=== PATIENT | male | born 1960 | race Caucasian/White ===

== ENCOUNTER 2016-09-11 11:43 | Inpatient (IN) | payer MEDICARE ==
[2016-09-11 13:02] LABS: Basophils % (A) 0 %; CH 30.9; CHCM 34.9; Eosinophils # (A) 0.1 k/uL (0-0.7); Eosinophils % (A) 1 %; HCT 45.6 % (39.0-53.0); HDW 2.67; HGB 16.5 gm/dL (13.0-17.5); Luc % (Auto) 1; Lymphocytes # (A) 1.1 k/uL (1.0-4.8); Lymphocytes % (A) 8 %; MCH 32.1 pg (25.0-35.0); MCHC 36.2 g/dL (31.0-37.0); MCV 88.9 fL (80.0-100.0); Mean Platelet Volume 6.6; Monocytes # (A) 0.6 k/uL (0-1.0); Monocytes % (A) 4 %; Neutrophils # (A) 12.2 k/uL (1.3-7.7); Neutrophils % (A) 87 %; RBC 5.13 m/uL (4.30-5.90); RDW 12.9 % (11.5-15.5); WBC (Perox) 13.68
[2016-09-11] MEDS ORDERED: SODIUM CHLORIDE 0.9% 1,000 ML IV ONE (13:06)
[2016-09-11] MEDS ORDERED: HYDROmorphone 1 MG/ML 1 ML SYRINGE IVP STA ×2 (13:06→15:48)
[2016-09-11] MEDS ORDERED: ONDANSETRON 4 MG/2 ML VIAL IVP STA (13:07)
--- NOTE | 2016-09-11 13:14 | ED ---
Abdominal Pain HPI <Christiano Garcia - Last Filed: 09/11/16 15:31> - General Source: patient, RN notes reviewed Mode of arrival: EMS Limitations: no limitations <Ale Esquivel - Last Filed: 09/11/16 16:10> - General Chief Complaint: Abdominal Pain Stated Complaint: Abd Pain Time Seen by Provider: 09/11/16 12:15 - History of Present Illness Initial Comments: Patient is a 56-year-old male presents emergency room for evaluation of abdominal pain. Patient states pain began last night after eating dinner and ice cream. Patient does state that he has a "bad gallbladder". Patient states that he has been having worsening pain throughout his abdomen. Patient does state that he was eating peaches earlier yesterday which causes him to have loose stools. Patient states he's been having a few episodes of explosive diarrhea throughout the night. Patient states he is very nauseous with vomiting. Patient states he has a history of appendectomy. Patient denies any other history of surgeries. Patient denies fevers or chills. Patient denies chest pain or shortness of breath. Patient denies headache or dizziness. Patient states he is having 10 out of 10 diffuse abdominal pain and cannot get comfortable. Patient denies new foods. Patient denies recent travel outside the country. Patient does state he was admitted at another hospital a few years ago for pancreatitis. Patient states symptoms do feel similar to pancreatitis. Patient denies smoking, illicit drug use or alcohol use. (Ale Esquivel) - Related Data Home Medications Medication Instructions Recorded Confirmed Cetirizine HCl [Zyrtec] 10 mg PO DAILY 08/09/15 09/11/16 Warfarin [Coumadin] 5 mg PO DIRECTED 08/09/15 09/11/16 Warfarin [Coumadin] 7.5 mg PO DIRECTED 08/09/15 09/11/16 Hydrochlorothiazide [Hydrodiuril] 25 mg PO DAILY 09/11/16 09/11/16 Meloxicam [Mobic] 15 mg PO BID 09/11/16 09/11/16 Ranitidine HCl 150 mg PO HS 09/11/16 09/11/16 oxyCODONE-APAP 10-325MG [Percocet 1 tab PO Q4H PRN 09/11/16 09/11/16 10-325 mg] Previous Rx's Medication Instructions Recorded Gabapentin [Neurontin] 300 mg PO TID #90 cap 10/30/15 Allergies Allergy/AdvReac Type Severity Reaction Status Date / Time doxycycline Allergy Unknown Verified 09/11/16 12:45 Review of Systems ROS Other: All systems not noted in ROS Statement are negative. <Christiano Garcia - Last Filed: 09/11/16 15:31> ROS Other: All systems not noted in ROS Statement are negative. <Ale Esquivel - Last Filed: 09/11/16 16:10> ROS Statement: Those systems with pertinent positive or pertinent negative responses have been documented in the HPI. Past Medical History Past Medical History: Asthma, COPD, Deep Vein Thrombosis (DVT), Osteoarthritis ( OA) Additional Past Medical History / Comment(s): lower back pain, hx pancreatitis History of Any Multi-Drug Resistant Organisms: None Reported Past Surgical History: Appendectomy, Orthopedic Surgery Additional Past Surgical History / Comment(s): meniscus repair rt knee, rt wrist surgery Past Anesthesia/Blood Transfusion Reactions: No Reported Reaction Past Psychological History: No Psychological Hx Reported Smoking Status: Never smoker Past Alcohol Use History: None Reported Past Drug Use History: None Reported - Past Family History Mother Family Medical History: Cancer, Deep Vein Thrombosis (DVT) Additional Family Medical History / Comment(s): lung cancer <Ale Esquivel - Last Filed: 09/11/16 16:10> General Exam <Christiano Garcia - Last Filed: 09/11/16 15:31> Limitations: no limitations General appearance: alert, in no apparent distress Head exam: Present: atraumatic, normocephalic, normal inspection Eye exam: Present: normal appearance ENT exam: Present: normal exam Neck exam: Present: normal inspection Respiratory exam: Present: normal lung sounds bilaterally. Absent: respiratory distress Cardiovascular Exam: Present: regular rate, normal rhythm, normal heart sounds GI/Abdominal exam: Present: soft, tenderness (Diffuse abdominal pain), guarding (voluntary guarding on palpation), normal bowel sounds. Absent: distended, rebound, rigid Extremities exam: Present: normal inspection Back exam: Present: normal inspection Neurological exam: Present: alert, oriented X3, CN II-XII intact, normal gait Psychiatric exam: Present: normal affect, normal mood Skin exam: Present: warm, dry, intact, normal color. Absent: rash <Ale Esquivel - Last Filed: 09/11/16 16:10> - General Exam Comments Initial Comments: Laying in exam room, uncomfortable secondary to discomfort (Ale Esquivel) Course <Christiano Garcia - Last Filed: 09/11/16 15:31> <Ale Esquivel - Last Filed: 09/11/16 16:10> Vital Signs 09/11/16 09/11/16 09/11/16 11:45 13:31 15:05 Temperature 97.6 F Pulse Rate 72 77 71 Respiratory 19 20 18 Rate Blood Pressure 160/95 164/75 156/75 O2 Sat by Pulse 100 98 97 Oximetry 09/11/16 16:06 Temperature 98.1 F Pulse Rate 77 Respiratory 20 Rate Blood Pressure 160/74 O2 Sat by Pulse 96 Oximetry - Reevaluation(s) Reevaluation #1: 09/11/16 15:31 I did personally do a [id number] evaluation the patient did discuss the findings with him. Patient does have evidence of acute pancreatitis also evidence of cholelithiasis and possible cholecystitis. I did discuss the case with Dr. Rollins, patient will be admitted with GI consultation as well as surgery consultation. I did consult the filtration operator surgeon directly. Patient does demonstrate midepigastric abdominal discomfort palpation he does demonstrate morgue obesity he has recently lost 60 pounds however. He did state he had a similar episode over a year ago at another facility. (Christiano Garcia) Medical Decision Making - Lab Data Result diagrams: 09/11/16 12:27 09/11/16 12:27 <Christiano Garcia - Last Filed: 09/11/16 15:31> - Lab Data Result diagrams: 09/11/16 12:27 09/11/16 12:27 - Radiology Data Radiology results: report reviewed, image reviewed <Ale Esquivel - Last Filed: 09/11/16 16:10> - Medical Decision Making Patient is a 56-year-old male presents to the emergency room for evaluation of diffuse abdominal pain. Labs significant for pancreatitis, liver enzymes elevated. Ultrasound significant for cholelithiasis, possible cholecystitis. Patient will be admitted. Case discussed with Dr. Garcia who discussed case with Dr. Segovia, who agreed to admit patient. Consult with surgery and GI. (Ale Esquivel) - Lab Data Lab Results 09/11/16 09/11/16 09/11/16 Range/Units 12:27 12:27 13:30 WBC 14.0 H (3.8-10.6) k/uL RBC 5.13 (4.30-5.90) m/uL Hgb 16.5 (13.0-17.5) gm/dL Hct 45.6 (39.0-53.0) % MCV 88.9 (80.0-100.0) fL MCH 32.1 (25.0-35.0) pg MCHC 36.2 (31.0-37.0) g/dL RDW 12.9 (11.5-15.5) % Plt Count 243 (150-450) k/uL Neutrophils % 87 % Lymphocytes % 8 % Monocytes % 4 % Eosinophils % 1 % Basophils % 0 % Neutrophils # 12.2 H (1.3-7.7) k/uL Lymphocytes # 1.1 (1.0-4.8) k/uL Monocytes # 0.6 (0-1.0) k/uL Eosinophils # 0.1 (0-0.7) k/uL Basophils # 0.0 (0-0.2) k/uL Sodium 141 (137-145) mmol/L Potassium 4.4 (3.5-5.1) mmol/L Chloride 104 (98-107) mmol/L Carbon Dioxide 21 L (22-30) mmol/L Anion Gap 16 mmol/L BUN 17 (9-20) mg/dL Creatinine 1.16 (0.66-1.25) mg/dL Est GFR (MDRD) Af Amer >60 (>60 ml/min/1.73 sqM) Est GFR (MDRD) Non-Af >60 (>60 ml/min/1.73 sqM) Glucose 137 H (74-99) mg/dL Calcium 9.3 (8.4-10.2) mg/dL Total Bilirubin 2.1 H (0.2-1.3) mg/dL AST 177 H (17-59) U/L ALT 159 H (21-72) U/L Alkaline Phosphatase 129 H (38-126) U/L Total Protein 7.1 (6.3-8.2) g/dL Albumin 4.2 (3.5-5.0) g/dL Amylase 3226 H* (30-110) U/L Lipase >92848 H (23-300) U/L Urine Color Yellow Urine Appearance Clear (Clear) Urine pH 5.5 (5.0-8.0) Ur Specific [place] 1.007 (1.001-1.035) Urine Protein Negative (Negative) Urine Glucose (UA) Negative (Negative) Urine Ketones Trace H (Negative) Urine Blood Negative (Negative) Urine Nitrite Negative (Negative) Urine Bilirubin Negative (Negative) Urine Urobilinogen <2.0 (<2.0) mg/dL Ur Leukocyte Esterase Negative (Negative) Disposition <Christiano Garcia - Last Filed: 09/11/16 15:31> Decision Date: 09/11/16 <Ale Esquivel - Last Filed: 09/11/16 16:10> Clinical Impression: Pancreatitis, Cholelithiasis Disposition: ADMITTED IP TO THIS [facility] Condition: Stable
[2016-09-11 13:17] LABS: ALT 159 U/L (21-72); AST 177 U/L (17-59); Alkaline Phosphatase 129 U/L (38-126); Anion Gap 16 mmol/L; Blood Urea Nitrogen 17 mg/dL (9-20); Calcium 9.3 mg/dL (8.4-10.2); Carbon Dioxide 21 mmol/L (22-30); Chloride 104 mmol/L (98-107); Glucose 137 mg/dL (74-99); Non-African American GFR(MDRD) >60 (>60 ml/min/1.73 sqM); Potassium 4.4 mmol/L (3.5-5.1); Sodium 141 mmol/L (137-145); Total Bilirubin 2.1 mg/dL (0.2-1.3); Total Protein 7.1 g/dL (6.3-8.2)
[2016-09-11 13:39] LABS: Amylase 3226 U/L (30-110)
[2016-09-11 13:45] LABS: Appearance,Urine Clear (Clear); Bilirubin,Urine Negative (Negative); Glucose,Urine (UA) Negative (Negative); Ketones,Urine Trace (Negative); Leukocyte Esterase,Urine Negative (Negative); Nitrite,Urine Negative (Negative); PH, Urine 5.5 (5.0-8.0); Protein,Urine Negative (Negative); Specific Gravity,Urine 1.007 (1.001-1.035); UA Billing (MACRO vs. MICRO) CHEM; Urobilinogen,Urine <2.0 mg/dL (<2.0)
--- NOTE | 2016-09-11 14:32 | US ---
EXAMINATION TYPE: US abdomen limited DATE OF EXAM: 09/11/2016 COMPARISON: NONE CLINICAL HISTORY: Pain. Abdominal pain, nausea EXAM MEASUREMENTS: Liver Length: 18.3 cm Gallbladder Wall: 0.4 cm CBD: 0.6 cm Right Kidney: 11.0 x 5.3 x 5.4 cm *Technical limitations due to patient's body habitus (380 pounds) and large amount of overlying bowel content Pancreas: Obscured by bowel gas Liver: limited evaluation Gallbladder: multiple stones, GB wall is thickened, the gallbladder is hydropic. Evidence for sonographic Concepcion's sign: yes CBD: limited evaluation Right Kidney: cystic area mid = 0.7cm. ?possible hypoechoic area upper pole = 2.9 x 1.9 x 2.2cm vs. normal lobulated tissue There is no ascites. IMPRESSION: The exam is limited due to patient body habitus. Coarse echotexture within the liver like ly reflects fatty infiltration, the liver is thought likely to be enlarged. Cholelithiasis, correlate for cholecystitis. Possible renal cyst not well evaluated on the right. Lobular contour is noted, di fficult to exclude mass at the upper pole.
--- NOTE | 2016-09-11 14:40 | XR ---
Abdomen HISTORY: Pain Frontal view of the abdomen submitted on 2 images There is a dextroscoliosis centered at approximately L2. Multilevel spondylosis is present. Lung base s are clear. Heart size appears borderline increased. No pneumothorax or pleural effusion. There are some distended loops of small bowel present. Some associated air-fluid level suspected. No pneumoperi toneum. impression: Findings may be due to enteritis or ileus, consider additional imaging if bowel obstructi on is suspected clinically. Borderline cardiac size.
[2016-09-11] MEDS ORDERED: NALOXONE 0.4 MG/ML 1 ML VIAL IV PRN (15:40)
[2016-09-11] MEDS ORDERED: KETOROLAC 30 MG/ML 1 ML VIAL IVP STA (15:48)
--- NOTE | 2016-09-11 15:59 | P.GSCN ---
History of Present Illness Consult date: 09/11/16 Reason for Consult: Abdominal pain History of present illness: Patient is a 56-year-old morbidly obese white male who presents to the emergency room with a complaint of diffuse abdominal pain. The pain started in the periumbilical area and became diffuse and increased in intensity over last night. The patient states that he had not eaten anything unusual. He does have a history of gallbladder disease in the past. He has had a history of pancreatitis in the past as well. An ultrasound revealed cholelithiasis and laboratory studies revealed an elevated white count of 14 amylase 3226 lipase of 20,000. Bili 2.1 AST 177 ALTs 159. Past surgical history: 1. Appendectomy 2. Knee surgery 3. Wrist surgery Medical history: Asthma COPD DVT Osteoarthritis. Which he has opioid use Social history: Smoking negative Alcohol negative Review of systems: HEENT negative Lungs: Asthma COPD Heart: Negative GI: Constipation related to opioids for back this disease Gallbladder disease/pancreatitis : Negative Review of Systems - Constitutional Constitutional Comment(s): Morbid obesity Reports as per HPI - Respiratory Reports as per HPI - Gastrointestinal Reports as per HPI - Musculoskeletal Musculoskeleta Comment(s): Back pain osteoarthritis Reports as per HPI Past Medical History Past Medical History: Asthma, COPD, Deep Vein Thrombosis (DVT), Osteoarthritis ( OA) Additional Past Medical History / Comment(s): lower back pain, hx pancreatitis History of Any Multi-Drug Resistant Organisms: None Reported Past Surgical History: Appendectomy, Orthopedic Surgery Additional Past Surgical History / Comment(s): meniscus repair rt knee, rt wrist surgery Past Anesthesia/Blood Transfusion Reactions: No Reported Reaction Past Psychological History: No Psychological Hx Reported Smoking Status: Never smoker Past Alcohol Use History: None Reported Past Drug Use History: None Reported - Past Family History Mother Family Medical History: Cancer, Deep Vein Thrombosis (DVT) Additional Family Medical History / Comment(s): lung cancer Medications and Allergies Home Medications Medication Instructions Recorded Confirmed Type Cetirizine HCl [Zyrtec] 10 mg PO DAILY 08/09/15 09/11/16 History Warfarin [Coumadin] 5 mg PO DIRECTED 08/09/15 09/11/16 History Warfarin [Coumadin] 7.5 mg PO DIRECTED 08/09/15 09/11/16 History Hydrochlorothiazide [Hydrodiuril] 25 mg PO DAILY 09/11/16 09/11/16 History Meloxicam [Mobic] 15 mg PO BID 09/11/16 09/11/16 History Ranitidine HCl 150 mg PO HS 09/11/16 09/11/16 History oxyCODONE-APAP 10-325MG [Percocet 1 tab PO Q4H PRN 09/11/16 09/11/16 History 10-325 mg] Allergies Allergy/AdvReac Type Severity Reaction Status Date / Time doxycycline Allergy Unknown Verified 09/11/16 12:45 Surgical - Exam Vital Signs Temp Pulse Resp BP Pulse Ox 97.6 F 72 19 160/95 100 09/11/16 11:45 09/11/16 11:45 09/11/16 11:45 09/11/16 11:45 09/11/16 11:45 - General obese - Eyes normal ocular movement - ENT normal pinna, normal nares, no hearing loss - Neck no masses, trachea midline, no lymphadectomy, no venous distension - Respiratory normal expansion, normal respiratory effort, clear to auscultation - Cardiovascular Rhythm: regular Heart Sounds: normal: S1, S2 - Abdomen Diffuse mild tenderness No guarding or rebound - Psychiatric oriented to time, oriented to person, oriented to place, speech is normal Results - Labs 09/11/16 12:27 09/11/16 12:27 Abnormal Lab Results - Last 24 Hours (Table) 09/11/16 09/11/16 09/11/16 Range/Units 12:27 12:27 13:30 WBC 14.0 H (3.8-10.6) k/uL Neutrophils # 12.2 H (1.3-7.7) k/uL Carbon Dioxide 21 L (22-30) mmol/L Glucose 137 H (74-99) mg/dL Total Bilirubin 2.1 H (0.2-1.3) mg/dL AST 177 H (17-59) U/L ALT 159 H (21-72) U/L Alkaline Phosphatase 129 H (38-126) U/L Amylase 3226 H* (30-110) U/L Lipase >08767 H (23-300) U/L Urine Ketones Trace H (Negative) Diabetes panel 09/11/16 Range/Units 12:27 Sodium 141 (137-145) mmol/L Potassium 4.4 (3.5-5.1) mmol/L Chloride 104 (98-107) mmol/L Carbon Dioxide 21 L (22-30) mmol/L BUN 17 (9-20) mg/dL Creatinine 1.16 (0.66-1.25) mg/dL Glucose 137 H (74-99) mg/dL Calcium 9.3 (8.4-10.2) mg/dL AST 177 H (17-59) U/L ALT 159 H (21-72) U/L Alkaline Phosphatase 129 H (38-126) U/L Total Protein 7.1 (6.3-8.2) g/dL Albumin 4.2 (3.5-5.0) g/dL Calcium panel 09/11/16 Range/Units 12:27 Calcium 9.3 (8.4-10.2) mg/dL Albumin 4.2 (3.5-5.0) g/dL Pituitary panel 09/11/16 Range/Units 12:27 Sodium 141 (137-145) mmol/L Potassium 4.4 (3.5-5.1) mmol/L Chloride 104 (98-107) mmol/L Carbon Dioxide 21 L (22-30) mmol/L BUN 17 (9-20) mg/dL Creatinine 1.16 (0.66-1.25) mg/dL Glucose 137 H (74-99) mg/dL Calcium 9.3 (8.4-10.2) mg/dL Adrenal panel 09/11/16 Range/Units 12:27 Sodium 141 (137-145) mmol/L Potassium 4.4 (3.5-5.1) mmol/L Chloride 104 (98-107) mmol/L Carbon Dioxide 21 L (22-30) mmol/L BUN 17 (9-20) mg/dL Creatinine 1.16 (0.66-1.25) mg/dL Glucose 137 H (74-99) mg/dL Calcium 9.3 (8.4-10.2) mg/dL Total Bilirubin 2.1 H (0.2-1.3) mg/dL AST 177 H (17-59) U/L ALT 159 H (21-72) U/L Alkaline Phosphatase 129 H (38-126) U/L Total Protein 7.1 (6.3-8.2) g/dL Albumin 4.2 (3.5-5.0) g/dL - Imaging US - abdomen: report reviewed Assessment and Plan Plan: Impression/plan: 1. 56-year-old white male morbid obesity 2. Gallstone pancreatitis 3. Osteoarthritis with back pain 4. Prior history of DVT Plan: 1. Admission and IV hydration 2. GI consult 3. Medical management 4. Repeat LFTs lipase and amylase in a.m.
[2016-09-11] MEDS: SODIUM CHLORIDE 0.9% 1,000 ML IV SCH (16:13)
--- NOTE | 2016-09-11 17:29 | P.HPIM ---
History of Present Illness Patient is a 56-year-old morbidly obese white male who presents to the emergency room with a complaint of diffuse abdominal pain. The pain started in the periumbilical area and became diffuse and increased in intensity over last night. The patient states that he had not eaten anything unusual. He does have a history of gallbladder disease in the past. He has had a history of pancreatitis in the past as well. His pain is about 10 x 10 in severity sharp in nature to myself with nausea no vomiting. An ultrasound revealed cholelithiasis and laboratory studies revealed an elevated white count of 14 amylase 3226 lipase of 20,000. Bili 2.1 AST 177 ALTs 159. Review of Systems REVIEW OF SYSTEMS: CONSTITUTIONAL: No fever, no malaise, no fatigue. HEENT: No recent visual problems or hearing problems. Denied any sore throat. CARDIOVASCULAR: No chest pain, orthopnea, PND, no palpitations, no syncope. PULMONARY: No shortness of breath, no cough, no hemoptysis. GASTROINTESTINAL: As described in HPI NEUROLOGICAL: No headaches, no weakness, no numbness. HEMATOLOGICAL: Denies any bleeding or petechiae. GENITOURINARY: Denies any burning micturition, frequency, or urgency. MUSCULOSKELETAL/RHEUMATOLOGICAL: Denies any joint pain, swelling, or any muscle pain. ENDOCRINE: Denies any polyuria or polydipsia. The rest of the 14-point review of systems is negative. Past Medical History Past Medical History: Asthma, COPD, Deep Vein Thrombosis (DVT), Osteoarthritis ( OA) Additional Past Medical History / Comment(s): lower back pain, hx pancreatitis History of Any Multi-Drug Resistant Organisms: None Reported Past Surgical History: Appendectomy, Orthopedic Surgery Additional Past Surgical History / Comment(s): meniscus repair rt knee, lt wrist surgery Past Anesthesia/Blood Transfusion Reactions: No Reported Reaction Past Psychological History: No Psychological Hx Reported Smoking Status: Never smoker Past Alcohol Use History: None Reported Past Drug Use History: None Reported - Past Family History Mother Family Medical History: Cancer, Deep Vein Thrombosis (DVT) Additional Family Medical History / Comment(s): lung cancer Medications and Allergies Home Medications Medication Instructions Recorded Confirmed Type Cetirizine HCl [Zyrtec] 10 mg PO DAILY 08/09/15 09/11/16 History Warfarin [Coumadin] 5 mg PO DIRECTED 08/09/15 09/11/16 History Warfarin [Coumadin] 7.5 mg PO DIRECTED 08/09/15 09/11/16 History Hydrochlorothiazide [Hydrodiuril] 25 mg PO DAILY 09/11/16 09/11/16 History Meloxicam [Mobic] 15 mg PO BID 09/11/16 09/11/16 History Ranitidine HCl 150 mg PO HS 09/11/16 09/11/16 History oxyCODONE-APAP 10-325MG [Percocet 1 tab PO Q4H PRN 09/11/16 09/11/16 History 10-325 mg] Allergies Allergy/AdvReac Type Severity Reaction Status Date / Time doxycycline Allergy Unknown Verified 09/11/16 12:45 Physical Exam Vitals: Vital Signs Temp Pulse Pulse Resp BP BP Pulse Ox 09/11/16 16:49 97.9 F 69 16 168/91 96 09/11/16 16:06 98.1 F 77 20 160/74 96 09/11/16 15:05 71 18 156/75 97 09/11/16 13:31 77 20 164/75 98 09/11/16 11:45 97.6 F 72 19 160/95 100 Intake and Output 09/11/16 09/11/16 09/11/16 06:59 14:59 22:59 Other: Voiding Method Toilet Weight 172.365 kg Patient Weight 09/12/16 06:59 Weight 172.365 kg PHYSICAL EXAMINATION: GENERAL: The patient is alert and oriented x3, not in any acute distress. Well developed, well nourished. HEENT: Pupils are round and equally reacting to light. EOMI. No scleral icterus. No conjunctival pallor. Normocephalic, atraumatic. No pharyngeal erythema. No thyromegaly. CARDIOVASCULAR: S1 and S2 present. No murmurs, rubs, or gallops. PULMONARY: Chest is clear to auscultation, no wheezing or crackles. ABDOMEN: Soft, tenderness in the left upper quadrant area, morbidly obese belly. No rebound or rigidity. Bowel sounds are present. MUSCULOSKELETAL: No joint swelling or deformity. EXTREMITIES: No cyanosis, clubbing, or pedal edema. NEUROLOGICAL: Gross neurological examination did not reveal any focal deficits. SKIN: No rashes. Results CBC & Chem 7: 09/11/16 12:27 09/11/16 12:27 Labs: Abnormal Lab Results - Last 24 Hours (Table) 09/11/16 09/11/16 09/11/16 Range/Units 12:27 12:27 13:30 WBC 14.0 H (3.8-10.6) k/uL Neutrophils # 12.2 H (1.3-7.7) k/uL Carbon Dioxide 21 L (22-30) mmol/L Glucose 137 H (74-99) mg/dL Total Bilirubin 2.1 H (0.2-1.3) mg/dL AST 177 H (17-59) U/L ALT 159 H (21-72) U/L Alkaline Phosphatase 129 H (38-126) U/L Amylase 3226 H* (30-110) U/L Lipase >62436 H (23-300) U/L Urine Ketones Trace H (Negative) Thrombosis Risk Factor Assmnt - Choose All That Apply Each Factor Represents 1 point: Age 41-60 years, Obesity (BMI >25) Each Risk Factor Represents 3 Points: History of DVT/PE Thrombosis Risk Factor Assessment Total Risk Factor Score: 5 Thrombosis Risk Factor Assessment Level: High Risk Assessment and Plan Plan: #1 gallstone Pancreatitis: Patient will be nothing by mouth patient will was started on IV fluids which will be continued. Surgery was consulted. Opiate in ano. An analgesia for pain 2 elevated liver enzymes due to cholelithiasis possible choledocholithiasis for which gastro-oncology was consulted. 3 morbid obesity: Patient apparently lost 60 pounds of weight and still trying to lose weight. Patient will benefit from sleep apnea evaluation. #4 hypertension: Hydrocodone as it will be held as patient is on IV fluids. 5 DVT in the past on Coumadin, DVT is more than 6 months to hold off on Coumadin for now. #6 as well without any acute exacerbation.
[2016-09-11 17:55] LABS: INR 3.1 (<1.2); Prothrombin Time 29.5 sec (9.0-12.0)
[2016-09-11] MEDS: HYDROmorphone 1 MG/ML 1 ML SYRINGE IV PRN ×2 (19:48→22:25)
[2016-09-11] MEDS: KETOROLAC 30 MG/ML 1 ML VIAL IVP PRN (20:47)
[2016-09-11] MEDS: PANTOPRAZOLE 40 MG/10 ML VIAL IVP SCH (20:48)
[2016-09-12] MEDS: HYDROmorphone 1 MG/ML 1 ML SYRINGE IV PRN ×5 (00:28→07:44)
[2016-09-12] MEDS: SODIUM CHLORIDE 0.9% 1,000 ML IV SCH ×3 (02:23→20:10)
[2016-09-12] MEDS: KETOROLAC 30 MG/ML 1 ML VIAL IVP PRN ×4 (02:54→22:22)
[2016-09-12 07:26] LABS: Basophils % (A) 0 %; CH 31.3; CHCM 34.2; Eosinophils % (A) 0 %; HCT 46.4 % (39.0-53.0); HDW 2.51; HGB 15.7 gm/dL (13.0-17.5); INR 3.6 (<1.2); Luc # (Auto) 0.08; Luc % (Auto) 1; Lymphocytes # (A) 0.9 k/uL (1.0-4.8); Lymphocytes % (A) 6 %; MCH 31.1 pg (25.0-35.0); MCHC 33.9 g/dL (31.0-37.0); MCV 91.8 fL (80.0-100.0); Mean Platelet Volume 6.6; Monocytes # (A) 0.5 k/uL (0-1.0); Monocytes % (A) 3 %; Neutrophils # (A) 12.6 k/uL (1.3-7.7); Neutrophils % (A) 90 %; Prothrombin Time 35.4 sec (9.0-12.0); RBC 5.06 m/uL (4.30-5.90); RDW 12.8 % (11.5-15.5); WBC (Perox) 13.83
[2016-09-12 07:30] LABS: ALT 125 U/L (21-72); AST 77 U/L (17-59); Alkaline Phosphatase 110 U/L (38-126); Anion Gap 13 mmol/L; Blood Urea Nitrogen 20 mg/dL (9-20); Calcium 8.5 mg/dL (8.4-10.2); Carbon Dioxide 21 mmol/L (22-30); Chloride 105 mmol/L (98-107); Glucose 111 mg/dL (74-99); Non-African American GFR(MDRD) >60 (>60 ml/min/1.73 sqM); Potassium 3.9 mmol/L (3.5-5.1); Sodium 139 mmol/L (137-145); Total Protein 6.5 g/dL (6.3-8.2)
[2016-09-12 07:36] LABS: Amylase 1711 U/L (30-110)
[2016-09-12] MEDS: PANTOPRAZOLE 40 MG/10 ML VIAL IVP SCH ×2 (07:47→22:12)
[2016-09-12] MEDS: HYDROmorphone 2 MG/ML 1 ML SYRINGE IVP PRN ×6 (09:20→22:11)
--- NOTE | 2016-09-12 10:38 | P.PN ---
Subjective Patient is a 56-year-old morbidly morbidly obese white male who presented to the emergency room with a complaint of midepigastric abdominal discomfort. He was noted to have gallstone pancreatitis. The pain has become less at this time. Patient's amylase is decreased to 1711 and his lipase to 6006. He is been seen in consultation by Dr. Oconnor for possible ERCP. Objective - Vital Signs Vital signs: Vital Signs Temp 98.1 F 09/12/16 07:00 Pulse 90 09/12/16 07:00 Resp 15 09/12/16 07:00 BP 179/97 09/12/16 07:00 Pulse Ox 96 09/12/16 03:33 Intake & Output 09/11/16 09/12/16 09/12/16 18:59 06:59 18:59 Intake Total 1100 Output Total 100 Balance 1000 Weight 172.365 kg Intake: Intake, IV Titration 800 Amount Sodium Chloride 0.9% 1, 800 000 ml @ 100 mls/hr IV . Q10H BRIGITTE Rx#:[id number] Oral 300 Output: Urine 100 Other: Voiding Method Toilet Toilet # Voids 2 - Constitutional General appearance: Present: morbidly obese - Respiratory Respiratory: bilateral: CTA - Cardiovascular Rhythm: regular Heart sounds: normal: S1, S2 - Gastrointestinal Gastrointestinal Comment(s): Tenderness midepigastric and right upper quadrant area No guarding or rebound - Psychiatric Psychiatric: Present: A&O x's 3, appropriate affect, intact judgment & insight - Labs CBC & Chem 7: 09/12/16 06:18 09/12/16 06:18 Labs: Abnormal Lab Results - Last 24 Hours (Table) 09/11/16 09/11/16 09/11/16 Range/Units 12:27 12:27 12:27 WBC 14.0 H (3.8-10.6) k/uL Neutrophils # 12.2 H (1.3-7.7) k/uL Lymphocytes # (1.0-4.8) k/uL PT 29.5 H (9.0-12.0) sec INR 3.1 H (<1.2) Carbon Dioxide 21 L (22-30) mmol/L Glucose 137 H (74-99) mg/dL Total Bilirubin 2.1 H (0.2-1.3) mg/dL AST 177 H (17-59) U/L ALT 159 H (21-72) U/L Alkaline Phosphatase 129 H (38-126) U/L Amylase 3226 H* (30-110) U/L Lipase >43222 H (23-300) U/L Urine Ketones (Negative) 09/11/16 09/11/16 09/12/16 Range/Units 13:30 16:48 06:18 WBC 14.0 H (3.8-10.6) k/uL Neutrophils # 12.6 H (1.3-7.7) k/uL Lymphocytes # 0.9 L (1.0-4.8) k/uL PT (9.0-12.0) sec INR (<1.2) Carbon Dioxide (22-30) mmol/L Glucose (74-99) mg/dL Total Bilirubin (0.2-1.3) mg/dL AST (17-59) U/L ALT (21-72) U/L Alkaline Phosphatase (38-126) U/L Amylase 2661 H* (30-110) U/L Lipase (23-300) U/L Urine Ketones Trace H (Negative) 09/12/16 09/12/16 Range/Units 06:18 06:18 WBC (3.8-10.6) k/uL Neutrophils # (1.3-7.7) k/uL Lymphocytes # (1.0-4.8) k/uL PT 35.4 H (9.0-12.0) sec INR 3.6 H (<1.2) Carbon Dioxide 21 L (22-30) mmol/L Glucose 111 H (74-99) mg/dL Total Bilirubin (0.2-1.3) mg/dL AST 77 H (17-59) U/L ALT 125 H (21-72) U/L Alkaline Phosphatase (38-126) U/L Amylase 1711 H* (30-110) U/L Lipase 6006 H (23-300) U/L Urine Ketones (Negative) Assessment and Plan Plan: Impression/plan: 1. 56-year-old white male morbid obesity 2. Gallstone pancreatitis 3. Osteoarthritis with back pain 4. Prior history of DVT Plan: 1. Admission and IV hydration 2. GI consult 3. Medical management 4. Repeat LFTs lipase and amylase in a.m. 5. Recommend DVT prophylaxis
[2016-09-12] MEDS ORDERED: BISACODYL 10 MG SUPP RECTAL STA (13:48)
--- NOTE | 2016-09-12 14:14 | P.PN ---
Subjective Patient was admitted for gall stone pancreatitis. His symptoms of epigastric abdominal pain improved, lipase improved and liver enzymes improved. Patient will remain nothing by mouth today. Patient is coming of constipation and patient does have some intertrigo and patient was started on nystatin topical. REVIEW OF SYSTEMS: CARDIOVASCULAR: No chest pain, no orthopnea, no PND, no palpitations. PULMONARY: Denied any shortness of breath. No cough or hemoptysis. GASTROINTESTINAL: As described in HPI NEUROLOGIC: No headaches, no weakness, no numbness. Objective - Vital Signs Vital signs: Vital Signs Temp 98 F 09/12/16 13:54 Pulse 86 09/12/16 13:54 Resp 16 09/12/16 13:54 BP 146/85 09/12/16 13:54 Pulse Ox 98 09/12/16 13:54 Intake & Output 09/11/16 09/12/16 09/12/16 18:59 06:59 18:59 Intake Total 1100 Output Total 100 Balance 1000 Weight 172.365 kg Intake: Intake, IV Titration 800 Amount Sodium Chloride 0.9% 1, 800 000 ml @ 100 mls/hr IV . Q10H [facility] Rx#:[id number] Oral 300 Output: Urine 100 Other: Voiding Method Toilet Toilet # Voids 2 - Exam GENERAL: The patient is alert and oriented x3, not in any acute distress. Well developed, well nourished. HEENT: Pupils are round and equally reacting to light. EOMI. No scleral icterus. No conjunctival pallor. Normocephalic, atraumatic. No pharyngeal erythema. No thyromegaly. CARDIOVASCULAR: S1 and S2 present. No murmurs, rubs, or gallops. PULMONARY: Chest is clear to auscultation, no wheezing or crackles. ABDOMEN: Soft, tenderness in the left upper quadrant area, morbidly obese belly. No rebound or rigidity. Bowel sounds are present. MUSCULOSKELETAL: No joint swelling or deformity. EXTREMITIES: No cyanosis, clubbing, or pedal edema. NEUROLOGICAL: Gross neurological examination did not reveal any focal deficits. SKIN: No rashes. - Labs CBC & Chem 7: 09/12/16 06:18 09/12/16 06:18 Labs: Abnormal Lab Results - Last 24 Hours (Table) 09/11/16 09/11/16 09/12/16 Range/Units 12:27 16:48 06:18 WBC 14.0 H (3.8-10.6) k/uL Neutrophils # 12.6 H (1.3-7.7) k/uL Lymphocytes # 0.9 L (1.0-4.8) k/uL PT 29.5 H (9.0-12.0) sec INR 3.1 H (<1.2) Carbon Dioxide (22-30) mmol/L Glucose (74-99) mg/dL AST (17-59) U/L ALT (21-72) U/L Amylase 2661 H* (30-110) U/L Lipase (23-300) U/L 09/12/16 09/12/16 Range/Units 06:18 06:18 WBC (3.8-10.6) k/uL Neutrophils # (1.3-7.7) k/uL Lymphocytes # (1.0-4.8) k/uL PT 35.4 H (9.0-12.0) sec INR 3.6 H (<1.2) Carbon Dioxide 21 L (22-30) mmol/L Glucose 111 H (74-99) mg/dL AST 77 H (17-59) U/L ALT 125 H (21-72) U/L Amylase 1711 H* (30-110) U/L Lipase 6006 H (23-300) U/L Assessment and Plan Plan: #1 gallstone Pancreatitis: Patient will be nothing by mouth patient will was started on IV fluids which will be continued. Surgery was consulted. Opiate in ano. An analgesia for pain today patient will remain nothing by mouth. 2 elevated liver enzymes due to cholelithiasis possible choledocholithiasis for which gastro-oncology was consulted. 3 morbid obesity: Patient apparently lost 60 pounds of weight and still trying to lose weight. Patient will benefit from sleep apnea evaluation. #4 hypertension: Hydrocodone as it will be held as patient is on IV fluids. 5 DVT in the past on Coumadin, INR is subtherapeutic will continue to hold and repeat INR tomorrow #6 as well without any acute exacerbation. 7constipation will use rectal suppository.
[2016-09-12] MEDS: HEPARIN SODIUM,PORCINE 5,000 UNIT/ML 1 ML VIAL SQ SCH (15:46)
[2016-09-13] MEDS: HYDROmorphone 2 MG/ML 1 ML SYRINGE IVP PRN ×10 (00:20→20:06)
[2016-09-13] MEDS: HEPARIN SODIUM,PORCINE 5,000 UNIT/ML 1 ML VIAL SQ SCH ×2 (00:20→08:24)
[2016-09-13] MEDS: KETOROLAC 30 MG/ML 1 ML VIAL IVP PRN ×4 (04:32→23:51)
--- NOTE | 2016-09-13 07:52 | P.CONS ---
History of Present Illness - Reason for Consult Consult date: 09/12/16 Acute pancreatitis - History of Present Illness The patient is a 56-year-old morbidly obese white male who presented to the emergency room with the complaint of diffuse abdominal pain. The pain started in the periumbilical area and became diffuse and increased in intensity. He does have a history of gallbladder disease and had a similar episode in the past and was working on loosing weight in anticipation of cholecystectomy at some point. An ultrasound revealed cholelithiasis and laboratory studies revealed an elevated white count of 14 amylase 3226 lipase of 20,000. Bili 2.1 AST 177 ALTs 159. Review of Systems Constitutional: Denies fever, chills, sweats, weight gain, or loss. HEENT: Negative for migraines, blurred vision or loss, earaches, drainage, tinnitus, oral mucosal lesions, dysphagia, or odynophagia. Cardiac: Hypertension. Negative for chest pain, arrhythmias, or palpitation. Respiratory: Negative for shortness of breath, hemoptysis, cough, or sputum production. Gastrointestinal: See HPI for pertinent findings. Genitourinary: Negative for hematuria, urgency, frequency, polyuria, dysuria, or penile discharge. Musculoskeletal: Negative for muscle aches, swelling, arthritis, and arthralgias. Neurologic: RLS. Negative for stroke or TIA. Endocrine: Diabetes. Negative for thyroid problems. Skin: Negative for rash or itching. Psychiatric: Negative history for depression and anxiety Past Medical History Past Medical History: Asthma, COPD, Deep Vein Thrombosis (DVT), Osteoarthritis ( OA) Additional Past Medical History / Comment(s): lower back pain, hx pancreatitis History of Any Multi-Drug Resistant Organisms: None Reported Past Surgical History: Appendectomy, Orthopedic Surgery Additional Past Surgical History / Comment(s): meniscus repair rt knee, lt wrist surgery Past Anesthesia/Blood Transfusion Reactions: No Reported Reaction Past Psychological History: No Psychological Hx Reported Smoking Status: Never smoker Past Alcohol Use History: None Reported Past Drug Use History: None Reported - Past Family History Mother Family Medical History: Cancer, Deep Vein Thrombosis (DVT) Additional Family Medical History / Comment(s): lung cancer Medications and Allergies Home Medications Medication Instructions Recorded Confirmed Type Cetirizine HCl [Zyrtec] 10 mg PO DAILY 08/09/15 09/11/16 History Warfarin [Coumadin] 5 mg PO DIRECTED 08/09/15 09/11/16 History Warfarin [Coumadin] 7.5 mg PO DIRECTED 08/09/15 09/11/16 History Hydrochlorothiazide [Hydrodiuril] 25 mg PO DAILY 09/11/16 09/11/16 History Meloxicam [Mobic] 15 mg PO BID 09/11/16 09/11/16 History Ranitidine HCl 150 mg PO HS 09/11/16 09/11/16 History oxyCODONE-APAP 10-325MG [Percocet 1 tab PO Q4H PRN 09/11/16 09/11/16 History 10-325 mg] Allergies Allergy/AdvReac Type Severity Reaction Status Date / Time doxycycline Allergy Unknown Verified 09/11/16 12:45 Physical Exam Vitals: Vital Signs Temp Pulse Pulse Resp BP BP Pulse Ox 09/12/16 07:00 98.1 F 90 15 179/97 09/12/16 03:33 97.7 F 90 18 169/83 96 09/11/16 20:13 97.7 F 91 16 172/98 91 L 09/11/16 16:49 97.9 F 69 16 168/91 96 09/11/16 16:06 98.1 F 77 20 160/74 96 09/11/16 15:05 71 18 156/75 97 09/11/16 13:31 77 20 164/75 98 09/11/16 11:45 97.6 F 72 19 160/95 100 Intake and Output 09/11/16 09/12/16 09/12/16 22:59 06:59 14:59 Intake Total 50 1050 Output Total 100 Balance -50 1050 Intake: Intake, IV Titration 800 Amount Sodium Chloride 0.9% 1, 800 000 ml @ 100 mls/hr IV . Q10H [facility] Rx#:[id number] Oral 50 250 Output: Urine 100 Other: Voiding Method Toilet Toilet # Voids 2 General appearance: The patient is alert, oriented, in no acute distress. HET: Head is normocephalic and atraumatic. Conjunctivae pink, sclerae icteric. Pupils are equal and reactive. Oropharynx is clear without lesions. Neck: Supple without lymphadenopathy. Trachea midline. Heart: S1 S2. Lungs: No crackles or wheezes are heard. Abdomen: Soft, nontender, nondistended with bowel sounds. No peritoneal signs. No palpable organomegaly or masses. Extremities: Normal skin color and turgor. No cyanosis, rash, ulceration, clubbing, or edema. Radial and pedal pulses are 2/4 bilaterally. Neurological: No focal deficits. Strength and sensation are grossly intact. Results CBC & Chem 7: 09/12/16 06:18 09/12/16 06:18 Labs: Abnormal Lab Results - Last 24 Hours (Table) 09/11/16 09/11/16 09/11/16 Range/Units 12:27 12:27 12:27 WBC 14.0 H (3.8-10.6) k/uL Neutrophils # 12.2 H (1.3-7.7) k/uL Lymphocytes # (1.0-4.8) k/uL PT 29.5 H (9.0-12.0) sec INR 3.1 H (<1.2) Carbon Dioxide 21 L (22-30) mmol/L Glucose 137 H (74-99) mg/dL Total Bilirubin 2.1 H (0.2-1.3) mg/dL AST 177 H (17-59) U/L ALT 159 H (21-72) U/L Alkaline Phosphatase 129 H (38-126) U/L Amylase 3226 H* (30-110) U/L Lipase >79822 H (23-300) U/L Urine Ketones (Negative) 09/11/16 09/11/16 09/12/16 Range/Units 13:30 16:48 06:18 WBC 14.0 H (3.8-10.6) k/uL Neutrophils # 12.6 H (1.3-7.7) k/uL Lymphocytes # 0.9 L (1.0-4.8) k/uL PT (9.0-12.0) sec INR (<1.2) Carbon Dioxide (22-30) mmol/L Glucose (74-99) mg/dL Total Bilirubin (0.2-1.3) mg/dL AST (17-59) U/L ALT (21-72) U/L Alkaline Phosphatase (38-126) U/L Amylase 2661 H* (30-110) U/L Lipase (23-300) U/L Urine Ketones Trace H (Negative) 09/12/16 09/12/16 Range/Units 06:18 06:18 WBC (3.8-10.6) k/uL Neutrophils # (1.3-7.7) k/uL Lymphocytes # (1.0-4.8) k/uL PT 35.4 H (9.0-12.0) sec INR 3.6 H (<1.2) Carbon Dioxide 21 L (22-30) mmol/L Glucose 111 H (74-99) mg/dL Total Bilirubin (0.2-1.3) mg/dL AST 77 H (17-59) U/L ALT 125 H (21-72) U/L Alkaline Phosphatase (38-126) U/L Amylase 1711 H* (30-110) U/L Lipase 6006 H (23-300) U/L Urine Ketones (Negative) Assessment and Plan Plan: 56-year old male with cholelithiasis and GS pancreatitis. Agree with current management. I will consider an ERCP prior to cholecystectomy if his liver enzymes do not resolve completely to indicate passing a CBD stone. I will follow closely with you.
[2016-09-13] MEDS: PANTOPRAZOLE 40 MG/10 ML VIAL IVP SCH ×2 (08:24→20:06)
[2016-09-13] MEDS: SODIUM CHLORIDE 0.9% 1,000 ML IV SCH ×2 (08:24→18:00)
[2016-09-13] MEDS: ONDANSETRON 4 MG/2 ML VIAL IVP PRN (08:28)
[2016-09-13 08:29] LABS: CH 31.7; CHCM 33.8; HCT 45.2 % (39.0-53.0); MCH 31.2 pg (25.0-35.0); MCHC 33.1 g/dL (31.0-37.0); MCV 94.2 fL (80.0-100.0); Mean Platelet Volume 6.4; RDW 13.1 % (11.5-15.5)
[2016-09-13 08:37] LABS: INR 3.3 (<1.2); Prothrombin Time 32.1 sec (9.0-12.0)
[2016-09-13 08:41] LABS: ALT 86 U/L (21-72); AST 57 U/L (17-59); Alkaline Phosphatase 96 U/L (38-126); Anion Gap 11 mmol/L; Blood Urea Nitrogen 22 mg/dL (9-20); Calcium 8.2 mg/dL (8.4-10.2); Carbon Dioxide 24 mmol/L (22-30); Chloride 106 mmol/L (98-107); Glucose 98 mg/dL (74-99); Non-African American GFR(MDRD) >60 (>60 ml/min/1.73 sqM); Sodium 141 mmol/L (137-145); Total Bilirubin 1.5 mg/dL (0.2-1.3); Total Protein 6.2 g/dL (6.3-8.2)
[2016-09-13 09:38] LABS: Bilirubin, Delta 0.8 mg/dL (0.0-0.2)
[2016-09-13] MEDS ORDERED: RX INFO: IV CONTRAST WAS GIVEN 1 EACH MISC MISCELLANE PRN (10:58)
[2016-09-13] MEDS ORDERED: DOCUSATE 283 MG/5 ML ENEMA RECTAL PRN (11:02)
[2016-09-13] MEDS ORDERED: BISACODYL 10 MG SUPP RECTAL STA (11:04)
[2016-09-13] MEDS: IOHEXOL 350 MG/ML 25 ML BOTTLE (ORAL USE) PO PRN ×2 (11:18→12:18)
--- NOTE | 2016-09-13 11:36 | P.PN ---
Subjective Patient is a 56-year-old morbidly morbidly obese white male who presented to the emergency room with a complaint of midepigastric abdominal discomfort. He was noted to have gallstone pancreatitis. The patient was complaining this morning of increased abdominal discomfort in the lower abdomen. The midepigastric pain does not seem to have changed. The patient's white blood cell count is noted to be increased to 20,000. Patient's lipase remains elevated at 838. His AST is 57 a LT 86 total bili is 1.5 which is increased from yesterday at 1. Objective - Vital Signs Vital signs: Vital Signs Temp 98.3 F 09/13/16 07:00 Pulse 86 09/13/16 07:00 Resp 16 09/13/16 07:00 BP 160/81 09/13/16 07:00 Pulse Ox 95 09/13/16 07:00 Intake & Output 09/12/16 09/13/16 09/13/16 18:59 06:59 18:59 Intake Total 800 1050 Balance 800 1050 Intake: Intake, IV Titration 800 1050 Amount Sodium Chloride 0.9% 1, 800 1050 000 ml @ 100 mls/hr IV . Q10H [facility] Rx#:[id number] Other: Voiding Method Toilet Toilet Toilet # Voids 2 1 - Constitutional General appearance: Present: morbidly obese - Respiratory Respiratory: bilateral: diminished - Cardiovascular Rhythm: regular Heart sounds: normal: S1, S2 - Gastrointestinal Gastrointestinal Comment(s): Tender to palpation lower abdomen right and left sides, no guarding or rebound General gastrointestinal: Present: normal bowel sounds, soft - Psychiatric Psychiatric: Present: A&O x's 3, appropriate affect, intact judgment & insight - Labs CBC & Chem 7: 09/13/16 08:02 09/13/16 08:02 Labs: Abnormal Lab Results - Last 24 Hours (Table) 09/13/16 09/13/16 09/13/16 Range/Units 08:02 08:02 08:02 WBC 20.0 H (3.8-10.6) k/uL PT 32.1 H (9.0-12.0) sec INR 3.3 H (<1.2) BUN 22 H (9-20) mg/dL Calcium 8.2 L (8.4-10.2) mg/dL Total Bilirubin 1.5 H (0.2-1.3) mg/dL Delta Bilirubin 0.8 H (0.0-0.2) mg/dL ALT 86 H (21-72) U/L Total Protein 6.2 L (6.3-8.2) g/dL Lipase 838 H (23-300) U/L Assessment and Plan Plan: Impression/plan: 1. 56-year-old white male morbid obesity 2. Gallstone pancreatitis 3. Osteoarthritis with back pain 4. Prior history of DVT 5. Increased white blood cell count, complaining of bilateral lower quadrant abdominal discomfort Plan: 1. Admission and IV hydration 2. GI consult 3. Medical management 4. Repeat LFTs lipase and amylase in a.m. 5. Recommend DVT prophylaxis 6. ID consult 7. consider starting Zosyn if ok with ID 8. CT scan secondary to new onset lower abd pain
--- NOTE | 2016-09-13 13:49 | CT ---
EXAMINATION TYPE: CT abdomen pelvis w con DATE OF EXAM: 09/13/2016 COMPARISON: NONE HISTORY: Abdominal pain, history of pancreatitis CT DLP: 4265.9 mGycm Automated exposure control for dose reduction was used. TECHNIQUE: Helical acquisition of images was performed from the lung bases through the pelvis. CONTRAST: Performed with Oral Contrast and with IV Contrast, patient injected with 100 mL of Omnipaque 300. FINDINGS: There are small bilateral pleural effusions. There is some nodular infiltrate at the left posterior l pancho base. Liver and spleen appear normal. Bile ducts are not dilated. There are multiple small calcified gallst ones. There is some stranding around the pancreas. There is fluid in the anterior pararenal space on the le ft side and to a lesser extent the right side. There is no evidence of a bowel obstruction. There is no sign of appendicitis. There is no retroperit ulloa adenopathy. There is no adrenal mass. Kidneys show satisfactory contrast opacification. There is no hydronephrosi s. Bladder distends smoothly. There is a small amount of free fluid in the pelvis. There is multileve l spondylosis in the mid and lower lumbar spine. There is bony spinal stenosis at L3-4 L4-5. IMPRESSION: CALCIFIED GALLSTONES. NO DILATED DUCTS. FLUID AND FAT STRANDING AROUND THE PANCREAS CONSISTENT WITH P ANCREATITIS. MILD ASCITES FLUID IN THE PELVIS. SMALL PLEURAL EFFUSIONS WITH NODULAR INFILTRATE IN THE LEFT LOWER LOBE IN THE POSTERIOR BASAL SEGMENT .
[2016-09-13] MEDS: PIPERACILLIN-TAZOBACTAM 3.375 GM in DEXTROSE/WATER 1 50ML.BAG IVPB SCH ×2 (15:33→23:50)
--- NOTE | 2016-09-13 15:59 | P.PN ---
Subjective Patient was admitted for gall stone pancreatitis. His symptoms of epigastric abdominal pain improved, lipase improved and liver enzymes improved. Patient will remain nothing by mouth today. Patient is coming of constipation and patient does have some intertrigo and patient was started on nystatin topical. 09/13/2016 Patient's pancreatitis appears to have been improving patient will be started on clear liquid diet although patient had leukocytosis because of which patient was started on Zosyn for surgery will discuss his surgery and discontinue antibiotic tomorrow. Patient had a CT of the abdomen because of his continued severe abdominal pain which did not show any significant amount abnormality except for gallstone and pancreatitis along with some ascites in the abdomen along with bilateral pleural effusions because of which IV fluids were discontinued and patient was started on clear liquid diet today. INR is 3.3 commuter hold on Coumadin. Subcutaneous heparin will be discontinued REVIEW OF SYSTEMS: CARDIOVASCULAR: No chest pain, no orthopnea, no PND, no palpitations. PULMONARY: Denied any shortness of breath. No cough or hemoptysis. GASTROINTESTINAL: As described in HPI NEUROLOGIC: No headaches, no weakness, no numbness. Objective - Vital Signs Vital signs: Vital Signs Temp 99.4 F 09/13/16 13:52 Pulse 81 09/13/16 13:52 Resp 16 09/13/16 13:52 BP 166/88 09/13/16 13:52 Pulse Ox 94 L 09/13/16 13:52 Intake & Output 09/12/16 09/13/16 09/13/16 18:59 06:59 18:59 Intake Total 800 1050 Balance 800 1050 Intake: Intake, IV Titration 800 1050 Amount Sodium Chloride 0.9% 1, 800 1050 000 ml @ 100 mls/hr IV . Q10H [facility] Rx#:[id number] Other: Voiding Method Toilet Toilet Toilet # Voids 2 1 - Exam GENERAL: The patient is alert and oriented x3, not in any acute distress. Well developed, well nourished. HEENT: Pupils are round and equally reacting to light. EOMI. No scleral icterus. No conjunctival pallor. Normocephalic, atraumatic. No pharyngeal erythema. No thyromegaly. CARDIOVASCULAR: S1 and S2 present. No murmurs, rubs, or gallops. PULMONARY: Chest is clear to auscultation, no wheezing or crackles. ABDOMEN: Soft, tenderness in the left upper quadrant area, morbidly obese belly. No rebound or rigidity. Bowel sounds are present. MUSCULOSKELETAL: No joint swelling or deformity. EXTREMITIES: No cyanosis, clubbing, or pedal edema. NEUROLOGICAL: Gross neurological examination did not reveal any focal deficits. SKIN: No rashes. - Labs CBC & Chem 7: 09/13/16 08:02 09/13/16 08:02 Labs: Abnormal Lab Results - Last 24 Hours (Table) 09/13/16 09/13/16 09/13/16 Range/Units 08:02 08:02 08:02 WBC 20.0 H (3.8-10.6) k/uL PT 32.1 H (9.0-12.0) sec INR 3.3 H (<1.2) BUN 22 H (9-20) mg/dL Calcium 8.2 L (8.4-10.2) mg/dL Total Bilirubin 1.5 H (0.2-1.3) mg/dL Delta Bilirubin 0.8 H (0.0-0.2) mg/dL ALT 86 H (21-72) U/L Total Protein 6.2 L (6.3-8.2) g/dL Lipase 838 H (23-300) U/L Assessment and Plan Plan: #1 gallstone Pancreatitis: Intravenous fluids of dyspnea and patient was started on clear liquid diet Surgery was consulted. Opiate in ano. An analgesia for pain today patient will remain nothing by mouth. Reviewed CAT scan of the abdomen and pelvis 2 elevated liver enzymes due to cholelithiasis possible choledocholithiasis for which gastro-oncology was consulted. 3 morbid obesity: Patient apparently lost 60 pounds of weight and still trying to lose weight. Patient will benefit from sleep apnea evaluation. #4 hypertension: Hydrochlorothiazide is being held and patient blood pressures but elevated today. 5 DVT in the past on Coumadin, INR is subtherapeutic will continue to hold and repeat INR tomorrow #6 as well without any acute exacerbation. 7constipation will use rectal suppository.
[2016-09-13] MEDS ORDERED: WARFARIN 5 MG TAB PO SCH (18:00)
[2016-09-13] MEDS: NYSTATIN 100,000UNIT/GM CREAM 30 GM TUBE TOPICAL SCH (20:05)
[2016-09-14] MEDS: ONDANSETRON 4 MG/2 ML VIAL IVP PRN (00:02)
[2016-09-14] MEDS: HYDROmorphone 2 MG/ML 1 ML SYRINGE IVP PRN ×10 (00:24→22:38)
[2016-09-14] MEDS: KETOROLAC 30 MG/ML 1 ML VIAL IVP PRN ×3 (05:59→21:14)
[2016-09-14 06:44] LABS: Basophils % (A) 0 %; CH 31.5; CHCM 33.8; Eosinophils # (A) 0.2 k/uL (0-0.7); Eosinophils % (A) 1 %; HCT 43.6 % (39.0-53.0); HDW 2.46; HGB 14.4 gm/dL (13.0-17.5); Luc # (Auto) 0.17; Luc % (Auto) 1; Lymphocytes # (A) 0.7 k/uL (1.0-4.8); Lymphocytes % (A) 4 %; MCHC 33.1 g/dL (31.0-37.0); MCV 93.6 fL (80.0-100.0); Mean Platelet Volume 6.6; Monocytes # (A) 0.7 k/uL (0-1.0); Monocytes % (A) 4 %; Neutrophils # (A) 15.6 k/uL (1.3-7.7); Neutrophils % (A) 90 %; RBC 4.66 m/uL (4.30-5.90); RDW 12.9 % (11.5-15.5); WBC 17.3 k/uL (3.8-10.6); WBC (Perox) 16.77
[2016-09-14 07:01] LABS: INR 2.6 (<1.2); Prothrombin Time 24.7 sec (9.0-12.0)
[2016-09-14 07:14] LABS: Anion Gap 8 mmol/L; Blood Urea Nitrogen 20 mg/dL (9-20); Calcium 8.1 mg/dL (8.4-10.2); Carbon Dioxide 26 mmol/L (22-30); Chloride 105 mmol/L (98-107); Glucose 90 mg/dL (74-99); Non-African American GFR(MDRD) >60 (>60 ml/min/1.73 sqM); Potassium 3.9 mmol/L (3.5-5.1); Sodium 139 mmol/L (137-145)
--- NOTE | 2016-09-14 08:29 | P.PN ---
Subjective Patient is a 56-year-old morbidly morbidly obese white male who presented to the emergency room with a complaint of midepigastric abdominal discomfort. He was noted to have gallstone pancreatitis. The patient underwent a CAT scan yesterday which revealed calcified gallstones no dilated ducts fluid and stranding around the pancreas consistent with pancreatitis mild ascites fluid in the pelvis, small pleural effusions with nodular infiltrate in the left lower lobe in the posterior basal segment. The patient was complaining yesterday morning of increased abdominal discomfort in the lower abdomen. This morning the pain appears to be improved. The patient had dense started on clear liquids which she is tolerating. The patient's INR was noted to be 3.3 and today is down to 2.6. The patient's white blood cell count is decreased from 20,000 to 17.3. Objective - Vital Signs Vital signs: Vital Signs Temp 97.5 F L 09/14/16 02:05 Pulse 84 09/14/16 02:05 Resp 16 09/14/16 02:05 BP 177/80 09/14/16 02:05 Pulse Ox 94 L 09/14/16 02:05 Intake & Output 09/13/16 09/14/16 09/14/16 18:59 06:59 18:59 Intake Total 500 Balance 500 Intake: Intake, IV Titration 500 Amount Piperacillin-Tazobactam 3 100 .375 gm In Dextrose/Water 1 50ml.bag @ 12.5 mls/hr IVPB Q8HR [facility] Rx#: [id number] Sodium Chloride 0.9% 1, 400 000 ml @ 100 mls/hr IV . Q10H [facility] Rx#:[id number] Other: Voiding Method Toilet # Voids 3 - Constitutional General appearance: Present: morbidly obese - Respiratory Details: Decreased breath sounds at the bases - Cardiovascular Rhythm: regular Heart sounds: normal: S1, S2 - Gastrointestinal Gastrointestinal Comment(s): No guarding or rebound General gastrointestinal: Present: decreased bowel sounds, soft - Psychiatric Psychiatric: Present: A&O x's 3, appropriate affect, intact judgment & insight - Labs CBC & Chem 7: 09/14/16 06:27 09/14/16 06:27 Labs: Abnormal Lab Results - Last 24 Hours (Table) 09/13/16 09/13/16 09/13/16 Range/Units 08:02 08:02 08:02 WBC 20.0 H (3.8-10.6) k/uL Neutrophils # (1.3-7.7) k/uL Lymphocytes # (1.0-4.8) k/uL PT 32.1 H (9.0-12.0) sec INR 3.3 H (<1.2) BUN 22 H (9-20) mg/dL Calcium 8.2 L (8.4-10.2) mg/dL Total Bilirubin 1.5 H (0.2-1.3) mg/dL Delta Bilirubin 0.8 H (0.0-0.2) mg/dL ALT 86 H (21-72) U/L Total Protein 6.2 L (6.3-8.2) g/dL Lipase 838 H (23-300) U/L 09/14/16 09/14/16 09/14/16 Range/Units 06:27 06:27 06:27 WBC 17.3 H (3.8-10.6) k/uL Neutrophils # 15.6 H (1.3-7.7) k/uL Lymphocytes # 0.7 L (1.0-4.8) k/uL PT 24.7 H (9.0-12.0) sec INR 2.6 H (<1.2) BUN (9-20) mg/dL Calcium 8.1 L (8.4-10.2) mg/dL Total Bilirubin (0.2-1.3) mg/dL Delta Bilirubin (0.0-0.2) mg/dL ALT (21-72) U/L Total Protein (6.3-8.2) g/dL Lipase (23-300) U/L Assessment and Plan Plan: Impression/plan: 1. 56-year-old white male morbid obesity 2. Gallstone pancreatitis/ resolving 3. Osteoarthritis with back pain 4. Prior history of DVT 5. Decreased leukocytosis, computed tomography scan reviewed Plan: 1. Patient has been started on clear liquids 2. Elevated INR 3. Probable medical optimization and elective cholecystectomy with a normalized INR
[2016-09-14] MEDS: SODIUM CHLORIDE 0.9% 1,000 ML IV SCH ×3 (09:24→17:00)
[2016-09-14] MEDS: PANTOPRAZOLE 40 MG/10 ML VIAL IVP SCH (09:32)
[2016-09-14] MEDS: NYSTATIN 100,000UNIT/GM CREAM 30 GM TUBE TOPICAL SCH ×2 (09:34→21:14)
[2016-09-14] MEDS: PIPERACILLIN-TAZOBACTAM 3.375 GM in DEXTROSE/WATER 1 50ML.BAG IVPB SCH ×2 (09:36→16:58)
[2016-09-14] MEDS ORDERED: BISACODYL 10 MG SUPP RECTAL STA (09:56)
--- NOTE | 2016-09-14 14:53 | P.PN ---
Subjective Patient was admitted for gall stone pancreatitis. His symptoms of epigastric abdominal pain improved, lipase improved and liver enzymes improved. Patient will remain nothing by mouth today. Patient is coming of constipation and patient does have some intertrigo and patient was started on nystatin topical. 09/13/2016 Patient's pancreatitis appears to have been improving patient will be started on clear liquid diet although patient had leukocytosis because of which patient was started on Zosyn for surgery will discuss his surgery and discontinue antibiotic tomorrow. Patient had a CT of the abdomen because of his continued severe abdominal pain which did not show any significant amount abnormality except for gallstone and pancreatitis along with some ascites in the abdomen along with bilateral pleural effusions because of which IV fluids were discontinued and patient was started on clear liquid diet today. INR is 3.3 commuter hold on Coumadin. Subcutaneous heparin will be discontinued 09/14/2016 This is that is being advanced, patient and he is to have abdominal pain in the lower abdominal quadrants. REVIEW OF SYSTEMS: CARDIOVASCULAR: No chest pain, no orthopnea, no PND, no palpitations. PULMONARY: Denied any shortness of breath. No cough or hemoptysis. GASTROINTESTINAL: As described in HPI NEUROLOGIC: No headaches, no weakness, no numbness. Objective - Vital Signs Vital signs: Vital Signs Temp 98.1 F 09/14/16 07:00 Pulse 84 09/14/16 07:00 Resp 18 09/14/16 07:00 BP 156/90 09/14/16 07:00 Pulse Ox 95 09/14/16 07:00 Intake & Output 09/13/16 09/14/16 09/14/16 18:59 06:59 18:59 Intake Total 500 1000 Balance 500 1000 Intake: Intake, IV Titration 500 800 Amount Piperacillin-Tazobactam 3 100 50 .375 gm In Dextrose/Water 1 50ml.bag @ 12.5 mls/hr IVPB Q8HR [facility] Rx#: [id number] Sodium Chloride 0.9% 1, 400 750 000 ml @ 100 mls/hr IV . Q10H [facility] Rx#:[id number] Oral 200 Other: Voiding Method Toilet # Voids 3 - Exam GENERAL: The patient is alert and oriented x3, not in any acute distress. Well developed, well nourished. HEENT: Pupils are round and equally reacting to light. EOMI. No scleral icterus. No conjunctival pallor. Normocephalic, atraumatic. No pharyngeal erythema. No thyromegaly. CARDIOVASCULAR: S1 and S2 present. No murmurs, rubs, or gallops. PULMONARY: Chest is clear to auscultation, no wheezing or crackles. ABDOMEN: Soft, tenderness in the left upper quadrant area, morbidly obese belly. No rebound or rigidity. Bowel sounds are present. MUSCULOSKELETAL: No joint swelling or deformity. EXTREMITIES: No cyanosis, clubbing, or pedal edema. NEUROLOGICAL: Gross neurological examination did not reveal any focal deficits. SKIN: No rashes. - Labs CBC & Chem 7: 09/14/16 06:27 09/14/16 06:27 Labs: Abnormal Lab Results - Last 24 Hours (Table) 09/14/16 09/14/16 09/14/16 Range/Units 06:27 06:27 06:27 WBC 17.3 H (3.8-10.6) k/uL Neutrophils # 15.6 H (1.3-7.7) k/uL Lymphocytes # 0.7 L (1.0-4.8) k/uL PT 24.7 H (9.0-12.0) sec INR 2.6 H (<1.2) Calcium 8.1 L (8.4-10.2) mg/dL Assessment and Plan Plan: #1 gallstone Pancreatitis: Intravenous fluids and patient was started on clear liquid diet Reviewed CAT scan of the abdomen and pelvis. Plan is to to wait for the symptomatically improvement he patient has some medical improvement patient will be discharged home with soft diet and patient will come back for cholecystectomy. If pain in the right upper quadrant worsens with food patient may need surgery before his discharge. 2 elevated liver enzymes due to cholelithiasis possible choledocholithiasis for which gastro-oncology evaluated the patient. 3 morbid obesity: Patient apparently lost 60 pounds of weight and still trying to lose weight. Patient will benefit from sleep apnea evaluation. #4 hypertension: Hydrochlorothiazide is being held and patient blood pressures but elevated today. 5 DVT in the past on Coumadin, INR is subtherapeutic will continue to hold and repeat INR tomorrow #6 as well without any acute exacerbation. 7constipation will use rectal suppository.
[2016-09-14 17:42] LABS: Appearance,Urine Clear (Clear); Bacteria,Urine Occasional /hpf; Bilirubin,Urine Negative (Negative); Glucose,Urine (UA) Negative (Negative); Ketones,Urine 1+ (Negative); Leukocyte Esterase,Urine Negative (Negative); Nitrite,Urine Negative (Negative); Particle Count 4009; Protein,Urine 1+ (Negative); RBC,Urine 29 /hpf (0-5); Specific Gravity,Urine 1.018 (1.001-1.035); UA Billing (MACRO vs. MICRO) MICRO; Urobilinogen,Urine <2.0 mg/dL (<2.0); WBC,Urine 4 /hpf (0-5)
[2016-09-14] MEDS: CYCLOBENZAPRINE 10 MG TAB PO PRN (19:50)
[2016-09-14] MEDS: ESOMEPRAZOLE 40 MG in SODIUM CHLORIDE 0.9% 50 ML IVPB SCH (21:15)
[2016-09-15] MEDS: HYDROmorphone 2 MG/ML 1 ML SYRINGE IVP PRN ×9 (00:42→23:30)
[2016-09-15] MEDS: PIPERACILLIN-TAZOBACTAM 3.375 GM in DEXTROSE/WATER 1 50ML.BAG IVPB SCH ×4 (00:43→23:30)
[2016-09-15] MEDS: KETOROLAC 30 MG/ML 1 ML VIAL IVP PRN ×3 (02:48→16:15)
[2016-09-15] MEDS: CYCLOBENZAPRINE 10 MG TAB PO PRN ×2 (03:52→12:53)
[2016-09-15 07:45] LABS: INR 2.2 (<1.2); Prothrombin Time 21.4 sec (9.0-12.0)
[2016-09-15] MEDS: NYSTATIN 100,000UNIT/GM CREAM 30 GM TUBE TOPICAL SCH ×2 (08:31→21:16)
[2016-09-15 08:44] LABS: Anion Gap 8 mmol/L; Blood Urea Nitrogen 19 mg/dL (9-20); Calcium 8.1 mg/dL (8.4-10.2); Carbon Dioxide 26 mmol/L (22-30); Chloride 106 mmol/L (98-107); Glucose 71 mg/dL (74-99); Non-African American GFR(MDRD) >60 (>60 ml/min/1.73 sqM); Potassium 3.7 mmol/L (3.5-5.1); Sodium 140 mmol/L (137-145)
[2016-09-15 11:41] VITALS: BMI 47.5
--- NOTE | 2016-09-15 12:38 | P.PN ---
Subjective Patient was admitted for gall stone pancreatitis. His symptoms of epigastric abdominal pain improved, lipase improved and liver enzymes improved. Patient will remain nothing by mouth today. Patient is coming of constipation and patient does have some intertrigo and patient was started on nystatin topical. 09/13/2016 Patient's pancreatitis appears to have been improving patient will be started on clear liquid diet although patient had leukocytosis because of which patient was started on Zosyn for surgery will discuss his surgery and discontinue antibiotic tomorrow. Patient had a CT of the abdomen because of his continued severe abdominal pain which did not show any significant amount abnormality except for gallstone and pancreatitis along with some ascites in the abdomen along with bilateral pleural effusions because of which IV fluids were discontinued and patient was started on clear liquid diet today. INR is 3.3 commuter hold on Coumadin. Subcutaneous heparin will be discontinued 09/14/2016 This is that is being advanced, patient and he is to have abdominal pain in the lower abdominal quadrants. 09/15/2016 Abdominal pain significantly improved, was still having right upper quadrant abdominal pain whenever he tries to eat. Patient will restart back on clear liquid diet, will discuss with surgery. Lipase has come down REVIEW OF SYSTEMS: CARDIOVASCULAR: No chest pain, no orthopnea, no PND, no palpitations. PULMONARY: Denied any shortness of breath. No cough or hemoptysis. GASTROINTESTINAL: As described in HPI NEUROLOGIC: No headaches, no weakness, no numbness. Objective - Vital Signs Vital signs: Vital Signs Temp 97.9 F 09/15/16 08:21 Pulse 81 09/15/16 08:21 Resp 18 09/15/16 08:21 BP 155/84 09/15/16 08:21 Pulse Ox 97 09/15/16 08:21 Intake & Output 09/14/16 09/15/16 09/15/16 18:59 06:59 18:59 Intake Total 1000 1350 Output Total 400 Balance 1000 950 Weight 172.365 kg Intake: Intake, IV Titration 800 1150 Amount Esomeprazole 40 mg In 50 Sodium Chloride 0.9% 50 ml @ 100 mls/hr IVPB HS [facility] Rx#:[id number] Piperacillin-Tazobactam 3 50 .375 gm In Dextrose/Water 1 50ml.bag @ 12.5 mls/hr IVPB Q8HR [facility] Rx#: [id number] Sodium Chloride 0.9% 1, 750 1100 000 ml @ 100 mls/hr IV . Q10H [facility] Rx#:[id number] Oral 200 200 Output: Urine 400 Other: Voiding Method Toilet # Voids 1 - Exam GENERAL: The patient is alert and oriented x3, not in any acute distress. Well developed, well nourished. HEENT: Pupils are round and equally reacting to light. EOMI. No scleral icterus. No conjunctival pallor. Normocephalic, atraumatic. No pharyngeal erythema. No thyromegaly. CARDIOVASCULAR: S1 and S2 present. No murmurs, rubs, or gallops. PULMONARY: Chest is clear to auscultation, no wheezing or crackles. ABDOMEN: Soft, tenderness in the left upper quadrant area, morbidly obese belly. No rebound or rigidity. Bowel sounds are present. MUSCULOSKELETAL: No joint swelling or deformity. EXTREMITIES: No cyanosis, clubbing, or pedal edema. NEUROLOGICAL: Gross neurological examination did not reveal any focal deficits. SKIN: No rashes. - Labs CBC & Chem 7: 09/14/16 06:27 09/15/16 06:54 Labs: Abnormal Lab Results - Last 24 Hours (Table) 09/14/16 09/15/16 09/15/16 Range/Units 15:45 06:54 06:54 PT 21.4 H (9.0-12.0) sec INR 2.2 H (<1.2) Glucose 71 L (74-99) mg/dL Calcium 8.1 L (8.4-10.2) mg/dL Urine Protein 1+ H (Negative) Urine Ketones 1+ H (Negative) Urine Blood Moderate H (Negative) Urine RBC 29 H (0-5) /hpf Urine Bacteria Occasional H (None) /hpf Microbiology - Last 24 Hours (Table) 09/14/16 15:45 Urine Culture - Preliminary Urine,Voided Assessment and Plan Plan: #1 gallstone Pancreatitis: Intravenous fluids and patient was started on clear liquid diet Reviewed CAT scan of the abdomen and pelvis. Bladder as a diet as tolerated cholecystectomy. If pain in the right upper quadrant worsens with food patient may need surgery before his discharge. 2 elevated liver enzymes due to cholelithiasis possible choledocholithiasis for which gastro-enterology evaluated the patient. Her enzymes have come down to normal 3 morbid obesity: Patient apparently lost 60 pounds of weight and still trying to lose weight. Patient will benefit from sleep apnea evaluation. #4 hypertension: Hydrochlorothiazide is being held and patient blood pressures but elevated today. 5 DVT in the past on Coumadin, INR is subtherapeutic will continue to hold and repeat INR tomorrow #6 as well without any acute exacerbation. 7constipation will use rectal suppository.
--- NOTE | 2016-09-15 13:52 | P.PN ---
Subjective Patient is a 56-year-old morbidly morbidly obese white male who presented to the emergency room with a complaint of midepigastric abdominal discomfort. He was noted to have gallstone pancreatitis. The patient underwent a CAT scan which revealed calcified gallstones no dilated ducts fluid and stranding around the pancreas consistent with pancreatitis mild ascites fluid in the pelvis, small pleural effusions with nodular infiltrate in the left lower lobe in the posterior basal segment. The patient was complaining yesterday morning of increased abdominal discomfort in the lower abdomen. This morning the pain appears to be improved. The patient is feeling better today. He states that he would like his gallbladder removed during this admission. Objective - Vital Signs Vital signs: Vital Signs Temp 97.9 F 09/15/16 08:21 Pulse 81 09/15/16 08:21 Resp 18 09/15/16 08:21 BP 155/84 09/15/16 08:21 Pulse Ox 97 09/15/16 08:21 Intake & Output 09/14/16 09/15/16 09/15/16 18:59 06:59 18:59 Intake Total 1000 1350 Output Total 400 Balance 1000 950 Weight 172.365 kg Intake: Intake, IV Titration 800 1150 Amount Esomeprazole 40 mg In 50 Sodium Chloride 0.9% 50 ml @ 100 mls/hr IVPB HS [facility] Rx#:[id number] Piperacillin-Tazobactam 3 50 .375 gm In Dextrose/Water 1 50ml.bag @ 12.5 mls/hr IVPB Q8HR [facility] Rx#: [id number] Sodium Chloride 0.9% 1, 750 1100 000 ml @ 100 mls/hr IV . Q10H [facility] Rx#:[id number] Oral 200 200 Output: Urine 400 Other: Voiding Method Toilet # Voids 1 - Constitutional General appearance: Present: morbidly obese - Respiratory Respiratory: bilateral: diminished - Cardiovascular Rhythm: regular Heart sounds: normal: S1, S2 - Gastrointestinal Gastrointestinal Comment(s): No guarding or rebound General gastrointestinal: Present: decreased bowel sounds, soft - Psychiatric Psychiatric: Present: A&O x's 3, appropriate affect, intact judgment & insight - Labs CBC & Chem 7: 09/14/16 06:27 09/15/16 06:54 Labs: Abnormal Lab Results - Last 24 Hours (Table) 09/14/16 09/15/16 09/15/16 Range/Units 15:45 06:54 06:54 PT 21.4 H (9.0-12.0) sec INR 2.2 H (<1.2) Glucose 71 L (74-99) mg/dL Calcium 8.1 L (8.4-10.2) mg/dL Urine Protein 1+ H (Negative) Urine Ketones 1+ H (Negative) Urine Blood Moderate H (Negative) Urine RBC 29 H (0-5) /hpf Urine Bacteria Occasional H (None) /hpf Microbiology - Last 24 Hours (Table) 09/14/16 15:45 Urine Culture - Preliminary Urine,Voided Assessment and Plan Plan: Impression/plan: 1. 56-year-old white male morbid obesity 2. Gallstone pancreatitis/ resolving 3. Osteoarthritis with back pain 4. Prior history of DVT 5. Decreased leukocytosis, computed tomography scan reviewed Plan: 1. Patient has been started on clear liquids 2. Elevated INR 3. Probable medical optimization and elective cholecystectomy with a normalized INR
[2016-09-15] MEDS: SODIUM CHLORIDE 0.9% 1,000 ML IV SCH ×2 (17:42→20:15)
[2016-09-15] MEDS: ACETAMINOPHEN TAB 500 MG TAB PO PRN (21:10)
[2016-09-15] MEDS: ESOMEPRAZOLE 40 MG in SODIUM CHLORIDE 0.9% 50 ML IVPB SCH (21:54)
[2016-09-16] MEDS: CYCLOBENZAPRINE 10 MG TAB PO PRN ×2 (00:31→10:47)
[2016-09-16] MEDS: ACETAMINOPHEN TAB 500 MG TAB PO PRN ×4 (01:30→17:04)
[2016-09-16] MEDS: KETOROLAC 30 MG/ML 1 ML VIAL IVP PRN ×2 (02:35→10:35)
[2016-09-16] MEDS: HYDROmorphone 2 MG/ML 1 ML SYRINGE IVP PRN ×3 (04:54→15:18)
[2016-09-16] MEDS: SODIUM CHLORIDE 0.9% 1,000 ML IV SCH (06:01)
[2016-09-16 07:09] LABS: CH 31.6; CHCM 33.7; HCT 42.7 % (39.0-53.0); HDW 2.59; HGB 13.8 gm/dL (13.0-17.5); MCH 30.4 pg (25.0-35.0); MCHC 32.4 g/dL (31.0-37.0); Mean Platelet Volume 6.7; RBC 4.54 m/uL (4.30-5.90); RDW 12.9 % (11.5-15.5); WBC 12.7 k/uL (3.8-10.6)
[2016-09-16 07:15] LABS: INR 2.4 (<1.2); Prothrombin Time 23.1 sec (9.0-12.0)
[2016-09-16 07:27] LABS: Anion Gap 9 mmol/L; Blood Urea Nitrogen 15 mg/dL (9-20); Calcium 8.2 mg/dL (8.4-10.2); Carbon Dioxide 23 mmol/L (22-30); Chloride 106 mmol/L (98-107); Glucose 82 mg/dL (74-99); Non-African American GFR(MDRD) >60 (>60 ml/min/1.73 sqM); Potassium 3.5 mmol/L (3.5-5.1); Sodium 138 mmol/L (137-145)
[2016-09-16] MEDS: NYSTATIN 100,000UNIT/GM CREAM 30 GM TUBE TOPICAL SCH ×2 (10:27→20:57)
[2016-09-16] MEDS: PIPERACILLIN-TAZOBACTAM 3.375 GM in DEXTROSE/WATER 1 50ML.BAG IVPB SCH (10:27)
[2016-09-16] MEDS: GABAPENTIN 300 MG CAP PO SCH ×2 (16:59→21:17)
[2016-09-16] MEDS: oxyCODONE-APAP 10-325MG 1 EACH TAB PO PRN ×2 (16:59→21:23)
--- NOTE | 2016-09-16 17:08 | P.PN ---
Subjective Patient was admitted for gall stone pancreatitis. His symptoms of epigastric abdominal pain improved, lipase improved and liver enzymes improved. Patient will remain nothing by mouth today. Patient is coming of constipation and patient does have some intertrigo and patient was started on nystatin topical. 09/13/2016 Patient's pancreatitis appears to have been improving patient will be started on clear liquid diet although patient had leukocytosis because of which patient was started on Zosyn for surgery will discuss his surgery and discontinue antibiotic tomorrow. Patient had a CT of the abdomen because of his continued severe abdominal pain which did not show any significant amount abnormality except for gallstone and pancreatitis along with some ascites in the abdomen along with bilateral pleural effusions because of which IV fluids were discontinued and patient was started on clear liquid diet today. INR is 3.3 commuter hold on Coumadin. Subcutaneous heparin will be discontinued 09/14/2016 This is that is being advanced, patient and he is to have abdominal pain in the lower abdominal quadrants. 09/15/2016 Abdominal pain significantly improved, was still having right upper quadrant abdominal pain whenever he tries to eat. Patient will restart back on clear liquid diet, will discuss with surgery. Lipase has come down 09/16/2016 Patient side is being advanced today. Most probably patient will be discharged tomorrow, IV fluids, IV antibiotics were discontinued. REVIEW OF SYSTEMS: CARDIOVASCULAR: No chest pain, no orthopnea, no PND, no palpitations. PULMONARY: Denied any shortness of breath. No cough or hemoptysis. GASTROINTESTINAL: As described in HPI NEUROLOGIC: No headaches, no weakness, no numbness. Objective - Vital Signs Vital signs: Vital Signs Temp 98.7 F 09/16/16 07:00 Pulse 80 09/16/16 07:00 Resp 16 09/16/16 07:00 BP 194/88 09/16/16 07:00 Pulse Ox 97 09/16/16 07:00 Intake & Output 09/15/16 09/16/16 09/16/16 18:59 06:59 18:59 Intake Total 700 240 Output Total 1050 Balance -350 240 Weight 172.365 kg Intake: Oral 700 240 Output: Urine 1050 Other: Voiding Method Toilet # Voids 3 - Exam GENERAL: The patient is alert and oriented x3, not in any acute distress. Well developed, well nourished. HEENT: Pupils are round and equally reacting to light. EOMI. No scleral icterus. No conjunctival pallor. Normocephalic, atraumatic. No pharyngeal erythema. No thyromegaly. CARDIOVASCULAR: S1 and S2 present. No murmurs, rubs, or gallops. PULMONARY: Chest is clear to auscultation, no wheezing or crackles. ABDOMEN: Soft, tenderness in the left upper quadrant area, morbidly obese belly. No rebound or rigidity. Bowel sounds are present. MUSCULOSKELETAL: No joint swelling or deformity. EXTREMITIES: No cyanosis, clubbing, or pedal edema. NEUROLOGICAL: Gross neurological examination did not reveal any focal deficits. SKIN: No rashes. - Labs CBC & Chem 7: 09/16/16 06:47 09/16/16 06:47 Labs: Abnormal Lab Results - Last 24 Hours (Table) 09/16/16 09/16/16 09/16/16 Range/Units 06:47 06:47 06:47 WBC 12.7 H (3.8-10.6) k/uL PT 23.1 H (9.0-12.0) sec INR 2.4 H (<1.2) Calcium 8.2 L (8.4-10.2) mg/dL Microbiology - Last 24 Hours (Table) 09/14/16 15:45 Urine Culture - Final Urine,Voided Assessment and Plan Plan: #1 gallstone Pancreatitis: Intravenous fluids and patient was started on full liquid diet. patient will be discharged tomorrow and will come back next week for cholecystectomy 2 elevated liver enzymes due to cholelithiasis possible choledocholithiasis for which gastro-enterology evaluated the patient. Her enzymes have come down to normal 3 morbid obesity: Patient apparently lost 60 pounds of weight and still trying to lose weight. Patient will benefit from sleep apnea evaluation. #4 hypertension: Hydrochlorothiazide is being held and patient blood pressures but elevated today. 5 DVT in the past on Coumadin, INR is subtherapeutic will continue to hold and repeat INR tomorrow #6 as well without any acute exacerbation.
[2016-09-16] MEDS: ESOMEPRAZOLE 40 MG in SODIUM CHLORIDE 0.9% 50 ML IVPB SCH (20:57)
[2016-09-17] MEDS: oxyCODONE-APAP 10-325MG 1 EACH TAB PO PRN ×2 (02:12→09:16)
[2016-09-17] MEDS: CYCLOBENZAPRINE 10 MG TAB PO PRN (03:17)
[2016-09-17 07:11] LABS: CH 30.7; CHCM 33.2; HCT 41.8 % (39.0-53.0); HDW 2.66; MCH 31.1 pg (25.0-35.0); MCHC 33.5 g/dL (31.0-37.0); MCV 92.9 fL (80.0-100.0); Mean Platelet Volume 6.9; RBC 4.49 m/uL (4.30-5.90); RDW 12.4 % (11.5-15.5); WBC 12.6 k/uL (3.8-10.6)
[2016-09-17 07:23] LABS: INR 2.1 (<1.2); Prothrombin Time 20.6 sec (9.0-12.0)
[2016-09-17 07:30] LABS: Anion Gap 10 mmol/L; Blood Urea Nitrogen 12 mg/dL (9-20); Calcium 8.5 mg/dL (8.4-10.2); Carbon Dioxide 24 mmol/L (22-30); Chloride 103 mmol/L (98-107); Glucose 95 mg/dL (74-99); Non-African American GFR(MDRD) >60 (>60 ml/min/1.73 sqM); Potassium 3.3 mmol/L (3.5-5.1); Sodium 137 mmol/L (137-145)
[2016-09-17] MEDS ORDERED: PANTOPRAZOLE 40 MG TABLET PO SCH (09:00)
[2016-09-17] MEDS: GABAPENTIN 300 MG CAP PO SCH (09:16)
[2016-09-17 11:34] VITALS: BP 186/86; PULSE 100; RESP 15; TEMP 97.6
--- NOTE | 2016-09-17 14:03 | P.DS ---
Providers Date of admission: 09/11/16 15:33 Attending physician: Hawa Rollins Consults: 09/11/16 15:43 Consult Physician Urgent Consulting Provider: Layla Santos Consult Reason/Comments: pancreatitis, cholelithiasis, possible cholecystitis Do you want consulting provider notified?: Already Contacted Primary care physician: Mervin Saul [facility] Course: Patient was admitted for gall stone pancreatitis. His symptoms of epigastric abdominal pain improved, lipase improved and liver enzymes improved. Patient will remain nothing by mouth today. Patient is coming of constipation and patient does have some intertrigo and patient was started on nystatin topical. 09/13/2016 Patient's pancreatitis appears to have been improving patient will be started on clear liquid diet although patient had leukocytosis because of which patient was started on Zosyn for surgery will discuss his surgery and discontinue antibiotic tomorrow. Patient had a CT of the abdomen because of his continued severe abdominal pain which did not show any significant amount abnormality except for gallstone and pancreatitis along with some ascites in the abdomen along with bilateral pleural effusions because of which IV fluids were discontinued and patient was started on clear liquid diet today. INR is 3.3 commuter hold on Coumadin. Subcutaneous heparin will be discontinued 09/14/2016 This is that is being advanced, patient and he is to have abdominal pain in the lower abdominal quadrants. 09/15/2016 Abdominal pain significantly improved, was still having right upper quadrant abdominal pain whenever he tries to eat. Patient will restart back on clear liquid diet, will discuss with surgery. Lipase has come down 09/16/2016 Patient side is being advanced today. Most probably patient will be discharged tomorrow, IV fluids, IV antibiotics were discontinued. 09/17/2016 Patient is feeling much better patient will be discharged today, patient will continue full liquid diet at home. Patient will come back next week for scheduled outpatient cholecystectomy. Until then patient will hold off on Coumadin. GENERAL: The patient is alert and oriented x3, not in any acute distress. Well developed, well nourished. HEENT: Pupils are round and equally reacting to light. EOMI. No scleral icterus. No conjunctival pallor. Normocephalic, atraumatic. No pharyngeal erythema. No thyromegaly. CARDIOVASCULAR: S1 and S2 present. No murmurs, rubs, or gallops. PULMONARY: Chest is clear to auscultation, no wheezing or crackles. ABDOMEN: Soft,non tenderness in the left upper quadrant area, morbidly obese belly. No rebound or rigidity. Bowel sounds are present. MUSCULOSKELETAL: No joint swelling or deformity. EXTREMITIES: No cyanosis, clubbing, or pedal edema. NEUROLOGICAL: Gross neurological examination did not reveal any focal deficits. #1 gallstone Pancreatitis: 2 elevated liver enzymes due to cholelithiasis . His enzymes have come down to normal 3 morbid obesity: Patient will benefit from sleep apnea evaluation. #4 hypertension: 5 DVT in the past on Coumadin, INR is subtherapeutic will continue to hold and repeat INR tomorrow #6 asthma without any acute exacerbation. Patient Condition at Discharge: Stable Plan - Discharge Summary New Discharge Prescriptions: Continue Cetirizine HCl [Zyrtec] 10 mg PO DAILY Gabapentin [Neurontin] 300 mg PO TID #90 cap Hydrochlorothiazide [Hydrodiuril] 25 mg PO DAILY Meloxicam [Mobic] 15 mg PO BID Ranitidine HCl 150 mg PO HS oxyCODONE-APAP 10-325MG [Percocet 10-325 mg] 1 tab PO Q4H PRN PRN Reason: Pain Changed Warfarin [Coumadin] 5 mg PO DAILY #0 Discontinued Warfarin [Coumadin] 7.5 mg PO DIRECTED Discharge Medication List Cetirizine HCl [Zyrtec] 10 mg PO DAILY 08/09/15 [History] Gabapentin [Neurontin] 300 mg PO TID #90 cap 10/30/15 [Rx] Hydrochlorothiazide [Hydrodiuril] 25 mg PO DAILY 09/11/16 [History] Meloxicam [Mobic] 15 mg PO BID 09/11/16 [History] Ranitidine HCl 150 mg PO HS 09/11/16 [History] oxyCODONE-APAP 10-325MG [Percocet 10-325 mg] 1 tab PO Q4H PRN 09/11/16 [History] Warfarin [Coumadin] 5 mg PO DAILY #0 09/17/16 [Rx] Follow up Appointment(s)/Referral(s): Mervin Coronado MD [Primary Care Provider] - 3 Days Discharge Disposition: HOME SELF-CARE
== END 2016-09-17 15:26 | disposition home or self-care (01) | DRG 439 ==
LOC: EC 11:43 → 3SUR 15:33
PROVIDERS: ADMIT Internal Medicine; ATTEND Internal Medicine
DX: K85.10 Biliary acute pancreatitis without necrosis or infection (principal); J90 Pleural effusion, not elsewhere classified; R18.8 Other ascites; E66.01 Morbid (severe) obesity due to excess calories; K80.20 Calculus of gallbladder without cholecystitis without obstruction; K59.00 Constipation, unspecified; I10 Essential (primary) hypertension; L30.4 Erythema intertrigo; K59.03 Drug induced constipation; T40.2X5A Adverse effect of other opioids, initial encounter; J44.9 Chronic obstructive pulmonary disease, unspecified; D72.829 Elevated white blood cell count, unspecified; M54.5 Low back pain; R74.0 Nonspecific elevation of levels of transaminase and lactic acid dehydrogenase [LDH]; R79.1 Abnormal coagulation profile; R19.7 Diarrhea, unspecified; M19.90 Unspecified osteoarthritis, unspecified site; Z79.899 Other long term (current) drug therapy; Z79.01 Long term (current) use of anticoagulants; Z80.1 Family history of malignant neoplasm of trachea, bronchus and lung; Z90.49 Acquired absence of other specified parts of digestive tract; Z88.1 Allergy status to other antibiotic agents; Z86.718 Personal history of other venous thrombosis and embolism; Z87.19 Personal history of other diseases of the digestive system; Z79.1 Long term (current) use of non-steroidal anti-inflammatories (NSAID); Z79.891 Long term (current) use of opiate analgesic; Z71.3 Dietary counseling and surveillance; Z82.49 Family history of ischemic heart disease and other diseases of the circulatory system
CPT/HCPCS: 36415; 74000; 74177; 76705; 80048; 80053; 81001; 81003; 82150; 82248; 83690; 85025; 85027; 85610; 87086

== ENCOUNTER 2016-09-22 13:13 | Day surgery (SDC) | payer MEDICARE ==
[2016-09-18 11:46] VITALS: BMI 46.8
[~2016-09-22 13:13] MED LIST: DEXAMETHASONE SOD PHOSPHATE 10 MG/ML 1 ML VIAL IV ONE; FAMOTIDINE 20 MG/2 ML VIAL IV PRN; HYDROmorphone 1 MG/ML 1 ML SYRINGE IVP PRN; LIDOCAINE 1% 20 ML VIAL (10MG/ML) FOR IV START INTRADERMA PRN; MIDAZOLAM 2 MG/2 ML VIAL IV PRN; SCOPOLAMINE 1.5MG/72HR PATCH TRANSDERM ONE
[2016-09-22] MEDS: LACTATED RINGERS 1,000 ML IV SCH ×2 (13:24→13:52)
[2016-09-22 14:08] LABS: INR 1.2 (<1.2); Prothrombin Time 11.9 sec (9.0-12.0)
[2016-09-22] MEDS ORDERED: ENOXAPARIN 40 MG/0.4 ML SYRINGE SQ ONE ×2 (14:47→15:12)
[2016-09-22] MEDS ORDERED: ceFAZolin 2 GM in SODIUM CHLORIDE 0.9% 100 ML IVPB ONE (14:47)
--- NOTE | 2016-09-22 15:00 | P.HPIHPCON ---
History of Present Illness H&P Date: 09/22/16 Chief Complaint: gallstone pancreatitis Patient is a 56-year-old female who presented with recurrent pancreatitis. Due to worsening pain and was admitted for about a week after which he was discharged once everything was relieved. He presents today for his cholecystectomy. He is morbidly obese limited ambulation due to back pain. History of asthma and a deep vein thrombosis in the past as well. His history of appendectomy knee surgery and wrist surgery. Is not complaining of any pain at this time. There is no nausea no vomiting. His no jaundice regular chills. His no icterus. Urine is normal. Consent for Procedure: I have explained the operation/procedure to the patient, including the risks, benefits, side effects, alternative therapies (including not receiving the proposed treatment or service), the likelihood of the patient achieving his/her goals, and potential recuperation problems for the procedure/sedation/analgesia , as well as any blood products, if indicated. I also explained to the patient the risks, benefits and side effects of the alternatives, as well as the risks related to not receiving the proposed procedure, care, treatment, or services. - Constitutional Constitutional: Denies chills, Denies fever - EENT Eyes: denies blurred vision, denies pain Ears, nose, mouth and throat: Denies headache, Denies sore throat - Cardiovascular Cardiovascular: Denies chest pain, Denies shortness of breath - Respiratory Respiratory: Denies cough, Denies 7 - Gastrointestinal Gastrointestinal: Reports abdominal pain - Genitourinary (Male) Genitourinary: Denies dysuria, Denies hematuria - Psychiatric Psychiatric: Denies anxiety, Denies depression - Endocrine Endocrine: Denies fatigue, Denies weight change Past Medical History Past Medical History: Asthma, COPD, Deep Vein Thrombosis (DVT), GERD/Reflux, Hypertension, Osteoarthritis (OA), Sleep Apnea/CPAP/BIPAP Additional Past Medical History / Comment(s): Lower Back Pain, SPINAL STENOSIS, SCOLIOSIS. DJD RT KNEE - NO CARTILAGE LEFT. Hx Pancreatitis - REOCCURRED R.T CHOLELITHIASIS. CAN'T USE CPAP MASK. VARICOSE VEINS. MILD EDEMA RT ANKLE. History of Any Multi-Drug Resistant Organisms: None Reported Past Surgical History: Appendectomy, Orthopedic Surgery Additional Past Surgical History / Comment(s): Meniscus repair Rt knee, Lt wrist surgery. Past Anesthesia/Blood Transfusion Reactions: No Reported Reaction Smoking Status: Never smoker - Past Family History Mother Family Medical History: Cancer, Deep Vein Thrombosis (DVT) Additional Family Medical History / Comment(s): lung cancer Medications and Allergies Home Medications Medication Instructions Recorded Confirmed Type Cetirizine HCl [Zyrtec] 10 mg PO DAILY 08/09/15 09/18/16 History Hydrochlorothiazide [Hydrodiuril] 25 mg PO DAILY 09/11/16 09/22/16 History Meloxicam [Mobic] 15 mg PO BID 09/11/16 09/18/16 History Ranitidine HCl 150 mg PO HS 09/11/16 09/18/16 History oxyCODONE-APAP 10-325MG [Percocet 1 tab PO Q4H PRN 09/11/16 09/18/16 History 10-325 mg] Allergies Allergy/AdvReac Type Severity Reaction Status Date / Time doxycycline Allergy Unknown Verified 09/22/16 13:20 Surgical - Exam Vital Signs Temp Pulse Resp BP Pulse Ox 96.8 F L 90 16 131/99 94 L 09/22/16 13:33 09/22/16 13:33 09/22/16 13:33 09/22/16 13:33 09/22/16 13:33 - General obese - Eyes PERRL, no icteric, no deviation, no loss of movement - ENT normal pinna, normal nares, normal mucosa - Respiratory normal expansion, normal respiratory effort - Cardiovascular Rhythm: regular - Abdomen Abdomen: soft, non tender - Integumentary no rash, no growths - Neurologic normal coordination, normal sensation - Musculoskeletal normal gait, normal posture - Psychiatric oriented to time, oriented to person, oriented to place, speech is normal, memory intact Results - Labs 09/22/16 13:50 Abnormal Lab Results - Last 24 Hours (Table) 09/22/16 Range/Units 13:40 INR 1.2 H (<1.2) Diabetes panel 09/22/16 Range/Units 13:50 Potassium 4.0 (3.5-5.1) mmol/L Pituitary panel 09/22/16 Range/Units 13:50 Potassium 4.0 (3.5-5.1) mmol/L Adrenal panel 09/22/16 Range/Units 13:50 Potassium 4.0 (3.5-5.1) mmol/L - Imaging US - abdomen: report reviewed Assessment and Plan (1) Cholelithiasis Status: Acute (2) Pancreatitis Status: Acute Plan: Patient is a 56-year-old gentleman who has multiple medical problems and comorbidities including asthma severe morbid obesity obstructive sleep apnea degenerative joint disease with scoliosis and stenosis previous history of wrist knee surgery osteoarthritis recurrent gallstone pancreatitis. The patient is overall high risk. The patient is a BMI of 46.9. Due to recurrent history of gallstone pancreatitis his BMI multiple medical comorbidities is a high-risk patient. This can benefit of the procedure were discussed in detail patient understands and is willing to proceed to prevent further recurrence of his pancreatitis. His second episode was much worse than the first one. The patient understands and they're willing to proceed.
[2016-09-22] MEDS ORDERED: LIDOCAINE 1% INJ 10MG/ML (20 ML MDV) ONE (15:12)
[2016-09-22] MEDS ORDERED: MIDAZOLAM 2 MG/2 ML VIAL ONE (15:12)
[2016-09-22] MEDS ORDERED: NEOSTIGMINE 1 MG/ML 10 ML VIAL ONE (15:12)
[2016-09-22] MEDS ORDERED: HYDROmorphone (PF) 1 MG/ML ONE (15:12)
[2016-09-22] MEDS ORDERED: SUCCINYLCHOLINE CHLORIDE VIAL 200 MG/10 ML VIAL IV ONE (15:12)
[2016-09-22] MEDS ORDERED: PROPOFOL 10 MG/ML 20 ML VIAL IV ONE (15:12)
[2016-09-22] MEDS ORDERED: GLYCOPYRROLATE 0.2 MG/ML 2 ML VIAL ONE (15:12)
[2016-09-22] MEDS ORDERED: VECURONIUM 10 MG VIAL IV ONE (15:12)
[2016-09-22] MEDS ORDERED: ONDANSETRON 4 MG/2 ML VIAL ONE (15:12)
[2016-09-22] MEDS ORDERED: fentaNYL (PF) 50 MCG/ML 2 ML AMP ONE (15:12)
[2016-09-22] MEDS ORDERED: SODIUM CHLORIDE 0.9% 50 ML with ceFAZolin 1,000 MG IV ONE ×2 (15:31)
[2016-09-22] MEDS ORDERED: BUPIVACAIN-EPI 0.25%-1:200,000 30 ML VIAL SQ ONE (15:48)
--- NOTE | 2016-09-22 17:14 | P.OP ---
Date of Procedure: 09/22/16 Preoperative Diagnosis: Gallstone Pancreatitis Postoperative Diagnosis: Gallstone pancreatitis , cholelithiasis with chronic cholecystitis Procedure(s) Performed: Robot assisted laparoscopic choelcystectomy Implants: Anesthesia: CYNTHIA Surgeon: Eliud Ash Pathology: other Condition: stable Indications for Procedure: Operative Findings: Description of Procedure: Patient is a 56-year-old male who presented with rirecurrent gallstone panacreatitis. After appropriate informed consent and answering all the patient's questions patient taken the operating placement position and given general anesthesia with endotracheal intubation. Left upper quadrant palmers point was identified and abdominal cavity was entered using Optiview technique. It was insufflated to 18 mmHg . Three 8 mm ports were then placed for the robot in the left upper quadrant and right upper quadrant. 12 mm subumbilical port was placed the 5 mm laparoscopic port and left upper quadrant was kept and the it millimeter port was placed 4 cm inferior to it in the midclavicular line on the left side. Once ports were then placed the patient was placed in appropriate position of left side down and reverse Trendelenburg. Proplast cardia and no cautery were taken as instruments. The gallbladder was retracted Cephalad and Inflammatory adhesions were taken down with the help of electrocautery. Appropriate critical view was obtained in cystic duct and artery were isolated. 2 clips proximally and 1 distally were plced in the artery and cystic duct and then and transected sharply with the help of scissors. The gallbladder was then taken off the gallbladder fossa with the help of electrocautery. There was inadvertent hole in the gallbladder which resulted in leakage of bile. All that was sucked dry. The abdomen was thoroughly irrigated and sucked dry. Gallbladder was then placed in Endo Catch bag and removed through 12 port site after undocking the robot. Due to minimal bleeding in the hepatic bed Surgicel was replaced laparoscopically that controlled the bleeding completely there was no other bleeding was thoroughly sucked dry. Abdomen was then again visualized and completely irrigated and sucked dry. 12 mm port site was closed with the help of a Facundo Luis under direct laparoscopic view followed by reinforcement using a UR 6-0 Vicryl interrupted [id number] sutures from the outside. At this point the procedure was terminated and all ports were removed. Local anesthesia infiltrated into the incisions skin was closed with 4 -0 Monocryl and Dermabond was applied. Patient is tolerated the porcedure well with no complications. She was extubated and taken to recovery room in stable condition. Plan - Discharge Summary New Discharge Prescriptions: No Action Cetirizine HCl [Zyrtec] 10 mg PO DAILY Gabapentin [Neurontin] 300 mg PO TID #90 cap Hydrochlorothiazide [Hydrodiuril] 25 mg PO DAILY Meloxicam [Mobic] 15 mg PO BID Ranitidine HCl 150 mg PO HS oxyCODONE-APAP 10-325MG [Percocet 10-325 mg] 1 tab PO Q4H PRN PRN Reason: Pain Warfarin [Coumadin] 5 mg PO DAILY #0 Discharge Medication List Cetirizine HCl [Zyrtec] 10 mg PO DAILY 08/09/15 [History] Gabapentin [Neurontin] 300 mg PO TID #90 cap 10/30/15 [Rx] Hydrochlorothiazide [Hydrodiuril] 25 mg PO DAILY 09/11/16 [History] Meloxicam [Mobic] 15 mg PO BID 09/11/16 [History] Ranitidine HCl 150 mg PO HS 09/11/16 [History] oxyCODONE-APAP 10-325MG [Percocet 10-325 mg] 1 tab PO Q4H PRN 09/11/16 [History] Warfarin [Coumadin] 5 mg PO DAILY #0 09/17/16 [Rx]
[2016-09-22 17:28] VITALS: TEMP 98.8
[2016-09-22 18:15] VITALS: RESP 18
[2016-09-22] MEDS ORDERED: oxyCODONE-APAP 5-325MG 1 EACH TAB PO ONE (18:25)
[2016-09-22 19:02] VITALS: BP 121/77; PULSE 77
== END 2016-09-22 19:21 | disposition home or self-care (01) ==
LOC: OR 13:13
PROVIDERS: ATTEND Surgery
DX: K80.10 Calculus of gallbladder with chronic cholecystitis without obstruction (principal); K66.0 Peritoneal adhesions (postprocedural) (postinfection); K85.90 Acute pancreatitis without necrosis or infection, unspecified; J44.9 Chronic obstructive pulmonary disease, unspecified; K21.9 Gastro-esophageal reflux disease without esophagitis; I10 Essential (primary) hypertension; G47.33 Obstructive sleep apnea (adult) (pediatric); M19.90 Unspecified osteoarthritis, unspecified site; Z86.718 Personal history of other venous thrombosis and embolism; Z79.01 Long term (current) use of anticoagulants; E66.01 Morbid (severe) obesity due to excess calories; Z68.42 Body mass index [BMI] 45.0-49.9, adult; Z79.1 Long term (current) use of non-steroidal anti-inflammatories (NSAID); Z79.899 Other long term (current) drug therapy; Z88.1 Allergy status to other antibiotic agents
CPT/HCPCS: 88304; 84132; 85610; 47562; J2250; J0330; J1100; J2710; J0690 ×2; J2405; J2001; J1650; J3010; J1170; J2704

== ENCOUNTER 2021-02-02 14:49 | Inpatient (IN) | payer MEDICARE ==
[2021-02-02] MEDS ORDERED: ALBUTEROL HFA INHALER INHALATION STA (15:11)
[2021-02-02] MEDS ORDERED: methylPREDNISolone SOD SUCCI 125 MG/2 ML VIAL IV STA (15:11)
--- NOTE | 2021-02-02 15:32 | ED ---
General Adult HPI - General Chief complaint: Shortness of Breath Stated complaint: DONYA Time Seen by Provider: 02/02/21 14:54 Source: patient, EMS, RN notes reviewed, old records reviewed Mode of arrival: EMS Limitations: no limitations - History of Present Illness Initial comments: 60-year-old male presenting with fatigue, weakness, and dyspnea. Patient has multiple family members with tested positive for coronavirus. He has not been vaccinated. Paramedics were called secondary to increased work of breathing. Patient was noted to be severely hypoxic. Patient states he has been sick for a proximally 5 or 6 days. He denies current nausea or vomiting. Denies central chest pain. - Related Data Home Medications Medication Instructions Recorded Confirmed Cetirizine HCl [Zyrtec] 10 mg PO DAILY 08/09/15 09/18/16 Meloxicam [Mobic] 15 mg PO BID 09/11/16 09/18/16 Ranitidine HCl 150 mg PO HS 09/11/16 09/18/16 hydroCHLOROthiazide [Hydrodiuril] 25 mg PO DAILY 09/11/16 09/22/16 oxyCODONE-APAP 10-325MG [Percocet 1 tab PO Q4H PRN 09/11/16 09/18/16 10-325 mg] Previous Rx's Medication Instructions Recorded Gabapentin [Neurontin] 300 mg PO TID #90 cap 10/30/15 Warfarin [Coumadin] 5 mg PO DAILY #0 09/17/16 Allergies Allergy/AdvReac Type Severity Reaction Status Date / Time doxycycline Allergy Unknown Verified 02/02/21 15:03 Review of Systems ROS Statement: Those systems with pertinent positive or pertinent negative responses have been documented in the HPI. ROS Other: All systems not noted in ROS Statement are negative. Past Medical History Past Medical History: Asthma, COPD, Deep Vein Thrombosis (DVT), Osteoarthritis (OA) Additional Past Medical History / Comment(s): lower back pain, hx pancreatitis History of Any Multi-Drug Resistant Organisms: None Reported Past Surgical History: Appendectomy, Orthopedic Surgery Additional Past Surgical History / Comment(s): meniscus repair rt knee, lt wrist surgery Past Anesthesia/Blood Transfusion Reactions: No Reported Reaction Past Psychological History: No Psychological Hx Reported Past Alcohol Use History: None Reported Past Drug Use History: None Reported - Past Family History Mother Family Medical History: Cancer, Deep Vein Thrombosis (DVT) Additional Family Medical History / Comment(s): lung cancer General Exam Limitations: no limitations General appearance: alert, in distress Head exam: Present: atraumatic, normocephalic Eye exam: Present: normal appearance, PERRL ENT exam: Present: normal exam Neck exam: Present: normal inspection Respiratory exam: Present: respiratory distress, rales, rhonchi, decreased breath sounds Cardiovascular Exam: Present: regular rate, normal rhythm GI/Abdominal exam: Present: soft. Absent: distended, tenderness, guarding, rebound Extremities exam: Present: pedal edema Neurological exam: Present: alert, oriented X3, CN II-XII intact. Absent: motor sensory deficit Psychiatric exam: Present: normal affect, normal mood Skin exam: Present: warm, dry, intact. Absent: cyanosis, diaphoretic Course Vital Signs 02/02/21 02/02/21 02/02/21 14:57 15:26 16:09 Temperature 98.4 F Pulse Rate 99 95 94 Respiratory 28 H 24 20 Rate Blood Pressure 101/67 111/83 O2 Sat by Pulse 67 L 91 L 90 L Oximetry EKG Findings - EKG Comments: EKG Findings:: EKG: Normal sinus rhythm, left axis, low voltage, incomplete right bundle-branch block, rate of 96, KS interval 192, QRS duration 114, QTC [address] segment elevation. Medical Decision Making - Medical Decision Making 60-year-old male presenting with suspicion for coronavirus. Initial oxygen saturations are in the 60s on room air with good waveform. Patient has otherwise stable vitals. He is placed on a nonrebreather and his oxygenation improved to around 90% with decreased work of breathing. Patient has a normal CBC, he has some acute kidney injury with an elevated creatinine. He has elevated liver enzymes consistent with coronavirus. His x-ray shows a bilateral multifocal pneumonia consistent with coronavirus pneumonia. Patient given some IV fluid, IV steroids, he will be admitted to Dr. Edouard who is aware. Pulmonology placed on consult. - Lab Data Result diagrams: 02/02/21 15:20 02/02/21 15:20 Lab Results 02/02/21 02/02/21 02/02/21 Range/Units 15:20 15:20 15:20 WBC 7.6 (3.8-10.6) k/uL RBC 5.03 (4.30-5.90) m/uL Hgb 15.9 (13.0-17.5) gm/dL Hct 45.7 (39.0-53.0) % MCV 91.0 (80.0-100.0) fL MCH 31.6 (25.0-35.0) pg MCHC 34.7 (31.0-37.0) g/dL RDW 13.7 (11.5-15.5) % Plt Count 167 (150-450) k/uL MPV 7.4 Neutrophils % 87 % Lymphocytes % 6 % Monocytes % 5 % Eosinophils % 0 % Basophils % 1 % Neutrophils # 6.6 (1.3-7.7) k/uL Lymphocytes # 0.4 L (1.0-4.8) k/uL Monocytes # 0.4 (0-1.0) k/uL Eosinophils # 0.0 (0-0.7) k/uL Basophils # 0.0 (0-0.2) k/uL PT 18.5 H (9.0-12.0) sec INR 1.9 H (<1.2) APTT 28.4 (22.0-30.0) sec Sodium 126 L (137-145) mmol/L Potassium 4.8 (3.5-5.1) mmol/L Chloride 89 L (98-107) mmol/L Carbon Dioxide 23 (22-30) mmol/L Anion Gap 14 mmol/L BUN 65 H (9-20) mg/dL Creatinine 1.85 H (0.66-1.25) mg/dL Est GFR (CKD-EPI)AfAm 44 (>60 ml/min/1.73 sqM) Est GFR (CKD-EPI)NonAf 38 (>60 ml/min/1.73 sqM) Glucose 123 H (74-99) mg/dL Plasma Lactic Acid Chandler (0.7-2.0) mmol/L Calcium 7.9 L (8.4-10.2) mg/dL Magnesium 1.9 (1.6-2.3) mg/dL Total Bilirubin 0.9 (0.2-1.3) mg/dL AST 219 H (17-59) U/L ALT 55 H (4-49) U/L Alkaline Phosphatase 63 (38-126) U/L Total Protein 6.7 (6.3-8.2) g/dL Albumin 3.4 L (3.5-5.0) g/dL Coronavirus (PCR) (Not Detectd) 02/02/21 02/02/21 Range/Units 15:20 15:20 WBC (3.8-10.6) k/uL RBC (4.30-5.90) m/uL Hgb (13.0-17.5) gm/dL Hct (39.0-53.0) % MCV (80.0-100.0) fL MCH (25.0-35.0) pg MCHC (31.0-37.0) g/dL RDW (11.5-15.5) % Plt Count (150-450) k/uL MPV Neutrophils % % Lymphocytes % % Monocytes % % Eosinophils % % Basophils % % Neutrophils # (1.3-7.7) k/uL Lymphocytes # (1.0-4.8) k/uL Monocytes # (0-1.0) k/uL Eosinophils # (0-0.7) k/uL Basophils # (0-0.2) k/uL PT (9.0-12.0) sec INR (<1.2) APTT (22.0-30.0) sec Sodium (137-145) mmol/L Potassium (3.5-5.1) mmol/L Chloride (98-107) mmol/L Carbon Dioxide (22-30) mmol/L Anion Gap mmol/L BUN (9-20) mg/dL Creatinine (0.66-1.25) mg/dL Est GFR (CKD-EPI)AfAm (>60 ml/min/1.73 sqM) Est GFR (CKD-EPI)NonAf (>60 ml/min/1.73 sqM) Glucose (74-99) mg/dL Plasma Lactic Acid Chandler 1.8 (0.7-2.0) mmol/L Calcium (8.4-10.2) mg/dL Magnesium (1.6-2.3) mg/dL Total Bilirubin (0.2-1.3) mg/dL AST (17-59) U/L ALT (4-49) U/L Alkaline Phosphatase (38-126) U/L Total Protein (6.3-8.2) g/dL Albumin (3.5-5.0) g/dL Coronavirus (PCR) Detected A (Not Detectd) Critical Care Time Critical Care Time: Yes Total Critical Care Time: 35 Disposition Clinical Impression: COVID-19, Hypoxia Disposition: ADMITTED IP TO THIS [facility] Condition: Serious Is patient prescribed a controlled substance at d/c from ED?: No Referrals: Ran Valero MD [Primary Care Provider] - 1-2 days Decision to Admit Reason: Admit from EC Decision Date: 02/02/21 Decision Time: 16:32
[2021-02-02 15:34] LABS: Basophils % (A) 1 %; Eosinophils % (A) 0 %; HCT 45.7 % (39.0-53.0); HGB 15.9 gm/dL (13.0-17.5); Lymphocytes # (A) 0.4 k/uL (1.0-4.8); Lymphocytes % (A) 6 %; MCH 31.6 pg (25.0-35.0); MCHC 34.7 g/dL (31.0-37.0); Mean Platelet Volume 7.4; Monocytes # (A) 0.4 k/uL (0-1.0); Monocytes % (A) 5 %; Neutrophils # (A) 6.6 k/uL (1.3-7.7); Neutrophils % (A) 87 %; Platelet Count 167 k/uL (150-450); RBC 5.03 m/uL (4.30-5.90); RDW 13.7 % (11.5-15.5); WBC 7.6 k/uL (3.8-10.6)
[2021-02-02 15:45] LABS: Albumin 3.4 g/dL (3.5-5.0); Calcium 7.9 mg/dL (8.4-10.2); INR 1.9 (<1.2); Magnesium 1.9 mg/dL (1.6-2.3); Partial Thromboplastin Time 28.4 sec (22.0-30.0); Prothrombin Time 18.5 sec (9.0-12.0); Total Bilirubin 0.9 mg/dL (0.2-1.3); Total Protein 6.7 g/dL (6.3-8.2)
[2021-02-02] MEDS ORDERED: HYDROmorphone 1 MG/ML 1 ML SYRINGE IVP STA (16:02)
[2021-02-02 16:13] LABS: Potassium 4.8 mmol/L (3.5-5.1)
[2021-02-02] MEDS ORDERED: NALOXONE 0.4 MG/ML 1 ML VIAL IV PRN (16:30)
--- NOTE | 2021-02-02 16:35 | XR ---
EXAMINATION TYPE: XR chest 1V portable DATE OF EXAM: 02/02/2021 CLINICAL HISTORY: hypoxia. TECHNIQUE: Portable frontal view of the chest. COMPARISON: None FINDINGS: Elevation of the right hemidiaphragm. The cardiomediastinal silhouette is within normal li mits for size. There is diffuse interstitial coarsening and moderate diffuse patchy airspace opacitie s. No pleural effusion. No pneumothorax seen. No acute displaced osseous fracture. IMPRESSION: Diffuse residual coarsening and moderate patchy airspace opacities bilaterally. Findings may represen t Covid 19 pneumonia.
[2021-02-02] MEDS ORDERED: ENOXAPARIN 40 MG/0.4 ML SYRINGE SQ SCH (17:30)
[2021-02-02] MEDS ORDERED: WARFARIN 7.5 MG TAB PO SCH (18:00)
--- NOTE | 2021-02-02 18:13 | P.CNPUL ---
History of Present Illness Consult date: 02/02/21 Reason for consult: dyspnea, pneumonia History of present illness: 61-year-old male patient, presented to the emergency department because of wor sening shortness of breath and fatigue and weakness. He has several family members in his household tested positive for COVID 19. The patient himself is not vaccinated. His symptoms started approximately 5 or 6 days ago. He progressively became more short of breath and the patient presented to the emergency department very short of breath, hypoxic, initial pulse ox was 67% on room air oxygen. He was afebrile and he was tachycardic. His EKG showed normal sinus rhythm, sinus tachycardia, white cell count was at 7.6 with a hemoglobin of 15.9, he sodium level was 126, he had an acute kidney injury with a BUN of 65 with a creatinine of 1.8, the patient immediately checked positive for COVID 19. Lactic acid level was at 1.9. The patient was initially placed on 100% nonrebreather facemask. It improved his oxygen saturation. We are the process of switching this patient to a combination of Airvo and 100% on a beta facemasks pH chest x-ray shows some elevation of the right hemidiaphragm. The patient is morbidly obese with a BMI of 46.7. The chest x-ray also showed diffuse bilateral pulmonary infiltrates consistent with COVID 19 related pneumonia. The patient is started on steroids. inflammatory markers are still pending for now. Comorbid conditions include COPD/asthma, previous history of DVT, previous history of pancreatitis, hypertension. Review of Systems Constitutional: Reports fatigue, Reports fever, Reports lethargy, Reports poor appetite, Reports weakness Eyes: denies as per HPI, denies blurred vision, denies bulging eye, denies decreased vision, denies diplopia, denies discharge, denies dry eye, denies irritation, denies itching, denies pain, denies photophobia, denies loss of peripheral vision, denies loss of vision, denies tunnel vision/blind spots Ears: deny: decreased hearing, ear discharge, earache, tinnitus Ears, nose, mouth and throat: Reports as per HPI Breasts: absent: as per HPI, gynecomastia Cardiovascular: Reports decreased exercise tolerance, Reports dyspnea on exertion Respiratory: Reports cough, Reports dyspnea Gastrointestinal: Reports as per HPI Genitourinary: Reports as per HPI Musculoskeletal: Reports as per HPI Musculoskeletal: absent: ankle pain, ankle stiffness, ankle swelling Integumentary: Reports as per HPI Neurological: Reports as per HPI Psychiatric: Reports as per HPI, Reports confusion Hematologic/Lymphatic: Reports as per HPI Allergic/Immunologic: Reports as per HPI Past Medical History Past Medical History: Asthma, COPD, Deep Vein Thrombosis (DVT), Osteoarthritis (OA) Additional Past Medical History / Comment(s): lower back pain, hx pancreatitis History of Any Multi-Drug Resistant Organisms: None Reported Past Surgical History: Appendectomy, Orthopedic Surgery Additional Past Surgical History / Comment(s): meniscus repair rt knee, lt wrist surgery Past Anesthesia/Blood Transfusion Reactions: No Reported Reaction Past Psychological History: No Psychological Hx Reported Past Alcohol Use History: None Reported Past Drug Use History: None Reported - Past Family History Mother Family Medical History: Cancer, Deep Vein Thrombosis (DVT) Additional Family Medical History / Comment(s): lung cancer Medications and Allergies Home Medications Medication Instructions Recorded Confirmed Type Meloxicam [Mobic] 7.5 mg PO DAILY 09/11/16 02/02/21 History oxyCODONE-APAP 10-325MG [Percocet 1 tab PO Q6H PRN 09/11/16 02/02/21 History 10-325 mg] Albuterol Inhaler [Ventolin Hfa 2 puff INHALATION RT-Q4H PRN 02/02/21 02/02/21 History Inhaler] Allopurinol [Zyloprim] 300 mg PO BID 02/02/21 02/02/21 History Ammonium Lactate Cream [Lac-Hydrin 1 applic TOPICAL DAILY PRN 02/02/21 02/02/21 History 12% Cream] Cephalexin [Keflex] 500 mg PO Q12HR 02/02/21 02/02/21 History Cyclobenzaprine [Flexeril] 10 mg PO TID PRN 02/02/21 02/02/21 History Diclofenac Sodium Gel [Voltaren 1 gm TOPICAL DAILY PRN 02/02/21 02/02/21 History Gel] Famotidine [Pepcid] 40 mg PO HS 02/02/21 02/02/21 History Gabapentin 1,600 mg PO BID 02/02/21 02/02/21 History Lisinopril-Hctz 10-12.5 mg 1 tab PO BID 02/02/21 02/02/21 History [Zestoretic 10-12.5] Warfarin [Coumadin] 5 mg PO DIRECTED 02/02/21 02/02/21 History Warfarin [Coumadin] 7.5 mg PO DIRECTED 02/02/21 02/02/21 History predniSONE See Taper PO DAILY 02/02/21 02/02/21 History Allergies Allergy/AdvReac Type Severity Reaction Status Date / Time doxycycline Allergy Unknown Verified 02/02/21 16:48 Physical Exam Vitals: Vital Signs Temp Pulse Resp BP Pulse Ox 02/02/21 17:00 95 24 118/83 85 L 02/02/21 16:09 94 20 111/83 90 L 02/02/21 15:26 95 24 91 L 02/02/21 14:57 98.4 F 99 28 H 101/67 67 L Intake and Output 02/02/21 02/02/21 02/02/21 06:59 14:59 22:59 Other: Weight 165.108 kg General appearance: alert, in distress, the patient was having significant respiratory distress, immediately placed on 100% nonrebreather facemask. History short of breath at this point in time. Hypoxemia is gradually improving at this point. Head exam: Present: atraumatic, normocephalic Eye exam: Present: normal appearance, PERRL ENT exam: Present: normal exam Neck exam: Present: normal inspection Respiratory exam: Present: respiratory distress, rales, rhonchi, decreased breath sounds, the patient has crackles in the mid lower lung griffiths b ilaterally. Cardiovascular Exam: Present: regular rate, normal rhythm GI/Abdominal exam: Present: soft. Absent: distended, tenderness, guarding, rebo und Extremities exam: Present: pedal edema Neurological exam: Present: alert, oriented X3, CN II-XII intact. Absent: motor sensory deficit Psychiatric exam: Present: normal affect, normal mood Skin exam: Present: warm, dry, intact. Absent: cyanosis, diaphoretic Results - Laboratory Findings CBC and BMP: 02/02/21 15:20 02/02/21 15:20 PT/INR, D-dimer PT 18.5 sec (9.0-12.0) H 02/02/21 15:20 INR 1.9 (<1.2) H 02/02/21 15:20 Abnormal lab findings: Abnormal Labs 02/02/21 02/02/21 02/02/21 15:20 15:20 15:20 Lymphocytes # 0.4 L PT 18.5 H INR 1.9 H Sodium 126 L Chloride 89 L BUN 65 H Creatinine 1.85 H Glucose 123 H Calcium 7.9 L AST 219 H ALT 55 H Albumin 3.4 L Coronavirus (PCR) 02/02/21 15:20 Lymphocytes # PT INR Sodium Chloride BUN Creatinine Glucose Calcium AST ALT Albumin Coronavirus (PCR) Detected A - Diagnostic Findings Chest x-ray: image reviewed Assessment and Plan Plan: 1 acute COVID 19 related pneumonia. The patient is presenting with worsening shortness of breath of 5 days' duration and the patient came in with severe hypoxic history failure currently on 100% nonrebreather facemask. Patient is not vaccinated. He is exposed to several other household who have COVID 19. The patient has diffuse bilateral pulmonary infiltrates consistent with COVID 19 related pneumonia. 2 acute hypoxic respiratory failure secondary to above currently on 100% nonrebreather facemask 3 acute kidney injury, likely secondary to intravascular volume depletion/dehydration. Rule out Coumadin she was ATN. BNP is at 65 with a creatinine of 1.8 4 acute hypochloremic hyponatremia 5 previous history of DVT and the patient has been maintained on long-term articulation with warfarin, INR is at 1.9 6 obesity with a BMI of 46.7 7 chronic back pain 8 history of COPD/asthma 9 previous history of pancreatitis 10 hypertension 11 chronic pain involving the back and the patient is demented on a combination of Voltaren gel, Flexeril, Percocet and nonsteroidal anti-inflammatory medications including Mobic. Plan Admit this patient to the hospital Utilize a combination of high flow oxygen in the form of Airvo 60 L/90% FiO2 in addition to 100% on a beta facemask May utilize BiPAP to maintain a saturation above 90% and comfort and this will be set at a later stage Start the patient on steroids and the patient has been started on IV decadron 6 mg q24 hours Check pro calcitonin level and if the levels are low proceed with treatment with Baricitinib. The patient is not a candidate for Remdesivir due to his high oxygen requirements. check inflammatory markers including d-dimer, LDH CRP Continue the patient on warfarin. Pharmacy will dose the Coumadin on a daily basis. The patient takes 7.5 mg an alternation with 5 mg. Resume all medications. The patient may need his pain medication to be resumed at this point in time. He is also going to maintain on his gabapentin and Flexeril and allopurinol. Abdomen multivitamins including vitamin C and D and zinc Hydrate the patient with IV fluids and the patient was started on normal saline at the rate of 75 mL an hour. Recheck renal function within next 24 hours. Monitor sodium level We'll continue to follow.
[2021-02-02] MEDS: SODIUM CHLORIDE 0.9% 1,000 ML IV SCH (18:19)
[2021-02-02] MEDS ORDERED: methylPREDNISolone SOD SUCCI 125 MG/2 ML VIAL IV SCH (19:00)
[2021-02-02] MEDS: ALBUTEROL HFA INHALER INHALATION SCH (19:59)
[2021-02-02] MEDS: GABAPENTIN 400 MG CAP PO SCH (21:44)
[2021-02-02] MEDS: allopurinoL 300 MG TAB PO SCH (21:44)
[2021-02-02] MEDS ORDERED: BARICITINIB 2 MG TABLET PO SCH (23:00)
[2021-02-02] MEDS: LISINOPRIL-HCTZ 10-12.5 MG 1 EACH TAB PO SCH (23:16)
[2021-02-02] MEDS: LORazepam 2 MG/ML INJ IV PRN (23:43)
[2021-02-03] MEDS: oxyCODONE-APAP 10-325MG 1 EACH TAB PO PRN ×3 (04:53→17:49)
[2021-02-03 05:48] LABS: Amorphous Sediment,Urine Occasional /hpf; Appearance,Urine Clear (Clear); Bilirubin,Urine Negative (Negative); Blood,Urine Large (Negative); Color,Urine Yellow; Glucose,Urine (UA) Negative (Negative); Hyaline Casts,Urine 16 /lpf (0-2); Ketones,Urine Negative (Negative); Leukocyte Esterase,Urine Small (Negative); Mucus,Urine Occasional /hpf; Nitrite,Urine Negative (Negative); PH, Urine 5.5 (5.0-8.0); Protein,Urine 2+ (Negative); RBC,Urine 2 /hpf (0-5); Specific Gravity,Urine 1.017 (1.001-1.035); Urobilinogen,Urine <2.0 mg/dL (<2.0); WBC,Urine 23 /hpf (0-5)
[2021-02-03] MEDS: ALBUTEROL HFA INHALER INHALATION SCH ×4 (07:25→19:20)
[2021-02-03] MEDS: DEXAMETHASONE SOD PHOSPHATE 10 MG/ML 1 ML VIAL IVP SCH (08:27)
[2021-02-03] MEDS: ASCORBIC ACID 500 MG TAB PO SCH (08:28)
[2021-02-03] MEDS: CHOLECALCIFEROL 25 MCG (1000 IU) TABLET PO SCH (08:28)
[2021-02-03] MEDS: ZINC SULFATE 220 MG CAP PO SCH (08:28)
[2021-02-03] MEDS: GABAPENTIN 400 MG CAP PO SCH ×2 (08:28→22:15)
[2021-02-03] MEDS: allopurinoL 300 MG TAB PO SCH ×2 (08:29→22:16)
[2021-02-03] MEDS: CYCLOBENZAPRINE 10 MG TAB PO PRN (08:30)
[2021-02-03] MEDS: LORazepam 2 MG/ML INJ IV PRN ×2 (08:31→22:21)
[2021-02-03] MEDS: SODIUM CHLORIDE 0.9% 1,000 ML IV SCH ×2 (08:31→17:48)
[2021-02-03 08:54] LABS: Basophils # (A) 0.02 X 10*3/uL (0.00-0.10); Basophils % (A) 0.3 %; Eosinophils # (A) 0 X 10*3/uL (0.04-0.35); Eosinophils % (A) 0 %; Lymphocytes # (A) 0.44 X 10*3/uL (0.90-5.00); Lymphocytes % (A) 7.5 %; MCH 30.9 pg (27.0-32.0); MCHC 33.3 g/dL (32.0-37.0); MCV 92.6 fL (80.0-97.0); Mean Platelet Volume 9.5 fL (9.5-12.2); Monocytes # (A) 0.26 X 10*3/uL (0.20-1.00); Monocytes % (A) 4.4 %; Neutrophils # (A) 5.12 X 10*3/uL (1.80-7.70); Neutrophils % (A) 87.5 %; Platelet Count 189 X 10*3/uL (140-440); RBC 4.86 X 10*6/uL (4.40-5.60); RDW 13.8 % (11.5-14.5); WBC 5.86 X 10*3/uL (4.50-10.00)
[2021-02-03 09:46] LABS: African American GFR (CKD) 45.7 (60.0-200.0); Anion Gap 15.3 mmol/L (10.00-18.00); BUN/Creat Ratio 33.44 Ratio (12.00-20.00); Blood Urea Nitrogen 60.2 mg/dL (9.0-27.0); Calcium 8.1 mg/dL (8.7-10.3); Carbon Dioxide 21.7 mmol/L (20.0-27.5); Non-African American GFR(CKD) 39.5 (60.0-200.0); Potassium 4.3 mmol/L (3.5-5.5)
--- NOTE | 2021-02-03 10:15 | P.HPIM ---
History of Present Illness H&P Date: 02/02/21 Chief Complaint: Shortness of breath Patient is 60-year-old male with a known history of asthma/COPD, history of DVT, chronic low back pain, osteoarthritis and morbid obesity with BMI 46.7 presents to ER with complaints of generalized weakness and fatigue and worsening short ness of breath and exertional dyspnea. Patient states that he has been having symptoms for the past 5-6 days and his and other family members were also tested positive for covid 19 infection. Patient has been having generalized weakness and fatigue. No complaints of chest pain. Does have cough without any sputum production. No nausea vomiting or abdominal pain or diarrhea. Chest x-ray showed diffuse residual coarsening and moderate patchy airspace opacities bilaterally. Findings may represent Covid 19 pneumonia. EKG showed normal sinus rhythm Laboratory data showed WBC 7.6 hemoglobin 10.9 and platelets 167 lymphocytes 0.4 INR 1.9 and d-dimer is 1.16 Sodium 126 potassium 4.8 chloride 89 BUN 6 T5 and creatinine 1.85 calcium 7.9 AST 219 ALT 55 alk phos 63 ALT is 2347 and CRP 24.0 Procalcitonin 0.69, Covid 19 PCR detected. Patient is not vaccinated. Review of Systems Constitutional: Patient denies any fever or chills . Generalized weakness, poor appetite. Tightness. Abdomen: Patient denied nausea vomiting and diarrhea and abdominal pain. Cardiovascular: Patient denies any chest pain or short of breath no palpitations. Respiratory: Patient does have cough congestion and shortness of breath Neurologic: Patient denied any numbness or tingling headache. Musculoskeletal: Patient denies any complaints of joint swelling or deformity. Skin: Negative Psychiatric: Negative Endocrine: No heat or cold intolerance. No recent weight gain. Genitourinary: No dysuria or hematuria. All other 14 point ROS negative except the above Past Medical History Past Medical History: Asthma, COPD, Deep Vein Thrombosis (DVT), Osteoarthritis (OA) Additional Past Medical History / Comment(s): lower back pain, hx pancreatitis History of Any Multi-Drug Resistant Organisms: None Reported Past Surgical History: Appendectomy, Orthopedic Surgery Additional Past Surgical History / Comment(s): meniscus repair rt knee, lt wrist surgery Past Anesthesia/Blood Transfusion Reactions: No Reported Reaction Past Psychological History: No Psychological Hx Reported Past Alcohol Use History: None Reported Past Drug Use History: None Reported - Past Family History Mother Family Medical History: Cancer, Deep Vein Thrombosis (DVT) Additional Family Medical History / Comment(s): lung cancer Medications and Allergies Home Medications Medication Instructions Recorded Confirmed Type Meloxicam [Mobic] 7.5 mg PO DAILY 09/11/16 02/02/21 History oxyCODONE-APAP 10-325MG [Percocet 1 tab PO Q6H PRN 09/11/16 02/02/21 History 10-325 mg] Albuterol Inhaler [Ventolin Hfa 2 puff INHALATION RT-Q4H PRN 02/02/21 02/02/21 History Inhaler] Allopurinol [Zyloprim] 300 mg PO BID 02/02/21 02/02/21 History Ammonium Lactate Cream [Lac-Hydrin 1 applic TOPICAL DAILY PRN 02/02/21 02/02/21 History 12% Cream] Cephalexin [Keflex] 500 mg PO Q12HR 02/02/21 02/02/21 History Cyclobenzaprine [Flexeril] 10 mg PO TID PRN 02/02/21 02/02/21 History Diclofenac Sodium Gel [Voltaren 1 gm TOPICAL DAILY PRN 02/02/21 02/02/21 History Gel] Famotidine [Pepcid] 40 mg PO HS 02/02/21 02/02/21 History Gabapentin 1,600 mg PO BID 02/02/21 02/02/21 History Lisinopril-Hctz 10-12.5 mg 1 tab PO BID 02/02/21 02/02/21 History [Zestoretic 10-12.5] Warfarin [Coumadin] 5 mg PO DIRECTED 02/02/21 02/02/21 History Warfarin [Coumadin] 7.5 mg PO DIRECTED 02/02/21 02/02/21 History predniSONE See Taper PO DAILY 02/02/21 02/02/21 History Allergies Allergy/AdvReac Type Severity Reaction Status Date / Time doxycycline Allergy Unknown Verified 02/02/21 16:48 Physical Exam Vitals: Vital Signs Temp Pulse Resp BP Pulse Ox 02/02/21 20:00 91 L 02/02/21 18:24 92 24 88/65 88 L 02/02/21 17:38 84 20 111/83 93 L 02/02/21 17:00 95 24 118/83 85 L 02/02/21 16:09 94 20 111/83 90 L 02/02/21 15:26 95 24 91 L 02/02/21 14:57 98.4 F 99 28 H 101/67 67 L Intake and Output 02/02/21 02/02/21 02/02/21 06:59 14:59 22:59 Other: Weight 165.108 kg PHYSICAL EXAMINATION: Patient is lying in the bed comfortably, no acute distress, awake alert and oriented. Morbidly obese.. HEENT: Normocephalic. Neck is supple. Pupils reactive. Nostrils clear. Oral cavity is moist. Neck reveals no JVD, carotid bruits, or thyromegaly. CHEST EXAMINATION: Trachea is central. Symmetrical expansion. Bilateral coarse breath sounds and diminished sounds... CARDIAC: Normal S1, S2 with no gallops. No murmurs ABDOMEN: Soft. Bowel sounds normal. No organomegaly. No abdominal bruits. Extremities: reveal no edema. No clubbing or cyanosis Neurologically awake, alert, oriented x3 with well-coordinated movements. No focal deficits noted Skin: No rash or skin lesions. Psychiatric: Coperative. Nonsuicidal Musculoskeletal: No joint swelling or deformity. Normal range of motion. Results CBC & Chem 7: 02/03/21 04:35 02/03/21 04:35 Labs: Abnormal Lab Results - Last 24 Hours (Table) 02/02/21 02/02/21 02/02/21 Range/Units 15:20 15:20 15:20 Lymphocytes # 0.4 L (1.0-4.8) k/uL PT 18.5 H (9.0-12.0) sec INR 1.9 H (<1.2) D-Dimer (<0.60) mg/L FEU Sodium 126 L (137-145) mmol/L Chloride 89 L (98-107) mmol/L BUN 65 H (9-20) mg/dL Creatinine 1.85 H (0.66-1.25) mg/dL Glucose 123 H (74-99) mg/dL Calcium 7.9 L (8.4-10.2) mg/dL AST 219 H (17-59) U/L ALT 55 H (4-49) U/L Lactate Dehydrogenase (313-618) U/L C-Reactive Protein (<1.0) mg/dL Albumin 3.4 L (3.5-5.0) g/dL Coronavirus (PCR) (Not Detectd) 02/02/21 02/02/21 02/02/21 Range/Units 15:20 17:31 17:31 Lymphocytes # (1.0-4.8) k/uL PT (9.0-12.0) sec INR (<1.2) D-Dimer 1.16 H (<0.60) mg/L FEU Sodium (137-145) mmol/L Chloride (98-107) mmol/L BUN (9-20) mg/dL Creatinine (0.66-1.25) mg/dL Glucose (74-99) mg/dL Calcium (8.4-10.2) mg/dL AST (17-59) U/L ALT (4-49) U/L Lactate Dehydrogenase 2347 H (313-618) U/L C-Reactive Protein 24.0 H (<1.0) mg/dL Albumin (3.5-5.0) g/dL Coronavirus (PCR) Detected A (Not Detectd) Thrombosis Risk Factor Assmnt - DVT/VTE Prophylaxis DVT/VTE Prophylaxis: Pharmacologic Prophylaxis ordered Assessment and Plan Assessment: Acute hypoxic respiratory failure due to code 19 pneumonia. Requiring 100% nonrebreather at this time. Acute code 19 pneumonia. Patient has been symptoms of weakness tiredness for the past 5-6 days. Not vaccinated. Hypovolemic hyponatremia Acute kidney injury with creatinine level I.85 on admission Previous history of DVT currently on anticoagulation with Coumadin. INR 1.9 Morbid obesity with BMI 46.7 Chronic low back pain COPD/asthma Osteoarthritis DVT prophylaxis patient is already on Coumadin. Plan: Patient will be continued on oxygen supplementation. Currently on 100% nonrebreather. BiPAP as needed. Patient does have elevated inflammatory markers. Continue with Coumadin dosing. Continue the home medications and pain management. Added multivitamins, vitamin C, D and zinc sulfate. Due to elevated pro calcitonin level. UA was ordered. Follow up closely. Maru tor BMP and CBC. Pulmonary is on board. Prognosis is guarded at this time. Time with Patient: Greater than 30
[2021-02-03] MEDS: LISINOPRIL-HCTZ 10-12.5 MG 1 EACH TAB PO SCH ×2 (10:16→22:16)
--- NOTE | 2021-02-03 11:59 | P.PN ---
Subjective Progress Note Date: 02/03/21 Principal diagnosis: Dyspnea, pneumonia 61-year-old male patient, presented to the emergency department because of worsening shortness of breath and fatigue and weakness. He has several family members in his household tested positive for COVID 19. The patient himself is not vaccinated. His symptoms started approximately 5 or 6 days ago. He progressively became more short of breath and the patient presented to the emergency department very short of breath, hypoxic, initial pulse ox was 67% on room air oxygen. He was afebrile and he was tachycardic. His EKG showed normal sinus rhythm, sinus tachycardia, white cell count was at 7.6 with a hemoglobin of 15.9, he sodium level was 126, he had an acute kidney injury with a BUN of 65 with a creatinine of 1.8, the patient immediately checked positive for COVID 19. Lactic acid level was at 1.9. The patient was initially placed on 100% nonrebreather facemask. It improved his oxygen saturation. We are the process of switching this patient to a combination of Airvo and 100% on a beta facemasks pH chest x-ray shows some elevation of the right hemidiaphragm. The patient is morbidly obese with a BMI of 46.7. The chest x-ray also showed diffuse bilateral pulmonary infiltrates consistent with COVID 19 related pneumonia. The patient is started on steroids. inflammatory markers are still pending for now. Comorbid conditions include COPD/asthma, previous history of DVT, previous history of pancreatitis, hypertension. On 02/03/2021 patient seen in follow-up in the emergency department, he remains on BiPAP support with pressures of 16 and 6 and FiO2 of 100%, remains dyspneic, tachypneic, easily desaturates when the mask is removed to receive sips of water and oral medications. He is awake and alert, oriented 3. Answers questions appropriately. Afebrile, no completes of chest discomfort, occasional cough. Symptoms have been reviewed, CBC was unremarkable, lymphocyte count is stable at 0.44. Patient is on Coumadin, his INR today is 2.0, his d-dimer yesterday was 1.16, today sodium is improving and is up to 120, potassium is 4.3, chloride is 91, BUN is 60, creatinine is 1.8., His inflammatory markers are improving, his LDH is down to 893, CRP is still pending, his pro-calcitonin level is elevated at 0.69 suggesting possibility of underlying gastrointestinal infection, urinalysis is suggestive of acute urinary tract infection, urine culture has been sent and pending at this time. Rocephin has been added for empiric antibiotic coverage, patient is on Decadron 6 mg daily, he is on Coumadin as mentioned above, and he is receiving IV fluids with 0.9 normal saline at a rate of 75 per hour, he is on vitamin C, D and zinc. His chest x-ray from yesterday shows diffuse residual coarsening of moderate patchy airspace opacities bilaterally. Objective - Vital Signs Vital signs: Vital Signs Temp 98.4 F 02/02/21 14:57 Pulse 88 02/03/21 09:45 Resp 20 02/03/21 09:45 BP 118/82 02/03/21 09:45 Pulse Ox 91 L 02/03/21 09:45 Intake & Output 02/02/21 02/03/21 02/03/21 18:59 06:59 18:59 Weight 165.108 kg - Exam GENERAL EXAM: Alert, morbidly obese 60-year-old white male tachypneic, dyspneic, 60-year-old white male, on BiPAP support with pressures of 16 and 6 a nd FiO2 of 100%, comfortable in no apparent distress. HEAD: Normocephalic/atraumatic. EYES: Normal reaction of pupils, equal size. Conjunctiva pink, sclera white. NOSE: Clear with pink turbinates. THROAT: No erythema or exudates. NECK: No masses, no JVD, no thyroid enlargement, no adenopathy. CHEST: No chest wall deformity. Symmetrical expansion. LUNGS: Equal air entry with bibasilar crackles CVS: Regular rate and rhythm, normal S1 and S2, no gallops, no murmurs, no rubs ABDOMEN: Soft, nontender. No hepatosplenomegaly, normal bowel sounds, no guarding or rigidity. EXTREMITIES: No clubbing, 1+ lower extremity edema no cyanosis, 2+ pulses and upper and lower extremities. MUSCULOSKELETAL: Muscle strength and tone normal. SPINE: No scoliosis or deformity SKIN: No rashes CENTRAL NERVOUS SYSTEM: Alert and oriented -3. No focal deficits, tone is normal in all 4 extremities. PSYCHIATRIC: Alert and oriented -3. Appropriate affect. Intact judgment and insight. - Labs CBC & Chem 7: 02/03/21 04:35 02/03/21 04:35 Labs: Abnormal Lab Results - Last 24 Hours (Table) 02/02/21 02/02/21 02/02/21 Range/Units 15:20 15:20 15:20 Lymphocytes # 0.4 L (1.0-4.8) k/uL Eosinophils # (0.04-0.35) X 10*3/uL PT 18.5 H (9.0-12.0) sec INR 1.9 H (<1.2) D-Dimer (<0.60) mg/L FEU Sodium 126 L (137-145) mmol/L Chloride 89 L (98-107) mmol/L BUN 65 H (9-20) mg/dL Creatinine 1.85 H (0.66-1.25) mg/dL Est GFR (CKD-EPI)AfAm (60.0-200.0) Est GFR (CKD-EPI)NonAf (60.0-200.0) BUN/Creatinine Ratio (12.00-20.00) Ratio Glucose 123 H (74-99) mg/dL Calcium 7.9 L (8.4-10.2) mg/dL AST 219 H (17-59) U/L ALT 55 H (4-49) U/L Lactate Dehydrogenase (313-618) U/L C-Reactive Protein (<1.0) mg/dL Albumin 3.4 L (3.5-5.0) g/dL Procalcitonin (0.02-0.09) ng/mL Urine Protein (Negative) Urine Blood (Negative) Ur Leukocyte Esterase (Negative) Urine WBC (0-5) /hpf Amorphous Sediment (None) /hpf Hyaline Casts (0-2) /lpf Urine Mucus (None) /hpf Coronavirus (PCR) (Not Detectd) 02/02/21 02/02/21 02/02/21 Range/Units 15:20 17:31 17:31 Lymphocytes # (1.0-4.8) k/uL Eosinophils # (0.04-0.35) X 10*3/uL PT (9.0-12.0) sec INR (<1.2) D-Dimer 1.16 H (<0.60) mg/L FEU Sodium (137-145) mmol/L Chloride (98-107) mmol/L BUN (9-20) mg/dL Creatinine (0.66-1.25) mg/dL Est GFR (CKD-EPI)AfAm (60.0-200.0) Est GFR (CKD-EPI)NonAf (60.0-200.0) BUN/Creatinine Ratio (12.00-20.00) Ratio Glucose (74-99) mg/dL Calcium (8.4-10.2) mg/dL AST (17-59) U/L ALT (4-49) U/L Lactate Dehydrogenase 2347 H (313-618) U/L C-Reactive Protein 24.0 H (<1.0) mg/dL Albumin (3.5-5.0) g/dL Procalcitonin (0.02-0.09) ng/mL Urine Protein (Negative) Urine Blood (Negative) Ur Leukocyte Esterase (Negative) Urine WBC (0-5) /hpf Amorphous Sediment (None) /hpf Hyaline Casts (0-2) /lpf Urine Mucus (None) /hpf Coronavirus (PCR) Detected A (Not Detectd) 02/02/21 02/03/21 02/03/21 Range/Units 17:31 03:31 04:35 Lymphocytes # (1.0-4.8) k/uL Eosinophils # (0.04-0.35) X 10*3/uL PT 20.0 H (9.0-12.0) sec INR 2.0 H (<1.2) D-Dimer (<0.60) mg/L FEU Sodium (137-145) mmol/L Chloride (98-107) mmol/L BUN (9-20) mg/dL Creatinine (0.66-1.25) mg/dL Est GFR (CKD-EPI)AfAm (60.0-200.0) Est GFR (CKD-EPI)NonAf (60.0-200.0) BUN/Creatinine Ratio (12.00-20.00) Ratio Glucose (74-99) mg/dL Calcium (8.4-10.2) mg/dL AST (17-59) U/L ALT (4-49) U/L Lactate Dehydrogenase (313-618) U/L C-Reactive Protein (<1.0) mg/dL Albumin (3.5-5.0) g/dL Procalcitonin 0.69 H (0.02-0.09) ng/mL Urine Protein 2+ H (Negative) Urine Blood Large H (Negative) Ur Leukocyte Esterase Small H (Negative) Urine WBC 23 H (0-5) /hpf Amorphous Sediment Occasional H (None) /hpf Hyaline Casts 16 H (0-2) /lpf Urine Mucus Occasional H (None) /hpf Coronavirus (PCR) (Not Detectd) 02/03/21 02/03/21 Range/Units 04:35 04:35 Lymphocytes # 0.44 L (1.0-4.8) k/uL Eosinophils # 0 L (0.04-0.35) X 10*3/uL PT (9.0-12.0) sec INR (<1.2) D-Dimer (<0.60) mg/L FEU Sodium 128 L (137-145) mmol/L Chloride 91 L (98-107) mmol/L BUN 60.2 H (9-20) mg/dL Creatinine 1.8 H (0.66-1.25) mg/dL Est GFR (CKD-EPI)AfAm 45.7 L (60.0-200.0) Est GFR (CKD-EPI)NonAf 39.5 L (60.0-200.0) BUN/Creatinine Ratio 33.44 H (12.00-20.00) Ratio Glucose 155 H (74-99) mg/dL Calcium 8.1 L (8.4-10.2) mg/dL AST (17-59) U/L ALT (4-49) U/L Lactate Dehydrogenase 893 H (313-618) U/L C-Reactive Protein (<1.0) mg/dL Albumin (3.5-5.0) g/dL Procalcitonin (0.02-0.09) ng/mL Urine Protein (Negative) Urine Blood (Negative) Ur Leukocyte Esterase (Negative) Urine WBC (0-5) /hpf Amorphous Sediment (None) /hpf Hyaline Casts (0-2) /lpf Urine Mucus (None) /hpf Coronavirus (PCR) (Not Detectd) Microbiology - Last 24 Hours (Table) 02/03/21 03:31 Urine Culture - Preliminary Urine,Voided Assessment and Plan Plan: Assessment: #1. Acute COVID-19, patient presented with worsening shortness of breath of 5 days duration, and she was not a candidate for Remdesivir related to severity of his hypoxia. Baricitinib was started on 02/02/2021 which will be discontinued today on 02/03/2021 related to possibility of underlying urinary tract infection #2. Acute hypoxic respiratory failure secondary to the above, patient is currently on BiPAP support with pressures of 12 and 6 and an FiO2 of 100% #3. Acute kidney injury related to intravascular volume depletion and dehydration #4. Acute hypochloremic hyponatremia, improved #5. Previous history of DVT on Coumadin, with today's INR of 2.0 6. Obesity with BMI of 46.7 kg/m #7. Chronic back pain #8. History of COPD/asthma #9. Previous history of pancreatitis #10. Hypertension #11. Acute urinary tract infection, patient will be started on Rocephin, urine culture is pending Plan: Continue BiPAP support at current pressures We'll discontinue Baricitinib Continue Decadron Continue Coumadin, today's INR is 2.0 Inflammatory markers improving Pro calcitonin level was elevated, and there is possibility of urinary tract infection We'll start on Rocephin we'll send a urine culture We'll continue to follow his clinical course closely I performed a history & physical examination of the patient and discussed their management with my nurse practitioner, Dari Salas. I reviewed the nurse practitioner's note and agree with the documented findings and plan of care. Lung sounds are positive for diminished with crackles throughout the lung griffiths. The findings and the impression was discussed with the patient. I attest to the documentation by the nurse practitioner. Time with Patient: Less than 30
[2021-02-03 12:15] LABS: C Reactive Protein 21.9 mg/dL (0.00-0.80)
[2021-02-03] MEDS ORDERED: WARFARIN 5 MG TAB PO SCH (18:00)
[2021-02-04] MEDS: oxyCODONE-APAP 10-325MG 1 EACH TAB PO PRN ×3 (05:41→21:20)
[2021-02-04] MEDS: LORazepam 2 MG/ML INJ IV PRN ×3 (05:42→21:20)
[2021-02-04 06:47] LABS: INR 3.3 (<1.2); Prothrombin Time 31.4 sec (9.0-12.0)
[2021-02-04 08:17] LABS: Basophils % (A) 0 %; Eosinophils % (A) 0 %; HCT 45.2 % (39.0-53.0); HGB 15.7 gm/dL (13.0-17.5); Lymphocytes # (A) 0.4 k/uL (1.0-4.8); Lymphocytes % (A) 3 %; MCH 31.9 pg (25.0-35.0); MCHC 34.6 g/dL (31.0-37.0); MCV 92.1 fL (80.0-100.0); Mean Platelet Volume 7.2; Monocytes # (A) 0.5 k/uL (0-1.0); Monocytes % (A) 5 %; Neutrophils # (A) 10.1 k/uL (1.3-7.7); Neutrophils % (A) 91 %; Platelet Count 202 k/uL (150-450); RBC 4.91 m/uL (4.30-5.90); RDW 13.6 % (11.5-15.5); WBC 11.2 k/uL (3.8-10.6)
[2021-02-04] MEDS: ALBUTEROL HFA INHALER INHALATION SCH ×4 (08:38→22:05)
[2021-02-04 08:42] LABS: Albumin 3.2 g/dL (3.5-5.0); Calcium 8.1 mg/dL (8.4-10.2); Potassium 4.3 mmol/L (3.5-5.1); Total Bilirubin 0.6 mg/dL (0.2-1.3); Total Protein 6.4 g/dL (6.3-8.2)
--- NOTE | 2021-02-04 10:22 | P.PN ---
Subjective Progress Note Date: 02/03/21 Principal diagnosis: Acute hypoxic respiratory failure secondary to coronary 19 pneumonia requiring BiPAP. Patient is 60-year-old male with a known history of asthma/COPD, history of DVT, chronic low back pain, osteoarthritis and morbid obesity with BMI 46.7 presents to ER with complaints of generalized weakness and fatigue and worsening shortness of breath and exertional dyspnea. Patient states that he has been having symptoms for the past 5-6 days and his and other family members were also tested positive for covid 19 infection. Patient has been having generalized weakness and fatigue. No complaints of chest pain. Does have cough without any sputum production. No nausea vomiting or abdominal pain or diarrhea. Chest x-ray showed diffuse residual coarsening and moderate patchy airspace opacities bilaterally. Findings may represent Covid 19 pneumonia. EKG showed normal sinus rhythm Laboratory data showed WBC 7.6 hemoglobin 10.9 and platelets 167 lymphocytes 0.4 INR 1.9 and d-dimer is 1.16 Sodium 126 potassium 4.8 chloride 89 BUN 6 T5 and creatinine 1.85 calcium 7.9 AST 219 ALT 55 alk phos 63 ALT is 2347 and CRP 24.0 Procalcitonin 0.69, Covid 19 PCR detected. Patient is not vaccinated. 02/03/2021 Patient is currently in the emergency room awaiting for self care unit transfer. Patient is currently on BiPAP 16 x 6 with 100% FiO2. Patient is still having shortness of breath and he appears to be in mild distress and unable to tolerate BiPAP. Otherwise patient has been afebrile. Currently being continued on dexamethasone, warfarin dosing and multivitamins. Patient was started on ceftriaxone for possible urinary tract infection. Laboratory data showed sodium 128 potassium 4.3 chloride 91 BUN 60 and creatinine 1.8 LDH 893 and CRP 21.9 No complaints of chest pain. Patient is awake alert and oriented 3. Pulmonary is on board. Current medications reviewed. Objective - Vital Signs Vital signs: Vital Signs Temp 98.4 F 02/02/21 14:57 Pulse 88 02/03/21 09:45 Resp 20 02/03/21 09:45 BP 118/82 02/03/21 09:45 Pulse Ox 91 L 02/03/21 09:45 Intake & Output 02/02/21 02/03/21 02/03/21 18:59 06:59 18:59 Weight 165.108 kg - Exam PHYSICAL EXAMINATION: Patient is lying in the bed comfortably, no acute distress, awake alert and oriented. Morbidly obese.. HEENT: Normocephalic. Neck is supple. Pupils reactive. Nostrils clear. Oral cavity is moist. Neck reveals no JVD, carotid bruits, or thyromegaly. CHEST EXAMINATION: Trachea is central. Symmetrical expansion. Bilateral coarse breath sounds and diminished sounds... CARDIAC: Normal S1, S2 with no gallops. No murmurs ABDOMEN: Soft. Bowel sounds normal. No organomegaly. No abdominal bruits. Extremities: reveal no edema. No clubbing or cyanosis Neurologically awake, alert, oriented x3 with well-coordinated movements. No focal deficits noted Skin: No rash or skin lesions. Psychiatric: Coperative. Nonsuicidal Musculoskeletal: No joint swelling or deformity. Normal range of motion. - Labs CBC & Chem 7: 02/04/21 07:57 02/04/21 07:57 Labs: Abnormal Lab Results - Last 24 Hours (Table) 02/02/21 02/02/21 02/02/21 Range/Units 15:20 15:20 15:20 Lymphocytes # 0.4 L (1.0-4.8) k/uL Eosinophils # (0.04-0.35) X 10*3/uL PT 18.5 H (9.0-12.0) sec INR 1.9 H (<1.2) D-Dimer (<0.60) mg/L FEU Sodium 126 L (137-145) mmol/L Chloride 89 L (98-107) mmol/L BUN 65 H (9-20) mg/dL Creatinine 1.85 H (0.66-1.25) mg/dL Est GFR (CKD-EPI)AfAm (60.0-200.0) Est GFR (CKD-EPI)NonAf (60.0-200.0) BUN/Creatinine Ratio (12.00-20.00) Ratio Glucose 123 H (74-99) mg/dL Calcium 7.9 L (8.4-10.2) mg/dL AST 219 H (17-59) U/L ALT 55 H (4-49) U/L Lactate Dehydrogenase (313-618) U/L C-Reactive Protein (<1.0) mg/dL Albumin 3.4 L (3.5-5.0) g/dL Procalcitonin (0.02-0.09) ng/mL Urine Protein (Negative) Urine Blood (Negative) Ur Leukocyte Esterase (Negative) Urine WBC (0-5) /hpf Amorphous Sediment (None) /hpf Hyaline Casts (0-2) /lpf Urine Mucus (None) /hpf Coronavirus (PCR) (Not Detectd) 02/02/21 02/02/21 02/02/21 Range/Units 15:20 17:31 17:31 Lymphocytes # (1.0-4.8) k/uL Eosinophils # (0.04-0.35) X 10*3/uL PT (9.0-12.0) sec INR (<1.2) D-Dimer 1.16 H (<0.60) mg/L FEU Sodium (137-145) mmol/L Chloride (98-107) mmol/L BUN (9-20) mg/dL Creatinine (0.66-1.25) mg/dL Est GFR (CKD-EPI)AfAm (60.0-200.0) Est GFR (CKD-EPI)NonAf (60.0-200.0) BUN/Creatinine Ratio (12.00-20.00) Ratio Glucose (74-99) mg/dL Calcium (8.4-10.2) mg/dL AST (17-59) U/L ALT (4-49) U/L Lactate Dehydrogenase 2347 H (313-618) U/L C-Reactive Protein 24.0 H (<1.0) mg/dL Albumin (3.5-5.0) g/dL Procalcitonin (0.02-0.09) ng/mL Urine Protein (Negative) Urine Blood (Negative) Ur Leukocyte Esterase (Negative) Urine WBC (0-5) /hpf Amorphous Sediment (None) /hpf Hyaline Casts (0-2) /lpf Urine Mucus (None) /hpf Coronavirus (PCR) Detected A (Not Detectd) 02/02/21 02/03/21 02/03/21 Range/Units 17:31 03:31 04:35 Lymphocytes # (1.0-4.8) k/uL Eosinophils # (0.04-0.35) X 10*3/uL PT 20.0 H (9.0-12.0) sec INR 2.0 H (<1.2) D-Dimer (<0.60) mg/L FEU Sodium (137-145) mmol/L Chloride (98-107) mmol/L BUN (9-20) mg/dL Creatinine (0.66-1.25) mg/dL Est GFR (CKD-EPI)AfAm (60.0-200.0) Est GFR (CKD-EPI)NonAf (60.0-200.0) BUN/Creatinine Ratio (12.00-20.00) Ratio Glucose (74-99) mg/dL Calcium (8.4-10.2) mg/dL AST (17-59) U/L ALT (4-49) U/L Lactate Dehydrogenase (313-618) U/L C-Reactive Protein (<1.0) mg/dL Albumin (3.5-5.0) g/dL Procalcitonin 0.69 H (0.02-0.09) ng/mL Urine Protein 2+ H (Negative) Urine Blood Large H (Negative) Ur Leukocyte Esterase Small H (Negative) Urine WBC 23 H (0-5) /hpf Amorphous Sediment Occasional H (None) /hpf Hyaline Casts 16 H (0-2) /lpf Urine Mucus Occasional H (None) /hpf Coronavirus (PCR) (Not Detectd) 02/03/21 02/03/21 Range/Units 04:35 04:35 Lymphocytes # 0.44 L (1.0-4.8) k/uL Eosinophils # 0 L (0.04-0.35) X 10*3/uL PT (9.0-12.0) sec INR (<1.2) D-Dimer (<0.60) mg/L FEU Sodium 128 L (137-145) mmol/L Chloride 91 L (98-107) mmol/L BUN 60.2 H (9-20) mg/dL Creatinine 1.8 H (0.66-1.25) mg/dL Est GFR (CKD-EPI)AfAm 45.7 L (60.0-200.0) Est GFR (CKD-EPI)NonAf 39.5 L (60.0-200.0) BUN/Creatinine Ratio 33.44 H (12.00-20.00) Ratio Glucose 155 H (74-99) mg/dL Calcium 8.1 L (8.4-10.2) mg/dL AST (17-59) U/L ALT (4-49) U/L Lactate Dehydrogenase 893 H (313-618) U/L C-Reactive Protein (<1.0) mg/dL Albumin (3.5-5.0) g/dL Procalcitonin (0.02-0.09) ng/mL Urine Protein (Negative) Urine Blood (Negative) Ur Leukocyte Esterase (Negative) Urine WBC (0-5) /hpf Amorphous Sediment (None) /hpf Hyaline Casts (0-2) /lpf Urine Mucus (None) /hpf Coronavirus (PCR) (Not Detectd) Assessment and Plan Assessment: Acute hypoxic respiratory failure due to code 19 pneumonia. Requiring 100% nonrebreather . Changed to BiPAP. Acute covid 19 19 pneumonia. Patient has been symptoms of weakness tiredness for the past 5-6 days. Not vaccinated. Hypovolemic hyponatremia Acute UTI Acute kidney injury with creatinine level I.85 on admission Previous history of DVT currently on anticoagulation with Coumadin. INR 1.9 Morbid obesity with BMI 46.7 Chronic low back pain COPD/asthma Osteoarthritis DVT prophylaxis patient is already on Coumadin. Plan: Patient will be continued on oxygen supplementation. BiPAP as needed. Patient does have elevated inflammatory markers. Continue with Coumadin dosing. Continue the home medications and pain management. Added multivitamins, vitamin C, D and zinc sulfate. Due to elevated pro calcitonin level. UA was ordered. Follow up closely. Monitor BMP and CBC. Pulmonary is on board. Prognosis is guarded at this time. Time with Patient: Greater than 30
[2021-02-04] MEDS: SODIUM CHLORIDE 0.9% 1,000 ML IV SCH ×2 (10:51→22:38)
[2021-02-04] MEDS: DEXAMETHASONE SOD PHOSPHATE 10 MG/ML 1 ML VIAL IVP SCH (10:51)
[2021-02-04] MEDS: allopurinoL 300 MG TAB PO SCH ×2 (10:52→21:19)
[2021-02-04] MEDS: LISINOPRIL-HCTZ 10-12.5 MG 1 EACH TAB PO SCH ×2 (10:52→21:20)
[2021-02-04] MEDS: ZINC SULFATE 220 MG CAP PO SCH (10:52)
--- NOTE | 2021-02-04 11:09 | P.PN ---
Subjective Progress Note Date: 02/04/21 Principal diagnosis: COVID-19 pneumonia 61-year-old male patient, presented to the emergency department because of worsening shortness of breath and fatigue and weakness. He has several family members in his household tested positive for COVID 19. The patient himself is not vaccinated. His symptoms started approximately 5 or 6 days ago. He progressively became more short of breath and the patient presented to the emergency department very short of breath, hypoxic, initial pulse ox was 67% on room air oxygen. He was afebrile and he was tachycardic. His EKG showed normal sinus rhythm, sinus tachycardia, white cell count was at 7.6 with a hemoglobin of 15.9, he sodium level was 126, he had an acute kidney injury with a BUN of 65 with a creatinine of 1.8, the patient immediately checked positive for COVID 19. Lactic acid level was at 1.9. The patient was initially placed on 100% nonrebreather facemask. It improved his oxygen saturation. We are the process of switching this patient to a combination of Airvo and 100% on a beta facemasks pH chest x-ray shows some elevation of the right hemidiaphragm. The patient is morbidly obese with a BMI of 46.7. The chest x-ray also showed diffuse bilateral pulmonary infiltrates consistent with COVID 19 related pneumonia. The patient is started on steroids. inflammatory markers are still pending for now. Comorbid conditions include COPD/asthma, previous history of DVT, previous history of pancreatitis, hypertension. On 02/03/2021 patient seen in follow-up in the emergency department, he remains on BiPAP support with pressures of 16 and 6 and FiO2 of 100%, remains dyspneic, tachypneic, easily desaturates when the mask is removed to receive sips of water and oral medications. He is awake and alert, oriented 3. Answers questions appropriately. Afebrile, no completes of chest discomfort, occasional cough. Symptoms have been reviewed, CBC was unremarkable, lymphocyte count is stable at 0.44. Patient is on Coumadin, his INR today is 2.0, his d-dimer yesterday was 1.16, today sodium is improving and is up to 120, potassium is 4.3, chloride is 91, BUN is 60, creatinine is 1.8., His inflammatory markers are improving, his LDH is down to 893, CRP is still pending, his pro-calcitonin level is elevated at 0.69 suggesting possibility of underlying gastrointestinal infection, urinalysis is suggestive of acute urinary tract infection, urine culture has been sent and pending at this time. Rocephin has been added for empiric antibiotic coverage, patient is on Decadron 6 mg daily, he is on Coumadin as mentioned above, and he is receiving IV fluids with 0.9 normal saline at a rate of 75 per hour, he is on vitamin C, D and zinc. His chest x-ray from yesterday shows diffuse residual coarsening of moderate patchy airspace opacities bilaterally. The patient is seen today 02/04/2021 in follow-up in the emergency department. His pulmonary symptoms have progressed. He is still on BiPAP 16/6 and 100% FiO2 to maintain O2 saturations in the mid 80s. He is sitting up on the stretcher. Tachypneic. Remains open alert and oriented. He is adamant about not going on life support. White count 11.2. Hemoglobin 15.7. Sodium 131. Potassium 4.3. Creatinine 1.42. Glucose 147. AST 352. ALT 83. Urine culture pending. He is continued on ceftriaxone. Remains on Decadron, vitamin supplements. Anticoagulated with warfarin. Normal saline at 75 ML's per hour. Objective - Vital Signs Vital signs: Vital Signs Temp 97.8 F 02/04/21 02:12 Pulse 98 02/04/21 05:50 Resp 28 H 02/04/21 05:50 BP 116/73 02/04/21 05:50 Pulse Ox 88 L 02/04/21 08:33 Intake & Output 02/03/21 02/04/21 02/04/21 18:59 06:59 18:59 Weight 165.108 kg - Exam GENERAL EXAM: Alert, morbidly obese 60-year-old gentleman, on BiPAP 16/6 and 100% FiO2 with O2 saturations in the mid 80s, tachypneic. HEAD: Normocephalic. EYES: Normal reaction of pupils, equal size. NOSE: Clear with pink turbinates. THROAT: No erythema or exudates. NECK: No masses, no JVD. CHEST: No chest wall deformity. LUNGS: Equal air entry with coarse crackles bilaterally. CVS: S1 and S2 normal with no audible murmur, regular rhythm. ABDOMEN: No hepatosplenomegaly, normal bowel sounds, no guarding or rigidity. SPINE: No scoliosis or deformity SKIN: No rashes CENTRAL NERVOUS SYSTEM: No focal deficits, tone is normal in all 4 extremities. EXTREMITIES: There is plus peripheral edema. Changes of chronic venous stasis No clubbing, no cyanosis. Peripheral pulses are intact. - Labs CBC & Chem 7: 02/04/21 07:57 02/04/21 07:57 Labs: Abnormal Lab Results - Last 24 Hours (Table) 02/03/21 02/04/21 02/04/21 Range/Units 04:35 05:45 07:57 WBC 11.2 H (3.8-10.6) k/uL Neutrophils # 10.1 H (1.3-7.7) k/uL Lymphocytes # 0.4 L (1.0-4.8) k/uL PT 31.4 H (9.0-12.0) sec INR 3.3 H (<1.2) Sodium (137-145) mmol/L Chloride (98-107) mmol/L BUN (9-20) mg/dL Creatinine (0.66-1.25) mg/dL Glucose (74-99) mg/dL Calcium (8.4-10.2) mg/dL AST (17-59) U/L ALT (4-49) U/L C-Reactive Protein 21.90 H (0.00-0.80) mg/dL Albumin (3.5-5.0) g/dL 02/04/21 Range/Units 07:57 WBC (3.8-10.6) k/uL Neutrophils # (1.3-7.7) k/uL Lymphocytes # (1.0-4.8) k/uL PT (9.0-12.0) sec INR (<1.2) Sodium 131 L (137-145) mmol/L Chloride 94 L (98-107) mmol/L BUN 75 H (9-20) mg/dL Creatinine 1.42 H (0.66-1.25) mg/dL Glucose 147 H (74-99) mg/dL Calcium 8.1 L (8.4-10.2) mg/dL AST 352 H (17-59) U/L ALT 83 H (4-49) U/L C-Reactive Protein (0.00-0.80) mg/dL Albumin 3.2 L (3.5-5.0) g/dL Microbiology - Last 24 Hours (Table) 02/03/21 03:31 Urine Culture - Preliminary Urine,Voided Assessment and Plan Assessment: 1 Acute COVID-19, patient presented with worsening shortness of breath of 5 days duration, and she was not a candidate for Remdesivir related to severity of his hypoxia. Baricitinib was started on 02/02/2021, discontinued on 02/03/2021 related to possibility of underlying urinary tract infection and culture pending 2 Acute hypoxic respiratory failure secondary to the above, patient is currently on BiPAP support with pressures of 16 over 6 and an FiO2 of 100% 3 Acute kidney injury related to intravascular volume depletion and dehydration 4 Acute hypochloremic hyponatremia, improved 5 Previous history of DVT on Coumadin, with today's INR of 3.3 6 Obesity with BMI of 46.7 kg/m 7 Chronic back pain 8 History of COPD/asthma 9 Previous history of pancreatitis 10 Hypertension 11 Acute urinary tract infection, patient will be started on Rocephin, urine culture is pending Plan: The patient was seen and evaluated He spoke with Dr. Shah and is adamant about not going on life support Requesting a DO NOT RESUSCITATE/DO NOT INTUBATE CODE STATUS Will continue with full supportive care Continue BiPAP at 16/6 and 100% FiO2 Titrate the FiO2 as tolerated Continue warfarin, vitamin supplements, Decadron Urine culture pending, on ceftriaxone Prognosis is poor We will continue to follow and make further recommendations based on his clinical status I, the cosigning physician, performed a history & physical examination of the patient. Lungs sounds are coarse bibasilar crackles. Maintaining good O2 saturations in the 80s on 100% FiO2 via the BiPAP 16/6. I discussed the assessment and plan of care with my nurse practitioner, Amanda Mcknight. I attest to the above note as dictated by her.
[2021-02-04] MEDS: CHOLECALCIFEROL 25 MCG (1000 IU) TABLET PO SCH (11:57)
[2021-02-04] MEDS: GABAPENTIN 400 MG CAP PO SCH ×2 (11:57→21:19)
[2021-02-04] MEDS: ASCORBIC ACID 500 MG TAB PO SCH (11:57)
[2021-02-04] MEDS ORDERED: WARFARIN 5 MG TAB PO SCH (18:00)
[2021-02-04] MEDS ORDERED: WARFARIN 0.5 MG TAB PO ONE (18:00)
[2021-02-04] MEDS: CYCLOBENZAPRINE 10 MG TAB PO PRN (21:32)
[2021-02-05] MEDS: LORazepam 2 MG/ML INJ IV PRN ×4 (06:44→18:06)
[2021-02-05 08:14] LABS: INR 4.8 (<1.2); Prothrombin Time 46.6 sec (9.0-12.0)
[2021-02-05] MEDS: ALBUTEROL HFA INHALER INHALATION SCH ×4 (09:06→19:59)
[2021-02-05] MEDS: DEXAMETHASONE SOD PHOSPHATE 10 MG/ML 1 ML VIAL IVP SCH (09:32)
[2021-02-05] MEDS: ZINC SULFATE 220 MG CAP PO SCH (13:15)
[2021-02-05] MEDS: CHOLECALCIFEROL 25 MCG (1000 IU) TABLET PO SCH (13:15)
[2021-02-05] MEDS: ASCORBIC ACID 500 MG TAB PO SCH (13:15)
[2021-02-05] MEDS: LISINOPRIL-HCTZ 10-12.5 MG 1 EACH TAB PO SCH ×2 (13:15→21:43)
[2021-02-05] MEDS: GABAPENTIN 400 MG CAP PO SCH ×2 (13:15→21:43)
[2021-02-05] MEDS: allopurinoL 300 MG TAB PO SCH ×2 (13:15→21:43)
[2021-02-05] MEDS: CYCLOBENZAPRINE 10 MG TAB PO PRN (13:19)
[2021-02-05] MEDS ORDERED: MORPHINE SULFATE 2 MG/ML SYRINGE IVP PRN (15:44)
--- NOTE | 2021-02-05 16:00 | P.PN ---
Subjective Progress Note Date: 02/05/21 Principal diagnosis: Dyspnea, pneumonia 61-year-old male patient, presented to the emergency department because of worsening shortness of breath and fatigue and weakness. He has several family members in his household tested positive for COVID 19. The patient himself is not vaccinated. His symptoms started approximately 5 or 6 days ago. He progressively became more short of breath and the patient presented to the emergency department very short of breath, hypoxic, initial pulse ox was 67% on room air oxygen. He was afebrile and he was tachycardic. His EKG showed normal sinus rhythm, sinus tachycardia, white cell count was at 7.6 with a hemoglobin of 15.9, he sodium level was 126, he had an acute kidney injury with a BUN of 65 with a creatinine of 1.8, the patient immediately checked positive for COVID 19. Lactic acid level was at 1.9. The patient was initially placed on 100% nonrebreather facemask. It improved his oxygen saturation. We are the process of switching this patient to a combination of Airvo and 100% on a beta facemasks pH chest x-ray shows some elevation of the right hemidiaphragm. The patient is morbidly obese with a BMI of 46.7. The chest x-ray also showed diffuse bilateral pulmonary infiltrates consistent with COVID 19 related pneumonia. The patient is started on steroids. inflammatory markers are still pending for now. Comorbid conditions include COPD/asthma, previous history of DVT, previous history of pancreatitis, hypertension. On 02/03/2021 patient seen in follow-up in the emergency department, he remains on BiPAP support with pressures of 16 and 6 and FiO2 of 100%, remains dyspneic, tachypneic, easily desaturates when the mask is removed to receive sips of water and oral medications. He is awake and alert, oriented 3. Answers questions appropriately. Afebrile, no completes of chest discomfort, occasional cough. Symptoms have been reviewed, CBC was unremarkable, lymphocyte count is stable at 0.44. Patient is on Coumadin, his INR today is 2.0, his d-dimer yesterday was 1.16, today sodium is improving and is up to 120, potassium is 4.3, chloride is 91, BUN is 60, creatinine is 1.8., His inflammatory markers are improving, his LDH is down to 893, CRP is still pending, his pro-calcitonin level is elevated at 0.69 suggesting possibility of underlying gastrointestinal infection, urinalysis is suggestive of acute urinary tract infection, urine culture has been sent and pending at this time. Rocephin has been added for empiric antibiotic coverage, patient is on Decadron 6 mg daily, he is on Coumadin as mentioned above, and he is receiving IV fluids with 0.9 normal saline at a rate of 75 per hour, he is on vitamin C, D and zinc. His chest x-ray from yesterday shows diffuse residual coarsening of moderate patchy airspace opacities bilaterally. On 02/05/2021 patient seen in follow-up on selective care unit, patient is currently on BiPAP with FiO2 100%, he is very restless, he frequently removes the tubing, becomes more short of breath, he desaturates, he has required lorazepam 1 mg every 4 hours for anxiety. He is currently on Decadron 6 more gram daily, he is on empiric antibiotics in the form of ceftriaxone, he is on Coumadin, and his INR today is 4.8, the rest of his lab work is still pending for today. His urinalysis showed possibility of urinary tract infection, urine culture not show any growth. No fever or chills. His last chest x-ray was done 2 days ago showing diffuse residual coarsening and moderate patchy airspace opacities bilaterally. There is chronic elevation of the right hemidiaphragm. His last set of inflammatory markers was on 02/03/2021, but noted improvements in his inflammatory markers. Objective - Vital Signs Vital signs: Vital Signs Temp 98.5 F 02/05/21 12:00 Pulse 115 H 02/05/21 14:00 Resp 24 02/05/21 14:00 BP 120/77 02/05/21 12:00 Pulse Ox 90 L 02/05/21 12:00 Intake & Output 02/04/21 02/05/21 02/05/21 18:59 06:59 18:59 Intake Total 0 Output Total 1075 600 Balance 0 -1075 -600 Weight 165.108 kg Intake: Oral 0 Output: Urine 1075 600 Uretheral (García) 600 Other: Voiding Method Indwelling Catheter Indwelling Catheter - Exam GENERAL EXAM: Alert, morbidly obese 60-year-old white male tachypneic, dyspneic, 60-year-old white male, on BiPAP support with pressures of 16 and 6 and FiO2 of 100%, restless, confused, repeatedly disconnecting tubing from the BiPAP HEAD: Normocephalic/atraumatic. EYES: Normal reaction of pupils, equal size. Conjunctiva pink, sclera white. NOSE: Clear with pink turbinates. THROAT: No erythema or exudates. NECK: No masses, no JVD, no thyroid enlargement, no adenopathy. CHEST: No chest wall deformity. Symmetrical expansion. LUNGS: Equal air entry with bibasilar crackles CVS: Regular rate and rhythm, normal S1 and S2, no gallops, no murmurs, no rubs ABDOMEN: Soft, nontender. No hepatosplenomegaly, normal bowel sounds, no guarding or rigidity. EXTREMITIES: No clubbing, 1+ lower extremity edema no cyanosis, 2+ pulses and upper and lower extremities. MUSCULOSKELETAL: Muscle strength and tone normal. SPINE: No scoliosis or deformity SKIN: No rashes CENTRAL NERVOUS SYSTEM: Alert and oriented -2. No focal deficits, tone is normal in all 4 extremities. PSYCHIATRIC: Alert and oriented -2. Appropriate affect. Intact judgment and insight. - Labs CBC & Chem 7: 02/04/21 07:57 02/04/21 07:57 Labs: Abnormal Lab Results - Last 24 Hours (Table) 02/05/21 Range/Units 07:51 PT 46.6 H (9.0-12.0) sec INR 4.8 H (<1.2) Microbiology - Last 24 Hours (Table) 02/03/21 03:31 Urine Culture - Final Urine,Voided Assessment and Plan Plan: Assessment: #1. Acute COVID-19, patient presented with worsening shortness of breath of 5 days duration, and she was not a candidate for Remdesivir related to severity of his hypoxia. Baricitinib was started on 02/02/2021 which will be discontinued today on 02/03/2021 related to possibility of underlying urinary tract infection #2. Acute hypoxic respiratory failure secondary to the above, patient is currently on BiPAP support with pressures of 12 and 6 and an FiO2 of 100% #3. Acute kidney injury related to intravascular volume depletion and dehydration #4. Acute hypochloremic hyponatremia, improved #5. Previous history of DVT on Coumadin, with today's INR of 2.0 6. Obesity with BMI of 46.7 kg/m #7. Chronic back pain #8. History of COPD/asthma #9. Previous history of pancreatitis #10. Hypertension #11. Acute urinary tract infection, patient will be started on Rocephin, urine culture is pending Plan: Continue BiPAP support at current pressures Provide a safety companion to prevent the patient from removing his mask We will add morphine 2 mg IV push every 4 hours for breathlessness, and anxiety Continue Ativan Continue current dose Decadron Patient is on Coumadin, today's INR was supratherapeutic we'll hold Coumadin tonight Follow-up chest x-ray inflammatory markers in the morning Overall prognosis is quite guarded CODE STATUS is DO NOT RESUSCITATE We'll continue supportive medical treatment I performed a history & physical examination of the patient and discussed their management with my nurse practitioner, Dari Salas. I reviewed the nurse practitioner's note and agree with the documented findings and plan of care. Lung sounds are positive for diminished with crackles throughout the lung griffiths. The findings and the impression was discussed with the patient. I a ttest to the documentation by the nurse practitioner. Time with Patient: Less than 30
[2021-02-05] MEDS ORDERED: WARFARIN 0.5 MG TAB PO ONE (18:00)
[2021-02-05 18:03] LABS: Glucose,Whole Blood 145 mg/dL (75-99)
[2021-02-05] MEDS ORDERED: HALOPERIDOL LACTATE 5 MG/ML 1 ML VIAL IM STA (18:28)
--- NOTE | 2021-02-05 18:39 | P.PN ---
Progress Note - Text Responded to epidural response call for this patient from the floor. Patient was seen and examined and chart was reviewed. Patient is 60-year-old male admitted for hypoxic respiratory failure and COVID- 19 pneumonia. His respiratory status deteriorated since admission he is presently on the BiPAP FiO2 100%. He's been tachypneic for the whole day occasionally restless and removing BiPAP. Pulmonary service evaluated the patient today no further changes made regarding his treatment and ordered morphine when necessary agitation. On my evaluation patient was tachypneic. Otherwise he was calm. He would open eyes when called by name. He denied any particular chest pain discomfort abdominal pain or any other complaints. Vital signs reviewed. Discussed with nursing on the floor and the respiratory therapy technician. Patient appears comfortable me, his eyes when called by name follow simple commands Head and neck: No facial asymmetry BiPAP and place on icteric sclera neck short and thick no neck pulsations or masses noted Lungs: He is tachypneic, appears calm otherwise, he has breath sounds present bilaterally I do not appreciate any wheezing or rhonchi or crackles Cardiovascular: Tachycardic and regular and rate S1-S2 Abdomen: Obese does not appear distended or tender soft Extremities: He does not have any peripheral edema, no cyanosis, warm well perfused Neurological: following simple commands moving all 4 extremities no facial asymmetry no ankle clonus; no facial asymmetry, pupils are round and reactive to light symmetrical eyes are in midline no eye deviation Assessment and plan #Acute hypoxic respiratory failure #COVID-19 pneumonitis #History of DVT, Anticoagulated on Coumadin which was supratherapeutic today #COPD with exacerbation #Obesity #Hypertension Patient is DO NOT RESUSCITATE status. He is on maximal BiPAP setting and restless At this time we will obtain stat chest x-ray, ABG, EKG, troponin His morning labs were reviewed He is INR is quite elevated He would benefit from the CT of the hip however his neurological findings and will see any focal changes and he is very high risk and unstable for the CT machine at this time After labs, chest x-ray and ABG obtained I will have my partner no tenderness to follow up on these results Patient prognosis is extremely poor, condition is critical likely terminal. Patient will most likely need to be placed on the ventilator however he is in DNR/DNI status. Abdomen morphine were ordered by pulmonary service. May consider placing bilateral upper extremities soft restraints to prevent removal of BiPAP. Patient will most likely benefit from hospice/comfort care measures I asked the nurse to page primary service patient is attending notified them of patient condition and have them evaluated the patient and as per their discretion consider restraints and discussion with the family about comfort care measures/hospice.
--- NOTE | 2021-02-05 19:06 | XR ---
EXAMINATION TYPE: XR chest 1V portable DATE OF EXAM: 02/05/2021 COMPARISON: 02/02/2021 HISTORY: Short of breath TECHNIQUE: Single view FINDINGS: There is elevated right diaphragm. There is moderate interstitial and airspace infiltrate a nd atelectasis in the right lung. Left lung shows some mild interstitial infiltrate. Heart size is no rmal. IMPRESSION: There is increasing infiltrate and atelectasis in the right lung compared to recent exam. There is improvement in the infiltrate in the left lung compared to recent exam.
[2021-02-05 19:35] LABS: HCT 49.1 % (39.0-53.0); HGB 16.2 gm/dL (13.0-17.5); Mean Platelet Volume 7.7; Platelet Count 170 k/uL (150-450); RBC 5.06 m/uL (4.30-5.90); RDW 13.7 % (11.5-15.5); WBC 16.1 k/uL (3.8-10.6)
[2021-02-05 19:42] LABS: Calcium 8.3 mg/dL (8.4-10.2); Potassium 4.5 mmol/L (3.5-5.1)
[2021-02-05] MEDS ORDERED: DEXMEDETOMIDINE/0.9% NACL(PMX) 400 MCG in EMPTY BAG 1 BAG IV SCH (20:00)
[2021-02-05 20:12] LABS: Glucose,Whole Blood 163 mg/dL (75-99)
[2021-02-05] MEDS ORDERED: CISATRACURIUM 2 MG/ML 5 ML VIAL IV ONE (21:12)
[2021-02-05] MEDS: fentaNYL (PF). 1,000 MCG in SODIUM CHLORIDE 0.9% 80 ML IV SCH (21:14)
[2021-02-05] MEDS: CISATRACURIUM 200 MG in SODIUM CHLORIDE 0.9% 180 ML IV SCH (21:15)
[2021-02-05] MEDS ORDERED: NOREPINEPHRIN 4 MG-0.9% NS PMX 4 MG/250 ML ML IV ONE ×2 (21:20→21:22)
[2021-02-05] MEDS ORDERED: EPINEPHrine 10 ML SYRINGE (0.1 MG/ML) ONE (21:20)
[2021-02-05 21:28] LABS: ABG Base Excess 6.5 mmol/L; ABG HCO3 31 mmol/L (21-25); ABG Oxygen Saturation 99.5 % (94-97); ABG PCO2 48 mmHg (35-45); ABG PH 7.42 (7.35-7.45); ABG PO2 174 mmHg (83-108); ABG TCO2 33 mmol/L (19-24); Allen Test Performed? Yes
[2021-02-05] MEDS: NOREPINEPHRINE 4 MG in SODIUM CHLORIDE 0.9% 250 ML IV SCH (21:30)
[2021-02-05] MEDS ORDERED: SODIUM CHLORIDE 0.9% 1,000 ML IV ONE (21:41)
[2021-02-05] MEDS: SODIUM CHLORIDE 0.9% 1,000 ML IV SCH (21:42)
--- NOTE | 2021-02-05 21:45 | XR ---
EXAMINATION TYPE: XR chest 1V portable DATE OF EXAM: 02/05/2021 COMPARISON: Today HISTORY: Short of breath TECHNIQUE: Single view FINDINGS: The endotracheal tube is 5 cm from the arden. There is pulmonary interstitial and airspace edema. There is slight elevated right diaphragm. Bony thorax is intact. There are chest leads. IMPRESSION: There is pulmonary interstitial and airspace edema slightly worse on the left side and im proved on the right side compared to the exam 3 hours ago.
[2021-02-05] MEDS: CHLORHEXIDINE GLUCONATE 15 ML CUP MUCOUS MEM SCH (22:36)
[2021-02-05] MEDS: PANTOPRAZOLE 40 MG/10 ML VIAL IVP SCH (22:36)
--- NOTE | 2021-02-06 00:03 | P.PN ---
Subjective Progress Note Date: 02/05/21 Principal diagnosis: Acute hypoxic respiratory failure secondary to coronary 19 pneumonia requiring BiPAP. Patient is 60-year-old male with a known history of asthma/COPD, history of DVT, chronic low back pain, osteoarthritis and morbid obesity with BMI 46.7 presents to ER with complaints of generalized weakness and fatigue and worsening shortness of breath and exertional dyspnea. Patient states that he has been having symptoms for the past 5-6 days and his and other family members were also tested positive for covid 19 infection. Patient has been having generalized weakness and fatigue. No complaints of chest pain. Does have cough without any sputum production. No nausea vomiting or abdominal pain or diarrhea. Chest x-ray showed diffuse residual coarsening and moderate patchy airspace opacities bilaterally. Findings may represent Covid 19 pneumonia. EKG showed normal sinus rhythm Laboratory data showed WBC 7.6 hemoglobin 10.9 and platelets 167 lymphocytes 0.4 INR 1.9 and d-dimer is 1.16 Sodium 126 potassium 4.8 chloride 89 BUN 6 T5 and creatinine 1.85 calcium 7.9 AST 219 ALT 55 alk phos 63 ALT is 2347 and CRP 24.0 Procalcitonin 0.69, Covid 19 PCR detected. Patient is not vaccinated. 02/03/2021 Patient is currently in the emergency room awaiting for self care unit transfer. Patient is currently on BiPAP 16 x 6 with 100% FiO2. Patient is still having shortness of breath and he appears to be in mild distress and unable to tolerate BiPAP. Otherwise patient has been afebrile. Currently being continued on dexamethasone, warfarin dosing and multivitamins. Patient was started on ceftriaxone for possible urinary tract infection. Laboratory data showed sodium 128 potassium 4.3 chloride 91 BUN 60 and creatinine 1.8 LDH 893 and CRP 21.9 No complaints of chest pain. Patient is awake alert and oriented 3. Pulmonary is on board. 02/04/2021 Patient remains in the emergency department. Currently on BiPAP with 100% FiO2. Patient is saturating mid 80s. Sitting up in the bed. Still tachypneic and anxious. Awake alert and oriented. Laboratory showed WBC 11.2 hemoglobin 15.7 and platelets 202 lymphocytes 0.4 Sodium 131 potassium 4.3 chloride 94 bicarb is 28 BUN 75 creatinine 1.42. Urine culture is pending. Patient is being current on ceftriaxone. Patient is being continued on dexamethasone, Coumadin and multivitamins. Pulmonary is following. 02/05/2021 Patient is on BiPAP with FiO2 100%. Patient is restless and tachypneic. Pulli ng out tubes. Oxygen saturations around 82% to 90% while on BiPAP. Patient has been afebrile. Currently being continued on dexamethasone and Coumadin dosing. INR is 4.8 today. Laboratory data showed WBC 16.1 hemoglobin 16.1 platelets 170 BUN 77 creatinine 1.16 and troponin 0 0.042. Patient is also being current ceftriaxone for acute urinary tract infection. Urine culture showed no growth. Pulmonary is following. Patient does not want to get intubated. Current medications reviewed. Objective - Vital Signs Vital signs: Vital Signs Temp 98.5 F 02/05/21 12:00 Pulse 121 H 02/05/21 16:00 Resp 54 H 02/05/21 16:00 BP 133/61 02/05/21 16:00 Pulse Ox 83 L 02/05/21 16:00 Intake & Output 02/05/21 02/05/21 02/06/21 06:59 18:59 06:59 Intake Total 9.356 Output Total 1075 600 Balance -1075 -600 9.356 Weight 165.108 kg Intake: Intake, IV Titration 9.356 Amount Dexmedetomidine/0.9% NaCl 9.356 (Pmx) 400 mcg In Empty Bag 1 bag @ 0.2 MCG/KG/HR 8.255 mls/hr IV .Q12H7M [facility] Rx#:[id number] Output: Urine 1075 600 Uretheral (García) 600 Other: Voiding Method Indwelling Catheter Indwelling Catheter - Exam PHYSICAL EXAMINATION: Patient is lying in the bed Anxious and appears to be in mild distress.. Morbidly obese.. HEENT: Normocephalic. Neck is supple. Pupils reactive. Nostrils clear. Oral cavity is moist. Neck reveals no JVD, carotid bruits, or thyromegaly. CHEST EXAMINATION: Trachea is central. Symmetrical expansion. Bilateral coarse breath sounds and diminished sounds... CARDIAC: Normal S1, S2 with no gallops. No murmurs ABDOMEN: Soft. Bowel sounds normal. No organomegaly. No abdominal bruits. Extremities: reveal no edema. No clubbing or cyanosis Neurologically awake, alert, oriented x3 with well-coordinated movements. No focal deficits noted Skin: No rash or skin lesions. Psychiatric: Coperative. Nonsuicidal Musculoskeletal: No joint swelling or deformity. Normal range of motion. - Labs CBC & Chem 7: 02/05/21 19:22 02/05/21 19:22 Labs: Abnormal Lab Results - Last 24 Hours (Table) 02/05/21 02/05/21 02/05/21 Range/Units 07:51 18:00 19:22 WBC 16.1 H (3.8-10.6) k/uL PT 46.6 H (9.0-12.0) sec INR 4.8 H (<1.2) BUN (9-20) mg/dL Glucose (74-99) mg/dL POC Glucose (mg/dL) 145 H (75-99) mg/dL Calcium (8.4-10.2) mg/dL Troponin I (0.000-0.034) ng/mL 02/05/21 02/05/21 02/05/21 Range/Units 19:22 19:22 20:10 WBC (3.8-10.6) k/uL PT (9.0-12.0) sec INR (<1.2) BUN 77 H (9-20) mg/dL Glucose 155 H (74-99) mg/dL POC Glucose (mg/dL) 163 H (75-99) mg/dL Calcium 8.3 L (8.4-10.2) mg/dL Troponin I 0.042 H* (0.000-0.034) ng/mL Microbiology - Last 24 Hours (Table) 02/03/21 03:31 Urine Culture - Final Urine,Voided Assessment and Plan Assessment: Acute hypoxic respiratory failure due to code 19 pneumonia. initillay Requiring 100% nonrebreather . Currently on BiPAP with 100% FiO2. Acute covid 19 19 pneumonia. Patient has been symptoms of weakness tiredness for the past 5-6 days. Not vaccinated. Hypovolemic hyponatremia Acute UTI Acute kidney injury with creatinine level I.85 on admission Previous history of DVT currently on anticoagulation with Coumadin. INR 1.9 Morbid obesity with BMI 46.7 Chronic low back pain COPD/asthma Osteoarthritis DVT prophylaxis patient is already on Coumadin. Plan: Patient will be continued on oxygen supplementation. Currently on BiPAP with 100% FiO2. Patient was given a dose of morphine. Patient does have elevated inflammatory markers. Continue with Coumadin dosing. Continue the home medications and pain management. Added multivitamins, vitamin C, D and zinc sulfate. Due to elevated pro calcitonin level. UA was ordered. Follow up closely. Monitor BMP and CBC. Pulmonary is on board. Prognosis is guarded at this time. Time with Patient: Greater than 30
--- NOTE | 2021-02-06 00:05 | P.PN ---
Subjective Progress Note Date: 02/04/21 Principal diagnosis: Acute hypoxic respiratory failure secondary to coronary 19 pneumonia requiring BiPAP. Patient is 60-year-old male with a known history of asthma/COPD, history of DVT, chronic low back pain, osteoarthritis and morbid obesity with BMI 46.7 presents to ER with complaints of generalized weakness and fatigue and worsening shortness of breath and exertional dyspnea. Patient states that he has been having symptoms for the past 5-6 days and his and other family members were also tested positive for covid 19 infection. Patient has been having generalized weakness and fatigue. No complaints of chest pain. Does have cough without any sputum production. No nausea vomiting or abdominal pain or diarrhea. Chest x-ray showed diffuse residual coarsening and moderate patchy airspace opacities bilaterally. Findings may represent Covid 19 pneumonia. EKG showed normal sinus rhythm Laboratory data showed WBC 7.6 hemoglobin 10.9 and platelets 167 lymphocytes 0.4 INR 1.9 and d-dimer is 1.16 Sodium 126 potassium 4.8 chloride 89 BUN 6 T5 and creatinine 1.85 calcium 7.9 AST 219 ALT 55 alk phos 63 ALT is 2347 and CRP 24.0 Procalcitonin 0.69, Covid 19 PCR detected. Patient is not vaccinated. 02/03/2021 Patient is currently in the emergency room awaiting for self care unit transfer. Patient is currently on BiPAP 16 x 6 with 100% FiO2. Patient is still having shortness of breath and he appears to be in mild distress and unable to tolerate BiPAP. Otherwise patient has been afebrile. Currently being continued on dexamethasone, warfarin dosing and multivitamins. Patient was started on ceftriaxone for possible urinary tract infection. Laboratory data showed sodium 128 potassium 4.3 chloride 91 BUN 60 and creatinine 1.8 LDH 893 and CRP 21.9 No complaints of chest pain. Patient is awake alert and oriented 3. Pulmonary is on board. 02/04/2021 Patient remains in the emergency department. Currently on BiPAP with 100% FiO2. Patient is saturating mid 80s. Sitting up in the bed. Still tachypneic and anxious. Awake alert and oriented. Laboratory showed WBC 11.2 hemoglobin 15.7 and platelets 202 lymphocytes 0.4 Sodium 131 potassium 4.3 chloride 94 bicarb is 28 BUN 75 creatinine 1.42. Urine culture is pending. Patient is being current on ceftriaxone. Patient is being continued on dexamethasone, Coumadin and multivitamins. Pulmonary is following. Current medications reviewed. Objective - Vital Signs Vital signs: Vital Signs Temp 97.8 F 02/04/21 02:12 Pulse 98 02/04/21 05:50 Resp 28 H 02/04/21 05:50 BP 116/73 02/04/21 05:50 Pulse Ox 88 L 02/04/21 08:33 Intake & Output 02/03/21 02/04/21 02/04/21 18:59 06:59 18:59 Weight 165.108 kg - Labs CBC & Chem 7: 02/05/21 19:22 02/05/21 19:22 Labs: Abnormal Lab Results - Last 24 Hours (Table) 02/03/21 02/04/21 02/04/21 Range/Units 04:35 05:45 07:57 WBC 11.2 H (3.8-10.6) k/uL Neutrophils # 10.1 H (1.3-7.7) k/uL Lymphocytes # 0.4 L (1.0-4.8) k/uL PT 31.4 H (9.0-12.0) sec INR 3.3 H (<1.2) Sodium (137-145) mmol/L Chloride (98-107) mmol/L BUN (9-20) mg/dL Creatinine (0.66-1.25) mg/dL Glucose (74-99) mg/dL Calcium (8.4-10.2) mg/dL AST (17-59) U/L ALT (4-49) U/L C-Reactive Protein 21.90 H (0.00-0.80) mg/dL Albumin (3.5-5.0) g/dL 02/04/21 Range/Units 07:57 WBC (3.8-10.6) k/uL Neutrophils # (1.3-7.7) k/uL Lymphocytes # (1.0-4.8) k/uL PT (9.0-12.0) sec INR (<1.2) Sodium 131 L (137-145) mmol/L Chloride 94 L (98-107) mmol/L BUN 75 H (9-20) mg/dL Creatinine 1.42 H (0.66-1.25) mg/dL Glucose 147 H (74-99) mg/dL Calcium 8.1 L (8.4-10.2) mg/dL AST 352 H (17-59) U/L ALT 83 H (4-49) U/L C-Reactive Protein (0.00-0.80) mg/dL Albumin 3.2 L (3.5-5.0) g/dL Microbiology - Last 24 Hours (Table) 02/03/21 03:31 Urine Culture - Preliminary Urine,Voided
[2021-02-06] MEDS: ARTIFICIAL TEARS-HYPROMELLOSE DROPS 15 ML BTL BOTH EYES SCH ×6 (00:51→21:12)
[2021-02-06] MEDS: SODIUM CHLORIDE 0.9% 1,000 ML IV SCH ×2 (00:54→12:52)
[2021-02-06] MEDS: fentaNYL (PF). 1,000 MCG in SODIUM CHLORIDE 0.9% 80 ML IV SCH ×3 (02:39→18:36)
[2021-02-06] MEDS: NOREPINEPHRINE 4 MG in SODIUM CHLORIDE 0.9% 250 ML IV SCH ×4 (03:59→17:04)
[2021-02-06 04:46] LABS: Basophils # (A) 0.1 k/uL (0-0.2); Basophils % (A) 0 %; Eosinophils % (A) 0 %; HCT 48.4 % (39.0-53.0); HGB 15.7 gm/dL (13.0-17.5); Lymphocytes # (A) 0.3 k/uL (1.0-4.8); Lymphocytes % (A) 2 %; MCH 31.9 pg (25.0-35.0); MCHC 32.5 g/dL (31.0-37.0); MCV 98.2 fL (80.0-100.0); Mean Platelet Volume 7.7; Monocytes # (A) 0.7 k/uL (0-1.0); Monocytes % (A) 3 %; Neutrophils # (A) 19.3 k/uL (1.3-7.7); Neutrophils % (A) 94 %; Platelet Count 173 k/uL (150-450); RBC 4.93 m/uL (4.30-5.90); RDW 14.3 % (11.5-15.5); WBC 20.7 k/uL (3.8-10.6)
[2021-02-06 04:56] LABS: Prothrombin Time 55.8 sec (9.0-12.0)
[2021-02-06 05:01] LABS: Albumin 2.8 g/dL (3.5-5.0); Potassium 4.6 mmol/L (3.5-5.1); Total Bilirubin 1.1 mg/dL (0.2-1.3); Total Protein 5.9 g/dL (6.3-8.2)
[2021-02-06 05:20] LABS: ABG Base Excess 3.4 mmol/L; ABG HCO3 29 mmol/L (21-25); ABG Oxygen Saturation 96.4 % (94-97); ABG PCO2 52 mmHg (35-45); ABG PH 7.36 (7.35-7.45); ABG PO2 86 mmHg (83-108); ABG TCO2 31 mmol/L (19-24); Allen Test Performed? Yes
[2021-02-06 05:21] LABS: INR 5.8 (<1.2)
[2021-02-06 05:50] LABS: C Reactive Protein 15.1 mg/dL (<1.0)
--- NOTE | 2021-02-06 08:35 | XR ---
EXAMINATION TYPE: XR chest 1V DATE OF EXAM: 02/06/2021 COMPARISON: 02/05/21 HISTORY: SOB, Follow Up FINDINGS: Indwelling tubes and catheters are unchanged. Patchy infiltrates throughout both lung griffiths no change. Stable appearance of the cardio-mediastinal structures at this time. IMPRESSION: 1. Patchy infiltrates throughout both lung griffiths no change. Clinical correlation and follow up unti l resolution is recommended.
[2021-02-06] MEDS: CISATRACURIUM 200 MG in SODIUM CHLORIDE 0.9% 180 ML IV SCH ×2 (09:06→21:41)
[2021-02-06] MEDS: PANTOPRAZOLE 40 MG/10 ML VIAL IVP SCH (09:08)
[2021-02-06] MEDS: CHLORHEXIDINE GLUCONATE 15 ML CUP MUCOUS MEM SCH ×2 (09:08→20:15)
[2021-02-06] MEDS: DEXAMETHASONE SOD PHOSPHATE 10 MG/ML 1 ML VIAL IVP SCH (09:08)
[2021-02-06] MEDS: CHOLECALCIFEROL 25 MCG (1000 IU) TABLET PO SCH (09:10)
[2021-02-06] MEDS: ASCORBIC ACID 500 MG TAB PO SCH (09:10)
[2021-02-06] MEDS: allopurinoL 300 MG TAB PO SCH ×2 (09:10→20:57)
[2021-02-06] MEDS: GABAPENTIN 400 MG CAP PO SCH ×2 (09:11→20:15)
[2021-02-06] MEDS: ZINC SULFATE 220 MG CAP PO SCH (09:11)
[2021-02-06] MEDS: LISINOPRIL-HCTZ 10-12.5 MG 1 EACH TAB PO SCH ×2 (09:11→20:12)
[2021-02-06] MEDS ORDERED: PHYTONADIONE 5 MG in SODIUM CHLORIDE 0.9% 50 ML IVPB STA (10:04)
--- NOTE | 2021-02-06 12:43 | P.PN ---
Subjective Progress Note Date: 02/06/21 Principal diagnosis: Acute hypoxic respiratory failure secondary to COVID-19 pneumonia requiring intubation and mechanical ventilation on 01/06/2021 61-year-old male patient, presented to the emergency department because of worsening shortness of breath and fatigue and weakness. He has several family members in his household tested positive for COVID 19. The patient himself is not vaccinated. His symptoms started approximately 5 or 6 days ago. He progressively became more short of breath and the patient presented to the emergency department very short of breath, hypoxic, initial pulse ox was 67% on room air oxygen. He was afebrile and he was tachycardic. His EKG showed normal sinus rhythm, sinus tachycardia, white cell count was at 7.6 with a hemoglobin of 15.9, he sodium level was 126, he had an acute kidney injury with a BUN of 65 with a creatinine of 1.8, the patient immediately checked positive for COVID 19. Lactic acid level was at 1.9. The patient was initially placed on 100% nonrebreather facemask. It improved his oxygen saturation. We are the process of switching this patient to a combination of Airvo and 100% on a beta facemasks pH chest x-ray shows some elevation of the right hemidiaphragm. The patient is morbidly obese with a BMI of 46.7. The chest x-ray also showed diffuse bilateral pulmonary infiltrates consistent with COVID 19 related pneumonia. The patient is started on steroids. inflammatory markers are still pending for now. Comorbid conditions include COPD/asthma, previous history of DVT, previous history of pancreatitis, hypertension. On 02/03/2021 patient seen in follow-up in the emergency department, he remains on BiPAP support with pressures of 16 and 6 and FiO2 of 100%, remains dyspneic, tachypneic, easily desaturates when the mask is removed to receive sips of water and oral medications. He is awake and alert, oriented 3. Answers questions appropriately. Afebrile, no completes of chest discomfort, occasional cough. Symptoms have been reviewed, CBC was unremarkable, lymphocyte count is stable at 0.44. Patient is on Coumadin, his INR today is 2.0, his d-dimer yesterday was 1.16, today sodium is improving and is up to 120, potassium is 4.3, chloride is 91, BUN is 60, creatinine is 1.8., His inflammatory markers are improving, his LDH is down to 893, CRP is still pending, his pro-calcitonin level is elevated at 0.69 suggesting possibility of underlying gastrointestinal infection, urinalysis is suggestive of acute urinary tract infection, urine culture has been sent and pending at this time. Rocephin has been added for empiric antibiotic coverage, patient is on Decadron 6 mg daily, he is on Coumadin as mentioned above, and he is receiving IV fluids with 0.9 normal saline at a rate of 75 per hour, he is on vitamin C, D and zinc. His chest x-ray from yesterday shows diffuse residual coarsening of moderate patchy airspace opacities bilaterally. On 02/05/2021 patient seen in follow-up on selective care unit, patient is currently on BiPAP with FiO2 100%, he is very restless, he frequently removes the tubing, becomes more short of breath, he desaturates, he has required lorazepam 1 mg every 4 hours for anxiety. He is currently on Decadron 6 more gram daily, he is on empiric antibiotics in the form of ceftriaxone, he is on Coumadin, and his INR today is 4.8, the rest of his lab work is still pending for today. His urinalysis showed possibility of urinary tract infection, urine culture not show any growth. No fever or chills. His last chest x-ray was done 2 days ago showing diffuse residual coarsening and moderate patchy airspace opacities bilaterally. There is chronic elevation of the right hemidiaphragm. His last set of inflammatory markers was on 02/03/2021, but noted improvements in his inflammatory markers. Reevaluated today on 02/06/2021, patient was transferred to the ICU yesterday, mostly because his pulmonary status continued to deteriorate, patient remained hypoxic, continued to remove his BiPAP mask, transferred into the ICU, placed on Precedex initially, and kept him on BiPAP, however patient continued to saturate, and I was notified about the nurses that his clinical status is getting worse, recommended immediate intubation and mechanical ventilation. Patient is now intubated, mechanically ventilated. He is on assist control rate of 30 tidal volume 450 FiO2 60% and PEEP of 14. ABG showed a pO2 of 86 pCO2 of 52 pH of 7.36, patient remains on multiple drips including propofol at 40 mcg/kg/m, fentanyl 1 mcg/kg/h Nimbex 1.5 mcg/kg/m. Patient is also requiring norepinephrine at 0.1 mcg/kg/m. LDH today is extremely high over 3000. WBC count is elevated at 20.7 hemoglobin 15.7 his electrolytes are normal however his renal profile showed a BUN of 77 creatinine 1.47 chest x-ray showed patchy bilateral infiltrates, slight improvement compared to chest x-ray prior to intubation. His INR today is 5.8, hence I plan to reverse his INR are at least give him fresh frozen plasma and vitamin K in order to safely place a central line and arterial line in this patient. Objective - Vital Signs Vital signs: Vital Signs Temp 99.5 F 02/06/21 08:00 Pulse 90 02/06/21 09:30 Resp 30 H 02/06/21 09:30 BP 115/70 02/06/21 09:30 Pulse Ox 93 L 02/06/21 09:30 Intake & Output 02/05/21 02/06/21 02/06/21 18:59 06:59 18:59 Intake Total 2427.722 926.917 Output Total 600 955 50 Balance -600 1472.722 876.917 Weight 165.108 kg 160.1 kg 160.1 kg Intake: IV 1600 75 Sodium Chloride 0.9% 1, 1600 75 000 ml @ 75 mls/hr IV . [id number] [facility] Rx#:[id number] Intake, IV Titration 827.722 851.917 Amount Cisatracurium 200 mg In 137.122 43.917 Sodium Chloride 0.9% 180 ml @ 1 MCG/KG/MIN 9.906 mls/hr IV .[id number] [facility] Rx #:[id number] Dexmedetomidine/0.9% NaCl 9.356 (Pmx) 400 mcg In Empty Bag 1 bag @ 0.2 MCG/KG/HR 8.255 mls/hr IV .Q12H7M [facility] Rx#:[id number] Norepinephrine 4 mg In 254.000 508.000 Sodium Chloride 0.9% 250 ml @ 0.05 MCG/KG/MIN 31. 453 mls/hr IV .Q8H5M [facility] Rx#:[id number] fentaNYL (PF). 1,000 mcg 84.756 100 In Sodium Chloride 0.9% 80 ml @ 0.5 MCG/KG/HR 8. 255 mls/hr IV .Q12H7M [facility] Rx#:[id number] propofoL 1,000 mg In 342.488 200 Empty Bag 1 bag @ Titrate IV .Q0M [facility] Rx#: [id number] Output: Urine 600 955 50 Uretheral (García) 600 Other: Voiding Method Indwelling Catheter Indwelling Catheter ABP, PAP, CO, CI - Last Documented Arterial Blood Pressure 116/55 - Exam GENERAL EXAM: Revealed a 60-year-old white male morbidly obese intubated and mechanically ventilated. HEAD: Normocephalic/atraumatic. HEENT: PERRLA, EOMI, nonicteric, no neck masses, moist mucous membranes, endotra cheal tube and orogastric tube are intact. CHEST: No chest wall deformity. Symmetrical expansion. LUNGS: Records at the bases bilaterally. CVS: Regular rate and rhythm, normal S1 and S2, no gallops, no murmurs, no rubs ABDOMEN: Soft, nontender. No hepatosplenomegaly, normal bowel sounds, no guard ing or rigidity. EXTREMITIES: No clubbing, 1+ lower extremity edema no cyanosis, 2+ pulses and upper and lower extremities. With venous stasis changes noted in lower extremities. SKIN: No rashes, except for chronic venous stasis changes and brawny discoloration of the lower extremities. CENTRAL NERVOUS SYSTEM: Cannot assess, patient is sedated and paralyzed. PSYCHIATRIC: Cannot assess patient is sedated and paralyzed. - Labs CBC & Chem 7: 02/06/21 04:30 02/06/21 04:30 Labs: Abnormal Lab Results - Last 24 Hours (Table) 02/05/21 02/05/21 02/05/21 Range/Units 18:00 19:22 19:22 WBC 16.1 H (3.8-10.6) k/uL Neutrophils # (1.3-7.7) k/uL Lymphocytes # (1.0-4.8) k/uL PT (9.0-12.0) sec INR (<1.2) ABG pCO2 (35-45) mmHg ABG pO2 (83-108) mmHg ABG HCO3 (21-25) mmol/L ABG Total CO2 (19-24) mmol/L ABG O2 Saturation (94-97) % BUN 77 H (9-20) mg/dL Creatinine (0.66-1.25) mg/dL Glucose 155 H (74-99) mg/dL POC Glucose (mg/dL) 145 H (75-99) mg/dL Calcium 8.3 L (8.4-10.2) mg/dL AST (17-59) U/L ALT (4-49) U/L Lactate Dehydrogenase (313-618) U/L Troponin I (0.000-0.034) ng/mL C-Reactive Protein (<1.0) mg/dL Total Protein (6.3-8.2) g/dL Albumin (3.5-5.0) g/dL 02/05/21 02/05/21 02/05/21 Range/Units 19:22 20:10 21:21 WBC (3.8-10.6) k/uL Neutrophils # (1.3-7.7) k/uL Lymphocytes # (1.0-4.8) k/uL PT (9.0-12.0) sec INR (<1.2) ABG pCO2 48 H (35-45) mmHg ABG pO2 174 H (83-108) mmHg ABG HCO3 31 H (21-25) mmol/L ABG Total CO2 33 H (19-24) mmol/L ABG O2 Saturation 99.5 H (94-97) % BUN (9-20) mg/dL Creatinine (0.66-1.25) mg/dL Glucose (74-99) mg/dL POC Glucose (mg/dL) 163 H (75-99) mg/dL Calcium (8.4-10.2) mg/dL AST (17-59) U/L ALT (4-49) U/L Lactate Dehydrogenase (313-618) U/L Troponin I 0.042 H* (0.000-0.034) ng/mL C-Reactive Protein (<1.0) mg/dL Total Protein (6.3-8.2) g/dL Albumin (3.5-5.0) g/dL 02/06/21 02/06/21 02/06/21 Range/Units 04:30 04:30 04:30 WBC 20.7 H (3.8-10.6) k/uL Neutrophils # 19.3 H (1.3-7.7) k/uL Lymphocytes # 0.3 L (1.0-4.8) k/uL PT 55.8 H (9.0-12.0) sec INR 5.8 H* (<1.2) ABG pCO2 (35-45) mmHg ABG pO2 (83-108) mmHg ABG HCO3 (21-25) mmol/L ABG Total CO2 (19-24) mmol/L ABG O2 Saturation (94-97) % BUN 77 H (9-20) mg/dL Creatinine 1.43 H (0.66-1.25) mg/dL Glucose 188 H (74-99) mg/dL POC Glucose (mg/dL) (75-99) mg/dL Calcium 8.0 L (8.4-10.2) mg/dL AST 262 H (17-59) U/L ALT 93 H (4-49) U/L Lactate Dehydrogenase 3075 H (313-618) U/L Troponin I (0.000-0.034) ng/mL C-Reactive Protein 15.1 H (<1.0) mg/dL Total Protein 5.9 L (6.3-8.2) g/dL Albumin 2.8 L (3.5-5.0) g/dL 02/06/21 Range/Units 05:15 WBC (3.8-10.6) k/uL Neutrophils # (1.3-7.7) k/uL Lymphocytes # (1.0-4.8) k/uL PT (9.0-12.0) sec INR (<1.2) ABG pCO2 52 H (35-45) mmHg ABG pO2 (83-108) mmHg ABG HCO3 29 H (21-25) mmol/L ABG Total CO2 31 H (19-24) mmol/L ABG O2 Saturation (94-97) % BUN (9-20) mg/dL Creatinine (0.66-1.25) mg/dL Glucose (74-99) mg/dL POC Glucose (mg/dL) (75-99) mg/dL Calcium (8.4-10.2) mg/dL AST (17-59) U/L ALT (4-49) U/L Lactate Dehydrogenase (313-618) U/L Troponin I (0.000-0.034) ng/mL C-Reactive Protein (<1.0) mg/dL Total Protein (6.3-8.2) g/dL Albumin (3.5-5.0) g/dL Assessment and Plan Assessment: #1. Acute COVID-19, patient presented with worsening shortness of breath of 5 days duration, and she was not a candidate for Remdesivir related to severity of his hypoxia. Baricitinib was started on 02/02/2021 which will be discontinued today on 02/03/2021 related to possibility of underlying urinary tract infection. Patient was initially DO NOT RESUSCITATE CODE STATUS, however the changes CODE STATUS after she was updated on his condition when he was on the medical floor. And she reversed his CODE STATUS to full code, hence patient was transferred to the ICU on 01/06/2021, intubated and mechanically ventilated. #2. Acute hypoxic respiratory failure , requiring intubation and mechanical ventilation on 01/06, patient failed BiPAP #3. Acute kidney injury related to intravascular volume depletion and dehydration #4. Acute hypochloremic hyponatremia, improved #5. Previous history of DVT on Coumadin, 6. Obesity with BMI of 46.7 kg/m #7. Chronic back pain #8. History of COPD/asthma #9. Previous history of pancreatitis #10. Hypertension #11. Acute urinary tract infection, is strongly suspected, continue Rocephin. Accommodation: Continue ventilatory support. Continue COVID-19 cocktail. Continue Decadron. Continue sedation and paralysis. Titrate FiO2 and PEEP accordingly on a daily basis based on ABG. Continue to monitor x-rays on a daily basis as well as inflammatory markers. Continue GI and DVT prophylaxis. Nutritional support/enteral feeding. Prognosis is extremely poor and guarded. Will place lines and the patient today. Critical care time is over 30 minutes not including the time spent on procedures. Time with Patient: Greater than 30
--- NOTE | 2021-02-06 15:56 | XR ---
EXAMINATION TYPE: XR chest 1V confirm line [facility] DATE OF EXAM: 02/06/2021 CLINICAL HISTORY: Difficulty breathing progress study. TECHNIQUE: Single AP portable upright view of the chest is obtained. COMPARISON: Chest x-ray from 02/06/2021 FINDINGS: Right-sided IJ central venous line with its distal tip overlying the SVC right atrial junc tion. Endotracheal tube is well-positioned. Scattered patchy infiltrates seen throughout both lung fi elds. IMPRESSION: Overall stable findings,
[2021-02-06] MEDS ORDERED: WARFARIN 0.5 MG TAB PO ONE (18:00)
[2021-02-06] MEDS: ALBUTEROL HFA INHALER INHALATION PRN (19:41)
[2021-02-07 00:07] LABS: Glucose,Whole Blood 141 mg/dL (75-99)
[2021-02-07] MEDS: INSULIN ASPART (NovoLOG) 100 UNIT/ML VIAL SQ SCH ×4 (00:26→17:28)
[2021-02-07] MEDS: ARTIFICIAL TEARS-HYPROMELLOSE DROPS 15 ML BTL BOTH EYES SCH ×6 (00:26→19:43)
--- NOTE | 2021-02-07 00:29 | P.PN ---
Subjective Progress Note Date: 02/06/21 Principal diagnosis: Acute hypoxic respiratory failure secondary to coronary 19 pneumonia requiring BiPAP. Patient is 60-year-old male with a known history of asthma/COPD, history of DVT, chronic low back pain, osteoarthritis and morbid obesity with BMI 46.7 presents to ER with complaints of generalized weakness and fatigue and worsening shortness of breath and exertional dyspnea. Patient states that he has been having symptoms for the past 5-6 days and his and other family members were also tested positive for covid 19 infection. Patient has been having generalized weakness and fatigue. No complaints of chest pain. Does have cough without any sputum production. No nausea vomiting or abdominal pain or diarrhea. Chest x-ray showed diffuse residual coarsening and moderate patchy airspace opacities bilaterally. Findings may represent Covid 19 pneumonia. EKG showed normal sinus rhythm Laboratory data showed WBC 7.6 hemoglobin 10.9 and platelets 167 lymphocytes 0.4 INR 1.9 and d-dimer is 1.16 Sodium 126 potassium 4.8 chloride 89 BUN 6 T5 and creatinine 1.85 calcium 7.9 AST 219 ALT 55 alk phos 63 ALT is 2347 and CRP 24.0 Procalcitonin 0.69, Covid 19 PCR detected. Patient is not vaccinated. 02/03/2021 Patient is currently in the emergency room awaiting for self care unit transfer. Patient is currently on BiPAP 16 x 6 with 100% FiO2. Patient is still having shortness of breath and he appears to be in mild distress and unable to tolerate BiPAP. Otherwise patient has been afebrile. Currently being continued on dexamethasone, warfarin dosing and multivitamins. Patient was started on ceftriaxone for possible urinary tract infection. Laboratory data showed sodium 128 potassium 4.3 chloride 91 BUN 60 and creatinine 1.8 LDH 893 and CRP 21.9 No complaints of chest pain. Patient is awake alert and oriented 3. Pulmonary is on board. 02/04/2021 Patient remains in the emergency department. Currently on BiPAP with 100% FiO2. Patient is saturating mid 80s. Sitting up in the bed. Still tachypneic and anxious. Awake alert and oriented. Laboratory showed WBC 11.2 hemoglobin 15.7 and platelets 202 lymphocytes 0.4 Sodium 131 potassium 4.3 chloride 94 bicarb is 28 BUN 75 creatinine 1.42. Urine culture is pending. Patient is being current on ceftriaxone. Patient is being continued on dexamethasone, Coumadin and multivitamins. Pulmonary is following. 02/05/2021 Patient is on BiPAP with FiO2 100%. Patient is restless and tachypneic. Pulli ng out tubes. Oxygen saturations around 82% to 90% while on BiPAP. Patient has been afebrile. Currently being continued on dexamethasone and Coumadin dosing. INR is 4.8 today. Laboratory data showed WBC 16.1 hemoglobin 16.1 platelets 170 BUN 77 creatinine 1.16 and troponin 0 0.042. Patient is also being current ceftriaxone for acute urinary tract infection. Urine culture showed no growth. Pulmonary is following. Patient does not want to get intubated. 02/06/2021 Patient was transferred to MICU. Intubated and on mechanical ventilator. Patient is sedated and multiple drips including propofol, fentanyl and Nimbex. Patient is also requiring norepinephrine. Laboratory showed WBC 20.7 hemoglobin 15.7 platelets 173 INR 5.8 Sodium 138 potassium 4.6 BUN 77 creatinine 1.43 LDH 3075 and CRP 15.1 AST 262 ALT 93 alk phos 94 and blood sugar is 188. Patient is being continued ceftriaxone, dexamethasone IV and Coumadin on hold. Patient is also on IV hydration with normal saline at 75 cc/h. Chest x-ray showed patchy infiltrates throughout both lung griffiths no change. Correlate clinically and follow-up and resolution is recommended. Current medications reviewed. Objective - Vital Signs Vital signs: Vital Signs Temp 100.0 F H 02/06/21 15:07 Pulse 90 02/06/21 15:30 Resp 30 H 02/06/21 15:30 BP 115/70 02/06/21 15:30 Pulse Ox 84 L 02/06/21 15:30 Intake & Output 02/05/21 02/06/21 02/06/21 18:59 06:59 18:59 Intake Total 2427.722 2301.307 Output Total 600 955 320 Balance -600 8634.466 6864.307 Weight 165.108 kg 160.1 kg 160.1 kg Intake: IV 1600 525 Sodium Chloride 0.9% 1, 1600 525 000 ml @ 75 mls/hr IV . [id number] [facility] Rx#:[id number] Intake, IV Titration 839.128 7042.307 Amount Cisatracurium 200 mg In 137.122 43.917 Sodium Chloride 0.9% 180 ml @ 1 MCG/KG/MIN 9.906 mls/hr IV .[id number] [facility] Rx #:[id number] Dexmedetomidine/0.9% NaCl 9.356 (Pmx) 400 mcg In Empty Bag 1 bag @ 0.2 MCG/KG/HR 8.255 mls/hr IV .[id number] [facility] Rx#:[id number] Norepinephrine 4 mg In 254.000 581.390 Sodium Chloride 0.9% 250 ml @ 0.05 MCG/KG/MIN 31. 453 mls/hr IV .Q8H5M [facility] Rx#:[id number] Phytonadione 5 mg In 50 Sodium Chloride 0.9% 50 ml @ 100 mls/hr IVPB ONCE STA Rx#:[id number] cefTRIAXone 1 gm In 50 Sodium Chloride 0.9% 50 ml @ 100 mls/hr IVPB Q24HR [facility] Rx#:[id number] fentaNYL (PF). 1,000 mcg 84.756 100 In Sodium Chloride 0.9% 80 ml @ 0.5 MCG/KG/HR 8. 255 mls/hr IV .Q12H7M [facility] Rx#:[id number] propofoL 1,000 mg In 342.488 300 Empty Bag 1 bag @ Titrate IV .Q0M [facility] Rx#: [id number] Blood Product 651 Ffp 24 Cpd Unit 331 [id number] Ffp 24 Cpd Unit 320 [id number] Output: Urine 600 955 320 Uretheral (García) 600 Other: Voiding Method Indwelling Catheter Indwelling Catheter Indwelling Catheter ABP, PAP, CO, CI - Last Documented Arterial Blood Pressure 140/68 - Exam PHYSICAL EXAMINATION: Patient is Sedated and on mechanical ventilator. HEENT: Normocephalic. Neck is supple. Pupils reactive. Nostrils clear. Oral cavity is moist. Neck reveals no JVD, carotid bruits, or thyromegaly. CHEST EXAMINATION: Trachea is central. Symmetrical expansion. Bilateral coarse breath sounds and diminished sounds... CARDIAC: Normal S1, S2 with no gallops. No murmurs ABDOMEN: Soft. Bowel sounds normal. No organomegaly. No abdominal bruits. Extremities: reveal no edema. No clubbing or cyanosis Neurologically Sedated and on mechanical ventilator.. No gross focal deficits noted Skin: No rash or skin lesions. Psychiatric: Could not be assessed at baseline. Musculoskeletal: No joint swelling or deformity. - Labs CBC & Chem 7: 02/06/21 04:30 02/06/21 04:30 Labs: Abnormal Lab Results - Last 24 Hours (Table) 02/05/21 02/05/21 02/05/21 Range/Units 18:00 19:22 19:22 WBC 16.1 H (3.8-10.6) k/uL Neutrophils # (1.3-7.7) k/uL Lymphocytes # (1.0-4.8) k/uL PT (9.0-12.0) sec INR (<1.2) ABG pCO2 (35-45) mmHg ABG pO2 (83-108) mmHg ABG HCO3 (21-25) mmol/L ABG Total CO2 (19-24) mmol/L ABG O2 Saturation (94-97) % BUN 77 H (9-20) mg/dL Creatinine (0.66-1.25) mg/dL Glucose 155 H (74-99) mg/dL POC Glucose (mg/dL) 145 H (75-99) mg/dL Calcium 8.3 L (8.4-10.2) mg/dL AST (17-59) U/L ALT (4-49) U/L Lactate Dehydrogenase (313-618) U/L Troponin I (0.000-0.034) ng/mL C-Reactive Protein (<1.0) mg/dL Total Protein (6.3-8.2) g/dL Albumin (3.5-5.0) g/dL 02/05/21 02/05/21 02/05/21 Range/Units 19:22 20:10 21:21 WBC (3.8-10.6) k/uL Neutrophils # (1.3-7.7) k/uL Lymphocytes # (1.0-4.8) k/uL PT (9.0-12.0) sec INR (<1.2) ABG pCO2 48 H (35-45) mmHg ABG pO2 174 H (83-108) mmHg ABG HCO3 31 H (21-25) mmol/L ABG Total CO2 33 H (19-24) mmol/L ABG O2 Saturation 99.5 H (94-97) % BUN (9-20) mg/dL Creatinine (0.66-1.25) mg/dL Glucose (74-99) mg/dL POC Glucose (mg/dL) 163 H (75-99) mg/dL Calcium (8.4-10.2) mg/dL AST (17-59) U/L ALT (4-49) U/L Lactate Dehydrogenase (313-618) U/L Troponin I 0.042 H* (0.000-0.034) ng/mL C-Reactive Protein (<1.0) mg/dL Total Protein (6.3-8.2) g/dL Albumin (3.5-5.0) g/dL 02/06/21 02/06/21 02/06/21 Range/Units 04:30 04:30 04:30 WBC 20.7 H (3.8-10.6) k/uL Neutrophils # 19.3 H (1.3-7.7) k/uL Lymphocytes # 0.3 L (1.0-4.8) k/uL PT 55.8 H (9.0-12.0) sec INR 5.8 H* (<1.2) ABG pCO2 (35-45) mmHg ABG pO2 (83-108) mmHg ABG HCO3 (21-25) mmol/L ABG Total CO2 (19-24) mmol/L ABG O2 Saturation (94-97) % BUN 77 H (9-20) mg/dL Creatinine 1.43 H (0.66-1.25) mg/dL Glucose 188 H (74-99) mg/dL POC Glucose (mg/dL) (75-99) mg/dL Calcium 8.0 L (8.4-10.2) mg/dL AST 262 H (17-59) U/L ALT 93 H (4-49) U/L Lactate Dehydrogenase 3075 H (313-618) U/L Troponin I (0.000-0.034) ng/mL C-Reactive Protein 15.1 H (<1.0) mg/dL Total Protein 5.9 L (6.3-8.2) g/dL Albumin 2.8 L (3.5-5.0) g/dL 02/06/21 Range/Units 05:15 WBC (3.8-10.6) k/uL Neutrophils # (1.3-7.7) k/uL Lymphocytes # (1.0-4.8) k/uL PT (9.0-12.0) sec INR (<1.2) ABG pCO2 52 H (35-45) mmHg ABG pO2 (83-108) mmHg ABG HCO3 29 H (21-25) mmol/L ABG Total CO2 31 H (19-24) mmol/L ABG O2 Saturation (94-97) % BUN (9-20) mg/dL Creatinine (0.66-1.25) mg/dL Glucose (74-99) mg/dL POC Glucose (mg/dL) (75-99) mg/dL Calcium (8.4-10.2) mg/dL AST (17-59) U/L ALT (4-49) U/L Lactate Dehydrogenase (313-618) U/L Troponin I (0.000-0.034) ng/mL C-Reactive Protein (<1.0) mg/dL Total Protein (6.3-8.2) g/dL Albumin (3.5-5.0) g/dL Assessment and Plan Assessment: Acute hypoxic respiratory failure due to code 19 pneumonia. initillay Requiring 100% nonrebreather---> BiPAP with 100% FiO2--->.Patient was placed on mechanical ventilator 02/05/2021 Acute covid 19 19 pneumonia. Patient has been symptoms of weakness tiredness for the past 5-6 days. Not vaccinated. Supratherapeutic INR level. Hypovolemic hyponatremia Acute UTI Acute kidney injury with creatinine level I.85 on admission Previous history of DVT currently on anticoagulation with Coumadin. INR 5.9 on admission Morbid obesity with BMI 46.7 Chronic low back pain COPD/asthma Osteoarthritis DVT prophylaxis patient is already on Coumadin. Plan: Patient is currently in MICU on mechanical ventilator. Sedated and on pressor support as well. Patient does have elevated inflammatory markers. Continue with Coumadin dosing.hold now. Continue the home medications and pain management. Added multivitamins, vitamin C, D and zinc sulfate. Due to elevated pro calcitonin level. Continue ceftriaxone for possible UTI. Monitor BMP and CBC. Pulmonary is on board. Prognosis is guarded at this time. Time with Patient: Greater than 30
[2021-02-07] MEDS: fentaNYL (PF). 1,000 MCG in SODIUM CHLORIDE 0.9% 80 ML IV SCH ×4 (02:02→22:38)
[2021-02-07] MEDS: NOREPINEPHRINE 4 MG in SODIUM CHLORIDE 0.9% 250 ML IV SCH ×2 (02:06→12:59)
[2021-02-07] MEDS: SODIUM CHLORIDE 0.9% 1,000 ML IV SCH ×2 (03:40→15:53)
[2021-02-07 04:08] LABS: Basophils % (A) 0 %; Eosinophils % (A) 0 %; HCT 42.8 % (39.0-53.0); HGB 14.1 gm/dL (13.0-17.5); Lymphocytes # (A) 0.4 k/uL (1.0-4.8); Lymphocytes % (A) 3 %; MCH 32.1 pg (25.0-35.0); MCHC 32.9 g/dL (31.0-37.0); MCV 97.7 fL (80.0-100.0); Mean Platelet Volume 8.6; Monocytes # (A) 0.5 k/uL (0-1.0); Monocytes % (A) 4 %; Neutrophils # (A) 12.4 k/uL (1.3-7.7); Neutrophils % (A) 92 %; Platelet Count 132 k/uL (150-450); RBC 4.38 m/uL (4.30-5.90); RDW 13.7 % (11.5-15.5); WBC 13.6 k/uL (3.8-10.6)
[2021-02-07 04:17] LABS: INR 1.3 (<1.2); Prothrombin Time 13.6 sec (9.0-12.0)
[2021-02-07 04:25] LABS: Potassium 4.5 mmol/L (3.5-5.1)
[2021-02-07 05:37] LABS: ABG Base Excess 5.1 mmol/L; ABG HCO3 30 mmol/L (21-25); ABG Oxygen Saturation 95.3 % (94-97); ABG PCO2 48 mmHg (35-45); ABG PO2 75 mmHg (83-108); ABG TCO2 31 mmol/L (19-24); Allen Test Performed? Yes
--- NOTE | 2021-02-07 05:40 | PCN ---
PROCEDURE NOTE OPERATIVE REPORT: Placement of the right internal jugular triple-lumen catheter. PREOPERATIVE DIAGNOSIS: Acute hypoxic respiratory failure secondary to Covid 19 pneumonia. POSTOPERATIVE DIAGNOSIS: Acute hypoxic respiratory failure secondary to Covid 19 pneumonia. ANESTHESIA: 2 mL of 1% lidocaine. PROCEDURE: The patient was placed in a supine position, the area of the right cervical region was prepared in a sterile fashion. Drapes were applied. The area behind the posterior belly of the sternocleidomastoid was locally anesthetized with lidocaine. Then, using the posterior approach, the right internal jugular vein was easily cannulated, a guidewire was placed, the area around the guidewire was dilated. Then a triple-lumen catheter was inserted over the guidewire, and the guidewire was removed. Good blood flow noted in the 3 different ports of the catheter, the line was secured using 3.0 silk sutures. The chest x-ray showed adequate placement of the line and no complications. MMODL / IJN: [id number] /
[2021-02-07 05:50] LABS: Glucose,Whole Blood 143 mg/dL (75-99)
[2021-02-07] MEDS: CHLORHEXIDINE GLUCONATE 15 ML CUP MUCOUS MEM SCH ×2 (08:14→19:47)
[2021-02-07] MEDS: CHOLECALCIFEROL 25 MCG (1000 IU) TABLET PO SCH (08:14)
[2021-02-07] MEDS: GABAPENTIN 400 MG CAP PO SCH ×2 (08:14→19:47)
[2021-02-07] MEDS: allopurinoL 300 MG TAB PO SCH ×2 (08:14→19:47)
[2021-02-07] MEDS: PANTOPRAZOLE 40 MG/10 ML VIAL IVP SCH (08:14)
[2021-02-07] MEDS: ZINC SULFATE 220 MG CAP PO SCH (08:14)
[2021-02-07] MEDS: ASCORBIC ACID 500 MG TAB PO SCH (08:14)
[2021-02-07] MEDS: DEXAMETHASONE SOD PHOSPHATE 10 MG/ML 1 ML VIAL IVP SCH (08:15)
[2021-02-07] MEDS: CISATRACURIUM 200 MG in SODIUM CHLORIDE 0.9% 180 ML IV SCH ×2 (10:12→20:22)
[2021-02-07] MEDS: LISINOPRIL-HCTZ 10-12.5 MG 1 EACH TAB PO SCH ×2 (11:05→19:43)
[2021-02-07 11:32] LABS: Glucose,Whole Blood 138 mg/dL (75-99)
--- NOTE | 2021-02-07 11:40 | P.PN ---
Subjective Progress Note Date: 02/07/21 Acute hypoxic respiratory failure secondary to coronary 19 pneumonia requiring BiPAP. Patient is 60-year-old male with a known history of asthma/COPD, history of DVT, chronic low back pain, osteoarthritis and morbid obesity with BMI 46.7 presents to ER with complaints of generalized weakness and fatigue and worsening shortness of breath and exertional dyspnea. Patient states that he has been having symptoms for the past 5-6 days and his and other family members were also tested positive for covid 19 infection. Patient has been having generalized weakness and fatigue. No complaints of chest pain. Does have cough without any sputum production. No nausea vomiting or abdominal pain or phyllis rrhea. Chest x-ray showed diffuse residual coarsening and moderate patchy airspace opacities bilaterally. Findings may represent Covid 19 pneumonia. EKG showed normal sinus rhythm Laboratory data showed WBC 7.6 hemoglobin 10.9 and platelets 167 lymphocytes 0.4 INR 1.9 and d-dimer is 1.16 Sodium 126 potassium 4.8 chloride 89 BUN 6 T5 and creatinine 1.85 calcium 7.9 AST 219 ALT 55 alk phos 63 ALT is 2347 and CRP 24.0 Procalcitonin 0.69, Covid 19 PCR detected. Patient is not vaccinated. 02/03/2021 Patient is currently in the emergency room awaiting for self care unit transfer. Patient is currently on BiPAP 16 x 6 with 100% FiO2. Patient is still having shortness of breath and he appears to be in mild distress and unable to tolerate BiPAP. Otherwise patient has been afebrile. Currently being continued on dexamethasone, warfarin dosing and multivitamins. Patient was started on ceftriaxone for possible urinary tract infection. Laboratory data showed sodium 128 potassium 4.3 chloride 91 BUN 60 and creatinine 1.8 LDH 893 and CRP 21.9 No complaints of chest pain. Patient is awake alert and oriented 3. Pulmonary is on board. 02/04/2021 Patient remains in the emergency department. Currently on BiPAP with 100% FiO2. Patient is saturating mid 80s. Sitting up in the bed. Still tachypneic and anxious. Awake alert and oriented. Laboratory showed WBC 11.2 hemoglobin 15.7 and platelets 202 lymphocytes 0.4 Sodium 131 potassium 4.3 chloride 94 bicarb is 28 BUN 75 creatinine 1.42. Urine culture is pending. Patient is being current on ceftriaxone. Patient is being continued on dexamethasone, Coumadin and multivitamins. Pulmonary is following. 02/05/2021 Patient is on BiPAP with FiO2 100%. Patient is restless and tachypneic. Pulling out tubes. Oxygen saturations around 82% to 90% while on BiPAP. Patient has been afebrile. Currently being continued on dexamethasone and Coumadin dosing. INR is 4.8 today. Laboratory data showed WBC 16.1 hemoglobin 16.1 platelets 170 BUN 77 creatinine 1.16 and troponin 0 0.042. Patient is also being current ceftriaxone for acute urinary tract infection. Urine culture showed no growth. Pulmonary is following. Patient does not want to get intubated. 02/06/2021 Patient was transferred to MICU. Intubated and on mechanical ventilator. Patient is sedated and multiple drips including propofol, fentanyl and Nimbex. Patient is also requiring norepinephrine. Laboratory showed WBC 20.7 hemoglobin 15.7 platelets 173 INR 5.8 Sodium 138 potassium 4.6 BUN 77 creatinine 1.43 LDH 3075 and CRP 15.1 AST 262 ALT 93 alk phos 94 and blood sugar is 188. Patient is being continued ceftriaxone, dexamethasone IV and Coumadin on hold. Patient is also on IV hydration with normal saline at 75 cc/h. Chest x-ray showed patchy infiltrates throughout both lung griffiths no change. Correlate clinically and follow-up and resolution is recommended. 02/07/2021 Patient is seen and evaluated and follow-up continues to be closely monitored in the ICU with pulmonary real estate specialist following closely. Patient remains on sedation with propofol and fentanyl and is also continued on Nimbex and currently attempting to wean norepinephrine. Patient also continues on IV ceftriaxone for the possibility of a UTI although urine culture show no growth for 18 hours and will repeat pro calcitonin and consider discontinuing IV antibiotics. Patient also continues on vitamin and zinc along with Lovenox and IV dexamethasone and will continue. Pulmonary real estate specialist following and patient continues to be on mechanical vent and FiO2 is at 50% with a PEEP of 14 and per nursing staff no attempts at weaning today. Chest x-ray was done and pending. Inflammatory markers continue to be elevated although trending down. Labs: White blood count is 13.6 which is on a downward trend, hemoglobin is 14.1, platelets are 132, INR is 1.3, sodium is 142, potassium 4.5, BUN 74, creatinine 1.35, calcium 8.0, LDH 1966, CRP 9.0, pro calcitonin 0.43 Review of systems: Unable to obtain as patient is currently intubated and sedated Active Medications Acetaminophen (Acetaminophen Tab 325 Mg Tab) 650 mg PO Q6HR PRN PRN Reason: Mild Pain or Fever > 100.5 Albuterol Sulfate (Albuterol Hfa Inhaler) 2 puff INHALATION RT-Q4H PRN PRN Reason: Shortness Of Breath Last Admin: 02/06/21 19:41 Dose: 2 puff Documented by: Allopurinol (Allopurinol 300 Mg Tab) 300 mg PO BID REPLACED BY [facility] Last Admin: 02/07/21 08:14 Dose: 300 mg Documented by: Artificial Tears (Artificial Tears-Hypromellose Drops 15 Ml Btl) 2 drops BOTH EYES Q4HR REPLACED BY [facility] Last Admin: 02/07/21 11:18 Dose: 2 drops Documented by: Ascorbic Acid (Ascorbic Acid 500 Mg Tab) 1,000 mg PO DAILY REPLACED BY [facility] Last Admin: 02/07/21 08:14 Dose: 1,000 mg Documented by: Chlorhexidine Gluconate (Chlorhexidine Gluconate 15 Ml Cup) 15 ml MUCOUS MEM BID REPLACED BY [facility] Last Admin: 02/07/21 08:14 Dose: 15 ml Documented by: Cholecalciferol (Cholecalciferol 25 Mcg (1000 Iu) Tablet) 25 mcg PO DAILY REPLACED BY [facility] Last Admin: 02/07/21 08:14 Dose: 25 mcg Documented by: Cyclobenzaprine HCl (Cyclobenzaprine 10 Mg Tab) 10 mg PO TID PRN PRN Reason: Muscle Spasm Last Admin: 02/05/21 13:19 Dose: 10 mg Documented by: Dexamethasone Sodium Phosphate (Dexamethasone Sod Phosphate 10 Mg/Ml 1 Ml Vial) 6 mg IVP DAILY REPLACED BY [facility] Last Admin: 02/07/21 08:15 Dose: 6 mg Documented by: Gabapentin (Gabapentin 400 Mg Cap) 1,600 mg PO BID REPLACED BY [facility] Last Admin: 02/07/21 08:14 Dose: 1,600 mg Documented by: Lisinopril/HCTZ (Lisinopril-Hctz 10-12.5 Mg 1 Each Tab) 1 each PO BID REPLACED BY [facility] Last Admin: 02/07/21 11:05 Dose: Not Given Documented by: Sodium Chloride (Saline 0.9%) 1,000 mls @ 75 mls/hr IV .[id number] REPLACED BY [facility] Last Admin: 02/07/21 03:40 Dose: 75 mls/hr Documented by: Ceftriaxone Sodium 1 gm/ (Sodium Chloride) 50 mls @ 100 mls/hr IVPB Q24HR [facility] Last Admin: 02/07/21 08:13 Dose: 100 mls/hr Documented by: Propofol 1,000 mg/ IV Solution 100 mls @ 0 mls/hr IV .Q0M [facility]; Protocol Last Admin: 02/07/21 10:13 Dose: 40 mcg/kg/min, 38.424 mls/hr Documented by: Cisatracurium Besylate 200 mg/ (Sodium Chloride) 200 mls @ 9.906 mls/hr IV .[id number] [facility]; Protocol Last Admin: 02/07/21 10:12 Dose: 2 mcg/kg/min, 19.813 mls/hr Documented by: Fentanyl Citrate 1,000 mcg/ (Sodium Chloride) 100 mls @ 8.255 mls/hr IV .Q12H7M REPLACED BY [facility]; Protocol Last Admin: 02/07/21 08:13 Dose: 1 mcg/kg/hr, 16.511 mls/hr Documented by: Norepinephrine Bitartrate 4 mg (/ Sodium Chloride) 254 mls @ 31.453 mls/hr IV .Q8H5M [facility]; Protocol Last Titration: 02/07/21 11:04 Dose: 0.03 mcg/kg/min, 18.872 mls/hr Documented by: Insulin Aspart (Insulin Aspart (Novolog) 100 Unit/Ml Vial) 0 unit SQ Q6H [facility]; Protocol Last Admin: 02/07/21 05:54 Dose: 2 unit Documented by: Lorazepam (Lorazepam 2 Mg/Ml Inj) 1 mg IV Q4H PRN PRN Reason: Anxiety Last Admin: 02/05/21 18:06 Dose: 1 mg Documented by: Miscellaneous Information (Warfarin Per Pharmacy) 1 each MISCELLANE DIRECTED REPLACED BY [facility]; Protocol Last Admin: 02/06/21 18:41 Dose: Not Given Documented by: Morphine Sulfate (Morphine Sulfate 2 Mg/Ml Syringe) 2 mg IVP Q4HR PRN PRN Reason: Severe Pain/Discomfort Last Admin: 02/05/21 15:49 Dose: 2 mg Documented by: Naloxone HCl (Naloxone 0.4 Mg/Ml 1 Ml Vial) 0.2 mg IV Q2M PRN PRN Reason: Opioid Reversal Oxycodone/Acetaminophen (Oxycodone-Apap 10-325mg 1 Each Tab) 1 each PO Q6H PRN PRN Reason: Pain Last Admin: 02/04/21 21:20 Dose: 1 each Documented by: Pantoprazole Sodium (Pantoprazole 40 Mg/10 Ml Vial) 40 mg IVP DAILY REPLACED BY [facility] Last Admin: 02/07/21 08:14 Dose: 40 mg Documented by: Warfarin Sodium (Warfarin 2 Mg Tab) 2 mg PO ONCE@1800 ONE Stop: 02/07/21 18:01 Zinc Sulfate (Zinc Sulfate 220 Mg Cap) 220 mg PO DAILY REPLACED BY [facility] Last Admin: 02/07/21 08:14 Dose: 220 mg Documented by: PHYSICAL EXAMINATION: Patient is Sedated and on mechanical ventilator. HEENT: Normocephalic. Neck is supple. Pupils reactive. Nostrils clear. Oral cavity is moist. Neck reveals no JVD, carotid bruits, or thyromegaly. CHEST EXAMINATION: Trachea is central. Symmetrical expansion. Bilateral coarse breath sounds and diminished sounds... CARDIAC: Normal S1, S2 with no gallops. No murmurs ABDOMEN: Soft. Bowel sounds normal. No organomegaly. No abdominal bruits. Extremities: reveal no edema. No clubbing or cyanosis Neurologically Sedated and on mechanical ventilator.. No gross focal deficits noted Skin: No rash or skin lesions. Psychiatric: Could not be assessed at baseline. Musculoskeletal: No joint swelling or deformity. Assessment: Acute hypoxic respiratory failure due to Covid 19 pneumonia. Initially Requiring 100% nonrebreather---> BiPAP with 100% FiO2--->.Patient was placed on mechanical ventilator 02/05/2021 Acute covid 19 19 pneumonia. Patient has been symptoms of weakness tiredness for the past 5-6 days. Not vaccinated. Supratherapeutic INR level, approved and INR is now 1.3 Hypovolemic hyponatremia Acute UTI Acute kidney injury with creatinine level I.85 on admission Previous history of DVT currently on anticoagulation with Coumadin. INR 5.9 on admission Morbid obesity with BMI 46.7 Chronic low back pain COPD/asthma Osteoarthritis DVT prophylaxis patient is already on Coumadin. GI prophylaxis Full code Plan: Patient is currently in MICU on mechanical ventilator. Sedated and on pressor support as well. Per nursing staff attempting at weaning pressors and patient continues on IV sedation of propofol and fentanyl. Patient does have elevated inflammatory markers. LDH is 1966, CRP is 9.0, pro calcitonin is 0.43 patient continued on IV ceftriaxone Continue with Coumadin dosing and pharmacy to dose INR is 1.3 today Continue the home medications and pain management. Added multivitamins, vitamin C, D and zinc sulfate. Patient is also maintained on IV dexamethasone and will continue Due to elevated pro calcitonin level, patient will continue on ceftriaxone for possible UTI. Monitor BMP and CBC. Urine culture no growth after 18 hours Pulmonary is on board. Prognosis is guarded at this time. Objective - Vital Signs Vital signs: Vital Signs Temp 99.7 F H 02/07/21 04:00 Pulse 60 02/07/21 06:30 Resp 30 H 02/07/21 06:30 BP 115/70 02/06/21 21:00 Pulse Ox 93 L 02/07/21 06:30 Intake & Output 02/06/21 02/07/21 02/07/21 18:59 06:59 18:59 Intake Total 3833.229 1722.861 200 Output Total 630 550 Balance 3203.229 1172.861 200 Weight 160.1 kg 164.8 kg 164.8 kg Intake: IV 975 750 Sodium Chloride 0.9% 1, 975 750 000 ml @ 75 mls/hr IV . [id number] REPLACED BY [facility] Rx#:[id number] Intake, IV Titration 1567.229 972.861 200 Amount Cisatracurium 200 mg In 43.917 174.605 Sodium Chloride 0.9% 180 ml @ 1 MCG/KG/MIN 9.906 mls/hr IV .[id number] [facility] Rx #:[id number] Norepinephrine 4 mg In 765.774 312.638 Sodium Chloride 0.9% 250 ml @ 0.05 MCG/KG/MIN 31. 453 mls/hr IV .Q8H5M REPLACED BY [facility] Rx#:[id number] Phytonadione 5 mg In 50 Sodium Chloride 0.9% 50 ml @ 100 mls/hr IVPB ONCE [facility] Rx#:[id number] cefTRIAXone 1 gm In 50 Sodium Chloride 0.9% 50 ml @ 100 mls/hr IVPB Q24HR [facility] Rx#:[id number] fentaNYL (PF). 1,000 mcg 200 100 100 In Sodium Chloride 0.9% 80 ml @ 0.5 MCG/KG/HR 8. 255 mls/hr IV .Q12H7M [facility] Rx#:[id number] propofoL 1,000 mg In 457.538 385.618 100 Empty Bag 1 bag @ Titrate IV .Q0M [facility] Rx#: [id number] Blood Product 1291 Ffp 24 Cpd Unit 331 [id number] Ffp 24 Cpd Unit 320 [id number] Output: Urine 630 550 Other: Voiding Method Indwelling Catheter Indwelling Catheter # Bowel Movements 1 ABP, PAP, CO, CI - Last Documented Arterial Blood Pressure 113/48 - Labs CBC & Chem 7: 02/07/21 03:45 02/07/21 03:45 Labs: Abnormal Lab Results - Last 24 Hours (Table) 02/07/21 02/07/21 02/07/21 Range/Units 00:05 03:45 03:45 WBC 13.6 H (3.8-10.6) k/uL Plt Count 132 L (150-450) k/uL Neutrophils # 12.4 H (1.3-7.7) k/uL Lymphocytes # 0.4 L (1.0-4.8) k/uL PT 13.6 H (9.0-12.0) sec INR 1.3 H (<1.2) ABG pCO2 (35-45) mmHg ABG pO2 (83-108) mmHg ABG HCO3 (21-25) mmol/L ABG Total CO2 (19-24) mmol/L BUN (9-20) mg/dL Creatinine (0.66-1.25) mg/dL Glucose (74-99) mg/dL POC Glucose (mg/dL) 141 H (75-99) mg/dL Calcium (8.4-10.2) mg/dL Lactate Dehydrogenase (313-618) U/L C-Reactive Protein (<1.0) mg/dL 02/07/21 02/07/21 02/07/21 Range/Units 03:45 05:33 05:48 WBC (3.8-10.6) k/uL Plt Count (150-450) k/uL Neutrophils # (1.3-7.7) k/uL Lymphocytes # (1.0-4.8) k/uL PT (9.0-12.0) sec INR (<1.2) ABG pCO2 48 H (35-45) mmHg ABG pO2 75 L (83-108) mmHg ABG HCO3 30 H (21-25) mmol/L ABG Total CO2 31 H (19-24) mmol/L BUN 74 H (9-20) mg/dL Creatinine 1.35 H (0.66-1.25) mg/dL Glucose 164 H (74-99) mg/dL POC Glucose (mg/dL) 143 H (75-99) mg/dL Calcium 8.0 L (8.4-10.2) mg/dL Lactate Dehydrogenase 1966 H (313-618) U/L C-Reactive Protein 9.0 H (<1.0) mg/dL Microbiology - Last 24 Hours (Table) 02/06/21 16:21 Gram Stain - Preliminary Sputum Sputum Culture - Preliminary
--- NOTE | 2021-02-07 12:31 | P.PN ---
Subjective Progress Note Date: 02/07/21 Principal diagnosis: Acute hypoxic respiratory failure secondary to COVID-19 pneumonia requiring intubation and mechanical ventilation on 01/06/2021 61-year-old male patient, presented to the emergency department because of worsening shortness of breath and fatigue and weakness. He has several family members in his household tested positive for COVID 19. The patient himself is not vaccinated. His symptoms started approximately 5 or 6 days ago. He progressively became more short of breath and the patient presented to the emergency department very short of breath, hypoxic, initial pulse ox was 67% on room air oxygen. He was afebrile and he was tachycardic. His EKG showed normal sinus rhythm, sinus tachycardia, white cell count was at 7.6 with a hemoglobin of 15.9, he sodium level was 126, he had an acute kidney injury with a BUN of 65 with a creatinine of 1.8, the patient immediately checked positive for COVID 19. Lactic acid level was at 1.9. The patient was initially placed on 100% nonrebreather facemask. It improved his oxygen saturation. We are the process of switching this patient to a combination of Airvo and 100% on a beta facemasks pH chest x-ray shows some elevation of the right hemidiaphragm. The patient is morbidly obese with a BMI of 46.7. The chest x-ray also showed diffuse bilateral pulmonary infiltrates consistent with COVID 19 related pneumonia. The patient is started on steroids. inflammatory markers are still pending for now. Comorbid conditions include COPD/asthma, previous history of DVT, previous history of pancreatitis, hypertension. On 02/03/2021 patient seen in follow-up in the emergency department, he remains on BiPAP support with pressures of 16 and 6 and FiO2 of 100%, remains dyspneic, tachypneic, easily desaturates when the mask is removed to receive sips of water and oral medications. He is awake and alert, oriented 3. Answers questions appropriately. Afebrile, no completes of chest discomfort, occasional cough. Symptoms have been reviewed, CBC was unremarkable, lymphocyte count is stable at 0.44. Patient is on Coumadin, his INR today is 2.0, his d-dimer yesterday was 1.16, today sodium is improving and is up to 120, potassium is 4.3, chloride is 91, BUN is 60, creatinine is 1.8., His inflammatory markers are improving, his LDH is down to 893, CRP is still pending, his pro-calcitonin level is elevated at 0.69 suggesting possibility of underlying gastrointestinal infection, urinalysis is suggestive of acute urinary tract infection, urine culture has been sent and pending at this time. Rocephin has been added for empiric antibiotic coverage, patient is on Decadron 6 mg daily, he is on Coumadin as mentioned above, and he is receiving IV fluids with 0.9 normal saline at a rate of 75 per hour, he is on vitamin C, D and zinc. His chest x-ray from yesterday shows diffuse residual coarsening of moderate patchy airspace opacities bilaterally. On 02/05/2021 patient seen in follow-up on selective care unit, patient is currently on BiPAP with FiO2 100%, he is very restless, he frequently removes the tubing, becomes more short of breath, he desaturates, he has required lorazepam 1 mg every 4 hours for anxiety. He is currently on Decadron 6 more gram daily, he is on empiric antibiotics in the form of ceftriaxone, he is on Coumadin, and his INR today is 4.8, the rest of his lab work is still pending for today. His urinalysis showed possibility of urinary tract infection, urine culture not show any growth. No fever or chills. His last chest x-ray was done 2 days ago showing diffuse residual coarsening and moderate patchy airspace opacities bilaterally. There is chronic elevation of the right hemidiaphragm. His last set of inflammatory markers was on 02/03/2021, but noted improvements in his inflammatory markers. Reevaluated today on 02/06/2021, patient was transferred to the ICU yesterday, mostly because his pulmonary status continued to deteriorate, patient remained hypoxic, continued to remove his BiPAP mask, transferred into the ICU, placed on Precedex initially, and kept him on BiPAP, however patient continued to saturate, and I was notified about the nurses that his clinical status is getting worse, recommended immediate intubation and mechanical ventilation. Patient is now intubated, mechanically ventilated. He is on assist control rate of 30 tidal volume 450 FiO2 60% and PEEP of 14. ABG showed a pO2 of 86 pCO2 of 52 pH of 7.36, patient remains on multiple drips including propofol at 40 mcg/kg/m, fentanyl 1 mcg/kg/h Nimbex 1.5 mcg/kg/m. Patient is also requiring norepinephrine at 0.1 mcg/kg/m. LDH today is extremely high over 3000. WBC count is elevated at 20.7 hemoglobin 15.7 his electrolytes are normal however his renal profile showed a BUN of 77 creatinine 1.47 chest x-ray showed patchy bilateral infiltrates, slight improvement compared to chest x-ray prior to intubation. His INR today is 5.8, hence I plan to reverse his INR are at least give him fresh frozen plasma and vitamin K in order to safely place a central line and arterial line in this patient. Reevaluated today on 02/07/2021, patient remains in the ICU, intubated and mechanically ventilated. He is on assist control rate of 30 tidal volume 450 FiO2 50% and PEEP of 14. ABG showed a pO2 of 75 pCO2 48 pH of 7.40. Chest x- ray continues to show bilateral infiltrates with a right lower lobe consolidation. No changes were made in his ventilator settings today. Agent remains on multiple drips including propofol at 40 mcg/kg/m, fentanyl at 20 mcg/kg/h Nimbex at 2 mcg/minute, norepinephrine at 0.03 mcg/kg/m, IV fluid saline at 75 mL/h he is also on enteral feedings. LDH is improving down to 1966 CRP is 9 about the same. Electrolytes are about the same but BUN is 74 creatinine is 1.35. Again chest x-ray showed no major change since admission. Education list was reviewed, patient is on allopurinol, ascorbic acid, Rocephin, vitamin D, Decadron 6 mg IV push daily, Neurontin 1600 mg twice a day, lisinopril, insulin, lorazepam, patient is on Protonix 40 mg IV push daily, Coumadin 2 mg daily. And the patient is on zinc Objective - Vital Signs Vital signs: Vital Signs Temp 100.1 F H 02/07/21 08:00 Pulse 59 L 02/07/21 11:30 Resp 30 H 02/07/21 11:30 BP 115/70 02/07/21 10:00 Pulse Ox 91 L 02/07/21 11:30 Intake & Output 02/06/21 02/07/21 02/07/21 18:59 06:59 18:59 Intake Total 3833.229 2473.670 6320.270 Output Total 630 550 375 Balance 3203.229 1172.861 674.270 Weight 160.1 kg 164.8 kg 164.8 kg Intake: IV 975 750 300 Sodium Chloride 0.9% 1, 975 750 300 000 ml @ 75 mls/hr IV . [id number] [facility] Rx#:[id number] Intake, IV Titration 1567.229 972.861 749.270 Amount Cisatracurium 200 mg In 43.917 174.605 185.998 Sodium Chloride 0.9% 180 ml @ 1 MCG/KG/MIN 9.906 mls/hr IV .[id number] [facility] Rx #:[id number] Norepinephrine 4 mg In 765.774 312.638 140.907 Sodium Chloride 0.9% 250 ml @ 0.05 MCG/KG/MIN 31. 453 mls/hr IV .[id number] [facility] Rx#:[id number] Phytonadione 5 mg In 50 Sodium Chloride 0.9% 50 ml @ 100 mls/hr IVPB ONCE STA Rx#:[id number] cefTRIAXone 1 gm In 50 50 Sodium Chloride 0.9% 50 ml @ 100 mls/hr IVPB Q24HR [facility] Rx#:[id number] fentaNYL (PF). 1,000 mcg 200 100 100 In Sodium Chloride 0.9% 80 ml @ 0.5 MCG/KG/HR 8. 255 mls/hr IV .[id number] [facility] Rx#:[id number] propofoL 1,000 mg In 457.538 385.618 272.365 Empty Bag 1 bag @ Titrate IV .Q0M [facility] Rx#: [id number] Blood Product 1291 Ffp 24 Cpd Unit 331 [id number] Ffp 24 Cpd Unit 320 [id number] Output: Urine 630 550 375 Other: Voiding Method Indwelling Catheter Indwelling Catheter Indwelling Catheter # Bowel Movements 1 ABP, PAP, CO, CI - Last Documented Arterial Blood Pressure 127/55 - Exam GENERAL EXAM: Revealed a 60-year-old white male morbidly obese intubated and mechanically ventilated. HEAD: Normocephalic/atraumatic. HEENT: PERRLA, EOMI, nonicteric, no neck masses, moist mucous membranes, endotracheal tube and orogastric tube are intact. CHEST: No chest wall deformity. Symmetrical expansion. LUNGS: Records at the bases bilaterally. CVS: Regular rate and rhythm, normal S1 and S2, no gallops, no murmurs, no rubs ABDOMEN: Soft, nontender. No hepatosplenomegaly, normal bowel sounds, no guarding or rigidity. EXTREMITIES: No clubbing, 1+ lower extremity edema no cyanosis, 2+ pulses and upper and lower extremities. With venous stasis changes noted in lower extremities. SKIN: No rashes, except for chronic venous stasis changes and brawny discoloration of the lower extremities. CENTRAL NERVOUS SYSTEM: Cannot assess, patient is sedated and paralyzed. PSYCHIATRIC: Cannot assess patient is sedated and paralyzed. - Labs CBC & Chem 7: 02/07/21 03:45 02/07/21 03:45 Labs: Abnormal Lab Results - Last 24 Hours (Table) 02/07/21 02/07/21 02/07/21 Range/Units 00:05 03:45 03:45 WBC 13.6 H (3.8-10.6) k/uL Plt Count 132 L (150-450) k/uL Neutrophils # 12.4 H (1.3-7.7) k/uL Lymphocytes # 0.4 L (1.0-4.8) k/uL PT 13.6 H (9.0-12.0) sec INR 1.3 H (<1.2) ABG pCO2 (35-45) mmHg ABG pO2 (83-108) mmHg ABG HCO3 (21-25) mmol/L ABG Total CO2 (19-24) mmol/L BUN (9-20) mg/dL Creatinine (0.66-1.25) mg/dL Glucose (74-99) mg/dL POC Glucose (mg/dL) 141 H (75-99) mg/dL Calcium (8.4-10.2) mg/dL Lactate Dehydrogenase (313-618) U/L C-Reactive Protein (<1.0) mg/dL Procalcitonin (0.02-0.09) ng/mL 02/07/21 02/07/21 02/07/21 Range/Units 03:45 03:45 05:33 WBC (3.8-10.6) k/uL Plt Count (150-450) k/uL Neutrophils # (1.3-7.7) k/uL Lymphocytes # (1.0-4.8) k/uL PT (9.0-12.0) sec INR (<1.2) ABG pCO2 48 H (35-45) mmHg ABG pO2 75 L (83-108) mmHg ABG HCO3 30 H (21-25) mmol/L ABG Total CO2 31 H (19-24) mmol/L BUN 74 H (9-20) mg/dL Creatinine 1.35 H (0.66-1.25) mg/dL Glucose 164 H (74-99) mg/dL POC Glucose (mg/dL) (75-99) mg/dL Calcium 8.0 L (8.4-10.2) mg/dL Lactate Dehydrogenase 1966 H (313-618) U/L C-Reactive Protein 9.0 H (<1.0) mg/dL Procalcitonin 0.43 H (0.02-0.09) ng/mL 02/07/21 02/07/21 Range/Units 05:48 11:30 WBC (3.8-10.6) k/uL Plt Count (150-450) k/uL Neutrophils # (1.3-7.7) k/uL Lymphocytes # (1.0-4.8) k/uL PT (9.0-12.0) sec INR (<1.2) ABG pCO2 (35-45) mmHg ABG pO2 (83-108) mmHg ABG HCO3 (21-25) mmol/L ABG Total CO2 (19-24) mmol/L BUN (9-20) mg/dL Creatinine (0.66-1.25) mg/dL Glucose (74-99) mg/dL POC Glucose (mg/dL) 143 H 138 H (75-99) mg/dL Calcium (8.4-10.2) mg/dL Lactate Dehydrogenase (313-618) U/L C-Reactive Protein (<1.0) mg/dL Procalcitonin (0.02-0.09) ng/mL Microbiology - Last 24 Hours (Table) 02/06/21 16:21 Gram Stain - Preliminary Sputum Sputum Culture - Preliminary Assessment and Plan Assessment: #1. Acute COVID-19, patient presented with worsening shortness of breath of 5 days duration, and she was not a candidate for Remdesivir related to severity of his hypoxia. Baricitinib was started on 02/02/2021 which will be discontinued today on 02/03/2021 related to possibility of underlying urinary tract infection. Patient was initially DO NOT RESUSCITATE CODE STATUS, however the changes CODE STATUS after she was updated on his condition when he was on the medical floor. And she reversed his CODE STATUS to full code, hence patient was transferred to the ICU on 01/06/2021, intubated and mechanically ventilated. #2. Acute hypoxic respiratory failure , requiring intubation and mechanical ventilation on 01/06, patient failed BiPAP #3. Acute kidney injury related to intravascular volume depletion and dehydration #4. Acute hypochloremic hyponatremia, resolved. #5. Previous history of DVT on Coumadin, 6. Obesity with BMI of 46.7 kg/m #7. Chronic back pain #8. History of COPD/asthma #9. Previous history of pancreatitis #10. Hypertension #11. Acute urinary tract infection, is strongly suspected, continue Rocephin. However her urine cultures have been negative. Accommodation: Continue nutritional support. Continue enteral feeding. Continue ventilatory support. No changes were made in his ventilator settings today. Patient remains on assist control rate of 30 tidal volume 450 FiO2 50% and PEEP of 14. Continue COVID-19 cocktail. Continue Decadron. Continue sedation and paralysis. Titrate FiO2 and PEEP accordingly on a daily basis based on ABG. Continue to monitor x-rays on a daily basis as well as inflammatory markers. Continue GI and DVT prophylaxis. Prognosis is extremely poor and guarded. Critical care time is over 30 minutes not including the time spent on proc edures. Time with Patient: Greater than 30
--- NOTE | 2021-02-07 13:43 | XR ---
EXAMINATION TYPE: XR chest 1V DATE OF EXAM: 02/07/2021 COMPARISON: Chest x-ray 02/06/2021 HISTORY: Covid pneumonia, intubated TECHNIQUE: Single frontal view of the chest is obtained. FINDINGS: Patient is rotated. Endotracheal tube, NG tube, right jugular central venous catheter are overlying appropriate positions. No evident pneumothorax or pleural effusion. Bilateral airspace dise ase shows a similar appearance, right hemidiaphragm remains elevated. Cardiac mediastinal silhouette not significantly changed. IMPRESSION: Correlate for pneumonia, ARDS. Rotated exam.
[2021-02-07 17:23] LABS: Glucose,Whole Blood 171 mg/dL (75-99)
[2021-02-07] MEDS ORDERED: WARFARIN 2 MG TAB PO ONE (18:00)
[2021-02-08 00:52] LABS: Glucose,Whole Blood 158 mg/dL (75-99)
[2021-02-08] MEDS: INSULIN ASPART (NovoLOG) 100 UNIT/ML VIAL SQ SCH ×5 (01:00→23:42)
[2021-02-08] MEDS: ARTIFICIAL TEARS-HYPROMELLOSE DROPS 15 ML BTL BOTH EYES SCH ×7 (01:01→23:21)
[2021-02-08] MEDS: CISATRACURIUM 200 MG in SODIUM CHLORIDE 0.9% 180 ML IV SCH ×2 (05:04→12:53)
[2021-02-08] MEDS: SODIUM CHLORIDE 0.9% 1,000 ML IV SCH ×2 (05:07→18:08)
[2021-02-08] MEDS: fentaNYL (PF). 1,000 MCG in SODIUM CHLORIDE 0.9% 80 ML IV SCH ×3 (05:37→19:04)
[2021-02-08 05:44] LABS: ABG Base Excess 3.3 mmol/L; ABG HCO3 28 mmol/L (21-25); ABG Oxygen Saturation 94.8 % (94-97); ABG PCO2 46 mmHg (35-45); ABG PO2 73 mmHg (83-108); ABG TCO2 30 mmol/L (19-24); Allen Test Performed? Yes
[2021-02-08 05:48] LABS: INR 1.5 (<1.2); Prothrombin Time 14.7 sec (9.0-12.0)
[2021-02-08 06:12] LABS: Glucose,Whole Blood 159 mg/dL (75-99)
[2021-02-08 06:28] LABS: Basophils % (A) 0 %; Eosinophils % (A) 0 %; HCT 43.6 % (39.0-53.0); HGB 13.9 gm/dL (13.0-17.5); Lymphocytes # (A) 0.4 k/uL (1.0-4.8); Lymphocytes % (A) 2 %; MCH 31.3 pg (25.0-35.0); MCHC 31.9 g/dL (31.0-37.0); MCV 98.1 fL (80.0-100.0); Monocytes # (A) 0.5 k/uL (0-1.0); Monocytes % (A) 3 %; Neutrophils # (A) 15.6 k/uL (1.3-7.7); Neutrophils % (A) 94 %; Platelet Count 142 k/uL (150-450); RBC 4.45 m/uL (4.30-5.90); RDW 13.7 % (11.5-15.5); WBC 16.6 k/uL (3.8-10.6)
[2021-02-08 06:37] LABS: Calcium 8.2 mg/dL (8.4-10.2); Potassium 4.4 mmol/L (3.5-5.1)
--- NOTE | 2021-02-08 07:18 | XR ---
EXAMINATION TYPE: XR chest 1V DATE OF EXAM: 02/08/2021 COMPARISON: Chest x-ray 02/07/2021 HISTORY: Intubated TECHNIQUE: Single frontal view of the chest is obtained. FINDINGS: Findings are similar. Endotracheal tube, NG tube, right jugular central venous catheter ar e again noted and stable overlying appropriate position. Bilateral airspace disease is present. No ev ident pneumothorax or pleural effusion. Right hemidiaphragm is elevated. Patient is rotated. Cardiac mediastinal silhouette likely unchanged. IMPRESSION: Correlate for pneumonia, ARDS
[2021-02-08] MEDS: NOREPINEPHRINE 4 MG in SODIUM CHLORIDE 0.9% 250 ML IV SCH ×2 (08:19→17:28)
[2021-02-08] MEDS: LISINOPRIL-HCTZ 10-12.5 MG 1 EACH TAB PO SCH ×2 (08:32→21:59)
[2021-02-08] MEDS: PANTOPRAZOLE 40 MG/10 ML VIAL IVP SCH (08:54)
[2021-02-08] MEDS: GABAPENTIN 400 MG CAP PO SCH ×2 (08:54→20:55)
[2021-02-08] MEDS: DEXAMETHASONE SOD PHOSPHATE 10 MG/ML 1 ML VIAL IVP SCH (08:54)
[2021-02-08] MEDS: CHLORHEXIDINE GLUCONATE 15 ML CUP MUCOUS MEM SCH ×2 (08:54→20:55)
[2021-02-08] MEDS: CHOLECALCIFEROL 25 MCG (1000 IU) TABLET PO SCH (08:55)
[2021-02-08] MEDS: allopurinoL 300 MG TAB PO SCH ×2 (08:55→20:55)
[2021-02-08] MEDS: ZINC SULFATE 220 MG CAP PO SCH (08:55)
[2021-02-08] MEDS: ASCORBIC ACID 500 MG TAB PO SCH (08:55)
--- NOTE | 2021-02-08 11:32 | P.PN ---
Subjective Progress Note Date: 02/08/21 Principal diagnosis: Acute hypoxic respiratory failure secondary to COVID-19 pneumonia requiring intubation and mechanical ventilation on 01/06/2021 61-year-old male patient, presented to the emergency department because of worsening shortness of breath and fatigue and weakness. He has several family members in his household tested positive for COVID 19. The patient himself is not vaccinated. His symptoms started approximately 5 or 6 days ago. He progressively became more short of breath and the patient presented to the emergency department very short of breath, hypoxic, initial pulse ox was 67% on room air oxygen. He was afebrile and he was tachycardic. His EKG showed normal sinus rhythm, sinus tachycardia, white cell count was at 7.6 with a hemoglobin of 15.9, he sodium level was 126, he had an acute kidney injury with a BUN of 65 with a creatinine of 1.8, the patient immediately checked positive for COVID 19. Lactic acid level was at 1.9. The patient was initially placed on 100% nonrebreather facemask. It improved his oxygen saturation. We are the process of switching this patient to a combination of Airvo and 100% on a beta facemasks pH chest x-ray shows some elevation of the right hemidiaphragm. The patient is morbidly obese with a BMI of 46.7. The chest x-ray also showed diffuse bilateral pulmonary infiltrates consistent with COVID 19 related pneumonia. The patient is started on steroids. inflammatory markers are still pending for now. Comorbid conditions include COPD/asthma, previous history of DVT, previous history of pancreatitis, hypertension. On 02/03/2021 patient seen in follow-up in the emergency department, he remains on BiPAP support with pressures of 16 and 6 and FiO2 of 100%, remains dyspneic, tachypneic, easily desaturates when the mask is removed to receive sips of water and oral medications. He is awake and alert, oriented 3. Answers questions appropriately. Afebrile, no completes of chest discomfort, occasional cough. Symptoms have been reviewed, CBC was unremarkable, lymphocyte count is stable at 0.44. Patient is on Coumadin, his INR today is 2.0, his d-dimer yesterday was 1.16, today sodium is improving and is up to 120, potassium is 4.3, chloride is 91, BUN is 60, creatinine is 1.8., His inflammatory markers are improving, his LDH is down to 893, CRP is still pending, his pro-calcitonin level is elevated at 0.69 suggesting possibility of underlying gastrointestinal infection, urinalysis is suggestive of acute urinary tract infection, urine culture has been sent and pending at this time. Rocephin has been added for empiric antibiotic coverage, patient is on Decadron 6 mg daily, he is on Coumadin as mentioned above, and he is receiving IV fluids with 0.9 normal saline at a rate of 75 per hour, he is on vitamin C, D and zinc. His chest x-ray from yesterday shows diffuse residual coarsening of moderate patchy airspace opacities bilaterally. On 02/05/2021 patient seen in follow-up on selective care unit, patient is currently on BiPAP with FiO2 100%, he is very restless, he frequently removes the tubing, becomes more short of breath, he desaturates, he has required lorazepam 1 mg every 4 hours for anxiety. He is currently on Decadron 6 more gram daily, he is on empiric antibiotics in the form of ceftriaxone, he is on Coumadin, and his INR today is 4.8, the rest of his lab work is still pending for today. His urinalysis showed possibility of urinary tract infection, urine culture not show any growth. No fever or chills. His last chest x-ray was done 2 days ago showing diffuse residual coarsening and moderate patchy airspace opacities bilaterally. There is chronic elevation of the right hemidiaphragm. His last set of inflammatory markers was on 02/03/2021, but noted improvements in his inflammatory markers. Reevaluated today on 02/06/2021, patient was transferred to the ICU yesterday, mostly because his pulmonary status continued to deteriorate, patient remained hypoxic, continued to remove his BiPAP mask, transferred into the ICU, placed on Precedex initially, and kept him on BiPAP, however patient continued to saturate, and I was notified about the nurses that his clinical status is getting worse, recommended immediate intubation and mechanical ventilation. Patient is now intubated, mechanically ventilated. He is on assist control rate of 30 tidal volume 450 FiO2 60% and PEEP of 14. ABG showed a pO2 of 86 pCO2 of 52 pH of 7.36, patient remains on multiple drips including propofol at 40 mcg/kg/m, fentanyl 1 mcg/kg/h Nimbex 1.5 mcg/kg/m. Patient is also requiring norepinephrine at 0.1 mcg/kg/m. LDH today is extremely high over 3000. WBC count is elevated at 20.7 hemoglobin 15.7 his electrolytes are normal however his renal profile showed a BUN of 77 creatinine 1.47 chest x-ray showed patchy bilateral infiltrates, slight improvement compared to chest x-ray prior to intubation. His INR today is 5.8, hence I plan to reverse his INR are at least give him fresh frozen plasma and vitamin K in order to safely place a central line and arterial line in this patient. Reevaluated today on 02/07/2021, patient remains in the ICU, intubated and mechanically ventilated. He is on assist control rate of 30 tidal volume 450 FiO2 50% and PEEP of 14. ABG showed a pO2 of 75 pCO2 48 pH of 7.40. Chest x- ray continues to show bilateral infiltrates with a right lower lobe consolidation. No changes were made in his ventilator settings today. Agent remains on multiple drips including propofol at 40 mcg/kg/m, fentanyl at 20 mcg/kg/h Nimbex at 2 mcg/minute, norepinephrine at 0.03 mcg/kg/m, IV fluid saline at 75 mL/h he is also on enteral feedings. LDH is improving down to 1966 CRP is 9 about the same. Electrolytes are about the same but BUN is 74 creatinine is 1.35. Again chest x-ray showed no major change since admission. Education list was reviewed, patient is on allopurinol, ascorbic acid, Rocephin, vitamin D, Decadron 6 mg IV push daily, Neurontin 1600 mg twice a day, lisinopril, insulin, lorazepam, patient is on Protonix 40 mg IV push daily, Coumadin 2 mg daily. And the patient is on zinc Reevaluated today on 02/08/2021, remains in the ICU, intubated and mechanically ventilated. Patient is on assist control rate of 30 tidal volume 450 FiO2 50% PEEP is 14. ABG showed a pO2 of 73 pCO2 46 pH of 7.40 hence no changes were made in his present ventilator settings. Chest x-ray continues to show not much of a significant change, bilateral infiltrates persist. Patient is on fentanyl at 1 mcg/kg/h, propofol at 40 mcg/kg/minute, Nimbex at 2 mcg/kg/m, norepinephrine at 0.02 mcg/kg/m. Patient is on vital AF rate 45 per hour. WBC count today 16.6 hemoglobin 14 INR 1.5 patient is on Coumadin for history of DVT. Sodium 145 potassium 4.4 chloride 111 bicarb 28 BUN is 74 creatinine is 1.22. Remains on vitamin C, Rocephin, vitamin D, Decadron 6 mg IV push daily, Neurontin, lisinopril, Protonix, Coumadin 2 mg daily and is also on zinc. Objective - Vital Signs Vital signs: Vital Signs Temp 98.3 F 02/08/21 08:00 Pulse 57 L 02/08/21 10:00 Resp 30 H 02/08/21 10:00 BP 115/70 02/07/21 18:00 Pulse Ox 94 L 02/08/21 10:00 Intake & Output 02/07/21 02/08/21 02/08/21 18:59 06:59 18:59 Intake Total 2163.837 2152.747 316.312 Output Total 825 960 155 Balance 8029.853 1776.747 161.312 Weight 164.8 kg 164 kg Intake: IV 900 825 153 Sodium Chloride 0.9% 1, 900 825 150 000 ml @ 75 mls/hr IV . [id number] [facility] Rx#:[id number] presssure bag 3 Intake, IV Titration 1143.837 877.747 83.312 Amount Cisatracurium 200 mg In 248.409 309.962 Sodium Chloride 0.9% 180 ml @ 1 MCG/KG/MIN 9.906 mls/hr IV .[id number] [facility] Rx #:[id number] Norepinephrine 4 mg In 173.063 Sodium Chloride 0.9% 250 ml @ 0.05 MCG/KG/MIN 31. 453 mls/hr IV .Q8H5M [facility] Rx#:[id number] cefTRIAXone 1 gm In 50 Sodium Chloride 0.9% 50 ml @ 100 mls/hr IVPB Q24HR [facility] Rx#:[id number] fentaNYL (PF). 1,000 mcg 200 200 In Sodium Chloride 0.9% 80 ml @ 0.5 MCG/KG/HR 8. 255 mls/hr IV .Q12H7M [facility] Rx#:[id number] propofoL 1,000 mg In 472.365 367.785 83.312 Empty Bag 1 bag @ Titrate IV .Q0M [facility] Rx#: [id number] Tube Feeding 120 360 80 Other 90 Output: Urine 825 960 155 Other: Voiding Method Indwelling Catheter Indwelling Catheter Indwelling Catheter ABP, PAP, CO, CI - Last Documented Arterial Blood Pressure 140/56 - Exam GENERAL EXAM: Revealed a 60-year-old white male morbidly obese intubated and mechanically ventilated. HEAD: Normocephalic/atraumatic. HEENT: PERRLA, EOMI, nonicteric, no neck masses, moist mucous membranes, endotracheal tube and orogastric tube are intact. CHEST: No chest wall deformity. Symmetrical expansion. LUNGS: Records at the bases bilaterally. CVS: Regular rate and rhythm, normal S1 and S2, no gallops, no murmurs, no rubs ABDOMEN: Soft, nontender. No hepatosplenomegaly, normal bowel sounds, no guarding or rigidity. EXTREMITIES: No clubbing, trace of bipedal edema no cyanosis, 2+ pulses and upper and lower extremities. With venous stasis changes noted in lower extremit ies. SKIN: No rashes, except for chronic venous stasis changes and brawny discoloration of the lower extremities. CENTRAL NERVOUS SYSTEM: Cannot assess, patient is sedated and paralyzed. PSYCHIATRIC: Cannot assess patient is sedated and paralyzed. - Labs CBC & Chem 7: 02/08/21 05:57 02/08/21 05:57 Labs: Abnormal Lab Results - Last 24 Hours (Table) 02/07/21 02/07/21 02/07/21 Range/Units 03:45 11:30 17:21 WBC (3.8-10.6) k/uL Plt Count (150-450) k/uL Neutrophils # (1.3-7.7) k/uL Lymphocytes # (1.0-4.8) k/uL PT (9.0-12.0) sec INR (<1.2) ABG pCO2 (35-45) mmHg ABG pO2 (83-108) mmHg ABG HCO3 (21-25) mmol/L ABG Total CO2 (19-24) mmol/L Chloride (98-107) mmol/L BUN (9-20) mg/dL Glucose (74-99) mg/dL POC Glucose (mg/dL) 138 H 171 H (75-99) mg/dL Hemoglobin A1c 6.3 H (4.0-6.0) % Calcium (8.4-10.2) mg/dL 02/08/21 02/08/21 02/08/21 Range/Units 00:51 05:30 05:40 WBC (3.8-10.6) k/uL Plt Count (150-450) k/uL Neutrophils # (1.3-7.7) k/uL Lymphocytes # (1.0-4.8) k/uL PT 14.7 H (9.0-12.0) sec INR 1.5 H (<1.2) ABG pCO2 46 H (35-45) mmHg ABG pO2 73 L (83-108) mmHg ABG HCO3 28 H (21-25) mmol/L ABG Total CO2 30 H (19-24) mmol/L Chloride (98-107) mmol/L BUN (9-20) mg/dL Glucose (74-99) mg/dL POC Glucose (mg/dL) 158 H (75-99) mg/dL Hemoglobin A1c (4.0-6.0) % Calcium (8.4-10.2) mg/dL 02/08/21 02/08/21 02/08/21 Range/Units 05:57 05:57 06:11 WBC 16.6 H (3.8-10.6) k/uL Plt Count 142 L (150-450) k/uL Neutrophils # 15.6 H (1.3-7.7) k/uL Lymphocytes # 0.4 L (1.0-4.8) k/uL PT (9.0-12.0) sec INR (<1.2) ABG pCO2 (35-45) mmHg ABG pO2 (83-108) mmHg ABG HCO3 (21-25) mmol/L ABG Total CO2 (19-24) mmol/L Chloride 111 H (98-107) mmol/L BUN 74 H (9-20) mg/dL Glucose 184 H (74-99) mg/dL POC Glucose (mg/dL) 159 H (75-99) mg/dL Hemoglobin A1c (4.0-6.0) % Calcium 8.2 L (8.4-10.2) mg/dL Microbiology - Last 24 Hours (Table) 02/06/21 16:21 Gram Stain - Final Sputum Sputum Culture - Final Assessment and Plan Assessment: #1. Acute COVID-19, patient presented with worsening shortness of breath of 5 days duration, and she was not a candidate for Remdesivir related to severity of his hypoxia. Baricitinib was started on 02/02/2021 which will be discontinued today on 02/03/2021 related to possibility of underlying urinary tract infection. Patient was initially DO NOT RESUSCITATE CODE STATUS, however the changes CODE STATUS after she was updated on his condition when he was on the medical floor. And she reversed his CODE STATUS to full code, hence patient was transferred to the ICU on 01/06/2021, intubated and mechanically ventilated. #2. Acute hypoxic respiratory failure , requiring intubation and mechanical ventilation on 01/06, patient failed BiPAP #3. Acute kidney injury related to intravascular volume depletion and dehydration #4. Acute hypochloremic hyponatremia, resolved. #5. Previous history of DVT on Coumadin, 6. Obesity with BMI of 46.7 kg/m #7. Chronic back pain #8. History of COPD/asthma #9. Previous history of pancreatitis #10. Hypertension #11. Acute urinary tract infection, is strongly suspected, continue Rocephin. However her urine cultures have been negative. Accommodation: Continue nutritional support. Continue enteral feeding. Continue ventilatory support. No changes were made in his ventilator settings today. Patient remains on assist control rate of 30 tidal volume 450 FiO2 50% and PEEP of 14. Continue COVID-19 cocktail. Continue Decadron. Continue sedation and paralysis. Titrate FiO2 and PEEP accordingly on a daily basis based on ABG. Continue to monitor x-rays on a daily basis as well as inflammatory markers. Continue GI and DVT prophylaxis. Prognosis is extremely poor and guarded. Critical care time is over 30 minutes not including the time spent on procedures. Time with Patient: Greater than 30
[2021-02-08 12:34] LABS: Glucose,Whole Blood 150 mg/dL (75-99)
[2021-02-08 17:23] LABS: Glucose,Whole Blood 162 mg/dL (75-99)
[2021-02-08] MEDS ORDERED: WARFARIN 2 MG TAB PO ONE (18:00)
[2021-02-08] MEDS ORDERED: METOCLOPRAMIDE 5 MG/ML 2 ML VIAL IVP PRN (19:02)
--- NOTE | 2021-02-08 22:50 | P.PN ---
Subjective Patient is 60-year-old male with a known history of asthma/COPD, history of DVT, chronic low back pain, osteoarthritis and morbid obesity with BMI 46.7 presents to ER with complaints of generalized weakness and fatigue and worsening shortness of breath and exertional dyspnea. Patient states that he has been having symptoms for the past 5-6 days and his and other family members were also tested positive for covid 19 infection. Patient has been having generalized weakness and fatigue. No complaints of chest pain. Does have cough without any sputum production. No nausea vomiting or abdominal pain or diarrhea. Chest x-ray showed diffuse residual coarsening and moderate patchy airspace opacities bilaterally. Findings may represent Covid 19 pneumonia. EKG showed normal sinus rhythm Laboratory data showed WBC 7.6 hemoglobin 10.9 and platelets 167 lymphocytes 0.4 INR 1.9 and d-dimer is 1.16 Sodium 126 potassium 4.8 chloride 89 BUN 6 T5 and creatinine 1.85 calcium 7.9 AST 219 ALT 55 alk phos 63 ALT is 2347 and CRP 24.0 Procalcitonin 0.69, Covid 19 PCR detected. Patient is not vaccinated. 02/03/2021 Patient is currently in the emergency room awaiting for self care unit transfer. Patient is currently on BiPAP 16 x 6 with 100% FiO2. Patient is still having shortness of breath and he appears to be in mild distress and unable to tolerate BiPAP. Otherwise patient has been afebrile. Currently being continued on dexamethasone, warfarin dosing and multivitamins. Patient was started on ceftriaxone for possible urinary tract infection. Laboratory data showed sodium 128 potassium 4.3 chloride 91 BUN 60 and creatinine 1.8 LDH 893 and CRP 21.9 No complaints of chest pain. Patient is awake alert and oriented 3. Pulmonary is on board. 02/04/2021 Patient remains in the emergency department. Currently on BiPAP with 100% FiO2. Patient is saturating mid 80s. Sitting up in the bed. Still tachypneic and anxious. Awake alert and oriented. Laboratory showed WBC 11.2 hemoglobin 15.7 and platelets 202 lymphocytes 0.4 Sodium 131 potassium 4.3 chloride 94 bicarb is 28 BUN 75 creatinine 1.42. Urine culture is pending. Patient is being current on ceftriaxone. Patient is being continued on dexamethasone, Coumadin and multivitamins. Pulmonary is following. 02/05/2021 Patient is on BiPAP with FiO2 100%. Patient is restless and tachypneic. Pulling out tubes. Oxygen saturations around 82% to 90% while on BiPAP. Patient has been afebrile. Currently being continued on dexamethasone and Coumadin dosing. INR is 4.8 toda y. Laboratory data showed WBC 16.1 hemoglobin 16.1 platelets 170 BUN 77 creatinine 1.16 and troponin 0 0.042. Patient is also being current ceftriaxone for acute urinary tract infection. Urine culture showed no growth. Pulmonary is following. Patient does not want to get intubated. 02/06/2021 Patient was transferred to MICU. Intubated and on mechanical ventilator. Patient is sedated and multiple drips including propofol, fentanyl and Nimbex. Patient is also requiring norepinephrine. Laboratory showed WBC 20.7 hemoglobin 15.7 platelets 173 INR 5.8 Sodium 138 potassium 4.6 BUN 77 creatinine 1.43 LDH 3075 and CRP 15.1 AST 262 ALT 93 alk phos 94 and blood sugar is 188. Patient is being continued ceftriaxone, dexamethasone IV and Coumadin on hold. Patient is also on IV hydration with normal saline at 75 cc/h. Chest x-ray showed patchy infiltrates throughout both lung griffiths no change. Correlate clinically and follow-up and resolution is recommended. 02/07/2021 Patient is seen and evaluated and follow-up continues to be closely monitored in the ICU with pulmonary earth science laboratory technician following closely. Patient remains on sedation with propofol and fentanyl and is also continued on Nimbex and currently attempting to wean norepinephrine. Patient also continues on IV ceftriaxone for the possibility of a UTI although urine culture show no growth for 18 hours and will repeat pro calcitonin and consider discontinuing IV antibiotics. Patient also continues on vitamin and zinc along with Lovenox and IV dexamethasone and will continue. Pulmonary earth science laboratory technician following and patient continues to be on mechanical vent and FiO2 is at 50% with a PEEP of 14 and per nursing staff no attempts at weaning today. Chest x-ray was done and pending. Inflammatory markers continue to be elevated although trending down. 02/08/2021 This is a pleasant 60 years old male with multiple medical problems was admitted for respiratory distress secondary to bilateral Covid pneumonia and acute hypoxic respiratory failure and on the top of that bacterial superinfection is suspected with his procalcitonin elevated at 0.6 and 0.43 and patient was placed on ceftriaxone currently. Cystoscopy the ICU monitor closely and followed by pulmonary/critical care team. Labs showing leukocytosis of 16.6 while his steroids. D-dimer 1.5, LDH elevated 1966, CRP 9.0. Mildly elevated liver enzymes. He is also on warfarin with INR is subtherapeutic at 1.5. Creatinine is trending down to 1.4 down to 1.2 however patient looks like he has chronic kidney disease stage III. Currently covered with vitamin C, vitamin D, zinc, dexamethasone, ceftriaxone, normal saline 75 mL/h, warfarin and Protonix Objective - Vital Signs Vital signs: Vital Signs Temp 98.3 F 02/08/21 08:00 Pulse 57 L 02/08/21 10:00 Resp 30 H 02/08/21 10:00 BP 115/70 02/07/21 18:00 Pulse Ox 94 L 02/08/21 10:00 Intake & Output 02/07/21 02/08/21 02/08/21 18:59 06:59 18:59 Intake Total 2163.837 2152.747 316.312 Output Total 825 960 155 Balance 7652.452 1424.747 161.312 Weight 164.8 kg 164 kg Intake: IV 900 825 153 Sodium Chloride 0.9% 1, 900 825 150 000 ml @ 75 mls/hr IV . [id number] [facility] Rx#:[id number] presssure bag 3 Intake, IV Titration 1143.837 877.747 83.312 Amount Cisatracurium 200 mg In 248.409 309.962 Sodium Chloride 0.9% 180 ml @ 1 MCG/KG/MIN 9.906 mls/hr IV .[id number] [facility] Rx #:[id number] Norepinephrine 4 mg In 173.063 Sodium Chloride 0.9% 250 ml @ 0.05 MCG/KG/MIN 31. 453 mls/hr IV .Q8H5M [facility] Rx#:[id number] cefTRIAXone 1 gm In 50 Sodium Chloride 0.9% 50 ml @ 100 mls/hr IVPB Q24HR [facility] Rx#:[id number] fentaNYL (PF). 1,000 mcg 200 200 In Sodium Chloride 0.9% 80 ml @ 0.5 MCG/KG/HR 8. 255 mls/hr IV .Q12H7M [facility] Rx#:[id number] propofoL 1,000 mg In 472.365 367.785 83.312 Empty Bag 1 bag @ Titrate IV .Q0M [facility] Rx#: [id number] Tube Feeding 120 360 80 Other 90 Output: Urine 825 960 155 Other: Voiding Method Indwelling Catheter Indwelling Catheter Indwelling Catheter ABP, PAP, CO, CI - Last Documented Arterial Blood Pressure 140/56 - Exam -GENERAL: The patient is intubated and sedated HEENT: Pupils are round and equally reacting to light. EOMI. No scleral icterus. No conjunctival pallor. Normocephalic, atraumatic. No pharyngeal erythema. No thyromegaly. CARDIOVASCULAR: S1 and S2 present. No murmurs, rubs, or gallops. -PULMONARY: Chest is clear to auscultation, no wheezing . bilateral crepitation Abdomen: soft, nontender, nondistended, normoactive bowel sounds. No palpable organomegaly. MUSCULOSKELETAL: No joint swelling or deformity. EXTREMITIES: No cyanosis, clubbing, or pedal edema. NEUROLOGICAL: Gross neurological examination did not reveal any focal deficits. SKIN: No rashes. no petechiae. - Labs CBC & Chem 7: 02/08/21 05:57 02/08/21 05:57 Labs: Abnormal Lab Results - Last 24 Hours (Table) 02/07/21 02/07/21 02/08/21 Range/Units 03:45 17:21 00:51 WBC (3.8-10.6) k/uL Plt Count (150-450) k/uL Neutrophils # (1.3-7.7) k/uL Lymphocytes # (1.0-4.8) k/uL PT (9.0-12.0) sec INR (<1.2) ABG pCO2 (35-45) mmHg ABG pO2 (83-108) mmHg ABG HCO3 (21-25) mmol/L ABG Total CO2 (19-24) mmol/L Chloride (98-107) mmol/L BUN (9-20) mg/dL Glucose (74-99) mg/dL POC Glucose (mg/dL) 171 H 158 H (75-99) mg/dL Hemoglobin A1c 6.3 H (4.0-6.0) % Calcium (8.4-10.2) mg/dL 02/08/21 02/08/21 02/08/21 Range/Units 05:30 05:40 05:57 WBC 16.6 H (3.8-10.6) k/uL Plt Count 142 L (150-450) k/uL Neutrophils # 15.6 H (1.3-7.7) k/uL Lymphocytes # 0.4 L (1.0-4.8) k/uL PT 14.7 H (9.0-12.0) sec INR 1.5 H (<1.2) ABG pCO2 46 H (35-45) mmHg ABG pO2 73 L (83-108) mmHg ABG HCO3 28 H (21-25) mmol/L ABG Total CO2 30 H (19-24) mmol/L Chloride (98-107) mmol/L BUN (9-20) mg/dL Glucose (74-99) mg/dL POC Glucose (mg/dL) (75-99) mg/dL Hemoglobin A1c (4.0-6.0) % Calcium (8.4-10.2) mg/dL 02/08/21 02/08/21 Range/Units 05:57 06:11 WBC (3.8-10.6) k/uL Plt Count (150-450) k/uL Neutrophils # (1.3-7.7) k/uL Lymphocytes # (1.0-4.8) k/uL PT (9.0-12.0) sec INR (<1.2) ABG pCO2 (35-45) mmHg ABG pO2 (83-108) mmHg ABG HCO3 (21-25) mmol/L ABG Total CO2 (19-24) mmol/L Chloride 111 H (98-107) mmol/L BUN 74 H (9-20) mg/dL Glucose 184 H (74-99) mg/dL POC Glucose (mg/dL) 159 H (75-99) mg/dL Hemoglobin A1c (4.0-6.0) % Calcium 8.2 L (8.4-10.2) mg/dL Microbiology - Last 24 Hours (Table) 02/06/21 16:21 Gram Stain - Final Sputum Sputum Culture - Final Assessment and Plan Assessment: Bilateral Covid pneumonia Acute hypoxic respiratory failure Increased inflammatory markers Chronic kidney disease, stage III Acute UTI history of DVT currently on anticoagulation with Coumadin. Morbid obesity with BMI 46.7 Chronic low back pain COPD/asthma Osteoarthritis Plan: This is a pleasant 60 years old male who presents with Bilateral Covid pneumonia and hypoxia Continue with vitamin C, vitamin D, and zinc. Continue with dexamethasone Pulmonary team consult Continue with mechanical ventilation for critical care team Labs and medication were reviewed.. Continue same treatment. Continue with symptomatic treatment. Resume home medication. Monitor lytes and vitals. DVT and GI prophylaxis. Further recommendations as per clinical course of the patient DVT prophylaxis: warfarin GI Prophylaxis: Ppi Prognosis is guarded
[2021-02-08 23:40] LABS: Glucose,Whole Blood 188 mg/dL (75-99)
[2021-02-09] MEDS: CISATRACURIUM 200 MG in SODIUM CHLORIDE 0.9% 180 ML IV SCH ×3 (00:56→23:00)
[2021-02-09] MEDS: fentaNYL (PF). 1,000 MCG in SODIUM CHLORIDE 0.9% 80 ML IV SCH ×4 (01:35→20:45)
[2021-02-09] MEDS: SODIUM CHLORIDE 0.9% 1,000 ML IV SCH (04:37)
[2021-02-09 05:10] LABS: INR 1.6 (<1.2); Prothrombin Time 15.8 sec (9.0-12.0)
[2021-02-09 05:40] LABS: Glucose,Whole Blood 174 mg/dL (75-99)
[2021-02-09 05:57] LABS: ABG Base Excess 2.4 mmol/L; ABG HCO3 28 mmol/L (21-25); ABG Oxygen Saturation 97.4 % (94-97); ABG PCO2 48 mmHg (35-45); ABG PH 7.37 (7.35-7.45); ABG PO2 96 mmHg (83-108); ABG TCO2 29 mmol/L (19-24); Allen Test Performed? Yes
[2021-02-09] MEDS: ARTIFICIAL TEARS-HYPROMELLOSE DROPS 15 ML BTL BOTH EYES SCH ×6 (06:10→23:48)
[2021-02-09] MEDS: INSULIN ASPART (NovoLOG) 100 UNIT/ML VIAL SQ SCH ×4 (06:11→23:49)
--- NOTE | 2021-02-09 06:18 | XR ---
EXAMINATION TYPE: XR chest 1V DATE OF EXAM: 02/09/2021 5:23 AM COMPARISON:Multiple radiographs, with the most recent on 02/08/2021. CLINICAL INDICATION:Male, 60 years old with history of covid pneumonia; TECHNIQUE: Frontal view of the chest. FINDINGS: Lungs/Pleura: Similar multifocal airspace opacities. No evidence of pneumothorax or pleural effusion. Pulmonary vascularity: Unremarkable. Heart/mediastinum: Cardiomediastinal silhouette is slightly obscured due to overlying and adjacent op acities. Musculoskeletal: No acute osseous pathology. Lines/Tubes: Endotracheal tube with distal tip 7.9 cm above the arden Nasogastric tube with its distal tip and side-port projecting under the diaphragm. Right internal jugular central venous catheter with distal tip at the cavoatrial junction. IMPRESSION: 1. Interval retraction of endotracheal tube consider advancement of 5.0 cm for optimal placement. 2. Similar multifocal airspace opacities.
[2021-02-09 07:40] LABS: Basophils % (A) 0 %; Eosinophils % (A) 0 %; HCT 46.3 % (39.0-53.0); HGB 14.3 gm/dL (13.0-17.5); Lymphocytes # (A) 0.3 k/uL (1.0-4.8); Lymphocytes % (A) 2 %; MCH 31.5 pg (25.0-35.0); MCV 101.6 fL (80.0-100.0); Macrocytosis Slight; Mean Platelet Volume 9.4; Monocytes # (A) 0.4 k/uL (0-1.0); Monocytes % (A) 3 %; Neutrophils # (A) 12.7 k/uL (1.3-7.7); Neutrophils % (A) 94 %; Platelet Count 126 k/uL (150-450); RBC 4.55 m/uL (4.30-5.90); RDW 14.3 % (11.5-15.5); WBC 13.6 k/uL (3.8-10.6)
[2021-02-09 07:42] LABS: Albumin 2.6 g/dL (3.5-5.0); Calcium 8.2 mg/dL (8.4-10.2); Potassium 4.6 mmol/L (3.5-5.1); Total Bilirubin 0.8 mg/dL (0.2-1.3); Total Protein 5.7 g/dL (6.3-8.2)
[2021-02-09] MEDS: PANTOPRAZOLE 40 MG/10 ML VIAL IVP SCH (08:50)
[2021-02-09] MEDS: CHLORHEXIDINE GLUCONATE 15 ML CUP MUCOUS MEM SCH ×2 (08:50→20:48)
[2021-02-09] MEDS: ASCORBIC ACID 500 MG TAB PO SCH (08:50)
[2021-02-09] MEDS: CHOLECALCIFEROL 25 MCG (1000 IU) TABLET PO SCH (08:50)
[2021-02-09] MEDS: GABAPENTIN 400 MG CAP PO SCH ×2 (08:50→20:52)
[2021-02-09] MEDS: DEXAMETHASONE SOD PHOSPHATE 10 MG/ML 1 ML VIAL IVP SCH (08:50)
[2021-02-09] MEDS: ZINC SULFATE 220 MG CAP PO SCH (08:50)
[2021-02-09] MEDS: LISINOPRIL-HCTZ 10-12.5 MG 1 EACH TAB PO SCH ×2 (08:51→21:02)
[2021-02-09] MEDS: allopurinoL 300 MG TAB PO SCH ×2 (08:54→20:52)
--- NOTE | 2021-02-09 09:13 | XR ---
EXAMINATION TYPE: XR chest 1V portable DATE OF EXAM: 02/09/2021 9:05 AM COMPARISON: Same day radiograph CLINICAL INDICATION:Male, 60 years old with history of ET tube placement confirmation; TECHNIQUE: Portable AP radiograph of the chest.. FINDINGS: Lungs/Pleura: Similar multifocal airspace opacities. No evidence of pneumothorax or pleural effusion. Pulmonary vascularity: Unremarkable. Heart/mediastinum: Cardiomediastinal silhouette is unremarkable. Musculoskeletal: No acute osseous pathology. Lines/Tubes: Endotracheal tube has been advanced now with distal tip 5.0 cm above the arden Nasogastric tube with its distal tip and side-port projecting under the diaphragm. Right internal jugular central venous catheter with distal tip at the cavoatrial junction. IMPRESSION: 1. Interval advancement of endotracheal tube now in improved position 0.0 cm above the arden. 2. Remainder of the exam is unchanged
[2021-02-09] MEDS: NOREPINEPHRINE 4 MG in SODIUM CHLORIDE 0.9% 250 ML IV SCH ×3 (09:50→13:06)
[2021-02-09] MEDS: DEXTROSE 5%-0.45% NACL 1,000 ML IV SCH ×2 (10:45→23:02)
[2021-02-09 11:39] LABS: Glucose,Whole Blood 167 mg/dL (75-99)
--- NOTE | 2021-02-09 12:12 | P.PN ---
Subjective Progress Note Date: 02/09/21 Principal diagnosis: Acute hypoxic respiratory failure secondary to COVID-19 pneumonia requiring intubation and mechanical ventilation on 01/06/2021 61-year-old male patient, presented to the emergency department because of worsening shortness of breath and fatigue and weakness. He has several family members in his household tested positive for COVID 19. The patient himself is not vaccinated. His symptoms started approximately 5 or 6 days ago. He progressively became more short of breath and the patient presented to the emergency department very short of breath, hypoxic, initial pulse ox was 67% on room air oxygen. He was afebrile and he was tachycardic. His EKG showed normal sinus rhythm, sinus tachycardia, white cell count was at 7.6 with a hemoglobin of 15.9, he sodium level was 126, he had an acute kidney injury with a BUN of 65 with a creatinine of 1.8, the patient immediately checked positive for COVID 19. Lactic acid level was at 1.9. The patient was initially placed on 100% nonrebreather facemask. It improved his oxygen saturation. We are the process of switching this patient to a combination of Airvo and 100% on a beta facemasks pH chest x-ray shows some elevation of the right hemidiaphragm. The patient is morbidly obese with a BMI of 46.7. The chest x-ray also showed diffuse bilateral pulmonary infiltrates consistent with COVID 19 related pneumonia. The patient is started on steroids. inflammatory markers are still pending for now. Comorbid conditions include COPD/asthma, previous history of DVT, previous history of pancreatitis, hypertension. On 02/03/2021 patient seen in follow-up in the emergency department, he remains on BiPAP support with pressures of 16 and 6 and FiO2 of 100%, remains dyspneic, tachypneic, easily desaturates when the mask is removed to receive sips of water and oral medications. He is awake and alert, oriented 3. Answers questions appropriately. Afebrile, no completes of chest discomfort, occasional cough. Symptoms have been reviewed, CBC was unremarkable, lymphocyte count is stable at 0.44. Patient is on Coumadin, his INR today is 2.0, his d-dimer yesterday was 1.16, today sodium is improving and is up to 120, potassium is 4.3, chloride is 91, BUN is 60, creatinine is 1.8., His inflammatory markers are improving, his LDH is down to 893, CRP is still pending, his pro-calcitonin level is elevated at 0.69 suggesting possibility of underlying gastrointestinal infection, urinalysis is suggestive of acute urinary tract infection, urine culture has been sent and pending at this time. Rocephin has been added for empiric antibiotic coverage, patient is on Decadron 6 mg daily, he is on Coumadin as mentioned above, and he is receiving IV fluids with 0.9 normal saline at a rate of 75 per hour, he is on vitamin C, D and zinc. His chest x-ray from yesterday shows diffuse residual coarsening of moderate patchy airspace opacities bilaterally. On 02/05/2021 patient seen in follow-up on selective care unit, patient is currently on BiPAP with FiO2 100%, he is very restless, he frequently removes the tubing, becomes more short of breath, he desaturates, he has required lorazepam 1 mg every 4 hours for anxiety. He is currently on Decadron 6 more gram daily, he is on empiric antibiotics in the form of ceftriaxone, he is on Coumadin, and his INR today is 4.8, the rest of his lab work is still pending for today. His urinalysis showed possibility of urinary tract infection, urine culture not show any growth. No fever or chills. His last chest x-ray was done 2 days ago showing diffuse residual coarsening and moderate patchy airspace opacities bilaterally. There is chronic elevation of the right hemidiaphragm. His last set of inflammatory markers was on 02/03/2021, but noted improvements in his inflammatory markers. Reevaluated today on 02/06/2021, patient was transferred to the ICU yesterday, mostly because his pulmonary status continued to deteriorate, patient remained hypoxic, continued to remove his BiPAP mask, transferred into the ICU, placed on Precedex initially, and kept him on BiPAP, however patient continued to saturate, and I was notified about the nurses that his clinical status is getting worse, recommended immediate intubation and mechanical ventilation. Patient is now intubated, mechanically ventilated. He is on assist control rate of 30 tidal volume 450 FiO2 60% and PEEP of 14. ABG showed a pO2 of 86 pCO2 of 52 pH of 7.36, patient remains on multiple drips including propofol at 40 mcg/kg/m, fentanyl 1 mcg/kg/h Nimbex 1.5 mcg/kg/m. Patient is also requiring norepinephrine at 0.1 mcg/kg/m. LDH today is extremely high over 3000. WBC count is elevated at 20.7 hemoglobin 15.7 his electrolytes are normal however his renal profile showed a BUN of 77 creatinine 1.47 chest x-ray showed patchy bilateral infiltrates, slight improvement compared to chest x-ray prior to intubation. His INR today is 5.8, hence I plan to reverse his INR are at least give him fresh frozen plasma and vitamin K in order to safely place a central line and arterial line in this patient. Reevaluated today on 02/07/2021, patient remains in the ICU, intubated and mechanically ventilated. He is on assist control rate of 30 tidal volume 450 FiO2 50% and PEEP of 14. ABG showed a pO2 of 75 pCO2 48 pH of 7.40. Chest x- ray continues to show bilateral infiltrates with a right lower lobe consolidation. No changes were made in his ventilator settings today. Agent remains on multiple drips including propofol at 40 mcg/kg/m, fentanyl at 20 mcg/kg/h Nimbex at 2 mcg/minute, norepinephrine at 0.03 mcg/kg/m, IV fluid saline at 75 mL/h he is also on enteral feedings. LDH is improving down to 1966 CRP is 9 about the same. Electrolytes are about the same but BUN is 74 creatinine is 1.35. Again chest x-ray showed no major change since admission. Education list was reviewed, patient is on allopurinol, ascorbic acid, Rocephin, vitamin D, Decadron 6 mg IV push daily, Neurontin 1600 mg twice a day, lisinopril, insulin, lorazepam, patient is on Protonix 40 mg IV push daily, Coumadin 2 mg daily. And the patient is on zinc Reevaluated today on 02/08/2021, remains in the ICU, intubated and mechanically ventilated. Patient is on assist control rate of 30 tidal volume 450 FiO2 50% PEEP is 14. ABG showed a pO2 of 73 pCO2 46 pH of 7.40 hence no changes were made in his present ventilator settings. Chest x-ray continues to show not much of a significant change, bilateral infiltrates persist. Patient is on fentanyl at 1 mcg/kg/h, propofol at 40 mcg/kg/minute, Nimbex at 2 mcg/kg/m, norepinephrine at 0.02 mcg/kg/m. Patient is on vital AF rate 45 per hour. WBC count today 16.6 hemoglobin 14 INR 1.5 patient is on Coumadin for history of DVT. Sodium 145 potassium 4.4 chloride 111 bicarb 28 BUN is 74 creatinine is 1.22. Remains on vitamin C, Rocephin, vitamin D, Decadron 6 mg IV push daily, Neurontin, lisinopril, Protonix, Coumadin 2 mg daily and is also on zinc. Reevaluated today on 02/09/2021, patient remains in the ICU intubated and mechanically ventilated. He is on assist control rate of 30 tidal volume 450 FiO2 50% PEEP is 14. His ABG showed a pO2 of 96 pCO2 48 pH of 7.37, hence I recommended decreasing the PEEP down to 12. Patient is on multiple drips including fentanyl at 1 mcg/kg/h propofol at 40 mcg/kg/m Nimbex at 1.5 mcg/kg/m norepinephrine at 0.01 mcg/kg/m is also on enteral feeding in the form of vital AF 3 5 mL per hour. His labs showed relatively normal electrolytes except for slightly elevated sodium hence his IV fluid was changed to D545 at 50 mL per hour. Patient had relatively normal electrolytes otherwise except for the sodium being 146. His BUN is 76 creatinine is 1.24 slightly higher hence we'll increase his IV fluid today. Chest x-ray continues to show bilateral infiltrates, chest x-ray is not much different from his baseline. There may be a slight improvement in his right lower lobe consolidation. Endotracheal tube had to be advanced about to see and distally. Medications list was reviewed, patient is on allopurinol, albuterol, vitamin C, Rocephin, Peridex, vitamin D, Flexeril, Decadron 6 mg IV push daily, gabapentin, insulin as per scale, lisinopril with hydrochlorothiazide, Reglan when necessary, Protonix 40 mg IV push daily, and zinc. Objective - Vital Signs Vital signs: Vital Signs Temp 98.0 F 02/09/21 08:00 Pulse 52 L 02/09/21 10:30 Resp 30 H 02/09/21 10:30 BP 115/70 02/09/21 03:30 Pulse Ox 96 02/09/21 10:30 Intake & Output 02/08/21 02/09/21 02/09/21 18:59 06:59 18:59 Intake Total 8384.056 7761.923 749.599 Output Total 1115 1185 405 Balance 043.244 6679.923 344.599 Weight 165 kg Intake: IV 1011 858 312 Sodium Chloride 0.9% 1, 975 825 300 000 ml @ 75 mls/hr IV . [id number] [facility] Rx#:[id number] presssure bag 36 33 12 Intake, IV Titration 747.038 4995.923 347.599 Amount Cisatracurium 200 mg In 154.872 179.063 155.039 Sodium Chloride 0.9% 180 ml @ 1 MCG/KG/MIN 9.906 mls/hr IV .[id number] [facility] Rx #:[id number] Norepinephrine 4 mg In 61.018 160.569 Sodium Chloride 0.9% 250 ml @ 0.05 MCG/KG/MIN 31. 453 mls/hr IV .Q8H5M [facility] Rx#:[id number] cefTRIAXone 1 gm In 50 50 Sodium Chloride 0.9% 50 ml @ 100 mls/hr IVPB Q24HR [facility] Rx#:[id number] fentaNYL (PF). 1,000 mcg 200 178.427 In Sodium Chloride 0.9% 80 ml @ 0.5 MCG/KG/HR 8. 255 mls/hr IV .Q12H7M [facility] Rx#:[id number] propofoL 1,000 mg In 345.344 520.864 142.56 Empty Bag 1 bag @ Titrate IV .Q0M [facility] Rx#: [id number] Tube Feeding 160 540 90 Other 120 Output: Urine 1115 1185 405 Other: Voiding Method Indwelling Catheter Indwelling Catheter Indwelling Catheter ABP, PAP, CO, CI - Last Documented Arterial Blood Pressure 122/51 - Exam GENERAL EXAM: Revealed a 60-year-old white male morbidly obese intubated and mechanically ventilated. HEAD: Normocephalic/atraumatic. HEENT: PERRLA, EOMI, nonicteric, no neck masses, moist mucous membranes, endotracheal tube and orogastric tube are intact. CHEST: No chest wall deformity. Symmetrical expansion. LUNGS: Crackles bilaterally mostly at the bases. CVS: Regular rate and rhythm, normal S1 and S2, no gallops, no murmurs, no rubs ABDOMEN: Obese, Soft, nontender. No hepatosplenomegaly, normal bowel sounds, no guarding or rigidity. EXTREMITIES: No clubbing, trace of bipedal edema no cyanosis, 2+ pulses and upper and lower extremities. With venous stasis changes noted in lower extremities. 1+ bipedal edema. SKIN: No rashes, except for chronic venous stasis changes and brawny discoloration of the lower extremities. CENTRAL NERVOUS SYSTEM: Cannot assess, patient is sedated and paralyzed. PSYCHIATRIC: Cannot assess patient is sedated and paralyzed. - Labs CBC & Chem 7: 02/09/21 04:30 02/09/21 04:30 Labs: Abnormal Lab Results - Last 24 Hours (Table) 02/08/21 02/08/21 02/08/21 Range/Units 12:33 17:22 23:37 WBC (3.8-10.6) k/uL MCV (80.0-100.0) fL Plt Count (150-450) k/uL Neutrophils # (1.3-7.7) k/uL Lymphocytes # (1.0-4.8) k/uL PT (9.0-12.0) sec INR (<1.2) ABG pCO2 (35-45) mmHg ABG HCO3 (21-25) mmol/L ABG Total CO2 (19-24) mmol/L ABG O2 Saturation (94-97) % Sodium (137-145) mmol/L Chloride (98-107) mmol/L BUN (9-20) mg/dL Glucose (74-99) mg/dL POC Glucose (mg/dL) 150 H 162 H 188 H (75-99) mg/dL Calcium (8.4-10.2) mg/dL AST (17-59) U/L ALT (4-49) U/L Total Protein (6.3-8.2) g/dL Albumin (3.5-5.0) g/dL 02/09/21 02/09/21 02/09/21 Range/Units 04:30 04:30 04:30 WBC 13.6 H (3.8-10.6) k/uL MCV 101.6 H (80.0-100.0) fL Plt Count 126 L (150-450) k/uL Neutrophils # 12.7 H (1.3-7.7) k/uL Lymphocytes # 0.3 L (1.0-4.8) k/uL PT 15.8 H (9.0-12.0) sec INR 1.6 H (<1.2) ABG pCO2 (35-45) mmHg ABG HCO3 (21-25) mmol/L ABG Total CO2 (19-24) mmol/L ABG O2 Saturation (94-97) % Sodium 146 H (137-145) mmol/L Chloride 114 H (98-107) mmol/L BUN 76 H (9-20) mg/dL Glucose 200 H (74-99) mg/dL POC Glucose (mg/dL) (75-99) mg/dL Calcium 8.2 L (8.4-10.2) mg/dL AST 96 H (17-59) U/L ALT 85 H (4-49) U/L Total Protein 5.7 L (6.3-8.2) g/dL Albumin 2.6 L (3.5-5.0) g/dL 02/09/21 02/09/21 02/09/21 Range/Units 05:36 05:53 11:37 WBC (3.8-10.6) k/uL MCV (80.0-100.0) fL Plt Count (150-450) k/uL Neutrophils # (1.3-7.7) k/uL Lymphocytes # (1.0-4.8) k/uL PT (9.0-12.0) sec INR (<1.2) ABG pCO2 48 H (35-45) mmHg ABG HCO3 28 H (21-25) mmol/L ABG Total CO2 29 H (19-24) mmol/L ABG O2 Saturation 97.4 H (94-97) % Sodium (137-145) mmol/L Chloride (98-107) mmol/L BUN (9-20) mg/dL Glucose (74-99) mg/dL POC Glucose (mg/dL) 174 H 167 H (75-99) mg/dL Calcium (8.4-10.2) mg/dL AST (17-59) U/L ALT (4-49) U/L Total Protein (6.3-8.2) g/dL Albumin (3.5-5.0) g/dL Microbiology - Last 24 Hours (Table) 02/06/21 16:21 Gram Stain - Final Sputum Sputum Culture - Final Assessment and Plan Assessment: #1. Acute COVID-19, patient presented with worsening shortness of breath of 5 days duration, and she was not a candidate for Remdesivir related to severity of his hypoxia. Baricitinib was started on 02/02/2021 which will be discontinued today on 02/03/2021 related to possibility of underlying urinary tract infection. Patient was initially DO NOT RESUSCITATE CODE STATUS, however the changes CODE STATUS after she was updated on his condition when he was on the medical floor. And she reversed his CODE STATUS to full code, hence patient was transferred to the ICU on 01/06/2021, intubated and mechanically ventilated. #2. Acute hypoxic respiratory failure , requiring intubation and mechanical ventilation on 01/06, patient failed BiPAP, changes CODE STATUS from DO NOT RESUSCITATE to full code. #3. Acute kidney injury related to intravascular volume depletion and dehydration, patient is being hydrated, and we'll continue to monitor his renal status. #4. Acute hypochloremic hyponatremia, resolved. #5. Previous history of DVT on Coumadin, remains subtherapeutic, dose needs to be adjusted. 6. Obesity with BMI of 46.7 kg/m #7. Chronic back pain #8. History of COPD/asthma #9. Previous history of pancreatitis #10. Hypertension #11. Acute urinary tract infection, is strongly suspected, continue Rocephin. However urine culture came back nondiagnostic/negative Recommendations Continue ventilatory support. Adjust endotracheal tube today and advance it since it seems to be a bit proximal. Decrease PEEP to 12 from 14 today. Keep the patient otherwise on a rate of 30 tidal volume 450 FiO2 50% and PEEP is now 12 incentive 14. Continue nutritional support. Continue enteral feeding. Continue COVID-19 cocktail. Continue Decadron. Continue sedation and paralysis. Continue to monitor x-rays on a daily basis as well as inflammatory markers. Continue GI and DVT prophylaxis. Prognosis is extremely poor and guarded. Critical care time is over 30 minutes not including the time spent on procedures. Time with Patient: Greater than 30
[2021-02-09 17:16] LABS: Glucose,Whole Blood 192 mg/dL (75-99)
[2021-02-09] MEDS ORDERED: WARFARIN 3 MG TAB PO ONE (18:00)
--- NOTE | 2021-02-09 22:45 | P.PN ---
Subjective Patient is 60-year-old male with a known history of asthma/COPD, history of DVT, chronic low back pain, osteoarthritis and morbid obesity with BMI 46.7 presents to ER with complaints of generalized weakness and fatigue and worsening shortness of breath and exertional dyspnea. Patient states that he has been having symptoms for the past 5-6 days and his and other family members were also tested positive for covid 19 infection. Patient has been having generalized weakness and fatigue. No complaints of chest pain. Does have cough without any sputum production. No nausea vomiting or abdominal pain or diarrhea. Chest x-ray showed diffuse residual coarsening and moderate patchy airspace opacities bilaterally. Findings may represent Covid 19 pneumonia. EKG showed normal sinus rhythm Laboratory data showed WBC 7.6 hemoglobin 10.9 and platelets 167 lymphocytes 0.4 INR 1.9 and d-dimer is 1.16 Sodium 126 potassium 4.8 chloride 89 BUN 6 T5 and creatinine 1.85 calcium 7.9 AST 219 ALT 55 alk phos 63 ALT is 2347 and CRP 24.0 Procalcitonin 0.69, Covid 19 PCR detected. Patient is not vaccinated. 02/03/2021 Patient is currently in the emergency room awaiting for self care unit transfer. Patient is currently on BiPAP 16 x 6 with 100% FiO2. Patient is still having shortness of breath and he appears to be in mild distress and unable to tolerate BiPAP. Otherwise patient has been afebrile. Currently being continued on dexamethasone, warfarin dosing and multivitamins. Patient was started on ceftriaxone for possible urinary tract infection. Laboratory data showed sodium 128 potassium 4.3 chloride 91 BUN 60 and creatinine 1.8 LDH 893 and CRP 21.9 No complaints of chest pain. Patient is awake alert and oriented 3. Pulmonary is on board. 02/04/2021 Patient remains in the emergency department. Currently on BiPAP with 100% FiO2. Patient is saturating mid 80s. Sitting up in the bed. Still tachypneic and anxious. Awake alert and oriented. Laboratory showed WBC 11.2 hemoglobin 15.7 and platelets 202 lymphocytes 0.4 Sodium 131 potassium 4.3 chloride 94 bicarb is 28 BUN 75 creatinine 1.42. Urine culture is pending. Patient is being current on ceftriaxone. Patient is being continued on dexamethasone, Coumadin and multivitamins. Pulmonary is following. 02/05/2021 Patient is on BiPAP with FiO2 100%. Patient is restless and tachypneic. Pulling out tubes. Oxygen saturations around 82% to 90% while on BiPAP. Patient has been afebrile. Currently being continued on dexamethasone and Coumadin dosing. INR is 4.8 toda y. Laboratory data showed WBC 16.1 hemoglobin 16.1 platelets 170 BUN 77 creatinine 1.16 and troponin 0 0.042. Patient is also being current ceftriaxone for acute urinary tract infection. Urine culture showed no growth. Pulmonary is following. Patient does not want to get intubated. 02/06/2021 Patient was transferred to MICU. Intubated and on mechanical ventilator. Patient is sedated and multiple drips including propofol, fentanyl and Nimbex. Patient is also requiring norepinephrine. Laboratory showed WBC 20.7 hemoglobin 15.7 platelets 173 INR 5.8 Sodium 138 potassium 4.6 BUN 77 creatinine 1.43 LDH 3075 and CRP 15.1 AST 262 ALT 93 alk phos 94 and blood sugar is 188. Patient is being continued ceftriaxone, dexamethasone IV and Coumadin on hold. Patient is also on IV hydration with normal saline at 75 cc/h. Chest x-ray showed patchy infiltrates throughout both lung griffiths no change. Correlate clinically and follow-up and resolution is recommended. 02/07/2021 Patient is seen and evaluated and follow-up continues to be closely monitored in the ICU with pulmonary cork sorter following closely. Patient remains on sedation with propofol and fentanyl and is also continued on Nimbex and currently attempting to wean norepinephrine. Patient also continues on IV ceftriaxone for the possibility of a UTI although urine culture show no growth for 18 hours and will repeat pro calcitonin and consider discontinuing IV antibiotics. Patient also continues on vitamin and zinc along with Lovenox and IV dexamethasone and will continue. Pulmonary cork sorter following and patient continues to be on mechanical vent and FiO2 is at 50% with a PEEP of 14 and per nursing staff no attempts at weaning today. Chest x-ray was done and pending. Inflammatory markers continue to be elevated although trending down. 02/08/2021 This is a pleasant 60 years old male with multiple medical problems was admitted for respiratory distress secondary to bilateral Covid pneumonia and acute hypoxic respiratory failure and on the top of that bacterial superinfection is suspected with his procalcitonin elevated at 0.6 and 0.43 and patient was placed on ceftriaxone currently. Cystoscopy the ICU monitor closely and followed by pulmonary/critical care team. Labs showing leukocytosis of 16.6 while his steroids. D-dimer 1.5, LDH elevated 1966, CRP 9.0. Mildly elevated liver enzymes. He is also on warfarin with INR is subtherapeutic at 1.5. Creatinine is trending down to 1.4 down to 1.2 however patient looks like he has chronic kidney disease stage III. Currently covered with vitamin C, vitamin D, zinc, dexamethasone, ceftriaxone, normal saline 75 mL/h, warfarin and Protonix 02/09/2021 The patient remains in the ICU sedated and intubated on mechanical ventilation with pulmonary/critical care team following him closely. Patient remains clinically the same is still tachypneic he still on critical condition. WBC slightly better 13.6, liver enzymes mildly elevated, INR is 1.6 and today he will receive 3 mg of iodine. Sodium slightly elevated 146 and his IV fluid was changed to D5 half-normal saline. He remains on ceftriaxone, dexamethasone, multiple vitamins and warfarin Objective - Vital Signs Vital signs: Vital Signs Temp 98.8 F 02/09/21 20:00 Pulse 55 L 02/09/21 22:00 Resp 31 H 02/09/21 22:00 BP 109/53 02/09/21 20:00 Pulse Ox 95 02/09/21 22:00 Intake & Output 02/09/21 02/09/21 02/10/21 06:59 18:59 06:59 Intake Total 2556.923 1926.472 693.07 Output Total 1185 1246 260 Balance 1371.923 680.472 433.07 Weight 165 kg Intake: IV 858 339 9 Sodium Chloride 0.9% 1, 825 300 000 ml @ 75 mls/hr IV . [id number] [facility] Rx#:[id number] presssure bag 33 39 9 Intake, IV Titration 7518.712 3457.472 474.07 Amount Cisatracurium 200 mg In 179.063 155.039 Sodium Chloride 0.9% 180 ml @ 1 MCG/KG/MIN 9.906 mls/hr IV .[id number] [facility] Rx #:[id number] Dextrose 5%-0.45% NaCl 1, 675 225 000 ml @ 75 mls/hr IV . [id number] [facility] Rx#:[id number] Norepinephrine 4 mg In 160.569 32.413 49.07 Sodium Chloride 0.9% 250 ml @ 0.05 MCG/KG/MIN 31. 453 mls/hr IV .[id number] [facility] Rx#:[id number] cefTRIAXone 1 gm In 50 Sodium Chloride 0.9% 50 ml @ 100 mls/hr IVPB Q24HR [facility] Rx#:[id number] fentaNYL (PF). 1,000 mcg 178.427 100 100 In Sodium Chloride 0.9% 80 ml @ 0.5 MCG/KG/HR 8. 255 mls/hr IV .Q12H7M [facility] Rx#:[id number] propofoL 1,000 mg In 520.864 395.02 100 Empty Bag 1 bag @ Titrate IV .Q0M [facility] Rx#: [id number] Tube Feeding 540 180 180 Other 120 30 Output: Urine 1185 1246 260 Other: Voiding Method Indwelling Catheter Indwelling Catheter Indwelling Catheter ABP, PAP, CO, CI - Last Documented Arterial Blood Pressure 108/43 - Exam -GENERAL: The patient is intubated and sedated HEENT: Pupils are round and equally reacting to light. EOMI. No scleral icterus. No conjunctival pallor. Normocephalic, atraumatic. No pharyngeal erythema. No thyromegaly. CARDIOVASCULAR: S1 and S2 present. No murmurs, rubs, or gallops. -PULMONARY: Chest is clear to auscultation, no wheezing . bilateral crepitation Abdomen: soft, nontender, nondistended, normoactive bowel sounds. No palpable organomegaly. MUSCULOSKELETAL: No joint swelling or deformity. EXTREMITIES: No cyanosis, clubbing, or pedal edema. NEUROLOGICAL: Gross neurological examination did not reveal any focal deficits. SKIN: No rashes. no petechiae. - Labs CBC & Chem 7: 02/09/21 04:30 02/09/21 04:30 Labs: Abnormal Lab Results - Last 24 Hours (Table) 02/08/21 02/09/21 02/09/21 Range/Units 23:37 04:30 04:30 WBC 13.6 H (3.8-10.6) k/uL MCV 101.6 H (80.0-100.0) fL Plt Count 126 L (150-450) k/uL Neutrophils # 12.7 H (1.3-7.7) k/uL Lymphocytes # 0.3 L (1.0-4.8) k/uL PT 15.8 H (9.0-12.0) sec INR 1.6 H (<1.2) ABG pCO2 (35-45) mmHg ABG HCO3 (21-25) mmol/L ABG Total CO2 (19-24) mmol/L ABG O2 Saturation (94-97) % Sodium (137-145) mmol/L Chloride (98-107) mmol/L BUN (9-20) mg/dL Glucose (74-99) mg/dL POC Glucose (mg/dL) 188 H (75-99) mg/dL Calcium (8.4-10.2) mg/dL AST (17-59) U/L ALT (4-49) U/L Total Protein (6.3-8.2) g/dL Albumin (3.5-5.0) g/dL 02/09/21 02/09/21 02/09/21 Range/Units 04:30 05:36 05:53 WBC (3.8-10.6) k/uL MCV (80.0-100.0) fL Plt Count (150-450) k/uL Neutrophils # (1.3-7.7) k/uL Lymphocytes # (1.0-4.8) k/uL PT (9.0-12.0) sec INR (<1.2) ABG pCO2 48 H (35-45) mmHg ABG HCO3 28 H (21-25) mmol/L ABG Total CO2 29 H (19-24) mmol/L ABG O2 Saturation 97.4 H (94-97) % Sodium 146 H (137-145) mmol/L Chloride 114 H (98-107) mmol/L BUN 76 H (9-20) mg/dL Glucose 200 H (74-99) mg/dL POC Glucose (mg/dL) 174 H (75-99) mg/dL Calcium 8.2 L (8.4-10.2) mg/dL AST 96 H (17-59) U/L ALT 85 H (4-49) U/L Total Protein 5.7 L (6.3-8.2) g/dL Albumin 2.6 L (3.5-5.0) g/dL 02/09/21 02/09/21 Range/Units 11:37 17:15 WBC (3.8-10.6) k/uL MCV (80.0-100.0) fL Plt Count (150-450) k/uL Neutrophils # (1.3-7.7) k/uL Lymphocytes # (1.0-4.8) k/uL PT (9.0-12.0) sec INR (<1.2) ABG pCO2 (35-45) mmHg ABG HCO3 (21-25) mmol/L ABG Total CO2 (19-24) mmol/L ABG O2 Saturation (94-97) % Sodium (137-145) mmol/L Chloride (98-107) mmol/L BUN (9-20) mg/dL Glucose (74-99) mg/dL POC Glucose (mg/dL) 167 H 192 H (75-99) mg/dL Calcium (8.4-10.2) mg/dL AST (17-59) U/L ALT (4-49) U/L Total Protein (6.3-8.2) g/dL Albumin (3.5-5.0) g/dL Assessment and Plan Assessment: Bilateral Covid pneumonia Acute hypoxic respiratory failure Increased inflammatory markers Chronic kidney disease, stage III Acute UTI history of DVT currently on anticoagulation with Coumadin. Morbid obesity with BMI 46.7 Chronic low back pain COPD/asthma Osteoarthritis Plan: This is a pleasant 60 years old male who presents with Bilateral Covid pneumonia and hypoxia Continue with vitamin C, vitamin D, and zinc. Continue with dexamethasone Pulmonary team consult Continue with mechanical ventilation for critical care team Labs and medication were reviewed.. Continue same treatment. Continue with symptomatic treatment. Resume home medication. Monitor lytes and vitals. DVT and GI prophylaxis. Further recommendations as per clinical course of the patient DVT prophylaxis: warfarin GI Prophylaxis: Ppi Prognosis is guarded
[2021-02-09 23:45] LABS: Glucose,Whole Blood 201 mg/dL (75-99)
[2021-02-10] MEDS: fentaNYL (PF). 1,000 MCG in SODIUM CHLORIDE 0.9% 80 ML IV SCH ×3 (03:22→19:32)
[2021-02-10 03:29] LABS: HCT 42.4 % (39.0-53.0); HGB 13.3 gm/dL (13.0-17.5); Hypochromasia Slight; MCH 32.3 pg (25.0-35.0); MCHC 31.4 g/dL (31.0-37.0); MCV 102.8 fL (80.0-100.0); Macrocytosis Slight; RBC 4.12 m/uL (4.30-5.90); RDW 14.4 % (11.5-15.5); WBC 9.6 k/uL (3.8-10.6)
[2021-02-10 03:35] LABS: Albumin 2.4 g/dL (3.5-5.0); Potassium 4.9 mmol/L (3.5-5.1); Total Bilirubin 0.6 mg/dL (0.2-1.3); Total Protein 5.2 g/dL (6.3-8.2)
[2021-02-10 04:14] LABS: INR 1.5 (<1.2); Prothrombin Time 15.5 sec (9.0-12.0)
[2021-02-10] MEDS: ARTIFICIAL TEARS-HYPROMELLOSE DROPS 15 ML BTL BOTH EYES SCH ×5 (05:09→20:01)
[2021-02-10 05:20] LABS: Glucose,Whole Blood 185 mg/dL (75-99)
[2021-02-10] MEDS: INSULIN ASPART (NovoLOG) 100 UNIT/ML VIAL SQ SCH ×3 (05:30→18:15)
[2021-02-10 05:58] LABS: ABG Base Excess 1.9 mmol/L; ABG HCO3 27 mmol/L (21-25); ABG Oxygen Saturation 94.9 % (94-97); ABG PCO2 49 mmHg (35-45); ABG PH 7.35 (7.35-7.45); ABG PO2 73 mmHg (83-108); ABG TCO2 29 mmol/L (19-24); Allen Test Performed? Yes
[2021-02-10 07:13] LABS: Platelet Count 94 k/uL (150-450)
[2021-02-10 07:20] LABS: Band Neutrophils % 1 %; Lymphocytes # (M) 0.19 k/uL (1.0-4.8); Metamyelocytes % 1 %; Monocytes # (M) 0.29 k/uL (0-1.0); Myelocytes % 1 %; Neutrophils % (M) 93 %; Nucleated Red Blood Cells 0 /100 WBC (0-0); Total Cells Counted 200
[2021-02-10 07:22] LABS: Large Platelets Present
--- NOTE | 2021-02-10 08:13 | XR ---
EXAMINATION TYPE: XR chest 1V DATE OF EXAM: 02/10/2021 COMPARISON: Chest x-ray 02/09/2021 HISTORY: Covid pneumonia TECHNIQUE: Single frontal view of the chest is obtained. FINDINGS: Endotracheal tube, NG tube, right jugular central venous catheter are noted and overlying appropriate positions. Patient is rotated. Bilateral airspace disease persists, the right hemidiaphra gm is obscured. Cardiac mediastinal sweat shows a similar appearance. No evident pneumothorax or pleu ral effusion. Right hemidiaphragm is elevated. Apical pleural thickening on the left is unchanged. IMPRESSION: Correlate for pneumonia, ARDS, congestive heart failure not excluded
[2021-02-10] MEDS: NOREPINEPHRINE 4 MG in SODIUM CHLORIDE 0.9% 250 ML IV SCH ×3 (08:58→18:15)
[2021-02-10] MEDS: allopurinoL 300 MG TAB PO SCH ×2 (09:09→20:01)
[2021-02-10] MEDS: ASCORBIC ACID 500 MG TAB PO SCH (09:10)
[2021-02-10] MEDS: CHOLECALCIFEROL 25 MCG (1000 IU) TABLET PO SCH (09:10)
[2021-02-10] MEDS: GABAPENTIN 400 MG CAP PO SCH ×2 (09:10→20:01)
[2021-02-10] MEDS: ZINC SULFATE 220 MG CAP PO SCH (09:10)
[2021-02-10] MEDS: CHLORHEXIDINE GLUCONATE 15 ML CUP MUCOUS MEM SCH ×2 (09:10→20:01)
[2021-02-10] MEDS: DEXAMETHASONE SOD PHOSPHATE 10 MG/ML 1 ML VIAL IVP SCH (09:11)
[2021-02-10] MEDS: LISINOPRIL-HCTZ 10-12.5 MG 1 EACH TAB PO SCH ×2 (09:11→19:44)
[2021-02-10] MEDS ORDERED: FUROSEMIDE 10 MG/ML 10 ML VIAL IV STA (09:19)
[2021-02-10] MEDS: PANTOPRAZOLE 40 MG/10 ML VIAL IVP SCH (09:24)
[2021-02-10 12:35] LABS: Glucose,Whole Blood 152 mg/dL (75-99)
--- NOTE | 2021-02-10 13:31 | P.PN ---
Subjective Progress Note Date: 02/10/21 Principal diagnosis: Coronavirus associated pneumonia. On 02/05/2021 patient seen in follow-up on selective care unit, patient is currently on BiPAP with FiO2 100%, he is very restless, he frequently removes the tubing, becomes more short of breath, he desaturates, he has required lorazepam 1 mg every 4 hours for anxiety. He is currently on Decadron 6 more gram daily, he is on empiric antibiotics in the form of ceftriaxone, he is on Coumadin, and his INR today is 4.8, the rest of his lab work is still pending for today. His urinalysis showed possibility of urinary tract infection, urine culture not show any growth. No fever or chills. His last chest x-ray was done 2 days ago showing diffuse residual coarsening and moderate patchy airspace opacities bilaterally. There is chronic elevation of the right hemidiaphragm. His last set of inflammatory markers was on 02/03/2021, but noted improvements in his inflammatory markers. Reevaluated today on 02/06/2021, patient was transferred to the ICU yesterday, mostly because his pulmonary status continued to deteriorate, patient remained hypoxic, continued to remove his BiPAP mask, transferred into the ICU, placed on Precedex initially, and kept him on BiPAP, however patient continued to saturate, and I was notified about the nurses that his clinical status is getting worse, recommended immediate intubation and mechanical ventilation. Patient is now intubated, mechanically ventilated. He is on assist control rate of 30 tidal volume 450 FiO2 60% and PEEP of 14. ABG showed a pO2 of 86 pCO2 of 52 pH of 7.36, patient remains on multiple drips including propofol at 40 mcg/kg/m, fentanyl 1 mcg/kg/h Nimbex 1.5 mcg/kg/m. Patient is also requiring norepinephrine at 0.1 mcg/kg/m. LDH today is extremely high over 3000. WBC count is elevated at 20.7 hemoglobin 15.7 his electrolytes are normal however his renal profile showed a BUN of 77 creatinine 1.47 chest x-ray showed patchy bilateral infiltrates, slight improvement compared to chest x-ray prior to intubation. His INR today is 5.8, hence I plan to reverse his INR are at least give him fresh frozen plasma and vitamin K in order to safely place a central line and arterial line in this patient. Reevaluated today on 02/07/2021, patient remains in the ICU, intubated and mechanically ventilated. He is on assist control rate of 30 tidal volume 450 Fi O2 50% and PEEP of 14. ABG showed a pO2 of 75 pCO2 48 pH of 7.40. Chest x-ray continues to show bilateral infiltrates with a right lower lobe consolidation. No changes were made in his ventilator settings today. Agent remains on multiple drips including propofol at 40 mcg/kg/m, fentanyl at 20 mcg/kg/h Nimbex at 2 mcg/minute, norepinephrine at 0.03 mcg/kg/m, IV fluid saline at 75 mL/h he is also on enteral feedings. LDH is improving down to 1966 CRP is 9 about the same. Electrolytes are about the same but BUN is 74 creatinine is 1.35. Again chest x-ray showed no major change since admission. Education list was reviewed, patient is on allopurinol, ascorbic acid, Rocephin, vitamin D, De cadron 6 mg IV push daily, Neurontin 1600 mg twice a day, lisinopril, insulin, lorazepam, patient is on Protonix 40 mg IV push daily, Coumadin 2 mg daily. And the patient is on zinc Reevaluated today on 02/08/2021, remains in the ICU, intubated and mechanically ventilated. Patient is on assist control rate of 30 tidal volume 450 FiO2 50% PEEP is 14. ABG showed a pO2 of 73 pCO2 46 pH of 7.40 hence no changes were made in his present ventilator settings. Chest x-ray continues to show not much of a significant change, bilateral infiltrates persist. Patient is on fentanyl at 1 mcg/kg/h, propofol at 40 mcg/kg/minute, Nimbex at 2 mcg/kg/m, norepinephrine at 0.02 mcg/kg/m. Patient is on vital AF rate 45 per hour. WBC count today 16.6 hemoglobin 14 INR 1.5 patient is on Coumadin for history of DVT. Sodium 145 potassium 4.4 chloride 111 bicarb 28 BUN is 74 creatinine is 1.22. Remains on vitamin C, Rocephin, vitamin D, Decadron 6 mg IV push daily, Neurontin, lisinopril, Protonix, Coumadin 2 mg daily and is also on zinc. Reevaluated today on 02/09/2021, patient remains in the ICU intubated and mechanically ventilated. He is on assist control rate of 30 tidal volume 450 FiO2 50% PEEP is 14. His ABG showed a pO2 of 96 pCO2 48 pH of 7.37, hence I recommended decreasing the PEEP down to 12. Patient is on multiple drips including fentanyl at 1 mcg/kg/h propofol at 40 mcg/kg/m Nimbex at 1.5 mcg/kg/m norepinephrine at 0.01 mcg/kg/m is also on enteral feeding in the form of vital AF 3 5 mL per hour. His labs showed relatively normal electrolytes except for slightly elevated sodium hence his IV fluid was changed to D545 at 50 mL per hour. Patient had relatively normal electrolytes otherwise except for the sodium being 146. His BUN is 76 creatinine is 1.24 slightly higher hence we'll increase his IV fluid today. Chest x-ray continues to show bilateral infiltrates, chest x-ray is not much different from his baseline. There may be a slight improvement in his right lower lobe consolidation. Endotracheal tube had to be advanced about to see and distally. Medications list was reviewed, patient is on allopurinol, albuterol, vitamin C, Rocephin, Peridex, vitamin D, Flexeril, Decadron 6 mg IV push daily, gabapentin, insulin as per scale, lisinopril with hydrochlorothiazide, Reglan when necessary, Protonix 40 mg IV push daily, and zinc. Progress note dated 02/10/2021. This is a 60-year-old male seen in the intensive care unit, room 250. He was admitted to the hospital on February 02, he moved to the intensive care unit on February 05. He was intubated on February 05, for refractory hypoxemia secondary to coronavirus associated pneumonia. He remains on the mechanical ventilator, on the volume assist control mode, rate 30, tidal volume 450, FiO2 50%, and PEEP of 12. Blood gases show pO2 72, pCO2 of 49, and a pH is 7.35. The patient remains on Nimbex at 1.5 mcg/kg/m, D5.45 at 75 mL an hour, propofol at 40 mcg/kg/m, and fentanyl 1 mcg/kg/h. The patient's also on a small dose of norepinephrine at 0.006 mcg/kg/m, and receiving vital AF 1.2 at 45 mL an hour. The patient's IV will be discontinued. We'll add some Lasix to his regimen. We will DC his ceftriaxone. White count 9.6, hemoglobin 13.3, hematocrit 42.4, and platelet count 94,000. PT 15.5 with an INR 1.5. Sodium 145, potassium 4.9, chlorides 114, CO2 25, anion gap 6, BUN 88, creatinine 1.16, with an albumin of 2.4. Chest x-ray shows diffuse bilateral infiltrates. Objective - Vital Signs Vital signs: Vital Signs Temp 97.9 F 02/10/21 12:00 Pulse 54 L 02/10/21 13:00 Resp 30 H 02/10/21 13:00 BP 105/44 02/10/21 12:00 Pulse Ox 97 02/10/21 13:00 Intake & Output 02/09/21 02/10/21 02/10/21 18:59 06:59 18:59 Intake Total 4656.601 5050.261 909.332 Output Total 4198 478 7914 Balance 727.421 3316.261 -270.668 Weight 170.7 kg 170.7 kg Intake: IV 339 33 21 Sodium Chloride 0.9% 1, 300 000 ml @ 75 mls/hr IV . [id number] [facility] Rx#:[id number] presssure bag 39 33 21 Intake, IV Titration 0981.102 6333.261 503.332 Amount Cisatracurium 200 mg In 155.039 172.871 Sodium Chloride 0.9% 180 ml @ 1 MCG/KG/MIN 9.906 mls/hr IV .[id number] [facility] Rx #:[id number] Dextrose 5%-0.45% NaCl 1, 675 825 250 000 ml @ 20 mls/hr IV . Q24H [facility] Rx#:[id number] Norepinephrine 4 mg In 32.413 49.07 9.772 Sodium Chloride 0.9% 250 ml @ 0.05 MCG/KG/MIN 31. 453 mls/hr IV .Q8H5M [facility] Rx#:[id number] cefTRIAXone 1 gm In 50 Sodium Chloride 0.9% 50 ml @ 100 mls/hr IVPB Q24HR [facility] Rx#:[id number] fentaNYL (PF). 1,000 mcg 100 200 100 In Sodium Chloride 0.9% 80 ml @ 0.5 MCG/KG/HR 8. 255 mls/hr IV .Q12H7M [facility] Rx#:[id number] propofoL 1,000 mg In 395.02 465.32 143.56 Empty Bag 1 bag @ Titrate IV .Q0M [facility] Rx#: [id number] Tube Feeding 180 540 295 Other 90 90 Output: Urine 8965 967 9726 Other: Voiding Method Indwelling Catheter Indwelling Catheter Indwelling Catheter ABP, PAP, CO, CI - Last Documented Arterial Blood Pressure 120/45 - Exam No acute distress, sedated, and paralyzed, with an orally placed endotracheal tube and NG tube.. HEENT examination is grossly unremarkable. Neck supple. Full range of motion. No adenopathy thyromegaly or neck vein distention. Cardiovascular examination reveals regular rhythm rate. S1-S2 normal. No S3 or S4. No discernible murmur noted. Heart rate is 54 bpm. Heart sounds are diminished. Lungs reveal coarse bilateral rhonchi. No wheezes or crackles. Breath sounds are equal bilaterally. Saturations are 97%. Abdomen soft bowel sounds are heard. No masses or tenderness. Extremities reveal chronic venous stasis changes, and bilateral lateral lower extremity edema. No cyanosis or clubbing. Skin is without rash or lesion. Neurologic examination cannot be adequately assessed as the patient's currently sedated and paralyzed. - Labs CBC & Chem 7: 02/10/21 03:10 02/10/21 03:10 Labs: Abnormal Lab Results - Last 24 Hours (Table) 02/09/21 02/09/21 02/10/21 Range/Units 17:15 23:42 03:10 RBC (4.30-5.90) m/uL MCV (80.0-100.0) fL Plt Count (150-450) k/uL Neutrophils # (Manual) (1.3-7.7) k/uL Lymphocytes # (Manual) (1.0-4.8) k/uL Metamyelocytes # (Man) (0) k/uL Myelocytes # (Manual) (0) k/uL PT 15.5 H (9.0-12.0) sec INR 1.5 H (<1.2) ABG pCO2 (35-45) mmHg ABG pO2 (83-108) mmHg ABG HCO3 (21-25) mmol/L ABG Total CO2 (19-24) mmol/L Chloride (98-107) mmol/L BUN (9-20) mg/dL Glucose (74-99) mg/dL POC Glucose (mg/dL) 192 H 201 H (75-99) mg/dL Calcium (8.4-10.2) mg/dL AST (17-59) U/L ALT (4-49) U/L Total Protein (6.3-8.2) g/dL Albumin (3.5-5.0) g/dL 02/10/21 02/10/21 02/10/21 Range/Units 03:10 03:10 05:19 RBC 4.12 L (4.30-5.90) m/uL MCV 102.8 H (80.0-100.0) fL Plt Count 94 L (150-450) k/uL Neutrophils # (Manual) 9.00 H (1.3-7.7) k/uL Lymphocytes # (Manual) 0.19 L (1.0-4.8) k/uL Metamyelocytes # (Man) 0.10 H (0) k/uL Myelocytes # (Manual) 0.10 H (0) k/uL PT (9.0-12.0) sec INR (<1.2) ABG pCO2 (35-45) mmHg ABG pO2 (83-108) mmHg ABG HCO3 (21-25) mmol/L ABG Total CO2 (19-24) mmol/L Chloride 114 H (98-107) mmol/L BUN 88 H (9-20) mg/dL Glucose 198 H (74-99) mg/dL POC Glucose (mg/dL) 185 H (75-99) mg/dL Calcium 8.0 L (8.4-10.2) mg/dL AST 100 H (17-59) U/L ALT 92 H (4-49) U/L Total Protein 5.2 L (6.3-8.2) g/dL Albumin 2.4 L (3.5-5.0) g/dL 02/10/21 02/10/21 Range/Units 05:54 12:33 RBC (4.30-5.90) m/uL MCV (80.0-100.0) fL Plt Count (150-450) k/uL Neutrophils # (Manual) (1.3-7.7) k/uL Lymphocytes # (Manual) (1.0-4.8) k/uL Metamyelocytes # (Man) (0) k/uL Myelocytes # (Manual) (0) k/uL PT (9.0-12.0) sec INR (<1.2) ABG pCO2 49 H (35-45) mmHg ABG pO2 73 L (83-108) mmHg ABG HCO3 27 H (21-25) mmol/L ABG Total CO2 29 H (19-24) mmol/L Chloride (98-107) mmol/L BUN (9-20) mg/dL Glucose (74-99) mg/dL POC Glucose (mg/dL) 152 H (75-99) mg/dL Calcium (8.4-10.2) mg/dL AST (17-59) U/L ALT (4-49) U/L Total Protein (6.3-8.2) g/dL Albumin (3.5-5.0) g/dL Assessment and Plan Assessment: Acute hypoxemic respiratory failure secondary to coronavirus associated p neumonia, status post intubation and mechanical ventilation on 02/05/2021. Acute kidney injury. Previous history of DVT. Obesity. Chronic back pain. History of COPD/asthma. Prior history of pancreatitis. History of essential hypertension. Acute urinary tract infection. Plan: Plan dated 02/10/2021. The patient is way ahead on fluids, hence, his fluids to be cut back. We will make them KVO. The patient will be given a dose of IV Lasix. We'll DC the ceftriaxone at this time. We continue with enteral feedings and nutritional support, and vitamin cocktail, as well as Decadron, and blood thinner. Additional recommendations and suggestions are forthcoming. Prognosis is guarded. The patient is still on 50% PEEP of 12. He's been intubated since the eighth. He may require tracheostomy and PEG tube placement should he not show improvement. Time with Patient: Greater than 30
[2021-02-10] MEDS: DEXTROSE 5%-0.45% NACL 1,000 ML IV SCH (14:25)
[2021-02-10] MEDS ORDERED: WARFARIN 3 MG TAB PO ONE (18:00)
[2021-02-10 18:04] LABS: Glucose,Whole Blood 123 mg/dL (75-99)
[2021-02-10] MEDS ORDERED: fentaNYL (PF) 50 MCG/ML 20 ML VIAL ONE (19:27)
[2021-02-10 22:55] LABS: Glucose,Whole Blood 120 mg/dL (75-99)
--- NOTE | 2021-02-10 23:13 | P.PN ---
Subjective Patient is 60-year-old male with a known history of asthma/COPD, history of DVT, chronic low back pain, osteoarthritis and morbid obesity with BMI 46.7 presents to ER with complaints of generalized weakness and fatigue and worsening shortness of breath and exertional dyspnea. Patient states that he has been having symptoms for the past 5-6 days and his and other family members were also tested positive for covid 19 infection. Patient has been having generalized weakness and fatigue. No complaints of chest pain. Does have cough without any sputum production. No nausea vomiting or abdominal pain or diarrhea. Chest x-ray showed diffuse residual coarsening and moderate patchy airspace opacities bilaterally. Findings may represent Covid 19 pneumonia. EKG showed normal sinus rhythm Laboratory data showed WBC 7.6 hemoglobin 10.9 and platelets 167 lymphocytes 0.4 INR 1.9 and d-dimer is 1.16 Sodium 126 potassium 4.8 chloride 89 BUN 6 T5 and creatinine 1.85 calcium 7.9 AST 219 ALT 55 alk phos 63 ALT is 2347 and CRP 24.0 Procalcitonin 0.69, Covid 19 PCR detected. Patient is not vaccinated. 02/03/2021 Patient is currently in the emergency room awaiting for self care unit transfer. Patient is currently on BiPAP 16 x 6 with 100% FiO2. Patient is still having shortness of breath and he appears to be in mild distress and unable to tolerate BiPAP. Otherwise patient has been afebrile. Currently being continued on dexamethasone, warfarin dosing and multivitamins. Patient was started on ceftriaxone for possible urinary tract infection. Laboratory data showed sodium 128 potassium 4.3 chloride 91 BUN 60 and creatinine 1.8 LDH 893 and CRP 21.9 No complaints of chest pain. Patient is awake alert and oriented 3. Pulmonary is on board. 02/04/2021 Patient remains in the emergency department. Currently on BiPAP with 100% FiO2. Patient is saturating mid 80s. Sitting up in the bed. Still tachypneic and anxious. Awake alert and oriented. Laboratory showed WBC 11.2 hemoglobin 15.7 and platelets 202 lymphocytes 0.4 Sodium 131 potassium 4.3 chloride 94 bicarb is 28 BUN 75 creatinine 1.42. Urine culture is pending. Patient is being current on ceftriaxone. Patient is being continued on dexamethasone, Coumadin and multivitamins. Pulmonary is following. 02/05/2021 Patient is on BiPAP with FiO2 100%. Patient is restless and tachypneic. Pulling out tubes. Oxygen saturations around 82% to 90% while on BiPAP. Patient has been afebrile. Currently being continued on dexamethasone and Coumadin dosing. INR is 4.8 toda y. Laboratory data showed WBC 16.1 hemoglobin 16.1 platelets 170 BUN 77 creatinine 1.16 and troponin 0 0.042. Patient is also being current ceftriaxone for acute urinary tract infection. Urine culture showed no growth. Pulmonary is following. Patient does not want to get intubated. 02/06/2021 Patient was transferred to MICU. Intubated and on mechanical ventilator. Patient is sedated and multiple drips including propofol, fentanyl and Nimbex. Patient is also requiring norepinephrine. Laboratory showed WBC 20.7 hemoglobin 15.7 platelets 173 INR 5.8 Sodium 138 potassium 4.6 BUN 77 creatinine 1.43 LDH 3075 and CRP 15.1 AST 262 ALT 93 alk phos 94 and blood sugar is 188. Patient is being continued ceftriaxone, dexamethasone IV and Coumadin on hold. Patient is also on IV hydration with normal saline at 75 cc/h. Chest x-ray showed patchy infiltrates throughout both lung griffiths no change. Correlate clinically and follow-up and resolution is recommended. 02/07/2021 Patient is seen and evaluated and follow-up continues to be closely monitored in the ICU with pulmonary assistant store leader following closely. Patient remains on sedation with propofol and fentanyl and is also continued on Nimbex and currently attempting to wean norepinephrine. Patient also continues on IV ceftriaxone for the possibility of a UTI although urine culture show no growth for 18 hours and will repeat pro calcitonin and consider discontinuing IV antibiotics. Patient also continues on vitamin and zinc along with Lovenox and IV dexamethasone and will continue. Pulmonary assistant store leader following and patient continues to be on mechanical vent and FiO2 is at 50% with a PEEP of 14 and per nursing staff no attempts at weaning today. Chest x-ray was done and pending. Inflammatory markers continue to be elevated although trending down. 02/08/2021 This is a pleasant 60 years old male with multiple medical problems was admitted for respiratory distress secondary to bilateral Covid pneumonia and acute hypoxic respiratory failure and on the top of that bacterial superinfection is suspected with his procalcitonin elevated at 0.6 and 0.43 and patient was placed on ceftriaxone currently. Cystoscopy the ICU monitor closely and followed by pulmonary/critical care team. Labs showing leukocytosis of 16.6 while his steroids. D-dimer 1.5, LDH elevated 1966, CRP 9.0. Mildly elevated liver enzymes. He is also on warfarin with INR is subtherapeutic at 1.5. Creatinine is trending down to 1.4 down to 1.2 however patient looks like he has chronic kidney disease stage III. Currently covered with vitamin C, vitamin D, zinc, dexamethasone, ceftriaxone, normal saline 75 mL/h, warfarin and Protonix 02/09/2021 The patient remains in the ICU sedated and intubated on mechanical ventilation with pulmonary/critical care team following him closely. Patient remains clinically the same is still tachypneic he still on critical condition. WBC slightly better 13.6, liver enzymes mildly elevated, INR is 1.6 and today he will receive 3 mg of iodine. Sodium slightly elevated 146 and his IV fluid was changed to D5 half-normal saline. He remains on ceftriaxone, dexamethasone, multiple vitamins and warfarin 02/10/2021 Patient remains in critical condition needing intubation and sedation with pulmonary/critical care team following him closely and help with vent management. Distal significantly tachypneic. jesus stable, WBC is normal today 9.6. Creatinine 1.1. INR was 1.6 yesterday and 1.5 today and her receiving 3 mg today. Still on steroids, vitamins, also he received 1 time dose of Lasix while his ceftriaxone and D5 half-normal saline at 75Milliliters per hour both are discontinued Objective - Vital Signs Vital signs: Vital Signs Temp 98.1 F 02/10/21 08:30 Pulse 54 L 02/10/21 11:00 Resp 30 H 02/10/21 11:00 BP 117/57 02/10/21 10:00 Pulse Ox 93 L 02/10/21 11:00 Intake & Output 02/09/21 02/10/21 02/10/21 18:59 06:59 18:59 Intake Total 0160.199 5828.261 728.383 Output Total 1246 750 705 Balance 580.502 2572.261 23.383 Weight 170.7 kg 170.7 kg Intake: IV 339 33 15 Sodium Chloride 0.9% 1, 300 000 ml @ 75 mls/hr IV . [id number] [facility] Rx#:[id number] presssure bag 39 33 15 Intake, IV Titration 4795.346 7675.261 458.383 Amount Cisatracurium 200 mg In 155.039 172.871 Sodium Chloride 0.9% 180 ml @ 1 MCG/KG/MIN 9.906 mls/hr IV .[id number] [facility] Rx #:[id number] Dextrose 5%-0.45% NaCl 1, 675 825 210 000 ml @ 20 mls/hr IV . Q24H [facility] Rx#:[id number] Norepinephrine 4 mg In 32.413 49.07 4.823 Sodium Chloride 0.9% 250 ml @ 0.05 MCG/KG/MIN 31. 453 mls/hr IV .Q8H5M [facility] Rx#:[id number] cefTRIAXone 1 gm In 50 Sodium Chloride 0.9% 50 ml @ 100 mls/hr IVPB Q24HR [facility] Rx#:[id number] fentaNYL (PF). 1,000 mcg 100 200 100 In Sodium Chloride 0.9% 80 ml @ 0.5 MCG/KG/HR 8. 255 mls/hr IV .Q12H7M [facility] Rx#:[id number] propofoL 1,000 mg In 395.02 465.32 143.56 Empty Bag 1 bag @ Titrate IV .Q0M [facility] Rx#: [id number] Tube Feeding 180 540 225 Other 90 30 Output: Urine 1246 750 705 Other: Voiding Method Indwelling Catheter Indwelling Catheter ABP, PAP, CO, CI - Last Documented Arterial Blood Pressure 119/48 - Exam -GENERAL: The patient is intubated and sedated HEENT: Pupils are round and equally reacting to light. EOMI. No scleral icterus. No conjunctival pallor. Normocephalic, atraumatic. No pharyngeal erythema. No thyromegaly. CARDIOVASCULAR: S1 and S2 present. No murmurs, rubs, or gallops. -PULMONARY: Chest is clear to auscultation, no wheezing . bilateral crepitation Abdomen: soft, nontender, nondistended, normoactive bowel sounds. No palpable organomegaly. MUSCULOSKELETAL: No joint swelling or deformity. EXTREMITIES: No cyanosis, clubbing, or pedal edema. NEUROLOGICAL: Gross neurological examination did not reveal any focal deficits. SKIN: No rashes. no petechiae. - Labs CBC & Chem 7: 02/10/21 03:10 02/10/21 03:10 Labs: Abnormal Lab Results - Last 24 Hours (Table) 02/09/21 02/09/21 02/10/21 Range/Units 17:15 23:42 03:10 RBC (4.30-5.90) m/uL MCV (80.0-100.0) fL Plt Count (150-450) k/uL Neutrophils # (Manual) (1.3-7.7) k/uL Lymphocytes # (Manual) (1.0-4.8) k/uL Metamyelocytes # (Man) (0) k/uL Myelocytes # (Manual) (0) k/uL PT 15.5 H (9.0-12.0) sec INR 1.5 H (<1.2) ABG pCO2 (35-45) mmHg ABG pO2 (83-108) mmHg ABG HCO3 (21-25) mmol/L ABG Total CO2 (19-24) mmol/L Chloride (98-107) mmol/L BUN (9-20) mg/dL Glucose (74-99) mg/dL POC Glucose (mg/dL) 192 H 201 H (75-99) mg/dL Calcium (8.4-10.2) mg/dL AST (17-59) U/L ALT (4-49) U/L Total Protein (6.3-8.2) g/dL Albumin (3.5-5.0) g/dL 02/10/21 02/10/21 02/10/21 Range/Units 03:10 03:10 05:19 RBC 4.12 L (4.30-5.90) m/uL MCV 102.8 H (80.0-100.0) fL Plt Count 94 L (150-450) k/uL Neutrophils # (Manual) 9.00 H (1.3-7.7) k/uL Lymphocytes # (Manual) 0.19 L (1.0-4.8) k/uL Metamyelocytes # (Man) 0.10 H (0) k/uL Myelocytes # (Manual) 0.10 H (0) k/uL PT (9.0-12.0) sec INR (<1.2) ABG pCO2 (35-45) mmHg ABG pO2 (83-108) mmHg ABG HCO3 (21-25) mmol/L ABG Total CO2 (19-24) mmol/L Chloride 114 H (98-107) mmol/L BUN 88 H (9-20) mg/dL Glucose 198 H (74-99) mg/dL POC Glucose (mg/dL) 185 H (75-99) mg/dL Calcium 8.0 L (8.4-10.2) mg/dL AST 100 H (17-59) U/L ALT 92 H (4-49) U/L Total Protein 5.2 L (6.3-8.2) g/dL Albumin 2.4 L (3.5-5.0) g/dL 02/10/21 Range/Units 05:54 RBC (4.30-5.90) m/uL MCV (80.0-100.0) fL Plt Count (150-450) k/uL Neutrophils # (Manual) (1.3-7.7) k/uL Lymphocytes # (Manual) (1.0-4.8) k/uL Metamyelocytes # (Man) (0) k/uL Myelocytes # (Manual) (0) k/uL PT (9.0-12.0) sec INR (<1.2) ABG pCO2 49 H (35-45) mmHg ABG pO2 73 L (83-108) mmHg ABG HCO3 27 H (21-25) mmol/L ABG Total CO2 29 H (19-24) mmol/L Chloride (98-107) mmol/L BUN (9-20) mg/dL Glucose (74-99) mg/dL POC Glucose (mg/dL) (75-99) mg/dL Calcium (8.4-10.2) mg/dL AST (17-59) U/L ALT (4-49) U/L Total Protein (6.3-8.2) g/dL Albumin (3.5-5.0) g/dL Assessment and Plan Assessment: Bilateral Covid pneumonia Acute hypoxic respiratory failure Increased inflammatory markers Chronic kidney disease, stage III Acute UTI, finished treatment history of DVT currently on anticoagulation with Coumadin. Morbid obesity with BMI 46.7 Chronic low back pain COPD/asthma Osteoarthritis Plan: This is a pleasant 60 years old male who presents with Bilateral Covid pneumonia and hypoxia Continue with vitamin C, vitamin D, and zinc. Continue with dexamethasone Pulmonary team consult Continue with mechanical ventilation for critical care team Labs and medication were reviewed.. Continue same treatment. Continue with symptomatic treatment. Resume home medication. Monitor lytes and vitals. DVT and GI prophylaxis. Further recommendations as per clinical course of the patient DVT prophylaxis: warfarin GI Prophylaxis: Ppi Prognosis is guarded
[2021-02-11] MEDS: NOREPINEPHRINE 4 MG in SODIUM CHLORIDE 0.9% 250 ML IV SCH ×4 (00:42→23:43)
[2021-02-11] MEDS: INSULIN ASPART (NovoLOG) 100 UNIT/ML VIAL SQ SCH ×5 (00:42→23:37)
[2021-02-11] MEDS: ARTIFICIAL TEARS-HYPROMELLOSE DROPS 15 ML BTL BOTH EYES SCH ×7 (00:42→23:30)
[2021-02-11] MEDS: fentaNYL (PF). 1,000 MCG in SODIUM CHLORIDE 0.9% 80 ML IV SCH ×4 (03:36→23:18)
[2021-02-11 05:16] LABS: Glucose,Whole Blood 123 mg/dL (75-99)
[2021-02-11 05:25] LABS: ABG Base Excess 2.7 mmol/L; ABG HCO3 28 mmol/L (21-25); ABG Oxygen Saturation 92.8 % (94-97); ABG PCO2 51 mmHg (35-45); ABG PH 7.35 (7.35-7.45); ABG PO2 64 mmHg (83-108); ABG TCO2 30 mmol/L (19-24)
[2021-02-11 05:33] LABS: Basophils % (A) 0 %; Eosinophils # (A) 0.3 k/uL (0-0.7); Eosinophils % (A) 2 %; HCT 43.6 % (39.0-53.0); HGB 13.9 gm/dL (13.0-17.5); Lymphocytes # (A) 0.7 k/uL (1.0-4.8); Lymphocytes % (A) 5 %; MCH 32.5 pg (25.0-35.0); MCHC 31.9 g/dL (31.0-37.0); MCV 101.8 fL (80.0-100.0); Macrocytosis Slight; Mean Platelet Volume 9.5; Monocytes # (A) 0.3 k/uL (0-1.0); Monocytes % (A) 2 %; Neutrophils # (A) 14.5 k/uL (1.3-7.7); Neutrophils % (A) 91 %; Platelet Count 109 k/uL (150-450); RBC 4.28 m/uL (4.30-5.90); RDW 14.6 % (11.5-15.5)
[2021-02-11 05:57] LABS: INR 1.4 (<1.2); Prothrombin Time 14.3 sec (9.0-12.0)
[2021-02-11 06:10] LABS: Allen Test Performed? no
[2021-02-11] MEDS: ALBUTEROL HFA INHALER INHALATION PRN ×2 (06:56→13:05)
[2021-02-11] MEDS: LISINOPRIL-HCTZ 10-12.5 MG 1 EACH TAB PO SCH (08:49)
[2021-02-11] MEDS: allopurinoL 300 MG TAB PO SCH ×2 (08:56→19:58)
[2021-02-11] MEDS: ASCORBIC ACID 500 MG TAB PO SCH (08:56)
[2021-02-11] MEDS: GABAPENTIN 400 MG CAP PO SCH ×2 (08:57→19:58)
[2021-02-11] MEDS: CHOLECALCIFEROL 25 MCG (1000 IU) TABLET PO SCH (08:57)
[2021-02-11] MEDS: ZINC SULFATE 220 MG CAP PO SCH (08:57)
[2021-02-11] MEDS: DEXAMETHASONE SOD PHOSPHATE 10 MG/ML 1 ML VIAL IVP SCH (08:58)
[2021-02-11] MEDS: CHLORHEXIDINE GLUCONATE 15 ML CUP MUCOUS MEM SCH ×2 (08:58→19:58)
[2021-02-11] MEDS: PANTOPRAZOLE 40 MG/10 ML VIAL IVP SCH (08:58)
--- NOTE | 2021-02-11 09:04 | XR ---
EXAMINATION TYPE: XR chest 1V portable DATE OF EXAM: 02/11/2021 COMPARISON: Chest x-ray 02/10/2021 HISTORY: Intubated, assess lungs, abnormal chest x-ray TECHNIQUE: Single frontal view of the chest is obtained. FINDINGS: Endotracheal tube, right jugular central venous catheter, NG tube are overlying appropriat e positions. Patient is rotated. Cardiac mediastinal silhouette is thought to be stable accounting fo r differences in technique. There is bilateral airspace disease within the lungs. No evident pneumoth orax or pleural effusion. IMPRESSION: Rotated exam, correlate for pneumonia, congestive heart failure, ARDS
--- NOTE | 2021-02-11 09:18 | P.PN ---
Subjective Progress Note Date: 02/11/21 Principal diagnosis: Coronavirus associated pneumonia. On 02/05/2021 patient seen in follow-up on selective care unit, patient is currently on BiPAP with FiO2 100%, he is very restless, he frequently removes the tubing, becomes more short of breath, he desaturates, he has required lorazepam 1 mg every 4 hours for anxiety. He is currently on Decadron 6 more gram daily, he is on empiric antibiotics in the form of ceftriaxone, he is on Coumadin, and his INR today is 4.8, the rest of his lab work is still pending for today. His urinalysis showed possibility of urinary tract infection, urine culture not show any growth. No fever or chills. His last chest x-ray was done 2 days ago showing diffuse residual coarsening and moderate patchy airspace opacities bilaterally. There is chronic elevation of the right hemidiaphragm. His last set of inflammatory markers was on 02/03/2021, but noted improvements in his inflammatory markers. Reevaluated today on 02/06/2021, patient was transferred to the ICU yesterday, mostly because his pulmonary status continued to deteriorate, patient remained hypoxic, continued to remove his BiPAP mask, transferred into the ICU, placed on Precedex initially, and kept him on BiPAP, however patient continued to saturate, and I was notified about the nurses that his clinical status is getting worse, recommended immediate intubation and mechanical ventilation. Patient is now intubated, mechanically ventilated. He is on assist control rate of 30 tidal volume 450 FiO2 60% and PEEP of 14. ABG showed a pO2 of 86 pCO2 of 52 pH of 7.36, patient remains on multiple drips including propofol at 40 mcg/kg/m, fentanyl 1 mcg/kg/h Nimbex 1.5 mcg/kg/m. Patient is also requiring norepinephrine at 0.1 mcg/kg/m. LDH today is extremely high over 3000. WBC count is elevated at 20.7 hemoglobin 15.7 his electrolytes are normal however his renal profile showed a BUN of 77 creatinine 1.47 chest x-ray showed patchy bilateral infiltrates, slight improvement compared to chest x-ray prior to intubation. His INR today is 5.8, hence I plan to reverse his INR are at least give him fresh frozen plasma and vitamin K in order to safely place a central line and arterial line in this patient. Reevaluated today on 02/07/2021, patient remains in the ICU, intubated and mechanically ventilated. He is on assist control rate of 30 tidal volume 450 Fi O2 50% and PEEP of 14. ABG showed a pO2 of 75 pCO2 48 pH of 7.40. Chest x-ray continues to show bilateral infiltrates with a right lower lobe consolidation. No changes were made in his ventilator settings today. Agent remains on multiple drips including propofol at 40 mcg/kg/m, fentanyl at 20 mcg/kg/h Nimbex at 2 mcg/minute, norepinephrine at 0.03 mcg/kg/m, IV fluid saline at 75 mL/h he is also on enteral feedings. LDH is improving down to 1966 CRP is 9 about the same. Electrolytes are about the same but BUN is 74 creatinine is 1.35. Again chest x-ray showed no major change since admission. Education list was reviewed, patient is on allopurinol, ascorbic acid, Rocephin, vitamin D, De cadron 6 mg IV push daily, Neurontin 1600 mg twice a day, lisinopril, insulin, lorazepam, patient is on Protonix 40 mg IV push daily, Coumadin 2 mg daily. And the patient is on zinc Reevaluated today on 02/08/2021, remains in the ICU, intubated and mechanically ventilated. Patient is on assist control rate of 30 tidal volume 450 FiO2 50% PEEP is 14. ABG showed a pO2 of 73 pCO2 46 pH of 7.40 hence no changes were made in his present ventilator settings. Chest x-ray continues to show not much of a significant change, bilateral infiltrates persist. Patient is on fentanyl at 1 mcg/kg/h, propofol at 40 mcg/kg/minute, Nimbex at 2 mcg/kg/m, norepinephrine at 0.02 mcg/kg/m. Patient is on vital AF rate 45 per hour. WBC count today 16.6 hemoglobin 14 INR 1.5 patient is on Coumadin for history of DVT. Sodium 145 potassium 4.4 chloride 111 bicarb 28 BUN is 74 creatinine is 1.22. Remains on vitamin C, Rocephin, vitamin D, Decadron 6 mg IV push daily, Neurontin, lisinopril, Protonix, Coumadin 2 mg daily and is also on zinc. Reevaluated today on 02/09/2021, patient remains in the ICU intubated and mechanically ventilated. He is on assist control rate of 30 tidal volume 450 FiO2 50% PEEP is 14. His ABG showed a pO2 of 96 pCO2 48 pH of 7.37, hence I recommended decreasing the PEEP down to 12. Patient is on multiple drips including fentanyl at 1 mcg/kg/h propofol at 40 mcg/kg/m Nimbex at 1.5 mcg/kg/m norepinephrine at 0.01 mcg/kg/m is also on enteral feeding in the form of vital AF 3 5 mL per hour. His labs showed relatively normal electrolytes except for slightly elevated sodium hence his IV fluid was changed to D545 at 50 mL per hour. Patient had relatively normal electrolytes otherwise except for the sodium being 146. His BUN is 76 creatinine is 1.24 slightly higher hence we'll increase his IV fluid today. Chest x-ray continues to show bilateral infiltrates, chest x-ray is not much different from his baseline. There may be a slight improvement in his right lower lobe consolidation. Endotracheal tube had to be advanced about to see and distally. Medications list was reviewed, patient is on allopurinol, albuterol, vitamin C, Rocephin, Peridex, vitamin D, Flexeril, Decadron 6 mg IV push daily, gabapentin, insulin as per scale, lisinopril with hydrochlorothiazide, Reglan when necessary, Protonix 40 mg IV push daily, and zinc. Progress note dated 02/10/2021. This is a 60-year-old male seen in the intensive care unit, room 250. He was admitted to the hospital on February 02, he moved to the intensive care unit on February 05. He was intubated on February 05, for refractory hypoxemia secondary to coronavirus associated pneumonia. He remains on the mechanical ventilator, on the volume assist control mode, rate 30, tidal volume 450, FiO2 50%, and PEEP of 12. Blood gases show pO2 72, pCO2 of 49, and a pH is 7.35. The patient remains on Nimbex at 1.5 mcg/kg/m, D5.45 at 75 mL an hour, propofol at 40 mcg/kg/m, and fentanyl 1 mcg/kg/h. The patient's also on a small dose of norepinephrine at 0.006 mcg/kg/m, and receiving vital AF 1.2 at 45 mL an hour. The patient's IV will be discontinued. We'll add some Lasix to his regimen. We will DC his ceftriaxone. White count 9.6, hemoglobin 13.3, hematocrit 42.4, and platelet count 94,000. PT 15.5 with an INR 1.5. Sodium 145, potassium 4.9, chlorides 114, CO2 25, anion gap 6, BUN 88, creatinine 1.16, with an albumin of 2.4. Chest x-ray shows diffuse bilateral infiltrates. Progress note dated 02/11/2021. 60-year-old male, seen in room 250. He was admitted to the hospital on February 02, moved to the intensive care unit on the , and intubated on February 05 for refractory hypoxemic respiratory failure, secondary to coronavirus associated pneumonia. The patient remains on the mechanical ventilator. He is on the volume assist control mode, rate 30, tidal volume 450, FiO2 50%, PEEP of 12. Blood gases show a pO2 of 64, pCO2 of 51, pH is 7.35. The patient's on dextrose and half-normal saline at 20 mL an hour, propofol at 40 mcg/kg/m, fentanyl at 1 mcg/kg/h, norepinephrine at 5 mcg/m, and vital AF, 1.2, and 36 mL an hour, which is goal. The patient's renal function has declined, and will have nephrology see the patient in consultation. Currently, white count of 16, hemoglobin 13.9, hematocrit 43.6, and platelet count 109,000. Sodium 145, potassium 5, chlorides 112, CO2 27, anion gap 6, BUN 106, creatinine 1.26. Calcium is 8.0. Chest x-ray shows diffuse bilateral infiltrates, largely unchanged, consistent with coronavirus associated pneumonia. Objective - Vital Signs Vital signs: Vital Signs Temp 99.1 F 02/11/21 08:00 Pulse 65 02/11/21 09:00 Resp 30 H 02/11/21 09:00 BP 121/48 02/11/21 08:00 Pulse Ox 89 L 02/11/21 09:00 Intake & Output 02/10/21 02/11/21 02/11/21 18:59 06:59 18:59 Intake Total 2548.485 1017.065 325.74 Output Total 1755 975 225 Balance -19.963 425.065 100.74 Weight 170.7 kg 158 kg Intake: IV 39 253 69 Dextrose 5%-0.45% NaCl 1, 220 60 000 ml @ 20 mls/hr IV . Q24H [facility] Rx#:[id number] presssure bag 39 33 9 Intake, IV Titration 1041.037 582.065 91.74 Amount Dextrose 5%-0.45% NaCl 1, 370 000 ml @ 20 mls/hr IV . Q24H [facility] Rx#:[id number] Norepinephrine 4 mg In 46.317 87.025 Sodium Chloride 0.9% 250 ml @ 0.05 MCG/KG/MIN 31. 453 mls/hr IV .Q8H5M [facility] Rx#:[id number] fentaNYL (PF). 1,000 mcg 200 100 In Sodium Chloride 0.9% 80 ml @ 0.5 MCG/KG/HR 8. 255 mls/hr IV .Q12H7M [facility] Rx#:[id number] propofoL 1,000 mg In 424.72 395.04 91.74 Empty Bag 1 bag @ Titrate IV .Q0M [facility] Rx#: [id number] Tube Feeding 505 385 105 Other 150 180 60 Output: Urine 1755 975 225 Other: Voiding Method Indwelling Catheter Indwelling Catheter ABP, PAP, CO, CI - Last Documented Arterial Blood Pressure 97/42 - Exam No acute distress, sedated, with an orally placed endotracheal tube and NG tube.. HEENT examination is grossly unremarkable. Neck supple. Full range of motion. No adenopathy thyromegaly or neck vein distention. Cardiovascular examination reveals regular rhythm rate. S1-S2 normal. No S3 or S4. No discernible murmur noted. Heart rate is 65 bpm. Heart sounds are diminished. Lungs reveal coarse bilateral rhonchi. No wheezes or crackles. Breath sounds are equal bilaterally. Saturations are 90%. Abdomen soft bowel sounds are heard. No masses or tenderness. Extremities reveal chronic venous stasis changes, and bilateral lateral lower extremity edema. No cyanosis or clubbing. Skin is without rash or lesion. Neurologic examination cannot be adequately assessed as the patient's currently sedated. - Labs CBC & Chem 7: 02/11/21 05:15 02/11/21 05:15 Labs: Abnormal Lab Results - Last 24 Hours (Table) 02/10/21 02/10/21 02/10/21 Range/Units 12:33 18:03 22:54 WBC (3.8-10.6) k/uL RBC (4.30-5.90) m/uL MCV (80.0-100.0) fL Plt Count (150-450) k/uL Neutrophils # (1.3-7.7) k/uL Lymphocytes # (1.0-4.8) k/uL PT (9.0-12.0) sec INR (<1.2) ABG pCO2 (35-45) mmHg ABG pO2 (83-108) mmHg ABG HCO3 (21-25) mmol/L ABG Total CO2 (19-24) mmol/L ABG O2 Saturation (94-97) % Chloride (98-107) mmol/L BUN (9-20) mg/dL Creatinine (0.66-1.25) mg/dL Glucose (74-99) mg/dL POC Glucose (mg/dL) 152 H 123 H 120 H (75-99) mg/dL Calcium (8.4-10.2) mg/dL 02/11/21 02/11/21 02/11/21 Range/Units 05:15 05:15 05:15 WBC 16.0 H (3.8-10.6) k/uL RBC 4.28 L (4.30-5.90) m/uL MCV 101.8 H (80.0-100.0) fL Plt Count 109 L (150-450) k/uL Neutrophils # 14.5 H (1.3-7.7) k/uL Lymphocytes # 0.7 L (1.0-4.8) k/uL PT 14.3 H (9.0-12.0) sec INR 1.4 H (<1.2) ABG pCO2 (35-45) mmHg ABG pO2 (83-108) mmHg ABG HCO3 (21-25) mmol/L ABG Total CO2 (19-24) mmol/L ABG O2 Saturation (94-97) % Chloride (98-107) mmol/L BUN (9-20) mg/dL Creatinine (0.66-1.25) mg/dL Glucose (74-99) mg/dL POC Glucose (mg/dL) 123 H (75-99) mg/dL Calcium (8.4-10.2) mg/dL 02/11/21 02/11/21 Range/Units 05:15 05:24 WBC (3.8-10.6) k/uL RBC (4.30-5.90) m/uL MCV (80.0-100.0) fL Plt Count (150-450) k/uL Neutrophils # (1.3-7.7) k/uL Lymphocytes # (1.0-4.8) k/uL PT (9.0-12.0) sec INR (<1.2) ABG pCO2 51 H (35-45) mmHg ABG pO2 64 L (83-108) mmHg ABG HCO3 28 H (21-25) mmol/L ABG Total CO2 30 H (19-24) mmol/L ABG O2 Saturation 92.8 L (94-97) % Chloride 112 H (98-107) mmol/L BUN 106 H* (9-20) mg/dL Creatinine 1.26 H (0.66-1.25) mg/dL Glucose 135 H (74-99) mg/dL POC Glucose (mg/dL) (75-99) mg/dL Calcium 8.0 L (8.4-10.2) mg/dL Assessment and Plan Assessment: Acute hypoxemic respiratory failure secondary to coronavirus associated pneumonia, status post intubation and mechanical ventilation on 02/05/2021. Acute kidney injury. Previous history of DVT. Obesity. Chronic back pain. History of COPD/asthma. Prior history of pancreatitis. History of essential hypertension. Acute urinary tract infection. Plan: Plan dated 02/10/2021. The patient is way ahead on fluids, hence, his fluids to be cut back. We will make them KVO. The patient will be given a dose of IV Lasix. We'll DC the ceftriaxone at this time. We continue with enteral feedings and nutritional support, and vitamin cocktail, as well as Decadron, and blood thinner. Additional recommendations and suggestions are forthcoming. Prognosis is guarded. The patient is still on 50% PEEP of 12. He's been intubated since the eighth. He may require tracheostomy and PEG tube placement should he not show improvement. Plan dated 02/11/2021. Will have nephrology see the patient. The patient was weaned off the Nimbex. He remains on fentanyl, fall, and norepinephrine. The patient is receiving nutrition at goal. Blood gases are reasonable. He is on 50% PEEP of 12. We will continue to follow make recommendations where appropriate. The patient continues on Decadron and blood thinner. Additional recommendations and suggestions are forthcoming. Prognosis is guarded. Time with Patient: Greater than 30
[2021-02-11] MEDS: MIDODRINE 5 MG TAB PO SCH ×2 (12:02→18:02)
[2021-02-11 12:51] LABS: Glucose,Whole Blood 174 mg/dL (75-99)
[2021-02-11 17:34] LABS: Glucose,Whole Blood 156 mg/dL (75-99)
[2021-02-11] MEDS ORDERED: WARFARIN 3 MG TAB PO ONE (18:00)
[2021-02-11] MEDS: DEXTROSE 5%-0.45% NACL 1,000 ML IV SCH (18:14)
--- NOTE | 2021-02-11 18:49 | CONS ---
CONSULTATION REASON FOR CONSULT: Renal failure. HISTORY OF PRESENT ILLNESS: The patient is a 60-year-old male who was admitted to the hospital initially on 02/02/2021 with shortness of breath. The patient has underlying COVID pneumonia. He was intubated on 02/05/2021. Patient's serum creatinine was 1.85 on initial admission. It did go down to about 1.2- 1.1 mg/dL yesterday. The patient received IV Lasix yesterday and this morning his creatinine was 1.26. Urine output currently at about 75 mL an hours. The patient received Lasix since he has been in significant positive fluid balance since admission. He is currently maintained on FiO2 at 70%. Earlier this morning it was at about 50%. He is maintained on a small dose of Levophed at about 0.03 mcg/kg per minute. No IV fluids on board. Patient remains on Decadron. BUN was 106 today. No obvious GI bleed noted. PAST MEDICAL HISTORY: Significant for hypertension, asthma, COPD, history of DVT, osteoarthritis, chronic low back pain, history of pancreatitis. PAST SURGICAL HISTORY: Appendectomy, meniscus repair right knee, left wrist surgery. SOCIAL HISTORY: Negative for smoking, drug abuse or alcohol abuse. MEDICATIONS: Medications prior to admission included Mobic, Zyloprim, Keflex, Flexeril, Pepcid, Voltaren, gabapentin, lisinopril, Zestoretic, Coumadin, prednisone. ALLERGIES: Include DOXYCYCLINE. EXAMINATION: Currently patient is sedated. Patient is seen from the door. Case is discussed with nursing staff. He is on the vent. FiO2 this morning was at 50%, currently at 70%. He is maintained on sedation, Levophed and IV antibiotics. He is also on Nimbex and fentanyl. Chronic edema noted bilateral lower extremities with chronic skin changes. The patient is tolerating tube feeds. Lungs and heart are not examined. [employer] exam cannot be assessed as patient is sedated and paralyzed. LABS: Reviewed. This morning sodium was 145, potassium 5.0, chloride 112, BUN 106, serum creatinine 1.26, calcium 8.0, hemoglobin of 13.9. ASSESSMENT: 1. Acute kidney injury on initial admission associated with use of NSAIDs and possibly prerenal as well. Serum creatinine improved from 1.8 on admission to about 1.1-1.2 mg/dL. Currently patient is volume overloaded. His urine output is maintained at about 75 mL an hour. He received IV Lasix yesterday. We will monitor for today and add IV Lasix again tomorrow. The patient is also hypotensive. This may have contributed to his recent increase in his creatinine. DC the lisinopril hydrochlorothiazide and add mid midodrine and hopefully we can wean down the Levophed. There are no nephrotoxic agents on board currently. 2. Acute hypoxic respiratory failure secondary to COVID pneumonia. 3. Volume overload. 4. History of pancreatitis. PLAN: Continue off IV fluids. Add midodrine. Can add IV Lasix again tomorrow. Avoid any other nephrotoxic agents. Thank you for this consultation. Will continue to follow the patient with you during his hospitalization. MMODL / IJN: [id number] /
--- NOTE | 2021-02-11 21:30 | P.PN ---
Subjective Patient is 60-year-old male with a known history of asthma/COPD, history of DVT, chronic low back pain, osteoarthritis and morbid obesity with BMI 46.7 presents to ER with complaints of generalized weakness and fatigue and worsening shortness of breath and exertional dyspnea. Patient states that he has been having symptoms for the past 5-6 days and his and other family members were also tested positive for covid 19 infection. Patient has been having generalized weakness and fatigue. No complaints of chest pain. Does have cough without any sputum production. No nausea vomiting or abdominal pain or diarrhea. Chest x-ray showed diffuse residual coarsening and moderate patchy airspace opacities bilaterally. Findings may represent Covid 19 pneumonia. EKG showed normal sinus rhythm Laboratory data showed WBC 7.6 hemoglobin 10.9 and platelets 167 lymphocytes 0.4 INR 1.9 and d-dimer is 1.16 Sodium 126 potassium 4.8 chloride 89 BUN 6 T5 and creatinine 1.85 calcium 7.9 AST 219 ALT 55 alk phos 63 ALT is 2347 and CRP 24.0 Procalcitonin 0.69, Covid 19 PCR detected. Patient is not vaccinated. 02/03/2021 Patient is currently in the emergency room awaiting for self care unit transfer. Patient is currently on BiPAP 16 x 6 with 100% FiO2. Patient is still having shortness of breath and he appears to be in mild distress and unable to tolerate BiPAP. Otherwise patient has been afebrile. Currently being continued on dexamethasone, warfarin dosing and multivitamins. Patient was started on ceftriaxone for possible urinary tract infection. Laboratory data showed sodium 128 potassium 4.3 chloride 91 BUN 60 and creatinine 1.8 LDH 893 and CRP 21.9 No complaints of chest pain. Patient is awake alert and oriented 3. Pulmonary is on board. 02/04/2021 Patient remains in the emergency department. Currently on BiPAP with 100% FiO2. Patient is saturating mid 80s. Sitting up in the bed. Still tachypneic and anxious. Awake alert and oriented. Laboratory showed WBC 11.2 hemoglobin 15.7 and platelets 202 lymphocytes 0.4 Sodium 131 potassium 4.3 chloride 94 bicarb is 28 BUN 75 creatinine 1.42. Urine culture is pending. Patient is being current on ceftriaxone. Patient is being continued on dexamethasone, Coumadin and multivitamins. Pulmonary is following. 02/05/2021 Patient is on BiPAP with FiO2 100%. Patient is restless and tachypneic. Pulling out tubes. Oxygen saturations around 82% to 90% while on BiPAP. Patient has been afebrile. Currently being continued on dexamethasone and Coumadin dosing. INR is 4.8 toda y. Laboratory data showed WBC 16.1 hemoglobin 16.1 platelets 170 BUN 77 creatinine 1.16 and troponin 0 0.042. Patient is also being current ceftriaxone for acute urinary tract infection. Urine culture showed no growth. Pulmonary is following. Patient does not want to get intubated. 02/06/2021 Patient was transferred to MICU. Intubated and on mechanical ventilator. Patient is sedated and multiple drips including propofol, fentanyl and Nimbex. Patient is also requiring norepinephrine. Laboratory showed WBC 20.7 hemoglobin 15.7 platelets 173 INR 5.8 Sodium 138 potassium 4.6 BUN 77 creatinine 1.43 LDH 3075 and CRP 15.1 AST 262 ALT 93 alk phos 94 and blood sugar is 188. Patient is being continued ceftriaxone, dexamethasone IV and Coumadin on hold. Patient is also on IV hydration with normal saline at 75 cc/h. Chest x-ray showed patchy infiltrates throughout both lung griffiths no change. Correlate clinically and follow-up and resolution is recommended. 02/07/2021 Patient is seen and evaluated and follow-up continues to be closely monitored in the ICU with pulmonary dexigraph operator following closely. Patient remains on sedation with propofol and fentanyl and is also continued on Nimbex and currently attempting to wean norepinephrine. Patient also continues on IV ceftriaxone for the possibility of a UTI although urine culture show no growth for 18 hours and will repeat pro calcitonin and consider discontinuing IV antibiotics. Patient also continues on vitamin and zinc along with Lovenox and IV dexamethasone and will continue. Pulmonary dexigraph operator following and patient continues to be on mechanical vent and FiO2 is at 50% with a PEEP of 14 and per nursing staff no attempts at weaning today. Chest x-ray was done and pending. Inflammatory markers continue to be elevated although trending down. 02/08/2021 This is a pleasant 60 years old male with multiple medical problems was admitted for respiratory distress secondary to bilateral Covid pneumonia and acute hypoxic respiratory failure and on the top of that bacterial superinfection is suspected with his procalcitonin elevated at 0.6 and 0.43 and patient was placed on ceftriaxone currently. Cystoscopy the ICU monitor closely and followed by pulmonary/critical care team. Labs showing leukocytosis of 16.6 while his steroids. D-dimer 1.5, LDH elevated 1966, CRP 9.0. Mildly elevated liver enzymes. He is also on warfarin with INR is subtherapeutic at 1.5. Creatinine is trending down to 1.4 down to 1.2 however patient looks like he has chronic kidney disease stage III. Currently covered with vitamin C, vitamin D, zinc, dexamethasone, ceftriaxone, normal saline 75 mL/h, warfarin and Protonix 02/09/2021 The patient remains in the ICU sedated and intubated on mechanical ventilation with pulmonary/critical care team following him closely. Patient remains clinically the same is still tachypneic he still on critical condition. WBC slightly better 13.6, liver enzymes mildly elevated, INR is 1.6 and today he will receive 3 mg of iodine. Sodium slightly elevated 146 and his IV fluid was changed to D5 half-normal saline. He remains on ceftriaxone, dexamethasone, multiple vitamins and warfarin 02/10/2021 Patient remains in critical condition needing intubation and sedation with pulmonary/critical care team following him closely and help with vent management. Distal significantly tachypneic. jesus stable, WBC is normal today 9.6. Creatinine 1.1. INR was 1.6 yesterday and 1.5 today and her receiving 3 mg today. Still on steroids, vitamins, also he received 1 time dose of Lasix while his ceftriaxone and D5 half-normal saline at 75Milliliters per hour both are discontinued 02/11/2021 Patient is in the ICU status post intubation. He is on mechanical ventilation with pulmonary/critical care team on the case. He still tachypneic with FiO2 of 70%. Labs showing leukocytosis 16 K, INR actually is trending down 1.4 and received 6 mg of warfarin today. Creatinine within baseline of 1.26. Sodium is stable at 145. His hydrochlorothiazide/lisinopril was discontinued for borderline blood pres sure on midodrine started. Remains on dexamethasone, vitamin C, D and zinc. Objective - Vital Signs Vital signs: Vital Signs Temp 99.1 F 02/11/21 08:00 Pulse 65 02/11/21 09:00 Resp 30 H 02/11/21 09:00 BP 121/48 02/11/21 08:00 Pulse Ox 89 L 02/11/21 09:00 Intake & Output 02/10/21 02/11/21 02/11/21 18:59 06:59 18:59 Intake Total 1197.258 4589.065 420.403 Output Total 1755 975 225 Balance -19.963 425.065 195.403 Weight 170.7 kg 158 kg Intake: IV 39 253 69 Dextrose 5%-0.45% NaCl 1, 220 60 000 ml @ 20 mls/hr IV . Q24H [facility] Rx#:[id number] presssure bag 39 33 9 Intake, IV Titration 1041.037 582.065 186.403 Amount Dextrose 5%-0.45% NaCl 1, 370 000 ml @ 20 mls/hr IV . Q24H [facility] Rx#:[id number] Norepinephrine 4 mg In 46.317 87.025 Sodium Chloride 0.9% 250 ml @ 0.05 MCG/KG/MIN 31. 453 mls/hr IV .Q8H5M [facility] Rx#:[id number] fentaNYL (PF). 1,000 mcg 200 100 94.663 In Sodium Chloride 0.9% 80 ml @ 0.5 MCG/KG/HR 8. 255 mls/hr IV .Q12H7M [facility] Rx#:[id number] propofoL 1,000 mg In 424.72 395.04 91.74 Empty Bag 1 bag @ Titrate IV .Q0M [facility] Rx#: [id number] Tube Feeding 505 385 105 Other 150 180 60 Output: Urine 1755 975 225 Other: Voiding Method Indwelling Catheter Indwelling Catheter ABP, PAP, CO, CI - Last Documented Arterial Blood Pressure 97/42 - Exam -GENERAL: The patient is intubated and sedated HEENT: Pupils are round and equally reacting to light. EOMI. No scleral icterus. No conjunctival pallor. Normocephalic, atraumatic. No pharyngeal erythema. No thyromegaly. CARDIOVASCULAR: S1 and S2 present. No murmurs, rubs, or gallops. -PULMONARY: Chest is clear to auscultation, no wheezing . bilateral crepitation Abdomen: soft, nontender, nondistended, normoactive bowel sounds. No palpable organomegaly. MUSCULOSKELETAL: No joint swelling or deformity. EXTREMITIES: No cyanosis, clubbing, or pedal edema. NEUROLOGICAL: Gross neurological examination did not reveal any focal deficits. SKIN: No rashes. no petechiae. - Labs CBC & Chem 7: 02/11/21 05:15 02/11/21 05:15 Labs: Abnormal Lab Results - Last 24 Hours (Table) 02/10/21 02/10/21 02/10/21 Range/Units 12:33 18:03 22:54 WBC (3.8-10.6) k/uL RBC (4.30-5.90) m/uL MCV (80.0-100.0) fL Plt Count (150-450) k/uL Neutrophils # (1.3-7.7) k/uL Lymphocytes # (1.0-4.8) k/uL PT (9.0-12.0) sec INR (<1.2) ABG pCO2 (35-45) mmHg ABG pO2 (83-108) mmHg ABG HCO3 (21-25) mmol/L ABG Total CO2 (19-24) mmol/L ABG O2 Saturation (94-97) % Chloride (98-107) mmol/L BUN (9-20) mg/dL Creatinine (0.66-1.25) mg/dL Glucose (74-99) mg/dL POC Glucose (mg/dL) 152 H 123 H 120 H (75-99) mg/dL Calcium (8.4-10.2) mg/dL 02/11/21 02/11/21 02/11/21 Range/Units 05:15 05:15 05:15 WBC 16.0 H (3.8-10.6) k/uL RBC 4.28 L (4.30-5.90) m/uL MCV 101.8 H (80.0-100.0) fL Plt Count 109 L (150-450) k/uL Neutrophils # 14.5 H (1.3-7.7) k/uL Lymphocytes # 0.7 L (1.0-4.8) k/uL PT 14.3 H (9.0-12.0) sec INR 1.4 H (<1.2) ABG pCO2 (35-45) mmHg ABG pO2 (83-108) mmHg ABG HCO3 (21-25) mmol/L ABG Total CO2 (19-24) mmol/L ABG O2 Saturation (94-97) % Chloride (98-107) mmol/L BUN (9-20) mg/dL Creatinine (0.66-1.25) mg/dL Glucose (74-99) mg/dL POC Glucose (mg/dL) 123 H (75-99) mg/dL Calcium (8.4-10.2) mg/dL 02/11/21 02/11/21 Range/Units 05:15 05:24 WBC (3.8-10.6) k/uL RBC (4.30-5.90) m/uL MCV (80.0-100.0) fL Plt Count (150-450) k/uL Neutrophils # (1.3-7.7) k/uL Lymphocytes # (1.0-4.8) k/uL PT (9.0-12.0) sec INR (<1.2) ABG pCO2 51 H (35-45) mmHg ABG pO2 64 L (83-108) mmHg ABG HCO3 28 H (21-25) mmol/L ABG Total CO2 30 H (19-24) mmol/L ABG O2 Saturation 92.8 L (94-97) % Chloride 112 H (98-107) mmol/L BUN 106 H* (9-20) mg/dL Creatinine 1.26 H (0.66-1.25) mg/dL Glucose 135 H (74-99) mg/dL POC Glucose (mg/dL) (75-99) mg/dL Calcium 8.0 L (8.4-10.2) mg/dL Assessment and Plan Assessment: Bilateral Covid pneumonia Acute hypoxic respiratory failure Increased inflammatory markers Chronic kidney disease, stage III Acute UTI, finished treatment history of DVT currently on anticoagulation with Coumadin. Morbid obesity with BMI 46.7 Chronic low back pain COPD/asthma Osteoarthritis Plan: This is a pleasant 60 years old male who presents with Bilateral Covid pneumonia and hypoxia Continue with vitamin C, vitamin D, and zinc. Continue with dexamethasone Pulmonary team consult Continue with mechanical ventilation for critical care team Labs and medication were reviewed.. Continue same treatment. Continue with symptomatic treatment. Resume home medication. Monitor lytes and vitals. DVT and GI prophylaxis. Further recommendations as per clinical course of the patient DVT prophylaxis: warfarin GI Prophylaxis: Ppi Prognosis is guarded
[2021-02-11 23:35] LABS: Glucose,Whole Blood 200 mg/dL (75-99)
[2021-02-11] MEDS: ACETAMINOPHEN TAB 325 MG TAB PO PRN (23:37)
[2021-02-12] MEDS: ARTIFICIAL TEARS-HYPROMELLOSE DROPS 15 ML BTL BOTH EYES SCH ×6 (03:50→23:23)
[2021-02-12 04:50] LABS: Basophils % (A) 0 %; Eosinophils % (A) 0 %; HCT 43.6 % (39.0-53.0); HGB 13.8 gm/dL (13.0-17.5); Hypochromasia Slight; Lymphocytes # (A) 0.4 k/uL (1.0-4.8); Lymphocytes % (A) 2 %; MCH 32.3 pg (25.0-35.0); MCHC 31.6 g/dL (31.0-37.0); MCV 101.9 fL (80.0-100.0); Macrocytosis Slight; Mean Platelet Volume 9.5; Monocytes # (A) 0.5 k/uL (0-1.0); Monocytes % (A) 3 %; Neutrophils # (A) 18.5 k/uL (1.3-7.7); Neutrophils % (A) 95 %; RBC 4.28 m/uL (4.30-5.90); RDW 13.7 % (11.5-15.5); WBC 19.6 k/uL (3.8-10.6)
[2021-02-12 05:01] LABS: Platelet Count 92 k/uL (150-450)
[2021-02-12 05:19] LABS: Calcium 8.3 mg/dL (8.4-10.2); Potassium 5.4 mmol/L (3.5-5.1)
[2021-02-12 05:24] LABS: INR 1.3 (<1.2); Prothrombin Time 13.4 sec (9.0-12.0)
[2021-02-12 05:35] LABS: ABG Base Excess 2.7 mmol/L; ABG HCO3 29 mmol/L (21-25); ABG Oxygen Saturation 93.9 % (94-97); ABG PCO2 56 mmHg (35-45); ABG PH 7.32 (7.35-7.45); ABG PO2 69 mmHg (83-108); ABG TCO2 31 mmol/L (19-24); Allen Test Performed? Yes
[2021-02-12 05:39] LABS: Glucose,Whole Blood 140 mg/dL (75-99)
[2021-02-12] MEDS: INSULIN ASPART (NovoLOG) 100 UNIT/ML VIAL SQ SCH ×4 (05:49→23:22)
[2021-02-12] MEDS: fentaNYL (PF). 1,000 MCG in SODIUM CHLORIDE 0.9% 80 ML IV SCH ×3 (05:58→20:33)
[2021-02-12] MEDS: MIDODRINE 5 MG TAB PO SCH ×3 (06:24→18:14)
--- NOTE | 2021-02-12 07:31 | XR ---
EXAMINATION TYPE: XR chest 1V portable DATE OF EXAM: 02/12/2021 COMPARISON: Chest x-ray 02/11/2021 HISTORY: Intubated, abnormal chest x-ray, assess lungs TECHNIQUE: Single frontal view of the chest is obtained. FINDINGS: Endotracheal tube and NG tube, right jugular central venous catheter are overlying appropr iate positions. No evident pneumothorax. There is an interval obscured appearance of the left hemidia phragm. Bilateral airspace disease persists. Cardiac mediastinal silhouette is unchanged. IMPRESSION: Correlate for pneumonia, ARDS
[2021-02-12] MEDS: ALBUTEROL HFA INHALER INHALATION PRN ×3 (07:56→19:37)
[2021-02-12] MEDS: CHLORHEXIDINE GLUCONATE 15 ML CUP MUCOUS MEM SCH ×2 (08:15→20:31)
[2021-02-12] MEDS ORDERED: HEPARIN SODIUM 1,000 UN/ML (10ML VL) IV PRN (08:39)
[2021-02-12] MEDS: NOREPINEPHRINE 4 MG in SODIUM CHLORIDE 0.9% 250 ML IV SCH ×3 (09:06→23:18)
[2021-02-12] MEDS: allopurinoL 300 MG TAB PO SCH ×2 (09:08→20:55)
[2021-02-12] MEDS: ZINC SULFATE 220 MG CAP PO SCH (09:09)
[2021-02-12] MEDS: PANTOPRAZOLE 40 MG/10 ML VIAL IVP SCH (09:09)
[2021-02-12] MEDS: ASCORBIC ACID 500 MG TAB PO SCH (09:09)
[2021-02-12] MEDS: CHOLECALCIFEROL 25 MCG (1000 IU) TABLET PO SCH (09:09)
[2021-02-12] MEDS: GABAPENTIN 400 MG CAP PO SCH ×2 (09:09→20:32)
[2021-02-12] MEDS: DEXAMETHASONE SOD PHOSPHATE 10 MG/ML 1 ML VIAL IVP SCH (09:10)
--- NOTE | 2021-02-12 09:32 | US ---
EXAMINATION TYPE: US venous doppler duplex LE BI DATE OF EXAM: 02/12/2021 9:14 AM COMPARISON: NONE CLINICAL HISTORY: swelling. Covid, ICU SIDE PERFORMED: Bilateral TECHNIQUE: The lower extremity deep venous system is examined utilizing real time linear array sonog tonia with graded compression, doppler sonography and color-flow sonography. VESSELS IMAGED: Common Femoral Vein Deep Femoral Vein Greater Saphenous Vein * Femoral Vein Popliteal Vein Small Saphenous Vein * Proximal Calf Veins (* superficial vessels) Very limited due to body habitus. Left Distal FV not visualized Right Leg: Positive for DVT Left Leg: Positive for DVT Bilateral thrombus seen from GSV, FV PROX - POP V IMPRESSION: Bilateral deep venous thrombosis within the femoral veins extending peripherally into the popliteal veins better seen on the right than on the left, there are limited findings. Report relaye d to Dr. Huffman via perfect serve at the time of interpretation.
[2021-02-12] MEDS: HEPARIN SOD,PORK IN 0.45% NACL 25,000 UNIT in 0.45% NACL 1 250ML.BAG IV SCH ×2 (10:24→20:31)
--- NOTE | 2021-02-12 11:14 | P.PN ---
Subjective Progress Note Date: 02/12/21 Principal diagnosis: Coronavirus associated pneumonia. On 02/05/2021 patient seen in follow-up on selective care unit, patient is currently on BiPAP with FiO2 100%, he is very restless, he frequently removes the tubing, becomes more short of breath, he desaturates, he has required lorazepam 1 mg every 4 hours for anxiety. He is currently on Decadron 6 more gram daily, he is on empiric antibiotics in the form of ceftriaxone, he is on Coumadin, and his INR today is 4.8, the rest of his lab work is still pending for today. His urinalysis showed possibility of urinary tract infection, urine culture not show any growth. No fever or chills. His last chest x-ray was done 2 days ago showing diffuse residual coarsening and moderate patchy airspace opacities bilaterally. There is chronic elevation of the right hemidiaphragm. His last set of inflammatory markers was on 02/03/2021, but noted improvements in his inflammatory markers. Reevaluated today on 02/06/2021, patient was transferred to the ICU yesterday, mostly because his pulmonary status continued to deteriorate, patient remained hypoxic, continued to remove his BiPAP mask, transferred into the ICU, placed on Precedex initially, and kept him on BiPAP, however patient continued to saturate, and I was notified about the nurses that his clinical status is getting worse, recommended immediate intubation and mechanical ventilation. Patient is now intubated, mechanically ventilated. He is on assist control rate of 30 tidal volume 450 FiO2 60% and PEEP of 14. ABG showed a pO2 of 86 pCO2 of 52 pH of 7.36, patient remains on multiple drips including propofol at 40 mcg/kg/m, fentanyl 1 mcg/kg/h Nimbex 1.5 mcg/kg/m. Patient is also requiring norepinephrine at 0.1 mcg/kg/m. LDH today is extremely high over 3000. WBC count is elevated at 20.7 hemoglobin 15.7 his electrolytes are normal however his renal profile showed a BUN of 77 creatinine 1.47 chest x-ray showed patchy bilateral infiltrates, slight improvement compared to chest x-ray prior to intubation. His INR today is 5.8, hence I plan to reverse his INR are at least give him fresh frozen plasma and vitamin K in order to safely place a central line and arterial line in this patient. Reevaluated today on 02/07/2021, patient remains in the ICU, intubated and mechanically ventilated. He is on assist control rate of 30 tidal volume 450 Fi O2 50% and PEEP of 14. ABG showed a pO2 of 75 pCO2 48 pH of 7.40. Chest x-ray continues to show bilateral infiltrates with a right lower lobe consolidation. No changes were made in his ventilator settings today. Agent remains on multiple drips including propofol at 40 mcg/kg/m, fentanyl at 20 mcg/kg/h Nimbex at 2 mcg/minute, norepinephrine at 0.03 mcg/kg/m, IV fluid saline at 75 mL/h he is also on enteral feedings. LDH is improving down to 1966 CRP is 9 about the same. Electrolytes are about the same but BUN is 74 creatinine is 1.35. Again chest x-ray showed no major change since admission. Education list was reviewed, patient is on allopurinol, ascorbic acid, Rocephin, vitamin D, De cadron 6 mg IV push daily, Neurontin 1600 mg twice a day, lisinopril, insulin, lorazepam, patient is on Protonix 40 mg IV push daily, Coumadin 2 mg daily. And the patient is on zinc Reevaluated today on 02/08/2021, remains in the ICU, intubated and mechanically ventilated. Patient is on assist control rate of 30 tidal volume 450 FiO2 50% PEEP is 14. ABG showed a pO2 of 73 pCO2 46 pH of 7.40 hence no changes were made in his present ventilator settings. Chest x-ray continues to show not much of a significant change, bilateral infiltrates persist. Patient is on fentanyl at 1 mcg/kg/h, propofol at 40 mcg/kg/minute, Nimbex at 2 mcg/kg/m, norepinephrine at 0.02 mcg/kg/m. Patient is on vital AF rate 45 per hour. WBC count today 16.6 hemoglobin 14 INR 1.5 patient is on Coumadin for history of DVT. Sodium 145 potassium 4.4 chloride 111 bicarb 28 BUN is 74 creatinine is 1.22. Remains on vitamin C, Rocephin, vitamin D, Decadron 6 mg IV push daily, Neurontin, lisinopril, Protonix, Coumadin 2 mg daily and is also on zinc. Reevaluated today on 02/09/2021, patient remains in the ICU intubated and mechanically ventilated. He is on assist control rate of 30 tidal volume 450 FiO2 50% PEEP is 14. His ABG showed a pO2 of 96 pCO2 48 pH of 7.37, hence I recommended decreasing the PEEP down to 12. Patient is on multiple drips including fentanyl at 1 mcg/kg/h propofol at 40 mcg/kg/m Nimbex at 1.5 mcg/kg/m norepinephrine at 0.01 mcg/kg/m is also on enteral feeding in the form of vital AF 3 5 mL per hour. His labs showed relatively normal electrolytes except for slightly elevated sodium hence his IV fluid was changed to D545 at 50 mL per hour. Patient had relatively normal electrolytes otherwise except for the sodium being 146. His BUN is 76 creatinine is 1.24 slightly higher hence we'll increase his IV fluid today. Chest x-ray continues to show bilateral infiltrates, chest x-ray is not much different from his baseline. There may be a slight improvement in his right lower lobe consolidation. Endotracheal tube had to be advanced about to see and distally. Medications list was reviewed, patient is on allopurinol, albuterol, vitamin C, Rocephin, Peridex, vitamin D, Flexeril, Decadron 6 mg IV push daily, gabapentin, insulin as per scale, lisinopril with hydrochlorothiazide, Reglan when necessary, Protonix 40 mg IV push daily, and zinc. Progress note dated 02/10/2021. This is a 60-year-old male seen in the intensive care unit, room 250. He was admitted to the hospital on February 02, he moved to the intensive care unit on February 05. He was intubated on February 05, for refractory hypoxemia secondary to coronavirus associated pneumonia. He remains on the mechanical ventilator, on the volume assist control mode, rate 30, tidal volume 450, FiO2 50%, and PEEP of 12. Blood gases show pO2 72, pCO2 of 49, and a pH is 7.35. The patient remains on Nimbex at 1.5 mcg/kg/m, D5.45 at 75 mL an hour, propofol at 40 mcg/kg/m, and fentanyl 1 mcg/kg/h. The patient's also on a small dose of norepinephrine at 0.006 mcg/kg/m, and receiving vital AF 1.2 at 45 mL an hour. The patient's IV will be discontinued. We'll add some Lasix to his regimen. We will DC his ceftriaxone. White count 9.6, hemoglobin 13.3, hematocrit 42.4, and platelet count 94,000. PT 15.5 with an INR 1.5. Sodium 145, potassium 4.9, chlorides 114, CO2 25, anion gap 6, BUN 88, creatinine 1.16, with an albumin of 2.4. Chest x-ray shows diffuse bilateral infiltrates. Progress note dated 02/11/2021. 60-year-old male, seen in room 250. He was admitted to the hospital on February 02, moved to the intensive care unit on the , and intubated on February 05 for refractory hypoxemic respiratory failure, secondary to coronavirus associated pneumonia. The patient remains on the mechanical ventilator. He is on the volume assist control mode, rate 30, tidal volume 450, FiO2 50%, PEEP of 12. Blood gases show a pO2 of 64, pCO2 of 51, pH is 7.35. The patient's on dextrose and half-normal saline at 20 mL an hour, propofol at 40 mcg/kg/m, fentanyl at 1 mcg/kg/h, norepinephrine at 5 mcg/m, and vital AF, 1.2, and 36 mL an hour, which is goal. The patient's renal function has declined, and will have nephrology see the patient in consultation. Currently, white count of 16, hemoglobin 13.9, hematocrit 43.6, and platelet count 109,000. Sodium 145, potassium 5, chlorides 112, CO2 27, anion gap 6, BUN 106, creatinine 1.26. Calcium is 8.0. Chest x-ray shows diffuse bilateral infiltrates, largely unchanged, consistent with coronavirus associated pneumonia. Progress note dated 02/12/2021. 60-year-old male, again seen in room 250. The patient was admitted to the hospital on February 02, and moved to the intensive care unit on February 05. The patient was intubated on February 05 for refractory hypoxemic respiratory failure, secondary to coronavirus associated pneumonia. The patient remains ventilated. He is on the volume assist control mode, rate 30, tidal volume 450, FiO2 70%, and PEEP of 12. Blood gases show pO2 of 69, pCO2 56, and a pH is 7.32. The patient is on propofol for at 40 mcg/kg/m, fentanyl at 1 mcg/kg/h, norepinephrine at 0.03 mcg/kg/m, D5.45 at 20 mL an hour, and vital AF at 35 mL an hour, which is goal. We did a Doppler of the lower extremities. It was positive for DVT. An attempt to wean the FiO2. Surgery was consulted for a possible tracheostomy and PEG tube placement. The patient be started on IV heparin, and Coumadin will be discontinued. White count 19.6, hemoglobin 13.8, hematocrit 43.6, platelet count 92,000. PT 13.4, INR 1.3. Sodium 146, potassium 5.4, chlorides 112, CO2 29, anion gap 5, BUN 100, creatinine 1.23. Calcium 8.3. Microbiology is currently negative. Chest x-ray shows diffuse bilateral infiltrates, unchanged. Dopplers of the legs, show a DVT, bilaterally. Objective - Vital Signs Vital signs: Vital Signs Temp 99 F 02/12/21 08:00 Pulse 66 02/12/21 09:00 Resp 30 H 02/12/21 09:00 BP 135/56 02/12/21 08:00 Pulse Ox 93 L 02/12/21 09:00 Intake & Output 02/11/21 02/12/21 02/12/21 18:59 06:59 18:59 Intake Total 4691.627 8751.530 647.122 Output Total 1410 1385 410 Balance 145.479 183.530 237.122 Weight 160 kg 160 kg Intake: IV 276 276 92 Dextrose 5%-0.45% NaCl 1, 240 240 80 000 ml @ 20 mls/hr IV . Q24H [facility] Rx#:[id number] presssure bag 36 36 12 Intake, IV Titration 679.479 692.530 355.122 Amount Norepinephrine 4 mg In 205.956 115.970 180.542 Sodium Chloride 0.9% 250 ml @ 0.05 MCG/KG/MIN 31. 453 mls/hr IV .Q8H5M [facility] Rx#:[id number] fentaNYL (PF). 1,000 mcg 194.663 200 In Sodium Chloride 0.9% 80 ml @ 0.5 MCG/KG/HR 8. 255 mls/hr IV .Q12H7M [facility] Rx#:[id number] propofoL 1,000 mg In 278.86 376.56 174.58 Empty Bag 1 bag @ Titrate IV .Q0M [facility] Rx#: [id number] Tube Feeding 420 420 140 Other 180 180 60 Output: Urine 1410 1385 410 Other: Voiding Method Indwelling Catheter Indwelling Catheter Indwelling Catheter ABP, PAP, CO, CI - Last Documented Arterial Blood Pressure 118/45 - Exam No acute distress, sedated, with an orally placed endotracheal tube and NG tube. Saturations are 93%. HEENT examination is grossly unremarkable. Neck supple. Full range of motion. No adenopathy thyromegaly or neck vein distention. Cardiovascular examination reveals regular rhythm rate. S1-S2 normal. No S3 or S4. No discernible murmur noted. Heart rate is 66 bpm. Heart sounds are diminished. Lungs reveal coarse bilateral rhonchi. No wheezes or crackles. Breath sounds are equal bilaterally. Saturations are 93%. Abdomen soft bowel sounds are heard. No masses or tenderness. Extremities reveal chronic venous stasis changes, and bilateral lateral lower extremity edema. No cyanosis or clubbing. Skin is without rash or lesion. Neurologic examination cannot be adequately assessed as the patient's currently sedated. - Labs CBC & Chem 7: 02/12/21 04:00 02/12/21 04:00 Labs: Abnormal Lab Results - Last 24 Hours (Table) 02/11/21 02/11/21 02/11/21 Range/Units 12:46 17:32 23:33 WBC (3.8-10.6) k/uL RBC (4.30-5.90) m/uL MCV (80.0-100.0) fL Plt Count (150-450) k/uL Neutrophils # (1.3-7.7) k/uL Lymphocytes # (1.0-4.8) k/uL PT (9.0-12.0) sec INR (<1.2) ABG pH (7.35-7.45) ABG pCO2 (35-45) mmHg ABG pO2 (83-108) mmHg ABG HCO3 (21-25) mmol/L ABG Total CO2 (19-24) mmol/L ABG O2 Saturation (94-97) % Sodium (137-145) mmol/L Potassium (3.5-5.1) mmol/L Chloride (98-107) mmol/L BUN (9-20) mg/dL Glucose (74-99) mg/dL POC Glucose (mg/dL) 174 H 156 H 200 H (75-99) mg/dL Calcium (8.4-10.2) mg/dL 02/12/21 02/12/21 02/12/21 Range/Units 04:00 04:00 04:45 WBC 19.6 H (3.8-10.6) k/uL RBC 4.28 L (4.30-5.90) m/uL MCV 101.9 H (80.0-100.0) fL Plt Count 92 L (150-450) k/uL Neutrophils # 18.5 H (1.3-7.7) k/uL Lymphocytes # 0.4 L (1.0-4.8) k/uL PT 13.4 H (9.0-12.0) sec INR 1.3 H (<1.2) ABG pH (7.35-7.45) ABG pCO2 (35-45) mmHg ABG pO2 (83-108) mmHg ABG HCO3 (21-25) mmol/L ABG Total CO2 (19-24) mmol/L ABG O2 Saturation (94-97) % Sodium 146 H (137-145) mmol/L Potassium 5.4 H (3.5-5.1) mmol/L Chloride 112 H (98-107) mmol/L BUN 100 H (9-20) mg/dL Glucose 164 H (74-99) mg/dL POC Glucose (mg/dL) (75-99) mg/dL Calcium 8.3 L (8.4-10.2) mg/dL 02/12/21 02/12/21 Range/Units 05:29 05:38 WBC (3.8-10.6) k/uL RBC (4.30-5.90) m/uL MCV (80.0-100.0) fL Plt Count (150-450) k/uL Neutrophils # (1.3-7.7) k/uL Lymphocytes # (1.0-4.8) k/uL PT (9.0-12.0) sec INR (<1.2) ABG pH 7.32 L (7.35-7.45) ABG pCO2 56 H (35-45) mmHg ABG pO2 69 L (83-108) mmHg ABG HCO3 29 H (21-25) mmol/L ABG Total CO2 31 H (19-24) mmol/L ABG O2 Saturation 93.9 L (94-97) % Sodium (137-145) mmol/L Potassium (3.5-5.1) mmol/L Chloride (98-107) mmol/L BUN (9-20) mg/dL Glucose (74-99) mg/dL POC Glucose (mg/dL) 140 H (75-99) mg/dL Calcium (8.4-10.2) mg/dL Assessment and Plan Assessment: Acute hypoxemic respiratory failure secondary to coronavirus associated pneumonia, status post intubation and mechanical ventilation on 02/05/2021. Acute kidney injury. Bilateral lower extremity DVT, diagnosed on 02/12/2021. Previous history of DVT. Obesity. Chronic back pain. History of COPD/asthma. Prior history of pancreatitis. History of essential hypertension. Acute urinary tract infection. Plan: Plan dated 02/10/2021. The patient is way ahead on fluids, hence, his fluids to be cut back. We will make them KVO. The patient will be given a dose of IV Lasix. We'll DC the ceftriaxone at this time. We continue with enteral feedings and nutritional support, and vitamin cocktail, as well as Decadron, and blood thinner. A dditional recommendations and suggestions are forthcoming. Prognosis is guarded. The patient is still on 50% PEEP of 12. He's been intubated since the eighth. He may require tracheostomy and PEG tube placement should he not show improvement. Plan dated 02/11/2021. Will have nephrology see the patient. The patient was weaned off the Nimbex. He remains on fentanyl, fall, and norepinephrine. The patient is receiving nutrition at goal. Blood gases are reasonable. He is on 50% PEEP of 12. We will continue to follow make recommendations where appropriate. The patient continues on Decadron and blood thinner. Additional recommendations and suggestions are forthcoming. Prognosis is guarded. Plan dated 02/12/2021. Dopplers of the lower extremities reveal bilateral DVT. The patient's Coumadin will be discontinued. The patient be started on IV heparin. In addition, it appears likely the patient will need a tracheostomy and PEG tube. Surgery is consulted. We will attempt to wean the FiO2. The patient remains on propofol, and fentanyl, and a small amount of norepinephrine. Overall prognosis remains very guarded. We will continue to follow make recommendations where appro priate. Labs, x-rays, and all medications are reviewed. Time with Patient: Greater than 30
[2021-02-12 11:24] LABS: Glucose,Whole Blood 170 mg/dL (75-99)
[2021-02-12] MEDS ORDERED: FUROSEMIDE 10 MG/ML 4 ML VIAL IV STA (13:59)
[2021-02-12] MEDS: CISATRACURIUM 200 MG in SODIUM CHLORIDE 0.9% 180 ML IV SCH (14:12)
[2021-02-12] MEDS: DEXTROSE 5%-0.45% NACL 1,000 ML IV SCH (14:19)
--- NOTE | 2021-02-12 14:26 | PN ---
PROGRESS NOTE Patient is seen for followup for acute kidney injury. Patient's serum creatinine is staying at about 1.2 mg/dL. His sodium was elevated at 146. Patient has good urine output at about 100 mL/hour. He is not maintained on any IV fluids at this point. Levophed is at 0.03 mcg/kg. On examination, vital signs are reviewed. Blood pressure 118/45, heart rate 66 per minute. Patient is not examined. He is discussed with nursing staff. FiO2 is down to 60%. Patient remains with significant chronic skin changes, lower extremities, and chronic edema. Tolerating tube feeds. Labs show sodium 146, potassium 5.4, chloride 112, BUN 100, serum creatinine 1.23. ASSESSMENT: 1. Acute kidney injury, nonoliguric, acute tubular necrosis, with volume overload. Will give a dose of Lasix today. This will also help with the hyperkalemia. 2. Hypernatremia associated with free water deficit. Increase free water down the feeding tube. 3. COVID pneumonia, currently on the vent. 4. Acute hypoxic respiratory failure, maintained on the vent. PLAN: Lasix IV x1. Increase free water down the feeding tube. Continue off of IV fluids. MMODL / IJN: [id number] /
--- NOTE | 2021-02-12 16:10 | P.GSHP ---
History of Present Illness H&P Date: 02/12/21 CHIEF COMPLAINT: COVID-19 pneumonia Reason for consult tracheostomy and PEG tube placement HISTORY OF PRESENT ILLNESS: This is a 60-year-old male who was admitted to the hospital on 02/02/2021 for worsening shortness of breath and evidence of Covid pneumonia. Patient required to be intubated on 02/05/2021. Patient remains in the ICU intubated and sedated. He has developed bilateral lower extremity DVT and is currently on IV heparin drip. Patient's Coumadin was discontinued today. INR 1.3. Patient is propofol, fentanyl and a small amount of norepinephrine. He is on a PEEP of 12 FiO2 70%. Surgical service was consulted for tracheostomy and PEG tube placement. PAST MEDICAL HISTORY: See list. PAST SURGICAL HISTORY: See list. MEDICATIONS: See list. ALLERGIES: See list. SOCIAL HISTORY: No illicit drug use. REVIEW OF SYSTEMS: Unable to obtain. Patient intubated and sedated. PHYSICAL EXAM: VITAL SIGNS: Reviewed GENERAL: Well-developed in no acute distress. HEENT: No sclera icterus. Moist buccal mucosa. Head is atraumatic, normocephalic. No nasal drainage. ABDOMEN: Soft. Obese. Nondistended. Nontender NEUROLOGIC: Intubated and sedated LABORATORY DATA: WBC is 19.6 Hgb 13.8 platelets 92 INR 1.3 Sodium 146 potassium 5.4 creatinine 1.23 Albumin 2.4 IMAGING: Chest x-ray correlate for pneumonia, ARDS Venous Doppler positive for bilateral lower extremity DVT ASSESSMENT: 1. Acute hypoxic respiratory failure secondary to COVID-19 pneumonia 2. Severe protein calorie malnutrition 3. Hyperkalemia PLAN: -Patient scheduled for tracheostomy and PEG tube placement on 02/14/[address] chang -IV heparin will need to be held the morning of procedure -Hyperkalemia management per nephrology. -Continue ICU management -Continue supportive care Thank you for this consultation Physician Medical Educator note has been reviewed by physician. Signing provider agrees with the documented findings, assessment, and plan of care. 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, chronic low back pain/spinal stenosis/scoliosis, pancreatitis, gout History of Any Multi-Drug Resistant Organisms: None Reported Past Surgical History: Appendectomy, Cholecystectomy, Orthopedic Surgery Additional Past Surgical History / Comment(s): meniscus repair rt knee, lt wrist surgery fracture/pins Past Anesthesia/Blood Transfusion Reactions: No Reported Reaction Smoking Status: Never smoker - Past Family History Mother Family Medical History: Cancer, Deep Vein Thrombosis (DVT) Additional Family Medical History / Comment(s): Mother of lung cancer Father Family Medical History: No Reported History Medications and Allergies Home Medications Medication Instructions Recorded Confirmed Type Meloxicam [Mobic] 7.5 mg PO DAILY 09/11/16 02/02/21 History oxyCODONE-APAP 10-325MG [Percocet 1 tab PO Q6H PRN 09/11/16 02/02/21 History 10-325 mg] Albuterol Inhaler [Ventolin Hfa 2 puff INHALATION RT-Q4H PRN 02/02/21 02/02/21 History Inhaler] Allopurinol [Zyloprim] 300 mg PO BID 02/02/21 02/02/21 History Ammonium Lactate Cream [Lac-Hydrin 1 applic TOPICAL DAILY PRN 02/02/21 02/02/21 History 12% Cream] Cephalexin [Keflex] 500 mg PO Q12HR 02/02/21 02/02/21 History Cyclobenzaprine [Flexeril] 10 mg PO TID PRN 02/02/21 02/02/21 History Diclofenac Sodium Gel [Voltaren 1 gm TOPICAL DAILY PRN 02/02/21 02/02/21 History Gel] Famotidine [Pepcid] 40 mg PO HS 02/02/21 02/02/21 History Gabapentin 1,600 mg PO BID 02/02/21 02/02/21 History Lisinopril-Hctz 10-12.5 mg 1 tab PO BID 02/02/21 02/02/21 History [Zestoretic 10-12.5] Warfarin [Coumadin] 5 mg PO DIRECTED 02/02/21 02/02/21 History Warfarin [Coumadin] 7.5 mg PO DIRECTED 02/02/21 02/02/21 History predniSONE See Taper PO DAILY 02/02/21 02/02/21 History Allergies Allergy/AdvReac Type Severity Reaction Status Date / Time doxycycline Allergy Unknown Verified 02/02/21 16:48 Surgical - Exam Vital Signs Temp Pulse Resp BP Pulse Ox 98.4 F 99 28 H 101/67 67 L 02/02/21 14:57 02/02/21 14:57 02/02/21 14:57 02/02/21 14:57 02/02/21 14:57 Results - Labs 02/12/21 04:00 02/12/21 04:00 Abnormal Lab Results - Last 24 Hours (Table) 02/11/21 02/11/21 02/12/21 Range/Units 17:32 23:33 04:00 WBC 19.6 H (3.8-10.6) k/uL RBC 4.28 L (4.30-5.90) m/uL MCV 101.9 H (80.0-100.0) fL Plt Count 92 L (150-450) k/uL Neutrophils # 18.5 H (1.3-7.7) k/uL Lymphocytes # 0.4 L (1.0-4.8) k/uL PT (9.0-12.0) sec INR (<1.2) ABG pH (7.35-7.45) ABG pCO2 (35-45) mmHg ABG pO2 (83-108) mmHg ABG HCO3 (21-25) mmol/L ABG Total CO2 (19-24) mmol/L ABG O2 Saturation (94-97) % Sodium (137-145) mmol/L Potassium (3.5-5.1) mmol/L Chloride (98-107) mmol/L BUN (9-20) mg/dL Glucose (74-99) mg/dL POC Glucose (mg/dL) 156 H 200 H (75-99) mg/dL Calcium (8.4-10.2) mg/dL 02/12/21 02/12/21 02/12/21 Range/Units 04:00 04:45 05:29 WBC (3.8-10.6) k/uL RBC (4.30-5.90) m/uL MCV (80.0-100.0) fL Plt Count (150-450) k/uL Neutrophils # (1.3-7.7) k/uL Lymphocytes # (1.0-4.8) k/uL PT 13.4 H (9.0-12.0) sec INR 1.3 H (<1.2) ABG pH 7.32 L (7.35-7.45) ABG pCO2 56 H (35-45) mmHg ABG pO2 69 L (83-108) mmHg ABG HCO3 29 H (21-25) mmol/L ABG Total CO2 31 H (19-24) mmol/L ABG O2 Saturation 93.9 L (94-97) % Sodium 146 H (137-145) mmol/L Potassium 5.4 H (3.5-5.1) mmol/L Chloride 112 H (98-107) mmol/L BUN 100 H (9-20) mg/dL Glucose 164 H (74-99) mg/dL POC Glucose (mg/dL) (75-99) mg/dL Calcium 8.3 L (8.4-10.2) mg/dL 02/12/21 02/12/21 Range/Units 05:38 11:22 WBC (3.8-10.6) k/uL RBC (4.30-5.90) m/uL MCV (80.0-100.0) fL Plt Count (150-450) k/uL Neutrophils # (1.3-7.7) k/uL Lymphocytes # (1.0-4.8) k/uL PT (9.0-12.0) sec INR (<1.2) ABG pH (7.35-7.45) ABG pCO2 (35-45) mmHg ABG pO2 (83-108) mmHg ABG HCO3 (21-25) mmol/L ABG Total CO2 (19-24) mmol/L ABG O2 Saturation (94-97) % Sodium (137-145) mmol/L Potassium (3.5-5.1) mmol/L Chloride (98-107) mmol/L BUN (9-20) mg/dL Glucose (74-99) mg/dL POC Glucose (mg/dL) 140 H 170 H (75-99) mg/dL Calcium (8.4-10.2) mg/dL Diabetes panel 02/12/21 Range/Units 04:00 Sodium 146 H (137-145) mmol/L Potassium 5.4 H (3.5-5.1) mmol/L Chloride 112 H (98-107) mmol/L Carbon Dioxide 29 (22-30) mmol/L BUN 100 H (9-20) mg/dL Creatinine 1.23 (0.66-1.25) mg/dL Glucose 164 H (74-99) mg/dL Calcium 8.3 L (8.4-10.2) mg/dL Calcium panel 02/12/21 Range/Units 04:00 Calcium 8.3 L (8.4-10.2) mg/dL Pituitary panel 02/12/21 Range/Units 04:00 Sodium 146 H (137-145) mmol/L Potassium 5.4 H (3.5-5.1) mmol/L Chloride 112 H (98-107) mmol/L Carbon Dioxide 29 (22-30) mmol/L BUN 100 H (9-20) mg/dL Creatinine 1.23 (0.66-1.25) mg/dL Glucose 164 H (74-99) mg/dL Calcium 8.3 L (8.4-10.2) mg/dL Adrenal panel 02/12/21 Range/Units 04:00 Sodium 146 H (137-145) mmol/L Potassium 5.4 H (3.5-5.1) mmol/L Chloride 112 H (98-107) mmol/L Carbon Dioxide 29 (22-30) mmol/L BUN 100 H (9-20) mg/dL Creatinine 1.23 (0.66-1.25) mg/dL Glucose 164 H (74-99) mg/dL Calcium 8.3 L (8.4-10.2) mg/dL
--- NOTE | 2021-02-12 16:16 | CDI ---
Documentation Clarification Form Date: 02/11/2021 11:21:00 AM From: Diane Nick Admit Date: 02/02/2021 04:30:00 PM Patient Name: Luther Garcia Visit Number: [id number] Discharge Date: ATTENTION: The Clinical Documentation Specialists (CDI) and [facility] Coding Staff appreciate your assistance in clarifying documentation. Please respond to the clarification below the line at the bottom and electronically sign. The CDI & [facility] Coding staff will review the response and follow-up if needed. Please note: Queries are made part of the Legal Health Record. If you have any questions, please contact the author of this message via ITS. Dr. Stoddard Sheet A pressure injury ulcer is documented by Nursing 02/10, pressure injury assessment. Based on this information and the findings below, is there an additional diagnosis that is clinically appropriate for this patient? History/Risk Factors: 60-year-old male presents to the ED with generalized weakness and fatigue. The patient is positive COVID 19. Medical History: BMI 46.7, Asthma and COPD. Clinical Indicators: Location: Left buttock Wound description: Reddened area, Blanchable,> 3 seconds with small non blanchable purple area. Treatment: Absorbent pad, Turn 2 every 2 hours Is there an additional diagnosis that is clinically appropriate for this patient? [ ] Left Buttock Pressure Ulcer unstageable [ ] Left Buttock Deep tissue injury [ ] Other condition, please specify [ ] Unable to determine Clinical Definitions: Stage 1 Pressure Ulcer: intact skin, non-blanching redness of local area Stage 2 Pressure Ulcer: Partial thickness, loss of dermis, pink wound bed Stage 3 Pressure Ulcer: Full thickness tissue loss Stage 4 Pressure Ulcer: Full thickness tissue loss with exposed bone, tendon, or muscle. Unstageable pressure ulcer: Full thickness tissue loss in which the base of the ulcer is covered by slough (yellow, lamb, kyle, green or brown) and/or eschar (lamb, brown or black) in the wound bed. (Template Last Revised: April 2020) Unable to determine MTDD
[2021-02-12 17:00] LABS: Glucose,Whole Blood 198 mg/dL (75-99)
[2021-02-12] MEDS ORDERED: WARFARIN 3 MG TAB PO ONE (18:00)
[2021-02-12] MEDS: ACETAMINOPHEN TAB 325 MG TAB PO PRN (20:32)
--- NOTE | 2021-02-12 22:16 | P.PN ---
Subjective Patient is 60-year-old male with a known history of asthma/COPD, history of DVT, chronic low back pain, osteoarthritis and morbid obesity with BMI 46.7 presents to ER with complaints of generalized weakness and fatigue and worsening shortness of breath and exertional dyspnea. Patient states that he has been having symptoms for the past 5-6 days and his and other family members were also tested positive for covid 19 infection. Patient has been having generalized weakness and fatigue. No complaints of chest pain. Does have cough without any sputum production. No nausea vomiting or abdominal pain or diarrhea. Chest x-ray showed diffuse residual coarsening and moderate patchy airspace opacities bilaterally. Findings may represent Covid 19 pneumonia. EKG showed normal sinus rhythm Laboratory data showed WBC 7.6 hemoglobin 10.9 and platelets 167 lymphocytes 0.4 INR 1.9 and d-dimer is 1.16 Sodium 126 potassium 4.8 chloride 89 BUN 6 T5 and creatinine 1.85 calcium 7.9 AST 219 ALT 55 alk phos 63 ALT is 2347 and CRP 24.0 Procalcitonin 0.69, Covid 19 PCR detected. Patient is not vaccinated. 02/03/2021 Patient is currently in the emergency room awaiting for self care unit transfer. Patient is currently on BiPAP 16 x 6 with 100% FiO2. Patient is still having shortness of breath and he appears to be in mild distress and unable to tolerate BiPAP. Otherwise patient has been afebrile. Currently being continued on dexamethasone, warfarin dosing and multivitamins. Patient was started on ceftriaxone for possible urinary tract infection. Laboratory data showed sodium 128 potassium 4.3 chloride 91 BUN 60 and creatinine 1.8 LDH 893 and CRP 21.9 No complaints of chest pain. Patient is awake alert and oriented 3. Pulmonary is on board. 02/04/2021 Patient remains in the emergency department. Currently on BiPAP with 100% FiO2. Patient is saturating mid 80s. Sitting up in the bed. Still tachypneic and anxious. Awake alert and oriented. Laboratory showed WBC 11.2 hemoglobin 15.7 and platelets 202 lymphocytes 0.4 Sodium 131 potassium 4.3 chloride 94 bicarb is 28 BUN 75 creatinine 1.42. Urine culture is pending. Patient is being current on ceftriaxone. Patient is being continued on dexamethasone, Coumadin and multivitamins. Pulmonary is following. 02/05/2021 Patient is on BiPAP with FiO2 100%. Patient is restless and tachypneic. Pulling out tubes. Oxygen saturations around 82% to 90% while on BiPAP. Patient has been afebrile. Currently being continued on dexamethasone and Coumadin dosing. INR is 4.8 toda y. Laboratory data showed WBC 16.1 hemoglobin 16.1 platelets 170 BUN 77 creatinine 1.16 and troponin 0 0.042. Patient is also being current ceftriaxone for acute urinary tract infection. Urine culture showed no growth. Pulmonary is following. Patient does not want to get intubated. 02/06/2021 Patient was transferred to MICU. Intubated and on mechanical ventilator. Patient is sedated and multiple drips including propofol, fentanyl and Nimbex. Patient is also requiring norepinephrine. Laboratory showed WBC 20.7 hemoglobin 15.7 platelets 173 INR 5.8 Sodium 138 potassium 4.6 BUN 77 creatinine 1.43 LDH 3075 and CRP 15.1 AST 262 ALT 93 alk phos 94 and blood sugar is 188. Patient is being continued ceftriaxone, dexamethasone IV and Coumadin on hold. Patient is also on IV hydration with normal saline at 75 cc/h. Chest x-ray showed patchy infiltrates throughout both lung griffiths no change. Correlate clinically and follow-up and resolution is recommended. 02/07/2021 Patient is seen and evaluated and follow-up continues to be closely monitored in the ICU with pulmonary bookkeeping machine operator following closely. Patient remains on sedation with propofol and fentanyl and is also continued on Nimbex and currently attempting to wean norepinephrine. Patient also continues on IV ceftriaxone for the possibility of a UTI although urine culture show no growth for 18 hours and will repeat pro calcitonin and consider discontinuing IV antibiotics. Patient also continues on vitamin and zinc along with Lovenox and IV dexamethasone and will continue. Pulmonary bookkeeping machine operator following and patient continues to be on mechanical vent and FiO2 is at 50% with a PEEP of 14 and per nursing staff no attempts at weaning today. Chest x-ray was done and pending. Inflammatory markers continue to be elevated although trending down. 02/08/2021 This is a pleasant 60 years old male with multiple medical problems was admitted for respiratory distress secondary to bilateral Covid pneumonia and acute hypoxic respiratory failure and on the top of that bacterial superinfection is suspected with his procalcitonin elevated at 0.6 and 0.43 and patient was placed on ceftriaxone currently. Cystoscopy the ICU monitor closely and followed by pulmonary/critical care team. Labs showing leukocytosis of 16.6 while his steroids. D-dimer 1.5, LDH elevated 1965, CRP 9.0. Mildly elevated liver enzymes. He is also on warfarin with INR is subtherapeutic at 1.5. Creatinine is trending down to 1.4 down to 1.2 however patient looks like he has chronic kidney disease stage III. Currently covered with vitamin C, vitamin D, zinc, dexamethasone, ceftriaxone, normal saline 75 mL/h, warfarin and Protonix 02/09/2021 The patient remains in the ICU sedated and intubated on mechanical ventilation with pulmonary/critical care team following him closely. Patient remains clinically the same is still tachypneic he still on critical condition. WBC slightly better 13.6, liver enzymes mildly elevated, INR is 1.6 and today he will receive 3 mg of iodine. Sodium slightly elevated 146 and his IV fluid was changed to D5 half-normal saline. He remains on ceftriaxone, dexamethasone, multiple vitamins and warfarin 02/10/2021 Patient remains in critical condition needing intubation and sedation with pulmonary/critical care team following him closely and help with vent management. Distal significantly tachypneic. jesus stable, WBC is normal today 9.6. Creatinine 1.1. INR was 1.6 yesterday and 1.5 today and her receiving 3 mg today. Still on steroids, vitamins, also he received 1 time dose of Lasix while his ceftriaxone and D5 half-normal saline at 75Milliliters per hour both are discontinued 02/11/2021 Patient is in the ICU status post intubation. He is on mechanical ventilation with pulmonary/critical care team on the case. He still tachypneic with FiO2 of 70%. Labs showing leukocytosis 16 K, INR actually is trending down 1.4 and received 6 mg of warfarin today. Creatinine within baseline of 1.26. Sodium is stable at 145. His hydrochlorothiazide/lisinopril was discontinued for borderline blood pres sure on midodrine started. Remains on dexamethasone, vitamin C, D and zinc. 02/12/2021 patient remains in the ICU intubated and sedated with no much progress in his clinical condition despite optical medical treatment and prolonged hospitalization with pulmonary/critical care team following him closely. Today surgery team were consulted for PEG tube and tracheostomy placement on 02/14 Also he has bilateral DVT while his on warfarin, patient was started on heparin drip. He remains on dexamethasone, multiple vitamins. Objective - Vital Signs Vital signs: Vital Signs Temp 99 F 02/12/21 08:00 Pulse 66 02/12/21 09:00 Resp 30 H 02/12/21 09:00 BP 135/56 02/12/21 08:00 Pulse Ox 93 L 02/12/21 09:00 Intake & Output 02/11/21 02/12/21 02/12/21 18:59 06:59 18:59 Intake Total 4384.711 8700.530 647.122 Output Total 1410 1385 410 Balance 145.479 183.530 237.122 Weight 160 kg 160 kg Intake: IV 276 276 92 Dextrose 5%-0.45% NaCl 1, 240 240 80 000 ml @ 20 mls/hr IV . Q24H [facility] Rx#:[id number] presssure bag 36 36 12 Intake, IV Titration 679.479 692.530 355.122 Amount Norepinephrine 4 mg In 205.956 115.970 180.542 Sodium Chloride 0.9% 250 ml @ 0.05 MCG/KG/MIN 31. 453 mls/hr IV .Q8H5M [facility] Rx#:[id number] fentaNYL (PF). 1,000 mcg 194.663 200 In Sodium Chloride 0.9% 80 ml @ 0.5 MCG/KG/HR 8. 255 mls/hr IV .Q12H7M [facility] Rx#:[id number] propofoL 1,000 mg In 278.86 376.56 174.58 Empty Bag 1 bag @ Titrate IV .Q0M [facility] Rx#: [id number] Tube Feeding 420 420 140 Other 180 180 60 Output: Urine 1410 1385 410 Other: Voiding Method Indwelling Catheter Indwelling Catheter Indwelling Catheter ABP, PAP, CO, CI - Last Documented Arterial Blood Pressure 118/45 - Exam -GENERAL: The patient is intubated and sedated HEENT: Pupils are round and equally reacting to light. EOMI. No scleral icterus. No conjunctival pallor. Normocephalic, atraumatic. No pharyngeal erythema. No thyromegaly. CARDIOVASCULAR: S1 and S2 present. No murmurs, rubs, or gallops. -PULMONARY: Chest is clear to auscultation, no wheezing . bilateral crepitation Abdomen: soft, nontender, nondistended, normoactive bowel sounds. No palpable organomegaly. MUSCULOSKELETAL: No joint swelling or deformity. EXTREMITIES: No cyanosis, clubbing, or pedal edema. NEUROLOGICAL: Gross neurological examination did not reveal any focal deficits. SKIN: No rashes. no petechiae. - Labs CBC & Chem 7: 02/12/21 04:00 02/12/21 04:00 Labs: Abnormal Lab Results - Last 24 Hours (Table) 02/11/21 02/11/21 02/11/21 Range/Units 12:46 17:32 23:33 WBC (3.8-10.6) k/uL RBC (4.30-5.90) m/uL MCV (80.0-100.0) fL Plt Count (150-450) k/uL Neutrophils # (1.3-7.7) k/uL Lymphocytes # (1.0-4.8) k/uL PT (9.0-12.0) sec INR (<1.2) ABG pH (7.35-7.45) ABG pCO2 (35-45) mmHg ABG pO2 (83-108) mmHg ABG HCO3 (21-25) mmol/L ABG Total CO2 (19-24) mmol/L ABG O2 Saturation (94-97) % Sodium (137-145) mmol/L Potassium (3.5-5.1) mmol/L Chloride (98-107) mmol/L BUN (9-20) mg/dL Glucose (74-99) mg/dL POC Glucose (mg/dL) 174 H 156 H 200 H (75-99) mg/dL Calcium (8.4-10.2) mg/dL 02/12/21 02/12/21 02/12/21 Range/Units 04:00 04:00 04:45 WBC 19.6 H (3.8-10.6) k/uL RBC 4.28 L (4.30-5.90) m/uL MCV 101.9 H (80.0-100.0) fL Plt Count 92 L (150-450) k/uL Neutrophils # 18.5 H (1.3-7.7) k/uL Lymphocytes # 0.4 L (1.0-4.8) k/uL PT 13.4 H (9.0-12.0) sec INR 1.3 H (<1.2) ABG pH (7.35-7.45) ABG pCO2 (35-45) mmHg ABG pO2 (83-108) mmHg ABG HCO3 (21-25) mmol/L ABG Total CO2 (19-24) mmol/L ABG O2 Saturation (94-97) % Sodium 146 H (137-145) mmol/L Potassium 5.4 H (3.5-5.1) mmol/L Chloride 112 H (98-107) mmol/L BUN 100 H (9-20) mg/dL Glucose 164 H (74-99) mg/dL POC Glucose (mg/dL) (75-99) mg/dL Calcium 8.3 L (8.4-10.2) mg/dL 02/12/21 02/12/21 02/12/21 Range/Units 05:29 05:38 11:22 WBC (3.8-10.6) k/uL RBC (4.30-5.90) m/uL MCV (80.0-100.0) fL Plt Count (150-450) k/uL Neutrophils # (1.3-7.7) k/uL Lymphocytes # (1.0-4.8) k/uL PT (9.0-12.0) sec INR (<1.2) ABG pH 7.32 L (7.35-7.45) ABG pCO2 56 H (35-45) mmHg ABG pO2 69 L (83-108) mmHg ABG HCO3 29 H (21-25) mmol/L ABG Total CO2 31 H (19-24) mmol/L ABG O2 Saturation 93.9 L (94-97) % Sodium (137-145) mmol/L Potassium (3.5-5.1) mmol/L Chloride (98-107) mmol/L BUN (9-20) mg/dL Glucose (74-99) mg/dL POC Glucose (mg/dL) 140 H 170 H (75-99) mg/dL Calcium (8.4-10.2) mg/dL Assessment and Plan Assessment: Bilateral Covid pneumonia Acute hypoxic respiratory failure Increased inflammatory markers Chronic kidney disease, stage III Acute UTI, finished treatment history of DVT currently on anticoagulation with Coumadin. Morbid obesity with BMI 46.7 Chronic low back pain COPD/asthma Osteoarthritis Plan: This is a pleasant 60 years old male who presents with Bilateral Covid pneumonia and hypoxia Continue with vitamin C, vitamin D, and zinc. Continue with dexamethasone Pulmonary team consult Continue with mechanical ventilation for critical care team. Patient is scheduled for tracheostomy and PEG tube placement on 02/14 Heparin drip Labs and medication were reviewed.. Continue same treatment. Continue with symptomatic treatment. Resume home medication. Monitor lytes and vitals. DVT and GI prophylaxis. Further recommendations as per clinical course of the patient DVT prophylaxis: warfarin/Heparin drip GI Prophylaxis: Ppi Prognosis is guarded
[2021-02-12 23:19] LABS: Glucose,Whole Blood 229 mg/dL (75-99)
[2021-02-13] MEDS ORDERED: AMIODARONE IN DEXTROSE,ISO-OSM 150 MG/100 ML PLAST..BAG IV ONE (00:26)
[2021-02-13] MEDS: fentaNYL (PF). 1,000 MCG in SODIUM CHLORIDE 0.9% 80 ML IV SCH ×3 (03:15→18:16)
[2021-02-13] MEDS: ARTIFICIAL TEARS-HYPROMELLOSE DROPS 15 ML BTL BOTH EYES SCH ×5 (03:18→19:42)
[2021-02-13 03:55] LABS: Basophils % (A) 0 %; Eosinophils % (A) 0 %; HCT 40.9 % (39.0-53.0); HGB 12.9 gm/dL (13.0-17.5); Hypochromasia Slight; Lymphocytes # (A) 0.4 k/uL (1.0-4.8); Lymphocytes % (A) 3 %; MCH 32.3 pg (25.0-35.0); MCHC 31.7 g/dL (31.0-37.0); MCV 101.9 fL (80.0-100.0); Macrocytosis Slight; Mean Platelet Volume 10.2; Monocytes # (A) 0.4 k/uL (0-1.0); Monocytes % (A) 3 %; Neutrophils # (A) 12.2 k/uL (1.3-7.7); Neutrophils % (A) 93 %; Platelet Count 112 k/uL (150-450); RBC 4.01 m/uL (4.30-5.90); RDW 13.9 % (11.5-15.5); WBC 13.1 k/uL (3.8-10.6)
[2021-02-13 04:25] LABS: INR 1.4 (<1.2); Prothrombin Time 14.1 sec (9.0-12.0)
[2021-02-13 04:27] LABS: Partial Thromboplastin Time 113.5 sec (22.0-30.0)
[2021-02-13 05:33] LABS: Glucose,Whole Blood 176 mg/dL (75-99)
[2021-02-13] MEDS: INSULIN ASPART (NovoLOG) 100 UNIT/ML VIAL SQ SCH ×4 (05:34→23:21)
[2021-02-13 05:39] LABS: ABG Base Excess 5.1 mmol/L; ABG HCO3 31 mmol/L (21-25); ABG Oxygen Saturation 96.2 % (94-97); ABG PCO2 54 mmHg (35-45); ABG PH 7.36 (7.35-7.45); ABG PO2 81 mmHg (83-108); ABG TCO2 32 mmol/L (19-24); Allen Test Performed? Yes
[2021-02-13 06:04] LABS: Calcium 8.8 mg/dL (8.4-10.2); Potassium 5.2 mmol/L (3.5-5.1)
[2021-02-13] MEDS: MIDODRINE 5 MG TAB PO SCH ×3 (06:38→17:07)
[2021-02-13] MEDS: HEPARIN SOD,PORK IN 0.45% NACL 25,000 UNIT in 0.45% NACL 1 250ML.BAG IV SCH ×3 (06:46→19:42)
[2021-02-13] MEDS: NOREPINEPHRINE 4 MG in SODIUM CHLORIDE 0.9% 250 ML IV SCH ×2 (06:47→19:33)
--- NOTE | 2021-02-13 09:00 | XR ---
EXAMINATION TYPE: XR chest 1V portable DATE OF EXAM: 02/13/2021 Comparison: 02/12/2021 Clinical History: 60-year-old male assess lungs Findings: ET tube satisfactory. NG tube courses to the lower aspect of the radiograph but the upper abdomen is excluded. Right IJ CVC tip likely in the right atrium. Hyperinflation. Diffuse interstitial opacities persist with patchy lower lung airspace opacity and likely small pleural effusions. Impression: Correlate for continued CHF with interstitial pulmonary edema superimposed on COPD. Continued small t o moderate bilateral pleural effusions with adjacent atelectasis and/or consolidation.
[2021-02-13] MEDS: allopurinoL 300 MG TAB PO SCH ×2 (09:02→21:10)
[2021-02-13] MEDS: ASCORBIC ACID 500 MG TAB PO SCH (09:03)
[2021-02-13] MEDS: CHOLECALCIFEROL 25 MCG (1000 IU) TABLET PO SCH (09:03)
[2021-02-13] MEDS: CHLORHEXIDINE GLUCONATE 15 ML CUP MUCOUS MEM SCH ×2 (09:03→21:10)
[2021-02-13] MEDS: DEXAMETHASONE SOD PHOSPHATE 10 MG/ML 1 ML VIAL IVP SCH (09:03)
[2021-02-13] MEDS: PANTOPRAZOLE 40 MG/10 ML VIAL IVP SCH (09:05)
[2021-02-13] MEDS: GABAPENTIN 400 MG CAP PO SCH ×2 (09:05→21:10)
[2021-02-13] MEDS: ZINC SULFATE 220 MG CAP PO SCH (09:07)
[2021-02-13] MEDS ORDERED: DEXTROSE 5% IN WATER 1,000 ML IV ONE (09:21)
--- NOTE | 2021-02-13 09:22 | P.PN ---
Subjective Progress Note Date: 02/13/21 Principal diagnosis: Coronavirus associated pneumonia. On 02/05/2021 patient seen in follow-up on selective care unit, patient is currently on BiPAP with FiO2 100%, he is very restless, he frequently removes the tubing, becomes more short of breath, he desaturates, he has required lorazepam 1 mg every 4 hours for anxiety. He is currently on Decadron 6 more gram daily, he is on empiric antibiotics in the form of ceftriaxone, he is on Coumadin, and his INR today is 4.8, the rest of his lab work is still pending for today. His urinalysis showed possibility of urinary tract infection, urine culture not show any growth. No fever or chills. His last chest x-ray was done 2 days ago showing diffuse residual coarsening and moderate patchy airspace opacities bilaterally. There is chronic elevation of the right hemidiaphragm. His last set of inflammatory markers was on 02/03/2021, but noted improvements in his inflammatory markers. Reevaluated today on 02/06/2021, patient was transferred to the ICU yesterday, mostly because his pulmonary status continued to deteriorate, patient remained hypoxic, continued to remove his BiPAP mask, transferred into the ICU, placed on Precedex initially, and kept him on BiPAP, however patient continued to saturate, and I was notified about the nurses that his clinical status is getting worse, recommended immediate intubation and mechanical ventilation. Patient is now intubated, mechanically ventilated. He is on assist control rate of 30 tidal volume 450 FiO2 60% and PEEP of 14. ABG showed a pO2 of 86 pCO2 of 52 pH of 7.36, patient remains on multiple drips including propofol at 40 mcg/kg/m, fentanyl 1 mcg/kg/h Nimbex 1.5 mcg/kg/m. Patient is also requiring norepinephrine at 0.1 mcg/kg/m. LDH today is extremely high over 3000. WBC count is elevated at 20.7 hemoglobin 15.7 his electrolytes are normal however his renal profile showed a BUN of 77 creatinine 1.47 chest x-ray showed patchy bilateral infiltrates, slight improvement compared to chest x-ray prior to intubation. His INR today is 5.8, hence I plan to reverse his INR are at least give him fresh frozen plasma and vitamin K in order to safely place a central line and arterial line in this patient. Reevaluated today on 02/07/2021, patient remains in the ICU, intubated and mechanically ventilated. He is on assist control rate of 30 tidal volume 450 Fi O2 50% and PEEP of 14. ABG showed a pO2 of 75 pCO2 48 pH of 7.40. Chest x-ray continues to show bilateral infiltrates with a right lower lobe consolidation. No changes were made in his ventilator settings today. Agent remains on multiple drips including propofol at 40 mcg/kg/m, fentanyl at 20 mcg/kg/h Nimbex at 2 mcg/minute, norepinephrine at 0.03 mcg/kg/m, IV fluid saline at 75 mL/h he is also on enteral feedings. LDH is improving down to 1966 CRP is 9 about the same. Electrolytes are about the same but BUN is 74 creatinine is 1.35. Again chest x-ray showed no major change since admission. Education list was reviewed, patient is on allopurinol, ascorbic acid, Rocephin, vitamin D, De cadron 6 mg IV push daily, Neurontin 1600 mg twice a day, lisinopril, insulin, lorazepam, patient is on Protonix 40 mg IV push daily, Coumadin 2 mg daily. And the patient is on zinc Reevaluated today on 02/08/2021, remains in the ICU, intubated and mechanically ventilated. Patient is on assist control rate of 30 tidal volume 450 FiO2 50% PEEP is 14. ABG showed a pO2 of 73 pCO2 46 pH of 7.40 hence no changes were made in his present ventilator settings. Chest x-ray continues to show not much of a significant change, bilateral infiltrates persist. Patient is on fentanyl at 1 mcg/kg/h, propofol at 40 mcg/kg/minute, Nimbex at 2 mcg/kg/m, norepinephrine at 0.02 mcg/kg/m. Patient is on vital AF rate 45 per hour. WBC count today 16.6 hemoglobin 14 INR 1.5 patient is on Coumadin for history of DVT. Sodium 145 potassium 4.4 chloride 111 bicarb 28 BUN is 74 creatinine is 1.22. Remains on vitamin C, Rocephin, vitamin D, Decadron 6 mg IV push daily, Neurontin, lisinopril, Protonix, Coumadin 2 mg daily and is also on zinc. Reevaluated today on 02/09/2021, patient remains in the ICU intubated and mechanically ventilated. He is on assist control rate of 30 tidal volume 450 FiO2 50% PEEP is 14. His ABG showed a pO2 of 96 pCO2 48 pH of 7.37, hence I recommended decreasing the PEEP down to 12. Patient is on multiple drips including fentanyl at 1 mcg/kg/h propofol at 40 mcg/kg/m Nimbex at 1.5 mcg/kg/m norepinephrine at 0.01 mcg/kg/m is also on enteral feeding in the form of vital AF 3 5 mL per hour. His labs showed relatively normal electrolytes except for slightly elevated sodium hence his IV fluid was changed to D545 at 50 mL per hour. Patient had relatively normal electrolytes otherwise except for the sodium being 146. His BUN is 76 creatinine is 1.24 slightly higher hence we'll increase his IV fluid today. Chest x-ray continues to show bilateral infiltrates, chest x-ray is not much different from his baseline. There may be a slight improvement in his right lower lobe consolidation. Endotracheal tube had to be advanced about to see and distally. Medications list was reviewed, patient is on allopurinol, albuterol, vitamin C, Rocephin, Peridex, vitamin D, Flexeril, Decadron 6 mg IV push daily, gabapentin, insulin as per scale, lisinopril with hydrochlorothiazide, Reglan when necessary, Protonix 40 mg IV push daily, and zinc. Progress note dated 02/10/2021. This is a 60-year-old male seen in the intensive care unit, room 250. He was admitted to the hospital on February 02, he moved to the intensive care unit on February 05. He was intubated on February 05, for refractory hypoxemia secondary to coronavirus associated pneumonia. He remains on the mechanical ventilator, on the volume assist control mode, rate 30, tidal volume 450, FiO2 50%, and PEEP of 12. Blood gases show pO2 72, pCO2 of 49, and a pH is 7.35. The patient remains on Nimbex at 1.5 mcg/kg/m, D5.45 at 75 mL an hour, propofol at 40 mcg/kg/m, and fentanyl 1 mcg/kg/h. The patient's also on a small dose of norepinephrine at 0.006 mcg/kg/m, and receiving vital AF 1.2 at 45 mL an hour. The patient's IV will be discontinued. We'll add some Lasix to his regimen. We will DC his ceftriaxone. White count 9.6, hemoglobin 13.3, hematocrit 42.4, and platelet count 94,000. PT 15.5 with an INR 1.5. Sodium 145, potassium 4.9, chlorides 114, CO2 25, anion gap 6, BUN 88, creatinine 1.16, with an albumin of 2.4. Chest x-ray shows diffuse bilateral infiltrates. Progress note dated 02/11/2021. 60-year-old male, seen in room 250. He was admitted to the hospital on February 02, moved to the intensive care unit on the , and intubated on February 05 for refractory hypoxemic respiratory failure, secondary to coronavirus associated pneumonia. The patient remains on the mechanical ventilator. He is on the volume assist control mode, rate 30, tidal volume 450, FiO2 50%, PEEP of 12. Blood gases show a pO2 of 64, pCO2 of 51, pH is 7.35. The patient's on dextrose and half-normal saline at 20 mL an hour, propofol at 40 mcg/kg/m, fentanyl at 1 mcg/kg/h, norepinephrine at 5 mcg/m, and vital AF, 1.2, and 36 mL an hour, which is goal. The patient's renal function has declined, and will have nephrology see the patient in consultation. Currently, white count of 16, hemoglobin 13.9, hematocrit 43.6, and platelet count 109,000. Sodium 145, potassium 5, chlorides 112, CO2 27, anion gap 6, BUN 106, creatinine 1.26. Calcium is 8.0. Chest x-ray shows diffuse bilateral infiltrates, largely unchanged, consistent with coronavirus associated pneumonia. Progress note dated 02/12/2021. 60-year-old male, again seen in room 250. The patient was admitted to the hospital on February 02, and moved to the intensive care unit on February 05. The patient was intubated on February 05 for refractory hypoxemic respiratory failure, secondary to coronavirus associated pneumonia. The patient remains ventilated. He is on the volume assist control mode, rate 30, tidal volume 450, FiO2 70%, and PEEP of 12. Blood gases show pO2 of 69, pCO2 56, and a pH is 7.32. The patient is on propofol for at 40 mcg/kg/m, fentanyl at 1 mcg/kg/h, norepinephrine at 0.03 mcg/kg/m, D5.45 at 20 mL an hour, and vital AF at 35 mL an hour, which is goal. We did a Doppler of the lower extremities. It was positive for DVT. An attempt to wean the FiO2. Surgery was consulted for a possible tracheostomy and PEG tube placement. The patient be started on IV heparin, and Coumadin will be discontinued. White count 19.6, hemoglobin 13.8, hematocrit 43.6, platelet count 92,000. PT 13.4, INR 1.3. Sodium 146, potassium 5.4, chlorides 112, CO2 29, anion gap 5, BUN 100, creatinine 1.23. Calcium 8.3. Microbiology is currently negative. Chest x-ray shows diffuse bilateral infiltrates, unchanged. Dopplers of the legs, show a DVT, bilaterally. Progress note dated 02/13/2021. 60-year-old male, again seen in room 250. He was admitted to the hospital on 02/02/2021, and moved to the intensive care unit on 02/05/2021. The patient was intubated on the same day, or coronavirus associated pneumonia, and hypoxemic respiratory failure. The patient remains on the mechanical ventilator. He is on the volume assist control mode, rate 30, tidal volume 450, FiO2 50%, and PEEP of 12. Blood gases show pO2 of 81, pCO2 of 54, and a pH is 7.36. The patient's on propofol at 30 mcg/kg/m, fentanyl at 1 mcg/kg/h, norepinephrine at 0.02 mcg/kg/m, heparin via weightbase protocol, and D5.45 at 20 mL an hour. In addition, the patient's getting tube feeds at 38 mL an hour, which is goal. The patient is apparently scheduled to have a tracheostomy and PEG tube placement on Wednesday by surgery. Dopplers of the lower extremities yesterday revealed bilateral extremity DVTs. White count 13.1, hemoglobin 12.9, hematocrit 40.9, platelet count 112,000. PTT was 113.5. Sodium 149, potassium 5.2, chlorides 1:15, CO2 30, anion gap 4, BUN 93, and creatinine 1.18. Chest x-ray shows diffuse bilateral infiltrates consistent with coronavirus associated pneumonia. Objective - Vital Signs Vital signs: Vital Signs Temp 99.5 F 02/13/21 04:00 Pulse 73 02/13/21 07:00 Resp 30 H 02/13/21 07:00 BP 131/50 02/12/21 18:56 Pulse Ox 93 L 02/13/21 07:00 Intake & Output 02/12/21 02/13/21 02/13/21 18:59 06:59 18:59 Intake Total 4564.413 8869.751 322 Output Total 1860 1775 155 Balance -263.154 112.751 167 Weight 160 kg 159.7 kg Intake: IV 276 276 46 Dextrose 5%-0.45% NaCl 1, 240 240 40 000 ml @ 20 mls/hr IV . Q24H [facility] Rx#:[id number] presssure bag 36 36 6 Intake, IV Titration 876.846 893.751 100 Amount Heparin Sod,Pork in 0.45% 438.603 NaCl 25,000 unit In 0.45 % NaCl 1 250ml.bag @ 14. 375 UNITS/KG/HR 23 mls/hr IV .[id number] [facility] Rx#: [id number] Norepinephrine 4 mg In 302.266 180.748 Sodium Chloride 0.9% 250 ml @ 0.05 MCG/KG/MIN 31. 453 mls/hr IV .Q8H5M [facility] Rx#:[id number] fentaNYL (PF). 1,000 mcg 200 100 In Sodium Chloride 0.9% 80 ml @ 0.5 MCG/KG/HR 8. 255 mls/hr IV .Q12H7M [facility] Rx#:[id number] propofoL 1,000 mg In 374.58 174.4 100 Empty Bag 1 bag @ Titrate IV .Q0M [facility] Rx#: [id number] Tube Feeding 324 418 76 Other 120 300 100 Output: Urine 1860 1775 155 Other: Voiding Method Indwelling Catheter Indwelling Catheter Indwelling Catheter ABP, PAP, CO, CI - Last Documented Arterial Blood Pressure 133/56 - Exam No acute distress, sedated, with an orally placed endotracheal tube and NG tube. Saturations are 93%. HEENT examination is grossly unremarkable. Neck supple. Full range of motion. No adenopathy thyromegaly or neck vein distention. Cardiovascular examination reveals regular rhythm rate. S1-S2 normal. No S3 or S4. No discernible murmur noted. Heart rate is 73 bpm. Heart sounds are diminished. Lungs reveal coarse bilateral rhonchi. No wheezes or crackles. Breath sounds are equal bilaterally. Saturations are 93%. Abdomen soft bowel sounds are heard. No masses or tenderness. Extremities reveal chronic venous stasis changes, and bilateral lateral lower extremity edema. No cyanosis or clubbing. Skin is without rash or lesion. Neurologic examination cannot be adequately assessed as the patient's currently sedated. - Labs CBC & Chem 7: 02/13/21 03:30 02/13/21 03:30 Labs: Abnormal Lab Results - Last 24 Hours (Table) 02/12/21 02/12/21 02/12/21 Range/Units 11:22 16:56 17:00 WBC (3.8-10.6) k/uL RBC (4.30-5.90) m/uL Hgb (13.0-17.5) gm/dL MCV (80.0-100.0) fL Plt Count (150-450) k/uL Neutrophils # (1.3-7.7) k/uL Lymphocytes # (1.0-4.8) k/uL PT (9.0-12.0) sec INR (<1.2) APTT 64.9 H (22.0-30.0) sec ABG pCO2 (35-45) mmHg ABG pO2 (83-108) mmHg ABG HCO3 (21-25) mmol/L ABG Total CO2 (19-24) mmol/L Sodium (137-145) mmol/L Potassium (3.5-5.1) mmol/L Chloride (98-107) mmol/L BUN (9-20) mg/dL Glucose (74-99) mg/dL POC Glucose (mg/dL) 170 H 198 H (75-99) mg/dL 02/12/21 02/13/21 02/13/21 Range/Units 23:18 03:30 03:30 WBC 13.1 H (3.8-10.6) k/uL RBC 4.01 L (4.30-5.90) m/uL Hgb 12.9 L (13.0-17.5) gm/dL MCV 101.9 H (80.0-100.0) fL Plt Count 112 L (150-450) k/uL Neutrophils # 12.2 H (1.3-7.7) k/uL Lymphocytes # 0.4 L (1.0-4.8) k/uL PT 14.1 H (9.0-12.0) sec INR 1.4 H (<1.2) APTT 113.5 H* (22.0-30.0) sec ABG pCO2 (35-45) mmHg ABG pO2 (83-108) mmHg ABG HCO3 (21-25) mmol/L ABG Total CO2 (19-24) mmol/L Sodium (137-145) mmol/L Potassium (3.5-5.1) mmol/L Chloride (98-107) mmol/L BUN (9-20) mg/dL Glucose (74-99) mg/dL POC Glucose (mg/dL) 229 H (75-99) mg/dL 02/13/21 02/13/21 02/13/21 Range/Units 03:30 05:31 05:36 WBC (3.8-10.6) k/uL RBC (4.30-5.90) m/uL Hgb (13.0-17.5) gm/dL MCV (80.0-100.0) fL Plt Count (150-450) k/uL Neutrophils # (1.3-7.7) k/uL Lymphocytes # (1.0-4.8) k/uL PT (9.0-12.0) sec INR (<1.2) APTT (22.0-30.0) sec ABG pCO2 54 H (35-45) mmHg ABG pO2 81 L (83-108) mmHg ABG HCO3 31 H (21-25) mmol/L ABG Total CO2 32 H (19-24) mmol/L Sodium 149 H (137-145) mmol/L Potassium 5.2 H (3.5-5.1) mmol/L Chloride 115 H (98-107) mmol/L BUN 93 H (9-20) mg/dL Glucose 190 H (74-99) mg/dL POC Glucose (mg/dL) 176 H (75-99) mg/dL Assessment and Plan Assessment: Acute hypoxemic respiratory failure secondary to coronavirus associated pneumonia, status post intubation and mechanical ventilation on 02/05/2021. Acute kidney injury. Bilateral lower extremity DVT, diagnosed on 02/12/2021. Previous history of DVT. Obesity. Chronic back pain. History of COPD/asthma. Prior history of pancreatitis. History of essential hypertension. Acute urinary tract infection. Plan: Plan dated 02/10/2021. The patient is way ahead on fluids, hence, his fluids to be cut back. We will make them KVO. The patient will be given a dose of IV Lasix. We'll DC the ceftriaxone at this time. We continue with enteral feedings and nutritional support, and vitamin cocktail, as well as Decadron, and blood thinner. Additional recommendations and suggestions are forthcoming. Prognosis is guarded. The patient is still on 50% PEEP of 12. He's been intubated since the eighth. He may require tracheostomy and PEG tube placement should he not show improvement. Plan dated 02/11/2021. Will have nephrology see the patient. The patient was weaned off the Nimbex. He remains on fentanyl, fall, and norepinephrine. The patient is receiving nutrition at goal. Blood gases are reasonable. He is on 50% PEEP of 12. We will continue to follow make recommendations where appropriate. The patient continues on Decadron and blood thinner. Additional recommendations and suggestions are forthcoming. Prognosis is guarded. Plan dated 02/12/2021. Dopplers of the lower extremities reveal bilateral DVT. The patient's Coumadin will be discontinued. The patient be started on IV heparin. In addition, it appears likely the patient will need a tracheostomy and PEG tube. Surgery is consulted. We will attempt to wean the FiO2. The patient remains on propofol, and fentanyl, and a small amount of norepinephrine. Overall prognosis remains very guarded. We will continue to follow make recommendations where ap propriate. Labs, x-rays, and all medications are reviewed. Plan dated 02/13/2021. We will change patient's IV fluids to D5W at KVO. The patient is mildly hyponatremic. We can increase water flushes as well. The patient is scheduled to have a tracheostomy and PEG tube placement tomorrow. The patient's on IV heparin right now because of bilateral lower extremity DVTs. The patient's overall prognosis remains guarded. The patient remains on propofol, fentanyl, and norepinephrine. We will continue to follow make recommendations were appropriate. The rest of the medications are reviewed. Chest x-ray, and labs are also reviewed. Time with Patient: Greater than 30
[2021-02-13] MEDS ORDERED: FUROSEMIDE 10 MG/ML 10 ML VIAL IV STA (11:06)
[2021-02-13 11:13] LABS: Glucose,Whole Blood 216 mg/dL (75-99)
[2021-02-13] MEDS: CISATRACURIUM 200 MG in SODIUM CHLORIDE 0.9% 180 ML IV SCH (11:17)
--- NOTE | 2021-02-13 14:48 | PN ---
PROGRESS NOTE Patient is seen for followup for acute kidney injury. Renal function is stable. Serum creatinine has improved. Patient received a dose of IV Lasix yesterday. His sodium has gone up to 149. Free water was increased via tube feeding. On examination today, patient remains on the vent. Case is discussed with nursing staff. Patient is seen from the door. Vital signs are reviewed. Blood pressure 136/55, heart rate 61 per minute. He is maintained on low-dose Levophed. Examination is not performed. FiO2 is at 50%. Patient remains on propofol. Labs show sodium of 149, potassium 5.2, chloride 115, CO2 is 30, BUN 93, serum creatinine 1.18. ASSESSMENT: 1. Acute kidney injury, acute tubular necrosis, currently nonoliguric, stable. Serum creatinine slightly improved. Patient received a dose of IV Lasix yesterday. We will repeat IV Lasix again today. 2. Hypernatremia associated with free water deficit. Increase free water down the feeding tube. Patient has been started on D5W. Hopefully we can discontinue the D5W due to significant fluid overload. 3. Acute hypoxic respiratory failure, currently on the vent. 4. COVID pneumonia. PLAN: Lasix IV x1. Increase free water down the feeding tube. Will discontinue D5W once sodium is better. Repeat labs in a.m. MMODL / IJN: [id number] /
--- NOTE | 2021-02-13 15:59 | P.PN ---
Subjective Progress Note Date: 02/13/21 CHIEF COMPLAINT: COVID-19 pneumonia HISTORY OF PRESENT ILLNESS: Patient in the ICU on mechanical ventilation. Scheduled for tracheostomy and PEG tube placement for tomorrow. He is on IV heparin for bilateral lower extremity DVT. Currently on a FiO2 50% PEEP of 12. Afebrile. WBC is 13.1 Hgb 12.9 sodium 149 potassium 5.2 creatinine 1.18. Discussed case with nephrology they are managing the hypernatremia and hyperkalemia. PHYSICAL EXAM: VITAL SIGNS: Reviewed. GENERAL: Well-developed in no acute distress. HEENT: No sclera icterus. Moist buccal mucosa. Head is atraumatic, normocephalic. ABDOMEN: Soft. Nondistended. Nontender. NEUROLOGIC: Intubated and sedated ASSESSMENT: 1. Acute hypoxic respiratory failure secondary to COVID-19 pneumonia 2. Severe protein calorie malnutrition 3. Hyperkalemia 4. Hypernatremia PLAN: -Patient scheduled for tracheostomy and PEG tube placement on 02/14/[address] chang -Hold tube feedings after midnight -Hold IV heparin starting at 8 AM tomorrow morning Physician Binman note has been reviewed by physician. Signing provider agrees with the documented findings, assessment, and plan of care. Objective - Vital Signs Vital signs: Vital Signs Temp 98.5 F 02/13/21 12:00 Pulse 72 02/13/21 14:00 Resp 30 H 02/13/21 14:00 BP 131/50 02/12/21 18:56 Pulse Ox 93 L 02/13/21 14:00 Intake & Output 02/12/21 02/13/21 02/13/21 18:59 06:59 18:59 Intake Total 7834.388 8606.751 1511.2 Output Total 1860 1775 1545 Balance -263.154 112.751 -33.8 Weight 160 kg 159.7 kg Intake: IV 276 276 514 Dextrose 5% in Water 1, 450 000 ml @ 75 mls/hr IV . [id number] Rx#:[id number] Dextrose 5%-0.45% NaCl 1, 240 240 40 000 ml @ 20 mls/hr IV . Q24H [facility] Rx#:[id number] presssure bag 36 36 24 Intake, IV Titration 876.846 893.751 355.2 Amount Heparin Sod,Pork in 0.45% 438.603 NaCl 25,000 unit In 0.45 % NaCl 1 250ml.bag @ 14. 375 UNITS/KG/HR 23 mls/hr IV .[id number] [facility] Rx#: [id number] Norepinephrine 4 mg In 302.266 180.748 Sodium Chloride 0.9% 250 ml @ 0.05 MCG/KG/MIN 31. 453 mls/hr IV .Q8H5M [facility] Rx#:[id number] fentaNYL (PF). 1,000 mcg 200 100 100 In Sodium Chloride 0.9% 80 ml @ 0.5 MCG/KG/HR 8. 255 mls/hr IV .Q12H7M [facility] Rx#:[id number] propofoL 1,000 mg In 374.58 174.4 255.2 Empty Bag 1 bag @ Titrate IV .Q0M [facility] Rx#: [id number] Tube Feeding 324 418 342 Other 120 300 300 Output: Urine 1860 1775 1545 Other: Voiding Method Indwelling Catheter Indwelling Catheter Indwelling Catheter ABP, PAP, CO, CI - Last Documented Arterial Blood Pressure 97/47 - Labs CBC & Chem 7: 02/13/21 03:30 02/13/21 03:30 Labs: Abnormal Lab Results - Last 24 Hours (Table) 02/12/21 02/12/21 02/12/21 Range/Units 16:56 17:00 23:18 WBC (3.8-10.6) k/uL RBC (4.30-5.90) m/uL Hgb (13.0-17.5) gm/dL MCV (80.0-100.0) fL Plt Count (150-450) k/uL Neutrophils # (1.3-7.7) k/uL Lymphocytes # (1.0-4.8) k/uL PT (9.0-12.0) sec INR (<1.2) APTT 64.9 H (22.0-30.0) sec ABG pCO2 (35-45) mmHg ABG pO2 (83-108) mmHg ABG HCO3 (21-25) mmol/L ABG Total CO2 (19-24) mmol/L Sodium (137-145) mmol/L Potassium (3.5-5.1) mmol/L Chloride (98-107) mmol/L BUN (9-20) mg/dL Glucose (74-99) mg/dL POC Glucose (mg/dL) 198 H 229 H (75-99) mg/dL 02/13/21 02/13/21 02/13/21 Range/Units 03:30 03:30 03:30 WBC 13.1 H (3.8-10.6) k/uL RBC 4.01 L (4.30-5.90) m/uL Hgb 12.9 L (13.0-17.5) gm/dL MCV 101.9 H (80.0-100.0) fL Plt Count 112 L (150-450) k/uL Neutrophils # 12.2 H (1.3-7.7) k/uL Lymphocytes # 0.4 L (1.0-4.8) k/uL PT 14.1 H (9.0-12.0) sec INR 1.4 H (<1.2) APTT 113.5 H* (22.0-30.0) sec ABG pCO2 (35-45) mmHg ABG pO2 (83-108) mmHg ABG HCO3 (21-25) mmol/L ABG Total CO2 (19-24) mmol/L Sodium 149 H (137-145) mmol/L Potassium 5.2 H (3.5-5.1) mmol/L Chloride 115 H (98-107) mmol/L BUN 93 H (9-20) mg/dL Glucose 190 H (74-99) mg/dL POC Glucose (mg/dL) (75-99) mg/dL 02/13/21 02/13/21 02/13/21 Range/Units 05:31 05:36 11:11 WBC (3.8-10.6) k/uL RBC (4.30-5.90) m/uL Hgb (13.0-17.5) gm/dL MCV (80.0-100.0) fL Plt Count (150-450) k/uL Neutrophils # (1.3-7.7) k/uL Lymphocytes # (1.0-4.8) k/uL PT (9.0-12.0) sec INR (<1.2) APTT (22.0-30.0) sec ABG pCO2 54 H (35-45) mmHg ABG pO2 81 L (83-108) mmHg ABG HCO3 31 H (21-25) mmol/L ABG Total CO2 32 H (19-24) mmol/L Sodium (137-145) mmol/L Potassium (3.5-5.1) mmol/L Chloride (98-107) mmol/L BUN (9-20) mg/dL Glucose (74-99) mg/dL POC Glucose (mg/dL) 176 H 216 H (75-99) mg/dL 02/13/21 Range/Units 11:30 WBC (3.8-10.6) k/uL RBC (4.30-5.90) m/uL Hgb (13.0-17.5) gm/dL MCV (80.0-100.0) fL Plt Count (150-450) k/uL Neutrophils # (1.3-7.7) k/uL Lymphocytes # (1.0-4.8) k/uL PT (9.0-12.0) sec INR (<1.2) APTT 63.3 H (22.0-30.0) sec ABG pCO2 (35-45) mmHg ABG pO2 (83-108) mmHg ABG HCO3 (21-25) mmol/L ABG Total CO2 (19-24) mmol/L Sodium (137-145) mmol/L Potassium (3.5-5.1) mmol/L Chloride (98-107) mmol/L BUN (9-20) mg/dL Glucose (74-99) mg/dL POC Glucose (mg/dL) (75-99) mg/dL
[2021-02-13 16:57] LABS: Glucose,Whole Blood 214 mg/dL (75-99)
[2021-02-13] MEDS: ALBUTEROL HFA INHALER INHALATION PRN (19:24)
--- NOTE | 2021-02-13 21:06 | P.PN ---
Subjective Patient is 60-year-old male with a known history of asthma/COPD, history of DVT, chronic low back pain, osteoarthritis and morbid obesity with BMI 46.7 presents to ER with complaints of generalized weakness and fatigue and worsening shortness of breath and exertional dyspnea. Patient states that he has been having symptoms for the past 5-6 days and his and other family members were also tested positive for covid 19 infection. Patient has been having generalized weakness and fatigue. No complaints of chest pain. Does have cough without any sputum production. No nausea vomiting or abdominal pain or diarrhea. Chest x-ray showed diffuse residual coarsening and moderate patchy airspace opacities bilaterally. Findings may represent Covid 19 pneumonia. EKG showed normal sinus rhythm Laboratory data showed WBC 7.6 hemoglobin 10.9 and platelets 167 lymphocytes 0.4 INR 1.9 and d-dimer is 1.16 Sodium 126 potassium 4.8 chloride 89 BUN 6 T5 and creatinine 1.85 calcium 7.9 AST 219 ALT 55 alk phos 63 ALT is 2347 and CRP 24.0 Procalcitonin 0.69, Covid 19 PCR detected. Patient is not vaccinated. 02/03/2021 Patient is currently in the emergency room awaiting for self care unit transfer. Patient is currently on BiPAP 16 x 6 with 100% FiO2. Patient is still having shortness of breath and he appears to be in mild distress and unable to tolerate BiPAP. Otherwise patient has been afebrile. Currently being continued on dexamethasone, warfarin dosing and multivitamins. Patient was started on ceftriaxone for possible urinary tract infection. Laboratory data showed sodium 128 potassium 4.3 chloride 91 BUN 60 and creatinine 1.8 LDH 893 and CRP 21.9 No complaints of chest pain. Patient is awake alert and oriented 3. Pulmonary is on board. 02/04/2021 Patient remains in the emergency department. Currently on BiPAP with 100% FiO2. Patient is saturating mid 80s. Sitting up in the bed. Still tachypneic and anxious. Awake alert and oriented. Laboratory showed WBC 11.2 hemoglobin 15.7 and platelets 202 lymphocytes 0.4 Sodium 131 potassium 4.3 chloride 94 bicarb is 28 BUN 75 creatinine 1.42. Urine culture is pending. Patient is being current on ceftriaxone. Patient is being continued on dexamethasone, Coumadin and multivitamins. Pulmonary is following. 02/05/2021 Patient is on BiPAP with FiO2 100%. Patient is restless and tachypneic. Pulling out tubes. Oxygen saturations around 82% to 90% while on BiPAP. Patient has been afebrile. Currently being continued on dexamethasone and Coumadin dosing. INR is 4.8 toda y. Laboratory data showed WBC 16.1 hemoglobin 16.1 platelets 170 BUN 77 creatinine 1.16 and troponin 0 0.042. Patient is also being current ceftriaxone for acute urinary tract infection. Urine culture showed no growth. Pulmonary is following. Patient does not want to get intubated. 02/06/2021 Patient was transferred to MICU. Intubated and on mechanical ventilator. Patient is sedated and multiple drips including propofol, fentanyl and Nimbex. Patient is also requiring norepinephrine. Laboratory showed WBC 20.7 hemoglobin 15.7 platelets 173 INR 5.8 Sodium 138 potassium 4.6 BUN 77 creatinine 1.43 LDH 3075 and CRP 15.1 AST 262 ALT 93 alk phos 94 and blood sugar is 188. Patient is being continued ceftriaxone, dexamethasone IV and Coumadin on hold. Patient is also on IV hydration with normal saline at 75 cc/h. Chest x-ray showed patchy infiltrates throughout both lung griffiths no change. Correlate clinically and follow-up and resolution is recommended. 02/07/2021 Patient is seen and evaluated and follow-up continues to be closely monitored in the ICU with pulmonary delivery agent following closely. Patient remains on sedation with propofol and fentanyl and is also continued on Nimbex and currently attempting to wean norepinephrine. Patient also continues on IV ceftriaxone for the possibility of a UTI although urine culture show no growth for 18 hours and will repeat pro calcitonin and consider discontinuing IV antibiotics. Patient also continues on vitamin and zinc along with Lovenox and IV dexamethasone and will continue. Pulmonary delivery agent following and patient continues to be on mechanical vent and FiO2 is at 50% with a PEEP of 14 and per nursing staff no attempts at weaning today. Chest x-ray was done and pending. Inflammatory markers continue to be elevated although trending down. 02/08/2021 This is a pleasant 60 years old male with multiple medical problems was admitted for respiratory distress secondary to bilateral Covid pneumonia and acute hypoxic respiratory failure and on the top of that bacterial superinfection is suspected with his procalcitonin elevated at 0.6 and 0.43 and patient was placed on ceftriaxone currently. Cystoscopy the ICU monitor closely and followed by pulmonary/critical care team. Labs showing leukocytosis of 16.6 while his steroids. D-dimer 1.5, LDH elevated 1965, CRP 9.0. Mildly elevated liver enzymes. He is also on warfarin with INR is subtherapeutic at 1.5. Creatinine is trending down to 1.4 down to 1.2 however patient looks like he has chronic kidney disease stage III. Currently covered with vitamin C, vitamin D, zinc, dexamethasone, ceftriaxone, normal saline 75 mL/h, warfarin and Protonix 02/09/2021 The patient remains in the ICU sedated and intubated on mechanical ventilation with pulmonary/critical care team following him closely. Patient remains clinically the same is still tachypneic he still on critical condition. WBC slightly better 13.6, liver enzymes mildly elevated, INR is 1.6 and today he will receive 3 mg of iodine. Sodium slightly elevated 146 and his IV fluid was changed to D5 half-normal saline. He remains on ceftriaxone, dexamethasone, multiple vitamins and warfarin 02/10/2021 Patient remains in critical condition needing intubation and sedation with pulmonary/critical care team following him closely and help with vent management. Distal significantly tachypneic. jesus stable, WBC is normal today 9.6. Creatinine 1.1. INR was 1.6 yesterday and 1.5 today and her receiving 3 mg today. Still on steroids, vitamins, also he received 1 time dose of Lasix while his ceftriaxone and D5 half-normal saline at 75Milliliters per hour both are discontinued 02/11/2021 Patient is in the ICU status post intubation. He is on mechanical ventilation with pulmonary/critical care team on the case. He still tachypneic with FiO2 of 70%. Labs showing leukocytosis 16 K, INR actually is trending down 1.4 and received 6 mg of warfarin today. Creatinine within baseline of 1.26. Sodium is stable at 145. His hydrochlorothiazide/lisinopril was discontinued for borderline blood pres sure on midodrine started. Remains on dexamethasone, vitamin C, D and zinc. 02/12/2021 patient remains in the ICU intubated and sedated with no much progress in his clinical condition despite optical medical treatment and prolonged hospitalization with pulmonary/critical care team following him closely. Today surgery team were consulted for PEG tube and tracheostomy placement on 02/14 Also he has bilateral DVT while his on warfarin, patient was started on heparin drip. He remains on dexamethasone, multiple vitamins. 02/13/2021 Patient is in the ICU status post intubation and mechanical ventilation with pulmonary/critical care team followed closely. Patient does not make much progress and pulmonary team recommendation PEG tube and tracheostomy placement on the consulted surgery with planned to do the procedure tomorrow. I called the spouse Mrs. Mervat morgan At [phone] and I discussed the case with her including the plan for tracheostomy and PEG tube placement by surgery team tomorrow and all her questions were answered to her satisfaction. Please there is no consent obtained by medical team for this procedure and this has been deferred to surgery team Abdomen the patient is tachypneic hypoxic, leukocytosis of 13 K which is slightly improving Also patient is on heparin drip for newly diagnosed bilateral DVT He is also on dexamethasone, vitamin C, D and zinc. Objective - Vital Signs Vital signs: Vital Signs Temp 98.3 F 02/13/21 08:00 Pulse 65 02/13/21 09:00 Resp 30 H 02/13/21 09:00 BP 131/50 02/12/21 18:56 Pulse Ox 93 L 02/13/21 09:00 Intake & Output 02/12/21 02/13/21 02/13/21 18:59 06:59 18:59 Intake Total 1945.869 9734.751 515.2 Output Total 1860 1775 155 Balance -263.154 112.751 360.2 Weight 160 kg 159.7 kg Intake: IV 276 276 46 Dextrose 5%-0.45% NaCl 1, 240 240 40 000 ml @ 20 mls/hr IV . Q24H [facility] Rx#:[id number] presssure bag 36 36 6 Intake, IV Titration 876.846 893.751 255.2 Amount Heparin Sod,Pork in 0.45% 438.603 NaCl 25,000 unit In 0.45 % NaCl 1 250ml.bag @ 14. 375 UNITS/KG/HR 23 mls/hr IV .[id number] [facility] Rx#: [id number] Norepinephrine 4 mg In 302.266 180.748 Sodium Chloride 0.9% 250 ml @ 0.05 MCG/KG/MIN 31. 453 mls/hr IV .Q8H5M [facility] Rx#:[id number] fentaNYL (PF). 1,000 mcg 200 100 100 In Sodium Chloride 0.9% 80 ml @ 0.5 MCG/KG/HR 8. 255 mls/hr IV .Q12H7M [facility] Rx#:[id number] propofoL 1,000 mg In 374.58 174.4 155.2 Empty Bag 1 bag @ Titrate IV .Q0M [facility] Rx#: [id number] Tube Feeding 324 418 114 Other 120 300 100 Output: Urine 1860 1775 155 Other: Voiding Method Indwelling Catheter Indwelling Catheter Indwelling Catheter ABP, PAP, CO, CI - Last Documented Arterial Blood Pressure 130/55 - Exam -GENERAL: The patient is intubated and sedated HEENT: Pupils are round and equally reacting to light. EOMI. No scleral icterus. No conjunctival pallor. Normocephalic, atraumatic. No pharyngeal erythema. No thyromegaly. CARDIOVASCULAR: S1 and S2 present. No murmurs, rubs, or gallops. -PULMONARY: Chest is clear to auscultation, no wheezing . bilateral crepitation Abdomen: soft, nontender, nondistended, normoactive bowel sounds. No palpable organomegaly. MUSCULOSKELETAL: No joint swelling or deformity. EXTREMITIES: No cyanosis, clubbing, or pedal edema. NEUROLOGICAL: Gross neurological examination did not reveal any focal deficits. SKIN: No rashes. no petechiae. - Labs CBC & Chem 7: 02/13/21 03:30 02/13/21 17:15 Labs: Abnormal Lab Results - Last 24 Hours (Table) 02/12/21 02/12/21 02/12/21 Range/Units 11:22 16:56 17:00 WBC (3.8-10.6) k/uL RBC (4.30-5.90) m/uL Hgb (13.0-17.5) gm/dL MCV (80.0-100.0) fL Plt Count (150-450) k/uL Neutrophils # (1.3-7.7) k/uL Lymphocytes # (1.0-4.8) k/uL PT (9.0-12.0) sec INR (<1.2) APTT 64.9 H (22.0-30.0) sec ABG pCO2 (35-45) mmHg ABG pO2 (83-108) mmHg ABG HCO3 (21-25) mmol/L ABG Total CO2 (19-24) mmol/L Sodium (137-145) mmol/L Potassium (3.5-5.1) mmol/L Chloride (98-107) mmol/L BUN (9-20) mg/dL Glucose (74-99) mg/dL POC Glucose (mg/dL) 170 H 198 H (75-99) mg/dL 02/12/21 02/13/21 02/13/21 Range/Units 23:18 03:30 03:30 WBC 13.1 H (3.8-10.6) k/uL RBC 4.01 L (4.30-5.90) m/uL Hgb 12.9 L (13.0-17.5) gm/dL MCV 101.9 H (80.0-100.0) fL Plt Count 112 L (150-450) k/uL Neutrophils # 12.2 H (1.3-7.7) k/uL Lymphocytes # 0.4 L (1.0-4.8) k/uL PT 14.1 H (9.0-12.0) sec INR 1.4 H (<1.2) APTT 113.5 H* (22.0-30.0) sec ABG pCO2 (35-45) mmHg ABG pO2 (83-108) mmHg ABG HCO3 (21-25) mmol/L ABG Total CO2 (19-24) mmol/L Sodium (137-145) mmol/L Potassium (3.5-5.1) mmol/L Chloride (98-107) mmol/L BUN (9-20) mg/dL Glucose (74-99) mg/dL POC Glucose (mg/dL) 229 H (75-99) mg/dL 02/13/21 02/13/21 02/13/21 Range/Units 03:30 05:31 05:36 WBC (3.8-10.6) k/uL RBC (4.30-5.90) m/uL Hgb (13.0-17.5) gm/dL MCV (80.0-100.0) fL Plt Count (150-450) k/uL Neutrophils # (1.3-7.7) k/uL Lymphocytes # (1.0-4.8) k/uL PT (9.0-12.0) sec INR (<1.2) APTT (22.0-30.0) sec ABG pCO2 54 H (35-45) mmHg ABG pO2 81 L (83-108) mmHg ABG HCO3 31 H (21-25) mmol/L ABG Total CO2 32 H (19-24) mmol/L Sodium 149 H (137-145) mmol/L Potassium 5.2 H (3.5-5.1) mmol/L Chloride 115 H (98-107) mmol/L BUN 93 H (9-20) mg/dL Glucose 190 H (74-99) mg/dL POC Glucose (mg/dL) 176 H (75-99) mg/dL Assessment and Plan Assessment: Bilateral Covid pneumonia Acute hypoxic respiratory failure Increased inflammatory markers Chronic kidney disease, stage III Acute UTI, finished treatment history of DVT currently on anticoagulation with Coumadin. Morbid obesity with BMI 46.7 Chronic low back pain COPD/asthma Osteoarthritis Plan: This is a pleasant 60 years old male who presents with Bilateral Covid pneumonia and hypoxia Continue with vitamin C, vitamin D, and zinc. Continue with dexamethasone Pulmonary team consult Continue with mechanical ventilation for critical care team. Patient is scheduled for tracheostomy and PEG tube placement on 02/14 with suture deep by surgery team Heparin drip Labs and medication were reviewed.. Continue same treatment. Continue with symptomatic treatment. Resume home medication. Monitor lytes and vitals. DVT and GI prophylaxis. Further recommendations as per clinical course of the patient DVT prophylaxis: warfarin/Heparin drip GI Prophylaxis: Ppi Prognosis is guarded
[2021-02-13 23:10] LABS: Glucose,Whole Blood 200 mg/dL (75-99)
[2021-02-14] MEDS: ARTIFICIAL TEARS-HYPROMELLOSE DROPS 15 ML BTL BOTH EYES SCH ×7 (00:30→23:35)
[2021-02-14] MEDS: NOREPINEPHRINE 4 MG in SODIUM CHLORIDE 0.9% 250 ML IV SCH ×4 (01:32→22:59)
[2021-02-14] MEDS: fentaNYL (PF). 1,000 MCG in SODIUM CHLORIDE 0.9% 80 ML IV SCH ×4 (01:33→22:57)
[2021-02-14] MEDS: CISATRACURIUM 200 MG in SODIUM CHLORIDE 0.9% 180 ML IV SCH (02:28)
[2021-02-14 04:28] LABS: HCT 40.4 % (39.0-53.0); HGB 12.6 gm/dL (13.0-17.5); Hypochromasia Slight; MCH 31.9 pg (25.0-35.0); MCHC 31.1 g/dL (31.0-37.0); MCV 102.3 fL (80.0-100.0); Macrocytosis Slight; Mean Platelet Volume 9.4; Platelet Count 138 k/uL (150-450); RBC 3.95 m/uL (4.30-5.90); RDW 14.3 % (11.5-15.5); WBC 10.8 k/uL (3.8-10.6)
[2021-02-14 04:55] LABS: INR 1.2 (<1.2); Partial Thromboplastin Time 64.8 sec (22.0-30.0); Prothrombin Time 12.2 sec (9.0-12.0)
[2021-02-14 05:27] LABS: African American GFR (CKD) >90 (>60 ml/min/1.73 sqM); Anion Gap 6 mmol/L; Blood Urea Nitrogen 93 mg/dL (9-20); Calcium 9.3 mg/dL (8.4-10.2); Carbon Dioxide 29 mmol/L (22-30); Chloride 114 mmol/L (98-107); Glucose 216 mg/dL (74-99); Non-African American GFR(CKD) 85 (>60 ml/min/1.73 sqM); Potassium 5.2 mmol/L (3.5-5.1); Sodium 149 mmol/L (137-145)
[2021-02-14 05:43] LABS: Glucose,Whole Blood 183 mg/dL (75-99)
[2021-02-14] MEDS: INSULIN ASPART (NovoLOG) 100 UNIT/ML VIAL SQ SCH ×4 (05:46→23:35)
[2021-02-14 06:30] LABS: ABG Base Excess 7.5 mmol/L; ABG HCO3 32 mmol/L (21-25); ABG Oxygen Saturation 96.2 % (94-97); ABG PCO2 51 mmHg (35-45); ABG PH 7.41 (7.35-7.45); ABG PO2 83 mmHg (83-108); ABG TCO2 34 mmol/L (19-24); Allen Test Performed? Yes
[2021-02-14] MEDS: MIDODRINE 5 MG TAB PO SCH ×3 (06:40→17:52)
--- NOTE | 2021-02-14 08:31 | XR ---
EXAMINATION TYPE: XR chest 1V portable DATE OF EXAM: 02/14/2021 COMPARISON: 02/13/2021 HISTORY: Shortness of breath TECHNIQUE: Single frontal view of the chest is obtained. FINDINGS: ET tube satisfactory. NG tube courses to the lower aspect of the radiograph but the upper abdomen is excluded. Right IJ CVC tip likely in the right atrium. Hyperinflation. Diffuse interstitia l opacities persist with patchy lower lung airspace opacity and likely small pleural effusions. IMPRESSION: Diffuse bilateral infiltrates correlate for diffuse pneumonia versus CHF.
[2021-02-14] MEDS: GABAPENTIN 400 MG CAP PO SCH ×2 (08:54→20:46)
[2021-02-14] MEDS: DEXAMETHASONE SOD PHOSPHATE 10 MG/ML 1 ML VIAL IVP SCH (08:55)
[2021-02-14] MEDS: PANTOPRAZOLE 40 MG/10 ML VIAL IVP SCH (08:55)
[2021-02-14] MEDS: ZINC SULFATE 220 MG CAP PO SCH (08:55)
[2021-02-14] MEDS: CHOLECALCIFEROL 25 MCG (1000 IU) TABLET PO SCH (08:55)
[2021-02-14] MEDS: ASCORBIC ACID 500 MG TAB PO SCH (08:55)
[2021-02-14] MEDS: CHLORHEXIDINE GLUCONATE 15 ML CUP MUCOUS MEM SCH ×2 (08:55→20:46)
[2021-02-14] MEDS: allopurinoL 300 MG TAB PO SCH ×2 (08:55→20:46)
--- NOTE | 2021-02-14 09:11 | P.PN ---
Subjective Progress Note Date: 02/14/21 Principal diagnosis: Coronavirus associated pneumonia. On 02/05/2021 patient seen in follow-up on selective care unit, patient is currently on BiPAP with FiO2 100%, he is very restless, he frequently removes the tubing, becomes more short of breath, he desaturates, he has required lorazepam 1 mg every 4 hours for anxiety. He is currently on Decadron 6 more gram daily, he is on empiric antibiotics in the form of ceftriaxone, he is on Coumadin, and his INR today is 4.8, the rest of his lab work is still pending for today. His urinalysis showed possibility of urinary tract infection, urine culture not show any growth. No fever or chills. His last chest x-ray was done 2 days ago showing diffuse residual coarsening and moderate patchy airspace opacities bilaterally. There is chronic elevation of the right hemidiaphragm. His last set of inflammatory markers was on 02/03/2021, but noted improvements in his inflammatory markers. Reevaluated today on 02/06/2021, patient was transferred to the ICU yesterday, mostly because his pulmonary status continued to deteriorate, patient remained hypoxic, continued to remove his BiPAP mask, transferred into the ICU, placed on Precedex initially, and kept him on BiPAP, however patient continued to saturate, and I was notified about the nurses that his clinical status is getting worse, recommended immediate intubation and mechanical ventilation. Patient is now intubated, mechanically ventilated. He is on assist control rate of 30 tidal volume 450 FiO2 60% and PEEP of 14. ABG showed a pO2 of 86 pCO2 of 52 pH of 7.36, patient remains on multiple drips including propofol at 40 mcg/kg/m, fentanyl 1 mcg/kg/h Nimbex 1.5 mcg/kg/m. Patient is also requiring norepinephrine at 0.1 mcg/kg/m. LDH today is extremely high over 3000. WBC count is elevated at 20.7 hemoglobin 15.7 his electrolytes are normal however his renal profile showed a BUN of 77 creatinine 1.47 chest x-ray showed patchy bilateral infiltrates, slight improvement compared to chest x-ray prior to intubation. His INR today is 5.8, hence I plan to reverse his INR are at least give him fresh frozen plasma and vitamin K in order to safely place a central line and arterial line in this patient. Reevaluated today on 02/07/2021, patient remains in the ICU, intubated and mechanically ventilated. He is on assist control rate of 30 tidal volume 450 Fi O2 50% and PEEP of 14. ABG showed a pO2 of 75 pCO2 48 pH of 7.40. Chest x-ray continues to show bilateral infiltrates with a right lower lobe consolidation. No changes were made in his ventilator settings today. Agent remains on multiple drips including propofol at 40 mcg/kg/m, fentanyl at 20 mcg/kg/h Nimbex at 2 mcg/minute, norepinephrine at 0.03 mcg/kg/m, IV fluid saline at 75 mL/h he is also on enteral feedings. LDH is improving down to 1966 CRP is 9 about the same. Electrolytes are about the same but BUN is 74 creatinine is 1.35. Again chest x-ray showed no major change since admission. Education list was reviewed, patient is on allopurinol, ascorbic acid, Rocephin, vitamin D, De cadron 6 mg IV push daily, Neurontin 1600 mg twice a day, lisinopril, insulin, lorazepam, patient is on Protonix 40 mg IV push daily, Coumadin 2 mg daily. And the patient is on zinc Reevaluated today on 02/08/2021, remains in the ICU, intubated and mechanically ventilated. Patient is on assist control rate of 30 tidal volume 450 FiO2 50% PEEP is 14. ABG showed a pO2 of 73 pCO2 46 pH of 7.40 hence no changes were made in his present ventilator settings. Chest x-ray continues to show not much of a significant change, bilateral infiltrates persist. Patient is on fentanyl at 1 mcg/kg/h, propofol at 40 mcg/kg/minute, Nimbex at 2 mcg/kg/m, norepinephrine at 0.02 mcg/kg/m. Patient is on vital AF rate 45 per hour. WBC count today 16.6 hemoglobin 14 INR 1.5 patient is on Coumadin for history of DVT. Sodium 145 potassium 4.4 chloride 111 bicarb 28 BUN is 74 creatinine is 1.22. Remains on vitamin C, Rocephin, vitamin D, Decadron 6 mg IV push daily, Neurontin, lisinopril, Protonix, Coumadin 2 mg daily and is also on zinc. Reevaluated today on 02/09/2021, patient remains in the ICU intubated and mechanically ventilated. He is on assist control rate of 30 tidal volume 450 FiO2 50% PEEP is 14. His ABG showed a pO2 of 96 pCO2 48 pH of 7.37, hence I recommended decreasing the PEEP down to 12. Patient is on multiple drips including fentanyl at 1 mcg/kg/h propofol at 40 mcg/kg/m Nimbex at 1.5 mcg/kg/m norepinephrine at 0.01 mcg/kg/m is also on enteral feeding in the form of vital AF 3 5 mL per hour. His labs showed relatively normal electrolytes except for slightly elevated sodium hence his IV fluid was changed to D545 at 50 mL per hour. Patient had relatively normal electrolytes otherwise except for the sodium being 146. His BUN is 76 creatinine is 1.24 slightly higher hence we'll increase his IV fluid today. Chest x-ray continues to show bilateral infiltrates, chest x-ray is not much different from his baseline. There may be a slight improvement in his right lower lobe consolidation. Endotracheal tube had to be advanced about to see and distally. Medications list was reviewed, patient is on allopurinol, albuterol, vitamin C, Rocephin, Peridex, vitamin D, Flexeril, Decadron 6 mg IV push daily, gabapentin, insulin as per scale, lisinopril with hydrochlorothiazide, Reglan when necessary, Protonix 40 mg IV push daily, and zinc. Progress note dated 02/10/2021. This is a 60-year-old male seen in the intensive care unit, room 250. He was admitted to the hospital on February 02, he moved to the intensive care unit on February 05. He was intubated on February 05, for refractory hypoxemia secondary to coronavirus associated pneumonia. He remains on the mechanical ventilator, on the volume assist control mode, rate 30, tidal volume 450, FiO2 50%, and PEEP of 12. Blood gases show pO2 72, pCO2 of 49, and a pH is 7.35. The patient remains on Nimbex at 1.5 mcg/kg/m, D5.45 at 75 mL an hour, propofol at 40 mcg/kg/m, and fentanyl 1 mcg/kg/h. The patient's also on a small dose of norepinephrine at 0.006 mcg/kg/m, and receiving vital AF 1.2 at 45 mL an hour. The patient's IV will be discontinued. We'll add some Lasix to his regimen. We will DC his ceftriaxone. White count 9.6, hemoglobin 13.3, hematocrit 42.4, and platelet count 94,000. PT 15.5 with an INR 1.5. Sodium 145, potassium 4.9, chlorides 114, CO2 25, anion gap 6, BUN 88, creatinine 1.16, with an albumin of 2.4. Chest x-ray shows diffuse bilateral infiltrates. Progress note dated 02/11/2021. 60-year-old male, seen in room 250. He was admitted to the hospital on February 02, moved to the intensive care unit on the , and intubated on February 05 for refractory hypoxemic respiratory failure, secondary to coronavirus associated pneumonia. The patient remains on the mechanical ventilator. He is on the volume assist control mode, rate 30, tidal volume 450, FiO2 50%, PEEP of 12. Blood gases show a pO2 of 64, pCO2 of 51, pH is 7.35. The patient's on dextrose and half-normal saline at 20 mL an hour, propofol at 40 mcg/kg/m, fentanyl at 1 mcg/kg/h, norepinephrine at 5 mcg/m, and vital AF, 1.2, and 36 mL an hour, which is goal. The patient's renal function has declined, and will have nephrology see the patient in consultation. Currently, white count of 16, hemoglobin 13.9, hematocrit 43.6, and platelet count 109,000. Sodium 145, potassium 5, chlorides 112, CO2 27, anion gap 6, BUN 106, creatinine 1.26. Calcium is 8.0. Chest x-ray shows diffuse bilateral infiltrates, largely unchanged, consistent with coronavirus associated pneumonia. Progress note dated 02/12/2021. 60-year-old male, again seen in room 250. The patient was admitted to the hospital on February 02, and moved to the intensive care unit on February 05. The patient was intubated on February 05 for refractory hypoxemic respiratory failure, secondary to coronavirus associated pneumonia. The patient remains ventilated. He is on the volume assist control mode, rate 30, tidal volume 450, FiO2 70%, and PEEP of 12. Blood gases show pO2 of 69, pCO2 56, and a pH is 7.32. The patient is on propofol for at 40 mcg/kg/m, fentanyl at 1 mcg/kg/h, norepinephrine at 0.03 mcg/kg/m, D5.45 at 20 mL an hour, and vital AF at 35 mL an hour, which is goal. We did a Doppler of the lower extremities. It was positive for DVT. An attempt to wean the FiO2. Surgery was consulted for a possible tracheostomy and PEG tube placement. The patient be started on IV heparin, and Coumadin will be discontinued. White count 19.6, hemoglobin 13.8, hematocrit 43.6, platelet count 92,000. PT 13.4, INR 1.3. Sodium 146, potassium 5.4, chlorides 112, CO2 29, anion gap 5, BUN 100, creatinine 1.23. Calcium 8.3. Microbiology is currently negative. Chest x-ray shows diffuse bilateral infiltrates, unchanged. Dopplers of the legs, show a DVT, bilaterally. Progress note dated 02/13/2021. 60-year-old male, again seen in room 250. He was admitted to the hospital on 02/02/2021, and moved to the intensive care unit on 02/05/2021. The patient was intubated on the same day, or coronavirus associated pneumonia, and hypoxemic respiratory failure. The patient remains on the mechanical ventilator. He is on the volume assist control mode, rate 30, tidal volume 450, FiO2 50%, and PEEP of 12. Blood gases show pO2 of 81, pCO2 of 54, and a pH is 7.36. The patient's on propofol at 30 mcg/kg/m, fentanyl at 1 mcg/kg/h, norepinephrine at 0.02 mcg/kg/m, heparin via weightbase protocol, and D5.45 at 20 mL an hour. In addition, the patient's getting tube feeds at 38 mL an hour, which is goal. The patient is apparently scheduled to have a tracheostomy and PEG tube placement on Wednesday by surgery. Dopplers of the lower extremities yesterday revealed bilateral extremity DVTs. White count 13.1, hemoglobin 12.9, hematocrit 40.9, platelet count 112,000. PTT was 113.5. Sodium 149, potassium 5.2, chlorides 1:15, CO2 30, anion gap 4, BUN 93, and creatinine 1.18. Chest x-ray shows diffuse bilateral infiltrates consistent with coronavirus associated pneumonia. Progress note dated 02/14/2021. 60-year-old male, again seen in room 250. He was admitted to the hospital on 02/02/2021, and moved to the intensive care unit on 02/05/2021. The patient was intubated on the same day, for, coronavirus associated pneumonia and hypoxemic respiratory failure. The patient is to have a tracheostomy and PEG tube placed today by surgery. The patient remains on the volume assist control mode, rate 30, tidal volume 450, FiO2 50%, and PEEP of 12. Gases show pO2 of 83, pCO2 of 51, and a pH is 7.41. The patient remains on fentanyl at 1 mcg/kg/h, propofol at 25 mcg/kg/m, norepinephrine is on hold. Heparin was on hold. He is getting D5W at 75 mL an hour, and tube feeds are currently on hold. White count is 10.8, hemoglobin 12.6, hematocrit 40.4, and platelet count 138,000. Sodium 149, potassium 5.2, chlorides 114, CO2 29, anion gap 6, BUN 93, with a creatinine 0.96. Chest x-ray continues to show diffuse bilateral infiltrates consistent with coronavirus pneumonia. Objective - Vital Signs Vital signs: Vital Signs Temp 98.8 F 02/14/21 04:00 Pulse 67 02/14/21 07:00 Resp 30 H 02/14/21 07:00 BP 131/50 02/12/21 18:56 Pulse Ox 94 L 02/14/21 07:00 Intake & Output 02/13/21 02/14/21 02/14/21 18:59 06:59 18:59 Intake Total 2357.606 1861.387 624.527 Output Total 2170 1900 150 Balance 187.606 -38.613 474.527 Weight 157.9 kg 157.9 kg Intake: IV 826 936 78 Dextrose 5% in Water 1, 750 900 75 000 ml @ 75 mls/hr IV . [id number] ONE Rx#:[id number] Dextrose 5%-0.45% NaCl 1, 40 000 ml @ 20 mls/hr IV . Q24H [facility] Rx#:[id number] presssure bag 36 36 3 Intake, IV Titration 537.606 535.387 546.527 Amount Heparin Sod,Pork in 0.45% 235.387 226.893 NaCl 25,000 unit In 0.45 % NaCl 1 250ml.bag @ 14. 375 UNITS/KG/HR 23 mls/hr IV .[id number] [facility] Rx#: [id number] Norepinephrine 4 mg In 82.406 119.634 Sodium Chloride 0.9% 250 ml @ 0.05 MCG/KG/MIN 31. 453 mls/hr IV .Q8H5M [facility] Rx#:[id number] fentaNYL (PF). 1,000 mcg 200 100 100 In Sodium Chloride 0.9% 80 ml @ 0.5 MCG/KG/HR 8. 255 mls/hr IV .Q12H7M [facility] Rx#:[id number] propofoL 1,000 mg In 255.2 200 100 Empty Bag 1 bag @ Titrate IV .Q0M [facility] Rx#: [id number] Tube Feeding 494 190 0 Other 500 200 Output: Urine 2170 1900 150 Other: Voiding Method Indwelling Catheter Indwelling Catheter ABP, PAP, CO, CI - Last Documented Arterial Blood Pressure 132/55 - Exam No acute distress, sedated, with an orally placed endotracheal tube and NG tube. Saturations are 94%. HEENT examination is grossly unremarkable. Neck supple. Full range of motion. No adenopathy thyromegaly or neck vein distention. Cardiovascular examination reveals regular rhythm rate. S1-S2 normal. No S3 or S4. No discernible murmur noted. Heart rate is 67 bpm. Heart sounds are diminished. Lungs reveal coarse bilateral rhonchi. No wheezes or crackles. Breath sounds are equal bilaterally. Saturations are 93%. Abdomen soft bowel sounds are heard. No masses or tenderness. Extremities reveal chronic venous stasis changes, and bilateral lateral lower extremity edema. No cyanosis or clubbing. Skin is without rash or lesion. Neurologic examination cannot be adequately assessed as the patient's currently sedated. - Labs CBC & Chem 7: 02/14/21 04:00 02/14/21 04:00 Labs: Abnormal Lab Results - Last 24 Hours (Table) 02/13/21 02/13/21 02/13/21 Range/Units 11:11 11:30 16:55 WBC (3.8-10.6) k/uL RBC (4.30-5.90) m/uL Hgb (13.0-17.5) gm/dL MCV (80.0-100.0) fL Plt Count (150-450) k/uL PT (9.0-12.0) sec INR (<1.2) APTT 63.3 H (22.0-30.0) sec ABG pCO2 (35-45) mmHg ABG HCO3 (21-25) mmol/L ABG Total CO2 (19-24) mmol/L Sodium (137-145) mmol/L Potassium (3.5-5.1) mmol/L Chloride (98-107) mmol/L BUN (9-20) mg/dL Glucose (74-99) mg/dL POC Glucose (mg/dL) 216 H 214 H (75-99) mg/dL 02/13/21 02/13/21 02/14/21 Range/Units 17:15 23:08 04:00 WBC 10.8 H (3.8-10.6) k/uL RBC 3.95 L (4.30-5.90) m/uL Hgb 12.6 L (13.0-17.5) gm/dL MCV 102.3 H (80.0-100.0) fL Plt Count 138 L (150-450) k/uL PT (9.0-12.0) sec INR (<1.2) APTT (22.0-30.0) sec ABG pCO2 (35-45) mmHg ABG HCO3 (21-25) mmol/L ABG Total CO2 (19-24) mmol/L Sodium 148 H (137-145) mmol/L Potassium (3.5-5.1) mmol/L Chloride (98-107) mmol/L BUN (9-20) mg/dL Glucose (74-99) mg/dL POC Glucose (mg/dL) 200 H (75-99) mg/dL 02/14/21 02/14/21 02/14/21 Range/Units 04:00 04:00 05:41 WBC (3.8-10.6) k/uL RBC (4.30-5.90) m/uL Hgb (13.0-17.5) gm/dL MCV (80.0-100.0) fL Plt Count (150-450) k/uL PT 12.2 H (9.0-12.0) sec INR 1.2 H (<1.2) APTT 64.8 H (22.0-30.0) sec ABG pCO2 (35-45) mmHg ABG HCO3 (21-25) mmol/L ABG Total CO2 (19-24) mmol/L Sodium 149 H (137-145) mmol/L Potassium 5.2 H (3.5-5.1) mmol/L Chloride 114 H (98-107) mmol/L BUN 93 H (9-20) mg/dL Glucose 216 H (74-99) mg/dL POC Glucose (mg/dL) 183 H (75-99) mg/dL 02/14/21 Range/Units 06:22 WBC (3.8-10.6) k/uL RBC (4.30-5.90) m/uL Hgb (13.0-17.5) gm/dL MCV (80.0-100.0) fL Plt Count (150-450) k/uL PT (9.0-12.0) sec INR (<1.2) APTT (22.0-30.0) sec ABG pCO2 51 H (35-45) mmHg ABG HCO3 32 H (21-25) mmol/L ABG Total CO2 34 H (19-24) mmol/L Sodium (137-145) mmol/L Potassium (3.5-5.1) mmol/L Chloride (98-107) mmol/L BUN (9-20) mg/dL Glucose (74-99) mg/dL POC Glucose (mg/dL) (75-99) mg/dL Assessment and Plan Assessment: Acute hypoxemic respiratory failure secondary to coronavirus associated pneumonia, status post intubation and mechanical ventilation on 02/05/2021. Acute kidney injury. Bilateral lower extremity DVT, diagnosed on 02/12/2021. Previous history of DVT. Obesity. Chronic back pain. History of COPD/asthma. Prior history of pancreatitis. History of essential hypertension. Acute urinary tract infection. Plan: Plan dated 02/10/2021. The patient is way ahead on fluids, hence, his fluids to be cut back. We will make them KVO. The patient will be given a dose of IV Lasix. We'll DC the ceftriaxone at this time. We continue with enteral feedings and nutritional support, and vitamin cocktail, as well as Decadron, and blood thinner. Ed tional recommendations and suggestions are forthcoming. Prognosis is guarded. The patient is still on 50% PEEP of 12. He's been intubated since the eighth. He may require tracheostomy and PEG tube placement should he not show improvement. Plan dated 02/11/2021. Will have nephrology see the patient. The patient was weaned off the Nimbex. He remains on fentanyl, fall, and norepinephrine. The patient is receiving nutrition at goal. Blood gases are reasonable. He is on 50% PEEP of 12. We will continue to follow make recommendations where appropriate. The patient continues on Decadron and blood thinner. Additional recommendations and suggestions are forthcoming. Prognosis is guarded. Plan dated 02/12/2021. Dopplers of the lower extremities reveal bilateral DVT. The patient's Coumadin will be discontinued. The patient be started on IV heparin. In addition, it appears likely the patient will need a tracheostomy and PEG tube. Surgery is consulted. We will attempt to wean the FiO2. The patient remains on propofol, and fentanyl, and a small amount of norepinephrine. Overall prognosis remains very guarded. We will continue to follow make recommendations where appropri ate. Labs, x-rays, and all medications are reviewed. Plan dated 02/13/2021. We will change patient's IV fluids to D5W at KVO. The patient is mildly hyponatremic. We can increase water flushes as well. The patient is scheduled to have a tracheostomy and PEG tube placement tomorrow. The patient's on IV heparin right now because of bilateral lower extremity DVTs. The patient's overall prognosis remains guarded. The patient remains on propofol, fentanyl, and norepinephrine. We will continue to follow make recommendations were appropriate. The rest of the medications are reviewed. Chest x-ray, and labs are also reviewed. Plan dated 02/14/2021. The patient remains on the mechanical ventilator. The patient will hopefully have a tracheostomy and PEG tube placement today. The patient remains on fentanyl and propofol. Norepinephrine is currently on hold. IV heparin is currently on hold for the surgery. The patient remains on D5W at 75 mL an hour. The patient's blood gases are reasonable. Chest x-rays unchanged. Medications are extensively reviewed. We will continue to follow make recommendations where appropriate. Prognosis is guarded. Time with Patient: Greater than 30
[2021-02-14] MEDS: DEXTROSE 5% IN WATER 1,000 ML IV SCH ×2 (10:56→23:36)
[2021-02-14 11:47] LABS: Glucose,Whole Blood 211 mg/dL (75-99)
[2021-02-14] MEDS ORDERED: fentaNYL (PF) 50 MCG/ML 2 ML AMP ONE (13:54)
[2021-02-14] MEDS ORDERED: ROCURONIUM 10 MG/ML (5 ML VIAL) IV ONE (13:54)
[2021-02-14] MEDS ORDERED: SODIUM CHLORIDE 0.9% 500 ML 500 ML IV ONE (13:59)
--- NOTE | 2021-02-14 14:46 | P.OP ---
Date of Procedure: 02/14/21 Preoperative Diagnosis: Respiratory failure. Malnutrition Postoperative Diagnosis: Respiratory failure. Malnutrition Procedure(s) Performed: Tracheostomy and PEG Anesthesia: CYNTHIA Surgeon: Jacoby Funes Estimated Blood Loss (ml): 5 Pathology: none sent Condition: stable Disposition: PACU Description of Procedure: MThe patient's placed on the bed in the supine position. The patient received general anesthesia. The neck was prepped and draped in usual sterile fashion. A standard transverse skin incision was made approximately 2 cm above the sternal notch. Using electrocautery the subcutaneous tissues were divided. The platysma was divided. A Wheatlander retractor was placed in the wound. Next the strap muscles were divided in the midline. Another weatlander retractor was placed the wound. The pretracheal fat was then divided with left cautery. The trachea was exposed. At this point the [employer] advance the and the tracheal tube into the right mainstem bronchus. The balloon was inflated. A tracheotomy was then performed between the second and third tracheal rings. The perivascular tissues a gracilis the trachea. The endotracheal tube was brought back under direct vision. And then the #8 Portex tracheostomy tube was placed into the trachea. End-tidal CO2 was confirmed. The patient had been connected to the ventilator. The patient was ventilated satisfactory. The skin incision site was then closed with 3-0 nylon after the retractors were withdrawn. An umbilical tie was used to secure the tracheostomy tube. Next the gastroscope placed oropharynx passed in the esophagus and stomach. There is no evidence of any outlet obstruction. Stomach was insufflated with air. The light reflux seen the anterior abdominal wall. The abdomen was prepped and draped usual fashion. The skin was incised. And the needles placed and stomach under direct visualization. The needle was snared. And the wires placed through the needle and the wire was snared and brought the oropharynx. The PEG tube was placed over top the wire brought down to the stomach. The PEG tube was secured. At the 3 cm lorena. The one-piece bolster was used. Patient tolerated procedure well.
[2021-02-14] MEDS: HEPARIN SOD,PORK IN 0.45% NACL 25,000 UNIT in 0.45% NACL 1 250ML.BAG IV SCH (16:28)
--- NOTE | 2021-02-14 16:28 | PN ---
PROGRESS NOTE The patient is seen for followup for acute kidney injury and volume overload. He is currently hypernatremic. He has underlying COVID pneumonia. Renal function has improved. However, patient is significantly volume overloaded. He has received IV Lasix over the last couple of days. The patient is maintained on D5W and receiving free water down the feeding tube for the hypernatremia. He is scheduled for trach and PEG today. On examination, blood pressure this morning 128/57, heart rate of 50 per minute. Patient is afebrile. Case is discussed with nursing staff. The patient remains in significant volume overload. FiO2 is at 50%. He is maintained on D5W at 75 mL an hour. Levophed is currently off. The patient is not examined. LABS: Reviewed. Sodium 149, potassium 5.2, chloride 114, BUN 93, creatinine 0.96, hemoglobin 12.6 g/dL. ASSESSMENT: 1. Acute kidney injury, acute tubular necrosis associated with hypotension, currently improved. No nephrotoxic agents on board. Urine output is well maintained. 2. Hypernatremia, associated with free water deficit. Continue with the D5W and free water down the feeding tube. 3. Acute hypoxic respiratory failure currently on the vent secondary to COVID pneumonia. 4. COVID pneumonia. PLAN: Continue D5W, continue 200 mL q.4 hours of free water with the feeding. Repeat labs in a.m. Hopefully we can discontinue the D5W to avoid further volume overload. I will give him a dose of Lasix tomorrow. MMODL / IJN: [id number] /
[2021-02-14 18:19] LABS: Glucose,Whole Blood 208 mg/dL (75-99)
[2021-02-14] MEDS: ALBUTEROL HFA INHALER INHALATION PRN (19:02)
[2021-02-14 23:29] LABS: Glucose,Whole Blood 204 mg/dL (75-99)
[2021-02-15] MEDS: HEPARIN SOD,PORK IN 0.45% NACL 25,000 UNIT in 0.45% NACL 1 250ML.BAG IV SCH ×2 (02:28→13:28)
[2021-02-15] MEDS: ARTIFICIAL TEARS-HYPROMELLOSE DROPS 15 ML BTL BOTH EYES SCH ×6 (03:48→23:39)
[2021-02-15] MEDS: fentaNYL (PF). 1,000 MCG in SODIUM CHLORIDE 0.9% 80 ML IV SCH ×3 (03:49→17:34)
[2021-02-15 04:18] LABS: Basophils % (A) 0 %; Eosinophils % (A) 0 %; HCT 40.3 % (39.0-53.0); HGB 12.7 gm/dL (13.0-17.5); Lymphocytes # (A) 0.5 k/uL (1.0-4.8); Lymphocytes % (A) 3 %; MCHC 31.6 g/dL (31.0-37.0); MCV 101.1 fL (80.0-100.0); Macrocytosis Slight; Mean Platelet Volume 10.1; Monocytes # (A) 0.5 k/uL (0-1.0); Monocytes % (A) 4 %; Neutrophils # (A) 12.7 k/uL (1.3-7.7); Neutrophils % (A) 93 %; Platelet Count 135 k/uL (150-450); RBC 3.98 m/uL (4.30-5.90); RDW 13.7 % (11.5-15.5); WBC 13.7 k/uL (3.8-10.6)
[2021-02-15 04:28] LABS: ALT 129 U/L (4-49); AST 92 U/L (17-59); African American GFR (CKD) >90 (>60 ml/min/1.73 sqM); Albumin 2.6 g/dL (3.5-5.0); Alkaline Phosphatase 91 U/L (38-126); Anion Gap 6 mmol/L; Blood Urea Nitrogen 82 mg/dL (9-20); Calcium 8.8 mg/dL (8.4-10.2); Carbon Dioxide 29 mmol/L (22-30); Chloride 112 mmol/L (98-107); Glucose 195 mg/dL (74-99); Non-African American GFR(CKD) 80 (>60 ml/min/1.73 sqM); Sodium 147 mmol/L (137-145); Total Bilirubin 0.8 mg/dL (0.2-1.3); Total Protein 5.7 g/dL (6.3-8.2)
[2021-02-15 05:17] LABS: Glucose,Whole Blood 168 mg/dL (75-99)
[2021-02-15] MEDS: INSULIN ASPART (NovoLOG) 100 UNIT/ML VIAL SQ SCH ×4 (05:38→23:40)
[2021-02-15 05:56] LABS: ABG Base Excess 6.7 mmol/L; ABG HCO3 31 mmol/L (21-25); ABG Oxygen Saturation 97.8 % (94-97); ABG PCO2 48 mmHg (35-45); ABG PH 7.42 (7.35-7.45); ABG PO2 93 mmHg (83-108); ABG TCO2 33 mmol/L (19-24)
[2021-02-15 06:36] LABS: Allen Test Performed? No
--- NOTE | 2021-02-15 06:45 | XR ---
EXAMINATION TYPE: XR chest 1V portable DATE OF EXAM: 02/15/2021 COMPARISON: 02/14/2021 HISTORY: Shortness of breath TECHNIQUE: Single frontal view of the chest is obtained. FINDINGS: There is mild interstitial and scattered airspace opacities in the lung bases which are es sentially unchanged compared to previous. There is a right-sided central venous catheter the tip of which is in the SVC/R junction. There is a tracheostomy tube. The NG tube has been removed in the interval. The osseous structures are intact. The heart size is normal pulmonary vasculature is not congested. IMPRESSION: No change in the bibasilar airspace infiltrates and mild interstitial infiltrates..
[2021-02-15] MEDS: MIDODRINE 5 MG TAB PO SCH ×3 (07:06→16:05)
[2021-02-15] MEDS: ALBUTEROL HFA INHALER INHALATION PRN ×4 (07:23→19:46)
[2021-02-15] MEDS ORDERED: HEPARIN SODIUM 1,000 UN/ML (10ML VL) IV PRN (08:02)
[2021-02-15] MEDS: DEXAMETHASONE SOD PHOSPHATE 10 MG/ML 1 ML VIAL IVP SCH (08:05)
[2021-02-15] MEDS: CHLORHEXIDINE GLUCONATE 15 ML CUP MUCOUS MEM SCH ×2 (08:05→20:35)
[2021-02-15] MEDS: PANTOPRAZOLE 40 MG/10 ML VIAL IVP SCH (08:06)
[2021-02-15] MEDS ORDERED: FUROSEMIDE 10 MG/ML 2 ML VIAL IV ONE (08:30)
[2021-02-15] MEDS: NOREPINEPHRINE 4 MG in SODIUM CHLORIDE 0.9% 250 ML IV SCH ×2 (08:36→16:52)
[2021-02-15] MEDS: allopurinoL 300 MG TAB PO SCH ×2 (09:37→20:35)
[2021-02-15] MEDS: CHOLECALCIFEROL 25 MCG (1000 IU) TABLET PO SCH (09:38)
[2021-02-15] MEDS: ZINC SULFATE 220 MG CAP PO SCH (09:38)
[2021-02-15] MEDS: ASCORBIC ACID 500 MG TAB PO SCH (09:38)
[2021-02-15] MEDS: GABAPENTIN 400 MG CAP PO SCH ×2 (09:38→20:35)
--- NOTE | 2021-02-15 09:42 | P.PN ---
Subjective Patient is seen in follow-up for acute kidney injury. Renal function back to baseline. Sodium level 147 today. Receiving D5W. On low-dose Levophed. Nonoliguric. Vital signs are stable. HEENT: Tracheostomy noted.. HEART: Rate and Rhythm are regular. EXTREMITITES: Edema noted in the lower extremities. Exam discussed with the nurse. Objective - Vital Signs Vital signs: Vital Signs Temp 98.2 F 02/15/21 08:00 Pulse 56 L 02/15/21 09:00 Resp 30 H 02/15/21 09:00 BP 131/50 02/12/21 18:56 Pulse Ox 96 02/15/21 09:00 Intake & Output 02/14/21 02/15/21 02/15/21 18:59 06:59 18:59 Intake Total 2066.652 1428.423 99.623 Output Total 1725 1420 420 Balance 341.652 8.423 -320.377 Weight 157.9 kg 157.7 kg Intake: IV 1136 936 84 Dextrose 5% in Water 1, 900 900 75 000 ml @ 75 mls/hr IV . [id number] [facility] Rx#:[id number] presssure bag 36 36 9 Intake, IV Titration 887.652 492.423 15.623 Amount Heparin Sod,Pork in 0.45% 226.893 NaCl 25,000 unit In 0.45 % NaCl 1 250ml.bag @ 14. 375 UNITS/KG/HR 23 mls/hr IV .[id number] [facility] Rx#: [id number] Norepinephrine 4 mg In 165.559 44.869 15.623 Sodium Chloride 0.9% 250 ml @ 0.05 MCG/KG/MIN 31. 453 mls/hr IV .Q8H5M [facility] Rx#:[id number] fentaNYL (PF). 1,000 mcg 200 180.354 In Sodium Chloride 0.9% 80 ml @ 0.5 MCG/KG/HR 8. 255 mls/hr IV .Q12H7M [facility] Rx#:[id number] propofoL 1,000 mg In 295.2 267.2 Empty Bag 1 bag @ Titrate IV .Q0M [facility] Rx#: [id number] Tube Feeding 0 Lipid 3 Dextrose 5% in Water 1, 3 000 ml @ 75 mls/hr IV . [id number] [facility] Rx#:[id number] Other 40 Output: Urine 1720 1420 420 Estimated Blood Loss 5 Other: Voiding Method Indwelling Catheter Indwelling Catheter ABP, PAP, CO, CI - Last Documented Arterial Blood Pressure 125/51 - Labs CBC & Chem 7: 02/15/21 04:00 02/15/21 04:00 Labs: Abnormal Lab Results - Last 24 Hours (Table) 02/14/21 02/14/21 02/14/21 Range/Units 11:45 18:18 23:28 WBC (3.8-10.6) k/uL RBC (4.30-5.90) m/uL Hgb (13.0-17.5) gm/dL MCV (80.0-100.0) fL Plt Count (150-450) k/uL Neutrophils # (1.3-7.7) k/uL Lymphocytes # (1.0-4.8) k/uL ABG pCO2 (35-45) mmHg ABG HCO3 (21-25) mmol/L ABG Total CO2 (19-24) mmol/L ABG O2 Saturation (94-97) % Sodium (137-145) mmol/L Chloride (98-107) mmol/L BUN (9-20) mg/dL Glucose (74-99) mg/dL POC Glucose (mg/dL) 211 H 208 H 204 H (75-99) mg/dL AST (17-59) U/L ALT (4-49) U/L Total Protein (6.3-8.2) g/dL Albumin (3.5-5.0) g/dL 02/15/21 02/15/21 02/15/21 Range/Units 04:00 04:00 05:13 WBC 13.7 H (3.8-10.6) k/uL RBC 3.98 L (4.30-5.90) m/uL Hgb 12.7 L (13.0-17.5) gm/dL MCV 101.1 H (80.0-100.0) fL Plt Count 135 L (150-450) k/uL Neutrophils # 12.7 H (1.3-7.7) k/uL Lymphocytes # 0.5 L (1.0-4.8) k/uL ABG pCO2 (35-45) mmHg ABG HCO3 (21-25) mmol/L ABG Total CO2 (19-24) mmol/L ABG O2 Saturation (94-97) % Sodium 147 H (137-145) mmol/L Chloride 112 H (98-107) mmol/L BUN 82 H (9-20) mg/dL Glucose 195 H (74-99) mg/dL POC Glucose (mg/dL) 168 H (75-99) mg/dL AST 92 H (17-59) U/L ALT 129 H (4-49) U/L Total Protein 5.7 L (6.3-8.2) g/dL Albumin 2.6 L (3.5-5.0) g/dL 02/15/21 Range/Units 05:38 WBC (3.8-10.6) k/uL RBC (4.30-5.90) m/uL Hgb (13.0-17.5) gm/dL MCV (80.0-100.0) fL Plt Count (150-450) k/uL Neutrophils # (1.3-7.7) k/uL Lymphocytes # (1.0-4.8) k/uL ABG pCO2 48 H (35-45) mmHg ABG HCO3 31 H (21-25) mmol/L ABG Total CO2 33 H (19-24) mmol/L ABG O2 Saturation 97.8 H (94-97) % Sodium (137-145) mmol/L Chloride (98-107) mmol/L BUN (9-20) mg/dL Glucose (74-99) mg/dL POC Glucose (mg/dL) (75-99) mg/dL AST (17-59) U/L ALT (4-49) U/L Total Protein (6.3-8.2) g/dL Albumin (3.5-5.0) g/dL Assessment and Plan Plan: Assessment: 1. Acute kidney injury secondary to ATN secondary to septic shock. Improved. Creatinine 1.0 today. Nonoliguric. 2. Acute hypoxia respiratory failure secondary to COVID-19 pneumonia. 3. Hypernatremia from lack of oral water intake. 4. Lower extremity edema. Plan: Maintain D5W. Lasix 20 mg IV once today. Wean FiO2 and vasopressors.
--- NOTE | 2021-02-15 10:57 | P.PN ---
Subjective Progress Note Date: 02/15/21 Principal diagnosis: Coronavirus associated pneumonia. On 02/05/2021 patient seen in follow-up on selective care unit, patient is currently on BiPAP with FiO2 100%, he is very restless, he frequently removes the tubing, becomes more short of breath, he desaturates, he has required lorazepam 1 mg every 4 hours for anxiety. He is currently on Decadron 6 more gram daily, he is on empiric antibiotics in the form of ceftriaxone, he is on Coumadin, and his INR today is 4.8, the rest of his lab work is still pending for today. His urinalysis showed possibility of urinary tract infection, urine culture not show any growth. No fever or chills. His last chest x-ray was done 2 days ago showing diffuse residual coarsening and moderate patchy airspace opacities bilaterally. There is chronic elevation of the right hemidiaphragm. His last set of inflammatory markers was on 02/03/2021, but noted improvements in his inflammatory markers. Reevaluated today on 02/06/2021, patient was transferred to the ICU yesterday, mostly because his pulmonary status continued to deteriorate, patient remained hypoxic, continued to remove his BiPAP mask, transferred into the ICU, placed on Precedex initially, and kept him on BiPAP, however patient continued to saturate, and I was notified about the nurses that his clinical status is getting worse, recommended immediate intubation and mechanical ventilation. Patient is now intubated, mechanically ventilated. He is on assist control rate of 30 tidal volume 450 FiO2 60% and PEEP of 14. ABG showed a pO2 of 86 pCO2 of 52 pH of 7.36, patient remains on multiple drips including propofol at 40 mcg/kg/m, fentanyl 1 mcg/kg/h Nimbex 1.5 mcg/kg/m. Patient is also requiring norepinephrine at 0.1 mcg/kg/m. LDH today is extremely high over 3000. WBC count is elevated at 20.7 hemoglobin 15.7 his electrolytes are normal however his renal profile showed a BUN of 77 creatinine 1.47 chest x-ray showed patchy bilateral infiltrates, slight improvement compared to chest x-ray prior to intubation. His INR today is 5.8, hence I plan to reverse his INR are at least give him fresh frozen plasma and vitamin K in order to safely place a central line and arterial line in this patient. Reevaluated today on 02/07/2021, patient remains in the ICU, intubated and mechanically ventilated. He is on assist control rate of 30 tidal volume 450 Fi O2 50% and PEEP of 14. ABG showed a pO2 of 75 pCO2 48 pH of 7.40. Chest x-ray continues to show bilateral infiltrates with a right lower lobe consolidation. No changes were made in his ventilator settings today. Agent remains on multiple drips including propofol at 40 mcg/kg/m, fentanyl at 20 mcg/kg/h Nimbex at 2 mcg/minute, norepinephrine at 0.03 mcg/kg/m, IV fluid saline at 75 mL/h he is also on enteral feedings. LDH is improving down to 1966 CRP is 9 about the same. Electrolytes are about the same but BUN is 74 creatinine is 1.35. Again chest x-ray showed no major change since admission. Education list was reviewed, patient is on allopurinol, ascorbic acid, Rocephin, vitamin D, De cadron 6 mg IV push daily, Neurontin 1600 mg twice a day, lisinopril, insulin, lorazepam, patient is on Protonix 40 mg IV push daily, Coumadin 2 mg daily. And the patient is on zinc Reevaluated today on 02/08/2021, remains in the ICU, intubated and mechanically ventilated. Patient is on assist control rate of 30 tidal volume 450 FiO2 50% PEEP is 14. ABG showed a pO2 of 73 pCO2 46 pH of 7.40 hence no changes were made in his present ventilator settings. Chest x-ray continues to show not much of a significant change, bilateral infiltrates persist. Patient is on fentanyl at 1 mcg/kg/h, propofol at 40 mcg/kg/minute, Nimbex at 2 mcg/kg/m, norepinephrine at 0.02 mcg/kg/m. Patient is on vital AF rate 45 per hour. WBC count today 16.6 hemoglobin 14 INR 1.5 patient is on Coumadin for history of DVT. Sodium 145 potassium 4.4 chloride 111 bicarb 28 BUN is 74 creatinine is 1.22. Remains on vitamin C, Rocephin, vitamin D, Decadron 6 mg IV push daily, Neurontin, lisinopril, Protonix, Coumadin 2 mg daily and is also on zinc. Reevaluated today on 02/09/2021, patient remains in the ICU intubated and mechanically ventilated. He is on assist control rate of 30 tidal volume 450 FiO2 50% PEEP is 14. His ABG showed a pO2 of 96 pCO2 48 pH of 7.37, hence I recommended decreasing the PEEP down to 12. Patient is on multiple drips including fentanyl at 1 mcg/kg/h propofol at 40 mcg/kg/m Nimbex at 1.5 mcg/kg/m norepinephrine at 0.01 mcg/kg/m is also on enteral feeding in the form of vital AF 3 5 mL per hour. His labs showed relatively normal electrolytes except for slightly elevated sodium hence his IV fluid was changed to D545 at 50 mL per hour. Patient had relatively normal electrolytes otherwise except for the sodium being 146. His BUN is 76 creatinine is 1.24 slightly higher hence we'll increase his IV fluid today. Chest x-ray continues to show bilateral infiltrates, chest x-ray is not much different from his baseline. There may be a slight improvement in his right lower lobe consolidation. Endotracheal tube had to be advanced about to see and distally. Medications list was reviewed, patient is on allopurinol, albuterol, vitamin C, Rocephin, Peridex, vitamin D, Flexeril, Decadron 6 mg IV push daily, gabapentin, insulin as per scale, lisinopril with hydrochlorothiazide, Reglan when necessary, Protonix 40 mg IV push daily, and zinc. Progress note dated 02/10/2021. This is a 60-year-old male seen in the intensive care unit, room 250. He was admitted to the hospital on February 02, he moved to the intensive care unit on February 05. He was intubated on February 05, for refractory hypoxemia secondary to coronavirus associated pneumonia. He remains on the mechanical ventilator, on the volume assist control mode, rate 30, tidal volume 450, FiO2 50%, and PEEP of 12. Blood gases show pO2 72, pCO2 of 49, and a pH is 7.35. The patient remains on Nimbex at 1.5 mcg/kg/m, D5.45 at 75 mL an hour, propofol at 40 mcg/kg/m, and fentanyl 1 mcg/kg/h. The patient's also on a small dose of norepinephrine at 0.006 mcg/kg/m, and receiving vital AF 1.2 at 45 mL an hour. The patient's IV will be discontinued. We'll add some Lasix to his regimen. We will DC his ceftriaxone. White count 9.6, hemoglobin 13.3, hematocrit 42.4, and platelet count 94,000. PT 15.5 with an INR 1.5. Sodium 145, potassium 4.9, chlorides 114, CO2 25, anion gap 6, BUN 88, creatinine 1.16, with an albumin of 2.4. Chest x-ray shows diffuse bilateral infiltrates. Progress note dated 02/11/2021. 60-year-old male, seen in room 250. He was admitted to the hospital on February 02, moved to the intensive care unit on the , and intubated on February 05 for refractory hypoxemic respiratory failure, secondary to coronavirus associated pneumonia. The patient remains on the mechanical ventilator. He is on the volume assist control mode, rate 30, tidal volume 450, FiO2 50%, PEEP of 12. Blood gases show a pO2 of 64, pCO2 of 51, pH is 7.35. The patient's on dextrose and half-normal saline at 20 mL an hour, propofol at 40 mcg/kg/m, fentanyl at 1 mcg/kg/h, norepinephrine at 5 mcg/m, and vital AF, 1.2, and 36 mL an hour, which is goal. The patient's renal function has declined, and will have nephrology see the patient in consultation. Currently, white count of 16, hemoglobin 13.9, hematocrit 43.6, and platelet count 109,000. Sodium 145, potassium 5, chlorides 112, CO2 27, anion gap 6, BUN 106, creatinine 1.26. Calcium is 8.0. Chest x-ray shows diffuse bilateral infiltrates, largely unchanged, consistent with coronavirus associated pneumonia. Progress note dated 02/12/2021. 60-year-old male, again seen in room 250. The patient was admitted to the hospital on February 02, and moved to the intensive care unit on February 05. The patient was intubated on February 05 for refractory hypoxemic respiratory failure, secondary to coronavirus associated pneumonia. The patient remains ventilated. He is on the volume assist control mode, rate 30, tidal volume 450, FiO2 70%, and PEEP of 12. Blood gases show pO2 of 69, pCO2 56, and a pH is 7.32. The patient is on propofol for at 40 mcg/kg/m, fentanyl at 1 mcg/kg/h, norepinephrine at 0.03 mcg/kg/m, D5.45 at 20 mL an hour, and vital AF at 35 mL an hour, which is goal. We did a Doppler of the lower extremities. It was positive for DVT. An attempt to wean the FiO2. Surgery was consulted for a possible tracheostomy and PEG tube placement. The patient be started on IV heparin, and Coumadin will be discontinued. White count 19.6, hemoglobin 13.8, hematocrit 43.6, platelet count 92,000. PT 13.4, INR 1.3. Sodium 146, potassium 5.4, chlorides 112, CO2 29, anion gap 5, BUN 100, creatinine 1.23. Calcium 8.3. Microbiology is currently negative. Chest x-ray shows diffuse bilateral infiltrates, unchanged. Dopplers of the legs, show a DVT, bilaterally. Progress note dated 02/13/2021. 60-year-old male, again seen in room 250. He was admitted to the hospital on 02/02/2021, and moved to the intensive care unit on 02/05/2021. The patient was intubated on the same day, or coronavirus associated pneumonia, and hypoxemic respiratory failure. The patient remains on the mechanical ventilator. He is on the volume assist control mode, rate 30, tidal volume 450, FiO2 50%, and PEEP of 12. Blood gases show pO2 of 81, pCO2 of 54, and a pH is 7.36. The patient's on propofol at 30 mcg/kg/m, fentanyl at 1 mcg/kg/h, norepinephrine at 0.02 mcg/kg/m, heparin via weightbase protocol, and D5.45 at 20 mL an hour. In addition, the patient's getting tube feeds at 38 mL an hour, which is goal. The patient is apparently scheduled to have a tracheostomy and PEG tube placement on Wednesday by surgery. Dopplers of the lower extremities yesterday revealed bilateral extremity DVTs. White count 13.1, hemoglobin 12.9, hematocrit 40.9, platelet count 112,000. PTT was 113.5. Sodium 149, potassium 5.2, chlorides 1:15, CO2 30, anion gap 4, BUN 93, and creatinine 1.18. Chest x-ray shows diffuse bilateral infiltrates consistent with coronavirus associated pneumonia. Progress note dated 02/14/2021. 60-year-old male, again seen in room 250. He was admitted to the hospital on 02/02/2021, and moved to the intensive care unit on 02/05/2021. The patient was intubated on the same day, for, coronavirus associated pneumonia and hypoxemic respiratory failure. The patient is to have a tracheostomy and PEG tube placed today by surgery. The patient remains on the volume assist control mode, rate 30, tidal volume 450, FiO2 50%, and PEEP of 12. Gases show pO2 of 83, pCO2 of 51, and a pH is 7.41. The patient remains on fentanyl at 1 mcg/kg/h, propofol at 25 mcg/kg/m, norepinephrine is on hold. Heparin was on hold. He is getting D5W at 75 mL an hour, and tube feeds are currently on hold. White count is 10.8, hemoglobin 12.6, hematocrit 40.4, and platelet count 138,000. Sodium 149, potassium 5.2, chlorides 114, CO2 29, anion gap 6, BUN 93, with a creatinine 0.96. Chest x-ray continues to show diffuse bilateral infiltrates consistent with coronavirus pneumonia. This note dated 02/15/2021. 60-year-old male, again seen in room 250. Yesterday, the patient underwent a tracheostomy. The patient remains on the ventilator. He is on the volume assist control mode, rate 30, tidal volume 450, FiO2 50%, and PEEP of 12. Arterial blood gases show pO2 of 93, pCO2 48, and a pH is 7.42. The patient's currently on fentanyl 1 mcg/kg/h, propofol at 25 mcg/kg/m, norepinephrine at 0.01 mcg/kg/m, and D5W at 75 mL an hour. Heparin will be restarted because of the bilateral lower extremity DVTs. Unfortunately, the NG tube could not be inserted. I've asked the nurse to try again today. He may need TPN. White count 13.7, hemoglobin 12.7, hematocrit 40.3, and platelet count 135,000. Sodium 147, potassium 5, chlorides 112, CO2 29, anion gap 6, BUN 82, with a creatinine of 1. Albumin is 2.6. Chest x-rays shows a midline tracheostomy tube, and diffuse bilateral infiltrates, which are largely unchanged. Objective - Vital Signs Vital signs: Vital Signs Temp 98.2 F 02/15/21 08:00 Pulse 53 L 02/15/21 10:00 Resp 30 H 02/15/21 10:00 BP 131/50 02/12/21 18:56 Pulse Ox 96 02/15/21 10:00 Intake & Output 02/14/21 02/15/21 02/15/21 18:59 06:59 18:59 Intake Total 2066.652 1428.423 299.023 Output Total 1725 1420 770 Balance 341.652 8.423 -470.977 Weight 157.9 kg 157.7 kg Intake: IV 1136 936 87 Dextrose 5% in Water 1, 900 900 75 000 ml @ 75 mls/hr IV . [id number] [facility] Rx#:[id number] presssure bag 36 36 12 Intake, IV Titration 887.652 492.423 212.023 Amount Heparin Sod,Pork in 0.45% 226.893 NaCl 25,000 unit In 0.45 % NaCl 1 250ml.bag @ 14. 375 UNITS/KG/HR 23 mls/hr IV .[id number] [facility] Rx#: [id number] Norepinephrine 4 mg In 165.559 44.869 15.623 Sodium Chloride 0.9% 250 ml @ 0.05 MCG/KG/MIN 31. 453 mls/hr IV .Q8H5M [facility] Rx#:[id number] fentaNYL (PF). 1,000 mcg 200 180.354 100 In Sodium Chloride 0.9% 80 ml @ 0.5 MCG/KG/HR 8. 255 mls/hr IV .Q12H7M [facility] Rx#:[id number] propofoL 1,000 mg In 295.2 267.2 96.4 Empty Bag 1 bag @ Titrate IV .Q0M [facility] Rx#: [id number] Tube Feeding 0 Lipid 3 Dextrose 5% in Water 1, 3 000 ml @ 75 mls/hr IV . [id number] [facility] Rx#:[id number] Other 40 Output: Urine 1720 1420 770 Estimated Blood Loss 5 Other: Voiding Method Indwelling Catheter Indwelling Catheter ABP, PAP, CO, CI - Last Documented Arterial Blood Pressure 130/53 - Exam No acute distress, sedated, with a midline tracheostomy tube. Saturations are 96%. HEENT examination is grossly unremarkable. Neck supple. Full range of motion. No adenopathy thyromegaly or neck vein distention. Cardiovascular examination reveals regular rhythm rate. S1-S2 normal. No S3 or S4. No discernible murmur noted. Heart rate is 53 bpm. Heart sounds are diminished. Lungs reveal coarse bilateral rhonchi. No wheezes or crackles. Breath sounds are equal bilaterally. Saturations are 96%. Abdomen soft bowel sounds are heard. No masses or tenderness. Extremities reveal chronic venous stasis changes, and bilateral lateral lower extremity edema. No cyanosis or clubbing. Skin is without rash or lesion. Neurologic examination cannot be adequately assessed as the patient's currently sedated. - Labs CBC & Chem 7: 02/15/21 04:00 02/15/21 04:00 Labs: Abnormal Lab Results - Last 24 Hours (Table) 02/14/21 02/14/21 02/14/21 Range/Units 11:45 18:18 23:28 WBC (3.8-10.6) k/uL RBC (4.30-5.90) m/uL Hgb (13.0-17.5) gm/dL MCV (80.0-100.0) fL Plt Count (150-450) k/uL Neutrophils # (1.3-7.7) k/uL Lymphocytes # (1.0-4.8) k/uL ABG pCO2 (35-45) mmHg ABG HCO3 (21-25) mmol/L ABG Total CO2 (19-24) mmol/L ABG O2 Saturation (94-97) % Sodium (137-145) mmol/L Chloride (98-107) mmol/L BUN (9-20) mg/dL Glucose (74-99) mg/dL POC Glucose (mg/dL) 211 H 208 H 204 H (75-99) mg/dL AST (17-59) U/L ALT (4-49) U/L Total Protein (6.3-8.2) g/dL Albumin (3.5-5.0) g/dL 02/15/21 02/15/21 02/15/21 Range/Units 04:00 04:00 05:13 WBC 13.7 H (3.8-10.6) k/uL RBC 3.98 L (4.30-5.90) m/uL Hgb 12.7 L (13.0-17.5) gm/dL MCV 101.1 H (80.0-100.0) fL Plt Count 135 L (150-450) k/uL Neutrophils # 12.7 H (1.3-7.7) k/uL Lymphocytes # 0.5 L (1.0-4.8) k/uL ABG pCO2 (35-45) mmHg ABG HCO3 (21-25) mmol/L ABG Total CO2 (19-24) mmol/L ABG O2 Saturation (94-97) % Sodium 147 H (137-145) mmol/L Chloride 112 H (98-107) mmol/L BUN 82 H (9-20) mg/dL Glucose 195 H (74-99) mg/dL POC Glucose (mg/dL) 168 H (75-99) mg/dL AST 92 H (17-59) U/L ALT 129 H (4-49) U/L Total Protein 5.7 L (6.3-8.2) g/dL Albumin 2.6 L (3.5-5.0) g/dL 02/15/21 Range/Units 05:38 WBC (3.8-10.6) k/uL RBC (4.30-5.90) m/uL Hgb (13.0-17.5) gm/dL MCV (80.0-100.0) fL Plt Count (150-450) k/uL Neutrophils # (1.3-7.7) k/uL Lymphocytes # (1.0-4.8) k/uL ABG pCO2 48 H (35-45) mmHg ABG HCO3 31 H (21-25) mmol/L ABG Total CO2 33 H (19-24) mmol/L ABG O2 Saturation 97.8 H (94-97) % Sodium (137-145) mmol/L Chloride (98-107) mmol/L BUN (9-20) mg/dL Glucose (74-99) mg/dL POC Glucose (mg/dL) (75-99) mg/dL AST (17-59) U/L ALT (4-49) U/L Total Protein (6.3-8.2) g/dL Albumin (3.5-5.0) g/dL Assessment and Plan Assessment: Acute hypoxemic respiratory failure secondary to coronavirus associated pneumonia, status post intubation and mechanical ventilation on 02/05/2021. Status post tracheostomy on 02/14/2021. PEG tube could not be inserted. Acute kidney injury. Bilateral lower extremity DVT, diagnosed on 02/12/2021. Previous history of DVT. Obesity. Chronic back pain. History of COPD/asthma. Prior history of pancreatitis. History of essential hypertension. Acute urinary tract infection. Plan: Plan dated 02/10/2021. The patient is way ahead on fluids, hence, his fluids to be cut back. We will make them KVO. The patient will be given a dose of IV Lasix. We'll DC the ceftriaxone at this time. We continue with enteral feedings and nutritional support, and vitamin cocktail, as well as Decadron, and blood thinner. Additional recommendations and suggestions are forthcoming. Prognosis is guarded. The patient is still on 50% PEEP of 12. He's been intubated since the eighth. He may require tracheostomy and PEG tube placement should he not show improvement. Plan dated 02/11/2021. Will have nephrology see the patient. The patient was weaned off the Nimbex. He remains on fentanyl, fall, and norepinephrine. The patient is receiving nutrition at goal. Blood gases are reasonable. He is on 50% PEEP of 12. We will continue to follow make recommendations where appropriate. The patient continues on Decadron and blood thinner. Additional recommendations and suggestions are forthcoming. Prognosis is guarded. Plan dated 02/12/2021. Dopplers of the lower extremities reveal bilateral DVT. The patient's Coumadin will be discontinued. The patient be started on IV heparin. In addition, it appears likely the patient will need a tracheostomy and PEG tube. Surgery is consulted. We will attempt to wean the FiO2. The patient remains on propofol, and fentanyl, and a small amount of norepinephrine. Overall prognosis remains very guarded. We will continue to follow make recommendations where carlos ropriate. Labs, x-rays, and all medications are reviewed. Plan dated 02/13/2021. We will change patient's IV fluids to D5W at KVO. The patient is mildly hyponatremic. We can increase water flushes as well. The patient is scheduled to have a tracheostomy and PEG tube placement tomorrow. The patient's on IV heparin right now because of bilateral lower extremity DVTs. The patient's overall prognosis remains guarded. The patient remains on propofol, fentanyl, and norepinephrine. We will continue to follow make recommendations were appropriate. The rest of the medications are reviewed. Chest x-ray, and labs are also reviewed. Plan dated 02/14/2021. The patient remains on the mechanical ventilator. The patient will hopefully have a tracheostomy and PEG tube placement today. The patient remains on fentanyl and propofol. Norepinephrine is currently on hold. IV heparin is currently on hold for the surgery. The patient remains on D5W at 75 mL an hour. The patient's blood gases are reasonable. Chest x-rays unchanged. Medications are extensively reviewed. We will continue to follow make recommendations where appropriate. Prognosis is guarded. Plan dated 02/15/2021. The patient remains on the mechanical ventilator. The patient underwent tracheostomy tube placement on February 14. The nurses could not reinsert the NG tube. We will try later today. The patient remains on fentanyl, propofol, and norepinephrine. The patient's heparin will be restarted. We will continue to follow make recommendations where appropriate. Prognosis is guarded. The patient will have a morning chest x-ray, CBC, basic metabolic profile, and blood gas. Time with Patient: Greater than 30
[2021-02-15 11:33] LABS: Glucose,Whole Blood 180 mg/dL (75-99)
[2021-02-15 12:49] LABS: Magnesium 2.3 mg/dL (1.6-2.3); Phosphorus 4.2 mg/dL (2.5-4.5)
[2021-02-15] MEDS: DEXTROSE 5% IN WATER 1,000 ML IV SCH (13:28)
[2021-02-15] MEDS: 1: MVI, ADULT NO.4 WITH VIT K 10 ML, TRACE (CONC-1ML/DOSE) 1 ML in AMINO ACID 5%-D15W+LY IV SCH ×3 (14:16)
[2021-02-15 17:20] LABS: Glucose,Whole Blood 198 mg/dL (75-99)
--- NOTE | 2021-02-15 21:22 | P.PN ---
Subjective Patient is 60-year-old male with a known history of asthma/COPD, history of DVT, chronic low back pain, osteoarthritis and morbid obesity with BMI 46.7 presents to ER with complaints of generalized weakness and fatigue and worsening shortness of breath and exertional dyspnea. Patient states that he has been having symptoms for the past 5-6 days and his and other family members were also tested positive for covid 19 infection. Patient has been having generalized weakness and fatigue. No complaints of chest pain. Does have cough without any sputum production. No nausea vomiting or abdominal pain or diarrhea. Chest x-ray showed diffuse residual coarsening and moderate patchy airspace opacities bilaterally. Findings may represent Covid 19 pneumonia. EKG showed normal sinus rhythm Laboratory data showed WBC 7.6 hemoglobin 10.9 and platelets 167 lymphocytes 0.4 INR 1.9 and d-dimer is 1.16 Sodium 126 potassium 4.8 chloride 89 BUN 6 T5 and creatinine 1.85 calcium 7.9 AST 219 ALT 55 alk phos 63 ALT is 2347 and CRP 24.0 Procalcitonin 0.69, Covid 19 PCR detected. Patient is not vaccinated. 02/03/2021 Patient is currently in the emergency room awaiting for self care unit transfer. Patient is currently on BiPAP 16 x 6 with 100% FiO2. Patient is still having shortness of breath and he appears to be in mild distress and unable to tolerate BiPAP. Otherwise patient has been afebrile. Currently being continued on dexamethasone, warfarin dosing and multivitamins. Patient was started on ceftriaxone for possible urinary tract infection. Laboratory data showed sodium 128 potassium 4.3 chloride 91 BUN 60 and creatinine 1.8 LDH 893 and CRP 21.9 No complaints of chest pain. Patient is awake alert and oriented 3. Pulmonary is on board. 02/04/2021 Patient remains in the emergency department. Currently on BiPAP with 100% FiO2. Patient is saturating mid 80s. Sitting up in the bed. Still tachypneic and anxious. Awake alert and oriented. Laboratory showed WBC 11.2 hemoglobin 15.7 and platelets 202 lymphocytes 0.4 Sodium 131 potassium 4.3 chloride 94 bicarb is 28 BUN 75 creatinine 1.42. Urine culture is pending. Patient is being current on ceftriaxone. Patient is being continued on dexamethasone, Coumadin and multivitamins. Pulmonary is following. 02/05/2021 Patient is on BiPAP with FiO2 100%. Patient is restless and tachypneic. Pulling out tubes. Oxygen saturations around 82% to 90% while on BiPAP. Patient has been afebrile. Currently being continued on dexamethasone and Coumadin dosing. INR is 4.8 toda y. Laboratory data showed WBC 16.1 hemoglobin 16.1 platelets 170 BUN 77 creatinine 1.16 and troponin 0 0.042. Patient is also being current ceftriaxone for acute urinary tract infection. Urine culture showed no growth. Pulmonary is following. Patient does not want to get intubated. 02/06/2021 Patient was transferred to MICU. Intubated and on mechanical ventilator. Patient is sedated and multiple drips including propofol, fentanyl and Nimbex. Patient is also requiring norepinephrine. Laboratory showed WBC 20.7 hemoglobin 15.7 platelets 173 INR 5.8 Sodium 138 potassium 4.6 BUN 77 creatinine 1.43 LDH 3075 and CRP 15.1 AST 262 ALT 93 alk phos 94 and blood sugar is 188. Patient is being continued ceftriaxone, dexamethasone IV and Coumadin on hold. Patient is also on IV hydration with normal saline at 75 cc/h. Chest x-ray showed patchy infiltrates throughout both lung griffiths no change. Correlate clinically and follow-up and resolution is recommended. 02/07/2021 Patient is seen and evaluated and follow-up continues to be closely monitored in the ICU with pulmonary floor layer tile following closely. Patient remains on sedation with propofol and fentanyl and is also continued on Nimbex and currently attempting to wean norepinephrine. Patient also continues on IV ceftriaxone for the possibility of a UTI although urine culture show no growth for 18 hours and will repeat pro calcitonin and consider discontinuing IV antibiotics. Patient also continues on vitamin and zinc along with Lovenox and IV dexamethasone and will continue. Pulmonary floor layer tile following and patient continues to be on mechanical vent and FiO2 is at 50% with a PEEP of 14 and per nursing staff no attempts at weaning today. Chest x-ray was done and pending. Inflammatory markers continue to be elevated although trending down. 02/08/2021 This is a pleasant 60 years old male with multiple medical problems was admitted for respiratory distress secondary to bilateral Covid pneumonia and acute hypoxic respiratory failure and on the top of that bacterial superinfection is suspected with his procalcitonin elevated at 0.6 and 0.43 and patient was placed on ceftriaxone currently. Cystoscopy the ICU monitor closely and followed by pulmonary/critical care team. Labs showing leukocytosis of 16.6 while his steroids. D-dimer 1.5, LDH elevated 1965, CRP 9.0. Mildly elevated liver enzymes. He is also on warfarin with INR is subtherapeutic at 1.5. Creatinine is trending down to 1.4 down to 1.2 however patient looks like he has chronic kidney disease stage III. Currently covered with vitamin C, vitamin D, zinc, dexamethasone, ceftriaxone, normal saline 75 mL/h, warfarin and Protonix 02/09/2021 The patient remains in the ICU sedated and intubated on mechanical ventilation with pulmonary/critical care team following him closely. Patient remains clinically the same is still tachypneic he still on critical condition. WBC slightly better 13.6, liver enzymes mildly elevated, INR is 1.6 and today he will receive 3 mg of iodine. Sodium slightly elevated 146 and his IV fluid was changed to D5 half-normal saline. He remains on ceftriaxone, dexamethasone, multiple vitamins and warfarin 02/10/2021 Patient remains in critical condition needing intubation and sedation with pulmonary/critical care team following him closely and help with vent management. Distal significantly tachypneic. jesus stable, WBC is normal today 9.6. Creatinine 1.1. INR was 1.6 yesterday and 1.5 today and her receiving 3 mg today. Still on steroids, vitamins, also he received 1 time dose of Lasix while his ceftriaxone and D5 half-normal saline at 75Milliliters per hour both are discontinued 02/11/2021 Patient is in the ICU status post intubation. He is on mechanical ventilation with pulmonary/critical care team on the case. He still tachypneic with FiO2 of 70%. Labs showing leukocytosis 16 K, INR actually is trending down 1.4 and received 6 mg of warfarin today. Creatinine within baseline of 1.26. Sodium is stable at 145. His hydrochlorothiazide/lisinopril was discontinued for borderline blood pres sure on midodrine started. Remains on dexamethasone, vitamin C, D and zinc. 02/12/2021 patient remains in the ICU intubated and sedated with no much progress in his clinical condition despite optical medical treatment and prolonged hospitalization with pulmonary/critical care team following him closely. Today surgery team were consulted for PEG tube and tracheostomy placement on 02/14 Also he has bilateral DVT while his on warfarin, patient was started on heparin drip. He remains on dexamethasone, multiple vitamins. 02/13/2021 Patient is in the ICU status post intubation and mechanical ventilation with pulmonary/critical care team followed closely. Patient does not make much progress and pulmonary team recommendation PEG tube and tracheostomy placement on the consulted surgery with planned to do the procedure tomorrow. I called the spouse Mrs. Mervat morgan At [phone] and I discussed the case with her including the plan for tracheostomy and PEG tube placement by surgery team tomorrow and all her questions were answered to her satisfaction. Please there is no consent obtained by medical team for this procedure and this has been deferred to surgery team Abdomen the patient is tachypneic hypoxic, leukocytosis of 13 K which is slightly improving Also patient is on heparin drip for newly diagnosed bilateral DVT He is also on dexamethasone, vitamin C, D and zinc. 02/14/2021 Patient with no significant improvement she underwent tracheostomy and PEG tube placement by surgery team Other than that she remains on mechanical ventilation Objective - Vital Signs Vital signs: Vital Signs Temp 98.3 F 02/14/21 12:00 Pulse 63 02/14/21 14:00 Resp 30 H 02/14/21 14:00 BP 131/50 02/12/21 18:56 Pulse Ox 98 02/14/21 14:00 Intake & Output 02/13/21 02/14/21 02/14/21 18:59 06:59 18:59 Intake Total 2357.606 0718.527 4698.727 Output Total 2170 1900 1095 Balance 187.606 -38.613 413.727 Weight 157.9 kg 157.9 kg Intake: IV 826 936 824 Dextrose 5% in Water 1, 750 900 600 000 ml @ 75 mls/hr IV . [id number] ONE Rx#:[id number] Dextrose 5%-0.45% NaCl 1, 40 000 ml @ 20 mls/hr IV . Q24H [facility] Rx#:[id number] presssure bag 36 36 24 Intake, IV Titration 537.606 535.387 641.727 Amount Heparin Sod,Pork in 0.45% 235.387 226.893 NaCl 25,000 unit In 0.45 % NaCl 1 250ml.bag @ 14. 375 UNITS/KG/HR 23 mls/hr IV .[id number] [facility] Rx#: [id number] Norepinephrine 4 mg In 82.406 119.634 Sodium Chloride 0.9% 250 ml @ 0.05 MCG/KG/MIN 31. 453 mls/hr IV .Q8H5M [facility] Rx#:[id number] fentaNYL (PF). 1,000 mcg 200 100 100 In Sodium Chloride 0.9% 80 ml @ 0.5 MCG/KG/HR 8. 255 mls/hr IV .Q12H7M [facility] Rx#:[id number] propofoL 1,000 mg In 255.2 200 195.2 Empty Bag 1 bag @ Titrate IV .Q0M [facility] Rx#: [id number] Tube Feeding 494 190 0 Lipid 3 Dextrose 5% in Water 1, 3 000 ml @ 75 mls/hr IV . [id number] [facility] Rx#:[id number] Other 500 200 40 Output: Urine 2170 1900 1090 Estimated Blood Loss 5 Other: Voiding Method Indwelling Catheter Indwelling Catheter Indwelling Catheter ABP, PAP, CO, CI - Last Documented Arterial Blood Pressure 161/66 - Exam -GENERAL: The patient is intubated and sedated HEENT: Pupils are round and equally reacting to light. EOMI. No scleral icterus. No conjunctival pallor. Normocephalic, atraumatic. No pharyngeal erythema. No thyromegaly. CARDIOVASCULAR: S1 and S2 present. No murmurs, rubs, or gallops. -PULMONARY: Chest is clear to auscultation, no wheezing . bilateral crepitation Abdomen: soft, nontender, nondistended, normoactive bowel sounds. No palpable organomegaly. MUSCULOSKELETAL: No joint swelling or deformity. EXTREMITIES: No cyanosis, clubbing, or pedal edema. NEUROLOGICAL: Gross neurological examination did not reveal any focal deficits. SKIN: No rashes. no petechiae. - Labs CBC & Chem 7: 02/15/21 04:00 02/15/21 04:00 Labs: Abnormal Lab Results - Last 24 Hours (Table) 02/13/21 02/13/21 02/13/21 Range/Units 16:55 17:15 23:08 WBC (3.8-10.6) k/uL RBC (4.30-5.90) m/uL Hgb (13.0-17.5) gm/dL MCV (80.0-100.0) fL Plt Count (150-450) k/uL PT (9.0-12.0) sec INR (<1.2) APTT (22.0-30.0) sec ABG pCO2 (35-45) mmHg ABG HCO3 (21-25) mmol/L ABG Total CO2 (19-24) mmol/L Sodium 148 H (137-145) mmol/L Potassium (3.5-5.1) mmol/L Chloride (98-107) mmol/L BUN (9-20) mg/dL Glucose (74-99) mg/dL POC Glucose (mg/dL) 214 H 200 H (75-99) mg/dL 02/14/21 02/14/21 02/14/21 Range/Units 04:00 04:00 04:00 WBC 10.8 H (3.8-10.6) k/uL RBC 3.95 L (4.30-5.90) m/uL Hgb 12.6 L (13.0-17.5) gm/dL MCV 102.3 H (80.0-100.0) fL Plt Count 138 L (150-450) k/uL PT 12.2 H (9.0-12.0) sec INR 1.2 H (<1.2) APTT 64.8 H (22.0-30.0) sec ABG pCO2 (35-45) mmHg ABG HCO3 (21-25) mmol/L ABG Total CO2 (19-24) mmol/L Sodium 149 H (137-145) mmol/L Potassium 5.2 H (3.5-5.1) mmol/L Chloride 114 H (98-107) mmol/L BUN 93 H (9-20) mg/dL Glucose 216 H (74-99) mg/dL POC Glucose (mg/dL) (75-99) mg/dL 02/14/21 02/14/21 02/14/21 Range/Units 05:41 06:22 11:45 WBC (3.8-10.6) k/uL RBC (4.30-5.90) m/uL Hgb (13.0-17.5) gm/dL MCV (80.0-100.0) fL Plt Count (150-450) k/uL PT (9.0-12.0) sec INR (<1.2) APTT (22.0-30.0) sec ABG pCO2 51 H (35-45) mmHg ABG HCO3 32 H (21-25) mmol/L ABG Total CO2 34 H (19-24) mmol/L Sodium (137-145) mmol/L Potassium (3.5-5.1) mmol/L Chloride (98-107) mmol/L BUN (9-20) mg/dL Glucose (74-99) mg/dL POC Glucose (mg/dL) 183 H 211 H (75-99) mg/dL Assessment and Plan Assessment: Bilateral Covid pneumonia Acute hypoxic respiratory failure Increased inflammatory markers Chronic kidney disease, stage III Acute UTI, finished treatment history of DVT currently on anticoagulation with Coumadin. Morbid obesity with BMI 46.7 Chronic low back pain COPD/asthma Osteoarthritis Plan: This is a pleasant 60 years old male who presents with Bilateral Covid pneumonia and hypoxia Continue with vitamin C, vitamin D, and zinc. Continue with dexamethasone Pulmonary team consult Continue with mechanical ventilation for critical care team. Patient is scheduled for tracheostomy and PEG tube placement on 02/14 with suture deep by surgery team Heparin drip Labs and medication were reviewed.. Continue same treatment. Continue with symptomatic treatment. Resume home medication. Monitor lytes and vitals. DVT and GI prophylaxis. Further recommendations as per clinical course of the patient DVT prophylaxis: warfarin/Heparin drip GI Prophylaxis: Ppi Prognosis is guarded
--- NOTE | 2021-02-15 21:50 | P.PN ---
Subjective Patient is 60-year-old male with a known history of asthma/COPD, history of DVT, chronic low back pain, osteoarthritis and morbid obesity with BMI 46.7 presents to ER with complaints of generalized weakness and fatigue and worsening shortness of breath and exertional dyspnea. Patient states that he has been having symptoms for the past 5-6 days and his and other family members were also tested positive for covid 19 infection. Patient has been having generalized weakness and fatigue. No complaints of chest pain. Does have cough without any sputum production. No nausea vomiting or abdominal pain or diarrhea. Chest x-ray showed diffuse residual coarsening and moderate patchy airspace opacities bilaterally. Findings may represent Covid 19 pneumonia. EKG showed normal sinus rhythm Laboratory data showed WBC 7.6 hemoglobin 10.9 and platelets 167 lymphocytes 0.4 INR 1.9 and d-dimer is 1.16 Sodium 126 potassium 4.8 chloride 89 BUN 6 T5 and creatinine 1.85 calcium 7.9 AST 219 ALT 55 alk phos 63 ALT is 2347 and CRP 24.0 Procalcitonin 0.69, Covid 19 PCR detected. Patient is not vaccinated. 02/03/2021 Patient is currently in the emergency room awaiting for self care unit transfer. Patient is currently on BiPAP 16 x 6 with 100% FiO2. Patient is still having shortness of breath and he appears to be in mild distress and unable to tolerate BiPAP. Otherwise patient has been afebrile. Currently being continued on dexamethasone, warfarin dosing and multivitamins. Patient was started on ceftriaxone for possible urinary tract infection. Laboratory data showed sodium 128 potassium 4.3 chloride 91 BUN 60 and creatinine 1.8 LDH 893 and CRP 21.9 No complaints of chest pain. Patient is awake alert and oriented 3. Pulmonary is on board. 02/04/2021 Patient remains in the emergency department. Currently on BiPAP with 100% FiO2. Patient is saturating mid 80s. Sitting up in the bed. Still tachypneic and anxious. Awake alert and oriented. Laboratory showed WBC 11.2 hemoglobin 15.7 and platelets 202 lymphocytes 0.4 Sodium 131 potassium 4.3 chloride 94 bicarb is 28 BUN 75 creatinine 1.42. Urine culture is pending. Patient is being current on ceftriaxone. Patient is being continued on dexamethasone, Coumadin and multivitamins. Pulmonary is following. 02/05/2021 Patient is on BiPAP with FiO2 100%. Patient is restless and tachypneic. Pulling out tubes. Oxygen saturations around 82% to 90% while on BiPAP. Patient has been afebrile. Currently being continued on dexamethasone and Coumadin dosing. INR is 4.8 toda y. Laboratory data showed WBC 16.1 hemoglobin 16.1 platelets 170 BUN 77 creatinine 1.16 and troponin 0 0.042. Patient is also being current ceftriaxone for acute urinary tract infection. Urine culture showed no growth. Pulmonary is following. Patient does not want to get intubated. 02/06/2021 Patient was transferred to MICU. Intubated and on mechanical ventilator. Patient is sedated and multiple drips including propofol, fentanyl and Nimbex. Patient is also requiring norepinephrine. Laboratory showed WBC 20.7 hemoglobin 15.7 platelets 173 INR 5.8 Sodium 138 potassium 4.6 BUN 77 creatinine 1.43 LDH 3075 and CRP 15.1 AST 262 ALT 93 alk phos 94 and blood sugar is 188. Patient is being continued ceftriaxone, dexamethasone IV and Coumadin on hold. Patient is also on IV hydration with normal saline at 75 cc/h. Chest x-ray showed patchy infiltrates throughout both lung griffiths no change. Correlate clinically and follow-up and resolution is recommended. 02/07/2021 Patient is seen and evaluated and follow-up continues to be closely monitored in the ICU with pulmonary history professor following closely. Patient remains on sedation with propofol and fentanyl and is also continued on Nimbex and currently attempting to wean norepinephrine. Patient also continues on IV ceftriaxone for the possibility of a UTI although urine culture show no growth for 18 hours and will repeat pro calcitonin and consider discontinuing IV antibiotics. Patient also continues on vitamin and zinc along with Lovenox and IV dexamethasone and will continue. Pulmonary history professor following and patient continues to be on mechanical vent and FiO2 is at 50% with a PEEP of 14 and per nursing staff no attempts at weaning today. Chest x-ray was done and pending. Inflammatory markers continue to be elevated although trending down. 02/08/2021 This is a pleasant 60 years old male with multiple medical problems was admitted for respiratory distress secondary to bilateral Covid pneumonia and acute hypoxic respiratory failure and on the top of that bacterial superinfection is suspected with his procalcitonin elevated at 0.6 and 0.43 and patient was placed on ceftriaxone currently. Cystoscopy the ICU monitor closely and followed by pulmonary/critical care team. Labs showing leukocytosis of 16.6 while his steroids. D-dimer 1.5, LDH elevated 1965, CRP 9.0. Mildly elevated liver enzymes. He is also on warfarin with INR is subtherapeutic at 1.5. Creatinine is trending down to 1.4 down to 1.2 however patient looks like he has chronic kidney disease stage III. Currently covered with vitamin C, vitamin D, zinc, dexamethasone, ceftriaxone, normal saline 75 mL/h, warfarin and Protonix 02/09/2021 The patient remains in the ICU sedated and intubated on mechanical ventilation with pulmonary/critical care team following him closely. Patient remains clinically the same is still tachypneic he still on critical condition. WBC slightly better 13.6, liver enzymes mildly elevated, INR is 1.6 and today he will receive 3 mg of iodine. Sodium slightly elevated 146 and his IV fluid was changed to D5 half-normal saline. He remains on ceftriaxone, dexamethasone, multiple vitamins and warfarin 02/10/2021 Patient remains in critical condition needing intubation and sedation with pulmonary/critical care team following him closely and help with vent management. Distal significantly tachypneic. jesus stable, WBC is normal today 9.6. Creatinine 1.1. INR was 1.6 yesterday and 1.5 today and her receiving 3 mg today. Still on steroids, vitamins, also he received 1 time dose of Lasix while his ceftriaxone and D5 half-normal saline at 75Milliliters per hour both are discontinued 02/11/2021 Patient is in the ICU status post intubation. He is on mechanical ventilation with pulmonary/critical care team on the case. He still tachypneic with FiO2 of 70%. Labs showing leukocytosis 16 K, INR actually is trending down 1.4 and received 6 mg of warfarin today. Creatinine within baseline of 1.26. Sodium is stable at 145. His hydrochlorothiazide/lisinopril was discontinued for borderline blood pres sure on midodrine started. Remains on dexamethasone, vitamin C, D and zinc. 02/12/2021 patient remains in the ICU intubated and sedated with no much progress in his clinical condition despite optical medical treatment and prolonged hospitalization with pulmonary/critical care team following him closely. Today surgery team were consulted for PEG tube and tracheostomy placement on 02/14 Also he has bilateral DVT while his on warfarin, patient was started on heparin drip. He remains on dexamethasone, multiple vitamins. 02/13/2021 Patient is in the ICU status post intubation and mechanical ventilation with pulmonary/critical care team followed closely. Patient does not make much progress and pulmonary team recommendation PEG tube and tracheostomy placement on the consulted surgery with planned to do the procedure tomorrow. I called the spouse Mrs. Mervat morgan At [phone] and I discussed the case with her including the plan for tracheostomy and PEG tube placement by surgery team tomorrow and all her questions were answered to her satisfaction. Please there is no consent obtained by medical team for this procedure and this has been deferred to surgery team Abdomen the patient is tachypneic hypoxic, leukocytosis of 13 K which is slightly improving Also patient is on heparin drip for newly diagnosed bilateral DVT He is also on dexamethasone, vitamin C, D and zinc. 02/14/2021 Patient with no significant improvement she underwent tracheostomy and PEG tube placement by surgery team Other than that she remains on mechanical ventilation 02/15/2021 Patient remains in the ICU intubated and sedated with pulmonary/critical care team following him closely. He is status post tracheostomy and PEG tube placement. Labs look same as well as his hemodynamics is still on 50% FiO2 and tachypneic and 30. Renee stable at 13,000, liver enzymes still mildly elevated, creatinine 1.0. Sodium slightly improved down to 147 while he is on D5W at 75 mL/h. He still on dexamethasone, vitamin C D and zinc. Also he is on heparin drip for his bilateral DVT diagnosed on 02/12 Objective - Vital Signs Vital signs: Vital Signs Temp 98.4 F 02/15/21 12:00 Pulse 50 L 02/15/21 13:00 Resp 30 H 02/15/21 13:00 BP 131/50 02/12/21 18:56 Pulse Ox 96 02/15/21 13:00 Intake & Output 02/14/21 02/15/21 02/15/21 18:59 06:59 18:59 Intake Total 2066.652 1428.423 870.935 Output Total 1725 1420 1420 Balance 341.652 8.423 -549.065 Weight 157.9 kg 157.7 kg Intake: IV 1136 936 549 Dextrose 5% in Water 1, 900 900 300 000 ml @ 75 mls/hr IV . [id number] [facility] Rx#:[id number] d5w 225 presssure bag 36 36 24 Intake, IV Titration 887.652 492.423 321.935 Amount Heparin Sod,Pork in 0.45% 226.893 NaCl 25,000 unit In 0.45 % NaCl 1 250ml.bag @ 14. 375 UNITS/KG/HR 23 mls/hr IV .[id number] [facility] Rx#: [id number] Heparin Sod,Pork in 0.45% 10 NaCl 25,000 unit In 0.45 % NaCl 1 250ml.bag @ 6.34 UNITS/KG/HR 9.998 mls/hr IV .Q24H [facility] Rx#: [id number] Norepinephrine 4 mg In 165.559 44.869 28.800 Sodium Chloride 0.9% 250 ml @ 0.05 MCG/KG/MIN 31. 453 mls/hr IV .Q8H5M [facility] Rx#:[id number] fentaNYL (PF). 1,000 mcg 200 180.354 100 In Sodium Chloride 0.9% 80 ml @ 0.5 MCG/KG/HR 8. 255 mls/hr IV .Q12H7M [facility] Rx#:[id number] propofoL 1,000 mg In 295.2 267.2 183.135 Empty Bag 1 bag @ Titrate IV .Q0M [facility] Rx#: [id number] Tube Feeding 0 Lipid 3 Dextrose 5% in Water 1, 3 000 ml @ 75 mls/hr IV . [id number] [facility] Rx#:[id number] Other 40 Output: Urine 1720 1420 1420 Estimated Blood Loss 5 Other: Voiding Method Indwelling Catheter Indwelling Catheter ABP, PAP, CO, CI - Last Documented Arterial Blood Pressure 103/45 - Exam -GENERAL: The patient is intubated and sedated HEENT: Pupils are round and equally reacting to light. EOMI. No scleral icterus. No conjunctival pallor. Normocephalic, atraumatic. No pharyngeal erythema. No thyromegaly. CARDIOVASCULAR: S1 and S2 present. No murmurs, rubs, or gallops. -PULMONARY: Chest is clear to auscultation, no wheezing . bilateral crepitation Abdomen: soft, nontender, nondistended, normoactive bowel sounds. No palpable organomegaly. MUSCULOSKELETAL: No joint swelling or deformity. EXTREMITIES: No cyanosis, clubbing, or pedal edema. NEUROLOGICAL: Gross neurological examination did not reveal any focal deficits. SKIN: No rashes. no petechiae. - Labs CBC & Chem 7: 02/15/21 04:00 02/15/21 04:00 Labs: Abnormal Lab Results - Last 24 Hours (Table) 02/14/21 02/14/21 02/15/21 Range/Units 18:18 23:28 04:00 WBC 13.7 H (3.8-10.6) k/uL RBC 3.98 L (4.30-5.90) m/uL Hgb 12.7 L (13.0-17.5) gm/dL MCV 101.1 H (80.0-100.0) fL Plt Count 135 L (150-450) k/uL Neutrophils # 12.7 H (1.3-7.7) k/uL Lymphocytes # 0.5 L (1.0-4.8) k/uL ABG pCO2 (35-45) mmHg ABG HCO3 (21-25) mmol/L ABG Total CO2 (19-24) mmol/L ABG O2 Saturation (94-97) % Sodium (137-145) mmol/L Chloride (98-107) mmol/L BUN (9-20) mg/dL Glucose (74-99) mg/dL POC Glucose (mg/dL) 208 H 204 H (75-99) mg/dL AST (17-59) U/L ALT (4-49) U/L Total Protein (6.3-8.2) g/dL Albumin (3.5-5.0) g/dL 02/15/21 02/15/21 02/15/21 Range/Units 04:00 05:13 05:38 WBC (3.8-10.6) k/uL RBC (4.30-5.90) m/uL Hgb (13.0-17.5) gm/dL MCV (80.0-100.0) fL Plt Count (150-450) k/uL Neutrophils # (1.3-7.7) k/uL Lymphocytes # (1.0-4.8) k/uL ABG pCO2 48 H (35-45) mmHg ABG HCO3 31 H (21-25) mmol/L ABG Total CO2 33 H (19-24) mmol/L ABG O2 Saturation 97.8 H (94-97) % Sodium 147 H (137-145) mmol/L Chloride 112 H (98-107) mmol/L BUN 82 H (9-20) mg/dL Glucose 195 H (74-99) mg/dL POC Glucose (mg/dL) 168 H (75-99) mg/dL AST 92 H (17-59) U/L ALT 129 H (4-49) U/L Total Protein 5.7 L (6.3-8.2) g/dL Albumin 2.6 L (3.5-5.0) g/dL 02/15/21 Range/Units 11:32 WBC (3.8-10.6) k/uL RBC (4.30-5.90) m/uL Hgb (13.0-17.5) gm/dL MCV (80.0-100.0) fL Plt Count (150-450) k/uL Neutrophils # (1.3-7.7) k/uL Lymphocytes # (1.0-4.8) k/uL ABG pCO2 (35-45) mmHg ABG HCO3 (21-25) mmol/L ABG Total CO2 (19-24) mmol/L ABG O2 Saturation (94-97) % Sodium (137-145) mmol/L Chloride (98-107) mmol/L BUN (9-20) mg/dL Glucose (74-99) mg/dL POC Glucose (mg/dL) 180 H (75-99) mg/dL AST (17-59) U/L ALT (4-49) U/L Total Protein (6.3-8.2) g/dL Albumin (3.5-5.0) g/dL Assessment and Plan Assessment: Bilateral Covid pneumonia Acute hypoxic respiratory failure, requiring mechanical ventilation, status post tracheostomy and PEG tube placement on 02/14 Increased inflammatory markers Chronic kidney disease, stage III Acute UTI, finished treatment history of DVT currently on anticoagulation with Coumadin. Morbid obesity with BMI 46.7 Chronic low back pain COPD/asthma Osteoarthritis Plan: This is a pleasant 60 years old male who presents with Bilateral Covid pneumonia and hypoxia Continue with vitamin C, vitamin D, and zinc. Continue with dexamethasone Pulmonary team consult Continue with mechanical ventilation for critical care team. Status post tracheostomy and PEG tube placement on 02/14 Heparin drip for DVT Labs and medication were reviewed.. Continue same treatment. Continue with symptomatic treatment. Resume home medication. Monitor lytes and vitals. DVT and GI prophylaxis. Further recommendations as per clinical course of the patient DVT prophylaxis: warfarin/Heparin drip GI Prophylaxis: Ppi Prognosis is guarded
[2021-02-15 23:27] LABS: Glucose,Whole Blood 194 mg/dL (75-99)
[2021-02-16] MEDS: fentaNYL (PF). 1,000 MCG in SODIUM CHLORIDE 0.9% 80 ML IV SCH ×4 (00:21→20:54)
[2021-02-16] MEDS: NOREPINEPHRINE 4 MG in SODIUM CHLORIDE 0.9% 250 ML IV SCH ×3 (00:30→16:17)
[2021-02-16] MEDS: DEXTROSE 5% IN WATER 1,000 ML IV SCH ×2 (02:33→10:32)
[2021-02-16 03:24] LABS: Basophils % (A) 0 %; Eosinophils % (A) 0 %; HCT 40.1 % (39.0-53.0); HGB 12.5 gm/dL (13.0-17.5); Lymphocytes # (A) 0.4 k/uL (1.0-4.8); Lymphocytes % (A) 3 %; MCH 32.1 pg (25.0-35.0); MCHC 31.3 g/dL (31.0-37.0); MCV 102.5 fL (80.0-100.0); Macrocytosis Slight; Mean Platelet Volume 10.6; Monocytes # (A) 0.4 k/uL (0-1.0); Monocytes % (A) 4 %; Neutrophils # (A) 10.4 k/uL (1.3-7.7); Neutrophils % (A) 93 %; Platelet Count 123 k/uL (150-450); RBC 3.91 m/uL (4.30-5.90); RDW 14.3 % (11.5-15.5); WBC 11.2 k/uL (3.8-10.6)
[2021-02-16 04:02] LABS: ALT 115 U/L (4-49); AST 73 U/L (17-59); African American GFR (CKD) >90 (>60 ml/min/1.73 sqM); Albumin 2.4 g/dL (3.5-5.0); Alkaline Phosphatase 78 U/L (38-126); Anion Gap 5 mmol/L; Blood Urea Nitrogen 75 mg/dL (9-20); Calcium 8.6 mg/dL (8.4-10.2); Carbon Dioxide 29 mmol/L (22-30); Chloride 112 mmol/L (98-107); Glucose 217 mg/dL (74-99); Non-African American GFR(CKD) 88 (>60 ml/min/1.73 sqM); Potassium 4.5 mmol/L (3.5-5.1); Sodium 146 mmol/L (137-145); Total Protein 5.5 g/dL (6.3-8.2)
[2021-02-16] MEDS: ARTIFICIAL TEARS-HYPROMELLOSE DROPS 15 ML BTL BOTH EYES SCH ×5 (04:25→20:53)
[2021-02-16 05:45] LABS: ABG Base Excess 6.5 mmol/L; ABG HCO3 31 mmol/L (21-25); ABG Oxygen Saturation 95.1 % (94-97); ABG PCO2 49 mmHg (35-45); ABG PH 7.41 (7.35-7.45); ABG PO2 72 mmHg (83-108); ABG TCO2 33 mmol/L (19-24); Allen Test Performed? Yes
[2021-02-16 05:52] LABS: Glucose,Whole Blood 181 mg/dL (75-99)
[2021-02-16] MEDS: INSULIN ASPART (NovoLOG) 100 UNIT/ML VIAL SQ SCH ×3 (05:54→17:41)
[2021-02-16] MEDS: MIDODRINE 5 MG TAB PO SCH ×3 (06:37→16:17)
[2021-02-16] MEDS: HEPARIN SOD,PORK IN 0.45% NACL 25,000 UNIT in 0.45% NACL 1 250ML.BAG IV SCH ×2 (06:38→19:58)
--- NOTE | 2021-02-16 06:52 | XR ---
EXAMINATION TYPE: XR chest 1V portable DATE OF EXAM: 02/16/2021 COMPARISON: 02/15/2021 HISTORY: Shortness of breath TECHNIQUE: Single frontal view of the chest is obtained. FINDINGS: There is been no change in the right-sided central venous catheter. There is a tracheostom y tube 2.58 cm above the arden. There are partially consolidative bibasilar infiltrates unchanged compared to previous. There is no pneumothorax. There are no large pleural effusions. IMPRESSION: No change in the acute cardiopulmonary process.
[2021-02-16] MEDS: ALBUTEROL HFA INHALER INHALATION PRN ×3 (07:15→15:21)
[2021-02-16] MEDS: allopurinoL 300 MG TAB PO SCH ×2 (07:23→20:47)
[2021-02-16] MEDS: ASCORBIC ACID 500 MG TAB PO SCH (07:23)
[2021-02-16] MEDS: CHOLECALCIFEROL 25 MCG (1000 IU) TABLET PO SCH (07:24)
[2021-02-16] MEDS: ZINC SULFATE 220 MG CAP PO SCH (07:24)
[2021-02-16] MEDS: GABAPENTIN 400 MG CAP PO SCH ×2 (07:24→20:42)
[2021-02-16] MEDS: DEXAMETHASONE SOD PHOSPHATE 10 MG/ML 1 ML VIAL IVP SCH (08:36)
[2021-02-16] MEDS: PANTOPRAZOLE 40 MG/10 ML VIAL IVP SCH (08:36)
[2021-02-16] MEDS: CHLORHEXIDINE GLUCONATE 15 ML CUP MUCOUS MEM SCH ×2 (08:36→20:53)
--- NOTE | 2021-02-16 08:45 | P.PN ---
Subjective Patient is seen in follow-up for acute kidney injury. Renal function back to baseline. Sodium level 146 today. Receiving D5W. Off Levophed. Nonoliguric. Vital signs are stable. HEENT: Tracheostomy noted.. HEART: Rate and Rhythm are regular. EXTREMITITES: Edema noted in the lower extremities. Exam discussed with the nurse. Objective - Vital Signs Vital signs: Vital Signs Temp 98.6 F 02/16/21 08:00 Pulse 73 02/16/21 08:00 Resp 30 H 02/16/21 08:00 BP 131/50 02/12/21 18:56 Pulse Ox 94 L 02/16/21 08:00 Intake & Output 02/15/21 02/16/21 02/16/21 18:59 06:59 18:59 Intake Total 6358.575 8183.918 303.997 Output Total 2120 1400 300 Balance -716.332 449.918 3.997 Weight 155.8 kg Intake: IV 786 936 156 Dextrose 5% in Water 1, 300 000 ml @ 75 mls/hr IV . [id number] [facility] Rx#:[id number] d5w 453 900 150 presssure bag 33 36 6 Intake, IV Titration 617.668 583.918 117.997 Amount Heparin Sod,Pork in 0.45% 40 231.308 NaCl 25,000 unit In 0.45 % NaCl 1 250ml.bag @ 6.34 UNITS/KG/HR 9.998 mls/hr IV .Q24H [facility] Rx#: [id number] Mvi, Adult No.4 with Vit 120 30 30 K 10 ml Trace (Conc-1Ml/ Dose) 1 ml In Amino Acid 5%-D15w+Lytes*E* 1,000 ml @ 30 mls/hr IV .BY DURATION [facility] Rx#: [id number] Norepinephrine 4 mg In 28.800 7.411 Sodium Chloride 0.9% 250 ml @ 0.05 MCG/KG/MIN 31. 453 mls/hr IV .Q8H5M [facility] Rx#:[id number] fentaNYL (PF). 1,000 mcg 200 200 In Sodium Chloride 0.9% 80 ml @ 0.5 MCG/KG/HR 8. 255 mls/hr IV .Q12H7M [facility] Rx#:[id number] propofoL 1,000 mg In 228.868 115.199 87.997 Empty Bag 1 bag @ Titrate IV .Q0M [facility] Rx#: [id number] TPN/PPN 330 30 TPN 330 30 Output: Urine 2120 1400 300 Other: Voiding Method Indwelling Catheter Indwelling Catheter # Bowel Movements 1 ABP, PAP, CO, CI - Last Documented Arterial Blood Pressure 139/53 - Labs CBC & Chem 7: 02/16/21 03:00 02/16/21 03:00 Labs: Abnormal Lab Results - Last 24 Hours (Table) 02/15/21 02/15/21 02/15/21 Range/Units 11:32 17:19 23:26 WBC (3.8-10.6) k/uL RBC (4.30-5.90) m/uL Hgb (13.0-17.5) gm/dL MCV (80.0-100.0) fL Plt Count (150-450) k/uL Neutrophils # (1.3-7.7) k/uL Lymphocytes # (1.0-4.8) k/uL APTT (22.0-30.0) sec ABG pCO2 (35-45) mmHg ABG pO2 (83-108) mmHg ABG HCO3 (21-25) mmol/L ABG Total CO2 (19-24) mmol/L Sodium (137-145) mmol/L Chloride (98-107) mmol/L BUN (9-20) mg/dL Glucose (74-99) mg/dL POC Glucose (mg/dL) 180 H 198 H 194 H (75-99) mg/dL AST (17-59) U/L ALT (4-49) U/L Total Protein (6.3-8.2) g/dL Albumin (3.5-5.0) g/dL 02/16/21 02/16/21 02/16/21 Range/Units 03:00 03:00 03:00 WBC 11.2 H (3.8-10.6) k/uL RBC 3.91 L (4.30-5.90) m/uL Hgb 12.5 L (13.0-17.5) gm/dL MCV 102.5 H (80.0-100.0) fL Plt Count 123 L (150-450) k/uL Neutrophils # 10.4 H (1.3-7.7) k/uL Lymphocytes # 0.4 L (1.0-4.8) k/uL APTT 34.0 H (22.0-30.0) sec ABG pCO2 (35-45) mmHg ABG pO2 (83-108) mmHg ABG HCO3 (21-25) mmol/L ABG Total CO2 (19-24) mmol/L Sodium 146 H (137-145) mmol/L Chloride 112 H (98-107) mmol/L BUN 75 H (9-20) mg/dL Glucose 217 H (74-99) mg/dL POC Glucose (mg/dL) (75-99) mg/dL AST 73 H (17-59) U/L ALT 115 H (4-49) U/L Total Protein 5.5 L (6.3-8.2) g/dL Albumin 2.4 L (3.5-5.0) g/dL 02/16/21 02/16/21 Range/Units 05:51 06:00 WBC (3.8-10.6) k/uL RBC (4.30-5.90) m/uL Hgb (13.0-17.5) gm/dL MCV (80.0-100.0) fL Plt Count (150-450) k/uL Neutrophils # (1.3-7.7) k/uL Lymphocytes # (1.0-4.8) k/uL APTT (22.0-30.0) sec ABG pCO2 49 H (35-45) mmHg ABG pO2 72 L (83-108) mmHg ABG HCO3 31 H (21-25) mmol/L ABG Total CO2 33 H (19-24) mmol/L Sodium (137-145) mmol/L Chloride (98-107) mmol/L BUN (9-20) mg/dL Glucose (74-99) mg/dL POC Glucose (mg/dL) 181 H (75-99) mg/dL AST (17-59) U/L ALT (4-49) U/L Total Protein (6.3-8.2) g/dL Albumin (3.5-5.0) g/dL Assessment and Plan Plan: Assessment: 1. Acute kidney injury secondary to ATN secondary to septic shock. Improved. Creatinine 0.93 today. Nonoliguric. 2. Acute hypoxic respiratory failure secondary to COVID-19 pneumonia. 3. Hypernatremia from lack of oral water intake. 4. Lower extremity edema. Plan: Maintain D5W - increase rate to 100 mL an hour. Receiving TPN. Status post IV Lasix given yesterday. Wean FiO2.
--- NOTE | 2021-02-16 10:52 | P.PN ---
Subjective Progress Note Date: 02/16/21 Principal diagnosis: Coronavirus associated pneumonia. On 02/05/2021 patient seen in follow-up on selective care unit, patient is currently on BiPAP with FiO2 100%, he is very restless, he frequently removes the tubing, becomes more short of breath, he desaturates, he has required lorazepam 1 mg every 4 hours for anxiety. He is currently on Decadron 6 more gram daily, he is on empiric antibiotics in the form of ceftriaxone, he is on Coumadin, and his INR today is 4.8, the rest of his lab work is still pending for today. His urinalysis showed possibility of urinary tract infection, urine culture not show any growth. No fever or chills. His last chest x-ray was done 2 days ago showing diffuse residual coarsening and moderate patchy airspace opacities bilaterally. There is chronic elevation of the right hemidiaphragm. His last set of inflammatory markers was on 02/03/2021, but noted improvements in his inflammatory markers. Reevaluated today on 02/06/2021, patient was transferred to the ICU yesterday, mostly because his pulmonary status continued to deteriorate, patient remained hypoxic, continued to remove his BiPAP mask, transferred into the ICU, placed on Precedex initially, and kept him on BiPAP, however patient continued to saturate, and I was notified about the nurses that his clinical status is getting worse, recommended immediate intubation and mechanical ventilation. Patient is now intubated, mechanically ventilated. He is on assist control rate of 30 tidal volume 450 FiO2 60% and PEEP of 14. ABG showed a pO2 of 86 pCO2 of 52 pH of 7.36, patient remains on multiple drips including propofol at 40 mcg/kg/m, fentanyl 1 mcg/kg/h Nimbex 1.5 mcg/kg/m. Patient is also requiring norepinephrine at 0.1 mcg/kg/m. LDH today is extremely high over 3000. WBC count is elevated at 20.7 hemoglobin 15.7 his electrolytes are normal however his renal profile showed a BUN of 77 creatinine 1.47 chest x-ray showed patchy bilateral infiltrates, slight improvement compared to chest x-ray prior to intubation. His INR today is 5.8, hence I plan to reverse his INR are at least give him fresh frozen plasma and vitamin K in order to safely place a central line and arterial line in this patient. Reevaluated today on 02/07/2021, patient remains in the ICU, intubated and mechanically ventilated. He is on assist control rate of 30 tidal volume 450 Fi O2 50% and PEEP of 14. ABG showed a pO2 of 75 pCO2 48 pH of 7.40. Chest x-ray continues to show bilateral infiltrates with a right lower lobe consolidation. No changes were made in his ventilator settings today. Agent remains on multiple drips including propofol at 40 mcg/kg/m, fentanyl at 20 mcg/kg/h Nimbex at 2 mcg/minute, norepinephrine at 0.03 mcg/kg/m, IV fluid saline at 75 mL/h he is also on enteral feedings. LDH is improving down to 1966 CRP is 9 about the same. Electrolytes are about the same but BUN is 74 creatinine is 1.35. Again chest x-ray showed no major change since admission. Education list was reviewed, patient is on allopurinol, ascorbic acid, Rocephin, vitamin D, De cadron 6 mg IV push daily, Neurontin 1600 mg twice a day, lisinopril, insulin, lorazepam, patient is on Protonix 40 mg IV push daily, Coumadin 2 mg daily. And the patient is on zinc Reevaluated today on 02/08/2021, remains in the ICU, intubated and mechanically ventilated. Patient is on assist control rate of 30 tidal volume 450 FiO2 50% PEEP is 14. ABG showed a pO2 of 73 pCO2 46 pH of 7.40 hence no changes were made in his present ventilator settings. Chest x-ray continues to show not much of a significant change, bilateral infiltrates persist. Patient is on fentanyl at 1 mcg/kg/h, propofol at 40 mcg/kg/minute, Nimbex at 2 mcg/kg/m, norepinephrine at 0.02 mcg/kg/m. Patient is on vital AF rate 45 per hour. WBC count today 16.6 hemoglobin 14 INR 1.5 patient is on Coumadin for history of DVT. Sodium 145 potassium 4.4 chloride 111 bicarb 28 BUN is 74 creatinine is 1.22. Remains on vitamin C, Rocephin, vitamin D, Decadron 6 mg IV push daily, Neurontin, lisinopril, Protonix, Coumadin 2 mg daily and is also on zinc. Reevaluated today on 02/09/2021, patient remains in the ICU intubated and mechanically ventilated. He is on assist control rate of 30 tidal volume 450 FiO2 50% PEEP is 14. His ABG showed a pO2 of 96 pCO2 48 pH of 7.37, hence I recommended decreasing the PEEP down to 12. Patient is on multiple drips including fentanyl at 1 mcg/kg/h propofol at 40 mcg/kg/m Nimbex at 1.5 mcg/kg/m norepinephrine at 0.01 mcg/kg/m is also on enteral feeding in the form of vital AF 3 5 mL per hour. His labs showed relatively normal electrolytes except for slightly elevated sodium hence his IV fluid was changed to D545 at 50 mL per hour. Patient had relatively normal electrolytes otherwise except for the sodium being 146. His BUN is 76 creatinine is 1.24 slightly higher hence we'll increase his IV fluid today. Chest x-ray continues to show bilateral infiltrates, chest x-ray is not much different from his baseline. There may be a slight improvement in his right lower lobe consolidation. Endotracheal tube had to be advanced about to see and distally. Medications list was reviewed, patient is on allopurinol, albuterol, vitamin C, Rocephin, Peridex, vitamin D, Flexeril, Decadron 6 mg IV push daily, gabapentin, insulin as per scale, lisinopril with hydrochlorothiazide, Reglan when necessary, Protonix 40 mg IV push daily, and zinc. Progress note dated 02/10/2021. This is a 60-year-old male seen in the intensive care unit, room 250. He was admitted to the hospital on February 02, he moved to the intensive care unit on February 05. He was intubated on February 05, for refractory hypoxemia secondary to coronavirus associated pneumonia. He remains on the mechanical ventilator, on the volume assist control mode, rate 30, tidal volume 450, FiO2 50%, and PEEP of 12. Blood gases show pO2 72, pCO2 of 49, and a pH is 7.35. The patient remains on Nimbex at 1.5 mcg/kg/m, D5.45 at 75 mL an hour, propofol at 40 mcg/kg/m, and fentanyl 1 mcg/kg/h. The patient's also on a small dose of norepinephrine at 0.006 mcg/kg/m, and receiving vital AF 1.2 at 45 mL an hour. The patient's IV will be discontinued. We'll add some Lasix to his regimen. We will DC his ceftriaxone. White count 9.6, hemoglobin 13.3, hematocrit 42.4, and platelet count 94,000. PT 15.5 with an INR 1.5. Sodium 145, potassium 4.9, chlorides 114, CO2 25, anion gap 6, BUN 88, creatinine 1.16, with an albumin of 2.4. Chest x-ray shows diffuse bilateral infiltrates. Progress note dated 02/11/2021. 60-year-old male, seen in room 250. He was admitted to the hospital on February 02, moved to the intensive care unit on the , and intubated on February 05 for refractory hypoxemic respiratory failure, secondary to coronavirus associated pneumonia. The patient remains on the mechanical ventilator. He is on the volume assist control mode, rate 30, tidal volume 450, FiO2 50%, PEEP of 12. Blood gases show a pO2 of 64, pCO2 of 51, pH is 7.35. The patient's on dextrose and half-normal saline at 20 mL an hour, propofol at 40 mcg/kg/m, fentanyl at 1 mcg/kg/h, norepinephrine at 5 mcg/m, and vital AF, 1.2, and 36 mL an hour, which is goal. The patient's renal function has declined, and will have nephrology see the patient in consultation. Currently, white count of 16, hemoglobin 13.9, hematocrit 43.6, and platelet count 109,000. Sodium 145, potassium 5, chlorides 112, CO2 27, anion gap 6, BUN 106, creatinine 1.26. Calcium is 8.0. Chest x-ray shows diffuse bilateral infiltrates, largely unchanged, consistent with coronavirus associated pneumonia. Progress note dated 02/12/2021. 60-year-old male, again seen in room 250. The patient was admitted to the hospital on February 02, and moved to the intensive care unit on February 05. The patient was intubated on February 05 for refractory hypoxemic respiratory failure, secondary to coronavirus associated pneumonia. The patient remains ventilated. He is on the volume assist control mode, rate 30, tidal volume 450, FiO2 70%, and PEEP of 12. Blood gases show pO2 of 69, pCO2 56, and a pH is 7.32. The patient is on propofol for at 40 mcg/kg/m, fentanyl at 1 mcg/kg/h, norepinephrine at 0.03 mcg/kg/m, D5.45 at 20 mL an hour, and vital AF at 35 mL an hour, which is goal. We did a Doppler of the lower extremities. It was positive for DVT. An attempt to wean the FiO2. Surgery was consulted for a possible tracheostomy and PEG tube placement. The patient be started on IV heparin, and Coumadin will be discontinued. White count 19.6, hemoglobin 13.8, hematocrit 43.6, platelet count 92,000. PT 13.4, INR 1.3. Sodium 146, potassium 5.4, chlorides 112, CO2 29, anion gap 5, BUN 100, creatinine 1.23. Calcium 8.3. Microbiology is currently negative. Chest x-ray shows diffuse bilateral infiltrates, unchanged. Dopplers of the legs, show a DVT, bilaterally. Progress note dated 02/13/2021. 60-year-old male, again seen in room 250. He was admitted to the hospital on 02/02/2021, and moved to the intensive care unit on 02/05/2021. The patient was intubated on the same day, or coronavirus associated pneumonia, and hypoxemic respiratory failure. The patient remains on the mechanical ventilator. He is on the volume assist control mode, rate 30, tidal volume 450, FiO2 50%, and PEEP of 12. Blood gases show pO2 of 81, pCO2 of 54, and a pH is 7.36. The patient's on propofol at 30 mcg/kg/m, fentanyl at 1 mcg/kg/h, norepinephrine at 0.02 mcg/kg/m, heparin via weightbase protocol, and D5.45 at 20 mL an hour. In addition, the patient's getting tube feeds at 38 mL an hour, which is goal. The patient is apparently scheduled to have a tracheostomy and PEG tube placement on Wednesday by surgery. Dopplers of the lower extremities yesterday revealed bilateral extremity DVTs. White count 13.1, hemoglobin 12.9, hematocrit 40.9, platelet count 112,000. PTT was 113.5. Sodium 149, potassium 5.2, chlorides 1:15, CO2 30, anion gap 4, BUN 93, and creatinine 1.18. Chest x-ray shows diffuse bilateral infiltrates consistent with coronavirus associated pneumonia. Progress note dated 02/14/2021. 60-year-old male, again seen in room 250. He was admitted to the hospital on 02/02/2021, and moved to the intensive care unit on 02/05/2021. The patient was intubated on the same day, for, coronavirus associated pneumonia and hypoxemic respiratory failure. The patient is to have a tracheostomy and PEG tube placed today by surgery. The patient remains on the volume assist control mode, rate 30, tidal volume 450, FiO2 50%, and PEEP of 12. Gases show pO2 of 83, pCO2 of 51, and a pH is 7.41. The patient remains on fentanyl at 1 mcg/kg/h, propofol at 25 mcg/kg/m, norepinephrine is on hold. Heparin was on hold. He is getting D5W at 75 mL an hour, and tube feeds are currently on hold. White count is 10.8, hemoglobin 12.6, hematocrit 40.4, and platelet count 138,000. Sodium 149, potassium 5.2, chlorides 114, CO2 29, anion gap 6, BUN 93, with a creatinine 0.96. Chest x-ray continues to show diffuse bilateral infiltrates consistent with coronavirus pneumonia. This note dated 02/15/2021. 60-year-old male, again seen in room 250. Yesterday, the patient underwent a tracheostomy. The patient remains on the ventilator. He is on the volume assist control mode, rate 30, tidal volume 450, FiO2 50%, and PEEP of 12. Arterial blood gases show pO2 of 93, pCO2 48, and a pH is 7.42. The patient's currently on fentanyl 1 mcg/kg/h, propofol at 25 mcg/kg/m, norepinephrine at 0.01 mcg/kg/m, and D5W at 75 mL an hour. Heparin will be restarted because of the bilateral lower extremity DVTs. Unfortunately, the NG tube could not be inserted. I've asked the nurse to try again today. He may need TPN. White count 13.7, hemoglobin 12.7, hematocrit 40.3, and platelet count 135,000. Sodium 147, potassium 5, chlorides 112, CO2 29, anion gap 6, BUN 82, with a creatinine of 1. Albumin is 2.6. Chest x-rays shows a midline tracheostomy tube, and diffuse bilateral infiltrates, which are largely unchanged. Progress note dated 02/16/2021. 60-year-old male, again seen in room 250. The patient underwent tracheostomy on 02/14/2021. A PEG tube could not be placed because of body habitus. The patient remains on the mechanical ventilator. Ventilator settings include the volume assist control, rate 30, tidal volume 450, FiO2 50%, and PEEP of 12. The patient is on propofol at 15 mcg/kg/m, fentanyl 1 mcg/kg/h, heparin via weightbase protocol, TPN at 30 mL an hour, and D5W at 75 is an hour. Arterial blood gases show pO2 72, pCO2 49, and pH is 7.41. White count 11.2, hemoglobin 12.5, hematocrit 40.1, and platelet count 123,000. PTT is 34. Sodium 146, potassium 4.5, chlorides 112, CO2 29, anion gap 5, BUN 75, and creatinine 0.93. Albumin is 2.4. Microbiology is negative. Chest x-ray continues to show diffuse bilateral infiltrates, consistent with coronavirus associated pneumonia. When compared to the x-ray, the day before, there are no changes. Objective - Vital Signs Vital signs: Vital Signs Temp 98.6 F 02/16/21 08:00 Pulse 52 L 02/16/21 10:00 Resp 30 H 02/16/21 10:00 BP 131/50 02/12/21 18:56 Pulse Ox 93 L 02/16/21 10:00 Intake & Output 02/15/21 02/16/21 02/16/21 18:59 06:59 18:59 Intake Total 8865.003 0841.918 644.997 Output Total 2120 1400 450 Balance -716.332 449.918 194.997 Weight 155.8 kg Intake: IV 786 936 237 Dextrose 5% in Water 1, 300 000 ml @ 75 mls/hr IV . [id number] [facility] Rx#:[id number] d5w 453 900 225 presssure bag 33 36 12 Intake, IV Titration 617.668 583.918 377.997 Amount Dextrose 5% in Water 1, 200 000 ml @ 100 mls/hr IV . Q10H [facility] Rx#:[id number] Heparin Sod,Pork in 0.45% 40 231.308 NaCl 25,000 unit In 0.45 % NaCl 1 250ml.bag @ 6.34 UNITS/KG/HR 9.998 mls/hr IV .Q24H [facility] Rx#: [id number] Mvi, Adult No.4 with Vit 120 30 90 K 10 ml Trace (Conc-1Ml/ Dose) 1 ml In Amino Acid 5%-D15w+Lytes*E* 1,000 ml @ 30 mls/hr IV .BY DURATION [facility] Rx#: [id number] Norepinephrine 4 mg In 28.800 7.411 Sodium Chloride 0.9% 250 ml @ 0.05 MCG/KG/MIN 31. 453 mls/hr IV .Q8H5M [facility] Rx#:[id number] fentaNYL (PF). 1,000 mcg 200 200 In Sodium Chloride 0.9% 80 ml @ 0.5 MCG/KG/HR 8. 255 mls/hr IV .Q12H7M [facility] Rx#:[id number] propofoL 1,000 mg In 228.868 115.199 87.997 Empty Bag 1 bag @ Titrate IV .Q0M [facility] Rx#: [id number] TPN/PPN 330 30 TPN 330 30 Output: Urine 2120 1400 450 Other: Voiding Method Indwelling Catheter Indwelling Catheter # Bowel Movements 1 ABP, PAP, CO, CI - Last Documented Arterial Blood Pressure 100/43 - Exam No acute distress, sedated, with a midline tracheostomy tube. Saturations are 93%. HEENT examination is grossly unremarkable. Neck supple. Full range of motion. No adenopathy thyromegaly or neck vein distention. Cardiovascular examination reveals regular rhythm rate. S1-S2 normal. No S3 or S4. No discernible murmur noted. Heart rate is 52 bpm. Heart sounds are diminished. Lungs reveal coarse bilateral rhonchi. No wheezes or crackles. Breath sounds are equal bilaterally. Saturations are 96%. Abdomen soft bowel sounds are heard. No masses or tenderness. Extremities reveal chronic venous stasis changes, and bilateral lateral lower extremity edema. No cyanosis or clubbing. Skin is without rash or lesion. Neurologic examination cannot be adequately assessed as the patient's currently sedated. - Labs CBC & Chem 7: 02/16/21 03:00 02/16/21 03:00 Labs: Abnormal Lab Results - Last 24 Hours (Table) 02/15/21 02/15/21 02/15/21 Range/Units 11:32 17:19 23:26 WBC (3.8-10.6) k/uL RBC (4.30-5.90) m/uL Hgb (13.0-17.5) gm/dL MCV (80.0-100.0) fL Plt Count (150-450) k/uL Neutrophils # (1.3-7.7) k/uL Lymphocytes # (1.0-4.8) k/uL APTT (22.0-30.0) sec ABG pCO2 (35-45) mmHg ABG pO2 (83-108) mmHg ABG HCO3 (21-25) mmol/L ABG Total CO2 (19-24) mmol/L Sodium (137-145) mmol/L Chloride (98-107) mmol/L BUN (9-20) mg/dL Glucose (74-99) mg/dL POC Glucose (mg/dL) 180 H 198 H 194 H (75-99) mg/dL AST (17-59) U/L ALT (4-49) U/L Total Protein (6.3-8.2) g/dL Albumin (3.5-5.0) g/dL 02/16/21 02/16/21 02/16/21 Range/Units 03:00 03:00 03:00 WBC 11.2 H (3.8-10.6) k/uL RBC 3.91 L (4.30-5.90) m/uL Hgb 12.5 L (13.0-17.5) gm/dL MCV 102.5 H (80.0-100.0) fL Plt Count 123 L (150-450) k/uL Neutrophils # 10.4 H (1.3-7.7) k/uL Lymphocytes # 0.4 L (1.0-4.8) k/uL APTT 34.0 H (22.0-30.0) sec ABG pCO2 (35-45) mmHg ABG pO2 (83-108) mmHg ABG HCO3 (21-25) mmol/L ABG Total CO2 (19-24) mmol/L Sodium 146 H (137-145) mmol/L Chloride 112 H (98-107) mmol/L BUN 75 H (9-20) mg/dL Glucose 217 H (74-99) mg/dL POC Glucose (mg/dL) (75-99) mg/dL AST 73 H (17-59) U/L ALT 115 H (4-49) U/L Total Protein 5.5 L (6.3-8.2) g/dL Albumin 2.4 L (3.5-5.0) g/dL 02/16/21 02/16/21 Range/Units 05:51 06:00 WBC (3.8-10.6) k/uL RBC (4.30-5.90) m/uL Hgb (13.0-17.5) gm/dL MCV (80.0-100.0) fL Plt Count (150-450) k/uL Neutrophils # (1.3-7.7) k/uL Lymphocytes # (1.0-4.8) k/uL APTT (22.0-30.0) sec ABG pCO2 49 H (35-45) mmHg ABG pO2 72 L (83-108) mmHg ABG HCO3 31 H (21-25) mmol/L ABG Total CO2 33 H (19-24) mmol/L Sodium (137-145) mmol/L Chloride (98-107) mmol/L BUN (9-20) mg/dL Glucose (74-99) mg/dL POC Glucose (mg/dL) 181 H (75-99) mg/dL AST (17-59) U/L ALT (4-49) U/L Total Protein (6.3-8.2) g/dL Albumin (3.5-5.0) g/dL Assessment and Plan Assessment: Acute hypoxemic respiratory failure secondary to coronavirus associated pneumonia, status post intubation and mechanical ventilation on 02/05/2021. Status post tracheostomy on 02/14/2021. PEG tube could not be inserted. Acute kidney injury. Bilateral lower extremity DVT, diagnosed on 02/12/2021. Previous history of DVT. Obesity. Chronic back pain. History of COPD/asthma. Prior history of pancreatitis. History of essential hypertension. Acute urinary tract infection. Plan: Plan dated 02/10/2021. The patient is way ahead on fluids, hence, his fluids to be cut back. We will make them KVO. The patient will be given a dose of IV Lasix. We'll DC the ceftriaxone at this time. We continue with enteral feedings and nutritional support, and vitamin cocktail, as well as Decadron, and blood thinner. Additional recommendations and suggestions are forthcoming. Prognosis is guarded. The patient is still on 50% PEEP of 12. He's been intubated since the eighth. He may require tracheostomy and PEG tube placement should he not show improvement. Plan dated 02/11/2021. Will have nephrology see the patient. The patient was weaned off the Nimbex. He remains on fentanyl, fall, and norepinephrine. The patient is receiving nutrition at goal. Blood gases are reasonable. He is on 50% PEEP of 12. We will continue to follow make recommendations where appropriate. The patient continues on Decadron and blood thinner. Additional recommendations and suggestions are forthcoming. Prognosis is guarded. Plan dated 02/12/2021. Dopplers of the lower extremities reveal bilateral DVT. The patient's Coumadin will be discontinued. The patient be started on IV heparin. In addition, it appears likely the patient will need a tracheostomy and PEG tube. Surgery is consulted. We will attempt to wean the FiO2. The patient remains on propofol, and fentanyl, and a small amount of norepinephrine. Overall prognosis remains very guarded. We will continue to follow make recommendations where appropriate. Labs, x-rays, and all medications are reviewed. Plan dated 02/13/2021. We will change patient's IV fluids to D5W at KVO. The patient is mildly hyponatremic. We can increase water flushes as well. The patient is scheduled to have a tracheostomy and PEG tube placement tomorrow. The patient's on IV heparin right now because of bilateral lower extremity DVTs. The patient's overall prognosis remains guarded. The patient remains on propofol, fentanyl, and norepinephrine. We will continue to follow make recommendations were appropriate. The rest of the medications are reviewed. Chest x-ray, and labs are also reviewed. Plan dated 02/14/2021. The patient remains on the mechanical ventilator. The patient will hopefully have a tracheostomy and PEG tube placement today. The patient remains on fentanyl and propofol. Norepinephrine is currently on hold. IV heparin is currently on hold for the surgery. The patient remains on D5W at 75 mL an hour. The patient's blood gases are reasonable. Chest x-rays unchanged. Medications are extensively reviewed. We will continue to follow make recommendations where appropriate. Prognosis is guarded. Plan dated 02/15/2021. The patient remains on the mechanical ventilator. The patient underwent tracheostomy tube placement on February 14. The nurses could not reinsert the NG tube. We will try later today. The patient remains on fentanyl, propofol, and norepinephrine. The patient's heparin will be restarted. We will continue to follow make recommendations where appropriate. Prognosis is guarded. The patient will have a morning chest x-ray, CBC, basic metabolic profile, and blood gas. Plan dated 02/16/2021. The patient remains on the mechanical ventilator. No vent changes were made today. The patient has been weaned off of Nimbex. The patient remains on propofol and fentanyl. The patient is getting TPN at 30 mL an hour. Heparin is being given for his lower extremity DVTs. The NG tube could not be reinserted. Labs, chest x-rays, and medications are all reviewed. Prognosis is guarded. We will continue to follow make recommendations where appropriate. Time with Patient: Greater than 30
[2021-02-16 11:38] LABS: Glucose,Whole Blood 253 mg/dL (75-99)
[2021-02-16 12:08] LABS: Magnesium 2.2 mg/dL (1.6-2.3); Phosphorus 4.1 mg/dL (2.5-4.5)
--- NOTE | 2021-02-16 13:49 | P.PN ---
Subjective Progress Note Date: 02/15/21 CHIEF COMPLAINT: : Coronavirus vent dependent respiratory failure HISTORY OF PRESENT ILLNESS: The patient is a 60-year-old male diagnosed with coronavirus an acute hypoxia with respiratory failure also has severe calorie protein malnutrition. He status post tracheostomy and gastrostomy tube placement yesterday. No complications overnight. Patient's on full ventilatory management in the intensive care unit. ROS: No fevers or chills. No new chest pain. No new neurological event PHYSICAL EXAM: VITAL SIGNS: Reviewed CONSTITUTIONAL: Well developed and in no acute distress. EYES: Conjuctivae without sclera icterus. Extraocular movements grossly intact. HEAD, EARS, NOSE, THROAT: Moist buccal mucosa. Head is atraumatic, normocephalic. No nasal drainage. Tracheostomy intact. RESPIRATORY: Tachypnea, on full mechanical ventilatory management CARDIOVASCULAR: 2+ radial pulses. ABDOMEN: Gastrostomy tube intact. MUSCULOSKELETAL: No gross deformity of the lower extremities noted. No cl ubbing. No cyanosis. SKIN: Good skin turgor. Well perfused. NEUROLOGIC: Cranial nerves II through XII grossly intact. No focal or lateralizing signs. PSYCH: Intubated and sedated CLINICAL LABS: Reviewed. WBC elevated 13.7. Hemoglobin low 12.7. ASSESSMENT: 1. Acute hypoxic respiratory failure and mechanical ventilation 2. Severe protein malnutrition status post gastrostomy tube placement. 3. COVID-19 pneumonia 4. Status post tracheostomy PLAN: 1. Vent management per intensive care unit 2. Tube feeds management per dietitian 3. Supportive management for coronavirus pneumonia Objective - Vital Signs Vital signs: Vital Signs Temp 98.2 F 02/15/21 08:00 Pulse 55 L 02/15/21 11:00 Resp 30 H 02/15/21 11:00 BP 131/50 02/12/21 18:56 Pulse Ox 96 02/15/21 11:00 Intake & Output 02/14/21 02/15/21 02/15/21 18:59 06:59 18:59 Intake Total 2066.652 1428.423 535.357 Output Total 1725 1420 1070 Balance 341.652 8.423 -534.643 Weight 157.9 kg 157.7 kg Intake: IV 1136 936 315 Dextrose 5% in Water 1, 900 900 300 000 ml @ 75 mls/hr IV . [id number] [facility] Rx#:[id number] presssure bag 36 36 15 Intake, IV Titration 887.652 492.423 220.357 Amount Heparin Sod,Pork in 0.45% 226.893 NaCl 25,000 unit In 0.45 % NaCl 1 250ml.bag @ 14. 375 UNITS/KG/HR 23 mls/hr IV .[id number] [facility] Rx#: [id number] Norepinephrine 4 mg In 165.559 44.869 23.957 Sodium Chloride 0.9% 250 ml @ 0.05 MCG/KG/MIN 31. 453 mls/hr IV .Q8H5M [facility] Rx#:[id number] fentaNYL (PF). 1,000 mcg 200 180.354 100 In Sodium Chloride 0.9% 80 ml @ 0.5 MCG/KG/HR 8. 255 mls/hr IV .Q12H7M [facility] Rx#:[id number] propofoL 1,000 mg In 295.2 267.2 96.4 Empty Bag 1 bag @ Titrate IV .Q0M [facility] Rx#: [id number] Tube Feeding 0 Lipid 3 Dextrose 5% in Water 1, 3 000 ml @ 75 mls/hr IV . [id number] [facility] Rx#:[id number] Other 40 Output: Urine 1720 1420 1070 Estimated Blood Loss 5 Other: Voiding Method Indwelling Catheter Indwelling Catheter ABP, PAP, CO, CI - Last Documented Arterial Blood Pressure 114/48 - Labs CBC & Chem 7: 02/16/21 03:00 02/16/21 03:00 Labs: Abnormal Lab Results - Last 24 Hours (Table) 02/14/21 02/14/21 02/14/21 Range/Units 11:45 18:18 23:28 WBC (3.8-10.6) k/uL RBC (4.30-5.90) m/uL Hgb (13.0-17.5) gm/dL MCV (80.0-100.0) fL Plt Count (150-450) k/uL Neutrophils # (1.3-7.7) k/uL Lymphocytes # (1.0-4.8) k/uL ABG pCO2 (35-45) mmHg ABG HCO3 (21-25) mmol/L ABG Total CO2 (19-24) mmol/L ABG O2 Saturation (94-97) % Sodium (137-145) mmol/L Chloride (98-107) mmol/L BUN (9-20) mg/dL Glucose (74-99) mg/dL POC Glucose (mg/dL) 211 H 208 H 204 H (75-99) mg/dL AST (17-59) U/L ALT (4-49) U/L Total Protein (6.3-8.2) g/dL Albumin (3.5-5.0) g/dL 02/15/21 02/15/21 02/15/21 Range/Units 04:00 04:00 05:13 WBC 13.7 H (3.8-10.6) k/uL RBC 3.98 L (4.30-5.90) m/uL Hgb 12.7 L (13.0-17.5) gm/dL MCV 101.1 H (80.0-100.0) fL Plt Count 135 L (150-450) k/uL Neutrophils # 12.7 H (1.3-7.7) k/uL Lymphocytes # 0.5 L (1.0-4.8) k/uL ABG pCO2 (35-45) mmHg ABG HCO3 (21-25) mmol/L ABG Total CO2 (19-24) mmol/L ABG O2 Saturation (94-97) % Sodium 147 H (137-145) mmol/L Chloride 112 H (98-107) mmol/L BUN 82 H (9-20) mg/dL Glucose 195 H (74-99) mg/dL POC Glucose (mg/dL) 168 H (75-99) mg/dL AST 92 H (17-59) U/L ALT 129 H (4-49) U/L Total Protein 5.7 L (6.3-8.2) g/dL Albumin 2.6 L (3.5-5.0) g/dL 02/15/21 02/15/21 Range/Units 05:38 11:32 WBC (3.8-10.6) k/uL RBC (4.30-5.90) m/uL Hgb (13.0-17.5) gm/dL MCV (80.0-100.0) fL Plt Count (150-450) k/uL Neutrophils # (1.3-7.7) k/uL Lymphocytes # (1.0-4.8) k/uL ABG pCO2 48 H (35-45) mmHg ABG HCO3 31 H (21-25) mmol/L ABG Total CO2 33 H (19-24) mmol/L ABG O2 Saturation 97.8 H (94-97) % Sodium (137-145) mmol/L Chloride (98-107) mmol/L BUN (9-20) mg/dL Glucose (74-99) mg/dL POC Glucose (mg/dL) 180 H (75-99) mg/dL AST (17-59) U/L ALT (4-49) U/L Total Protein (6.3-8.2) g/dL Albumin (3.5-5.0) g/dL Assessment and Plan (1) Acute respiratory failure with hypoxia Current Visit: Yes Status: Acute Code(s): J96.01 - ACUTE RESPIRATORY FAILURE WITH HYPOXIA SNOMED Code(s): 04527515 (2) Severe protein-calorie malnutrition Current Visit: Yes Status: Acute Code(s): E43 - UNSPECIFIED SEVERE PROTEIN- CALORIE MALNUTRITION SNOMED Code(s): 069081130 (3) Morbid obesity due to excess calories Current Visit: Yes Status: Acute Code(s): E66.01 - MORBID (SEVERE) OBESITY DUE TO EXCESS CALORIES SNOMED Code(s): 581525602 (4) BMI 40.0-44.9, adult Current Visit: Yes Status: Acute Code(s): Z68.41 - BODY MASS INDEX [BMI] 40.0-44.9, ADULT SNOMED Code(s): 290501259 (5) COVID-19 Current Visit: Yes Status: Acute Code(s): U07.1 - COVID-19 SNOMED Code(s): 595827581 (6) Hypoxia Current Visit: Yes Status: Acute Code(s): R09.02 - HYPOXEMIA SNOMED Code(s): 497315534
--- NOTE | 2021-02-16 16:07 | P.PN ---
Subjective Progress Note Date: 02/16/21 CHIEF COMPLAINT: : Coronavirus vent dependent respiratory failure HISTORY OF PRESENT ILLNESS: The patient is a 60-year-old male diagnosed with coronavirus an acute hypoxia with respiratory failure also has severe calorie protein malnutrition. He status post tracheostomy and gastrostomy tube placement. Patient is on full ventilatory support in the ICU. ROS: No fevers or chills. No new chest pain. No new neurological event PHYSICAL EXAM: VITAL SIGNS: Reviewed CONSTITUTIONAL: Well developed and in no acute distress. EYES: Conjuctivae without sclera icterus. Extraocular movements grossly intact. HEAD, EARS, NOSE, THROAT: Moist buccal mucosa. Head is atraumatic, normocephalic. No nasal drainage. Tracheostomy intact. RESPIRATORY: On full mechanical ventilatory management CARDIOVASCULAR: 2+ radial pulses. ABDOMEN: Gastrostomy tube intact. MUSCULOSKELETAL: No clubbing. No cyanosis. SKIN: Well perfused. NEUROLOGIC: No focal or lateralizing signs. PSYCH: Intubated and sedated CLINICAL LABS: Reviewed. WBC elevated 13.7 down to 11.2. Hemoglobin 12.5. ASSESSMENT: 1. Acute hypoxic respiratory failure and mechanical ventilation 2. Severe protein malnutrition status post gastrostomy tube placement. 3. COVID-19 pneumonia 4. Status post tracheostomy PLAN: 1. Vent management per intensive care unit 2. Tube feeds management per dietitian 3. Supportive management for coronavirus pneumonia Objective - Vital Signs Vital signs: Vital Signs Temp 98.8 F 02/16/21 12:00 Pulse 90 02/16/21 15:00 Resp 31 H 02/16/21 15:00 BP 131/50 02/12/21 18:56 Pulse Ox 92 L 02/16/21 15:00 Intake & Output 02/15/21 02/16/21 02/16/21 18:59 06:59 18:59 Intake Total 1585.825 9834.918 1446.997 Output Total 2120 1400 885 Balance -716.332 449.918 561.997 Weight 155.8 kg Intake: IV 786 936 249 Dextrose 5% in Water 1, 300 000 ml @ 75 mls/hr IV . [id number] [facility] Rx#:[id number] d5w 453 900 225 presssure bag 33 36 24 Intake, IV Titration 617.668 920.651 6440.997 Amount Dextrose 5% in Water 1, 600 000 ml @ 100 mls/hr IV . Q10H [facility] Rx#:[id number] Heparin Sod,Pork in 0.45% 40 231.308 NaCl 25,000 unit In 0.45 % NaCl 1 250ml.bag @ 6.34 UNITS/KG/HR 9.998 mls/hr IV .Q24H [facility] Rx#: [id number] Mvi, Adult No.4 with Vit 120 30 210 K 10 ml Trace (Conc-1Ml/ Dose) 1 ml In Amino Acid 5%-D15w+Lytes*E* 1,000 ml @ 30 mls/hr IV .BY DURATION [facility] Rx#: [id number] Norepinephrine 4 mg In 28.800 7.411 Sodium Chloride 0.9% 250 ml @ 0.05 MCG/KG/MIN 31. 453 mls/hr IV .Q8H5M [facility] Rx#:[id number] fentaNYL (PF). 1,000 mcg 200 200 100 In Sodium Chloride 0.9% 80 ml @ 0.5 MCG/KG/HR 8. 255 mls/hr IV .Q12H7M [facility] Rx#:[id number] propofoL 1,000 mg In 228.868 115.199 187.997 Empty Bag 1 bag @ Titrate IV .Q0M [facility] Rx#: [id number] Tube Feeding 40 TPN/PPN 330 30 TPN 330 30 Other 30 Output: Urine 2120 1400 885 Other: Voiding Method Indwelling Catheter Indwelling Catheter Indwelling Catheter # Bowel Movements 1 ABP, PAP, CO, CI - Last Documented Arterial Blood Pressure 97/53 - Labs CBC & Chem 7: 02/16/21 03:00 02/16/21 03:00 Labs: Abnormal Lab Results - Last 24 Hours (Table) 02/15/21 02/15/21 02/16/21 Range/Units 17:19 23:26 03:00 WBC 11.2 H (3.8-10.6) k/uL RBC 3.91 L (4.30-5.90) m/uL Hgb 12.5 L (13.0-17.5) gm/dL MCV 102.5 H (80.0-100.0) fL Plt Count 123 L (150-450) k/uL Neutrophils # 10.4 H (1.3-7.7) k/uL Lymphocytes # 0.4 L (1.0-4.8) k/uL APTT (22.0-30.0) sec ABG pCO2 (35-45) mmHg ABG pO2 (83-108) mmHg ABG HCO3 (21-25) mmol/L ABG Total CO2 (19-24) mmol/L Sodium (137-145) mmol/L Chloride (98-107) mmol/L BUN (9-20) mg/dL Glucose (74-99) mg/dL POC Glucose (mg/dL) 198 H 194 H (75-99) mg/dL AST (17-59) U/L ALT (4-49) U/L Total Protein (6.3-8.2) g/dL Albumin (3.5-5.0) g/dL 02/16/21 02/16/21 02/16/21 Range/Units 03:00 03:00 05:51 WBC (3.8-10.6) k/uL RBC (4.30-5.90) m/uL Hgb (13.0-17.5) gm/dL MCV (80.0-100.0) fL Plt Count (150-450) k/uL Neutrophils # (1.3-7.7) k/uL Lymphocytes # (1.0-4.8) k/uL APTT 34.0 H (22.0-30.0) sec ABG pCO2 (35-45) mmHg ABG pO2 (83-108) mmHg ABG HCO3 (21-25) mmol/L ABG Total CO2 (19-24) mmol/L Sodium 146 H (137-145) mmol/L Chloride 112 H (98-107) mmol/L BUN 75 H (9-20) mg/dL Glucose 217 H (74-99) mg/dL POC Glucose (mg/dL) 181 H (75-99) mg/dL AST 73 H (17-59) U/L ALT 115 H (4-49) U/L Total Protein 5.5 L (6.3-8.2) g/dL Albumin 2.4 L (3.5-5.0) g/dL 02/16/21 02/16/21 02/16/21 Range/Units 06:00 11:20 11:34 WBC (3.8-10.6) k/uL RBC (4.30-5.90) m/uL Hgb (13.0-17.5) gm/dL MCV (80.0-100.0) fL Plt Count (150-450) k/uL Neutrophils # (1.3-7.7) k/uL Lymphocytes # (1.0-4.8) k/uL APTT 49.5 H (22.0-30.0) sec ABG pCO2 49 H (35-45) mmHg ABG pO2 72 L (83-108) mmHg ABG HCO3 31 H (21-25) mmol/L ABG Total CO2 33 H (19-24) mmol/L Sodium (137-145) mmol/L Chloride (98-107) mmol/L BUN (9-20) mg/dL Glucose (74-99) mg/dL POC Glucose (mg/dL) 253 H (75-99) mg/dL AST (17-59) U/L ALT (4-49) U/L Total Protein (6.3-8.2) g/dL Albumin (3.5-5.0) g/dL Assessment and Plan (1) Acute respiratory failure with hypoxia Current Visit: Yes Status: Acute Code(s): J96.01 - ACUTE RESPIRATORY FAILURE WITH HYPOXIA SNOMED Code(s): 13409353 (2) Severe protein-calorie malnutrition Current Visit: Yes Status: Acute Code(s): E43 - UNSPECIFIED SEVERE PROTEIN- CALORIE MALNUTRITION SNOMED Code(s): 563069636 (3) Morbid obesity due to excess calories Current Visit: Yes Status: Acute Code(s): E66.01 - MORBID (SEVERE) OBESITY DUE TO EXCESS CALORIES SNOMED Code(s): 249167554 (4) BMI 40.0-44.9, adult Current Visit: Yes Status: Acute Code(s): Z68.41 - BODY MASS INDEX [BMI] 40.0-44.9, ADULT SNOMED Code(s): 839140442 (5) COVID-19 Current Visit: Yes Status: Acute Code(s): U07.1 - COVID-19 SNOMED Code(s): 185441509 (6) Hypoxia Current Visit: Yes Status: Acute Code(s): R09.02 - HYPOXEMIA SNOMED Code(s): 325563752
[2021-02-16] MEDS: 1: MVI, ADULT NO.4 WITH VIT K 10 ML, TRACE (CONC-1ML/DOSE) 1 ML in AMINO ACID 5%-D15W+LY IV SCH ×3 (16:17)
[2021-02-16 17:20] LABS: Glucose,Whole Blood 215 mg/dL (75-99)
--- NOTE | 2021-02-16 22:38 | P.PN ---
Subjective Patient is 60-year-old male with a known history of asthma/COPD, history of DVT, chronic low back pain, osteoarthritis and morbid obesity with BMI 46.7 presents to ER with complaints of generalized weakness and fatigue and worsening shortness of breath and exertional dyspnea. Patient states that he has been having symptoms for the past 5-6 days and his and other family members were also tested positive for covid 19 infection. Patient has been having generalized weakness and fatigue. No complaints of chest pain. Does have cough without any sputum production. No nausea vomiting or abdominal pain or diarrhea. Chest x-ray showed diffuse residual coarsening and moderate patchy airspace opacities bilaterally. Findings may represent Covid 19 pneumonia. EKG showed normal sinus rhythm Laboratory data showed WBC 7.6 hemoglobin 10.9 and platelets 167 lymphocytes 0.4 INR 1.9 and d-dimer is 1.16 Sodium 126 potassium 4.8 chloride 89 BUN 6 T5 and creatinine 1.85 calcium 7.9 AST 219 ALT 55 alk phos 63 ALT is 2347 and CRP 24.0 Procalcitonin 0.69, Covid 19 PCR detected. Patient is not vaccinated. 02/03/2021 Patient is currently in the emergency room awaiting for self care unit transfer. Patient is currently on BiPAP 16 x 6 with 100% FiO2. Patient is still having shortness of breath and he appears to be in mild distress and unable to tolerate BiPAP. Otherwise patient has been afebrile. Currently being continued on dexamethasone, warfarin dosing and multivitamins. Patient was started on ceftriaxone for possible urinary tract infection. Laboratory data showed sodium 128 potassium 4.3 chloride 91 BUN 60 and creatinine 1.8 LDH 893 and CRP 21.9 No complaints of chest pain. Patient is awake alert and oriented 3. Pulmonary is on board. 02/04/2021 Patient remains in the emergency department. Currently on BiPAP with 100% FiO2. Patient is saturating mid 80s. Sitting up in the bed. Still tachypneic and anxious. Awake alert and oriented. Laboratory showed WBC 11.2 hemoglobin 15.7 and platelets 202 lymphocytes 0.4 Sodium 131 potassium 4.3 chloride 94 bicarb is 28 BUN 75 creatinine 1.42. Urine culture is pending. Patient is being current on ceftriaxone. Patient is being continued on dexamethasone, Coumadin and multivitamins. Pulmonary is following. 02/05/2021 Patient is on BiPAP with FiO2 100%. Patient is restless and tachypneic. Pulling out tubes. Oxygen saturations around 82% to 90% while on BiPAP. Patient has been afebrile. Currently being continued on dexamethasone and Coumadin dosing. INR is 4.8 toda y. Laboratory data showed WBC 16.1 hemoglobin 16.1 platelets 170 BUN 77 creatinine 1.16 and troponin 0 0.042. Patient is also being current ceftriaxone for acute urinary tract infection. Urine culture showed no growth. Pulmonary is following. Patient does not want to get intubated. 02/06/2021 Patient was transferred to MICU. Intubated and on mechanical ventilator. Patient is sedated and multiple drips including propofol, fentanyl and Nimbex. Patient is also requiring norepinephrine. Laboratory showed WBC 20.7 hemoglobin 15.7 platelets 173 INR 5.8 Sodium 138 potassium 4.6 BUN 77 creatinine 1.43 LDH 3075 and CRP 15.1 AST 262 ALT 93 alk phos 94 and blood sugar is 188. Patient is being continued ceftriaxone, dexamethasone IV and Coumadin on hold. Patient is also on IV hydration with normal saline at 75 cc/h. Chest x-ray showed patchy infiltrates throughout both lung griffiths no change. Correlate clinically and follow-up and resolution is recommended. 02/07/2021 Patient is seen and evaluated and follow-up continues to be closely monitored in the ICU with pulmonary marketing executive following closely. Patient remains on sedation with propofol and fentanyl and is also continued on Nimbex and currently attempting to wean norepinephrine. Patient also continues on IV ceftriaxone for the possibility of a UTI although urine culture show no growth for 18 hours and will repeat pro calcitonin and consider discontinuing IV antibiotics. Patient also continues on vitamin and zinc along with Lovenox and IV dexamethasone and will continue. Pulmonary marketing executive following and patient continues to be on mechanical vent and FiO2 is at 50% with a PEEP of 14 and per nursing staff no attempts at weaning today. Chest x-ray was done and pending. Inflammatory markers continue to be elevated although trending down. 02/08/2021 This is a pleasant 60 years old male with multiple medical problems was admitted for respiratory distress secondary to bilateral Covid pneumonia and acute hypoxic respiratory failure and on the top of that bacterial superinfection is suspected with his procalcitonin elevated at 0.6 and 0.43 and patient was placed on ceftriaxone currently. Cystoscopy the ICU monitor closely and followed by pulmonary/critical care team. Labs showing leukocytosis of 16.6 while his steroids. D-dimer 1.5, LDH elevated 1965, CRP 9.0. Mildly elevated liver enzymes. He is also on warfarin with INR is subtherapeutic at 1.5. Creatinine is trending down to 1.4 down to 1.2 however patient looks like he has chronic kidney disease stage III. Currently covered with vitamin C, vitamin D, zinc, dexamethasone, ceftriaxone, normal saline 75 mL/h, warfarin and Protonix 02/09/2021 The patient remains in the ICU sedated and intubated on mechanical ventilation with pulmonary/critical care team following him closely. Patient remains clinically the same is still tachypneic he still on critical condition. WBC slightly better 13.6, liver enzymes mildly elevated, INR is 1.6 and today he will receive 3 mg of iodine. Sodium slightly elevated 146 and his IV fluid was changed to D5 half-normal saline. He remains on ceftriaxone, dexamethasone, multiple vitamins and warfarin 02/10/2021 Patient remains in critical condition needing intubation and sedation with pulmonary/critical care team following him closely and help with vent management. Distal significantly tachypneic. jesus stable, WBC is normal today 9.6. Creatinine 1.1. INR was 1.6 yesterday and 1.5 today and her receiving 3 mg today. Still on steroids, vitamins, also he received 1 time dose of Lasix while his ceftriaxone and D5 half-normal saline at 75Milliliters per hour both are discontinued 02/11/2021 Patient is in the ICU status post intubation. He is on mechanical ventilation with pulmonary/critical care team on the case. He still tachypneic with FiO2 of 70%. Labs showing leukocytosis 16 K, INR actually is trending down 1.4 and received 6 mg of warfarin today. Creatinine within baseline of 1.26. Sodium is stable at 145. His hydrochlorothiazide/lisinopril was discontinued for borderline blood pres sure on midodrine started. Remains on dexamethasone, vitamin C, D and zinc. 02/12/2021 patient remains in the ICU intubated and sedated with no much progress in his clinical condition despite optical medical treatment and prolonged hospitalization with pulmonary/critical care team following him closely. Today surgery team were consulted for PEG tube and tracheostomy placement on 02/14 Also he has bilateral DVT while his on warfarin, patient was started on heparin drip. He remains on dexamethasone, multiple vitamins. 02/13/2021 Patient is in the ICU status post intubation and mechanical ventilation with pulmonary/critical care team followed closely. Patient does not make much progress and pulmonary team recommendation PEG tube and tracheostomy placement on the consulted surgery with planned to do the procedure tomorrow. I called the spouse Mrs. Mervat morgan At [phone] and I discussed the case with her including the plan for tracheostomy and PEG tube placement by surgery team tomorrow and all her questions were answered to her satisfaction. Please there is no consent obtained by medical team for this procedure and this has been deferred to surgery team Abdomen the patient is tachypneic hypoxic, leukocytosis of 13 K which is slightly improving Also patient is on heparin drip for newly diagnosed bilateral DVT He is also on dexamethasone, vitamin C, D and zinc. 02/14/2021 Patient with no significant improvement she underwent tracheostomy and PEG tube placement by surgery team Other than that she remains on mechanical ventilation 02/15/2021 Patient remains in the ICU intubated and sedated with pulmonary/critical care team following him closely. He is status post tracheostomy and PEG tube placement. Labs look same as well as his hemodynamics is still on 50% FiO2 and tachypneic and 30. Renee stable at 13,000, liver enzymes still mildly elevated, creatinine 1.0. Sodium slightly improved down to 147 while he is on D5W at 75 mL/h. He still on dexamethasone, vitamin C D and zinc. Also he is on heparin drip for his bilateral DVT diagnosed on 02/1202/16/2021 patient remains intubated and sedated in the ICU with pulmonary/critical care team helped with mechanical ventilation. No much change today. Her FiO2 requirement increased to 70%. Labs looks stable or slightly improved with WBC down to 11.1, creatinine to 0.9, liver enzymes slightly better and sodium slightly bigger at 146. She remains on the same treatment of steroids, vitamins, heparin drip. Patient was taken off Nimbex today and kept on fentanyl and propofol Objective - Vital Signs Vital signs: Vital Signs Temp 98.6 F 02/16/21 08:00 Pulse 60 02/16/21 11:00 Resp 30 H 02/16/21 11:00 BP 131/50 02/12/21 18:56 Pulse Ox 96 12/19/21 11:00 Intake & Output 02/15/21 02/16/21 02/16/21 18:59 06:59 18:59 Intake Total 2738.202 3420.918 777.997 Output Total 2120 1400 510 Balance -716.332 449.918 267.997 Weight 155.8 kg Intake: IV 786 936 240 Dextrose 5% in Water 1, 300 000 ml @ 75 mls/hr IV . [id number] [facility] Rx#:[id number] d5w 453 900 225 presssure bag 33 36 15 Intake, IV Titration 617.668 583.918 507.997 Amount Dextrose 5% in Water 1, 300 000 ml @ 100 mls/hr IV . Q10H [facility] Rx#:[id number] Heparin Sod,Pork in 0.45% 40 231.308 NaCl 25,000 unit In 0.45 % NaCl 1 250ml.bag @ 6.34 UNITS/KG/HR 9.998 mls/hr IV .Q24H [facility] Rx#: [id number] Mvi, Adult No.4 with Vit 120 30 120 K 10 ml Trace (Conc-1Ml/ Dose) 1 ml In Amino Acid 5%-D15w+Lytes*E* 1,000 ml @ 30 mls/hr IV .[facility] Rx#: [id number] Norepinephrine 4 mg In 28.800 7.411 Sodium Chloride 0.9% 250 ml @ 0.05 MCG/KG/MIN 31. 453 mls/hr IV .Q8H5M [facility] Rx#:[id number] fentaNYL (PF). 1,000 mcg 200 200 In Sodium Chloride 0.9% 80 ml @ 0.5 MCG/KG/HR 8. 255 mls/hr IV .Q12H7M [facility] Rx#:[id number] propofoL 1,000 mg In 228.868 115.199 87.997 Empty Bag 1 bag @ Titrate IV .Q0M [facility] Rx#: [id number] TPN/PPN 330 30 TPN 330 30 Output: Urine 2120 1400 510 Other: Voiding Method Indwelling Catheter Indwelling Catheter Indwelling Catheter # Bowel Movements 1 ABP, PAP, CO, CI - Last Documented Arterial Blood Pressure 149/61 - Exam -GENERAL: The patient is intubated and sedated HEENT: Pupils are round and equally reacting to light. EOMI. No scleral icterus. No conjunctival pallor. Normocephalic, atraumatic. No pharyngeal erythema. No thyromegaly. CARDIOVASCULAR: S1 and S2 present. No murmurs, rubs, or gallops. -PULMONARY: Chest is clear to auscultation, no wheezing . bilateral crepitation Abdomen: soft, nontender, nondistended, normoactive bowel sounds. No palpable organomegaly. MUSCULOSKELETAL: No joint swelling or deformity. EXTREMITIES: No cyanosis, clubbing, or pedal edema. NEUROLOGICAL: Gross neurological examination did not reveal any focal deficits. SKIN: No rashes. no petechiae. - Labs CBC & Chem 7: 02/16/21 03:00 02/16/21 03:00 Labs: Abnormal Lab Results - Last 24 Hours (Table) 02/15/21 02/15/21 02/16/21 Range/Units 17:19 23:26 03:00 WBC 11.2 H (3.8-10.6) k/uL RBC 3.91 L (4.30-5.90) m/uL Hgb 12.5 L (13.0-17.5) gm/dL MCV 102.5 H (80.0-100.0) fL Plt Count 123 L (150-450) k/uL Neutrophils # 10.4 H (1.3-7.7) k/uL Lymphocytes # 0.4 L (1.0-4.8) k/uL APTT (22.0-30.0) sec ABG pCO2 (35-45) mmHg ABG pO2 (83-108) mmHg ABG HCO3 (21-25) mmol/L ABG Total CO2 (19-24) mmol/L Sodium (137-145) mmol/L Chloride (98-107) mmol/L BUN (9-20) mg/dL Glucose (74-99) mg/dL POC Glucose (mg/dL) 198 H 194 H (75-99) mg/dL AST (17-59) U/L ALT (4-49) U/L Total Protein (6.3-8.2) g/dL Albumin (3.5-5.0) g/dL 02/16/21 02/16/21 02/16/21 Range/Units 03:00 03:00 05:51 WBC (3.8-10.6) k/uL RBC (4.30-5.90) m/uL Hgb (13.0-17.5) gm/dL MCV (80.0-100.0) fL Plt Count (150-450) k/uL Neutrophils # (1.3-7.7) k/uL Lymphocytes # (1.0-4.8) k/uL APTT 34.0 H (22.0-30.0) sec ABG pCO2 (35-45) mmHg ABG pO2 (83-108) mmHg ABG HCO3 (21-25) mmol/L ABG Total CO2 (19-24) mmol/L Sodium 146 H (137-145) mmol/L Chloride 112 H (98-107) mmol/L BUN 75 H (9-20) mg/dL Glucose 217 H (74-99) mg/dL POC Glucose (mg/dL) 181 H (75-99) mg/dL AST 73 H (17-59) U/L ALT 115 H (4-49) U/L Total Protein 5.5 L (6.3-8.2) g/dL Albumin 2.4 L (3.5-5.0) g/dL 02/16/21 02/16/21 Range/Units 06:00 11:34 WBC (3.8-10.6) k/uL RBC (4.30-5.90) m/uL Hgb (13.0-17.5) gm/dL MCV (80.0-100.0) fL Plt Count (150-450) k/uL Neutrophils # (1.3-7.7) k/uL Lymphocytes # (1.0-4.8) k/uL APTT (22.0-30.0) sec ABG pCO2 49 H (35-45) mmHg ABG pO2 72 L (83-108) mmHg ABG HCO3 31 H (21-25) mmol/L ABG Total CO2 33 H (19-24) mmol/L Sodium (137-145) mmol/L Chloride (98-107) mmol/L BUN (9-20) mg/dL Glucose (74-99) mg/dL POC Glucose (mg/dL) 253 H (75-99) mg/dL AST (17-59) U/L ALT (4-49) U/L Total Protein (6.3-8.2) g/dL Albumin (3.5-5.0) g/dL Assessment and Plan Assessment: Bilateral Covid pneumonia Acute hypoxic respiratory failure, requiring mechanical ventilation, status post tracheostomy and PEG tube placement on 02/14 Increased inflammatory markers Chronic kidney disease, stage III Acute UTI, finished treatment history of DVT currently on anticoagulation with Coumadin. Morbid obesity with BMI 46.7 Chronic low back pain COPD/asthma Osteoarthritis Plan: This is a pleasant 60 years old male who presents with Bilateral Covid pneumonia and hypoxia Continue with vitamin C, vitamin D, and zinc. Continue with dexamethasone Pulmonary team consult Continue with mechanical ventilation for critical care team. Status post tracheostomy and PEG tube placement on 02/14 Heparin drip for DVT Labs and medication were reviewed.. Continue same treatment. Continue with symptomatic treatment. Resume home medication. Monitor lytes and vitals. DVT and GI prophylaxis. Further recommendations as per clinical course of the patient DVT prophylaxis: warfarin/Heparin drip GI Prophylaxis: Ppi Prognosis is guarded
[2021-02-16 23:36] LABS: Glucose,Whole Blood 179 mg/dL (75-99)
[2021-02-17] MEDS: ARTIFICIAL TEARS-HYPROMELLOSE DROPS 15 ML BTL BOTH EYES SCH ×6 (00:03→22:23)
[2021-02-17] MEDS: INSULIN ASPART (NovoLOG) 100 UNIT/ML VIAL SQ SCH ×4 (00:18→18:55)
[2021-02-17] MEDS: fentaNYL (PF). 1,000 MCG in SODIUM CHLORIDE 0.9% 80 ML IV SCH ×3 (05:33→19:58)
[2021-02-17 05:43] LABS: ALT 150 U/L (4-49); AST 120 U/L (17-59); African American GFR (CKD) >90 (>60 ml/min/1.73 sqM); Albumin 2.6 g/dL (3.5-5.0); Alkaline Phosphatase 100 U/L (38-126); Anion Gap 6 mmol/L; Blood Urea Nitrogen 75 mg/dL (9-20); Calcium 8.6 mg/dL (8.4-10.2); Carbon Dioxide 27 mmol/L (22-30); Chloride 109 mmol/L (98-107); Glucose 217 mg/dL (74-99); LDH 1622 U/L (313-618); Magnesium 2.2 mg/dL (1.6-2.3); Non-African American GFR(CKD) 80 (>60 ml/min/1.73 sqM); Phosphorus 4.2 mg/dL (2.5-4.5); Potassium 4.7 mmol/L (3.5-5.1); Sodium 142 mmol/L (137-145); Total Bilirubin 1.9 mg/dL (0.2-1.3); Total Protein 5.8 g/dL (6.3-8.2)
[2021-02-17 06:00] LABS: C Reactive Protein 16.7 mg/dL (<1.0)
[2021-02-17 06:09] LABS: ABG Base Excess 1.9 mmol/L; ABG HCO3 27 mmol/L (21-25); ABG Oxygen Saturation 92.1 % (94-97); ABG PCO2 46 mmHg (35-45); ABG PH 7.38 (7.35-7.45); ABG PO2 62 mmHg (83-108); ABG TCO2 29 mmol/L (19-24); Allen Test Performed? Yes
--- NOTE | 2021-02-17 06:43 | P.PN ---
Subjective Progress Note Date: 02/17/21 This is a 61-year-old male patient who is currently on a mechanical ventilator due to COVID 19 related pneumonia with secondary respiratory failure. Patient's is unvaccinated. The patient presented to us with hypoxic respiratory failure and his oxidation progressively got worse and the patient ultimately had to be intubated and this was followed up by tracheostomy tube insertion on 02/14/2021. The patient currently remains on a mechanical ventilator. He remains sedated on propofol at 50 mcg/kg per minute and fentanyl is running at 1 mcg/kg/h. The patient was given a tracheostomy tube 1 and #8 for respiratory support and currently the patient on assist control mode at the rate of 30 with a tidal volume of 450 and FiO2 of 70% with a PEEP of 12. Earlier this morning, the chest x-ray revealed a large right-sided pneumothorax. Throughout the night, the patient became progressively more hypotensive. Currently the patient is on norepinephrine infusion running at 0.02 mcg/kg per minute. The patient is also on IV fluids currently running at 20 mL an hour. He has developed extensive third spacing and edema in all 4 extremity especially in the legs and a lower extremities. No worsening and hypoxemia or oxygenation. At this point in time, the patient has a peak air pressure of 33. The patient has been diagnosed having bilateral lower extremity DVT and the patient is currently on IV heparin. He was taken warfarin on outpatient basis and this was replaced with IV heparin. Unable to insert a PEG tube. The patient is currently receiving TPN for nutritional support at a rate of 70 mL an hour . The patient remains on Decadron. The microbiology has been essentially negative. The patient is currently on no antibiotics. During the course of the illness, the patient also experienced an acute kidney injury with essentially normalized. He was having hyponatremia and he was treated with D5 water and his sodium level is improved. As such, the plan is to proceed with a chest tube insertion today. García catheter in place. Urine output is adequate for now. He is afebrile. The blood work from today shows a sodium of 142, BUN of 75 and a creatinine of 1.0, AST is 120, ALP is 150, LDH is 1000 22 with a CRP Level of 16.7, His PVCs at 49.5, Blood Gases from Today Shows a pH of 7.37 with a PCO2 of 46 and PO2 of 62 and This Was Done on the Above-Mentioned Ventilator Setting. Objective - Vital Signs Vital signs: Vital Signs Temp 99.5 F 02/17/21 04:00 Pulse 92 02/17/21 06:00 Resp 30 H 02/17/21 06:00 BP 131/50 02/12/21 18:56 Pulse Ox 89 L 02/17/21 06:00 Intake & Output 02/16/21 02/16/21 02/17/21 06:59 18:59 06:59 Intake Total 0426.202 8455.997 1913.663 Output Total 1400 1410 805 Balance 449.918 807.872 4913.663 Weight 155.8 kg 158.7 kg Intake: IV 072 753 2237 Dextrose 5% in Water 1, 1100 000 ml @ 100 mls/hr IV . Q10H [facility] Rx#:[id number] d5w 900 225 presssure bag 36 36 36 Intake, IV Titration 176.973 2482.997 777.663 Amount Amino Acid 5%-D15w+Lytes* 60 30 E* 1,000 ml @ 30 mls/hr IV .BY [facility] Rx#: [id number] Dextrose 5% in Water 1, 1000 100 000 ml @ 100 mls/hr IV . Q10H [facility] Rx#:[id number] Heparin Sod,Pork in 0.45% 231.308 238.44 NaCl 25,000 unit In 0.45 % NaCl 1 250ml.bag @ 6.34 UNITS/KG/HR 9.998 mls/hr IV .Q24H [facility] Rx#: [id number] Mvi, Adult No.4 with Vit 30 270 K 10 ml Trace (Conc-1Ml/ Dose) 1 ml In Amino Acid 5%-D15w+Lytes*E* 1,000 ml @ 30 mls/hr IV .[facility] Rx#: [id number] Norepinephrine 4 mg In 7.411 38.374 Sodium Chloride 0.9% 250 ml @ 0.05 MCG/KG/MIN 31. 453 mls/hr IV .Q8H5M [facility] Rx#:[id number] fentaNYL (PF). 1,000 mcg 200 100 200 In Sodium Chloride 0.9% 80 ml @ 0.5 MCG/KG/HR 8. 255 mls/hr IV .Q12H7M [facility] Rx#:[id number] propofoL 1,000 mg In 115.199 187.997 170.849 Empty Bag 1 bag @ Titrate IV .Q0M [facility] Rx#: [id number] Tube Feeding 40 TPN/PPN 330 30 TPN 330 30 Other 30 Output: Urine 1400 1410 805 Other: Voiding Method Indwelling Catheter Indwelling Catheter Indwelling Catheter ABP, PAP, CO, CI - Last Documented Arterial Blood Pressure 97/54 - Exam No acute distress, sedated, with a midline tracheostomy tube. The patient has a Bivona #8 tracheostomy tube which is well secured in place HEENT examination is grossly unremarkable. Neck supple. Full range of motion. No adenopathy thyromegaly or neck vein distention. Cardiovascular examination reveals regular rhythm rate. S1-S2 normal. No S3 or S4. No discernible murmur noted. Heart rate is 52 bpm. Heart sounds are diminished. Lungs reveal coarse bilateral rhonchi. No wheezes or crackles. . Marked diminished breath sounds on the right Abdomen soft bowel sounds are heard. No masses or tenderness. Extremities reveal chronic venous stasis changes, and bilateral lateral lower extremity edema. No cyanosis or clubbing. Skin is without rash or lesion. Neurologic examination cannot be adequately assessed as the patient's currently sedated. - Labs CBC & Chem 7: 02/16/21 03:00 02/17/21 04:30 Labs: Abnormal Lab Results - Last 24 Hours (Table) 02/16/21 02/16/21 02/16/21 Range/Units 11:20 11:34 17:18 APTT 49.5 H (22.0-30.0) sec Chloride (98-107) mmol/L BUN (9-20) mg/dL Glucose (74-99) mg/dL POC Glucose (mg/dL) 253 H 215 H (75-99) mg/dL Total Bilirubin (0.2-1.3) mg/dL AST (17-59) U/L ALT (4-49) U/L Lactate Dehydrogenase (313-618) U/L C-Reactive Protein (<1.0) mg/dL Total Protein (6.3-8.2) g/dL Albumin (3.5-5.0) g/dL 02/16/21 02/17/21 Range/Units 23:34 04:30 APTT (22.0-30.0) sec Chloride 109 H (98-107) mmol/L BUN 75 H (9-20) mg/dL Glucose 217 H (74-99) mg/dL POC Glucose (mg/dL) 179 H (75-99) mg/dL Total Bilirubin 1.9 H (0.2-1.3) mg/dL AST 120 H (17-59) U/L ALT 150 H (4-49) U/L Lactate Dehydrogenase 1622 H (313-618) U/L C-Reactive Protein 16.7 H (<1.0) mg/dL Total Protein 5.8 L (6.3-8.2) g/dL Albumin 2.6 L (3.5-5.0) g/dL Assessment and Plan Plan: 1 acute COVID 19 related pneumonia. The patient is presenting with worsening shortness of breath of 5 days' duration and the patient came in with severe hypoxic history failure currently on 100% nonrebreather facemask. Patient is not vaccinated. He is exposed to several other household who have COVID 19. The patient has diffuse bilateral pulmonary infiltrates consistent with COVID 19 related pneumonia. The patient was treated with steroids and Baricitinib and the patient is status post intubation and mechanical ventilation on 02/05/2021, Status post tracheostomy on 02/14/2021. PEG tube could not be inserted. On today's evaluation, the patient was found to have a large right-sided pneumothorax and the patient will have a chest tube placed. Along the same complication, the patient became hypotensive overnight and the patient is currently on a low-dose norepinephrine infusion for blood pressure support running at 0.015 mcg/kg per minute. 2 acute hypoxic respiratory failure secondary to above 3 acute kidney injury, likely secondary to intravascular volume depletion/dehydration, recovered. 4 Bilateral lower extremity DVT, diagnosed on 02/12/2021. 5 previous history of DVT and the patient has been maintained on long-term articulation with warfarin, currently on IV heparin 6 obesity with a BMI of 44.1 7 chronic back pain 8 history of COPD/asthma 9 previous history of pancreatitis 10 hypertension 11 chronic pain involving the back and the patient is demented on a combination of Voltaren gel, Flexeril, Percocet and nonsteroidal anti-inflammatory medications including Mobic. 12 acute right-sided pneumothorax, a complication of COVID 19 related pneumonia, expected complication 13 acute hypotension secondary to above 14 TPN for nutritional support, unable to insert an OG or infected with this patient. Plan Keep the patient sedated with a combination of propofol and fentanyl Proceed with a right-sided chest tube insertion Obtain a follow-up chest x-ray post chest tube insertion Monitor hemodynamics and gradually wean off the norepinephrine infusion When asked the GI service to insert a NG via a scope and if successful which should be able to get the patient off the TPN Patient remains on Decadron 6 mg IV every 24 hours Continued IV heparin this will be briefly discontinued around the time of the chest tube insertion Prognosis remains poor baseline above-mentioned comorbidities. We'll continue to follow. Repeated blood gases post chest tube insertion and decide if there is any role for further weaning. I will opacification patient remains critical and prognosis poor based above-mentioned comorbidities. We'll continue to follow. Evaluation was done and more than 30 minutes. Time with Patient: Greater than 30
[2021-02-17 07:08] LABS: Glucose,Whole Blood 174 mg/dL (75-99)
[2021-02-17] MEDS ORDERED: LIDOCAINE 1% INJ 10MG/ML (20 ML MDV) ONE (07:38)
[2021-02-17] MEDS ORDERED: CISATRACURIUM 2 MG/ML 5 ML VIAL IV ONE (07:41)
[2021-02-17] MEDS: ALBUTEROL HFA INHALER INHALATION PRN ×3 (07:55→15:52)
--- NOTE | 2021-02-17 08:24 | XR ---
EXAMINATION TYPE: XR chest 1V portable DATE OF EXAM: 02/17/2021 Comparison: 02/17/2021, earlier today Clinical History: 60-year-old male chest tube insertion Findings: Tracheostomy cannula tip 2.6 cm from the arden. Right IJ CVC tip not well seen due to motion. The ca theter is seen down to at least the mid SVC. Heart upper limits of normal in size. Diffuse patchy int erstitial opacities persist. Right basilar chest tube has been placed in the interval. Significant im provement in the previous right-sided pneumothorax. A 1.5 cm apical component remains. Impression: 1. Interval placement of a basilar right-sided chest tube with reexpansion of the right lung. A small 1.5 cm apical pneumothorax component remains. 2. Continued patchy bilateral interstitial infiltrates.
--- NOTE | 2021-02-17 08:31 | P.PN ---
Subjective Patient is seen in follow-up for acute kidney injury. Renal function back to baseline. Sodium level 142 today. Receiving D5W. On low-dose Levophed. Nonoliguric. Chest tube being inserted due to pneumothorax. Vital signs are stable. HEENT: Tracheostomy noted. HEART: Rate and Rhythm are regular. EXTREMITITES: 2+ edema. Blisters noted. Objective - Vital Signs Vital signs: Vital Signs Temp 99.5 F 02/17/21 04:00 Pulse 89 02/17/21 07:00 Resp 30 H 02/17/21 07:00 BP 131/50 02/12/21 18:56 Pulse Ox 89 L 02/17/21 07:00 Intake & Output 02/16/21 02/17/21 02/17/21 18:59 06:59 18:59 Intake Total 3958.176 8290.663 23 Output Total 1410 805 150 Balance 869.835 3344.663 -127 Weight 158.7 kg Intake: IV 261 1136 23 Dextrose 5% in Water 1, 1100 20 000 ml @ 100 mls/hr IV . Q10H [facility] Rx#:[id number] d5w 225 presssure bag 36 36 3 Intake, IV Titration 1617.997 777.663 Amount Amino Acid 5%-D15w+Lytes* 60 30 E* 1,000 ml @ 30 mls/hr IV .BY DURATION [facility] Rx#: [id number] Dextrose 5% in Water 1, 1000 100 000 ml @ 100 mls/hr IV . Q10H [facility] Rx#:[id number] Heparin Sod,Pork in 0.45% 238.44 NaCl 25,000 unit In 0.45 % NaCl 1 250ml.bag @ 6.34 UNITS/KG/HR 9.998 mls/hr IV .Q24H [facility] Rx#: [id number] Mvi, Adult No.4 with Vit 270 K 10 ml Trace (Conc-1Ml/ Dose) 1 ml In Amino Acid 5%-D15w+Lytes*E* 1,000 ml @ 30 mls/hr IV .BY DURATION [facility] Rx#: [id number] Norepinephrine 4 mg In 38.374 Sodium Chloride 0.9% 250 ml @ 0.05 MCG/KG/MIN 31. 453 mls/hr IV .Q8H5M [facility] Rx#:[id number] fentaNYL (PF). 1,000 mcg 100 200 In Sodium Chloride 0.9% 80 ml @ 0.5 MCG/KG/HR 8. 255 mls/hr IV .Q12H7M [facility] Rx#:[id number] propofoL 1,000 mg In 187.997 170.849 Empty Bag 1 bag @ Titrate IV .Q0M [facility] Rx#: [id number] Tube Feeding 40 TPN/PPN 30 TPN 30 Other 30 Output: Urine 1410 805 150 Other: Voiding Method Indwelling Catheter Indwelling Catheter ABP, PAP, CO, CI - Last Documented Arterial Blood Pressure 92/52 - Labs CBC & Chem 7: 02/16/21 03:00 02/17/21 04:30 Labs: Abnormal Lab Results - Last 24 Hours (Table) 02/16/21 02/16/21 02/16/21 Range/Units 11:20 11:34 17:18 APTT 49.5 H (22.0-30.0) sec ABG pCO2 (35-45) mmHg ABG pO2 (83-108) mmHg ABG HCO3 (21-25) mmol/L ABG Total CO2 (19-24) mmol/L ABG O2 Saturation (94-97) % Chloride (98-107) mmol/L BUN (9-20) mg/dL Glucose (74-99) mg/dL POC Glucose (mg/dL) 253 H 215 H (75-99) mg/dL Total Bilirubin (0.2-1.3) mg/dL AST (17-59) U/L ALT (4-49) U/L Lactate Dehydrogenase (313-618) U/L C-Reactive Protein (<1.0) mg/dL Total Protein (6.3-8.2) g/dL Albumin (3.5-5.0) g/dL 02/16/21 02/17/21 02/17/21 Range/Units 23:34 04:30 06:04 APTT (22.0-30.0) sec ABG pCO2 46 H (35-45) mmHg ABG pO2 62 L (83-108) mmHg ABG HCO3 27 H (21-25) mmol/L ABG Total CO2 29 H (19-24) mmol/L ABG O2 Saturation 92.1 L (94-97) % Chloride 109 H (98-107) mmol/L BUN 75 H (9-20) mg/dL Glucose 217 H (74-99) mg/dL POC Glucose (mg/dL) 179 H (75-99) mg/dL Total Bilirubin 1.9 H (0.2-1.3) mg/dL AST 120 H (17-59) U/L ALT 150 H (4-49) U/L Lactate Dehydrogenase 1622 H (313-618) U/L C-Reactive Protein 16.7 H (<1.0) mg/dL Total Protein 5.8 L (6.3-8.2) g/dL Albumin 2.6 L (3.5-5.0) g/dL 02/17/21 02/17/21 Range/Units 06:55 07:06 APTT 53.2 H (22.0-30.0) sec ABG pCO2 (35-45) mmHg ABG pO2 (83-108) mmHg ABG HCO3 (21-25) mmol/L ABG Total CO2 (19-24) mmol/L ABG O2 Saturation (94-97) % Chloride (98-107) mmol/L BUN (9-20) mg/dL Glucose (74-99) mg/dL POC Glucose (mg/dL) 174 H (75-99) mg/dL Total Bilirubin (0.2-1.3) mg/dL AST (17-59) U/L ALT (4-49) U/L Lactate Dehydrogenase (313-618) U/L C-Reactive Protein (<1.0) mg/dL Total Protein (6.3-8.2) g/dL Albumin (3.5-5.0) g/dL Assessment and Plan Plan: Assessment: 1. Acute kidney injury secondary to ATN secondary to septic shock. Improved. Creatinine 1.0 today. Nonoliguric. 2. Acute hypoxic respiratory failure secondary to COVID-19 pneumonia. 3. Hypernatremia from lack of oral water intake. Improved. 4. Lower extremity edema. 5. Pneumothorax. Chest tube inserted. Plan: Hep-Lock IV fluids. Receiving TPN. Add IV Lasix 40 mg twice daily. Wean FiO2.
[2021-02-17] MEDS: CHLORHEXIDINE GLUCONATE 15 ML CUP MUCOUS MEM SCH ×2 (09:20→22:25)
[2021-02-17] MEDS: ZINC SULFATE 220 MG CAP PO SCH ×2 (09:20→11:11)
[2021-02-17] MEDS: DEXAMETHASONE SOD PHOSPHATE 10 MG/ML 1 ML VIAL IVP SCH (09:20)
[2021-02-17] MEDS: ASCORBIC ACID 500 MG TAB PO SCH ×2 (09:20→11:12)
[2021-02-17] MEDS: PANTOPRAZOLE 40 MG/10 ML VIAL IVP SCH (09:20)
[2021-02-17] MEDS: CHOLECALCIFEROL 25 MCG (1000 IU) TABLET PO SCH ×2 (09:20→11:12)
[2021-02-17] MEDS: FUROSEMIDE 10 MG/ML 4 ML VIAL IV SCH ×2 (09:20→22:25)
[2021-02-17] MEDS: MIDODRINE 5 MG TAB PO SCH ×4 (09:20→16:18)
[2021-02-17] MEDS: allopurinoL 300 MG TAB PO SCH ×2 (09:21→11:12)
[2021-02-17] MEDS: GABAPENTIN 400 MG CAP PO SCH ×3 (09:21→22:24)
[2021-02-17 09:22] LABS: ABG Base Excess 1.7 mmol/L; ABG HCO3 28 mmol/L (21-25); ABG Oxygen Saturation 93.8 % (94-97); ABG PCO2 53 mmHg (35-45); ABG PH 7.33 (7.35-7.45); ABG PO2 73 mmHg (83-108); ABG TCO2 29 mmol/L (19-24); Allen Test Performed? Yes
[2021-02-17] MEDS: NOREPINEPHRINE 4 MG in SODIUM CHLORIDE 0.9% 250 ML IV SCH ×2 (09:39→09:47)
[2021-02-17] MEDS: HEPARIN SOD,PORK IN 0.45% NACL 25,000 UNIT in 0.45% NACL 1 250ML.BAG IV SCH (09:39)
[2021-02-17] MEDS: DEXTROSE 5% IN WATER 1,000 ML IV SCH ×2 (09:45→12:05)
--- NOTE | 2021-02-17 09:51 | XR ---
EXAMINATION TYPE: XR chest 1V portable DATE OF EXAM: 02/17/2021 COMPARISON: 02/16/2021 HISTORY: Shortness of breath TECHNIQUE: Single frontal view of the chest is obtained. FINDINGS: Large right-sided pneumothorax with complete collapse of the lung. ICU notified of finding s. Tracheostomy tube seen with right-sided central line. Left-sided infiltrates are stable. IMPRESSION: 1. Near complete collapse the right lung with large right-sided pneumothorax. 2. Left-sided infiltrate stable
--- NOTE | 2021-02-17 10:07 | P.PCN ---
Date of Procedure: 02/17/21 Preoperative Diagnosis: Right-sided pneumothorax Postoperative Diagnosis: Right-sided pneumothorax Procedure(s) Performed: Right sided chest tube Anesthesia: local Surgeon: Juanito Rosa Estimated Blood Loss (ml): 0 Pathology: other Condition: critical Disposition: ICU Operative Findings: A time-out was completed verifying correct patient, procedure, site, positioning, and special equipment if applicable. The patient was positioned appropriately for chest tube placement. The patients right chest was prepped and draped in sterile fashion. 1% Lidocaine was used to anesthetize the surrounding skin area. A 2 cm skin incision was made in the mid-axillary line at the inframammarycrease. Utilizing blunt dissection a subcutaneous tunnel was created cephalad just adjacent to the superior rib. The pleural space was entered bluntly and gush of air was observed. A finger was inserted into the pleural space to check for anatomy and guide tube insertion. A 36F thoracostomy tube was inserted using a Tara clamp and positioned appropriately. The chest tube was sutured securely to the skin and a sterile dressing applied. A pleurevac was attached to the chest tube and a chest x-ray obtained. I personally performed this procedure and I was was present for the entire procedure. Estimated Blood Loss: 0 The patient tolerated the procedure well and there were no complications.
[2021-02-17 11:47] LABS: Glucose,Whole Blood 187 mg/dL (75-99)
--- NOTE | 2021-02-17 12:55 | P.PN ---
Subjective Progress Note Date: 02/17/21 CHIEF COMPLAINT: COVID-19 pneumonia HISTORY OF PRESENT ILLNESS: Patient in the ICU on mechanical ventilation. He is status post tracheostomy placement. PEG tube placement was unsuccessful. Today patient had a right-sided pneumothorax and had to have a right-sided chest tube placed. Patient is currently on TPN for nutrition support. Nursing staff unable to place NG tube after's several attempts. Critical care service requesting insertion of NG tube via endoscopy. Afebrile. PHYSICAL EXAM: VITAL SIGNS: Reviewed. GENERAL: Well-developed in no acute distress. HEENT: No sclera icterus. Moist buccal mucosa. Head is atraumatic, normocephalic. ABDOMEN: Soft. Nondistended. Nontender. NEUROLOGIC: Intubated and sedated ASSESSMENT: 1. Acute hypoxic respiratory failure secondary to COVID-19 pneumonia status post tracheostomy placement 2. Severe protein calorie malnutrition 3. Bilateral lower extremity DVT on IV heparin PLAN: -EGD with gastric tube placement tomorrow 02/18/[address] Mena -Continue ICU management -Continue supportive care Physician Director Outpatient Services note has been reviewed by physician. Signing provider agrees with the documented findings, assessment, and plan of care. Objective - Vital Signs Vital signs: Vital Signs Temp 99.2 F 02/17/21 12:00 Pulse 85 02/17/21 12:00 Resp 30 H 02/17/21 07:00 BP 131/50 02/12/21 18:56 Pulse Ox 92 L 02/17/21 12:00 Intake & Output 02/16/21 02/17/21 02/17/21 18:59 06:59 18:59 Intake Total 4151.861 0577.663 681.158 Output Total 3536 300 4569 Balance 660.626 6275.663 -868.842 Weight 158.7 kg Intake: IV 261 1136 138 Dextrose 5% in Water 1, 1100 120 000 ml @ 20 mls/hr IV . Q24H [facility] Rx#:[id number] d5w 225 presssure bag 36 36 18 Intake, IV Titration 1617.997 777.663 543.158 Amount Amino Acid 5%-D15w+Lytes* 60 30 E* 1,000 ml @ 30 mls/hr IV .BY DURATION [facility] Rx#: [id number] Dextrose 5% in Water 1, 1000 100 000 ml @ 20 mls/hr IV . Q24H [facility] Rx#:[id number] Heparin Sod,Pork in 0.45% 238.44 244.699 NaCl 25,000 unit In 0.45 % NaCl 1 250ml.bag @ 6.34 UNITS/KG/HR 9.998 mls/hr IV .Q24H [facility] Rx#: [id number] Mvi, Adult No.4 with Vit 270 K 10 ml Trace (Conc-1Ml/ Dose) 1 ml In Amino Acid 5%-D15w+Lytes*E* 1,000 ml @ 30 mls/hr IV .BY DURATION [facility] Rx#: [id number] Norepinephrine 4 mg In 38.374 93.099 Sodium Chloride 0.9% 250 ml @ 0.05 MCG/KG/MIN 31. 453 mls/hr IV .Q8H5M [facility] Rx#:[id number] fentaNYL (PF). 1,000 mcg 100 200 69.346 In Sodium Chloride 0.9% 80 ml @ 0.5 MCG/KG/HR 8. 255 mls/hr IV .Q12H7M [facility] Rx#:[id number] propofoL 1,000 mg In 187.997 170.849 136.014 Empty Bag 1 bag @ Titrate IV .Q0M [facility] Rx#: [id number] Tube Feeding 40 TPN/PPN 30 TPN 30 Other 30 Output: Chest Tube Drainage 100 Chest Tube Right 100 Urine 5562 363 9907 Other: Voiding Method Indwelling Catheter Indwelling Catheter Indwelling Catheter ABP, PAP, CO, CI - Last Documented Arterial Blood Pressure 111/53 - Labs CBC & Chem 7: 02/17/21 04:50 02/17/21 04:30 Labs: Abnormal Lab Results - Last 24 Hours (Table) 02/16/21 02/16/21 02/17/21 Range/Units 17:18 23:34 04:30 APTT (22.0-30.0) sec ABG pH (7.35-7.45) ABG pCO2 (35-45) mmHg ABG pO2 (83-108) mmHg ABG HCO3 (21-25) mmol/L ABG Total CO2 (19-24) mmol/L ABG O2 Saturation (94-97) % Chloride 109 H (98-107) mmol/L BUN 75 H (9-20) mg/dL Glucose 217 H (74-99) mg/dL POC Glucose (mg/dL) 215 H 179 H (75-99) mg/dL Total Bilirubin 1.9 H (0.2-1.3) mg/dL AST 120 H (17-59) U/L ALT 150 H (4-49) U/L Lactate Dehydrogenase 1622 H (313-618) U/L C-Reactive Protein 16.7 H (<1.0) mg/dL Total Protein 5.8 L (6.3-8.2) g/dL Albumin 2.6 L (3.5-5.0) g/dL 02/17/21 02/17/21 02/17/21 Range/Units 06:04 06:55 07:06 APTT 53.2 H (22.0-30.0) sec ABG pH (7.35-7.45) ABG pCO2 46 H (35-45) mmHg ABG pO2 62 L (83-108) mmHg ABG HCO3 27 H (21-25) mmol/L ABG Total CO2 29 H (19-24) mmol/L ABG O2 Saturation 92.1 L (94-97) % Chloride (98-107) mmol/L BUN (9-20) mg/dL Glucose (74-99) mg/dL POC Glucose (mg/dL) 174 H (75-99) mg/dL Total Bilirubin (0.2-1.3) mg/dL AST (17-59) U/L ALT (4-49) U/L Lactate Dehydrogenase (313-618) U/L C-Reactive Protein (<1.0) mg/dL Total Protein (6.3-8.2) g/dL Albumin (3.5-5.0) g/dL 02/17/21 02/17/21 Range/Units 09:21 11:45 APTT (22.0-30.0) sec ABG pH 7.33 L (7.35-7.45) ABG pCO2 53 H (35-45) mmHg ABG pO2 73 L (83-108) mmHg ABG HCO3 28 H (21-25) mmol/L ABG Total CO2 29 H (19-24) mmol/L ABG O2 Saturation 93.8 L (94-97) % Chloride (98-107) mmol/L BUN (9-20) mg/dL Glucose (74-99) mg/dL POC Glucose (mg/dL) 187 H (75-99) mg/dL Total Bilirubin (0.2-1.3) mg/dL AST (17-59) U/L ALT (4-49) U/L Lactate Dehydrogenase (313-618) U/L C-Reactive Protein (<1.0) mg/dL Total Protein (6.3-8.2) g/dL Albumin (3.5-5.0) g/dL
[2021-02-17 14:12] LABS: Basophils % (A) 0 %; Eosinophils % (A) 0 %; HCT 45.6 % (39.0-53.0); HGB 13.5 gm/dL (13.0-17.5); Hypochromasia Moderate; Lymphocytes # (A) 0.4 k/uL (1.0-4.8); Lymphocytes % (A) 2 %; MCHC 29.6 g/dL (31.0-37.0); MCV 104.6 fL (80.0-100.0); Macrocytosis Slight; Mean Platelet Volume 12.1; Monocytes # (A) 0.6 k/uL (0-1.0); Monocytes % (A) 4 %; Neutrophils # (A) 15.8 k/uL (1.3-7.7); Neutrophils % (A) 93 %; Platelet Count 142 k/uL (150-450); RBC 4.37 m/uL (4.30-5.90); RDW 13.7 % (11.5-15.5)
[2021-02-17] MEDS: 1: MVI, ADULT NO.4 WITH VIT K 10 ML, TRACE (CONC-1ML/DOSE) 1 ML in AMINO ACID 5%-D20W+LY IV SCH ×3 (16:19)
[2021-02-17 18:50] LABS: Glucose,Whole Blood 279 mg/dL (75-99)
--- NOTE | 2021-02-17 23:07 | P.PN ---
Subjective Patient is 60-year-old male with a known history of asthma/COPD, history of DVT, chronic low back pain, osteoarthritis and morbid obesity with BMI 46.7 presents to ER with complaints of generalized weakness and fatigue and worsening shortness of breath and exertional dyspnea. Patient states that he has been having symptoms for the past 5-6 days and his and other family members were also tested positive for covid 19 infection. Patient has been having generalized weakness and fatigue. No complaints of chest pain. Does have cough without any sputum production. No nausea vomiting or abdominal pain or diarrhea. Chest x-ray showed diffuse residual coarsening and moderate patchy airspace opacities bilaterally. Findings may represent Covid 19 pneumonia. EKG showed normal sinus rhythm Laboratory data showed WBC 7.6 hemoglobin 10.9 and platelets 167 lymphocytes 0.4 INR 1.9 and d-dimer is 1.16 Sodium 126 potassium 4.8 chloride 89 BUN 6 T5 and creatinine 1.85 calcium 7.9 AST 219 ALT 55 alk phos 63 ALT is 2347 and CRP 24.0 Procalcitonin 0.69, Covid 19 PCR detected. Patient is not vaccinated. 02/03/2021 Patient is currently in the emergency room awaiting for self care unit transfer. Patient is currently on BiPAP 16 x 6 with 100% FiO2. Patient is still having shortness of breath and he appears to be in mild distress and unable to tolerate BiPAP. Otherwise patient has been afebrile. Currently being continued on dexamethasone, warfarin dosing and multivitamins. Patient was started on ceftriaxone for possible urinary tract infection. Laboratory data showed sodium 128 potassium 4.3 chloride 91 BUN 60 and creatinine 1.8 LDH 893 and CRP 21.9 No complaints of chest pain. Patient is awake alert and oriented 3. Pulmonary is on board. 02/04/2021 Patient remains in the emergency department. Currently on BiPAP with 100% FiO2. Patient is saturating mid 80s. Sitting up in the bed. Still tachypneic and anxious. Awake alert and oriented. Laboratory showed WBC 11.2 hemoglobin 15.7 and platelets 202 lymphocytes 0.4 Sodium 131 potassium 4.3 chloride 94 bicarb is 28 BUN 75 creatinine 1.42. Urine culture is pending. Patient is being current on ceftriaxone. Patient is being continued on dexamethasone, Coumadin and multivitamins. Pulmonary is following. 02/05/2021 Patient is on BiPAP with FiO2 100%. Patient is restless and tachypneic. Pulling out tubes. Oxygen saturations around 82% to 90% while on BiPAP. Patient has been afebrile. Currently being continued on dexamethasone and Coumadin dosing. INR is 4.8 toda y. Laboratory data showed WBC 16.1 hemoglobin 16.1 platelets 170 BUN 77 creatinine 1.16 and troponin 0 0.042. Patient is also being current ceftriaxone for acute urinary tract infection. Urine culture showed no growth. Pulmonary is following. Patient does not want to get intubated. 02/06/2021 Patient was transferred to MICU. Intubated and on mechanical ventilator. Patient is sedated and multiple drips including propofol, fentanyl and Nimbex. Patient is also requiring norepinephrine. Laboratory showed WBC 20.7 hemoglobin 15.7 platelets 173 INR 5.8 Sodium 138 potassium 4.6 BUN 77 creatinine 1.43 LDH 3075 and CRP 15.1 AST 262 ALT 93 alk phos 94 and blood sugar is 188. Patient is being continued ceftriaxone, dexamethasone IV and Coumadin on hold. Patient is also on IV hydration with normal saline at 75 cc/h. Chest x-ray showed patchy infiltrates throughout both lung griffiths no change. Correlate clinically and follow-up and resolution is recommended. 02/07/2021 Patient is seen and evaluated and follow-up continues to be closely monitored in the ICU with pulmonary freight delivery driver following closely. Patient remains on sedation with propofol and fentanyl and is also continued on Nimbex and currently attempting to wean norepinephrine. Patient also continues on IV ceftriaxone for the possibility of a UTI although urine culture show no growth for 18 hours and will repeat pro calcitonin and consider discontinuing IV antibiotics. Patient also continues on vitamin and zinc along with Lovenox and IV dexamethasone and will continue. Pulmonary freight delivery driver following and patient continues to be on mechanical vent and FiO2 is at 50% with a PEEP of 14 and per nursing staff no attempts at weaning today. Chest x-ray was done and pending. Inflammatory markers continue to be elevated although trending down. 02/08/2021 This is a pleasant 60 years old male with multiple medical problems was admitted for respiratory distress secondary to bilateral Covid pneumonia and acute hypoxic respiratory failure and on the top of that bacterial superinfection is suspected with his procalcitonin elevated at 0.6 and 0.43 and patient was placed on ceftriaxone currently. Cystoscopy the ICU monitor closely and followed by pulmonary/critical care team. Labs showing leukocytosis of 16.6 while his steroids. D-dimer 1.5, LDH elevated 1965, CRP 9.0. Mildly elevated liver enzymes. He is also on warfarin with INR is subtherapeutic at 1.5. Creatinine is trending down to 1.4 down to 1.2 however patient looks like he has chronic kidney disease stage III. Currently covered with vitamin C, vitamin D, zinc, dexamethasone, ceftriaxone, normal saline 75 mL/h, warfarin and Protonix 02/09/2021 The patient remains in the ICU sedated and intubated on mechanical ventilation with pulmonary/critical care team following him closely. Patient remains clinically the same is still tachypneic he still on critical condition. WBC slightly better 13.6, liver enzymes mildly elevated, INR is 1.6 and today he will receive 3 mg of iodine. Sodium slightly elevated 146 and his IV fluid was changed to D5 half-normal saline. He remains on ceftriaxone, dexamethasone, multiple vitamins and warfarin 02/10/2021 Patient remains in critical condition needing intubation and sedation with pulmonary/critical care team following him closely and help with vent management. Distal significantly tachypneic. ejsus stable, WBC is normal today 9.6. Creatinine 1.1. INR was 1.6 yesterday and 1.5 today and her receiving 3 mg today. Still on steroids, vitamins, also he received 1 time dose of Lasix while his ceftriaxone and D5 half-normal saline at 75Milliliters per hour both are discontinued 02/11/2021 Patient is in the ICU status post intubation. He is on mechanical ventilation with pulmonary/critical care team on the case. He still tachypneic with FiO2 of 70%. Labs showing leukocytosis 16 K, INR actually is trending down 1.4 and received 6 mg of warfarin today. Creatinine within baseline of 1.26. Sodium is stable at 145. His hydrochlorothiazide/lisinopril was discontinued for borderline blood pres sure on midodrine started. Remains on dexamethasone, vitamin C, D and zinc. 02/12/2021 patient remains in the ICU intubated and sedated with no much progress in his clinical condition despite optical medical treatment and prolonged hospitalization with pulmonary/critical care team following him closely. Today surgery team were consulted for PEG tube and tracheostomy placement on 02/14 Also he has bilateral DVT while his on warfarin, patient was started on heparin drip. He remains on dexamethasone, multiple vitamins. 02/13/2021 Patient is in the ICU status post intubation and mechanical ventilation with pulmonary/critical care team followed closely. Patient does not make much progress and pulmonary team recommendation PEG tube and tracheostomy placement on the consulted surgery with planned to do the procedure tomorrow. I called the spouse Mrs. Mervat morgan At [phone] and I discussed the case with her including the plan for tracheostomy and PEG tube placement by surgery team tomorrow and all her questions were answered to her satisfaction. Please there is no consent obtained by medical team for this procedure and this has been deferred to surgery team Abdomen the patient is tachypneic hypoxic, leukocytosis of 13 K which is slightly improving Also patient is on heparin drip for newly diagnosed bilateral DVT He is also on dexamethasone, vitamin C, D and zinc. 02/14/2021 Patient with no significant improvement she underwent tracheostomy and PEG tube placement by surgery team Other than that she remains on mechanical ventilation 02/15/2021 Patient remains in the ICU intubated and sedated with pulmonary/critical care team following him closely. He is status post tracheostomy and PEG tube placement. Labs look same as well as his hemodynamics is still on 50% FiO2 and tachypneic and 30. Renee stable at 13,000, liver enzymes still mildly elevated, creatinine 1.0. Sodium slightly improved down to 147 while he is on D5W at 75 mL/h. He still on dexamethasone, vitamin C D and zinc. Also he is on heparin drip for his bilateral DVT diagnosed on 02/1202/16/2021 patient remains intubated and sedated in the ICU with pulmonary/critical care team helped with mechanical ventilation. No much change today. Her FiO2 requirement increased to 70%. Labs looks stable or slightly improved with WBC down to 11.1, creatinine to 0.9, liver enzymes slightly better and sodium slightly bigger at 146. She remains on the same treatment of steroids, vitamins, heparin drip. Patient was taken off Nimbex today and kept on fentanyl and propofol 02/16/2021 Patient remains in the ICU sedated and intubated. With pulmonary/critical care team helping with the vent management. Patient hospital course today has been complicated by right lung collapse secondary to pneumothorax apparent on his chest x-ray from today. He status post chest tube placement. Labs reviewed, it looks stable, liver enzymes slightly trending up. Today IV Lasix 20 mg added. 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 Continue with dexamethasone, multiple vitamins, heparin drip. Objective - Vital Signs Vital signs: Vital Signs Temp 99.4 F 02/17/21 08:00 Pulse 105 H 02/17/21 10:00 Resp 30 H 02/17/21 07:00 BP 131/50 02/12/21 18:56 Pulse Ox 93 L 02/17/21 10:00 Intake & Output 02/16/21 02/17/21 02/17/21 18:59 06:59 18:59 Intake Total 0266.427 5221.663 593.793 Output Total 6738 991 5111 Balance 529.812 5338.663 -506.207 Weight 158.7 kg Intake: IV 261 1136 92 Dextrose 5% in Water 1, 1100 80 000 ml @ 20 mls/hr IV . Q24H [facility] Rx#:[id number] d5w 225 presssure bag 36 36 12 Intake, IV Titration 1617.997 777.663 501.793 Amount Amino Acid 5%-D15w+Lytes* 60 30 E* 1,000 ml @ 30 mls/hr IV .BY DURATION [facility] Rx#: [id number] Dextrose 5% in Water 1, 1000 100 000 ml @ 20 mls/hr IV . Q24H [facility] Rx#:[id number] Heparin Sod,Pork in 0.45% 238.44 244.699 NaCl 25,000 unit In 0.45 % NaCl 1 250ml.bag @ 6.34 UNITS/KG/HR 9.998 mls/hr IV .Q24H [facility] Rx#: [id number] Mvi, Adult No.4 with Vit 270 K 10 ml Trace (Conc-1Ml/ Dose) 1 ml In Amino Acid 5%-D15w+Lytes*E* 1,000 ml @ 30 mls/hr IV .BY DURATION [facility] Rx#: [id number] Norepinephrine 4 mg In 38.374 93.099 Sodium Chloride 0.9% 250 ml @ 0.05 MCG/KG/MIN 31. 453 mls/hr IV .Q8H5M [facility] Rx#:[id number] fentaNYL (PF). 1,000 mcg 100 200 69.346 In Sodium Chloride 0.9% 80 ml @ 0.5 MCG/KG/HR 8. 255 mls/hr IV .Q12H7M [facility] Rx#:[id number] propofoL 1,000 mg In 187.997 170.849 94.649 Empty Bag 1 bag @ Titrate IV .Q0M [facility] Rx#: [id number] Tube Feeding 40 TPN/PPN 30 TPN 30 Other 30 Output: Urine 4415 611 0372 Other: Voiding Method Indwelling Catheter Indwelling Catheter Indwelling Catheter ABP, PAP, CO, CI - Last Documented Arterial Blood Pressure 148/58 - Exam -GENERAL: The patient is intubated and sedated HEENT: Pupils are round and equally reacting to light. EOMI. No scleral icterus. No conjunctival pallor. Normocephalic, atraumatic. No pharyngeal erythema. No thyromegaly. CARDIOVASCULAR: S1 and S2 present. No murmurs, rubs, or gallops. -PULMONARY: Chest is clear to auscultation, no wheezing . bilateral crepitation Abdomen: soft, nontender, nondistended, normoactive bowel sounds. No palpable organomegaly. MUSCULOSKELETAL: No joint swelling or deformity. EXTREMITIES: No cyanosis, clubbing, or pedal edema. NEUROLOGICAL: Gross neurological examination did not reveal any focal deficits. SKIN: No rashes. no petechiae. - Labs CBC & Chem 7: 02/17/21 04:50 02/17/21 04:30 Labs: Abnormal Lab Results - Last 24 Hours (Table) 02/16/21 02/16/21 02/16/21 Range/Units 11:20 11:34 17:18 APTT 49.5 H (22.0-30.0) sec ABG pH (7.35-7.45) ABG pCO2 (35-45) mmHg ABG pO2 (83-108) mmHg ABG HCO3 (21-25) mmol/L ABG Total CO2 (19-24) mmol/L ABG O2 Saturation (94-97) % Chloride (98-107) mmol/L BUN (9-20) mg/dL Glucose (74-99) mg/dL POC Glucose (mg/dL) 253 H 215 H (75-99) mg/dL Total Bilirubin (0.2-1.3) mg/dL AST (17-59) U/L ALT (4-49) U/L Lactate Dehydrogenase (313-618) U/L C-Reactive Protein (<1.0) mg/dL Total Protein (6.3-8.2) g/dL Albumin (3.5-5.0) g/dL 02/16/21 02/17/21 02/17/21 Range/Units 23:34 04:30 06:04 APTT (22.0-30.0) sec ABG pH (7.35-7.45) ABG pCO2 46 H (35-45) mmHg ABG pO2 62 L (83-108) mmHg ABG HCO3 27 H (21-25) mmol/L ABG Total CO2 29 H (19-24) mmol/L ABG O2 Saturation 92.1 L (94-97) % Chloride 109 H (98-107) mmol/L BUN 75 H (9-20) mg/dL Glucose 217 H (74-99) mg/dL POC Glucose (mg/dL) 179 H (75-99) mg/dL Total Bilirubin 1.9 H (0.2-1.3) mg/dL AST 120 H (17-59) U/L ALT 150 H (4-49) U/L Lactate Dehydrogenase 1622 H (313-618) U/L C-Reactive Protein 16.7 H (<1.0) mg/dL Total Protein 5.8 L (6.3-8.2) g/dL Albumin 2.6 L (3.5-5.0) g/dL 02/17/21 02/17/21 02/17/21 Range/Units 06:55 07:06 09:21 APTT 53.2 H (22.0-30.0) sec ABG pH 7.33 L (7.35-7.45) ABG pCO2 53 H (35-45) mmHg ABG pO2 73 L (83-108) mmHg ABG HCO3 28 H (21-25) mmol/L ABG Total CO2 29 H (19-24) mmol/L ABG O2 Saturation 93.8 L (94-97) % Chloride (98-107) mmol/L BUN (9-20) mg/dL Glucose (74-99) mg/dL POC Glucose (mg/dL) 174 H (75-99) mg/dL Total Bilirubin (0.2-1.3) mg/dL AST (17-59) U/L ALT (4-49) U/L Lactate Dehydrogenase (313-618) U/L C-Reactive Protein (<1.0) mg/dL Total Protein (6.3-8.2) g/dL Albumin (3.5-5.0) g/dL Assessment and Plan Assessment: Bilateral Covid pneumonia Acute hypoxic respiratory failure, requiring mechanical ventilation, status post tracheostomy and PEG tube placement on 02/14 Increased inflammatory markers Right pneumothorax status post chest tube placement on 02/17 Chronic kidney disease, stage III Acute UTI, finished treatment history of DVT currently on anticoagulation with Coumadin. Morbid obesity with BMI 46.7 Chronic low back pain COPD/asthma Osteoarthritis Plan: This is a pleasant 60 years old male who presents with Bilateral Covid pneumonia and hypoxia Continue with vitamin C, vitamin D, and zinc. Continue with dexamethasone Pulmonary team consult Continue with mechanical ventilation for critical care team. Status post tracheostomy and PEG tube placement on 02/14 Heparin drip for DVT Right-sided chest tube Labs and medication were reviewed.. Continue same treatment. Continue with symptomatic treatment. Resume home medication. Monitor lytes and vitals. DVT and GI prophylaxis. Further recommendations as per clinical course of the patient DVT prophylaxis: warfarin/Heparin drip GI Prophylaxis: Ppi Prognosis is guarded
[2021-02-17] MEDS: 1: MVI, ADULT NO.4 WITH VIT K 10 ML, TRACE (CONC-1ML/DOSE) 1 ML in AMINO ACID 5%-D15W+LY IV SCH ×3 (23:21)
[2021-02-17 23:52] LABS: Glucose,Whole Blood 305 mg/dL (75-99)
[2021-02-18] MEDS: ARTIFICIAL TEARS-HYPROMELLOSE DROPS 15 ML BTL BOTH EYES SCH ×6 (00:42→21:13)
[2021-02-18 00:47] LABS: Glucose,Whole Blood 255 mg/dL (75-99)
[2021-02-18] MEDS: INSULIN ASPART (NovoLOG) 100 UNIT/ML VIAL SQ SCH ×4 (00:51→18:26)
[2021-02-18] MEDS: HEPARIN SOD,PORK IN 0.45% NACL 25,000 UNIT in 0.45% NACL 1 250ML.BAG IV SCH ×2 (00:51→16:49)
[2021-02-18] MEDS: fentaNYL (PF). 1,000 MCG in SODIUM CHLORIDE 0.9% 80 ML IV SCH ×4 (02:42→22:23)
[2021-02-18] MEDS: NOREPINEPHRINE 4 MG in SODIUM CHLORIDE 0.9% 250 ML IV SCH ×4 (02:58→16:29)
[2021-02-18] MEDS: allopurinoL 300 MG TAB PO SCH ×3 (02:59→22:02)
[2021-02-18 05:17] LABS: Glucose,Whole Blood 220 mg/dL (75-99)
[2021-02-18 05:19] LABS: ABG Base Excess 5.2 mmol/L; ABG HCO3 30 mmol/L (21-25); ABG Oxygen Saturation 97.2 % (94-97); ABG PCO2 50 mmHg (35-45); ABG PH 7.39 (7.35-7.45); ABG PO2 88 mmHg (83-108); ABG TCO2 32 mmol/L (19-24); Allen Test Performed? Yes
[2021-02-18 05:46] LABS: African American GFR (CKD) >90 (>60 ml/min/1.73 sqM); Anion Gap 5 mmol/L; Blood Urea Nitrogen 68 mg/dL (9-20); Calcium 8.7 mg/dL (8.4-10.2); Carbon Dioxide 29 mmol/L (22-30); Chloride 111 mmol/L (98-107); Glucose 283 mg/dL (74-99); Magnesium 2.1 mg/dL (1.6-2.3); Non-African American GFR(CKD) 87 (>60 ml/min/1.73 sqM); Phosphorus 3.8 mg/dL (2.5-4.5); Potassium 4.4 mmol/L (3.5-5.1); Sodium 145 mmol/L (137-145)
[2021-02-18 06:18] LABS: HCT 41.2 % (39.0-53.0); HGB 13.2 gm/dL (13.0-17.5); Hypochromasia Slight; MCH 32.8 pg (25.0-35.0); MCV 102.5 fL (80.0-100.0); Macrocytosis Slight; Mean Platelet Volume 9.7; Platelet Count 181 k/uL (150-450); RBC 4.02 m/uL (4.30-5.90); RDW 13.9 % (11.5-15.5); WBC 18.1 k/uL (3.8-10.6)
--- NOTE | 2021-02-18 07:29 | P.PN ---
Subjective Progress Note Date: 02/18/21 61-year-old male patient was being seen in follow-up today. The patient remains on a mechanical ventilator due to COVID 19 related pneumonia. The patient has been intubated for an extended period of time and the patient had a tracheostomy tube inserted on 02/14/2021 and for now the patient is a Bivona tracheostomy tube in place. Noted on yesterday's evaluation, the patient was noted to have a large right-sided pneumothorax. Chest tube was inserted and there was reexpansion of the right lung. The chest was had with however posterior. A repeat chest x-ray was done this morning. There is obviously a recurrence in the right-sided pneumothorax. Chest tube is to be repositioned. There is dif fuse infiltrates in the left lung. Tracheostomy tube is in good location and the patient has also a subcutaneous emphysema on the right. The patient remains on a mechanical ventilator. This morning, he is sedated and he is currently on propofol running at 50 mcg/kg per minute and fentanyl is running at 1 mcg/kg/h. The patient remains on a mechanical ventilator on assist control mode. The rasta ent is currently on a tidal volume of 450 with an FiO2 of 70% and a PEEP of 12 and the rate of 30. Morning chest x-ray was noted and there is a recurrence in the right-sided pneumothorax. Her blood gases from today shows a pH of 7.39 with a pCO2 of 50 and a pO2 of 88. Hemodynamically, the patient is still on norepinephrine infusion which is currently running at 0.04 mcg/kg per minute. The patient's IV fluids is currently running at KVO. He continues to have extensive amount of edema in all 4 extremities. He was started on diuretics yesterday and the patient is currently receiving Lasix 40 mg IV every 12 hours. Overall fluid balance has been added hours a negative fluid balance of at least 2.4 L over the next 24 hours. The patient remains nothing by mouth due to inability to insert a or GI or an NG tube. There was also inability to insert a PEG tube. The patient has been on Diprivan which is currently running at 70 mL an hour. The patient remains on Decadron. On his blood work today he has a white cell count of 18 with a hemoglobin of 13.2. Note that his white cell count is comparable to yesterday. The patient remains on IV heparin regarding his lower extremity DVT in the patient's PTT is therapeutic for now. The BUN is at 68 with a creatinine of 0.9, electrolytes are within normal limits. His LDH level from yesterday was 1622 with a CRP of 16.7. Occult stool was positive. Sputum samples collected on 02/06/2021 was negative. Active issue for now is a recurrent right-sided pneumothorax and a chest tube will be obviously reposition. Objective - Vital Signs Vital signs: Vital Signs Temp 99.0 F 02/18/21 00:00 Pulse 88 02/18/21 02:00 Resp 32 H 02/18/21 02:00 BP 131/50 02/12/21 18:56 Pulse Ox 96 02/18/21 02:00 Intake & Output 02/17/21 02/17/21 02/18/21 06:59 18:59 06:59 Intake Total 3902.002 5710.836 826.977 Output Total 805 2715 1600 Balance 1108.663 -1652.164 -773.023 Weight 158.7 kg 158.7 kg 158.1 kg Intake: IV 1136 276 161 Dextrose 5% in Water 1, 1100 240 140 000 ml @ 20 mls/hr IV . Q24H [facility] Rx#:[id number] presssure bag 36 36 21 Intake, IV Titration 777.663 786.836 665.977 Amount Amino Acid 5%-D15w+Lytes* 30 E* 1,000 ml @ 30 mls/hr IV .BY DURATION [facility] Rx#: [id number] Dextrose 5% in Water 1, 100 000 ml @ 20 mls/hr IV . Q24H [facility] Rx#:[id number] Heparin Sod,Pork in 0.45% 238.44 244.699 250 NaCl 25,000 unit In 0.45 % NaCl 1 250ml.bag @ 6.34 UNITS/KG/HR 9.998 mls/hr IV .Q24H [facility] Rx#: [id number] Norepinephrine 4 mg In 38.374 180.222 166.877 Sodium Chloride 0.9% 250 ml @ 0.05 MCG/KG/MIN 31. 453 mls/hr IV .Q8H5M [facility] Rx#:[id number] fentaNYL (PF). 1,000 mcg 200 169.346 100 In Sodium Chloride 0.9% 80 ml @ 0.5 MCG/KG/HR 8. 255 mls/hr IV .Q12H7M [facility] Rx#:[id number] propofoL 1,000 mg In 170.849 192.569 149.100 Empty Bag 1 bag @ Titrate IV .Q0M [facility] Rx#: [id number] Output: Chest Tube Drainage 210 50 Chest Tube Right 210 50 Urine 805 2505 1550 Other: Voiding Method Indwelling Catheter Indwelling Catheter # Bowel Movements 1 ABP, PAP, CO, CI - Last Documented Arterial Blood Pressure 91/49 - Exam No acute distress, sedated, with a midline tracheostomy tube. The patient has a Bivona #8 tracheostomy tube which is well secured in place HEENT examination is grossly unremarkable. Neck supple. Full range of motion. No adenopathy thyromegaly or neck vein distention. Cardiovascular examination reveals regular rhythm rate. S1-S2 normal. No S3 or S4. No discernible murmur noted. Heart rate is 52 bpm. Heart sounds are diminished. Lungs reveal coarse bilateral rhonchi. No wheezes or crackles. . Marked dim inished breath sounds on the right and the patient has a right-sided chest tube in place, no evidence of any air leak Abdomen soft bowel sounds are heard. No masses or tenderness. Extremities reveal chronic venous stasis changes, and bilateral lateral lower extremity edema. No cyanosis or clubbing. Skin is without rash or lesion. Neurologic examination cannot be adequately assessed as the patient's currently sedated. - Labs CBC & Chem 7: 02/18/21 04:35 02/18/21 04:35 Labs: Abnormal Lab Results - Last 24 Hours (Table) 02/17/21 02/17/21 02/17/21 Range/Units 04:50 06:55 07:06 WBC 17.0 H (3.8-10.6) k/uL RBC (4.30-5.90) m/uL MCV 104.6 H (80.0-100.0) fL MCHC 29.6 L (31.0-37.0) g/dL Plt Count 142 L (150-450) k/uL Neutrophils # 15.8 H (1.3-7.7) k/uL Lymphocytes # 0.4 L (1.0-4.8) k/uL APTT 53.2 H (22.0-30.0) sec ABG pH (7.35-7.45) ABG pCO2 (35-45) mmHg ABG pO2 (83-108) mmHg ABG HCO3 (21-25) mmol/L ABG Total CO2 (19-24) mmol/L ABG O2 Saturation (94-97) % Chloride (98-107) mmol/L BUN (9-20) mg/dL Glucose (74-99) mg/dL POC Glucose (mg/dL) 174 H (75-99) mg/dL 02/17/21 02/17/21 02/17/21 Range/Units 09:21 11:45 18:46 WBC (3.8-10.6) k/uL RBC (4.30-5.90) m/uL MCV (80.0-100.0) fL MCHC (31.0-37.0) g/dL Plt Count (150-450) k/uL Neutrophils # (1.3-7.7) k/uL Lymphocytes # (1.0-4.8) k/uL APTT (22.0-30.0) sec ABG pH 7.33 L (7.35-7.45) ABG pCO2 53 H (35-45) mmHg ABG pO2 73 L (83-108) mmHg ABG HCO3 28 H (21-25) mmol/L ABG Total CO2 29 H (19-24) mmol/L ABG O2 Saturation 93.8 L (94-97) % Chloride (98-107) mmol/L BUN (9-20) mg/dL Glucose (74-99) mg/dL POC Glucose (mg/dL) 187 H 279 H (75-99) mg/dL 02/17/21 02/18/21 02/18/21 Range/Units 23:50 00:46 04:35 WBC (3.8-10.6) k/uL RBC (4.30-5.90) m/uL MCV (80.0-100.0) fL MCHC (31.0-37.0) g/dL Plt Count (150-450) k/uL Neutrophils # (1.3-7.7) k/uL Lymphocytes # (1.0-4.8) k/uL APTT (22.0-30.0) sec ABG pH (7.35-7.45) ABG pCO2 (35-45) mmHg ABG pO2 (83-108) mmHg ABG HCO3 (21-25) mmol/L ABG Total CO2 (19-24) mmol/L ABG O2 Saturation (94-97) % Chloride 111 H (98-107) mmol/L BUN 68 H (9-20) mg/dL Glucose 283 H (74-99) mg/dL POC Glucose (mg/dL) 305 H 255 H (75-99) mg/dL 02/18/21 02/18/21 02/18/21 Range/Units 04:35 04:35 05:16 WBC 18.1 H (3.8-10.6) k/uL RBC 4.02 L (4.30-5.90) m/uL MCV 102.5 H (80.0-100.0) fL MCHC (31.0-37.0) g/dL Plt Count (150-450) k/uL Neutrophils # (1.3-7.7) k/uL Lymphocytes # (1.0-4.8) k/uL APTT 47.4 H (22.0-30.0) sec ABG pH (7.35-7.45) ABG pCO2 (35-45) mmHg ABG pO2 (83-108) mmHg ABG HCO3 (21-25) mmol/L ABG Total CO2 (19-24) mmol/L ABG O2 Saturation (94-97) % Chloride (98-107) mmol/L BUN (9-20) mg/dL Glucose (74-99) mg/dL POC Glucose (mg/dL) 220 H (75-99) mg/dL 02/18/21 Range/Units 06:11 WBC (3.8-10.6) k/uL RBC (4.30-5.90) m/uL MCV (80.0-100.0) fL MCHC (31.0-37.0) g/dL Plt Count (150-450) k/uL Neutrophils # (1.3-7.7) k/uL Lymphocytes # (1.0-4.8) k/uL APTT (22.0-30.0) sec ABG pH (7.35-7.45) ABG pCO2 50 H (35-45) mmHg ABG pO2 (83-108) mmHg ABG HCO3 30 H (21-25) mmol/L ABG Total CO2 32 H (19-24) mmol/L ABG O2 Saturation 97.2 H (94-97) % Chloride (98-107) mmol/L BUN (9-20) mg/dL Glucose (74-99) mg/dL POC Glucose (mg/dL) (75-99) mg/dL Assessment and Plan Plan: 1 acute COVID 19 related pneumonia. The patient is presenting with worsening s hortness of breath of 5 days' duration and the patient came in with severe hypoxic history failure currently on 100% nonrebreather facemask. Patient is not vaccinated. He is exposed to several other household who have COVID 19. The patient has diffuse bilateral pulmonary infiltrates consistent with COVID 19 related pneumonia. The patient was treated with steroids and Baricitinib and the patient is status post intubation and mechanical ventilation on 02/05/2021, Status post tracheostomy on 02/14/2021. PEG tube could not be inserted. On today's evaluation, the patient was found to have a large right-sided pneumothorax and the patient will have a chest tube placed. Along the same complication, the patient became hypotensive overnight and the patient is currently on a low-dose norepinephrine infusion for blood pressure support running at 0.004 mcg/kg per minute. After achieving a successful reexpansion of the right lung, the chest x-ray from today showing a recurrent right-sided pneumothorax. Chest tube is directed posterior and he needs to be repositioned. No evidence of air leak and as such this current chest tube is not functional. Repositioning of the chest tube will be done. Chest x-ray was noted. Blood gases was noted. The patient remains sedated with combination of propofol and fentanyl. He is not paralyzed at this point in time. 2 acute hypoxic respiratory failure secondary to above 3 acute kidney injury, likely secondary to intravascular volume depletion/dehydration, recovered. 4 Bilateral lower extremity DVT, diagnosed on 02/12/2021. The patient remains on IV heparin. 5 previous history of DVT and the patient has been maintained on long-term articulation with warfarin, currently on IV heparin 6 obesity with a BMI of 44.1 7 chronic back pain 8 history of COPD/asthma 9 previous history of pancreatitis 10 hypertension 11 chronic pain involving the back and the patient is demented on a combination of Voltaren gel, Flexeril, Percocet and nonsteroidal anti-inflammatory medications including Mobic. 12 acute right-sided pneumothorax, a complication of COVID 19 related pneumonia, expected complication 13 acute hypotension secondary to above 14 TPN for nutritional support, unable to insert an OG or infected with this patient. Plan Keep the patient sedated with a combination of propofol and fentanyl Repositioned and reinsert a right-sided chest tube insertion Obtain a follow-up chest x-ray post chest tube insertion Monitor hemodynamics and gradually wean off the norepinephrine infusion GI service to insert a NG via a scope and if successful which should be able to get the patient off the TPN, the tube insertion will be done today Patient remains on Decadron 6 mg IV every 24 hours Otherwise no major changes condition. Prognosis remains poor baseline above-mentioned comorbidities. We'll continue to follow. Repeated blood gases post chest tube insertion and decide if there is any role for further weaning. critical and prognosis poor based above- mentioned comorbidities. We'll continue to follow. Evaluation was done and more than 30 minutes. Time with Patient: Greater than 30
--- NOTE | 2021-02-18 08:09 | XR ---
EXAMINATION TYPE: XR chest 1V DATE OF EXAM: 02/18/2021 COMPARISON: Chest x-ray same dated earlier time HISTORY: Chest tube insertion TECHNIQUE: Single frontal view of the chest is obtained. FINDINGS: This been interval placement of right-sided chest tube, interval improvement in right-side d pneumothorax and atelectasis. There is extensive subcutaneous emphysema. Patient is rotated. No oth er significant interval change. IMPRESSION: Interval chest tube placement as described.
[2021-02-18] MEDS: CHOLECALCIFEROL 25 MCG (1000 IU) TABLET PO SCH (08:11)
[2021-02-18] MEDS: GABAPENTIN 400 MG CAP PO SCH ×2 (08:11→22:02)
[2021-02-18] MEDS: ZINC SULFATE 220 MG CAP PO SCH (08:12)
[2021-02-18] MEDS: ALBUTEROL HFA INHALER INHALATION PRN ×4 (08:15→19:18)
--- NOTE | 2021-02-18 08:17 | XR ---
EXAMINATION TYPE: XR chest 1V portable DATE OF EXAM: 02/18/2021 COMPARISON: Chest x-ray 02/18/2021 HISTORY: Chest tube insertion, reposition TECHNIQUE: Single frontal view of the chest is obtained. FINDINGS: Findings are similar to prior exam. Right-sided chest tube is in place, right sided jugula r central venous catheter, tracheostomy tube again noted. There is some improvement in the right-side d pneumothorax, small right-sided pneumothorax persists. Entire left chest is not included on exam. C ardiomediastinal silhouette is thought to be stable, patient is rotated. There is subcutaneous emphys fei. IMPRESSION: There is some improvement in the right-sided pneumothorax.
[2021-02-18] MEDS: CHLORHEXIDINE GLUCONATE 15 ML CUP MUCOUS MEM SCH ×2 (08:30→21:56)
[2021-02-18] MEDS: DEXTROSE 5% IN WATER 1,000 ML IV SCH (08:31)
--- NOTE | 2021-02-18 08:32 | P.PN ---
Subjective Patient is seen in follow-up for acute kidney injury. Renal function back to baseline. Sodium level 145 today. Receiving TPN. On Levophed. Nonoliguric. On IV Lasix. Scheduled for PEG tube placement today. Vital signs are stable. HEENT: Tracheostomy noted. HEART: Rate and Rhythm are regular. EXTREMITITES: 2+ edema. Blisters noted. Objective - Vital Signs Vital signs: Vital Signs Temp 98.7 F 02/18/21 04:00 Pulse 91 02/18/21 06:30 Resp 30 H 02/18/21 06:30 BP 131/50 02/12/21 18:56 Pulse Ox 93 L 02/18/21 06:30 Intake & Output 02/17/21 02/18/21 02/18/21 18:59 06:59 18:59 Intake Total 1062.836 941.977 107.570 Output Total 2715 2300 Balance -1652.164 -1358.023 107.570 Weight 158.7 kg 158.1 kg Intake: IV 276 276 Dextrose 5% in Water 1, 240 240 000 ml @ 20 mls/hr IV . Q24H [facility] Rx#:[id number] presssure bag 36 36 Intake, IV Titration 786.836 665.977 107.570 Amount Heparin Sod,Pork in 0.45% 244.699 250 NaCl 25,000 unit In 0.45 % NaCl 1 250ml.bag @ 6.34 UNITS/KG/HR 9.998 mls/hr IV .Q24H [facility] Rx#: [id number] Norepinephrine 4 mg In 180.222 166.877 107.570 Sodium Chloride 0.9% 250 ml @ 0.05 MCG/KG/MIN 31. 453 mls/hr IV .Q8H5M [facility] Rx#:[id number] fentaNYL (PF). 1,000 mcg 169.346 100 In Sodium Chloride 0.9% 80 ml @ 0.5 MCG/KG/HR 8. 255 mls/hr IV .Q12H7M [facility] Rx#:[id number] propofoL 1,000 mg In 192.569 149.100 Empty Bag 1 bag @ Titrate IV .Q0M [facility] Rx#: [id number] Output: Chest Tube Drainage 210 50 Chest Tube Right 210 50 Urine 2505 2250 Other: Voiding Method Indwelling Catheter Indwelling Catheter # Bowel Movements 1 ABP, PAP, CO, CI - Last Documented Arterial Blood Pressure 84/51 - Labs CBC & Chem 7: 02/18/21 04:35 02/18/21 04:35 Labs: Abnormal Lab Results - Last 24 Hours (Table) 02/17/21 02/17/21 02/17/21 Range/Units 04:50 09:21 11:45 WBC 17.0 H (3.8-10.6) k/uL RBC (4.30-5.90) m/uL MCV 104.6 H (80.0-100.0) fL MCHC 29.6 L (31.0-37.0) g/dL Plt Count 142 L (150-450) k/uL Neutrophils # 15.8 H (1.3-7.7) k/uL Lymphocytes # 0.4 L (1.0-4.8) k/uL APTT (22.0-30.0) sec ABG pH 7.33 L (7.35-7.45) ABG pCO2 53 H (35-45) mmHg ABG pO2 73 L (83-108) mmHg ABG HCO3 28 H (21-25) mmol/L ABG Total CO2 29 H (19-24) mmol/L ABG O2 Saturation 93.8 L (94-97) % Chloride (98-107) mmol/L BUN (9-20) mg/dL Glucose (74-99) mg/dL POC Glucose (mg/dL) 187 H (75-99) mg/dL 02/17/21 02/17/21 02/18/21 Range/Units 18:46 23:50 00:46 WBC (3.8-10.6) k/uL RBC (4.30-5.90) m/uL MCV (80.0-100.0) fL MCHC (31.0-37.0) g/dL Plt Count (150-450) k/uL Neutrophils # (1.3-7.7) k/uL Lymphocytes # (1.0-4.8) k/uL APTT (22.0-30.0) sec ABG pH (7.35-7.45) ABG pCO2 (35-45) mmHg ABG pO2 (83-108) mmHg ABG HCO3 (21-25) mmol/L ABG Total CO2 (19-24) mmol/L ABG O2 Saturation (94-97) % Chloride (98-107) mmol/L BUN (9-20) mg/dL Glucose (74-99) mg/dL POC Glucose (mg/dL) 279 H 305 H 255 H (75-99) mg/dL 02/18/21 02/18/21 02/18/21 Range/Units 04:35 04:35 04:35 WBC 18.1 H (3.8-10.6) k/uL RBC 4.02 L (4.30-5.90) m/uL MCV 102.5 H (80.0-100.0) fL MCHC (31.0-37.0) g/dL Plt Count (150-450) k/uL Neutrophils # (1.3-7.7) k/uL Lymphocytes # (1.0-4.8) k/uL APTT 47.4 H (22.0-30.0) sec ABG pH (7.35-7.45) ABG pCO2 (35-45) mmHg ABG pO2 (83-108) mmHg ABG HCO3 (21-25) mmol/L ABG Total CO2 (19-24) mmol/L ABG O2 Saturation (94-97) % Chloride 111 H (98-107) mmol/L BUN 68 H (9-20) mg/dL Glucose 283 H (74-99) mg/dL POC Glucose (mg/dL) (75-99) mg/dL 02/18/21 02/18/21 Range/Units 05:16 06:11 WBC (3.8-10.6) k/uL RBC (4.30-5.90) m/uL MCV (80.0-100.0) fL MCHC (31.0-37.0) g/dL Plt Count (150-450) k/uL Neutrophils # (1.3-7.7) k/uL Lymphocytes # (1.0-4.8) k/uL APTT (22.0-30.0) sec ABG pH (7.35-7.45) ABG pCO2 50 H (35-45) mmHg ABG pO2 (83-108) mmHg ABG HCO3 30 H (21-25) mmol/L ABG Total CO2 32 H (19-24) mmol/L ABG O2 Saturation 97.2 H (94-97) % Chloride (98-107) mmol/L BUN (9-20) mg/dL Glucose (74-99) mg/dL POC Glucose (mg/dL) 220 H (75-99) mg/dL Assessment and Plan Plan: Assessment: 1. Acute kidney injury secondary to ATN secondary to septic shock. Improved. Creatinine 0.94 today. Nonoliguric. 2. Acute hypoxic respiratory failure secondary to COVID-19 pneumonia. 3. Hypernatremia from lack of oral water intake. Improved. 4. Lower extremity edema. 5. Pneumothorax. Chest tube inserted. Plan: Receiving TPN. Maintain IV Lasix 40 mg twice daily. Wean FiO2. Scheduled for PEG tube placement today.
--- NOTE | 2021-02-18 09:03 | XR ---
EXAMINATION TYPE: XR chest 1V portable DATE OF EXAM: 02/18/2021 COMPARISON: 02/17/2021 HISTORY: Chest tube insertion TECHNIQUE: Single frontal view of the chest is obtained. FINDINGS: Large right pneumothorax. Report called to patient's nurse. Chest tube is noted with subcu taneous emphysema. Right-sided central line tracheostomy tube. Left-sided infiltrates noted IMPRESSION: 1. Large right-sided pneumothorax. 2. Diffuse left-sided interstitial infiltrate stable
[2021-02-18] MEDS: MIDODRINE 5 MG TAB PO SCH ×3 (09:19→18:26)
[2021-02-18] MEDS: ASCORBIC ACID 500 MG TAB PO SCH (09:19)
[2021-02-18] MEDS: 1: MVI, ADULT NO.4 WITH VIT K 10 ML, TRACE (CONC-1ML/DOSE) 1 ML in AMINO ACID 5%-D20W+LY IV SCH ×6 (09:35→15:00)
[2021-02-18] MEDS: PANTOPRAZOLE 40 MG/10 ML VIAL IVP SCH (09:36)
[2021-02-18] MEDS: DEXAMETHASONE SOD PHOSPHATE 10 MG/ML 1 ML VIAL IVP SCH (09:36)
[2021-02-18] MEDS: FUROSEMIDE 10 MG/ML 4 ML VIAL IV SCH ×2 (09:36→21:56)
--- NOTE | 2021-02-18 11:04 | XR ---
EXAMINATION TYPE: XR abdomen 1V DATE OF EXAM: 02/18/2021 COMPARISON: NONE HISTORY: NG tube placement TECHNIQUE: One view abdominal series FINDINGS: Limited exam of the lower chest and upper abdomen demonstrates the NG tube to the level of the gastri c antrum. There is bilateral infiltrate and pleural effusion. Tracheostomy tube noted. Hypertrophic a nd degenerative changes of the spine. IMPRESSION: 1. NG tube appears to course to the level of the gastric antrum. 2. Bilateral lower lobe infiltrate
[2021-02-18 11:43] LABS: Glucose,Whole Blood 238 mg/dL (75-99)
--- NOTE | 2021-02-18 13:02 | P.PN ---
<Marjorie Oliver - Last Filed: 02/18/21 12:53> Subjective Progress Note Date: 02/18/21 CHIEF COMPLAINT: COVID-19 pneumonia HISTORY OF PRESENT ILLNESS: Patient in the ICU on mechanical ventilation. He is status post tracheostomy placement. PEG tube placement was unsuccessful. Patient is currently on TPN for nutrition support. Nursing staff was able to place NG tube today. PHYSICAL EXAM: VITAL SIGNS: Reviewed. GENERAL: Well-developed in no acute distress. HEENT: No sclera icterus. Moist buccal mucosa. Head is atraumatic, normocephalic. Tracheostomy site clean dry and intact ABDOMEN: Soft. Nondistended. Nontender. NEUROLOGIC: Intubated and sedated ASSESSMENT: 1. Acute hypoxic respiratory failure secondary to COVID-19 pneumonia status post tracheostomy placement 2. Severe protein calorie malnutrition 3. Bilateral lower extremity DVT on IV heparin PLAN: -Continue ICU management -Continue supportive care -Consult dietitian to start tube feeds through the NG tube Physician Household Refrigeration Mechanic note has been reviewed by physician. Signing provider agrees with the documented findings, assessment, and plan of care. Objective - Vital Signs Vital signs: Vital Signs Temp 99.9 F H 02/18/21 08:00 Pulse 101 H 02/18/21 11:00 Resp 30 H 02/18/21 11:00 BP 131/50 02/12/21 18:56 Pulse Ox 95 02/18/21 11:00 Intake & Output 02/17/21 02/18/21 02/18/21 18:59 06:59 18:59 Intake Total 1062.836 941.977 408.159 Output Total 2715 2300 228 Balance -1652.164 -1358.023 180.159 Weight 158.7 kg 158.1 kg Intake: IV 276 276 69 Dextrose 5% in Water 1, 240 240 60 000 ml @ 20 mls/hr IV . Q24H [facility] Rx#:[id number] presssure bag 36 36 9 Intake, IV Titration 786.836 665.977 339.159 Amount Heparin Sod,Pork in 0.45% 244.699 250 NaCl 25,000 unit In 0.45 % NaCl 1 250ml.bag @ 6.34 UNITS/KG/HR 9.998 mls/hr IV .Q24H [facility] Rx#: [id number] Norepinephrine 4 mg In 180.222 166.877 165.339 Sodium Chloride 0.9% 250 ml @ 0.05 MCG/KG/MIN 31. 453 mls/hr IV .Q8H5M [facility] Rx#:[id number] fentaNYL (PF). 1,000 mcg 169.346 100 95.764 In Sodium Chloride 0.9% 80 ml @ 0.5 MCG/KG/HR 8. 255 mls/hr IV .Q12H7M [facility] Rx#:[id number] propofoL 1,000 mg In 192.569 149.100 78.056 Empty Bag 1 bag @ Titrate IV .Q0M [facility] Rx#: [id number] Output: Chest Tube Drainage 210 50 Chest Tube Right 210 50 Urine 2505 2250 228 Other: Voiding Method Indwelling Catheter Indwelling Catheter Indwelling Catheter # Bowel Movements 1 ABP, PAP, CO, CI - Last Documented Arterial Blood Pressure 106/52 - Labs CBC & Chem 7: 02/18/21 04:35 02/18/21 12:05 Labs: Abnormal Lab Results - Last 24 Hours (Table) 02/17/21 02/17/21 02/17/21 Range/Units 04:50 18:46 23:50 WBC 17.0 H (3.8-10.6) k/uL RBC (4.30-5.90) m/uL MCV 104.6 H (80.0-100.0) fL MCHC 29.6 L (31.0-37.0) g/dL Plt Count 142 L (150-450) k/uL Neutrophils # 15.8 H (1.3-7.7) k/uL Lymphocytes # 0.4 L (1.0-4.8) k/uL APTT (22.0-30.0) sec ABG pCO2 (35-45) mmHg ABG HCO3 (21-25) mmol/L ABG Total CO2 (19-24) mmol/L ABG O2 Saturation (94-97) % Chloride (98-107) mmol/L BUN (9-20) mg/dL Glucose (74-99) mg/dL POC Glucose (mg/dL) 279 H 305 H (75-99) mg/dL Procalcitonin (0.02-0.09) ng/mL 02/18/21 02/18/21 02/18/21 Range/Units 00:46 04:35 04:35 WBC 18.1 H (3.8-10.6) k/uL RBC 4.02 L (4.30-5.90) m/uL MCV 102.5 H (80.0-100.0) fL MCHC (31.0-37.0) g/dL Plt Count (150-450) k/uL Neutrophils # (1.3-7.7) k/uL Lymphocytes # (1.0-4.8) k/uL APTT (22.0-30.0) sec ABG pCO2 (35-45) mmHg ABG HCO3 (21-25) mmol/L ABG Total CO2 (19-24) mmol/L ABG O2 Saturation (94-97) % Chloride 111 H (98-107) mmol/L BUN 68 H (9-20) mg/dL Glucose 283 H (74-99) mg/dL POC Glucose (mg/dL) 255 H (75-99) mg/dL Procalcitonin (0.02-0.09) ng/mL 02/18/21 02/18/21 02/18/21 Range/Units 04:35 04:35 05:16 WBC (3.8-10.6) k/uL RBC (4.30-5.90) m/uL MCV (80.0-100.0) fL MCHC (31.0-37.0) g/dL Plt Count (150-450) k/uL Neutrophils # (1.3-7.7) k/uL Lymphocytes # (1.0-4.8) k/uL APTT 47.4 H (22.0-30.0) sec ABG pCO2 (35-45) mmHg ABG HCO3 (21-25) mmol/L ABG Total CO2 (19-24) mmol/L ABG O2 Saturation (94-97) % Chloride (98-107) mmol/L BUN (9-20) mg/dL Glucose (74-99) mg/dL POC Glucose (mg/dL) 220 H (75-99) mg/dL Procalcitonin 0.63 H (0.02-0.09) ng/mL 02/18/21 02/18/21 Range/Units 06:11 11:42 WBC (3.8-10.6) k/uL RBC (4.30-5.90) m/uL MCV (80.0-100.0) fL MCHC (31.0-37.0) g/dL Plt Count (150-450) k/uL Neutrophils # (1.3-7.7) k/uL Lymphocytes # (1.0-4.8) k/uL APTT (22.0-30.0) sec ABG pCO2 50 H (35-45) mmHg ABG HCO3 30 H (21-25) mmol/L ABG Total CO2 32 H (19-24) mmol/L ABG O2 Saturation 97.2 H (94-97) % Chloride (98-107) mmol/L BUN (9-20) mg/dL Glucose (74-99) mg/dL POC Glucose (mg/dL) 238 H (75-99) mg/dL Procalcitonin (0.02-0.09) ng/mL <Benjamin Mena - Last Filed: 02/18/21 15:36> Subjective Patient remains on a ventilator. Nasogastric tube was able to be placed earlier today. May utilize for feedings. Continue supportive care. Will see again on 02/20. Please call if needed in the interim. Objective - Vital Signs Vital signs: Vital Signs Temp 100.2 F H 02/18/21 12:00 Pulse 101 H 02/18/21 15:00 Resp 30 H 02/18/21 15:00 BP 131/50 02/12/21 18:56 Pulse Ox 95 02/18/21 15:00 Intake & Output 02/17/21 02/18/21 02/18/21 18:59 06:59 18:59 Intake Total 1062.836 941.977 663.196 Output Total 2715 2300 1580 Balance -1652.164 -1358.023 -916.804 Weight 158.7 kg 158.1 kg 158.1 kg Intake: IV 276 276 207 Dextrose 5% in Water 1, 240 240 180 000 ml @ 20 mls/hr IV . Q24H [facility] Rx#:[id number] presssure bag 36 36 27 Intake, IV Titration 786.836 665.977 456.196 Amount Heparin Sod,Pork in 0.45% 244.699 250 NaCl 25,000 unit In 0.45 % NaCl 1 250ml.bag @ 6.34 UNITS/KG/HR 9.998 mls/hr IV .Q24H [facility] Rx#: [id number] Norepinephrine 4 mg In 180.222 166.877 182.376 Sodium Chloride 0.9% 250 ml @ 0.05 MCG/KG/MIN 31. 453 mls/hr IV .Q8H5M [facility] Rx#:[id number] fentaNYL (PF). 1,000 mcg 169.346 100 195.764 In Sodium Chloride 0.9% 80 ml @ 0.5 MCG/KG/HR 8. 255 mls/hr IV .Q12H7M [facility] Rx#:[id number] propofoL 1,000 mg In 192.569 149.100 78.056 Empty Bag 1 bag @ Titrate IV .Q0M [facility] Rx#: [id number] Output: Chest Tube Drainage 210 50 Chest Tube Right 210 50 Urine 2505 2250 1580 Other: Voiding Method Indwelling Catheter Indwelling Catheter Indwelling Catheter # Bowel Movements 1 ABP, PAP, CO, CI - Last Documented Arterial Blood Pressure 106/53 - Labs CBC & Chem 7: 02/18/21 04:35 02/18/21 12:05 Labs: Abnormal Lab Results - Last 24 Hours (Table) 02/17/21 02/17/21 02/18/21 Range/Units 18:46 23:50 00:46 WBC (3.8-10.6) k/uL RBC (4.30-5.90) m/uL MCV (80.0-100.0) fL APTT (22.0-30.0) sec ABG pCO2 (35-45) mmHg ABG HCO3 (21-25) mmol/L ABG Total CO2 (19-24) mmol/L ABG O2 Saturation (94-97) % Chloride (98-107) mmol/L BUN (9-20) mg/dL Glucose (74-99) mg/dL POC Glucose (mg/dL) 279 H 305 H 255 H (75-99) mg/dL Procalcitonin (0.02-0.09) ng/mL 02/18/21 02/18/21 02/18/21 Range/Units 04:35 04:35 04:35 WBC 18.1 H (3.8-10.6) k/uL RBC 4.02 L (4.30-5.90) m/uL MCV 102.5 H (80.0-100.0) fL APTT (22.0-30.0) sec ABG pCO2 (35-45) mmHg ABG HCO3 (21-25) mmol/L ABG Total CO2 (19-24) mmol/L ABG O2 Saturation (94-97) % Chloride 111 H (98-107) mmol/L BUN 68 H (9-20) mg/dL Glucose 283 H (74-99) mg/dL POC Glucose (mg/dL) (75-99) mg/dL Procalcitonin 0.63 H (0.02-0.09) ng/mL 02/18/21 02/18/21 02/18/21 Range/Units 04:35 05:16 06:11 WBC (3.8-10.6) k/uL RBC (4.30-5.90) m/uL MCV (80.0-100.0) fL APTT 47.4 H (22.0-30.0) sec ABG pCO2 50 H (35-45) mmHg ABG HCO3 30 H (21-25) mmol/L ABG Total CO2 32 H (19-24) mmol/L ABG O2 Saturation 97.2 H (94-97) % Chloride (98-107) mmol/L BUN (9-20) mg/dL Glucose (74-99) mg/dL POC Glucose (mg/dL) 220 H (75-99) mg/dL Procalcitonin (0.02-0.09) ng/mL 02/18/21 Range/Units 11:42 WBC (3.8-10.6) k/uL RBC (4.30-5.90) m/uL MCV (80.0-100.0) fL APTT (22.0-30.0) sec ABG pCO2 (35-45) mmHg ABG HCO3 (21-25) mmol/L ABG Total CO2 (19-24) mmol/L ABG O2 Saturation (94-97) % Chloride (98-107) mmol/L BUN (9-20) mg/dL Glucose (74-99) mg/dL POC Glucose (mg/dL) 238 H (75-99) mg/dL Procalcitonin (0.02-0.09) ng/mL
[2021-02-18 17:27] LABS: Glucose,Whole Blood 298 mg/dL (75-99)
[2021-02-18] MEDS ORDERED: INSULIN DETEMIR (LEVEMIR) 100 UNIT/ML SYR SQ SCH (21:00)
--- NOTE | 2021-02-18 21:10 | P.PN ---
Subjective Patient is 60-year-old male with a known history of asthma/COPD, history of DVT, chronic low back pain, osteoarthritis and morbid obesity with BMI 46.7 presents to ER with complaints of generalized weakness and fatigue and worsening shortness of breath and exertional dyspnea. Patient states that he has been having symptoms for the past 5-6 days and his and other family members were also tested positive for covid 19 infection. Patient has been having generalized weakness and fatigue. No complaints of chest pain. Does have cough without any sputum production. No nausea vomiting or abdominal pain or diarrhea. Chest x-ray showed diffuse residual coarsening and moderate patchy airspace opacities bilaterally. Findings may represent Covid 19 pneumonia. EKG showed normal sinus rhythm Laboratory data showed WBC 7.6 hemoglobin 10.9 and platelets 167 lymphocytes 0.4 INR 1.9 and d-dimer is 1.16 Sodium 126 potassium 4.8 chloride 89 BUN 6 T5 and creatinine 1.85 calcium 7.9 AST 219 ALT 55 alk phos 63 ALT is 2347 and CRP 24.0 Procalcitonin 0.69, Covid 19 PCR detected. Patient is not vaccinated. 02/03/2021 Patient is currently in the emergency room awaiting for self care unit transfer. Patient is currently on BiPAP 16 x 6 with 100% FiO2. Patient is still having shortness of breath and he appears to be in mild distress and unable to tolerate BiPAP. Otherwise patient has been afebrile. Currently being continued on dexamethasone, warfarin dosing and multivitamins. Patient was started on ceftriaxone for possible urinary tract infection. Laboratory data showed sodium 128 potassium 4.3 chloride 91 BUN 60 and creatinine 1.8 LDH 893 and CRP 21.9 No complaints of chest pain. Patient is awake alert and oriented 3. Pulmonary is on board. 02/04/2021 Patient remains in the emergency department. Currently on BiPAP with 100% FiO2. Patient is saturating mid 80s. Sitting up in the bed. Still tachypneic and anxious. Awake alert and oriented. Laboratory showed WBC 11.2 hemoglobin 15.7 and platelets 202 lymphocytes 0.4 Sodium 131 potassium 4.3 chloride 94 bicarb is 28 BUN 75 creatinine 1.42. Urine culture is pending. Patient is being current on ceftriaxone. Patient is being continued on dexamethasone, Coumadin and multivitamins. Pulmonary is following. 02/05/2021 Patient is on BiPAP with FiO2 100%. Patient is restless and tachypneic. Pulling out tubes. Oxygen saturations around 82% to 90% while on BiPAP. Patient has been afebrile. Currently being continued on dexamethasone and Coumadin dosing. INR is 4.8 toda y. Laboratory data showed WBC 16.1 hemoglobin 16.1 platelets 170 BUN 77 creatinine 1.16 and troponin 0 0.042. Patient is also being current ceftriaxone for acute urinary tract infection. Urine culture showed no growth. Pulmonary is following. Patient does not want to get intubated. 02/06/2021 Patient was transferred to MICU. Intubated and on mechanical ventilator. Patient is sedated and multiple drips including propofol, fentanyl and Nimbex. Patient is also requiring norepinephrine. Laboratory showed WBC 20.7 hemoglobin 15.7 platelets 173 INR 5.8 Sodium 138 potassium 4.6 BUN 77 creatinine 1.43 LDH 3075 and CRP 15.1 AST 262 ALT 93 alk phos 94 and blood sugar is 188. Patient is being continued ceftriaxone, dexamethasone IV and Coumadin on hold. Patient is also on IV hydration with normal saline at 75 cc/h. Chest x-ray showed patchy infiltrates throughout both lung griffiths no change. Correlate clinically and follow-up and resolution is recommended. 02/07/2021 Patient is seen and evaluated and follow-up continues to be closely monitored in the ICU with pulmonary railway patrol officer following closely. Patient remains on sedation with propofol and fentanyl and is also continued on Nimbex and currently attempting to wean norepinephrine. Patient also continues on IV ceftriaxone for the possibility of a UTI although urine culture show no growth for 18 hours and will repeat pro calcitonin and consider discontinuing IV antibiotics. Patient also continues on vitamin and zinc along with Lovenox and IV dexamethasone and will continue. Pulmonary railway patrol officer following and patient continues to be on mechanical vent and FiO2 is at 50% with a PEEP of 14 and per nursing staff no attempts at weaning today. Chest x-ray was done and pending. Inflammatory markers continue to be elevated although trending down. 02/08/2021 This is a pleasant 60 years old male with multiple medical problems was admitted for respiratory distress secondary to bilateral Covid pneumonia and acute hypoxic respiratory failure and on the top of that bacterial superinfection is suspected with his procalcitonin elevated at 0.6 and 0.43 and patient was placed on ceftriaxone currently. Cystoscopy the ICU monitor closely and followed by pulmonary/critical care team. Labs showing leukocytosis of 16.6 while his steroids. D-dimer 1.5, LDH elevated 1965, CRP 9.0. Mildly elevated liver enzymes. He is also on warfarin with INR is subtherapeutic at 1.5. Creatinine is trending down to 1.4 down to 1.2 however patient looks like he has chronic kidney disease stage III. Currently covered with vitamin C, vitamin D, zinc, dexamethasone, ceftriaxone, normal saline 75 mL/h, warfarin and Protonix 02/09/2021 The patient remains in the ICU sedated and intubated on mechanical ventilation with pulmonary/critical care team following him closely. Patient remains clinically the same is still tachypneic he still on critical condition. WBC slightly better 13.6, liver enzymes mildly elevated, INR is 1.6 and today he will receive 3 mg of iodine. Sodium slightly elevated 146 and his IV fluid was changed to D5 half-normal saline. He remains on ceftriaxone, dexamethasone, multiple vitamins and warfarin 02/10/2021 Patient remains in critical condition needing intubation and sedation with pulmonary/critical care team following him closely and help with vent management. Distal significantly tachypneic. jesus stable, WBC is normal today 9.6. Creatinine 1.1. INR was 1.6 yesterday and 1.5 today and her receiving 3 mg today. Still on steroids, vitamins, also he received 1 time dose of Lasix while his ceftriaxone and D5 half-normal saline at 75Milliliters per hour both are discontinued 02/11/2021 Patient is in the ICU status post intubation. He is on mechanical ventilation with pulmonary/critical care team on the case. He still tachypneic with FiO2 of 70%. Labs showing leukocytosis 16 K, INR actually is trending down 1.4 and received 6 mg of warfarin today. Creatinine within baseline of 1.26. Sodium is stable at 145. His hydrochlorothiazide/lisinopril was discontinued for borderline blood pres sure on midodrine started. Remains on dexamethasone, vitamin C, D and zinc. 02/12/2021 patient remains in the ICU intubated and sedated with no much progress in his clinical condition despite optical medical treatment and prolonged hospitalization with pulmonary/critical care team following him closely. Today surgery team were consulted for PEG tube and tracheostomy placement on 02/14 Also he has bilateral DVT while his on warfarin, patient was started on heparin drip. He remains on dexamethasone, multiple vitamins. 02/13/2021 Patient is in the ICU status post intubation and mechanical ventilation with pulmonary/critical care team followed closely. Patient does not make much progress and pulmonary team recommendation PEG tube and tracheostomy placement on the consulted surgery with planned to do the procedure tomorrow. I called the spouse Mrs. Mervat morgan At [phone] and I discussed the case with her including the plan for tracheostomy and PEG tube placement by surgery team tomorrow and all her questions were answered to her satisfaction. Please there is no consent obtained by medical team for this procedure and this has been deferred to surgery team Abdomen the patient is tachypneic hypoxic, leukocytosis of 13 K which is slightly improving Also patient is on heparin drip for newly diagnosed bilateral DVT He is also on dexamethasone, vitamin C, D and zinc. 02/14/2021 Patient with no significant improvement she underwent tracheostomy and PEG tube placement by surgery team Other than that she remains on mechanical ventilation 02/15/2021 Patient remains in the ICU intubated and sedated with pulmonary/critical care team following him closely. He is status post tracheostomy and PEG tube placement. Labs look same as well as his hemodynamics is still on 50% FiO2 and tachypneic and 30. Renee stable at 13,000, liver enzymes still mildly elevated, creatinine 1.0. Sodium slightly improved down to 147 while he is on D5W at 75 mL/h. He still on dexamethasone, vitamin C D and zinc. Also he is on heparin drip for his bilateral DVT diagnosed on 02/1202/16/2021 patient remains intubated and sedated in the ICU with pulmonary/critical care team helped with mechanical ventilation. No much change today. Her FiO2 requirement increased to 70%. Labs looks stable or slightly improved with WBC down to 11.1, creatinine to 0.9, liver enzymes slightly better and sodium slightly bigger at 146. She remains on the same treatment of steroids, vitamins, heparin drip. Patient was taken off Nimbex today and kept on fentanyl and propofol 02/17/2021 Patient remains in the ICU sedated and intubated. With pulmonary/critical care team helping with the vent management. Patient hospital course today has been complicated by right lung collapse secondary to pneumothorax apparent on his chest x-ray from today. He status post chest tube placement. Labs reviewed, it looks stable, liver enzymes slightly trending up. Today IV Lasix 20 mg added. Lace Mender. Continue with dexamethasone, multiple vitamins, heparin drip. 02/18/2021 Patient still intubated and sedated in the ICU with pulmonary/critical care team following closely. Patient status right-sided chest tube placement for right pneumothorax. Test Brookecalcitonin slightly increased 0.4 up to 0.6. However he finished his antibiotic dose. He still on dexamethasone and multiple vitamins and heparin drip. He is on IV Lasix 40 mg twice daily. He is getting TPN as well Objective - Vital Signs Vital signs: Vital Signs Temp 99.9 F H 02/18/21 08:00 Pulse 101 H 02/18/21 11:00 Resp 30 H 02/18/21 11:00 BP 131/50 02/12/21 18:56 Pulse Ox 95 02/18/21 11:00 Intake & Output 02/17/21 02/18/21 02/18/21 18:59 06:59 18:59 Intake Total 1062.836 941.977 408.159 Output Total 2715 2300 228 Balance -1652.164 -1358.023 180.159 Weight 158.7 kg 158.1 kg Intake: IV 276 276 69 Dextrose 5% in Water 1, 240 240 60 000 ml @ 20 mls/hr IV . Q24H [facility] Rx#:[id number] presssure bag 36 36 9 Intake, IV Titration 786.836 665.977 339.159 Amount Heparin Sod,Pork in 0.45% 244.699 250 NaCl 25,000 unit In 0.45 % NaCl 1 250ml.bag @ 6.34 UNITS/KG/HR 9.998 mls/hr IV .Q24H [facility] Rx#: [id number] Norepinephrine 4 mg In 180.222 166.877 165.339 Sodium Chloride 0.9% 250 ml @ 0.05 MCG/KG/MIN 31. 453 mls/hr IV .Q8H5M [facility] Rx#:[id number] fentaNYL (PF). 1,000 mcg 169.346 100 95.764 In Sodium Chloride 0.9% 80 ml @ 0.5 MCG/KG/HR 8. 255 mls/hr IV .Q12H7M [facility] Rx#:[id number] propofoL 1,000 mg In 192.569 149.100 78.056 Empty Bag 1 bag @ Titrate IV .Q0M [facility] Rx#: [id number] Output: Chest Tube Drainage 210 50 Chest Tube Right 210 50 Urine 2505 2250 228 Other: Voiding Method Indwelling Catheter Indwelling Catheter Indwelling Catheter # Bowel Movements 1 ABP, PAP, CO, CI - Last Documented Arterial Blood Pressure 106/52 - Exam -GENERAL: The patient is intubated and sedated HEENT: Pupils are round and equally reacting to light. EOMI. No scleral icterus. No conjunctival pallor. Normocephalic, atraumatic. No pharyngeal erythema. No thyromegaly. CARDIOVASCULAR: S1 and S2 present. No murmurs, rubs, or gallops. -PULMONARY: Chest is clear to auscultation, no wheezing . bilateral crepitatio n. Right-sided chest tube Abdomen: soft, nontender, nondistended, normoactive bowel sounds. No palpable organomegaly. MUSCULOSKELETAL: No joint swelling or deformity. EXTREMITIES: No cyanosis, clubbing, or pedal edema. NEUROLOGICAL: Gross neurological examination did not reveal any focal deficits. SKIN: No rashes. no petechiae. - Labs CBC & Chem 7: 02/18/21 04:35 02/18/21 12:05 Labs: Abnormal Lab Results - Last 24 Hours (Table) 02/17/21 02/17/21 02/17/21 Range/Units 04:50 11:45 18:46 WBC 17.0 H (3.8-10.6) k/uL RBC (4.30-5.90) m/uL MCV 104.6 H (80.0-100.0) fL MCHC 29.6 L (31.0-37.0) g/dL Plt Count 142 L (150-450) k/uL Neutrophils # 15.8 H (1.3-7.7) k/uL Lymphocytes # 0.4 L (1.0-4.8) k/uL APTT (22.0-30.0) sec ABG pCO2 (35-45) mmHg ABG HCO3 (21-25) mmol/L ABG Total CO2 (19-24) mmol/L ABG O2 Saturation (94-97) % Chloride (98-107) mmol/L BUN (9-20) mg/dL Glucose (74-99) mg/dL POC Glucose (mg/dL) 187 H 279 H (75-99) mg/dL 02/17/21 02/18/21 02/18/21 Range/Units 23:50 00:46 04:35 WBC (3.8-10.6) k/uL RBC (4.30-5.90) m/uL MCV (80.0-100.0) fL MCHC (31.0-37.0) g/dL Plt Count (150-450) k/uL Neutrophils # (1.3-7.7) k/uL Lymphocytes # (1.0-4.8) k/uL APTT (22.0-30.0) sec ABG pCO2 (35-45) mmHg ABG HCO3 (21-25) mmol/L ABG Total CO2 (19-24) mmol/L ABG O2 Saturation (94-97) % Chloride 111 H (98-107) mmol/L BUN 68 H (9-20) mg/dL Glucose 283 H (74-99) mg/dL POC Glucose (mg/dL) 305 H 255 H (75-99) mg/dL 02/18/21 02/18/21 02/18/21 Range/Units 04:35 04:35 05:16 WBC 18.1 H (3.8-10.6) k/uL RBC 4.02 L (4.30-5.90) m/uL MCV 102.5 H (80.0-100.0) fL MCHC (31.0-37.0) g/dL Plt Count (150-450) k/uL Neutrophils # (1.3-7.7) k/uL Lymphocytes # (1.0-4.8) k/uL APTT 47.4 H (22.0-30.0) sec ABG pCO2 (35-45) mmHg ABG HCO3 (21-25) mmol/L ABG Total CO2 (19-24) mmol/L ABG O2 Saturation (94-97) % Chloride (98-107) mmol/L BUN (9-20) mg/dL Glucose (74-99) mg/dL POC Glucose (mg/dL) 220 H (75-99) mg/dL 02/18/21 Range/Units 06:11 WBC (3.8-10.6) k/uL RBC (4.30-5.90) m/uL MCV (80.0-100.0) fL MCHC (31.0-37.0) g/dL Plt Count (150-450) k/uL Neutrophils # (1.3-7.7) k/uL Lymphocytes # (1.0-4.8) k/uL APTT (22.0-30.0) sec ABG pCO2 50 H (35-45) mmHg ABG HCO3 30 H (21-25) mmol/L ABG Total CO2 32 H (19-24) mmol/L ABG O2 Saturation 97.2 H (94-97) % Chloride (98-107) mmol/L BUN (9-20) mg/dL Glucose (74-99) mg/dL POC Glucose (mg/dL) (75-99) mg/dL Assessment and Plan Assessment: Bilateral Covid pneumonia Acute hypoxic respiratory failure, requiring mechanical ventilation, status post tracheostomy and PEG tube placement on 02/14 Increased inflammatory markers Right pneumothorax status post chest tube placement on 02/17 Chronic kidney disease, stage III On IV Lasix history of DVT currently on anticoagulation with Coumadin. Morbid obesity with BMI 46.7 Chronic low back pain COPD/asthma Osteoarthritis Plan: This is a pleasant 60 years old male who presents with Bilateral Covid pneumonia and hypoxia Continue with vitamin C, vitamin D, and zinc. Continue with dexamethasone Pulmonary team consult Continue with mechanical ventilation for critical care team. Status post tracheostomy and PEG tube placement on 02/14 Heparin drip for DVT Right-sided chest tube Labs and medication were reviewed.. Continue same treatment. Continue with symptomatic treatment. Resume home medication. Monitor lytes and vitals. DVT and GI prophylaxis. Further recommendations as per clinical course of the patient DVT prophylaxis: warfarin/Heparin drip GI Prophylaxis: Ppi Prognosis is guarded
[2021-02-18] MEDS ORDERED: INSULIN DETEMIR (LEVEMIR) 100 UNIT/ML SYR SQ ONE (22:30)
[2021-02-19 00:17] LABS: Glucose,Whole Blood 205 mg/dL (75-99)
[2021-02-19] MEDS: ARTIFICIAL TEARS-HYPROMELLOSE DROPS 15 ML BTL BOTH EYES SCH ×7 (00:22→23:46)
[2021-02-19] MEDS: INSULIN ASPART (NovoLOG) 100 UNIT/ML VIAL SQ SCH ×5 (00:26→23:48)
[2021-02-19] MEDS: NOREPINEPHRINE 4 MG in SODIUM CHLORIDE 0.9% 250 ML IV SCH ×4 (01:00→18:47)
[2021-02-19] MEDS: DEXTROSE 5% IN WATER 1,000 ML IV SCH (03:42)
[2021-02-19 05:03] LABS: Glucose,Whole Blood 125 mg/dL (75-99)
[2021-02-19] MEDS: fentaNYL (PF). 1,000 MCG in SODIUM CHLORIDE 0.9% 80 ML IV SCH ×3 (05:17→18:46)
[2021-02-19] MEDS: 1: MVI, ADULT NO.4 WITH VIT K 10 ML, TRACE (CONC-1ML/DOSE) 1 ML in AMINO ACID 5%-D20W+LY IV SCH ×3 (05:19)
[2021-02-19 06:20] LABS: Basophils % (A) 0 %; Eosinophils % (A) 0 %; HCT 42.5 % (39.0-53.0); Hypochromasia Slight; Lymphocytes # (A) 0.5 k/uL (1.0-4.8); Lymphocytes % (A) 3 %; MCH 31.6 pg (25.0-35.0); MCHC 30.7 g/dL (31.0-37.0); MCV 102.9 fL (80.0-100.0); Macrocytosis Slight; Monocytes # (A) 0.5 k/uL (0-1.0); Monocytes % (A) 3 %; Neutrophils # (A) 17.9 k/uL (1.3-7.7); Neutrophils % (A) 94 %; Platelet Count 166 k/uL (150-450); RBC 4.13 m/uL (4.30-5.90); RDW 13.9 % (11.5-15.5)
[2021-02-19 06:25] LABS: Calcium 8.8 mg/dL (8.4-10.2); Potassium 4.6 mmol/L (3.5-5.1)
[2021-02-19 06:46] LABS: Magnesium 2.1 mg/dL (1.6-2.3); Phosphorus 3.8 mg/dL (2.5-4.5)
[2021-02-19 07:04] LABS: ABG Base Excess 3.7 mmol/L; ABG HCO3 30 mmol/L (21-25); ABG Oxygen Saturation 99.2 % (94-97); ABG PCO2 57 mmHg (35-45); ABG PH 7.35 (7.35-7.45); ABG PO2 131 mmHg (83-108); Allen Test Performed? Yes
--- NOTE | 2021-02-19 07:45 | P.PN ---
Subjective Progress Note Date: 02/19/21 61-year-old male patient was being seen in follow-up today. The patient remains on a mechanical ventilator due to COVID 19 related pneumonia. The patient has been intubated for an extended period of time and the patient had a tracheostomy tube inserted on 02/14/2021 and for now the patient is a Bivona tracheostomy tube in place. On today's evaluation of 02/18/2021, seeing the patient for a follow-up. Note that the patient is a subsequent with associated pneumonia [place] by right- sided pneumothorax and currently the patient is a right-sided chest tube in place. This morning, the patient remains sedated without any paralysis. He is currently on propofol running at 50 mcg/kg per minute and fentanyl is running at 1 mcg/kg/h. He seems to be quite comfortable and I would suggest further sedation weaning on this patient. He remains on a mechanical ventilator. He is on assist control mode at a tidal volume of 450, FiO2 of 65%, PEEP was at 12 and the rate of 30. Blood gases from this morning showed a pH of 7.35 with a pCO2 57 and pO2 131. Chest x-ray shows evidence of emphysema on the right. No evidence of any pneumothorax. Right-sided chest tube is in a good location. No evidence of any air leak and the Pleur-evac and output from the chest tube has been minimal at this point in time. The chest x-ray however shows increased opacity in the right lung base and some elevation right hemidiaphragm probably some right basilar atelectasis along with diffuse bilateral pulmonary infiltrates as seen earlier. Tracheostomy tube is in a good location. Of significance also was some bleeding around the tracheostomy tube stoma and IV heparin was discontinued. I will suggest restarting IV heparin knowing that the patient has bilateral lower extremity DVT. Sputum samples are to be the collected. In terms of his COVID 19 related pneumonia, his inflammatory markers were elevated still. Last inflammatory markers were obtained on 02/17/2021 and dose needs to be repeated. Most recent pro-calcitonin level from yesterday was at 0.6. Meanwhile, the patient is still pressor dependent and norepinephrine infusion is running at 0.1 Christiano respiratory per minute. Urine output is adequate. Overall fluid balance has been in the order of -3 L 4 02/18/2021 and -1.3 L or yesterday. The patient is currently on diuretics with Lasix 40 mg IV every 12 hours. He continues to have extensive edema in all 4 extremity is along with some areas of skin blistering in the lower extremities. On a separate note, the patient is currently off TPN. We are able to insert a NG tube in this patient. Currently is receiving vital high protein at the rate of 10 mL an hour and will make adjustments on the rate 60 Objective - Vital Signs Vital signs: Vital Signs Temp 99.3 F 02/18/21 20:30 Pulse 99 02/18/21 21:30 Resp 30 H 02/18/21 21:30 BP 131/50 02/12/21 18:56 Pulse Ox 96 02/18/21 21:30 Intake & Output 02/18/21 02/19/21 02/19/21 18:59 06:59 18:59 Intake Total 6575.658 9357.536 23 Output Total 2390 1545 60 Balance -999.404 -303.464 -37 Weight 158.1 kg 158.6 kg Intake: IV 299 253 23 Dextrose 5% in Water 1, 260 220 20 000 ml @ 20 mls/hr IV . Q24H [facility] Rx#:[id number] presssure bag 39 33 3 Intake, IV Titration 1091.596 848.536 Amount Heparin Sod,Pork in 0.45% 250 213.628 NaCl 25,000 unit In 0.45 % NaCl 1 250ml.bag @ 6.34 UNITS/KG/HR 9.998 mls/hr IV .Q24H [facility] Rx#: [id number] Norepinephrine 4 mg In 467.776 434.908 Sodium Chloride 0.9% 250 ml @ 0.05 MCG/KG/MIN 31. 453 mls/hr IV .Q8H5M [facility] Rx#:[id number] fentaNYL (PF). 1,000 mcg 195.764 200 In Sodium Chloride 0.9% 80 ml @ 0.5 MCG/KG/HR 8. 255 mls/hr IV .Q12H7M [facility] Rx#:[id number] propofoL 1,000 mg In 178.056 Empty Bag 1 bag @ Titrate IV .Q0M [facility] Rx#: [id number] Tube Feeding 80 Other 60 Output: Urine 2390 1545 60 Other: Voiding Method Indwelling Catheter Indwelling Catheter ABP, PAP, CO, CI - Last Documented Arterial Blood Pressure 125/60 - Exam No acute distress, sedated, with a midline tracheostomy tube. The patient has a Bivona #8 tracheostomy tube which is well secured in place HEENT examination is grossly unremarkable. Neck supple. Full range of motion. No adenopathy thyromegaly or neck vein distention. Cardiovascular examination reveals regular rhythm rate. S1-S2 normal. No S3 or S4. No discernible murmur noted. Heart rate is 52 bpm. Heart sounds are diminished. Lungs reveal coarse bilateral rhonchi. No wheezes or crackles. . Marked diminished breath sounds on the right and the patient has a right-sided chest tube in place, no evidence of any air leak Abdomen soft bowel sounds are heard. No masses or tenderness. Extremities reveal chronic venous stasis changes, and bilateral lateral lower extremity edema. No cyanosis or clubbing. Skin is without rash or lesion. Neurologic examination cannot be adequately assessed as the patient's currently sedated. - Labs CBC & Chem 7: 02/19/21 04:30 02/19/21 04:30 Labs: Abnormal Lab Results - Last 24 Hours (Table) 02/18/21 02/18/21 02/18/21 Range/Units 04:35 11:42 17:23 WBC (3.8-10.6) k/uL RBC (4.30-5.90) m/uL MCV (80.0-100.0) fL MCHC (31.0-37.0) g/dL Neutrophils # (1.3-7.7) k/uL Lymphocytes # (1.0-4.8) k/uL APTT (22.0-30.0) sec ABG pCO2 (35-45) mmHg ABG pO2 (83-108) mmHg ABG HCO3 (21-25) mmol/L ABG O2 Saturation (94-97) % Sodium (137-145) mmol/L Chloride (98-107) mmol/L BUN (9-20) mg/dL Glucose (74-99) mg/dL POC Glucose (mg/dL) 238 H 298 H (75-99) mg/dL Procalcitonin 0.63 H (0.02-0.09) ng/mL 02/18/21 02/19/21 02/19/21 Range/Units 18:25 00:15 01:30 WBC (3.8-10.6) k/uL RBC (4.30-5.90) m/uL MCV (80.0-100.0) fL MCHC (31.0-37.0) g/dL Neutrophils # (1.3-7.7) k/uL Lymphocytes # (1.0-4.8) k/uL APTT 41.6 H 63.2 H (22.0-30.0) sec ABG pCO2 (35-45) mmHg ABG pO2 (83-108) mmHg ABG HCO3 (21-25) mmol/L ABG O2 Saturation (94-97) % Sodium (137-145) mmol/L Chloride (98-107) mmol/L BUN (9-20) mg/dL Glucose (74-99) mg/dL POC Glucose (mg/dL) 205 H (75-99) mg/dL Procalcitonin (0.02-0.09) ng/mL 02/19/21 02/19/21 02/19/21 Range/Units 04:30 04:30 05:02 WBC 19.0 H (3.8-10.6) k/uL RBC 4.13 L (4.30-5.90) m/uL MCV 102.9 H (80.0-100.0) fL MCHC 30.7 L (31.0-37.0) g/dL Neutrophils # 17.9 H (1.3-7.7) k/uL Lymphocytes # 0.5 L (1.0-4.8) k/uL APTT (22.0-30.0) sec ABG pCO2 (35-45) mmHg ABG pO2 (83-108) mmHg ABG HCO3 (21-25) mmol/L ABG O2 Saturation (94-97) % Sodium 146 H (137-145) mmol/L Chloride 110 H (98-107) mmol/L BUN 67 H (9-20) mg/dL Glucose 146 H (74-99) mg/dL POC Glucose (mg/dL) 125 H (75-99) mg/dL Procalcitonin (0.02-0.09) ng/mL 02/19/21 Range/Units 05:33 WBC (3.8-10.6) k/uL RBC (4.30-5.90) m/uL MCV (80.0-100.0) fL MCHC (31.0-37.0) g/dL Neutrophils # (1.3-7.7) k/uL Lymphocytes # (1.0-4.8) k/uL APTT (22.0-30.0) sec ABG pCO2 57 H (35-45) mmHg ABG pO2 131 H (83-108) mmHg ABG HCO3 30 H (21-25) mmol/L ABG O2 Saturation 99.2 H (94-97) % Sodium (137-145) mmol/L Chloride (98-107) mmol/L BUN (9-20) mg/dL Glucose (74-99) mg/dL POC Glucose (mg/dL) (75-99) mg/dL Procalcitonin (0.02-0.09) ng/mL Microbiology - Last 24 Hours (Table) 02/18/21 13:44 Wound Culture - Preliminary Trachea Assessment and Plan Plan: 1 acute COVID 19 related pneumonia. The patient is presenting with worsening shortness of breath of 5 days' duration and the patient came in with severe hypoxic history failure currently on 100% nonrebreather facemask. Patient is not vaccinated. He is exposed to several other household who have COVID 19. The patient has diffuse bilateral pulmonary infiltrates consistent with COVID 19 related pneumonia. The patient was treated with steroids and Baricitinib and the patient is status post intubation and mechanical ventilation on 02/05/2021, Status post tracheostomy on 02/14/2021. PEG tube could not be inserted. On today's evaluation, the patient was found to have a large right-sided p neumothorax and the patient will have a chest tube placed. In terms of his esters status, the patient continues to be on a mechanical ventilator. I suggest stopping the FiO2 down to 50%. Oxidation is improved after ventilation of the chest tube and the patient has no evidence of pneumothorax on today's chest x-ray. No evidence of any air leak and the chest tube. Meanwhile, he will be kept on the same ventilator setting. He'll be continued on diuretics. He'll be continued on steroids. Sputum sample will be sent. Focused on level is low. Inflammatory markers are going to be rechecked. Pressors are still running as a dose of 0.1 g hospital kilogram per minute. There is some limited bleeding around the tracheostomy stoma which is currently inactive and heparin will be restarted. 2 acute hypoxic respiratory failure secondary to above 3 acute kidney injury, likely secondary to intravascular volume depletion/dehydration, recovered. 4 Bilateral lower extremity DVT, diagnosed on 02/12/2021. The patient remains on IV heparin. 5 previous history of DVT and the patient has been maintained on long-term anticoagulation with warfarin, currently on IV heparin 6 obesity with a BMI of 44.1 7 chronic back pain 8 history of COPD/asthma 9 previous history of pancreatitis 10 hypertension, currently blood pressure is on the lower side 11 chronic pain involving the back and the patient is demented on a combination of Voltaren gel, Flexeril, Percocet and nonsteroidal anti-inflammatory medications including Mobic. 12 acute right-sided pneumothorax, a complication of COVID 19 related pneumonia, expected complication 13 acute hypotension secondary to above, currently on norepinephrine infusion 14 enteral feeding for nutritional support and the patient was taken off TPN Plan Continue ventilator support and drop the FiO2 down to 50% and there is a potential dropping the PEEP further as long as the saturation remains above 90%. We'll may reduce the PEEP by 2 at the later stage. Continue Lasix Continue Decadron Repeat sputum samples on the focused on level has been low Repeat inflammatory markers for tomorrow Monitor the right-sided pneumothorax and To keep the chest tube in place Will wean off pressors if possible currently on norepinephrine of 0.1 Christiano respiratory kilogram per minute Sedation holiday if possible. The patient is not showing a lot of arousable and I would suggest weaning the fentanyl and keeping a low dose of propofol at this point in time Prognosis remains poor baseline above-mentioned comorbidities. We'll continue to follow. Repeated blood gases post chest tube insertion and decide if there is any role for further weaning. critical and prognosis poor based above- mentioned comorbidities. We'll continue to follow. Evaluation was done and more than 30 minutes. Time with Patient: Greater than 30
[2021-02-19] MEDS: CHLORHEXIDINE GLUCONATE 15 ML CUP MUCOUS MEM SCH ×2 (08:26→20:19)
--- NOTE | 2021-02-19 08:38 | P.PN ---
Subjective Patient is seen in follow-up for acute kidney injury. Renal function worse from diuresis. Sodium level 146 today. Receiving tube feeds. On Levophed. Nonoliguric. On IV Lasix. Vital signs are stable. On Levophed. HEENT: Tracheostomy noted. HEART: Rate and Rhythm are regular. EXTREMITITES: 2+ edema. Blisters noted. Objective - Vital Signs Vital signs: Vital Signs Temp 99.3 F 02/18/21 20:30 Pulse 99 02/18/21 21:30 Resp 30 H 02/18/21 21:30 BP 131/50 02/12/21 18:56 Pulse Ox 96 02/18/21 21:30 Intake & Output 02/18/21 02/19/21 02/19/21 18:59 06:59 18:59 Intake Total 0135.169 7526.536 179.243 Output Total 2390 1545 60 Balance -999.404 -303.464 119.243 Weight 158.1 kg 158.6 kg Intake: IV 299 253 23 Dextrose 5% in Water 1, 260 220 20 000 ml @ 20 mls/hr IV . Q24H [facility] Rx#:[id number] presssure bag 39 33 3 Intake, IV Titration 1091.596 848.536 156.243 Amount Heparin Sod,Pork in 0.45% 250 213.628 0 NaCl 25,000 unit In 0.45 % NaCl 1 250ml.bag @ 6.34 UNITS/KG/HR 9.998 mls/hr IV .Q24H [facility] Rx#: [id number] Norepinephrine 4 mg In 467.776 434.908 24.655 Sodium Chloride 0.9% 250 ml @ 0.05 MCG/KG/MIN 31. 453 mls/hr IV .Q8H5M [facility] Rx#:[id number] fentaNYL (PF). 1,000 mcg 195.764 200 48.157 In Sodium Chloride 0.9% 80 ml @ 0.5 MCG/KG/HR 8. 255 mls/hr IV .Q12H7M [facility] Rx#:[id number] propofoL 1,000 mg In 178.056 83.431 Empty Bag 1 bag @ Titrate IV .Q0M [facility] Rx#: [id number] Tube Feeding 80 Other 60 Output: Urine 2390 1545 60 Other: Voiding Method Indwelling Catheter Indwelling Catheter ABP, PAP, CO, CI - Last Documented Arterial Blood Pressure 125/60 - Labs CBC & Chem 7: 02/19/21 04:30 02/19/21 04:30 Labs: Abnormal Lab Results - Last 24 Hours (Table) 02/18/21 02/18/21 02/18/21 Range/Units 04:35 11:42 17:23 WBC (3.8-10.6) k/uL RBC (4.30-5.90) m/uL MCV (80.0-100.0) fL MCHC (31.0-37.0) g/dL Neutrophils # (1.3-7.7) k/uL Lymphocytes # (1.0-4.8) k/uL APTT (22.0-30.0) sec ABG pCO2 (35-45) mmHg ABG pO2 (83-108) mmHg ABG HCO3 (21-25) mmol/L ABG O2 Saturation (94-97) % Sodium (137-145) mmol/L Chloride (98-107) mmol/L BUN (9-20) mg/dL Glucose (74-99) mg/dL POC Glucose (mg/dL) 238 H 298 H (75-99) mg/dL Procalcitonin 0.63 H (0.02-0.09) ng/mL 02/18/21 02/19/21 02/19/21 Range/Units 18:25 00:15 01:30 WBC (3.8-10.6) k/uL RBC (4.30-5.90) m/uL MCV (80.0-100.0) fL MCHC (31.0-37.0) g/dL Neutrophils # (1.3-7.7) k/uL Lymphocytes # (1.0-4.8) k/uL APTT 41.6 H 63.2 H (22.0-30.0) sec ABG pCO2 (35-45) mmHg ABG pO2 (83-108) mmHg ABG HCO3 (21-25) mmol/L ABG O2 Saturation (94-97) % Sodium (137-145) mmol/L Chloride (98-107) mmol/L BUN (9-20) mg/dL Glucose (74-99) mg/dL POC Glucose (mg/dL) 205 H (75-99) mg/dL Procalcitonin (0.02-0.09) ng/mL 02/19/21 02/19/21 02/19/21 Range/Units 04:30 04:30 05:02 WBC 19.0 H (3.8-10.6) k/uL RBC 4.13 L (4.30-5.90) m/uL MCV 102.9 H (80.0-100.0) fL MCHC 30.7 L (31.0-37.0) g/dL Neutrophils # 17.9 H (1.3-7.7) k/uL Lymphocytes # 0.5 L (1.0-4.8) k/uL APTT (22.0-30.0) sec ABG pCO2 (35-45) mmHg ABG pO2 (83-108) mmHg ABG HCO3 (21-25) mmol/L ABG O2 Saturation (94-97) % Sodium 146 H (137-145) mmol/L Chloride 110 H (98-107) mmol/L BUN 67 H (9-20) mg/dL Glucose 146 H (74-99) mg/dL POC Glucose (mg/dL) 125 H (75-99) mg/dL Procalcitonin (0.02-0.09) ng/mL 02/19/21 Range/Units 05:33 WBC (3.8-10.6) k/uL RBC (4.30-5.90) m/uL MCV (80.0-100.0) fL MCHC (31.0-37.0) g/dL Neutrophils # (1.3-7.7) k/uL Lymphocytes # (1.0-4.8) k/uL APTT (22.0-30.0) sec ABG pCO2 57 H (35-45) mmHg ABG pO2 131 H (83-108) mmHg ABG HCO3 30 H (21-25) mmol/L ABG O2 Saturation 99.2 H (94-97) % Sodium (137-145) mmol/L Chloride (98-107) mmol/L BUN (9-20) mg/dL Glucose (74-99) mg/dL POC Glucose (mg/dL) (75-99) mg/dL Procalcitonin (0.02-0.09) ng/mL Microbiology - Last 24 Hours (Table) 02/18/21 13:44 Gram Stain - Preliminary Trachea Wound Culture - Preliminary Assessment and Plan Plan: Assessment: 1. Acute kidney injury secondary to ATN secondary to septic shock. Renal function a little worse today due to diuresis. Creatinine 1.21. Nonoliguric. 2. Acute hypoxic respiratory failure secondary to COVID-19 pneumonia. 3. Hypernatremia from lack of oral water intake. 4. Lower extremity edema. 5. Pneumothorax. Chest tube inserted. Plan: Receiving tube feeds. Add free water flushes 300 mL every 6 hours with tube feeding. Maintain IV Lasix 40 mg twice daily. Wean FiO2 and vasopressors.
[2021-02-19] MEDS: HEPARIN SOD,PORK IN 0.45% NACL 25,000 UNIT in 0.45% NACL 1 250ML.BAG IV SCH (09:03)
[2021-02-19] MEDS: PANTOPRAZOLE 40 MG/10 ML VIAL IVP SCH (09:06)
[2021-02-19] MEDS: DEXAMETHASONE SOD PHOSPHATE 10 MG/ML 1 ML VIAL IVP SCH (09:06)
[2021-02-19] MEDS: GABAPENTIN 400 MG CAP PO SCH ×2 (09:07→20:18)
[2021-02-19] MEDS: ZINC SULFATE 220 MG CAP PO SCH (09:07)
[2021-02-19] MEDS: CHOLECALCIFEROL 25 MCG (1000 IU) TABLET PO SCH (09:07)
[2021-02-19] MEDS: ASCORBIC ACID 500 MG TAB PO SCH (09:07)
[2021-02-19] MEDS: FUROSEMIDE 10 MG/ML 4 ML VIAL IV SCH ×2 (09:07→20:18)
[2021-02-19] MEDS: allopurinoL 300 MG TAB PO SCH ×2 (09:07→20:18)
[2021-02-19] MEDS: MIDODRINE 5 MG TAB PO SCH ×3 (09:07→18:26)
--- NOTE | 2021-02-19 09:20 | XR ---
EXAMINATION TYPE: XR chest 1V portable DATE OF EXAM: 02/19/2021 COMPARISON: Chest x-ray dated 02/18/2021 HISTORY: Covid pneumonia, chest tube TECHNIQUE: Single frontal view of the chest is obtained. FINDINGS: Tracheostomy tube is overlying the tracheal air column. NG tube is in place, patient is ro tated. Right-sided chest tube again seen, right jugular central venous catheter are overlying appropr iate position. There is a right-sided apical pneumothorax present similar to prior exam. Bilateral ai rspace disease is present, there may be volume loss in the right hemithorax with associated atelectas is. Cardiac mediastinal silhouette is likely stable accounting for technique. Subcutaneous emphysema is again seen. IMPRESSION: Findings are similar to prior exam, pneumonia, correlate for ARDS, apical right-sided pn eumothorax is again seen similar to prior..
[2021-02-19 11:50] LABS: Glucose,Whole Blood 188 mg/dL (75-99)
[2021-02-19 16:01] LABS: Partial Thromboplastin Time 27.9 sec (22.0-30.0)
[2021-02-19 17:05] LABS: C Reactive Protein 43.5 mg/dL (<1.0)
[2021-02-19 18:15] LABS: Glucose,Whole Blood 235 mg/dL (75-99)
[2021-02-19] MEDS: ACETAMINOPHEN TAB 325 MG TAB PO PRN (20:19)
[2021-02-19] MEDS: CEFEPIME 2 GM in SODIUM CHLORIDE 0.9% 100 ML IVPB SCH (20:22)
[2021-02-19 20:44] LABS: Glucose,Whole Blood 189 mg/dL (75-99)
[2021-02-19] MEDS ORDERED: INSULIN DETEMIR (LEVEMIR) 100 UNIT/ML SYR SQ SCH (21:00)
--- NOTE | 2021-02-19 21:15 | P.PN ---
Subjective Patient is 60-year-old male with a known history of asthma/COPD, history of DVT, chronic low back pain, osteoarthritis and morbid obesity with BMI 46.7 presents to ER with complaints of generalized weakness and fatigue and worsening shortness of breath and exertional dyspnea. Patient states that he has been having symptoms for the past 5-6 days and his and other family members were also tested positive for covid 19 infection. Patient has been having generalized weakness and fatigue. No complaints of chest pain. Does have cough without any sputum production. No nausea vomiting or abdominal pain or diarrhea. Chest x-ray showed diffuse residual coarsening and moderate patchy airspace opacities bilaterally. Findings may represent Covid 19 pneumonia. EKG showed normal sinus rhythm Laboratory data showed WBC 7.6 hemoglobin 10.9 and platelets 167 lymphocytes 0.4 INR 1.9 and d-dimer is 1.16 Sodium 126 potassium 4.8 chloride 89 BUN 6 T5 and creatinine 1.85 calcium 7.9 AST 219 ALT 55 alk phos 63 ALT is 2347 and CRP 24.0 Procalcitonin 0.69, Covid 19 PCR detected. Patient is not vaccinated. 02/03/2021 Patient is currently in the emergency room awaiting for self care unit transfer. Patient is currently on BiPAP 16 x 6 with 100% FiO2. Patient is still having shortness of breath and he appears to be in mild distress and unable to tolerate BiPAP. Otherwise patient has been afebrile. Currently being continued on dexamethasone, warfarin dosing and multivitamins. Patient was started on ceftriaxone for possible urinary tract infection. Laboratory data showed sodium 128 potassium 4.3 chloride 91 BUN 60 and creatinine 1.8 LDH 893 and CRP 21.9 No complaints of chest pain. Patient is awake alert and oriented 3. Pulmonary is on board. 02/04/2021 Patient remains in the emergency department. Currently on BiPAP with 100% FiO2. Patient is saturating mid 80s. Sitting up in the bed. Still tachypneic and anxious. Awake alert and oriented. Laboratory showed WBC 11.2 hemoglobin 15.7 and platelets 202 lymphocytes 0.4 Sodium 131 potassium 4.3 chloride 94 bicarb is 28 BUN 75 creatinine 1.42. Urine culture is pending. Patient is being current on ceftriaxone. Patient is being continued on dexamethasone, Coumadin and multivitamins. Pulmonary is following. 02/05/2021 Patient is on BiPAP with FiO2 100%. Patient is restless and tachypneic. Pulling out tubes. Oxygen saturations around 82% to 90% while on BiPAP. Patient has been afebrile. Currently being continued on dexamethasone and Coumadin dosing. INR is 4.8 toda y. Laboratory data showed WBC 16.1 hemoglobin 16.1 platelets 170 BUN 77 creatinine 1.16 and troponin 0 0.042. Patient is also being current ceftriaxone for acute urinary tract infection. Urine culture showed no growth. Pulmonary is following. Patient does not want to get intubated. 02/06/2021 Patient was transferred to MICU. Intubated and on mechanical ventilator. Patient is sedated and multiple drips including propofol, fentanyl and Nimbex. Patient is also requiring norepinephrine. Laboratory showed WBC 20.7 hemoglobin 15.7 platelets 173 INR 5.8 Sodium 138 potassium 4.6 BUN 77 creatinine 1.43 LDH 3075 and CRP 15.1 AST 262 ALT 93 alk phos 94 and blood sugar is 188. Patient is being continued ceftriaxone, dexamethasone IV and Coumadin on hold. Patient is also on IV hydration with normal saline at 75 cc/h. Chest x-ray showed patchy infiltrates throughout both lung griffiths no change. Correlate clinically and follow-up and resolution is recommended. 02/07/2021 Patient is seen and evaluated and follow-up continues to be closely monitored in the ICU with pulmonary pit worker power shovel following closely. Patient remains on sedation with propofol and fentanyl and is also continued on Nimbex and currently attempting to wean norepinephrine. Patient also continues on IV ceftriaxone for the possibility of a UTI although urine culture show no growth for 18 hours and will repeat pro calcitonin and consider discontinuing IV antibiotics. Patient also continues on vitamin and zinc along with Lovenox and IV dexamethasone and will continue. Pulmonary pit worker power shovel following and patient continues to be on mechanical vent and FiO2 is at 50% with a PEEP of 14 and per nursing staff no attempts at weaning today. Chest x-ray was done and pending. Inflammatory markers continue to be elevated although trending down. 02/08/2021 This is a pleasant 60 years old male with multiple medical problems was admitted for respiratory distress secondary to bilateral Covid pneumonia and acute hypoxic respiratory failure and on the top of that bacterial superinfection is suspected with his procalcitonin elevated at 0.6 and 0.43 and patient was placed on ceftriaxone currently. Cystoscopy the ICU monitor closely and followed by pulmonary/critical care team. Labs showing leukocytosis of 16.6 while his steroids. D-dimer 1.5, LDH elevated 1965, CRP 9.0. Mildly elevated liver enzymes. He is also on warfarin with INR is subtherapeutic at 1.5. Creatinine is trending down to 1.4 down to 1.2 however patient looks like he has chronic kidney disease stage III. Currently covered with vitamin C, vitamin D, zinc, dexamethasone, ceftriaxone, normal saline 75 mL/h, warfarin and Protonix 02/09/2021 The patient remains in the ICU sedated and intubated on mechanical ventilation with pulmonary/critical care team following him closely. Patient remains clinically the same is still tachypneic he still on critical condition. WBC slightly better 13.6, liver enzymes mildly elevated, INR is 1.6 and today he will receive 3 mg of iodine. Sodium slightly elevated 146 and his IV fluid was changed to D5 half-normal saline. He remains on ceftriaxone, dexamethasone, multiple vitamins and warfarin 02/10/2021 Patient remains in critical condition needing intubation and sedation with pulmonary/critical care team following him closely and help with vent management. Distal significantly tachypneic. jesus stable, WBC is normal today 9.6. Creatinine 1.1. INR was 1.6 yesterday and 1.5 today and her receiving 3 mg today. Still on steroids, vitamins, also he received 1 time dose of Lasix while his ceftriaxone and D5 half-normal saline at 75Milliliters per hour both are discontinued 02/11/2021 Patient is in the ICU status post intubation. He is on mechanical ventilation with pulmonary/critical care team on the case. He still tachypneic with FiO2 of 70%. Labs showing leukocytosis 16 K, INR actually is trending down 1.4 and received 6 mg of warfarin today. Creatinine within baseline of 1.26. Sodium is stable at 145. His hydrochlorothiazide/lisinopril was discontinued for borderline blood pres sure on midodrine started. Remains on dexamethasone, vitamin C, D and zinc. 02/12/2021 patient remains in the ICU intubated and sedated with no much progress in his clinical condition despite optical medical treatment and prolonged hospitalization with pulmonary/critical care team following him closely. Today surgery team were consulted for PEG tube and tracheostomy placement on 02/14 Also he has bilateral DVT while his on warfarin, patient was started on heparin drip. He remains on dexamethasone, multiple vitamins. 02/13/2021 Patient is in the ICU status post intubation and mechanical ventilation with pulmonary/critical care team followed closely. Patient does not make much progress and pulmonary team recommendation PEG tube and tracheostomy placement on the consulted surgery with planned to do the procedure tomorrow. I called the spouse Mrs. Mervat morgan At [phone] and I discussed the case with her including the plan for tracheostomy and PEG tube placement by surgery team tomorrow and all her questions were answered to her satisfaction. Please there is no consent obtained by medical team for this procedure and this has been deferred to surgery team Abdomen the patient is tachypneic hypoxic, leukocytosis of 13 K which is slightly improving Also patient is on heparin drip for newly diagnosed bilateral DVT He is also on dexamethasone, vitamin C, D and zinc. 02/14/2021 Patient with no significant improvement she underwent tracheostomy and PEG tube placement by surgery team Other than that she remains on mechanical ventilation 02/15/2021 Patient remains in the ICU intubated and sedated with pulmonary/critical care team following him closely. He is status post tracheostomy and PEG tube placement. Labs look same as well as his hemodynamics is still on 50% FiO2 and tachypneic and 30. Renee stable at 13,000, liver enzymes still mildly elevated, creatinine 1.0. Sodium slightly improved down to 147 while he is on D5W at 75 mL/h. He still on dexamethasone, vitamin C D and zinc. Also he is on heparin drip for his bilateral DVT diagnosed on 02/1202/16/2021 patient remains intubated and sedated in the ICU with pulmonary/critical care team helped with mechanical ventilation. No much change today. Her FiO2 requirement increased to 70%. Labs looks stable or slightly improved with WBC down to 11.1, creatinine to 0.9, liver enzymes slightly better and sodium slightly bigger at 146. She remains on the same treatment of steroids, vitamins, heparin drip. Patient was taken off Nimbex today and kept on fentanyl and propofol 02/17/2021 Patient remains in the ICU sedated and intubated. With pulmonary/critical care team helping with the vent management. Patient hospital course today has been complicated by right lung collapse secondary to pneumothorax apparent on his chest x-ray from today. He status post chest tube placement. Labs reviewed, it looks stable, liver enzymes slightly trending up. Today IV Lasix 20 mg added. 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 Continue with dexamethasone, multiple vitamins, heparin drip. 02/18/2021 Patient still intubated and sedated in the ICU with pulmonary/critical care team following closely. Patient status right-sided chest tube placement for right pneumothorax. Test Brookecalcitonin slightly increased 0.4 up to 0.6. However he finished his antibiotic dose. He still on dexamethasone and multiple vitamins and heparin drip. He is on IV Lasix 40 mg twice daily. He is getting TPN as well 02/19/2021 Patient's remains in critical condition while intubated and sedated in the ICU with pulmonary/critical care team following him closely. FiO2 lower to 50% today. He is running a fever of 102.5. And the WBC is 19,000. D-dimer elevated 4.3 but patient is on heparin drip for bilateral DVT. Inflammatory markers slightly better LDH 1286 but increased CRP 43.5. His tracheostomy wound culture growing gram-negative bacilli while chest x-ray showing diffuse bilateral infiltrates. Cefepime was added today while insulin increased slightly to 26 at bedtime. Discussed case with pulmonary/critical care team condition remains with guarded prognosis Objective - Vital Signs Vital signs: Vital Signs Temp 99.6 F 02/19/21 08:00 Pulse 109 H 02/19/21 10:00 Resp 30 H 02/19/21 10:00 BP 109/55 02/19/21 08:00 Pulse Ox 94 L 02/19/21 10:00 Intake & Output 02/18/21 02/19/21 02/19/21 18:59 06:59 18:59 Intake Total 1616.362 7749.536 240.205 Output Total 2390 1545 120 Balance -999.404 -303.464 120.205 Weight 158.1 kg 158.6 kg Intake: IV 299 253 46 Dextrose 5% in Water 1, 260 220 40 000 ml @ 20 mls/hr IV . Q24H [facility] Rx#:[id number] presssure bag 39 33 6 Intake, IV Titration 1091.596 848.536 174.205 Amount Heparin Sod,Pork in 0.45% 250 213.628 17.962 NaCl 25,000 unit In 0.45 % NaCl 1 250ml.bag @ 6.34 UNITS/KG/HR 9.998 mls/hr IV .Q24H [facility] Rx#: [id number] Norepinephrine 4 mg In 467.776 434.908 24.655 Sodium Chloride 0.9% 250 ml @ 0.05 MCG/KG/MIN 31. 453 mls/hr IV .Q8H5M [facility] Rx#:[id number] fentaNYL (PF). 1,000 mcg 195.764 200 48.157 In Sodium Chloride 0.9% 80 ml @ 0.5 MCG/KG/HR 8. 255 mls/hr IV .Q12H7M [facility] Rx#:[id number] propofoL 1,000 mg In 178.056 83.431 Empty Bag 1 bag @ Titrate IV .Q0M [facility] Rx#: [id number] Tube Feeding 80 20 Other 60 Output: Urine 2390 1545 120 Other: Voiding Method Indwelling Catheter Indwelling Catheter Indwelling Catheter ABP, PAP, CO, CI - Last Documented Arterial Blood Pressure 114/59 - Exam -GENERAL: The patient is intubated and sedated HEENT: Pupils are round and equally reacting to light. EOMI. No scleral icterus. No conjunctival pallor. Normocephalic, atraumatic. No pharyngeal erythema. No thyromegaly. CARDIOVASCULAR: S1 and S2 present. No murmurs, rubs, or gallops. -PULMONARY: Chest is clear to auscultation, no wheezing . bilateral crepit ation. Right-sided chest tube Abdomen: soft, nontender, nondistended, normoactive bowel sounds. No palpable organomegaly. MUSCULOSKELETAL: No joint swelling or deformity. EXTREMITIES: No cyanosis, clubbing, or pedal edema. NEUROLOGICAL: Gross neurological examination did not reveal any focal deficits. SKIN: No rashes. no petechiae. - Labs CBC & Chem 7: 02/19/21 04:30 02/19/21 15:17 Labs: Abnormal Lab Results - Last 24 Hours (Table) 02/18/21 02/18/21 02/18/21 Range/Units 04:35 11:42 17:23 WBC (3.8-10.6) k/uL RBC (4.30-5.90) m/uL MCV (80.0-100.0) fL MCHC (31.0-37.0) g/dL Neutrophils # (1.3-7.7) k/uL Lymphocytes # (1.0-4.8) k/uL APTT (22.0-30.0) sec ABG pCO2 (35-45) mmHg ABG pO2 (83-108) mmHg ABG HCO3 (21-25) mmol/L ABG O2 Saturation (94-97) % Sodium (137-145) mmol/L Chloride (98-107) mmol/L BUN (9-20) mg/dL Glucose (74-99) mg/dL POC Glucose (mg/dL) 238 H 298 H (75-99) mg/dL Procalcitonin 0.63 H (0.02-0.09) ng/mL 02/18/21 02/19/21 02/19/21 Range/Units 18:25 00:15 01:30 WBC (3.8-10.6) k/uL RBC (4.30-5.90) m/uL MCV (80.0-100.0) fL MCHC (31.0-37.0) g/dL Neutrophils # (1.3-7.7) k/uL Lymphocytes # (1.0-4.8) k/uL APTT 41.6 H 63.2 H (22.0-30.0) sec ABG pCO2 (35-45) mmHg ABG pO2 (83-108) mmHg ABG HCO3 (21-25) mmol/L ABG O2 Saturation (94-97) % Sodium (137-145) mmol/L Chloride (98-107) mmol/L BUN (9-20) mg/dL Glucose (74-99) mg/dL POC Glucose (mg/dL) 205 H (75-99) mg/dL Procalcitonin (0.02-0.09) ng/mL 02/19/21 02/19/21 02/19/21 Range/Units 04:30 04:30 05:02 WBC 19.0 H (3.8-10.6) k/uL RBC 4.13 L (4.30-5.90) m/uL MCV 102.9 H (80.0-100.0) fL MCHC 30.7 L (31.0-37.0) g/dL Neutrophils # 17.9 H (1.3-7.7) k/uL Lymphocytes # 0.5 L (1.0-4.8) k/uL APTT (22.0-30.0) sec ABG pCO2 (35-45) mmHg ABG pO2 (83-108) mmHg ABG HCO3 (21-25) mmol/L ABG O2 Saturation (94-97) % Sodium 146 H (137-145) mmol/L Chloride 110 H (98-107) mmol/L BUN 67 H (9-20) mg/dL Glucose 146 H (74-99) mg/dL POC Glucose (mg/dL) 125 H (75-99) mg/dL Procalcitonin (0.02-0.09) ng/mL 02/19/21 Range/Units 05:33 WBC (3.8-10.6) k/uL RBC (4.30-5.90) m/uL MCV (80.0-100.0) fL MCHC (31.0-37.0) g/dL Neutrophils # (1.3-7.7) k/uL Lymphocytes # (1.0-4.8) k/uL APTT (22.0-30.0) sec ABG pCO2 57 H (35-45) mmHg ABG pO2 131 H (83-108) mmHg ABG HCO3 30 H (21-25) mmol/L ABG O2 Saturation 99.2 H (94-97) % Sodium (137-145) mmol/L Chloride (98-107) mmol/L BUN (9-20) mg/dL Glucose (74-99) mg/dL POC Glucose (mg/dL) (75-99) mg/dL Procalcitonin (0.02-0.09) ng/mL Microbiology - Last 24 Hours (Table) 02/18/21 13:44 Gram Stain - Preliminary Trachea Wound Culture - Preliminary Gram Neg Bacilli Assessment and Plan Assessment: Bilateral Covid pneumonia, with superimposed bacterial infection Acute hypoxic respiratory failure, requiring mechanical ventilation, status post tracheostomy and PEG tube placement on 02/14 Increased inflammatory markers Right pneumothorax status post chest tube placement on 02/17 Chronic kidney disease, stage III On IV Lasix history of DVT currently on anticoagulation with Coumadin. Morbid obesity with BMI 46.7 Chronic low back pain COPD/asthma Osteoarthritis Plan: This is a pleasant 60 years old male who presents with Bilateral Covid pneumonia and hypoxia Continue with vitamin C, vitamin D, and zinc. Continue with dexamethasone Pulmonary team consult Continue with mechanical ventilation for critical care team. Status post tracheostomy and PEG tube placement on 02/14 Heparin drip for DVT Right-sided chest tube add cefepime, follow-up once culture results from tracheostomy Labs and medication were reviewed.. Continue same treatment. Continue with symptomatic treatment. Resume home medication. Monitor lytes and vitals. DVT and GI prophylaxis. Further recommendations as per clinical course of the patient DVT prophylaxis: warfarin/Heparin drip GI Prophylaxis: Ppi Prognosis is guarded
[2021-02-19] MEDS ORDERED: INSULIN DETEMIR (LEVEMIR) 100 UNIT/ML SYR SQ ONE (21:20)
[2021-02-19 23:23] LABS: Glucose,Whole Blood 185 mg/dL (75-99)
[2021-02-20] MEDS: NOREPINEPHRINE 4 MG in SODIUM CHLORIDE 0.9% 250 ML IV SCH ×3 (02:08→22:28)
[2021-02-20] MEDS: fentaNYL (PF). 1,000 MCG in SODIUM CHLORIDE 0.9% 80 ML IV SCH ×4 (02:10→23:40)
[2021-02-20 04:26] LABS: Basophils % (A) 0 %; Eosinophils % (A) 0 %; HCT 41.5 % (39.0-53.0); HGB 12.8 gm/dL (13.0-17.5); Hypochromasia Slight; Lymphocytes # (A) 0.4 k/uL (1.0-4.8); Lymphocytes % (A) 3 %; MCH 32.3 pg (25.0-35.0); MCV 104.3 fL (80.0-100.0); Macrocytosis Moderate; Mean Platelet Volume 10.1; Monocytes # (A) 0.4 k/uL (0-1.0); Monocytes % (A) 3 %; Neutrophils % (A) 94 %; Platelet Count 162 k/uL (150-450); RBC 3.98 m/uL (4.30-5.90); RDW 14.7 % (11.5-15.5)
[2021-02-20] MEDS: ACETAMINOPHEN TAB 325 MG TAB PO PRN (04:37)
[2021-02-20] MEDS: ARTIFICIAL TEARS-HYPROMELLOSE DROPS 15 ML BTL BOTH EYES SCH ×6 (04:47→23:30)
[2021-02-20 04:50] LABS: Calcium 8.3 mg/dL (8.4-10.2); Magnesium 2.1 mg/dL (1.6-2.3)
[2021-02-20 05:12] LABS: Glucose,Whole Blood 212 mg/dL (75-99)
[2021-02-20] MEDS: MIDODRINE 5 MG TAB PO SCH ×3 (05:22→18:44)
[2021-02-20] MEDS: INSULIN ASPART (NovoLOG) 100 UNIT/ML VIAL SQ SCH ×4 (05:22→23:31)
[2021-02-20 05:48] LABS: Potassium 4.9 mmol/L (3.5-5.1)
[2021-02-20 05:50] LABS: ABG Base Excess 4.5 mmol/L; ABG HCO3 29 mmol/L (21-25); ABG Oxygen Saturation 96.4 % (94-97); ABG PCO2 48 mmHg (35-45); ABG PO2 80 mmHg (83-108); ABG TCO2 31 mmol/L (19-24)
[2021-02-20 06:27] LABS: Allen Test Performed? no
[2021-02-20] MEDS: CEFEPIME 2 GM in SODIUM CHLORIDE 0.9% 100 ML IVPB SCH ×3 (08:33→23:34)
[2021-02-20] MEDS: FUROSEMIDE 10 MG/ML 4 ML VIAL IV SCH ×2 (08:34→20:12)
[2021-02-20] MEDS: CHLORHEXIDINE GLUCONATE 15 ML CUP MUCOUS MEM SCH ×2 (08:34→20:12)
[2021-02-20] MEDS: GABAPENTIN 400 MG CAP PO SCH ×2 (08:34→20:12)
[2021-02-20] MEDS: allopurinoL 300 MG TAB PO SCH ×2 (08:34→20:11)
[2021-02-20] MEDS: ASCORBIC ACID 500 MG TAB PO SCH (08:34)
[2021-02-20] MEDS: PANTOPRAZOLE 40 MG/10 ML VIAL IVP SCH (08:34)
[2021-02-20] MEDS: CHOLECALCIFEROL 25 MCG (1000 IU) TABLET PO SCH (08:35)
[2021-02-20] MEDS: ZINC SULFATE 220 MG CAP PO SCH (08:35)
[2021-02-20] MEDS: DEXAMETHASONE SOD PHOSPHATE 10 MG/ML 1 ML VIAL IVP SCH (08:35)
--- NOTE | 2021-02-20 08:42 | XR ---
EXAMINATION TYPE: XR chest 1V portable DATE OF EXAM: 02/20/2021 COMPARISON: 02/19/2021 HISTORY: Cough TECHNIQUE: Single frontal view of the chest is obtained. FINDINGS: There is a tracheostomy tube, central line, and NG tube. Chest tube noted in position and there is a stable right-sided pneumothorax measuring approximately 20-25 %. Bilateral infiltrates and pleural effusion on the right are stable. Hypertrophic change of the spine. Subcutaneous emphysema s table IMPRESSION: 1. Stable right-sided approximately 20-25% pneumothorax and bilateral infiltrates.
--- NOTE | 2021-02-20 10:18 | P.PN ---
<Marjorie Oliver - Last Filed: 02/20/21 10:14> Subjective Progress Note Date: 02/20/21 CHIEF COMPLAINT: COVID-19 pneumonia HISTORY OF PRESENT ILLNESS: Patient in the ICU on mechanical ventilation. He is status post tracheostomy placement. PEG tube placement was unsuccessful. Patient is currently on tube feeds through NG tube for nutrition support. Patient did have a fever 102.5 last night. Culture drainage from tracheostomy site grew gram-negative bacilli. Patient's started on cefepime care service. WBC is decreased from 19-15. PHYSICAL EXAM: VITAL SIGNS: Reviewed. GENERAL: Well-developed in no acute distress. HEENT: No sclera icterus. Moist buccal mucosa. Head is atraumatic, normocephalic. Tracheostomy site with drainage noted ABDOMEN: Soft. Nondistended. Nontender. NEUROLOGIC: sedated ASSESSMENT: 1. Acute hypoxic respiratory failure secondary to COVID-19 pneumonia status post tracheostomy placement 2. Severe protein calorie malnutrition 3. Bilateral lower extremity DVT on IV heparin PLAN: -Continue ICU management -Continue supportive care -Continue to monitor tracheostomy site Physician [employer] Specialist note has been reviewed by physician. Signing provider agrees with the documented findings, assessment, and plan of care. Objective - Vital Signs Vital signs: Vital Signs Temp 99.9 F H 02/20/21 06:00 Pulse 71 02/20/21 07:30 Resp 30 H 02/20/21 07:30 BP 123/72 02/20/21 06:30 Pulse Ox 93 L 02/20/21 07:30 Intake & Output 02/19/21 02/20/21 02/20/21 18:59 06:59 18:59 Intake Total 2722.102 9851.278 100 Output Total 1956 1797 Balance -949.040 688.278 100 Weight 158.6 kg 158 kg Intake: IV 276 299 Dextrose 5% in Water 1, 240 260 000 ml @ 20 mls/hr IV . Q24H [facility] Rx#:[id number] presssure bag 36 39 Intake, IV Titration 680.960 766.278 100 Amount Heparin Sod,Pork in 0.45% 75.018 NaCl 25,000 unit In 0.45 % NaCl 1 250ml.bag @ 6.34 UNITS/KG/HR 9.998 mls/hr IV .Q24H [facility] Rx#: [id number] Norepinephrine 4 mg In 204.883 499.440 Sodium Chloride 0.9% 250 ml @ 0.05 MCG/KG/MIN 31. 453 mls/hr IV .Q8H5M [facility] Rx#:[id number] fentaNYL (PF). 1,000 mcg 177.875 100 100 In Sodium Chloride 0.9% 80 ml @ 0.5 MCG/KG/HR 8. 255 mls/hr IV .Q12H7M [facility] Rx#:[id number] propofoL 1,000 mg In 223.184 166.838 Empty Bag 1 bag @ Titrate IV .Q0M [facility] Rx#: [id number] Tube Feeding 50 520 Other 900 Output: Chest Tube Drainage 25 Chest Tube Right 25 Urine 1956 1772 Other: Voiding Method Indwelling Catheter Indwelling Catheter ABP, PAP, CO, CI - Last Documented Arterial Blood Pressure 123/59 - Labs CBC & Chem 7: 02/20/21 04:07 02/20/21 04:07 Labs: Abnormal Lab Results - Last 24 Hours (Table) 02/19/21 02/19/21 02/19/21 Range/Units 04:30 11:48 15:17 WBC (3.8-10.6) k/uL RBC (4.30-5.90) m/uL Hgb (13.0-17.5) gm/dL MCV (80.0-100.0) fL Neutrophils # (1.3-7.7) k/uL Lymphocytes # (1.0-4.8) k/uL D-Dimer (<0.60) mg/L FEU ABG pCO2 (35-45) mmHg ABG pO2 (83-108) mmHg ABG HCO3 (21-25) mmol/L ABG Total CO2 (19-24) mmol/L Chloride (98-107) mmol/L BUN (9-20) mg/dL Glucose (74-99) mg/dL POC Glucose (mg/dL) 188 H (75-99) mg/dL Calcium (8.4-10.2) mg/dL Lactate Dehydrogenase 1286 H (313-618) U/L C-Reactive Protein 43.5 H (<1.0) mg/dL Procalcitonin 1.17 H (0.02-0.09) ng/mL 02/19/21 02/19/2102/19/21 Range/Units 15:17 18:10 20:43 WBC (3.8-10.6) k/uL RBC (4.30-5.90) m/uL Hgb (13.0-17.5) gm/dL MCV (80.0-100.0) fL Neutrophils # (1.3-7.7) k/uL Lymphocytes # (1.0-4.8) k/uL D-Dimer 4.32 H (<0.60) mg/L FEU ABG pCO2 (35-45) mmHg ABG pO2 (83-108) mmHg ABG HCO3 (21-25) mmol/L ABG Total CO2 (19-24) mmol/L Chloride (98-107) mmol/L BUN (9-20) mg/dL Glucose (74-99) mg/dL POC Glucose (mg/dL) 235 H 189 H (75-99) mg/dL Calcium (8.4-10.2) mg/dL Lactate Dehydrogenase (313-618) U/L C-Reactive Protein (<1.0) mg/dL Procalcitonin (0.02-0.09) ng/mL 02/19/21 02/20/21 02/20/21 Range/Units 23:21 04:07 04:07 WBC 15.0 H (3.8-10.6) k/uL RBC 3.98 L (4.30-5.90) m/uL Hgb 12.8 L (13.0-17.5) gm/dL MCV 104.3 H (80.0-100.0) fL Neutrophils # 14.0 H (1.3-7.7) k/uL Lymphocytes # 0.4 L (1.0-4.8) k/uL D-Dimer (<0.60) mg/L FEU ABG pCO2 (35-45) mmHg ABG pO2 (83-108) mmHg ABG HCO3 (21-25) mmol/L ABG Total CO2 (19-24) mmol/L Chloride 108 H (98-107) mmol/L BUN 90 H (9-20) mg/dL Glucose 253 H (74-99) mg/dL POC Glucose (mg/dL) 185 H (75-99) mg/dL Calcium 8.3 L (8.4-10.2) mg/dL Lactate Dehydrogenase (313-618) U/L C-Reactive Protein (<1.0) mg/dL Procalcitonin (0.02-0.09) ng/mL 02/20/21 02/20/21 Range/Units 05:10 05:49 WBC (3.8-10.6) k/uL RBC (4.30-5.90) m/uL Hgb (13.0-17.5) gm/dL MCV (80.0-100.0) fL Neutrophils # (1.3-7.7) k/uL Lymphocytes # (1.0-4.8) k/uL D-Dimer (<0.60) mg/L FEU ABG pCO2 48 H (35-45) mmHg ABG pO2 80 L (83-108) mmHg ABG HCO3 29 H (21-25) mmol/L ABG Total CO2 31 H (19-24) mmol/L Chloride (98-107) mmol/L BUN (9-20) mg/dL Glucose (74-99) mg/dL POC Glucose (mg/dL) 212 H (75-99) mg/dL Calcium (8.4-10.2) mg/dL Lactate Dehydrogenase (313-618) U/L C-Reactive Protein (<1.0) mg/dL Procalcitonin (0.02-0.09) ng/mL Microbiology - Last 24 Hours (Table) 02/18/21 13:44 Gram Stain - Preliminary Trachea Wound Culture - Preliminary Gram Neg Bacilli <Benjamin Mena - Last Filed: 02/20/21 17:37> Subjective As above. Patient stable on the ventilator. Has had fevers and tracheostomy site cultures showed gram-negative bacilli. No significant erythema of the neck noted. No crepitus. Continue ventilatory support. Patient tolerating tube feeds through nasogastric tube. No immediate plans for PEG placement. Patient's family discussing extent of care at this time. Objective - Vital Signs Vital signs: Vital Signs Temp 99.9 F H 02/20/21 06:00 Pulse 93 02/20/21 17:00 Resp 30 H 02/20/21 17:00 BP 123/72 02/20/21 17:00 Pulse Ox 92 L 02/20/21 17:00 Intake & Output 02/19/21 02/20/21 02/20/21 18:59 06:59 18:59 Intake Total 7886.710 6260.278 408.56 Output Total 1955 1796 2240 Balance -949.040 688.278 -1831.44 Weight 158.6 kg 158 kg Intake: IV 276 299 Dextrose 5% in Water 1, 240 260 000 ml @ 20 mls/hr IV . Q24H [facility] Rx#:[id number] presssure bag 36 39 Intake, IV Titration 680.960 766.278 408.56 Amount Dextrose 5% in Water 1, 200 000 ml @ 20 mls/hr IV . Q24H [facility] Rx#:[id number] Heparin Sod,Pork in 0.45% 75.018 NaCl 25,000 unit In 0.45 % NaCl 1 250ml.bag @ 6.34 UNITS/KG/HR 9.998 mls/hr IV .Q24H [facility] Rx#: [id number] Norepinephrine 4 mg In 204.883 499.440 8.56 Sodium Chloride 0.9% 250 ml @ 0.05 MCG/KG/MIN 31. 453 mls/hr IV .Q8H5M [facility] Rx#:[id number] fentaNYL (PF). 1,000 mcg 177.875 100 200 In Sodium Chloride 0.9% 80 ml @ 0.5 MCG/KG/HR 8. 255 mls/hr IV .Q12H7M [facility] Rx#:[id number] propofoL 1,000 mg In 223.184 166.838 Empty Bag 1 bag @ Titrate IV .Q0M [facility] Rx#: [id number] Tube Feeding 50 520 Other 900 Output: Chest Tube Drainage 25 Chest Tube Right 25 Urine 1955 1771 2240 Other: Voiding Method Indwelling Catheter Indwelling Catheter ABP, PAP, CO, CI - Last Documented Arterial Blood Pressure 127/60 - Labs CBC & Chem 7: 02/20/21 04:07 02/20/21 04:07 Labs: Abnormal Lab Results - Last 24 Hours (Table) 02/19/21 02/19/21 02/19/21 Range/Units 18:10 20:43 23:21 WBC (3.8-10.6) k/uL RBC (4.30-5.90) m/uL Hgb (13.0-17.5) gm/dL MCV (80.0-100.0) fL Neutrophils # (1.3-7.7) k/uL Lymphocytes # (1.0-4.8) k/uL ABG pCO2 (35-45) mmHg ABG pO2 (83-108) mmHg ABG HCO3 (21-25) mmol/L ABG Total CO2 (19-24) mmol/L Chloride (98-107) mmol/L BUN (9-20) mg/dL Glucose (74-99) mg/dL POC Glucose (mg/dL) 235 H 189 H 185 H (75-99) mg/dL Calcium (8.4-10.2) mg/dL 02/20/21 02/20/21 02/20/21 Range/Units 04:07 04:07 05:10 WBC 15.0 H (3.8-10.6) k/uL RBC 3.98 L (4.30-5.90) m/uL Hgb 12.8 L (13.0-17.5) gm/dL MCV 104.3 H (80.0-100.0) fL Neutrophils # 14.0 H (1.3-7.7) k/uL Lymphocytes # 0.4 L (1.0-4.8) k/uL ABG pCO2 (35-45) mmHg ABG pO2 (83-108) mmHg ABG HCO3 (21-25) mmol/L ABG Total CO2 (19-24) mmol/L Chloride 108 H (98-107) mmol/L BUN 90 H (9-20) mg/dL Glucose 253 H (74-99) mg/dL POC Glucose (mg/dL) 212 H (75-99) mg/dL Calcium 8.3 L (8.4-10.2) mg/dL 02/20/21 02/20/21 Range/Units 05:49 12:02 WBC (3.8-10.6) k/uL RBC (4.30-5.90) m/uL Hgb (13.0-17.5) gm/dL MCV (80.0-100.0) fL Neutrophils # (1.3-7.7) k/uL Lymphocytes # (1.0-4.8) k/uL ABG pCO2 48 H (35-45) mmHg ABG pO2 80 L (83-108) mmHg ABG HCO3 29 H (21-25) mmol/L ABG Total CO2 31 H (19-24) mmol/L Chloride (98-107) mmol/L BUN (9-20) mg/dL Glucose (74-99) mg/dL POC Glucose (mg/dL) 200 H (75-99) mg/dL Calcium (8.4-10.2) mg/dL Microbiology - Last 24 Hours (Table) 02/18/21 13:44 Gram Stain - Preliminary Trachea Wound Culture - Preliminary Gram Neg Bacilli Strep agalactiae - (group b)
[2021-02-20 12:03] LABS: Glucose,Whole Blood 200 mg/dL (75-99)
--- NOTE | 2021-02-20 13:51 | P.PN ---
Subjective Progress Note Date: 02/20/21 Principal diagnosis: Acute hypoxic respiratory failure secondary to COVID-19 pneumonia requiring intubation and mechanical ventilation on 01/06/2021 61-year-old male patient, presented to the emergency department because of worsening shortness of breath and fatigue and weakness. He has several family members in his household tested positive for COVID 19. The patient himself is not vaccinated. His symptoms started approximately 5 or 6 days ago. He progressively became more short of breath and the patient presented to the emergency department very short of breath, hypoxic, initial pulse ox was 67% on room air oxygen. He was afebrile and he was tachycardic. His EKG showed normal sinus rhythm, sinus tachycardia, white cell count was at 7.6 with a hemoglobin of 15.9, he sodium level was 126, he had an acute kidney injury with a BUN of 65 with a creatinine of 1.8, the patient immediately checked positive for COVID 19. Lactic acid level was at 1.9. The patient was initially placed on 100% nonrebreather facemask. It improved his oxygen saturation. We are the process of switching this patient to a combination of Airvo and 100% on a beta facemasks pH chest x-ray shows some elevation of the right hemidiaphragm. The patient is morbidly obese with a BMI of 46.7. The chest x-ray also showed diffuse bilateral pulmonary infiltrates consistent with COVID 19 related pneumonia. The patient is started on steroids. inflammatory markers are still pending for now. Comorbid conditions include COPD/asthma, previous history of DVT, previous history of pancreatitis, hypertension. On 02/03/2021 patient seen in follow-up in the emergency department, he remains on BiPAP support with pressures of 16 and 6 and FiO2 of 100%, remains dyspneic, tachypneic, easily desaturates when the mask is removed to receive sips of water and oral medications. He is awake and alert, oriented 3. Answers questions appropriately. Afebrile, no completes of chest discomfort, occasional cough. Symptoms have been reviewed, CBC was unremarkable, lymphocyte count is stable at 0.44. Patient is on Coumadin, his INR today is 2.0, his d-dimer yesterday was 1.16, today sodium is improving and is up to 120, potassium is 4.3, chloride is 91, BUN is 60, creatinine is 1.8., His inflammatory markers are improving, his LDH is down to 893, CRP is still pending, his pro-calcitonin level is elevated at 0.69 suggesting possibility of underlying gastrointestinal infection, urinalysis is suggestive of acute urinary tract infection, urine culture has been sent and pending at this time. Rocephin has been added for empiric antibiotic coverage, patient is on Decadron 6 mg daily, he is on Coumadin as mentioned above, and he is receiving IV fluids with 0.9 normal saline at a rate of 75 per hour, he is on vitamin C, D and zinc. His chest x-ray from yesterday shows diffuse residual coarsening of moderate patchy airspace opacities bilaterally. On 02/05/2021 patient seen in follow-up on selective care unit, patient is currently on BiPAP with FiO2 100%, he is very restless, he frequently removes the tubing, becomes more short of breath, he desaturates, he has required lorazepam 1 mg every 4 hours for anxiety. He is currently on Decadron 6 more gram daily, he is on empiric antibiotics in the form of ceftriaxone, he is on Coumadin, and his INR today is 4.8, the rest of his lab work is still pending for today. His urinalysis showed possibility of urinary tract infection, urine culture not show any growth. No fever or chills. His last chest x-ray was done 2 days ago showing diffuse residual coarsening and moderate patchy airspace opacities bilaterally. There is chronic elevation of the right hemidiaphragm. His last set of inflammatory markers was on 02/03/2021, but noted improvements in his inflammatory markers. Reevaluated today on 02/06/2021, patient was transferred to the ICU yesterday, mostly because his pulmonary status continued to deteriorate, patient remained hypoxic, continued to remove his BiPAP mask, transferred into the ICU, placed on Precedex initially, and kept him on BiPAP, however patient continued to saturate, and I was notified about the nurses that his clinical status is getting worse, recommended immediate intubation and mechanical ventilation. Patient is now intubated, mechanically ventilated. He is on assist control rate of 30 tidal volume 450 FiO2 60% and PEEP of 14. ABG showed a pO2 of 86 pCO2 of 52 pH of 7.36, patient remains on multiple drips including propofol at 40 mcg/kg/m, fentanyl 1 mcg/kg/h Nimbex 1.5 mcg/kg/m. Patient is also requiring norepinephrine at 0.1 mcg/kg/m. LDH today is extremely high over 3000. WBC count is elevated at 20.7 hemoglobin 15.7 his electrolytes are normal however his renal profile showed a BUN of 77 creatinine 1.47 chest x-ray showed patchy bilateral infiltrates, slight improvement compared to chest x-ray prior to intubation. His INR today is 5.8, hence I plan to reverse his INR are at least give him fresh frozen plasma and vitamin K in order to safely place a central line and arterial line in this patient. Reevaluated today on 02/07/2021, patient remains in the ICU, intubated and mechanically ventilated. He is on assist control rate of 30 tidal volume 450 FiO2 50% and PEEP of 14. ABG showed a pO2 of 75 pCO2 48 pH of 7.40. Chest x- ray continues to show bilateral infiltrates with a right lower lobe consolidation. No changes were made in his ventilator settings today. Agent remains on multiple drips including propofol at 40 mcg/kg/m, fentanyl at 20 mcg/kg/h Nimbex at 2 mcg/minute, norepinephrine at 0.03 mcg/kg/m, IV fluid saline at 75 mL/h he is also on enteral feedings. LDH is improving down to 1966 CRP is 9 about the same. Electrolytes are about the same but BUN is 74 creatinine is 1.35. Again chest x-ray showed no major change since admission. Education list was reviewed, patient is on allopurinol, ascorbic acid, Rocephin, vitamin D, Decadron 6 mg IV push daily, Neurontin 1600 mg twice a day, lisinopril, insulin, lorazepam, patient is on Protonix 40 mg IV push daily, Coumadin 2 mg daily. And the patient is on zinc Reevaluated today on 02/08/2021, remains in the ICU, intubated and mechanically ventilated. Patient is on assist control rate of 30 tidal volume 450 FiO2 50% PEEP is 14. ABG showed a pO2 of 73 pCO2 46 pH of 7.40 hence no changes were made in his present ventilator settings. Chest x-ray continues to show not much of a significant change, bilateral infiltrates persist. Patient is on fentanyl at 1 mcg/kg/h, propofol at 40 mcg/kg/minute, Nimbex at 2 mcg/kg/m, norepinephrine at 0.02 mcg/kg/m. Patient is on vital AF rate 45 per hour. WBC count today 16.6 hemoglobin 14 INR 1.5 patient is on Coumadin for history of DVT. Sodium 145 potassium 4.4 chloride 111 bicarb 28 BUN is 74 creatinine is 1.22. Remains on vitamin C, Rocephin, vitamin D, Decadron 6 mg IV push daily, Neurontin, lisinopril, Protonix, Coumadin 2 mg daily and is also on zinc. Reevaluated today on 02/09/2021, patient remains in the ICU intubated and mechanically ventilated. He is on assist control rate of 30 tidal volume 450 FiO2 50% PEEP is 14. His ABG showed a pO2 of 96 pCO2 48 pH of 7.37, hence I recommended decreasing the PEEP down to 12. Patient is on multiple drips including fentanyl at 1 mcg/kg/h propofol at 40 mcg/kg/m Nimbex at 1.5 mcg/kg/m norepinephrine at 0.01 mcg/kg/m is also on enteral feeding in the form of vital AF 3 5 mL per hour. His labs showed relatively normal electrolytes except for slightly elevated sodium hence his IV fluid was changed to D545 at 50 mL per hour. Patient had relatively normal electrolytes otherwise except for the sodium being 146. His BUN is 76 creatinine is 1.24 slightly higher hence we'll increase his IV fluid today. Chest x-ray continues to show bilateral infiltrates, chest x-ray is not much different from his baseline. There may be a slight improvement in his right lower lobe consolidation. Endotracheal tube had to be advanced about to see and distally. Medications list was reviewed, patient is on allopurinol, albuterol, vitamin C, Rocephin, Peridex, vitamin D, Flexeril, Decadron 6 mg IV push daily, gabapentin, insulin as per scale, lisinopril with hydrochlorothiazide, Reglan when necessary, Protonix 40 mg IV push daily, and zinc. On today's evaluation of 02/18/2021, seeing the patient for a follow-up. Note that the patient is a subsequent with associated pneumonia Combigan by right- sided pneumothorax and currently the patient is a right-sided chest tube in place. This morning, the patient remains sedated without any paralysis. He is currently on propofol running at 50 mcg/kg per minute and fentanyl is running at 1 mcg/kg/h. He seems to be quite comfortable and I would suggest further sedation weaning on this patient. He remains on a mechanical ventilator. He is on assist control mode at a tidal volume of 450, FiO2 of 65%, PEEP was at 12 and the rate of 30. Blood gases from this morning showed a pH of 7.35 with a pCO2 57 and pO2 131. Chest x-ray shows evidence of emphysema on the right. No evidence of any pneumothorax. Right-sided chest tube is in a good location. No evidence of any air leak and the Pleur-evac and output from the chest tube has been minimal at this point in time. The chest x-ray however shows increased opacity in the right lung base and some elevation right hemidiaphragm probably some right basilar atelectasis along with diffuse bilateral pulmonary infiltrates as seen earlier. Tracheostomy tube is in a good location. Of sig nificance also was some bleeding around the tracheostomy tube stoma and IV heparin was discontinued. I will suggest restarting IV heparin knowing that the patient has bilateral lower extremity DVT. Sputum samples are to be the collected. In terms of his COVID 19 related pneumonia, his inflammatory markers were elevated still. Last inflammatory markers were obtained on 02/17/2021 and dose needs to be repeated. Most recent pro-calcitonin level from yesterday was at 0.6. Meanwhile, the patient is still pressor dependent and norepinephrine infusion is running at 0.1 Christiano respiratory per minute. Urine output is adequate. Overall fluid balance has been in the order of -3 L 4 02/18/2021 and -1.3 L or yesterday. The patient is currently on diuretics with Lasix 40 mg IV every 12 hours. He continues to have extensive edema in all 4 extremity is along with some areas of skin blistering in the lower extremities. On a separate note, the patient is currently off TPN. We are able to insert a NG tube in this patient. Currently is receiving vital high protein at the rate of 10 mL an hour and will make adjustments on the rate 60 Reevaluated today on 02/20/21, patient remains in the ICU, intubated and mechanically ventilated. He is status post tracheostomy. He is on assist contr ol rate of 30 tidal volume 450 FiO2 50% and PEEP of 12. Patient remains on propofol at 10 fentanyl at 1 mcg/kg/m. Mental status is poor, today I recommended that we discontinue all sedatives and determine whether the patient is going to have any neurological improvement in his mental status. He is on feeding using vital AF at 50 mL per hour. He could not get a PEG tube placed, continues to have enteral feeding via orogastric tube. Remains on cefepime empirically. Patient is also on norepinephrine at 0.06. ABG today showed a pO2 of 80 pCO2 48 pH of 7.40. Early discitis 15.0 hemoglobin 12.8. Basic metabolic profile is normal however BUN is up to 90 creatinine 1.14. Medications were r eviewed, patient is on albuterol, allopurinol, ascorbic acid, cefepime, chlorhexidine, Decadron 6 mg IV push daily, Lasix 40 mg IV push every 12 hours, gabapentin 1600 mg twice a day, heparin , and he is also on zinc. Patient is receiving midodrine 10 mg 3 times a day. And on insulin as per protocol Accu- Cheks asked x-ray continues to show right-sided pneumothorax about 25% although the chest tube is in place, and there is also some consolidation noted at the bases bilaterally. Objective - Vital Signs Vital signs: Vital Signs Temp 99.9 F H 02/20/21 06:00 Pulse 85 02/20/21 13:30 Resp 10 L 02/20/21 13:30 BP 123/72 02/20/21 13:30 Pulse Ox 93 L 02/20/21 13:30 Intake & Output 02/19/21 02/20/21 02/20/21 18:59 06:59 18:59 Intake Total 0368.337 1761.278 100 Output Total 1956 1797 130 Balance -949.040 688.278 -30 Weight 158.6 kg 158 kg Intake: IV 276 299 Dextrose 5% in Water 1, 240 260 000 ml @ 20 mls/hr IV . Q24H [facility] Rx#:[id number] presssure bag 36 39 Intake, IV Titration 680.960 766.278 100 Amount Heparin Sod,Pork in 0.45% 75.018 NaCl 25,000 unit In 0.45 % NaCl 1 250ml.bag @ 6.34 UNITS/KG/HR 9.998 mls/hr IV .Q24H [facility] Rx#: [id number] Norepinephrine 4 mg In 204.883 499.440 Sodium Chloride 0.9% 250 ml @ 0.05 MCG/KG/MIN 31. 453 mls/hr IV .Q8H5M [facility] Rx#:[id number] fentaNYL (PF). 1,000 mcg 177.875 100 100 In Sodium Chloride 0.9% 80 ml @ 0.5 MCG/KG/HR 8. 255 mls/hr IV .Q12H7M [facility] Rx#:[id number] propofoL 1,000 mg In 223.184 166.838 Empty Bag 1 bag @ Titrate IV .Q0M [facility] Rx#: [id number] Tube Feeding 50 520 Other 900 Output: Chest Tube Drainage 25 Chest Tube Right 25 Urine 6 1772 130 Other: Voiding Method Indwelling Catheter Indwelling Catheter ABP, PAP, CO, CI - Last Documented Arterial Blood Pressure 112/55 - Exam GENERAL EXAM: Revealed a 60-year-old white male morbidly obese intubated and mechanically ventilated., Patient has tracheostomy inside. HEAD: Normocephalic/atraumatic. Neck estimated intact. HEENT: PERRLA, EOMI, nonicteric, no neck masses, moist mucous membranes, CHEST: No chest wall deformity. Symmetrical expansion. LUNGS: Crackles bilaterally mostly at the bases. CVS: Regular rate and rhythm, normal S1 and S2, no gallops, no murmurs, no rubs ABDOMEN: Obese, Soft, nontender. No hepatosplenomegaly, normal bowel sounds, no guarding or rigidity. EXTREMITIES: No clubbing, trace of bipedal edema no cyanosis, 2+ pulses and upper and lower extremities. With venous stasis changes noted in lower extremities. 2+ bipedal edema. SKIN: No rashes, except for chronic venous stasis changes and brawny discoloration of the lower extremities. CENTRAL NERVOUS SYSTEM: Unresponsive to any stimuli, agent is on a minimal dose of fentanyl and propofol and I will discontinue both today to assess mental status. PSYCHIATRIC: Cannot assess patient is sedated - Labs CBC & Chem 7: 02/20/21 04:07 02/20/21 04:07 Labs: Abnormal Lab Results - Last 24 Hours (Table) 02/19/21 02/19/21 02/19/21 Range/Units 15:17 15:17 18:10 WBC (3.8-10.6) k/uL RBC (4.30-5.90) m/uL Hgb (13.0-17.5) gm/dL MCV (80.0-100.0) fL Neutrophils # (1.3-7.7) k/uL Lymphocytes # (1.0-4.8) k/uL D-Dimer 4.32 H (<0.60) mg/L FEU ABG pCO2 (35-45) mmHg ABG pO2 (83-108) mmHg ABG HCO3 (21-25) mmol/L ABG Total CO2 (19-24) mmol/L Chloride (98-107) mmol/L BUN (9-20) mg/dL Glucose (74-99) mg/dL POC Glucose (mg/dL) 235 H (75-99) mg/dL Calcium (8.4-10.2) mg/dL Lactate Dehydrogenase 1286 H (313-618) U/L C-Reactive Protein 43.5 H (<1.0) mg/dL 02/19/21 02/19/21 02/20/21 Range/Units 20:43 23:21 04:07 WBC (3.8-10.6) k/uL RBC (4.30-5.90) m/uL Hgb (13.0-17.5) gm/dL MCV (80.0-100.0) fL Neutrophils # (1.3-7.7) k/uL Lymphocytes # (1.0-4.8) k/uL D-Dimer (<0.60) mg/L FEU ABG pCO2 (35-45) mmHg ABG pO2 (83-108) mmHg ABG HCO3 (21-25) mmol/L ABG Total CO2 (19-24) mmol/L Chloride 108 H (98-107) mmol/L BUN 90 H (9-20) mg/dL Glucose 253 H (74-99) mg/dL POC Glucose (mg/dL) 189 H 185 H (75-99) mg/dL Calcium 8.3 L (8.4-10.2) mg/dL Lactate Dehydrogenase (313-618) U/L C-Reactive Protein (<1.0) mg/dL 12/23/21 12/23/21 12/23/21 Range/Units 04:07 05:10 05:49 WBC 15.0 H (3.8-10.6) k/uL RBC 3.98 L (4.30-5.90) m/uL Hgb 12.8 L (13.0-17.5) gm/dL MCV 104.3 H (80.0-100.0) fL Neutrophils # 14.0 H (1.3-7.7) k/uL Lymphocytes # 0.4 L (1.0-4.8) k/uL D-Dimer (<0.60) mg/L FEU ABG pCO2 48 H (35-45) mmHg ABG pO2 80 L (83-108) mmHg ABG HCO3 29 H (21-25) mmol/L ABG Total CO2 31 H (19-24) mmol/L Chloride (98-107) mmol/L BUN (9-20) mg/dL Glucose (74-99) mg/dL POC Glucose (mg/dL) 212 H (75-99) mg/dL Calcium (8.4-10.2) mg/dL Lactate Dehydrogenase (313-618) U/L C-Reactive Protein (<1.0) mg/dL 02/20/21 Range/Units 12:02 WBC (3.8-10.6) k/uL RBC (4.30-5.90) m/uL Hgb (13.0-17.5) gm/dL MCV (80.0-100.0) fL Neutrophils # (1.3-7.7) k/uL Lymphocytes # (1.0-4.8) k/uL D-Dimer (<0.60) mg/L FEU ABG pCO2 (35-45) mmHg ABG pO2 (83-108) mmHg ABG HCO3 (21-25) mmol/L ABG Total CO2 (19-24) mmol/L Chloride (98-107) mmol/L BUN (9-20) mg/dL Glucose (74-99) mg/dL POC Glucose (mg/dL) 200 H (75-99) mg/dL Calcium (8.4-10.2) mg/dL Lactate Dehydrogenase (313-618) U/L C-Reactive Protein (<1.0) mg/dL Microbiology - Last 24 Hours (Table) 02/18/21 13:44 Gram Stain - Preliminary Trachea Wound Culture - Preliminary Gram Neg Bacilli Assessment and Plan Assessment: #1. Acute COVID-19, patient presented with worsening shortness of breath of 5 days duration, and she was not a candidate for Remdesivir related to severity of his hypoxia. Baricitinib was started on 02/02/2021 which will be discontinued today on 02/03/2021 related to possibility of underlying urinary tract infection. Patient was initially DO NOT RESUSCITATE CODE STATUS, however the changes CODE STATUS after she was updated on his condition when he was on the medical floor. And she reversed his CODE STATUS to full code, hence patient was transferred to the ICU on 01/06/2021, intubated and mechanically ventilated. Patient was intubated on 02/05 tracheostomy on 02/14 PEG tube could not be inserted. Patient developed a right-sided pneumothorax requiring chest tube placement continues to have a small right sided pneumothorax. And chest tube is in place. Still requiring norepinephrine intermittently. Mentation is poor, unable to assess mental status in spite of lower dose of sedation hence I will discontinue sedation today altogether. #2. Acute hypoxic respiratory failure , requiring intubation and mechanical ventilation on 01/06, patient failed BiPAP, changes CODE STATUS from DO NOT RESUSCITATE to full code. #3. Acute kidney injury related to intravascular volume depletion and dehydration being followed by nephrology. #4. Acute electrolytes imbalance, resolved. #5. Previous history of DVT on Coumadin, on outpatient basis, presently on heparin. 6. Obesity with BMI of 46.7 kg/m #7. Chronic back pain #8. History of COPD/asthma #9. Previous history of pancreatitis #10. Hypertension #11. Acute right-sided pneumothorax, as a complication from COVID-19 pneumonia, expected status post right sided chest tube placement by Dr. Rosa. Recommendations Continue ventilatory support. Continue same ventilator settings at present he is on assist control rate of 30 tidal volume 450 FiO2 50% PEEP of 5. No changes in vent settings made today.. Continue nutritional support. Patient is on enteral feeding, PEG tube could not be placed. Continue enteral feeding. Continue COVID-19 cocktail. Continue Decadron. Cut down sedation and assessment of status. Must be done on a daily basis. Continue to monitor x-rays on a daily basis as well as inflammatory markers. Continue GI and DVT prophylaxis. Prognosis is extremely poor and guarded. Continue cefepime empirically Continue gabapentin Continue heparin and hopefully transition to Coumadin again. Critical care time is over 30 minutes Time with Patient: Greater than 30
[2021-02-20] MEDS: DEXTROSE 5% IN WATER 1,000 ML IV SCH (15:50)
[2021-02-20 18:37] LABS: Glucose,Whole Blood 281 mg/dL (75-99)
[2021-02-20] MEDS ORDERED: INSULIN DETEMIR (LEVEMIR) 100 UNIT/ML SYR SQ SCH (21:00)
[2021-02-20 23:22] LABS: Glucose,Whole Blood 260 mg/dL (75-99)
--- NOTE | 2021-02-20 23:29 | P.PN ---
Subjective Patient is 60-year-old male with a known history of asthma/COPD, history of DVT, chronic low back pain, osteoarthritis and morbid obesity with BMI 46.7 presents to ER with complaints of generalized weakness and fatigue and worsening shortness of breath and exertional dyspnea. Patient states that he has been having symptoms for the past 5-6 days and his and other family members were also tested positive for covid 19 infection. Patient has been having generalized weakness and fatigue. No complaints of chest pain. Does have cough without any sputum production. No nausea vomiting or abdominal pain or diarrhea. Chest x-ray showed diffuse residual coarsening and moderate patchy airspace opacities bilaterally. Findings may represent Covid 19 pneumonia. EKG showed normal sinus rhythm Laboratory data showed WBC 7.6 hemoglobin 10.9 and platelets 167 lymphocytes 0.4 INR 1.9 and d-dimer is 1.16 Sodium 126 potassium 4.8 chloride 89 BUN 6 T5 and creatinine 1.85 calcium 7.9 AST 219 ALT 55 alk phos 63 ALT is 2347 and CRP 24.0 Procalcitonin 0.69, Covid 19 PCR detected. Patient is not vaccinated. 02/03/2021 Patient is currently in the emergency room awaiting for self care unit transfer. Patient is currently on BiPAP 16 x 6 with 100% FiO2. Patient is still having shortness of breath and he appears to be in mild distress and unable to tolerate BiPAP. Otherwise patient has been afebrile. Currently being continued on dexamethasone, warfarin dosing and multivitamins. Patient was started on ceftriaxone for possible urinary tract infection. Laboratory data showed sodium 128 potassium 4.3 chloride 91 BUN 60 and creatinine 1.8 LDH 893 and CRP 21.9 No complaints of chest pain. Patient is awake alert and oriented 3. Pulmonary is on board. 02/04/2021 Patient remains in the emergency department. Currently on BiPAP with 100% FiO2. Patient is saturating mid 80s. Sitting up in the bed. Still tachypneic and anxious. Awake alert and oriented. Laboratory showed WBC 11.2 hemoglobin 15.7 and platelets 202 lymphocytes 0.4 Sodium 131 potassium 4.3 chloride 94 bicarb is 28 BUN 75 creatinine 1.42. Urine culture is pending. Patient is being current on ceftriaxone. Patient is being continued on dexamethasone, Coumadin and multivitamins. Pulmonary is following. 02/05/2021 Patient is on BiPAP with FiO2 100%. Patient is restless and tachypneic. Pulling out tubes. Oxygen saturations around 82% to 90% while on BiPAP. Patient has been afebrile. Currently being continued on dexamethasone and Coumadin dosing. INR is 4.8 toda y. Laboratory data showed WBC 16.1 hemoglobin 16.1 platelets 170 BUN 77 creatinine 1.16 and troponin 0 0.042. Patient is also being current ceftriaxone for acute urinary tract infection. Urine culture showed no growth. Pulmonary is following. Patient does not want to get intubated. 02/06/2021 Patient was transferred to MICU. Intubated and on mechanical ventilator. Patient is sedated and multiple drips including propofol, fentanyl and Nimbex. Patient is also requiring norepinephrine. Laboratory showed WBC 20.7 hemoglobin 15.7 platelets 173 INR 5.8 Sodium 138 potassium 4.6 BUN 77 creatinine 1.43 LDH 3075 and CRP 15.1 AST 262 ALT 93 alk phos 94 and blood sugar is 188. Patient is being continued ceftriaxone, dexamethasone IV and Coumadin on hold. Patient is also on IV hydration with normal saline at 75 cc/h. Chest x-ray showed patchy infiltrates throughout both lung griffiths no change. Correlate clinically and follow-up and resolution is recommended. 02/07/2021 Patient is seen and evaluated and follow-up continues to be closely monitored in the ICU with pulmonary crown blocker following closely. Patient remains on sedation with propofol and fentanyl and is also continued on Nimbex and currently attempting to wean norepinephrine. Patient also continues on IV ceftriaxone for the possibility of a UTI although urine culture show no growth for 18 hours and will repeat pro calcitonin and consider discontinuing IV antibiotics. Patient also continues on vitamin and zinc along with Lovenox and IV dexamethasone and will continue. Pulmonary crown blocker following and patient continues to be on mechanical vent and FiO2 is at 50% with a PEEP of 14 and per nursing staff no attempts at weaning today. Chest x-ray was done and pending. Inflammatory markers continue to be elevated although trending down. 02/08/2021 This is a pleasant 60 years old male with multiple medical problems was admitted for respiratory distress secondary to bilateral Covid pneumonia and acute hypoxic respiratory failure and on the top of that bacterial superinfection is suspected with his procalcitonin elevated at 0.6 and 0.43 and patient was placed on ceftriaxone currently. Cystoscopy the ICU monitor closely and followed by pulmonary/critical care team. Labs showing leukocytosis of 16.6 while his steroids. D-dimer 1.5, LDH elevated 1965, CRP 9.0. Mildly elevated liver enzymes. He is also on warfarin with INR is subtherapeutic at 1.5. Creatinine is trending down to 1.4 down to 1.2 however patient looks like he has chronic kidney disease stage III. Currently covered with vitamin C, vitamin D, zinc, dexamethasone, ceftriaxone, normal saline 75 mL/h, warfarin and Protonix 02/09/2021 The patient remains in the ICU sedated and intubated on mechanical ventilation with pulmonary/critical care team following him closely. Patient remains clinically the same is still tachypneic he still on critical condition. WBC slightly better 13.6, liver enzymes mildly elevated, INR is 1.6 and today he will receive 3 mg of iodine. Sodium slightly elevated 146 and his IV fluid was changed to D5 half-normal saline. He remains on ceftriaxone, dexamethasone, multiple vitamins and warfarin 02/10/2021 Patient remains in critical condition needing intubation and sedation with pulmonary/critical care team following him closely and help with vent management. Distal significantly tachypneic. jesus stable, WBC is normal today 9.6. Creatinine 1.1. INR was 1.6 yesterday and 1.5 today and her receiving 3 mg today. Still on steroids, vitamins, also he received 1 time dose of Lasix while his ceftriaxone and D5 half-normal saline at 75Milliliters per hour both are discontinued 02/11/2021 Patient is in the ICU status post intubation. He is on mechanical ventilation with pulmonary/critical care team on the case. He still tachypneic with FiO2 of 70%. Labs showing leukocytosis 16 K, INR actually is trending down 1.4 and received 6 mg of warfarin today. Creatinine within baseline of 1.26. Sodium is stable at 145. His hydrochlorothiazide/lisinopril was discontinued for borderline blood pres sure on midodrine started. Remains on dexamethasone, vitamin C, D and zinc. 02/12/2021 patient remains in the ICU intubated and sedated with no much progress in his clinical condition despite optical medical treatment and prolonged hospitalization with pulmonary/critical care team following him closely. Today surgery team were consulted for PEG tube and tracheostomy placement on 02/14 Also he has bilateral DVT while his on warfarin, patient was started on heparin drip. He remains on dexamethasone, multiple vitamins. 02/13/2021 Patient is in the ICU status post intubation and mechanical ventilation with pulmonary/critical care team followed closely. Patient does not make much progress and pulmonary team recommendation PEG tube and tracheostomy placement on the consulted surgery with planned to do the procedure tomorrow. I called the spouse Mrs. Mervat morgan At [phone] and I discussed the case with her including the plan for tracheostomy and PEG tube placement by surgery team tomorrow and all her questions were answered to her satisfaction. Please there is no consent obtained by medical team for this procedure and this has been deferred to surgery team Abdomen the patient is tachypneic hypoxic, leukocytosis of 13 K which is slightly improving Also patient is on heparin drip for newly diagnosed bilateral DVT He is also on dexamethasone, vitamin C, D and zinc. 02/14/2021 Patient with no significant improvement she underwent tracheostomy and PEG tube placement by surgery team Other than that she remains on mechanical ventilation 02/15/2021 Patient remains in the ICU intubated and sedated with pulmonary/critical care team following him closely. He is status post tracheostomy and PEG tube placement. Labs look same as well as his hemodynamics is still on 50% FiO2 and tachypneic and 30. Renee stable at 13,000, liver enzymes still mildly elevated, creatinine 1.0. Sodium slightly improved down to 147 while he is on D5W at 75 mL/h. He still on dexamethasone, vitamin C D and zinc. Also he is on heparin drip for his bilateral DVT diagnosed on 02/1202/16/2021 patient remains intubated and sedated in the ICU with pulmonary/critical care team helped with mechanical ventilation. No much change today. Her FiO2 requirement increased to 70%. Labs looks stable or slightly improved with WBC down to 11.1, creatinine to 0.9, liver enzymes slightly better and sodium slightly bigger at 146. She remains on the same treatment of steroids, vitamins, heparin drip. Patient was taken off Nimbex today and kept on fentanyl and propofol 02/17/2021 Patient remains in the ICU sedated and intubated. With pulmonary/critical care team helping with the vent management. Patient hospital course today has been complicated by right lung collapse secondary to pneumothorax apparent on his chest x-ray from today. He status post chest tube placement. Labs reviewed, it looks stable, liver enzymes slightly trending up. Today IV Lasix 20 mg added. [employer]. Continue with dexamethasone, multiple vitamins, heparin drip. 02/18/2021 Patient still intubated and sedated in the ICU with pulmonary/critical care team following closely. Patient status right-sided chest tube placement for right pneumothorax. Test Brookecalcitonin slightly increased 0.4 up to 0.6. However he finished his antibiotic dose. He still on dexamethasone and multiple vitamins and heparin drip. He is on IV Lasix 40 mg twice daily. He is getting TPN as well 02/19/2021 Patient's remains in critical condition while intubated and sedated in the ICU with pulmonary/critical care team following him closely. FiO2 lower to 50% today. He is running a fever of 102.5. And the WBC is 19,000. D-dimer elevated 4.3 but patient is on heparin drip for bilateral DVT. Inflammatory markers slightly better LDH 1286 but increased CRP 43.5. His tracheostomy wound culture growing gram-negative bacilli while chest x-ray showing diffuse bilateral infiltrates. Cefepime was added today while insulin increased slightly to 26 at bedtime. Discussed case with pulmonary/critical care team condition remains with guarded prognosis 02/20/2021 Patient remains critically ill in the ICU. Pulmonary/critical care team following the patient and help with vent management. He remains with FiO2 of 50%. At least a running fever of 102. Patient is tachypneic at 30. Labs show leukocytosis improvement slightly down to 15 K. Sodium 144 BMP is unremarkable. Chest x-ray showing 25% right pneumothorax and bilateral infiltrates. Patient remains on cefepime, dexamethasone, vitamins and heparin drip. D5W has been held at 20 mL per hour Objective - Vital Signs Vital signs: Vital Signs Temp 99.9 F H 02/20/21 06:00 Pulse 90 02/20/21 10:00 Resp 30 H 02/20/21 10:00 BP 123/72 02/20/21 06:30 Pulse Ox 94 L 02/20/21 10:00 Intake & Output 02/19/21 02/20/21 02/20/21 18:59 06:59 18:59 Intake Total 6268.146 0447.278 100 Output Total 1956 1797 130 Balance -949.040 688.278 -30 Weight 158.6 kg 158 kg Intake: IV 276 299 Dextrose 5% in Water 1, 240 260 000 ml @ 20 mls/hr IV . Q24H [facility] Rx#:[id number] presssure bag 36 39 Intake, IV Titration 680.960 766.278 100 Amount Heparin Sod,Pork in 0.45% 75.018 NaCl 25,000 unit In 0.45 % NaCl 1 250ml.bag @ 6.34 UNITS/KG/HR 9.998 mls/hr IV .Q24H [facility] Rx#: [id number] Norepinephrine 4 mg In 204.883 499.440 Sodium Chloride 0.9% 250 ml @ 0.05 MCG/KG/MIN 31. 453 mls/hr IV .Q8H5M [facility] Rx#:[id number] fentaNYL (PF). 1,000 mcg 177.875 100 100 In Sodium Chloride 0.9% 80 ml @ 0.5 MCG/KG/HR 8. 255 mls/hr IV .Q12H7M [facility] Rx#:[id number] propofoL 1,000 mg In 223.184 166.838 Empty Bag 1 bag @ Titrate IV .Q0M [facility] Rx#: [id number] Tube Feeding 50 520 Other 900 Output: Chest Tube Drainage 25 Chest Tube Right 25 Urine 1955 1772 130 Other: Voiding Method Indwelling Catheter Indwelling Catheter ABP, PAP, CO, CI - Last Documented Arterial Blood Pressure 144/68 - Exam -GENERAL: The patient is intubated and sedated HEENT: Pupils are round and equally reacting to light. EOMI. No scleral icterus. No conjunctival pallor. Normocephalic, atraumatic. No pharyngeal erythema. No thyromegaly. CARDIOVASCULAR: S1 and S2 present. No murmurs, rubs, or gallops. -PULMONARY: Chest is clear to auscultation, no wheezing . bilateral crepit ation. Right-sided chest tube Abdomen: soft, nontender, nondistended, normoactive bowel sounds. No palpable organomegaly. MUSCULOSKELETAL: No joint swelling or deformity. EXTREMITIES: No cyanosis, clubbing, or pedal edema. NEUROLOGICAL: Gross neurological examination did not reveal any focal deficits. SKIN: No rashes. no petechiae. - Labs CBC & Chem 7: 02/20/21 04:07 02/20/21 04:07 Labs: Abnormal Lab Results - Last 24 Hours (Table) 02/19/21 02/19/21 02/19/21 Range/Units 15:17 15:17 18:10 WBC (3.8-10.6) k/uL RBC (4.30-5.90) m/uL Hgb (13.0-17.5) gm/dL MCV (80.0-100.0) fL Neutrophils # (1.3-7.7) k/uL Lymphocytes # (1.0-4.8) k/uL D-Dimer 4.32 H (<0.60) mg/L FEU ABG pCO2 (35-45) mmHg ABG pO2 (83-108) mmHg ABG HCO3 (21-25) mmol/L ABG Total CO2 (19-24) mmol/L Chloride (98-107) mmol/L BUN (9-20) mg/dL Glucose (74-99) mg/dL POC Glucose (mg/dL) 235 H (75-99) mg/dL Calcium (8.4-10.2) mg/dL Lactate Dehydrogenase 1286 H (313-618) U/L C-Reactive Protein 43.5 H (<1.0) mg/dL 02/19/21 02/19/21 02/20/21 Range/Units 20:43 23:21 04:07 WBC (3.8-10.6) k/uL RBC (4.30-5.90) m/uL Hgb (13.0-17.5) gm/dL MCV (80.0-100.0) fL Neutrophils # (1.3-7.7) k/uL Lymphocytes # (1.0-4.8) k/uL D-Dimer (<0.60) mg/L FEU ABG pCO2 (35-45) mmHg ABG pO2 (83-108) mmHg ABG HCO3 (21-25) mmol/L ABG Total CO2 (19-24) mmol/L Chloride 108 H (98-107) mmol/L BUN 90 H (9-20) mg/dL Glucose 253 H (74-99) mg/dL POC Glucose (mg/dL) 189 H 185 H (75-99) mg/dL Calcium 8.3 L (8.4-10.2) mg/dL Lactate Dehydrogenase (313-618) U/L C-Reactive Protein (<1.0) mg/dL 02/20/21 02/20/21 02/20/21 Range/Units 04:07 05:10 05:49 WBC 15.0 H (3.8-10.6) k/uL RBC 3.98 L (4.30-5.90) m/uL Hgb 12.8 L (13.0-17.5) gm/dL MCV 104.3 H (80.0-100.0) fL Neutrophils # 14.0 H (1.3-7.7) k/uL Lymphocytes # 0.4 L (1.0-4.8) k/uL D-Dimer (<0.60) mg/L FEU ABG pCO2 48 H (35-45) mmHg ABG pO2 80 L (83-108) mmHg ABG HCO3 29 H (21-25) mmol/L ABG Total CO2 31 H (19-24) mmol/L Chloride (98-107) mmol/L BUN (9-20) mg/dL Glucose (74-99) mg/dL POC Glucose (mg/dL) 212 H (75-99) mg/dL Calcium (8.4-10.2) mg/dL Lactate Dehydrogenase (313-618) U/L C-Reactive Protein (<1.0) mg/dL 02/20/21 Range/Units 12:02 WBC (3.8-10.6) k/uL RBC (4.30-5.90) m/uL Hgb (13.0-17.5) gm/dL MCV (80.0-100.0) fL Neutrophils # (1.3-7.7) k/uL Lymphocytes # (1.0-4.8) k/uL D-Dimer (<0.60) mg/L FEU ABG pCO2 (35-45) mmHg ABG pO2 (83-108) mmHg ABG HCO3 (21-25) mmol/L ABG Total CO2 (19-24) mmol/L Chloride (98-107) mmol/L BUN (9-20) mg/dL Glucose (74-99) mg/dL POC Glucose (mg/dL) 200 H (75-99) mg/dL Calcium (8.4-10.2) mg/dL Lactate Dehydrogenase (313-618) U/L C-Reactive Protein (<1.0) mg/dL Microbiology - Last 24 Hours (Table) 02/18/21 13:44 Gram Stain - Preliminary Trachea Wound Culture - Preliminary Gram Neg Bacilli Assessment and Plan Assessment: Bilateral Covid pneumonia, with superimposed bacterial infection Acute hypoxic respiratory failure, requiring mechanical ventilation, status post tracheostomy and PEG tube placement on 02/14 Increased inflammatory markers Right pneumothorax status post chest tube placement on 02/17 Chronic kidney disease, stage III On IV Lasix history of DVT currently on anticoagulation with Coumadin. Morbid obesity with BMI 46.7 Chronic low back pain COPD/asthma Osteoarthritis Plan: This is a pleasant 60 years old male who presents with Bilateral Covid pneumonia and hypoxia Continue with vitamin C, vitamin D, and zinc. Continue with dexamethasone Pulmonary team consult Continue with mechanical ventilation for critical care team. Status post tracheostomy and PEG tube placement on 02/14 Heparin drip for DVT Right-sided chest tube add cefepime, follow-up once culture results from tracheostomy Labs and medication were reviewed.. Continue same treatment. Continue with symptomatic treatment. Resume home medication. Monitor lytes and vitals. DVT and GI prophylaxis. Further recommendations as per clinical course of the patient DVT prophylaxis: warfarin/Heparin drip GI Prophylaxis: Ppi Prognosis is guarded
[2021-02-21] MEDS: NOREPINEPHRINE 4 MG in SODIUM CHLORIDE 0.9% 250 ML IV SCH ×3 (03:17→20:01)
[2021-02-21 04:13] LABS: Basophils % (A) 0 %; Eosinophils % (A) 0 %; HGB 13.6 gm/dL (13.0-17.5); Hypochromasia Slight; Lymphocytes # (A) 0.4 k/uL (1.0-4.8); Lymphocytes % (A) 3 %; MCH 31.7 pg (25.0-35.0); MCHC 30.9 g/dL (31.0-37.0); MCV 102.7 fL (80.0-100.0); Macrocytosis Slight; Mean Platelet Volume 10.6; Monocytes # (A) 0.6 k/uL (0-1.0); Monocytes % (A) 4 %; Neutrophils # (A) 13.4 k/uL (1.3-7.7); Neutrophils % (A) 92 %; Platelet Count 159 k/uL (150-450); RBC 4.29 m/uL (4.30-5.90); RDW 14.1 % (11.5-15.5); WBC 14.5 k/uL (3.8-10.6)
[2021-02-21 04:29] LABS: Albumin 2.5 g/dL (3.5-5.0); Calcium 8.6 mg/dL (8.4-10.2); Potassium 4.5 mmol/L (3.5-5.1); Total Bilirubin 1.9 mg/dL (0.2-1.3); Total Protein 5.8 g/dL (6.3-8.2)
[2021-02-21] MEDS: ARTIFICIAL TEARS-HYPROMELLOSE DROPS 15 ML BTL BOTH EYES SCH (05:02)
[2021-02-21 05:08] LABS: ABG Base Excess 4.2 mmol/L; ABG HCO3 30 mmol/L (21-25); ABG Oxygen Saturation 96.6 % (94-97); ABG PCO2 51 mmHg (35-45); ABG PH 7.37 (7.35-7.45); ABG PO2 84 mmHg (83-108); ABG TCO2 31 mmol/L (19-24)
[2021-02-21] MEDS: fentaNYL (PF). 1,000 MCG in SODIUM CHLORIDE 0.9% 80 ML IV SCH (05:28)
[2021-02-21] MEDS: MIDODRINE 5 MG TAB PO SCH ×3 (06:04→17:54)
[2021-02-21 06:13] LABS: Glucose,Whole Blood 239 mg/dL (75-99)
[2021-02-21 06:17] LABS: Allen Test Performed? no
[2021-02-21] MEDS: INSULIN ASPART (NovoLOG) 100 UNIT/ML VIAL SQ SCH ×3 (06:17→17:58)
[2021-02-21] MEDS: CEFEPIME 2 GM in SODIUM CHLORIDE 0.9% 100 ML IVPB SCH ×3 (09:17→23:09)
[2021-02-21] MEDS: ZINC SULFATE 220 MG CAP PO SCH (09:18)
[2021-02-21] MEDS: allopurinoL 300 MG TAB PO SCH ×2 (09:18→20:41)
[2021-02-21] MEDS: FUROSEMIDE 10 MG/ML 4 ML VIAL IV SCH ×2 (09:18→20:41)
[2021-02-21] MEDS: GABAPENTIN 400 MG CAP PO SCH ×2 (09:18→20:41)
[2021-02-21] MEDS: CHOLECALCIFEROL 25 MCG (1000 IU) TABLET PO SCH (09:18)
[2021-02-21] MEDS: ASCORBIC ACID 500 MG TAB PO SCH (09:18)
[2021-02-21] MEDS: DEXAMETHASONE SOD PHOSPHATE 10 MG/ML 1 ML VIAL IVP SCH (09:18)
[2021-02-21] MEDS: CHLORHEXIDINE GLUCONATE 15 ML CUP MUCOUS MEM SCH ×2 (09:18→20:41)
[2021-02-21] MEDS: PANTOPRAZOLE 40 MG/10 ML VIAL IVP SCH (09:18)
[2021-02-21] MEDS: ACETAMINOPHEN TAB 325 MG TAB PO PRN (10:22)
--- NOTE | 2021-02-21 11:08 | P.PN ---
Subjective Progress Note Date: 02/21/21 Principal diagnosis: Acute hypoxic respiratory failure secondary to COVID-19 pneumonia requiring intubation and mechanical ventilation on 01/06/2021 61-year-old male patient, presented to the emergency department because of worsening shortness of breath and fatigue and weakness. He has several family members in his household tested positive for COVID 19. The patient himself is not vaccinated. His symptoms started approximately 5 or 6 days ago. He progressively became more short of breath and the patient presented to the emergency department very short of breath, hypoxic, initial pulse ox was 67% on room air oxygen. He was afebrile and he was tachycardic. His EKG showed normal sinus rhythm, sinus tachycardia, white cell count was at 7.6 with a hemoglobin of 15.9, he sodium level was 126, he had an acute kidney injury with a BUN of 65 with a creatinine of 1.8, the patient immediately checked positive for COVID 19. Lactic acid level was at 1.9. The patient was initially placed on 100% nonrebreather facemask. It improved his oxygen saturation. We are the process of switching this patient to a combination of Airvo and 100% on a beta facemasks pH chest x-ray shows some elevation of the right hemidiaphragm. The patient is morbidly obese with a BMI of 46.7. The chest x-ray also showed diffuse bilateral pulmonary infiltrates consistent with COVID 19 related pneumonia. The patient is started on steroids. inflammatory markers are still pending for now. Comorbid conditions include COPD/asthma, previous history of DVT, previous history of pancreatitis, hypertension. On 02/03/2021 patient seen in follow-up in the emergency department, he remains on BiPAP support with pressures of 16 and 6 and FiO2 of 100%, remains dyspneic, tachypneic, easily desaturates when the mask is removed to receive sips of water and oral medications. He is awake and alert, oriented 3. Answers questions appropriately. Afebrile, no completes of chest discomfort, occasional cough. Symptoms have been reviewed, CBC was unremarkable, lymphocyte count is stable at 0.44. Patient is on Coumadin, his INR today is 2.0, his d-dimer yesterday was 1.16, today sodium is improving and is up to 120, potassium is 4.3, chloride is 91, BUN is 60, creatinine is 1.8., His inflammatory markers are improving, his LDH is down to 893, CRP is still pending, his pro-calcitonin level is elevated at 0.69 suggesting possibility of underlying gastrointestinal infection, urinalysis is suggestive of acute urinary tract infection, urine culture has been sent and pending at this time. Rocephin has been added for empiric antibiotic coverage, patient is on Decadron 6 mg daily, he is on Coumadin as mentioned above, and he is receiving IV fluids with 0.9 normal saline at a rate of 75 per hour, he is on vitamin C, D and zinc. His chest x-ray from yesterday shows diffuse residual coarsening of moderate patchy airspace opacities bilaterally. On 02/05/2021 patient seen in follow-up on selective care unit, patient is currently on BiPAP with FiO2 100%, he is very restless, he frequently removes the tubing, becomes more short of breath, he desaturates, he has required lorazepam 1 mg every 4 hours for anxiety. He is currently on Decadron 6 more gram daily, he is on empiric antibiotics in the form of ceftriaxone, he is on Coumadin, and his INR today is 4.8, the rest of his lab work is still pending for today. His urinalysis showed possibility of urinary tract infection, urine culture not show any growth. No fever or chills. His last chest x-ray was done 2 days ago showing diffuse residual coarsening and moderate patchy airspace opacities bilaterally. There is chronic elevation of the right hemidiaphragm. His last set of inflammatory markers was on 02/03/2021, but noted improvements in his inflammatory markers. Reevaluated today on 02/06/2021, patient was transferred to the ICU yesterday, mostly because his pulmonary status continued to deteriorate, patient remained hypoxic, continued to remove his BiPAP mask, transferred into the ICU, placed on Precedex initially, and kept him on BiPAP, however patient continued to saturate, and I was notified about the nurses that his clinical status is getting worse, recommended immediate intubation and mechanical ventilation. Patient is now intubated, mechanically ventilated. He is on assist control rate of 30 tidal volume 450 FiO2 60% and PEEP of 14. ABG showed a pO2 of 86 pCO2 of 52 pH of 7.36, patient remains on multiple drips including propofol at 40 mcg/kg/m, fentanyl 1 mcg/kg/h Nimbex 1.5 mcg/kg/m. Patient is also requiring norepinephrine at 0.1 mcg/kg/m. LDH today is extremely high over 3000. WBC count is elevated at 20.7 hemoglobin 15.7 his electrolytes are normal however his renal profile showed a BUN of 77 creatinine 1.47 chest x-ray showed patchy bilateral infiltrates, slight improvement compared to chest x-ray prior to intubation. His INR today is 5.8, hence I plan to reverse his INR are at least give him fresh frozen plasma and vitamin K in order to safely place a central line and arterial line in this patient. Reevaluated today on 02/07/2021, patient remains in the ICU, intubated and mechanically ventilated. He is on assist control rate of 30 tidal volume 450 FiO2 50% and PEEP of 14. ABG showed a pO2 of 75 pCO2 48 pH of 7.40. Chest x- ray continues to show bilateral infiltrates with a right lower lobe consolidation. No changes were made in his ventilator settings today. Agent remains on multiple drips including propofol at 40 mcg/kg/m, fentanyl at 20 mcg/kg/h Nimbex at 2 mcg/minute, norepinephrine at 0.03 mcg/kg/m, IV fluid saline at 75 mL/h he is also on enteral feedings. LDH is improving down to 1966 CRP is 9 about the same. Electrolytes are about the same but BUN is 74 creatinine is 1.35. Again chest x-ray showed no major change since admission. Education list was reviewed, patient is on allopurinol, ascorbic acid, Rocephin, vitamin D, Decadron 6 mg IV push daily, Neurontin 1600 mg twice a day, lisinopril, insulin, lorazepam, patient is on Protonix 40 mg IV push daily, Coumadin 2 mg daily. And the patient is on zinc Reevaluated today on 02/08/2021, remains in the ICU, intubated and mechanically ventilated. Patient is on assist control rate of 30 tidal volume 450 FiO2 50% PEEP is 14. ABG showed a pO2 of 73 pCO2 46 pH of 7.40 hence no changes were made in his present ventilator settings. Chest x-ray continues to show not much of a significant change, bilateral infiltrates persist. Patient is on fentanyl at 1 mcg/kg/h, propofol at 40 mcg/kg/minute, Nimbex at 2 mcg/kg/m, norepinephrine at 0.02 mcg/kg/m. Patient is on vital AF rate 45 per hour. WBC count today 16.6 hemoglobin 14 INR 1.5 patient is on Coumadin for history of DVT. Sodium 145 potassium 4.4 chloride 111 bicarb 28 BUN is 74 creatinine is 1.22. Remains on vitamin C, Rocephin, vitamin D, Decadron 6 mg IV push daily, Neurontin, lisinopril, Protonix, Coumadin 2 mg daily and is also on zinc. Reevaluated today on 02/09/2021, patient remains in the ICU intubated and mechanically ventilated. He is on assist control rate of 30 tidal volume 450 FiO2 50% PEEP is 14. His ABG showed a pO2 of 96 pCO2 48 pH of 7.37, hence I recommended decreasing the PEEP down to 12. Patient is on multiple drips including fentanyl at 1 mcg/kg/h propofol at 40 mcg/kg/m Nimbex at 1.5 mcg/kg/m norepinephrine at 0.01 mcg/kg/m is also on enteral feeding in the form of vital AF 3 5 mL per hour. His labs showed relatively normal electrolytes except for slightly elevated sodium hence his IV fluid was changed to D545 at 50 mL per hour. Patient had relatively normal electrolytes otherwise except for the sodium being 146. His BUN is 76 creatinine is 1.24 slightly higher hence we'll increase his IV fluid today. Chest x-ray continues to show bilateral infiltrates, chest x-ray is not much different from his baseline. There may be a slight improvement in his right lower lobe consolidation. Endotracheal tube had to be advanced about to see and distally. Medications list was reviewed, patient is on allopurinol, albuterol, vitamin C, Rocephin, Peridex, vitamin D, Flexeril, Decadron 6 mg IV push daily, gabapentin, insulin as per scale, lisinopril with hydrochlorothiazide, Reglan when necessary, Protonix 40 mg IV push daily, and zinc. On today's evaluation of 02/18/2021, seeing the patient for a follow-up. Note that the patient is a subsequent with associated pneumonia Combigan by right- sided pneumothorax and currently the patient is a right-sided chest tube in place. This morning, the patient remains sedated without any paralysis. He is currently on propofol running at 50 mcg/kg per minute and fentanyl is running at 1 mcg/kg/h. He seems to be quite comfortable and I would suggest further sedation weaning on this patient. He remains on a mechanical ventilator. He is on assist control mode at a tidal volume of 450, FiO2 of 65%, PEEP was at 12 and the rate of 30. Blood gases from this morning showed a pH of 7.35 with a pCO2 57 and pO2 131. Chest x-ray shows evidence of emphysema on the right. No evidence of any pneumothorax. Right-sided chest tube is in a good location. No evidence of any air leak and the Pleur-evac and output from the chest tube has been minimal at this point in time. The chest x-ray however shows increased opacity in the right lung base and some elevation right hemidiaphragm probably some right basilar atelectasis along with diffuse bilateral pulmonary infiltrates as seen earlier. Tracheostomy tube is in a good location. Of sig nificance also was some bleeding around the tracheostomy tube stoma and IV heparin was discontinued. I will suggest restarting IV heparin knowing that the patient has bilateral lower extremity DVT. Sputum samples are to be the collected. In terms of his COVID 19 related pneumonia, his inflammatory markers were elevated still. Last inflammatory markers were obtained on 02/17/2021 and dose needs to be repeated. Most recent pro-calcitonin level from yesterday was at 0.6. Meanwhile, the patient is still pressor dependent and norepinephrine infusion is running at 0.1 Christiano respiratory per minute. Urine output is adequate. Overall fluid balance has been in the order of -3 L 4 02/18/2021 and -1.3 L or yesterday. The patient is currently on diuretics with Lasix 40 mg IV every 12 hours. He continues to have extensive edema in all 4 extremity is along with some areas of skin blistering in the lower extremities. On a separate note, the patient is currently off TPN. We are able to insert a NG tube in this patient. Currently is receiving vital high protein at the rate of 10 mL an hour and will make adjustments on the rate 60 Reevaluated today on 02/20/21, patient remains in the ICU, intubated and mechanically ventilated. He is status post tracheostomy. He is on assist contr ol rate of 30 tidal volume 450 FiO2 50% and PEEP of 12. Patient remains on propofol at 10 fentanyl at 1 mcg/kg/m. Mental status is poor, today I recommended that we discontinue all sedatives and determine whether the patient is going to have any neurological improvement in his mental status. He is on feeding using vital AF at 50 mL per hour. He could not get a PEG tube placed, continues to have enteral feeding via orogastric tube. Remains on cefepime empirically. Patient is also on norepinephrine at 0.06. ABG today showed a pO2 of 80 pCO2 48 pH of 7.40. Early discitis 15.0 hemoglobin 12.8. Basic metabolic profile is normal however BUN is up to 90 creatinine 1.14. Medications were r eviewed, patient is on albuterol, allopurinol, ascorbic acid, cefepime, chlorhexidine, Decadron 6 mg IV push daily, Lasix 40 mg IV push every 12 hours, gabapentin 1600 mg twice a day, heparin , and he is also on zinc. Patient is receiving midodrine 10 mg 3 times a day. And on insulin as per protocol Accu- Cheks asked x-ray continues to show right-sided pneumothorax about 25% although the chest tube is in place, and there is also some consolidation noted at the bases bilaterally. Reevaluated today on 02/21/2021, patient remains in the ICU, intubated and mechanically ventilated. Remains on assist control rate of 30 tidal volume 450 FiO2 50% and PEEP of 12. ABG today showed a pO2 of 84 pCO2 51 pH of 7.37. Chest x-ray continues to show bilateral infiltrates. Chest x-ray continues to show a stable right-sided pneumothorax. With chest tube in place. Patient remains on norepinephrine at 0.08 mcg/kg/m, he is also on fentanyl 1 mcg/kg/h. Remains on vital AF at 50 mL per hour/goal. His IV fluid today was increased in the form of D5 W-2 50 mL per hour. Sodium was noted to be 147 today. Renal profile showed a pO2 of 95 creatinine 1.28. WBC count is 14.5 hemoglobin is 13.6. Mental status basically remains about the same. I am still recommending every day to go on sedation holiday, and continue to assess mental status, we will discontinue fentanyl this morning and hopefully get some adequate mental assessment. Remains on the COVID-19 cocktail. Remains on cefepime, Decadron 6 mg IV push daily, Lasix is 40 mg IV push every 12 hours, gabapentin, heparin, patient is also on Protonix and zinc. Objective - Vital Signs Vital signs: Vital Signs Temp 102.3 F H 02/21/21 08:00 Pulse 121 H 02/21/21 11:00 Resp 30 H 02/21/21 11:00 BP 123/72 02/21/21 11:00 Pulse Ox 94 L 02/21/21 11:00 Intake & Output 02/20/21 02/21/21 02/21/21 18:59 06:59 18:59 Intake Total 548.56 2025.821 536.44 Output Total 2765 1490 645 Balance -2216.44 535.821 -108.56 Weight 153.9 kg Intake: IV 92 Dextrose 5% in Water 1, 80 000 ml @ 50 mls/hr IV . Q20H [facility] Rx#:[id number] presssure bag 12 Intake, IV Titration 548.56 875.821 179.44 Amount Cefepime 2 gm In Sodium 100 Chloride 0.9% 100 ml @ 25 mls/hr IVPB Q8HR [facility] Rx# :[id number] Dextrose 5% in Water 1, 240 220 20 000 ml @ 50 mls/hr IV . Q20H [facility] Rx#:[id number] Norepinephrine 4 mg In 8.56 460.057 Sodium Chloride 0.9% 250 ml @ 0.05 MCG/KG/MIN 31. 453 mls/hr IV .Q8H5M [facility] Rx#:[id number] fentaNYL (PF). 1,000 mcg 200 195.764 59.44 In Sodium Chloride 0.9% 80 ml @ 0.5 MCG/KG/HR 8. 255 mls/hr IV .Q12H7M [facility] Rx#:[id number] propofoL 1,000 mg In 100 Empty Bag 1 bag @ Titrate IV .Q0M [facility] Rx#: [id number] Tube Feeding 550 265 Other 600 Output: Urine 2765 1490 645 Other: Voiding Method Indwelling Catheter Indwelling Catheter ABP, PAP, CO, CI - Last Documented Arterial Blood Pressure 95/54 - Exam GENERAL EXAM: Revealed a 60-year-old white male morbidly obese intubated and mechanically ventilated., Patient has tracheostomy , seems intact. HEAD: Normocephalic/atraumatic. Neck estimated intact. HEENT: PERRLA, EOMI, nonicteric, no neck masses, moist mucous membranes, CHEST: No chest wall deformity. Symmetrical expansion. LUNGS: Crackles bilaterally mostly at the bases. CVS: Regular rate and rhythm, normal S1 and S2, no gallops, no murmurs, no rubs ABDOMEN: Obese, Soft, nontender. No hepatosplenomegaly, normal bowel sounds, no guarding or rigidity. EXTREMITIES: No clubbing, no cyanosis, 2+ pulses and upper and lower extremities. With venous stasis changes noted in lower extremities. 2+ bipedal edema. SKIN: No rashes, except for chronic venous stasis changes and brawny discolo ration of the lower extremities. CENTRAL NERVOUS SYSTEM: Unresponsive to any stimuli, presently on fentanyl which I have placed on hold today. PSYCHIATRIC: Cannot assess patient is sedated - Labs CBC & Chem 7: 02/21/21 04:05 02/21/21 04:05 Labs: Abnormal Lab Results - Last 24 Hours (Table) 02/20/21 02/20/21 02/20/21 Range/Units 12:02 18:36 23:21 WBC (3.8-10.6) k/uL RBC (4.30-5.90) m/uL MCV (80.0-100.0) fL MCHC (31.0-37.0) g/dL Neutrophils # (1.3-7.7) k/uL Lymphocytes # (1.0-4.8) k/uL ABG pCO2 (35-45) mmHg ABG HCO3 (21-25) mmol/L ABG Total CO2 (19-24) mmol/L Sodium (137-145) mmol/L Chloride (98-107) mmol/L BUN (9-20) mg/dL Creatinine (0.66-1.25) mg/dL Glucose (74-99) mg/dL POC Glucose (mg/dL) 200 H 281 H 260 H (75-99) mg/dL Total Bilirubin (0.2-1.3) mg/dL AST (17-59) U/L ALT (4-49) U/L Total Protein (6.3-8.2) g/dL Albumin (3.5-5.0) g/dL 02/21/21 02/21/21 02/21/21 Range/Units 04:05 04:05 05:06 WBC 14.5 H (3.8-10.6) k/uL RBC 4.29 L (4.30-5.90) m/uL MCV 102.7 H (80.0-100.0) fL MCHC 30.9 L (31.0-37.0) g/dL Neutrophils # 13.4 H (1.3-7.7) k/uL Lymphocytes # 0.4 L (1.0-4.8) k/uL ABG pCO2 51 H (35-45) mmHg ABG HCO3 30 H (21-25) mmol/L ABG Total CO2 31 H (19-24) mmol/L Sodium 147 H (137-145) mmol/L Chloride 110 H (98-107) mmol/L BUN 95 H (9-20) mg/dL Creatinine 1.28 H (0.66-1.25) mg/dL Glucose 284 H (74-99) mg/dL POC Glucose (mg/dL) (75-99) mg/dL Total Bilirubin 1.9 H (0.2-1.3) mg/dL AST 83 H (17-59) U/L ALT 135 H (4-49) U/L Total Protein 5.8 L (6.3-8.2) g/dL Albumin 2.5 L (3.5-5.0) g/dL 02/21/21 Range/Units 06:11 WBC (3.8-10.6) k/uL RBC (4.30-5.90) m/uL MCV (80.0-100.0) fL MCHC (31.0-37.0) g/dL Neutrophils # (1.3-7.7) k/uL Lymphocytes # (1.0-4.8) k/uL ABG pCO2 (35-45) mmHg ABG HCO3 (21-25) mmol/L ABG Total CO2 (19-24) mmol/L Sodium (137-145) mmol/L Chloride (98-107) mmol/L BUN (9-20) mg/dL Creatinine (0.66-1.25) mg/dL Glucose (74-99) mg/dL POC Glucose (mg/dL) 239 H (75-99) mg/dL Total Bilirubin (0.2-1.3) mg/dL AST (17-59) U/L ALT (4-49) U/L Total Protein (6.3-8.2) g/dL Albumin (3.5-5.0) g/dL Microbiology - Last 24 Hours (Table) 02/18/21 13:44 Gram Stain - Preliminary Trachea Wound Culture - Preliminary Proteus penneri Strep agalactiae - (group b) Assessment and Plan Assessment: #1. Acute COVID-19, patient presented with worsening shortness of breath of 5 days duration, and she was not a candidate for Remdesivir related to severity of his hypoxia. Baricitinib was started on 02/02/2021 which will be discontinued today on 02/03/2021 related to possibility of underlying urinary tract infection. Patient was initially DO NOT RESUSCITATE CODE STATUS, however the changes CODE STATUS after she was updated on his condition when he was on the medical floor. And she reversed his CODE STATUS to full code, hence patient was transferred to the ICU on 01/06/2021, intubated and mechanically ventilated. Patient was intubated on 02/05 tracheostomy on 02/14 PEG tube could not be inserted. Patient developed a right-sided pneumothorax requiring chest tube placement continues to have a small right sided pneumothorax. And chest tube is in place. Still requiring norepinephrine intermittently. Mentation is poor, unable to assess mental status in spite of lower dose of sedation hence I will discontinue sedation today altogether. #2. Acute hypoxic respiratory failure , requiring intubation and mechanical ventilation on 01/06, patient failed BiPAP, changes CODE STATUS from DO NOT RESUSCITATE to full code. #3. Acute kidney injury related to intravascular volume depletion and dehydrati on being followed by nephrology. #4. Acute electrolytes imbalance, resolved. #5. Previous history of DVT on Coumadin, on outpatient basis, presently on heparin. 6. Obesity with BMI of 46.7 kg/m #7. Chronic back pain #8. History of COPD/asthma #9. Previous history of pancreatitis #10. Hypertension #11. Acute right-sided pneumothorax, as a complication from COVID-19 pneumonia, expected status post right sided chest tube placement by Dr. Rosa. Recommendations Continue ventilatory support. Continue same ventilator settings at present he is on assist control rate of 30 tidal volume 450 FiO2 50% PEEP of 12. No changes in vent settings made today.. Continue nutritional support. Patient is on enteral feeding, PEG tube could not be placed. Continue enteral feeding. Continue COVID-19 cocktail. Continue Decadron. Daily sedation holidays. And assessment of mental status. Continue to monitor x-rays on a daily basis as well as inflammatory markers. Continue GI and DVT prophylaxis. Prognosis is extremely poor and guarded. Continue cefepime empirically Continue gabapentin Continue heparin and hopefully transition to Coumadin again. Critical care time is over 30 minutes Time with Patient: Greater than 30
[2021-02-21 11:24] VITALS: BMI 43.5
[2021-02-21 12:01] LABS: Glucose,Whole Blood 266 mg/dL (75-99)
[2021-02-21] MEDS: DEXTROSE 5% IN WATER 1,000 ML IV SCH (12:21)
--- NOTE | 2021-02-21 12:33 | P.PN ---
Subjective Progress Note Date: 02/21/21 Follow-up for acute kidney injury and hypernatremia. Urine output of 4 L. Objective - Vital Signs Vital signs: Vital Signs Temp 102.3 F H 02/21/21 08:00 Pulse 121 H 02/21/21 11:00 Resp 30 H 02/21/21 11:00 BP 123/72 02/21/21 11:00 Pulse Ox 94 L 02/21/21 11:00 Intake & Output 02/20/21 02/21/21 02/21/21 18:59 06:59 18:59 Intake Total 548.56 2025.821 790.44 Output Total 2765 1490 645 Balance -2216.44 535.821 145.44 Weight 153.9 kg 153.9 kg Intake: IV 92 Dextrose 5% in Water 1, 80 000 ml @ 50 mls/hr IV . Q20H [facility] Rx#:[id number] presssure bag 12 Intake, IV Titration 548.56 875.821 433.44 Amount Cefepime 2 gm In Sodium 100 Chloride 0.9% 100 ml @ 25 mls/hr IVPB Q8HR [facility] Rx# :[id number] Dextrose 5% in Water 1, 240 220 20 000 ml @ 50 mls/hr IV . Q20H [facility] Rx#:[id number] Norepinephrine 4 mg In 8.56 460.057 254 Sodium Chloride 0.9% 250 ml @ 0.05 MCG/KG/MIN 31. 453 mls/hr IV .Q8H5M [facility] Rx#:[id number] fentaNYL (PF). 1,000 mcg 200 195.764 59.44 In Sodium Chloride 0.9% 80 ml @ 0.5 MCG/KG/HR 8. 255 mls/hr IV .Q12H7M [facility] Rx#:[id number] propofoL 1,000 mg In 100 Empty Bag 1 bag @ Titrate IV .Q0M [facility] Rx#: [id number] Tube Feeding 550 265 Other 600 Output: Urine 2765 1490 645 Other: Voiding Method Indwelling Catheter Indwelling Catheter Indwelling Catheter ABP, PAP, CO, CI - Last Documented Arterial Blood Pressure 95/54 - Exam COVID-19 isolation refer to primary team exam - Labs CBC & Chem 7: 02/21/21 04:05 02/21/21 04:05 Labs: Abnormal Lab Results - Last 24 Hours (Table) 02/20/21 02/20/21 02/21/21 Range/Units 18:36 23:21 04:05 WBC 14.5 H (3.8-10.6) k/uL RBC 4.29 L (4.30-5.90) m/uL MCV 102.7 H (80.0-100.0) fL MCHC 30.9 L (31.0-37.0) g/dL Neutrophils # 13.4 H (1.3-7.7) k/uL Lymphocytes # 0.4 L (1.0-4.8) k/uL ABG pCO2 (35-45) mmHg ABG HCO3 (21-25) mmol/L ABG Total CO2 (19-24) mmol/L Sodium (137-145) mmol/L Chloride (98-107) mmol/L BUN (9-20) mg/dL Creatinine (0.66-1.25) mg/dL Glucose (74-99) mg/dL POC Glucose (mg/dL) 281 H 260 H (75-99) mg/dL Total Bilirubin (0.2-1.3) mg/dL AST (17-59) U/L ALT (4-49) U/L Total Protein (6.3-8.2) g/dL Albumin (3.5-5.0) g/dL 02/21/21 02/21/21 02/21/21 Range/Units 04:05 05:06 06:11 WBC (3.8-10.6) k/uL RBC (4.30-5.90) m/uL MCV (80.0-100.0) fL MCHC (31.0-37.0) g/dL Neutrophils # (1.3-7.7) k/uL Lymphocytes # (1.0-4.8) k/uL ABG pCO2 51 H (35-45) mmHg ABG HCO3 30 H (21-25) mmol/L ABG Total CO2 31 H (19-24) mmol/L Sodium 147 H (137-145) mmol/L Chloride 110 H (98-107) mmol/L BUN 95 H (9-20) mg/dL Creatinine 1.28 H (0.66-1.25) mg/dL Glucose 284 H (74-99) mg/dL POC Glucose (mg/dL) 239 H (75-99) mg/dL Total Bilirubin 1.9 H (0.2-1.3) mg/dL AST 83 H (17-59) U/L ALT 135 H (4-49) U/L Total Protein 5.8 L (6.3-8.2) g/dL Albumin 2.5 L (3.5-5.0) g/dL 02/21/21 Range/Units 12:00 WBC (3.8-10.6) k/uL RBC (4.30-5.90) m/uL MCV (80.0-100.0) fL MCHC (31.0-37.0) g/dL Neutrophils # (1.3-7.7) k/uL Lymphocytes # (1.0-4.8) k/uL ABG pCO2 (35-45) mmHg ABG HCO3 (21-25) mmol/L ABG Total CO2 (19-24) mmol/L Sodium (137-145) mmol/L Chloride (98-107) mmol/L BUN (9-20) mg/dL Creatinine (0.66-1.25) mg/dL Glucose (74-99) mg/dL POC Glucose (mg/dL) 266 H (75-99) mg/dL Total Bilirubin (0.2-1.3) mg/dL AST (17-59) U/L ALT (4-49) U/L Total Protein (6.3-8.2) g/dL Albumin (3.5-5.0) g/dL Microbiology - Last 24 Hours (Table) 02/18/21 13:44 Gram Stain - Preliminary Trachea Wound Culture - Preliminary Proteus penneri Strep agalactiae - (group b) Assessment and Plan Assessment: #1 acute kidney injury secondary to hemodynamic and septic ATN. #2 acute hypoxic respiratory failure secondary to COVID-19 pneumonia. #3 hyponatremia secondary to decreased by mouth intake. #4 lower extremity edema Plan: #1 continue with Lasix and D5 water. #2 Increase free water via acute seats at the rate of 50 ML's an hour. #3 ICU care
[2021-02-21] MEDS: ALBUTEROL HFA INHALER INHALATION PRN ×2 (14:52→20:31)
[2021-02-21 17:57] LABS: Glucose,Whole Blood 250 mg/dL (75-99)
--- NOTE | 2021-02-21 20:11 | P.PN ---
Subjective Patient is 60-year-old male with a known history of asthma/COPD, history of DVT, chronic low back pain, osteoarthritis and morbid obesity with BMI 46.7 presents to ER with complaints of generalized weakness and fatigue and worsening shortness of breath and exertional dyspnea. Patient states that he has been having symptoms for the past 5-6 days and his and other family members were also tested positive for covid 19 infection. Patient has been having generalized weakness and fatigue. No complaints of chest pain. Does have cough without any sputum production. No nausea vomiting or abdominal pain or diarrhea. Chest x-ray showed diffuse residual coarsening and moderate patchy airspace opacities bilaterally. Findings may represent Covid 19 pneumonia. EKG showed normal sinus rhythm Laboratory data showed WBC 7.6 hemoglobin 10.9 and platelets 167 lymphocytes 0.4 INR 1.9 and d-dimer is 1.16 Sodium 126 potassium 4.8 chloride 89 BUN 6 T5 and creatinine 1.85 calcium 7.9 AST 219 ALT 55 alk phos 63 ALT is 2347 and CRP 24.0 Procalcitonin 0.69, Covid 19 PCR detected. Patient is not vaccinated. 02/03/2021 Patient is currently in the emergency room awaiting for self care unit transfer. Patient is currently on BiPAP 16 x 6 with 100% FiO2. Patient is still having shortness of breath and he appears to be in mild distress and unable to tolerate BiPAP. Otherwise patient has been afebrile. Currently being continued on dexamethasone, warfarin dosing and multivitamins. Patient was started on ceftriaxone for possible urinary tract infection. Laboratory data showed sodium 128 potassium 4.3 chloride 91 BUN 60 and creatinine 1.8 LDH 893 and CRP 21.9 No complaints of chest pain. Patient is awake alert and oriented 3. Pulmonary is on board. 02/04/2021 Patient remains in the emergency department. Currently on BiPAP with 100% FiO2. Patient is saturating mid 80s. Sitting up in the bed. Still tachypneic and anxious. Awake alert and oriented. Laboratory showed WBC 11.2 hemoglobin 15.7 and platelets 202 lymphocytes 0.4 Sodium 131 potassium 4.3 chloride 94 bicarb is 28 BUN 75 creatinine 1.42. Urine culture is pending. Patient is being current on ceftriaxone. Patient is being continued on dexamethasone, Coumadin and multivitamins. Pulmonary is following. 02/05/2021 Patient is on BiPAP with FiO2 100%. Patient is restless and tachypneic. Pulling out tubes. Oxygen saturations around 82% to 90% while on BiPAP. Patient has been afebrile. Currently being continued on dexamethasone and Coumadin dosing. INR is 4.8 toda y. Laboratory data showed WBC 16.1 hemoglobin 16.1 platelets 170 BUN 77 creatinine 1.16 and troponin 0 0.042. Patient is also being current ceftriaxone for acute urinary tract infection. Urine culture showed no growth. Pulmonary is following. Patient does not want to get intubated. 02/06/2021 Patient was transferred to MICU. Intubated and on mechanical ventilator. Patient is sedated and multiple drips including propofol, fentanyl and Nimbex. Patient is also requiring norepinephrine. Laboratory showed WBC 20.7 hemoglobin 15.7 platelets 173 INR 5.8 Sodium 138 potassium 4.6 BUN 77 creatinine 1.43 LDH 3075 and CRP 15.1 AST 262 ALT 93 alk phos 94 and blood sugar is 188. Patient is being continued ceftriaxone, dexamethasone IV and Coumadin on hold. Patient is also on IV hydration with normal saline at 75 cc/h. Chest x-ray showed patchy infiltrates throughout both lung griffiths no change. Correlate clinically and follow-up and resolution is recommended. 02/07/2021 Patient is seen and evaluated and follow-up continues to be closely monitored in the ICU with pulmonary speeder frame tender following closely. Patient remains on sedation with propofol and fentanyl and is also continued on Nimbex and currently attempting to wean norepinephrine. Patient also continues on IV ceftriaxone for the possibility of a UTI although urine culture show no growth for 18 hours and will repeat pro calcitonin and consider discontinuing IV antibiotics. Patient also continues on vitamin and zinc along with Lovenox and IV dexamethasone and will continue. Pulmonary speeder frame tender following and patient continues to be on mechanical vent and FiO2 is at 50% with a PEEP of 14 and per nursing staff no attempts at weaning today. Chest x-ray was done and pending. Inflammatory markers continue to be elevated although trending down. 02/08/2021 This is a pleasant 60 years old male with multiple medical problems was admitted for respiratory distress secondary to bilateral Covid pneumonia and acute hypoxic respiratory failure and on the top of that bacterial superinfection is suspected with his procalcitonin elevated at 0.6 and 0.43 and patient was placed on ceftriaxone currently. Cystoscopy the ICU monitor closely and followed by pulmonary/critical care team. Labs showing leukocytosis of 16.6 while his steroids. D-dimer 1.5, LDH elevated 1965, CRP 9.0. Mildly elevated liver enzymes. He is also on warfarin with INR is subtherapeutic at 1.5. Creatinine is trending down to 1.4 down to 1.2 however patient looks like he has chronic kidney disease stage III. Currently covered with vitamin C, vitamin D, zinc, dexamethasone, ceftriaxone, normal saline 75 mL/h, warfarin and Protonix 02/09/2021 The patient remains in the ICU sedated and intubated on mechanical ventilation with pulmonary/critical care team following him closely. Patient remains clinically the same is still tachypneic he still on critical condition. WBC slightly better 13.6, liver enzymes mildly elevated, INR is 1.6 and today he will receive 3 mg of iodine. Sodium slightly elevated 146 and his IV fluid was changed to D5 half-normal saline. He remains on ceftriaxone, dexamethasone, multiple vitamins and warfarin 02/10/2021 Patient remains in critical condition needing intubation and sedation with pulmonary/critical care team following him closely and help with vent management. Distal significantly tachypneic. jesus stable, WBC is normal today 9.6. Creatinine 1.1. INR was 1.6 yesterday and 1.5 today and her receiving 3 mg today. Still on steroids, vitamins, also he received 1 time dose of Lasix while his ceftriaxone and D5 half-normal saline at 75Milliliters per hour both are discontinued 02/11/2021 Patient is in the ICU status post intubation. He is on mechanical ventilation with pulmonary/critical care team on the case. He still tachypneic with FiO2 of 70%. Labs showing leukocytosis 16 K, INR actually is trending down 1.4 and received 6 mg of warfarin today. Creatinine within baseline of 1.26. Sodium is stable at 145. His hydrochlorothiazide/lisinopril was discontinued for borderline blood pres sure on midodrine started. Remains on dexamethasone, vitamin C, D and zinc. 02/12/2021 patient remains in the ICU intubated and sedated with no much progress in his clinical condition despite optical medical treatment and prolonged hospitalization with pulmonary/critical care team following him closely. Today surgery team were consulted for PEG tube and tracheostomy placement on 02/14 Also he has bilateral DVT while his on warfarin, patient was started on heparin drip. He remains on dexamethasone, multiple vitamins. 02/13/2021 Patient is in the ICU status post intubation and mechanical ventilation with pulmonary/critical care team followed closely. Patient does not make much progress and pulmonary team recommendation PEG tube and tracheostomy placement on the consulted surgery with planned to do the procedure tomorrow. I called the spouse Mrs. Mervat morgan At [phone] and I discussed the case with her including the plan for tracheostomy and PEG tube placement by surgery team tomorrow and all her questions were answered to her satisfaction. Please there is no consent obtained by medical team for this procedure and this has been deferred to surgery team Abdomen the patient is tachypneic hypoxic, leukocytosis of 13 K which is slightly improving Also patient is on heparin drip for newly diagnosed bilateral DVT He is also on dexamethasone, vitamin C, D and zinc. 02/14/2021 Patient with no significant improvement she underwent tracheostomy and PEG tube placement by surgery team Other than that she remains on mechanical ventilation 02/15/2021 Patient remains in the ICU intubated and sedated with pulmonary/critical care team following him closely. He is status post tracheostomy and PEG tube placement. Labs look same as well as his hemodynamics is still on 50% FiO2 and tachypneic and 30. Renee stable at 13,000, liver enzymes still mildly elevated, creatinine 1.0. Sodium slightly improved down to 147 while he is on D5W at 75 mL/h. He still on dexamethasone, vitamin C D and zinc. Also he is on heparin drip for his bilateral DVT diagnosed on 02/1202/16/2021 patient remains intubated and sedated in the ICU with pulmonary/critical care team helped with mechanical ventilation. No much change today. Her FiO2 requirement increased to 70%. Labs looks stable or slightly improved with WBC down to 11.1, creatinine to 0.9, liver enzymes slightly better and sodium slightly bigger at 146. She remains on the same treatment of steroids, vitamins, heparin drip. Patient was taken off Nimbex today and kept on fentanyl and propofol 02/17/2021 Patient remains in the ICU sedated and intubated. With pulmonary/critical care team helping with the vent management. Patient hospital course today has been complicated by right lung collapse secondary to pneumothorax apparent on his chest x-ray from today. He status post chest tube placement. Labs reviewed, it looks stable, liver enzymes slightly trending up. Today IV Lasix 20 mg added. [employer]. Continue with dexamethasone, multiple vitamins, heparin drip. 02/18/2021 Patient still intubated and sedated in the ICU with pulmonary/critical care team following closely. Patient status right-sided chest tube placement for right pneumothorax. Test Brookecalcitonin slightly increased 0.4 up to 0.6. However he finished his antibiotic dose. He still on dexamethasone and multiple vitamins and heparin drip. He is on IV Lasix 40 mg twice daily. He is getting TPN as well 02/19/2021 Patient's remains in critical condition while intubated and sedated in the ICU with pulmonary/critical care team following him closely. FiO2 lower to 50% today. He is running a fever of 102.5. And the WBC is 19,000. D-dimer elevated 4.3 but patient is on heparin drip for bilateral DVT. Inflammatory markers slightly better LDH 1286 but increased CRP 43.5. His tracheostomy wound culture growing gram-negative bacilli while chest x-ray showing diffuse bilateral infiltrates. Cefepime was added today while insulin increased slightly to 26 at bedtime. Discussed case with pulmonary/critical care team condition remains with guarded prognosis 02/20/2021 Patient remains critically ill in the ICU. Pulmonary/critical care team following the patient and help with vent management. He remains with FiO2 of 50%. At least a running fever of 102. Patient is tachypneic at 30. Labs show leukocytosis improvement slightly down to 15 K. Sodium 144 BMP is unremarkable. Chest x-ray showing 25% right pneumothorax and bilateral infiltrates. Patient remains on cefepime, dexamethasone, vitamins and heparin drip. D5W has been held at 20 mL per hour 02/21/2021 Patient's still sedated and intubated, however he's undergoing sedation holidays to assess his mental status with pulmonary/critical care team followed closely. This vent setting is reviewed. His FiO2 of 50%, his breathing is less tachypneic today. MOC slightly better 14 gait. Creatinine up to 1.2 sodium up to 147 and her menstrual D5W and Lasix per [employer]. Cystoscopy dexamethasone and vitamins is covered with cefepime with sputum culture growing Proteus and Streptococcus agalactae. He is on heparin drip, Lasix IV and his insulin dose increased today to 33 units at night Objective - Vital Signs Vital signs: Vital Signs Temp 102.0 F H 02/21/21 12:00 Pulse 109 H 02/21/21 15:00 Resp 30 H 02/21/21 15:00 BP 123/72 02/21/21 11:00 Pulse Ox 95 02/21/21 15:00 Intake & Output 02/20/21 02/21/21 02/21/21 18:59 06:59 18:59 Intake Total 548.56 2025.821 1399.674 Output Total 2765 1490 1245 Balance -2216.44 535.821 154.674 Weight 153.9 kg 153.9 kg Intake: IV 304 Dextrose 5% in Water 1, 280 000 ml @ 50 mls/hr IV . Q20H [facility] Rx#:[id number] presssure bag 24 Intake, IV Titration 548.56 875.821 598.674 Amount Cefepime 2 gm In Sodium 100 Chloride 0.9% 100 ml @ 25 mls/hr IVPB Q8HR [facility] Rx# :[id number] Dextrose 5% in Water 1, 240 220 20 000 ml @ 50 mls/hr IV . Q20H [facility] Rx#:[id number] Norepinephrine 4 mg In 8.56 460.057 419.234 Sodium Chloride 0.9% 250 ml @ 0.05 MCG/KG/MIN 31. 453 mls/hr IV .Q8H5M [facility] Rx#:[id number] fentaNYL (PF). 1,000 mcg 200 195.764 59.44 In Sodium Chloride 0.9% 80 ml @ 0.5 MCG/KG/HR 8. 255 mls/hr IV .Q12H7M [facility] Rx#:[id number] propofoL 1,000 mg In 100 Empty Bag 1 bag @ Titrate IV .Q0M [facility] Rx#: [id number] Tube Feeding 550 497 Other 600 Output: Urine 2765 1490 1245 Other: Voiding Method Indwelling Catheter Indwelling Catheter Indwelling Catheter ABP, PAP, CO, CI - Last Documented Arterial Blood Pressure 101/54 - Exam -GENERAL: The patient is intubated and sedated HEENT: Pupils are round and equally reacting to light. EOMI. No scleral icterus. No conjunctival pallor. Normocephalic, atraumatic. No pharyngeal erythema. No thyromegaly. CARDIOVASCULAR: S1 and S2 present. No murmurs, rubs, or gallops. -PULMONARY: Chest is clear to auscultation, no wheezing . bilateral crepitation. Right-sided chest tube Abdomen: soft, nontender, nondistended, normoactive bowel sounds. No palpable organomegaly. MUSCULOSKELETAL: No joint swelling or deformity. EXTREMITIES: No cyanosis, clubbing, or pedal edema. NEUROLOGICAL: Gross neurological examination did not reveal any focal deficits. SKIN: No rashes. no petechiae. - Labs CBC & Chem 7: 02/21/21 04:05 02/21/21 04:05 Labs: Abnormal Lab Results - Last 24 Hours (Table) 02/20/21 02/20/21 02/21/21 Range/Units 18:36 23:21 04:05 WBC 14.5 H (3.8-10.6) k/uL RBC 4.29 L (4.30-5.90) m/uL MCV 102.7 H (80.0-100.0) fL MCHC 30.9 L (31.0-37.0) g/dL Neutrophils # 13.4 H (1.3-7.7) k/uL Lymphocytes # 0.4 L (1.0-4.8) k/uL ABG pCO2 (35-45) mmHg ABG HCO3 (21-25) mmol/L ABG Total CO2 (19-24) mmol/L Sodium (137-145) mmol/L Chloride (98-107) mmol/L BUN (9-20) mg/dL Creatinine (0.66-1.25) mg/dL Glucose (74-99) mg/dL POC Glucose (mg/dL) 281 H 260 H (75-99) mg/dL Total Bilirubin (0.2-1.3) mg/dL AST (17-59) U/L ALT (4-49) U/L Total Protein (6.3-8.2) g/dL Albumin (3.5-5.0) g/dL 02/21/21 02/21/21 02/21/21 Range/Units 04:05 05:06 06:11 WBC (3.8-10.6) k/uL RBC (4.30-5.90) m/uL MCV (80.0-100.0) fL MCHC (31.0-37.0) g/dL Neutrophils # (1.3-7.7) k/uL Lymphocytes # (1.0-4.8) k/uL ABG pCO2 51 H (35-45) mmHg ABG HCO3 30 H (21-25) mmol/L ABG Total CO2 31 H (19-24) mmol/L Sodium 147 H (137-145) mmol/L Chloride 110 H (98-107) mmol/L BUN 95 H (9-20) mg/dL Creatinine 1.28 H (0.66-1.25) mg/dL Glucose 284 H (74-99) mg/dL POC Glucose (mg/dL) 239 H (75-99) mg/dL Total Bilirubin 1.9 H (0.2-1.3) mg/dL AST 83 H (17-59) U/L ALT 135 H (4-49) U/L Total Protein 5.8 L (6.3-8.2) g/dL Albumin 2.5 L (3.5-5.0) g/dL 02/21/21 Range/Units 12:00 WBC (3.8-10.6) k/uL RBC (4.30-5.90) m/uL MCV (80.0-100.0) fL MCHC (31.0-37.0) g/dL Neutrophils # (1.3-7.7) k/uL Lymphocytes # (1.0-4.8) k/uL ABG pCO2 (35-45) mmHg ABG HCO3 (21-25) mmol/L ABG Total CO2 (19-24) mmol/L Sodium (137-145) mmol/L Chloride (98-107) mmol/L BUN (9-20) mg/dL Creatinine (0.66-1.25) mg/dL Glucose (74-99) mg/dL POC Glucose (mg/dL) 266 H (75-99) mg/dL Total Bilirubin (0.2-1.3) mg/dL AST (17-59) U/L ALT (4-49) U/L Total Protein (6.3-8.2) g/dL Albumin (3.5-5.0) g/dL Microbiology - Last 24 Hours (Table) 02/18/21 13:44 Gram Stain - Preliminary Trachea Wound Culture - Preliminary Proteus penneri Strep agalactiae - (group b) Assessment and Plan Assessment: Bilateral Covid pneumonia, with superimposed bacterial infection Acute hypoxic respiratory failure, requiring mechanical ventilation, status post tracheostomy and PEG tube placement on 02/14 Increased inflammatory markers Right pneumothorax status post chest tube placement on 02/17 Chronic kidney disease, stage III On IV Lasix history of DVT currently on anticoagulation with Coumadin. Morbid obesity with BMI 46.7 Chronic low back pain COPD/asthma Osteoarthritis Plan: This is a pleasant 60 years old male who presents with Bilateral Covid pneumonia and hypoxia Continue with vitamin C, vitamin D, and zinc. Continue with dexamethasone Pulmonary team consult Continue with mechanical ventilation for critical care team. Status post tracheostomy and PEG tube placement on 02/14 Heparin drip for DVT Right-sided chest tube add cefepime, follow-up once culture results from tracheostomy Labs and medication were reviewed.. Continue same treatment. Continue with symptomatic treatment. Resume home medication. Monitor lytes and vitals. DVT and GI prophylaxis. Further recommendations as per clinical course of the patient DVT prophylaxis: warfarin/Heparin drip GI Prophylaxis: Ppi Prognosis is guarded
[2021-02-21] MEDS ORDERED: INSULIN DETEMIR (LEVEMIR) 100 UNIT/ML SYR SQ SCH (21:00)
[2021-02-21] MEDS ORDERED: DEXTROSE 5% IN WATER 100 ML with AMIODARONE 150 MG IV ONE (22:30)
[2021-02-21] MEDS ORDERED: AMIODARONE IN DEXTROSE,ISO-OSM 150 MG/100 ML PLAST..BAG IV ONE (22:35)
[2021-02-21] MEDS ORDERED: AMIODARONE IN DEXTROSE,ISO-OSM 360 MG/200 ML PLAST..BAG IV ONE (22:35)
[2021-02-21] MEDS ORDERED: AMIODARONE 360 MG in DEXTROSE 5% IN WATER 200 ML IV ONE ×2 (22:45)
[2021-02-21 23:58] LABS: Glucose,Whole Blood 256 mg/dL (75-99)
[2021-02-22] MEDS: DEXTROSE 5% IN WATER 1,000 ML IV SCH ×5 (01:42→18:21)
[2021-02-22] MEDS: NOREPINEPHRINE 4 MG in SODIUM CHLORIDE 0.9% 250 ML IV SCH ×4 (02:25→12:18)
[2021-02-22 03:52] LABS: HCT 45.4 % (39.0-53.0); Hypochromasia Marked; MCH 32.5 pg (25.0-35.0); MCHC 30.9 g/dL (31.0-37.0); MCV 105.1 fL (80.0-100.0); Macrocytosis Moderate; Mean Platelet Volume 10.6; Platelet Count 160 k/uL (150-450); RBC 4.32 m/uL (4.30-5.90); WBC 15.5 k/uL (3.8-10.6)
[2021-02-22 03:55] LABS: Albumin 2.5 g/dL (3.5-5.0); Calcium 8.6 mg/dL (8.4-10.2); Potassium 4.4 mmol/L (3.5-5.1); Total Bilirubin 1.8 mg/dL (0.2-1.3)
[2021-02-22 04:18] LABS: Band Neutrophils % 9 %; Lymphocytes # (M) 0.31 k/uL (1.0-4.8); Monocytes # (M) 0.62 k/uL (0-1.0); Neutrophils % (M) 85 %; Nucleated Red Blood Cells 0 /100 WBC (0-0); Total Cells Counted 100
[2021-02-22 04:19] LABS: Toxic Granulation Present
[2021-02-22] MEDS: AMIODARONE 450 MG in DEXTROSE 5% IN WATER 250 ML IV SCH ×4 (05:16→20:56)
[2021-02-22 05:22] LABS: Glucose,Whole Blood 229 mg/dL (75-99)
[2021-02-22] MEDS: INSULIN ASPART (NovoLOG) 100 UNIT/ML VIAL SQ SCH ×4 (05:24→18:20)
[2021-02-22] MEDS: MIDODRINE 5 MG TAB PO SCH ×3 (06:03→16:52)
[2021-02-22 06:04] LABS: ABG Base Excess 3.1 mmol/L; ABG HCO3 29 mmol/L (21-25); ABG Oxygen Saturation 96.4 % (94-97); ABG PCO2 54 mmHg (35-45); ABG PH 7.34 (7.35-7.45); ABG PO2 84 mmHg (83-108); ABG TCO2 31 mmol/L (19-24); Allen Test Performed? Yes
[2021-02-22] MEDS ORDERED: INSULIN DETEMIR (LEVEMIR) 100 UNIT/ML SYR SQ ONE (08:18)
--- NOTE | 2021-02-22 09:22 | XR ---
EXAMINATION TYPE: XR chest 1V portable DATE OF EXAM: 02/22/2021 COMPARISON: 02/20/2021 HISTORY: 60 years Male. STUDY INDICATION GIVEN: follow up pneumothorax, shortness of breath . TECHNIQUE: AP semiupright chest radiograph IMPRESSION: Somewhat limited study due to patient rotation and tilt. Slightly decreased size of right apical pneumothorax. Stable right thoracostomy tube with postprocedu ral changes in the right chest wall. Small right pleural effusion, decreased in size compared to prio r. Slightly decreased bilateral patchy and interstitial opacities. Apparent paraspinal opacities may be reflective of mediastinal air. Nonenlarged cardiac silhouette. Stable tracheostomy. The enteric tube appears to be in the esophagus. The termination of the enteric tube is not included on this image.Right CVC tip projects in the right atrium. Stable osseous structures.
[2021-02-22] MEDS: ALBUTEROL HFA INHALER INHALATION PRN ×3 (09:27→15:45)
[2021-02-22] MEDS: ASCORBIC ACID 500 MG TAB PO SCH (09:47)
[2021-02-22] MEDS: PANTOPRAZOLE 40 MG/10 ML VIAL IVP SCH (09:47)
[2021-02-22] MEDS: FUROSEMIDE 10 MG/ML 4 ML VIAL IV SCH (09:47)
[2021-02-22] MEDS: CHOLECALCIFEROL 25 MCG (1000 IU) TABLET PO SCH (09:47)
[2021-02-22] MEDS: allopurinoL 300 MG TAB PO SCH ×2 (09:47→20:54)
[2021-02-22] MEDS: GABAPENTIN 400 MG CAP PO SCH ×2 (09:48→20:54)
[2021-02-22] MEDS: ZINC SULFATE 220 MG CAP PO SCH (09:48)
[2021-02-22] MEDS: DEXAMETHASONE SOD PHOSPHATE 10 MG/ML 1 ML VIAL IVP SCH (09:57)
[2021-02-22] MEDS: CEFEPIME 2 GM in SODIUM CHLORIDE 0.9% 100 ML IVPB SCH ×3 (09:57→23:14)
--- NOTE | 2021-02-22 10:02 | P.PN ---
Subjective Patient is 60-year-old male with a known history of asthma/COPD, history of DVT, chronic low back pain, osteoarthritis and morbid obesity with BMI 46.7 presents to ER with complaints of generalized weakness and fatigue and worsening shortness of breath and exertional dyspnea. Patient states that he has been having symptoms for the past 5-6 days and his and other family members were also tested positive for covid 19 infection. Patient has been having generalized weakness and fatigue. No complaints of chest pain. Does have cough without any sputum production. No nausea vomiting or abdominal pain or diarrhea. Chest x-ray showed diffuse residual coarsening and moderate patchy airspace opacities bilaterally. Findings may represent Covid 19 pneumonia. EKG showed normal sinus rhythm Laboratory data showed WBC 7.6 hemoglobin 10.9 and platelets 167 lymphocytes 0.4 INR 1.9 and d-dimer is 1.16 Sodium 126 potassium 4.8 chloride 89 BUN 6 T5 and creatinine 1.85 calcium 7.9 AST 219 ALT 55 alk phos 63 ALT is 2347 and CRP 24.0 Procalcitonin 0.69, Covid 19 PCR detected. Patient is not vaccinated. 02/03/2021 Patient is currently in the emergency room awaiting for self care unit transfer. Patient is currently on BiPAP 16 x 6 with 100% FiO2. Patient is still having shortness of breath and he appears to be in mild distress and unable to tolerate BiPAP. Otherwise patient has been afebrile. Currently being continued on dexamethasone, warfarin dosing and multivitamins. Patient was started on ceftriaxone for possible urinary tract infection. Laboratory data showed sodium 128 potassium 4.3 chloride 91 BUN 60 and creatinine 1.8 LDH 893 and CRP 21.9 No complaints of chest pain. Patient is awake alert and oriented 3. Pulmonary is on board. 02/04/2021 Patient remains in the emergency department. Currently on BiPAP with 100% FiO2. Patient is saturating mid 80s. Sitting up in the bed. Still tachypneic and anxious. Awake alert and oriented. Laboratory showed WBC 11.2 hemoglobin 15.7 and platelets 202 lymphocytes 0.4 Sodium 131 potassium 4.3 chloride 94 bicarb is 28 BUN 75 creatinine 1.42. Urine culture is pending. Patient is being current on ceftriaxone. Patient is being continued on dexamethasone, Coumadin and multivitamins. Pulmonary is following. 02/05/2021 Patient is on BiPAP with FiO2 100%. Patient is restless and tachypneic. Pulling out tubes. Oxygen saturations around 82% to 90% while on BiPAP. Patient has been afebrile. Currently being continued on dexamethasone and Coumadin dosing. INR is 4.8 toda y. Laboratory data showed WBC 16.1 hemoglobin 16.1 platelets 170 BUN 77 creatinine 1.16 and troponin 0 0.042. Patient is also being current ceftriaxone for acute urinary tract infection. Urine culture showed no growth. Pulmonary is following. Patient does not want to get intubated. 02/06/2021 Patient was transferred to MICU. Intubated and on mechanical ventilator. Patient is sedated and multiple drips including propofol, fentanyl and Nimbex. Patient is also requiring norepinephrine. Laboratory showed WBC 20.7 hemoglobin 15.7 platelets 173 INR 5.8 Sodium 138 potassium 4.6 BUN 77 creatinine 1.43 LDH 3075 and CRP 15.1 AST 262 ALT 93 alk phos 94 and blood sugar is 188. Patient is being continued ceftriaxone, dexamethasone IV and Coumadin on hold. Patient is also on IV hydration with normal saline at 75 cc/h. Chest x-ray showed patchy infiltrates throughout both lung griffiths no change. Correlate clinically and follow-up and resolution is recommended. 02/07/2021 Patient is seen and evaluated and follow-up continues to be closely monitored in the ICU with pulmonary sausage linker following closely. Patient remains on sedation with propofol and fentanyl and is also continued on Nimbex and currently attempting to wean norepinephrine. Patient also continues on IV ceftriaxone for the possibility of a UTI although urine culture show no growth for 18 hours and will repeat pro calcitonin and consider discontinuing IV antibiotics. Patient also continues on vitamin and zinc along with Lovenox and IV dexamethasone and will continue. Pulmonary sausage linker following and patient continues to be on mechanical vent and FiO2 is at 50% with a PEEP of 14 and per nursing staff no attempts at weaning today. Chest x-ray was done and pending. Inflammatory markers continue to be elevated although trending down. 02/08/2021 This is a pleasant 60 years old male with multiple medical problems was admitted for respiratory distress secondary to bilateral Covid pneumonia and acute hypoxic respiratory failure and on the top of that bacterial superinfection is suspected with his procalcitonin elevated at 0.6 and 0.43 and patient was placed on ceftriaxone currently. Cystoscopy the ICU monitor closely and followed by pulmonary/critical care team. Labs showing leukocytosis of 16.6 while his steroids. D-dimer 1.5, LDH elevated 1965, CRP 9.0. Mildly elevated liver enzymes. He is also on warfarin with INR is subtherapeutic at 1.5. Creatinine is trending down to 1.4 down to 1.2 however patient looks like he has chronic kidney disease stage III. Currently covered with vitamin C, vitamin D, zinc, dexamethasone, ceftriaxone, normal saline 75 mL/h, warfarin and Protonix 02/09/2021 The patient remains in the ICU sedated and intubated on mechanical ventilation with pulmonary/critical care team following him closely. Patient remains clinically the same is still tachypneic he still on critical condition. WBC slightly better 13.6, liver enzymes mildly elevated, INR is 1.6 and today he will receive 3 mg of iodine. Sodium slightly elevated 146 and his IV fluid was changed to D5 half-normal saline. He remains on ceftriaxone, dexamethasone, multiple vitamins and warfarin 02/10/2021 Patient remains in critical condition needing intubation and sedation with pulmonary/critical care team following him closely and help with vent management. Distal significantly tachypneic. jesus stable, WBC is normal today 9.6. Creatinine 1.1. INR was 1.6 yesterday and 1.5 today and her receiving 3 mg today. Still on steroids, vitamins, also he received 1 time dose of Lasix while his ceftriaxone and D5 half-normal saline at 75Milliliters per hour both are discontinued 02/11/2021 Patient is in the ICU status post intubation. He is on mechanical ventilation with pulmonary/critical care team on the case. He still tachypneic with FiO2 of 70%. Labs showing leukocytosis 16 K, INR actually is trending down 1.4 and received 6 mg of warfarin today. Creatinine within baseline of 1.26. Sodium is stable at 145. His hydrochlorothiazide/lisinopril was discontinued for borderline blood pres sure on midodrine started. Remains on dexamethasone, vitamin C, D and zinc. 02/12/2021 patient remains in the ICU intubated and sedated with no much progress in his clinical condition despite optical medical treatment and prolonged hospitalization with pulmonary/critical care team following him closely. Today surgery team were consulted for PEG tube and tracheostomy placement on 02/14 Also he has bilateral DVT while his on warfarin, patient was started on heparin drip. He remains on dexamethasone, multiple vitamins. 02/13/2021 Patient is in the ICU status post intubation and mechanical ventilation with pulmonary/critical care team followed closely. Patient does not make much progress and pulmonary team recommendation PEG tube and tracheostomy placement on the consulted surgery with planned to do the procedure tomorrow. I called the spouse Mrs. Mervat morgan At [phone] and I discussed the case with her including the plan for tracheostomy and PEG tube placement by surgery team tomorrow and all her questions were answered to her satisfaction. Please there is no consent obtained by medical team for this procedure and this has been deferred to surgery team Abdomen the patient is tachypneic hypoxic, leukocytosis of 13 K which is slightly improving Also patient is on heparin drip for newly diagnosed bilateral DVT He is also on dexamethasone, vitamin C, D and zinc. 02/14/2021 Patient with no significant improvement she underwent tracheostomy and PEG tube placement by surgery team Other than that she remains on mechanical ventilation 02/15/2021 Patient remains in the ICU intubated and sedated with pulmonary/critical care team following him closely. He is status post tracheostomy and PEG tube placement. Labs look same as well as his hemodynamics is still on 50% FiO2 and tachypneic and 30. Renee stable at 13,000, liver enzymes still mildly elevated, creatinine 1.0. Sodium slightly improved down to 147 while he is on D5W at 75 mL/h. He still on dexamethasone, vitamin C D and zinc. Also he is on heparin drip for his bilateral DVT diagnosed on 02/1202/16/2021 patient remains intubated and sedated in the ICU with pulmonary/critical care team helped with mechanical ventilation. No much change today. Her FiO2 requirement increased to 70%. Labs looks stable or slightly improved with WBC down to 11.1, creatinine to 0.9, liver enzymes slightly better and sodium slightly bigger at 146. She remains on the same treatment of steroids, vitamins, heparin drip. Patient was taken off Nimbex today and kept on fentanyl and propofol 02/17/2021 Patient remains in the ICU sedated and intubated. With pulmonary/critical care team helping with the vent management. Patient hospital course today has been complicated by right lung collapse secondary to pneumothorax apparent on his chest x-ray from today. He status post chest tube placement. Labs reviewed, it looks stable, liver enzymes slightly trending up. Today IV Lasix 20 mg added. Senior Medical Writer. Continue with dexamethasone, multiple vitamins, heparin drip. 02/18/2021 Patient still intubated and sedated in the ICU with pulmonary/critical care team following closely. Patient status right-sided chest tube placement for right pneumothorax. Test Brookecalcitonin slightly increased 0.4 up to 0.6. However he finished his antibiotic dose. He still on dexamethasone and multiple vitamins and heparin drip. He is on IV Lasix 40 mg twice daily. He is getting TPN as well 02/19/2021 Patient's remains in critical condition while intubated and sedated in the ICU with pulmonary/critical care team following him closely. FiO2 lower to 50% today. He is running a fever of 102.5. And the WBC is 19,000. D-dimer elevated 4.3 but patient is on heparin drip for bilateral DVT. Inflammatory markers slightly better LDH 1286 but increased CRP 43.5. His tracheostomy wound culture growing gram-negative bacilli while chest x-ray showing diffuse bilateral infiltrates. Cefepime was added today while insulin increased slightly to 26 at bedtime. Discussed case with pulmonary/critical care team condition remains with guarded prognosis 02/20/2021 Patient remains critically ill in the ICU. Pulmonary/critical care team following the patient and help with vent management. He remains with FiO2 of 50%. At least a running fever of 102. Patient is tachypneic at 30. Labs show leukocytosis improvement slightly down to 15 K. Sodium 144 BMP is unremarkable. Chest x-ray showing 25% right pneumothorax and bilateral infiltrates. Patient remains on cefepime, dexamethasone, vitamins and heparin drip. D5W has been held at 20 mL per hour 02/21/2021 Patient's still sedated and intubated, however he's undergoing sedation holidays to assess his mental status with pulmonary/critical care team followed closely. This vent setting is reviewed. His FiO2 of 50%, his breathing is less tachypneic today. MOC slightly better 14 gait. Creatinine up to 1.2 sodium up to 147 and her menstrual D5W and Lasix per Senior Medical Writer. Cystoscopy dexamethasone and vitamins is covered with cefepime with sputum culture growing Proteus and Streptococcus agalactae. He is on heparin drip, Lasix IV and his insulin dose increased today to 33 units at night 02/22/2021 Patient in the ICU for bilateral pneumonia needing intubation and mechanical ventilation. With pulmonary/critical care team following closely. Patient had fever at 102 yesterday, he is febrile and tachypneic and tachycardic. FiO2 to 50%. His heart rate actually went up to 140-160 secondary to A. fib and RVR and patient was started on amiodarone drip And patient because this was started on Lovenox because heparin drip was held to days ago. Currently he is on therapeutic dose of Lovenox 80 mg twice a day. Local still slightly elevated and Levemir increased to 38 units. Chest x-ray showing slightly decreased right pneumothorax and slightly decreased bilateral infiltrates by radiologist. Sputum cultures growing Proteus and Streptococcus agalactiae and patient is on cefepime for suspected bacterial pneumonia superinfection on the top of his Coumadin infection. Also he is on dexamethasone, multiple vitamins, IV Lasix. Objective - Vital Signs Vital signs: Vital Signs Temp 97.9 F 02/22/21 04:00 Pulse 163 H 02/22/21 06:00 Resp 30 H 02/22/21 06:00 BP 123/72 02/22/21 02:15 Pulse Ox 95 02/22/21 06:00 Intake & Output 02/21/21 02/22/21 02/22/21 18:59 06:59 18:59 Intake Total 9479.241 5635.623 Output Total 1445 1585 Balance 479.440 910.623 Weight 153.9 kg 153.1 kg Intake: IV 463 636 Dextrose 5% in Water 1, 430 600 000 ml @ 50 mls/hr IV . Q20H [facility] Rx#:[id number] presssure bag 33 36 Intake, IV Titration 787.440 492.623 Amount Cefepime 2 gm In Sodium 200 Chloride 0.9% 100 ml @ 25 mls/hr IVPB Q8HR [facility] Rx# :[id number] Dextrose 5% in Water 1, 20 000 ml @ 50 mls/hr IV . Q20H [facility] Rx#:[id number] Norepinephrine 4 mg In 508.000 492.623 Sodium Chloride 0.9% 250 ml @ 0.05 MCG/KG/MIN 31. 453 mls/hr IV .Q8H5M [facility] Rx#:[id number] fentaNYL (PF). 1,000 mcg 59.44 In Sodium Chloride 0.9% 80 ml @ 0.5 MCG/KG/HR 8. 255 mls/hr IV .Q12H7M [facility], [facility] Rx#:[id number] Tube Feeding 674 767 Other 600 Output: Urine 1445 1585 Other: Voiding Method Indwelling Catheter Indwelling Catheter # Bowel Movements 1 ABP, PAP, CO, CI - Last Documented Arterial Blood Pressure 120/70 - Exam -GENERAL: The patient is intubated and sedated HEENT: Pupils are round and equally reacting to light. EOMI. No scleral icterus. No conjunctival pallor. Normocephalic, atraumatic. No pharyngeal erythema. No thyromegaly. CARDIOVASCULAR: S1 and S2 present. No murmurs, rubs, or gallops. -PULMONARY: Chest is clear to auscultation, no wheezing . bilateral cr epitation. Right-sided chest tube Abdomen: soft, nontender, nondistended, normoactive bowel sounds. No palpable organomegaly. MUSCULOSKELETAL: No joint swelling or deformity. EXTREMITIES: No cyanosis, clubbing, or pedal edema. NEUROLOGICAL: Gross neurological examination did not reveal any focal deficits. SKIN: No rashes. no petechiae. - Labs CBC & Chem 7: 02/22/21 03:20 02/22/21 03:20 Labs: Abnormal Lab Results - Last 24 Hours (Table) 02/21/21 02/21/21 02/21/21 Range/Units 12:00 17:56 23:56 WBC (3.8-10.6) k/uL MCV (80.0-100.0) fL MCHC (31.0-37.0) g/dL Neutrophils # (Manual) (1.3-7.7) k/uL Lymphocytes # (Manual) (1.0-4.8) k/uL ABG pH (7.35-7.45) ABG pCO2 (35-45) mmHg ABG HCO3 (21-25) mmol/L ABG Total CO2 (19-24) mmol/L Sodium (137-145) mmol/L Chloride (98-107) mmol/L BUN (9-20) mg/dL Glucose (74-99) mg/dL POC Glucose (mg/dL) 266 H 250 H 256 H (75-99) mg/dL Total Bilirubin (0.2-1.3) mg/dL AST (17-59) U/L ALT (4-49) U/L Alkaline Phosphatase (38-126) U/L Total Protein (6.3-8.2) g/dL Albumin (3.5-5.0) g/dL 02/22/21 02/22/21 02/22/21 Range/Units 03:20 03:20 05:20 WBC 15.5 H (3.8-10.6) k/uL MCV 105.1 H (80.0-100.0) fL MCHC 30.9 L (31.0-37.0) g/dL Neutrophils # (Manual) 14.50 H (1.3-7.7) k/uL Lymphocytes # (Manual) 0.31 L (1.0-4.8) k/uL ABG pH (7.35-7.45) ABG pCO2 (35-45) mmHg ABG HCO3 (21-25) mmol/L ABG Total CO2 (19-24) mmol/L Sodium 151 H (137-145) mmol/L Chloride 114 H (98-107) mmol/L BUN 100 H (9-20) mg/dL Glucose 272 H (74-99) mg/dL POC Glucose (mg/dL) 229 H (75-99) mg/dL Total Bilirubin 1.8 H (0.2-1.3) mg/dL AST 80 H (17-59) U/L ALT 123 H (4-49) U/L Alkaline Phosphatase 127 H (38-126) U/L Total Protein 6.0 L (6.3-8.2) g/dL Albumin 2.5 L (3.5-5.0) g/dL 02/22/21 Range/Units 05:49 WBC (3.8-10.6) k/uL MCV (80.0-100.0) fL MCHC (31.0-37.0) g/dL Neutrophils # (Manual) (1.3-7.7) k/uL Lymphocytes # (Manual) (1.0-4.8) k/uL ABG pH 7.34 L (7.35-7.45) ABG pCO2 54 H (35-45) mmHg ABG HCO3 29 H (21-25) mmol/L ABG Total CO2 31 H (19-24) mmol/L Sodium (137-145) mmol/L Chloride (98-107) mmol/L BUN (9-20) mg/dL Glucose (74-99) mg/dL POC Glucose (mg/dL) (75-99) mg/dL Total Bilirubin (0.2-1.3) mg/dL AST (17-59) U/L ALT (4-49) U/L Alkaline Phosphatase (38-126) U/L Total Protein (6.3-8.2) g/dL Albumin (3.5-5.0) g/dL Microbiology - Last 24 Hours (Table) 02/18/21 13:44 Gram Stain - Preliminary Trachea Wound Culture - Preliminary Proteus penneri Strep agalactiae - (group b) Assessment and Plan Assessment: Bilateral Covid pneumonia, with superimposed bacterial infection Acute hypoxic respiratory failure, requiring mechanical ventilation, status post tracheostomy and PEG tube placement on 02/14 Increased inflammatory markers Atrial fibrillation's with RVR. Right pneumothorax status post chest tube placement on 02/17 Chronic kidney disease, stage III On IV Lasix history of DVT currently on anticoagulation with Coumadin. Morbid obesity with BMI 46.7 Chronic low back pain COPD/asthma Osteoarthritis Plan: This is a pleasant 60 years old male who presents with Bilateral Covid pneumonia and hypoxia Continue with vitamin C, vitamin D, and zinc. Continue with dexamethasone Pulmonary team consult Continue with mechanical ventilatio changed to Lovenox n for critical care team. Status post tracheostomy and PEG tube placement on 02/14 Heparin drip for DVT Right-sided chest tube add cefepime, follow-up once culture results from tracheostomy Continue with amiodarone drip Labs and medication were reviewed.. Continue same treatment. Continue with symptomatic treatment. Resume home medication. Monitor lytes and vitals. DVT and GI prophylaxis. Further recommendations as per clinical course of the patient DVT prophylaxis: warfarin/Lovenox GI Prophylaxis: Ppi Prognosis is guarded
--- NOTE | 2021-02-22 10:11 | P.PN ---
Subjective Progress Note Date: 02/22/21 Principal diagnosis: Acute hypoxic respiratory failure secondary to COVID-19 pneumonia requiring intubation and mechanical ventilation on 01/06/2021 61-year-old male patient, presented to the emergency department because of worsening shortness of breath and fatigue and weakness. He has several family members in his household tested positive for COVID 19. The patient himself is not vaccinated. His symptoms started approximately 5 or 6 days ago. He progressively became more short of breath and the patient presented to the emergency department very short of breath, hypoxic, initial pulse ox was 67% on room air oxygen. He was afebrile and he was tachycardic. His EKG showed normal sinus rhythm, sinus tachycardia, white cell count was at 7.6 with a hemoglobin of 15.9, he sodium level was 126, he had an acute kidney injury with a BUN of 65 with a creatinine of 1.8, the patient immediately checked positive for COVID 19. Lactic acid level was at 1.9. The patient was initially placed on 100% nonrebreather facemask. It improved his oxygen saturation. We are the process of switching this patient to a combination of Airvo and 100% on a beta facemasks pH chest x-ray shows some elevation of the right hemidiaphragm. The patient is morbidly obese with a BMI of 46.7. The chest x-ray also showed diffuse bilateral pulmonary infiltrates consistent with COVID 19 related pneumonia. The patient is started on steroids. inflammatory markers are still pending for now. Comorbid conditions include COPD/asthma, previous history of DVT, previous history of pancreatitis, hypertension. On 02/03/2021 patient seen in follow-up in the emergency department, he remains on BiPAP support with pressures of 16 and 6 and FiO2 of 100%, remains dyspneic, tachypneic, easily desaturates when the mask is removed to receive sips of water and oral medications. He is awake and alert, oriented 3. Answers questions appropriately. Afebrile, no completes of chest discomfort, occasional cough. Symptoms have been reviewed, CBC was unremarkable, lymphocyte count is stable at 0.44. Patient is on Coumadin, his INR today is 2.0, his d-dimer yesterday was 1.16, today sodium is improving and is up to 120, potassium is 4.3, chloride is 91, BUN is 60, creatinine is 1.8., His inflammatory markers are improving, his LDH is down to 893, CRP is still pending, his pro-calcitonin level is elevated at 0.69 suggesting possibility of underlying gastrointestinal infection, urinalysis is suggestive of acute urinary tract infection, urine culture has been sent and pending at this time. Rocephin has been added for empiric antibiotic coverage, patient is on Decadron 6 mg daily, he is on Coumadin as mentioned above, and he is receiving IV fluids with 0.9 normal saline at a rate of 75 per hour, he is on vitamin C, D and zinc. His chest x-ray from yesterday shows diffuse residual coarsening of moderate patchy airspace opacities bilaterally. On 02/05/2021 patient seen in follow-up on selective care unit, patient is currently on BiPAP with FiO2 100%, he is very restless, he frequently removes the tubing, becomes more short of breath, he desaturates, he has required lorazepam 1 mg every 4 hours for anxiety. He is currently on Decadron 6 more gram daily, he is on empiric antibiotics in the form of ceftriaxone, he is on Coumadin, and his INR today is 4.8, the rest of his lab work is still pending for today. His urinalysis showed possibility of urinary tract infection, urine culture not show any growth. No fever or chills. His last chest x-ray was done 2 days ago showing diffuse residual coarsening and moderate patchy airspace opacities bilaterally. There is chronic elevation of the right hemidiaphragm. His last set of inflammatory markers was on 02/03/2021, but noted improvements in his inflammatory markers. Reevaluated today on 02/06/2021, patient was transferred to the ICU yesterday, mostly because his pulmonary status continued to deteriorate, patient remained hypoxic, continued to remove his BiPAP mask, transferred into the ICU, placed on Precedex initially, and kept him on BiPAP, however patient continued to saturate, and I was notified about the nurses that his clinical status is getting worse, recommended immediate intubation and mechanical ventilation. Patient is now intubated, mechanically ventilated. He is on assist control rate of 30 tidal volume 450 FiO2 60% and PEEP of 14. ABG showed a pO2 of 86 pCO2 of 52 pH of 7.36, patient remains on multiple drips including propofol at 40 mcg/kg/m, fentanyl 1 mcg/kg/h Nimbex 1.5 mcg/kg/m. Patient is also requiring norepinephrine at 0.1 mcg/kg/m. LDH today is extremely high over 3000. WBC count is elevated at 20.7 hemoglobin 15.7 his electrolytes are normal however his renal profile showed a BUN of 77 creatinine 1.47 chest x-ray showed patchy bilateral infiltrates, slight improvement compared to chest x-ray prior to intubation. His INR today is 5.8, hence I plan to reverse his INR are at least give him fresh frozen plasma and vitamin K in order to safely place a central line and arterial line in this patient. Reevaluated today on 02/07/2021, patient remains in the ICU, intubated and mechanically ventilated. He is on assist control rate of 30 tidal volume 450 FiO2 50% and PEEP of 14. ABG showed a pO2 of 75 pCO2 48 pH of 7.40. Chest x- ray continues to show bilateral infiltrates with a right lower lobe consolidation. No changes were made in his ventilator settings today. Agent remains on multiple drips including propofol at 40 mcg/kg/m, fentanyl at 20 mcg/kg/h Nimbex at 2 mcg/minute, norepinephrine at 0.03 mcg/kg/m, IV fluid saline at 75 mL/h he is also on enteral feedings. LDH is improving down to 1966 CRP is 9 about the same. Electrolytes are about the same but BUN is 74 creatinine is 1.35. Again chest x-ray showed no major change since admission. Education list was reviewed, patient is on allopurinol, ascorbic acid, Rocephin, vitamin D, Decadron 6 mg IV push daily, Neurontin 1600 mg twice a day, lisinopril, insulin, lorazepam, patient is on Protonix 40 mg IV push daily, Coumadin 2 mg daily. And the patient is on zinc Reevaluated today on 02/08/2021, remains in the ICU, intubated and mechanically ventilated. Patient is on assist control rate of 30 tidal volume 450 FiO2 50% PEEP is 14. ABG showed a pO2 of 73 pCO2 46 pH of 7.40 hence no changes were made in his present ventilator settings. Chest x-ray continues to show not much of a significant change, bilateral infiltrates persist. Patient is on fentanyl at 1 mcg/kg/h, propofol at 40 mcg/kg/minute, Nimbex at 2 mcg/kg/m, norepinephrine at 0.02 mcg/kg/m. Patient is on vital AF rate 45 per hour. WBC count today 16.6 hemoglobin 14 INR 1.5 patient is on Coumadin for history of DVT. Sodium 145 potassium 4.4 chloride 111 bicarb 28 BUN is 74 creatinine is 1.22. Remains on vitamin C, Rocephin, vitamin D, Decadron 6 mg IV push daily, Neurontin, lisinopril, Protonix, Coumadin 2 mg daily and is also on zinc. Reevaluated today on 02/09/2021, patient remains in the ICU intubated and mechanically ventilated. He is on assist control rate of 30 tidal volume 450 FiO2 50% PEEP is 14. His ABG showed a pO2 of 96 pCO2 48 pH of 7.37, hence I recommended decreasing the PEEP down to 12. Patient is on multiple drips including fentanyl at 1 mcg/kg/h propofol at 40 mcg/kg/m Nimbex at 1.5 mcg/kg/m norepinephrine at 0.01 mcg/kg/m is also on enteral feeding in the form of vital AF 3 5 mL per hour. His labs showed relatively normal electrolytes except for slightly elevated sodium hence his IV fluid was changed to D545 at 50 mL per hour. Patient had relatively normal electrolytes otherwise except for the sodium being 146. His BUN is 76 creatinine is 1.24 slightly higher hence we'll increase his IV fluid today. Chest x-ray continues to show bilateral infiltrates, chest x-ray is not much different from his baseline. There may be a slight improvement in his right lower lobe consolidation. Endotracheal tube had to be advanced about to see and distally. Medications list was reviewed, patient is on allopurinol, albuterol, vitamin C, Rocephin, Peridex, vitamin D, Flexeril, Decadron 6 mg IV push daily, gabapentin, insulin as per scale, lisinopril with hydrochlorothiazide, Reglan when necessary, Protonix 40 mg IV push daily, and zinc. On today's evaluation of 02/18/2021, seeing the patient for a follow-up. Note that the patient is a subsequent with associated pneumonia Combigan by right- sided pneumothorax and currently the patient is a right-sided chest tube in place. This morning, the patient remains sedated without any paralysis. He is currently on propofol running at 50 mcg/kg per minute and fentanyl is running at 1 mcg/kg/h. He seems to be quite comfortable and I would suggest further sedation weaning on this patient. He remains on a mechanical ventilator. He is on assist control mode at a tidal volume of 450, FiO2 of 65%, PEEP was at 12 and the rate of 30. Blood gases from this morning showed a pH of 7.35 with a pCO2 57 and pO2 131. Chest x-ray shows evidence of emphysema on the right. No evidence of any pneumothorax. Right-sided chest tube is in a good location. No evidence of any air leak and the Pleur-evac and output from the chest tube has been minimal at this point in time. The chest x-ray however shows increased opacity in the right lung base and some elevation right hemidiaphragm probably some right basilar atelectasis along with diffuse bilateral pulmonary infiltrates as seen earlier. Tracheostomy tube is in a good location. Of sig nificance also was some bleeding around the tracheostomy tube stoma and IV heparin was discontinued. I will suggest restarting IV heparin knowing that the patient has bilateral lower extremity DVT. Sputum samples are to be the collected. In terms of his COVID 19 related pneumonia, his inflammatory markers were elevated still. Last inflammatory markers were obtained on 02/17/2021 and dose needs to be repeated. Most recent pro-calcitonin level from yesterday was at 0.6. Meanwhile, the patient is still pressor dependent and norepinephrine infusion is running at 0.1 Christiano respiratory per minute. Urine output is adequate. Overall fluid balance has been in the order of -3 L 4 02/18/2021 and -1.3 L or yesterday. The patient is currently on diuretics with Lasix 40 mg IV every 12 hours. He continues to have extensive edema in all 4 extremity is along with some areas of skin blistering in the lower extremities. On a separate note, the patient is currently off TPN. We are able to insert a NG tube in this patient. Currently is receiving vital high protein at the rate of 10 mL an hour and will make adjustments on the rate 60 Reevaluated today on 02/20/21, patient remains in the ICU, intubated and mechanically ventilated. He is status post tracheostomy. He is on assist contr ol rate of 30 tidal volume 450 FiO2 50% and PEEP of 12. Patient remains on propofol at 10 fentanyl at 1 mcg/kg/m. Mental status is poor, today I recommended that we discontinue all sedatives and determine whether the patient is going to have any neurological improvement in his mental status. He is on feeding using vital AF at 50 mL per hour. He could not get a PEG tube placed, continues to have enteral feeding via orogastric tube. Remains on cefepime empirically. Patient is also on norepinephrine at 0.06. ABG today showed a pO2 of 80 pCO2 48 pH of 7.40. Early discitis 15.0 hemoglobin 12.8. Basic metabolic profile is normal however BUN is up to 90 creatinine 1.14. Medications were r eviewed, patient is on albuterol, allopurinol, ascorbic acid, cefepime, chlorhexidine, Decadron 6 mg IV push daily, Lasix 40 mg IV push every 12 hours, gabapentin 1600 mg twice a day, heparin , and he is also on zinc. Patient is receiving midodrine 10 mg 3 times a day. And on insulin as per protocol Accu- Cheks asked x-ray continues to show right-sided pneumothorax about 25% although the chest tube is in place, and there is also some consolidation noted at the bases bilaterally. Reevaluated today on 02/21/2021, patient remains in the ICU, intubated and mechanically ventilated. Remains on assist control rate of 30 tidal volume 450 FiO2 50% and PEEP of 12. ABG today showed a pO2 of 84 pCO2 51 pH of 7.37. Chest x-ray continues to show bilateral infiltrates. Chest x-ray continues to show a stable right-sided pneumothorax. With chest tube in place. Patient remains on norepinephrine at 0.08 mcg/kg/m, he is also on fentanyl 1 mcg/kg/h. Remains on vital AF at 50 mL per hour/goal. His IV fluid today was increased in the form of D5 W-2 50 mL per hour. Sodium was noted to be 147 today. Renal profile showed a pO2 of 95 creatinine 1.28. WBC count is 14.5 hemoglobin is 13.6. Mental status basically remains about the same. I am still recommending every day to go on sedation holiday, and continue to assess mental status, we will discontinue fentanyl this morning and hopefully get some adequate mental assessment. Remains on the COVID-19 cocktail. Remains on cefepime, Decadron 6 mg IV push daily, Lasix is 40 mg IV push every 12 hours, gabapentin, heparin, patient is also on Protonix and zinc. Reevaluated today on 02/22/21, he remains in the ICU, intubated and mechanically ventilated. Patient is off all sedation, he is still receiving enteral feeding, he is on assist control rate of 30 tidal volume 450 FiO2 50% PEEP is 12. ABG showed a pO2 of 84 pCO2 54 pH of 7.34 WBC count is 15.5 hemoglobin is 14.0, sodium is 151 potassium 4.4 chloride 114 BUN is 100 creatinine 1.18. Patient is requiring norepinephrine to maintain adequate blood pressure, his also on amiodarone at 0.5 mg/m for his atrial fibrillation which she developed yesterday, and he was placed on amiodarone as per protocol. Cardiology is evaluating the patient today for his atrial fibrillation with RVR, presently his rate remains poorly controlled. Considering his renal profile, went ahead and discontinued his Lasix. Patient is receiving free water to correct his hypernatremia. Asked x-ray today continues to show evidence of right-sided pneumothorax, stable right thoracostomy tube in proper position, small right pleural effusion is noted. Otherwise no major change Objective - Vital Signs Vital signs: Vital Signs Temp 97.9 F 02/22/21 04:00 Pulse 163 H 02/22/21 06:00 Resp 30 H 02/22/21 06:00 BP 123/72 02/22/21 02:15 Pulse Ox 95 02/22/21 06:00 Intake & Output 02/21/21 02/22/21 02/22/21 18:59 06:59 18:59 Intake Total 5241.783 1700.623 Output Total 1445 1585 Balance 479.440 910.623 Weight 153.9 kg 153.1 kg Intake: IV 463 636 Dextrose 5% in Water 1, 430 600 000 ml @ 50 mls/hr IV . Q20H [facility] Rx#:[id number] presssure bag 33 36 Intake, IV Titration 787.440 492.623 Amount Cefepime 2 gm In Sodium 200 Chloride 0.9% 100 ml @ 25 mls/hr IVPB Q8HR [facility] Rx# :[id number] Dextrose 5% in Water 1, 20 000 ml @ 50 mls/hr IV . Q20H [facility] Rx#:[id number] Norepinephrine 4 mg In 508.000 492.623 Sodium Chloride 0.9% 250 ml @ 0.05 MCG/KG/MIN 31. 453 mls/hr IV .Q8H5M [facility] Rx#:[id number] fentaNYL (PF). 1,000 mcg 59.44 In Sodium Chloride 0.9% 80 ml @ 0.5 MCG/KG/HR 8. 255 mls/hr IV .Q12H7M [facility] Rx#:[id number] Tube Feeding 674 767 Other 600 Output: Urine 1445 1585 Other: Voiding Method Indwelling Catheter Indwelling Catheter # Bowel Movements 1 ABP, PAP, CO, CI - Last Documented Arterial Blood Pressure 120/70 - Exam GENERAL EXAM: Revealed a 60-year-old white male morbidly obese intubated and mechanically ventilated., Patient has tracheostomy , seems intact. HEAD: Normocephalic/atraumatic. Neck estimated intact. HEENT: PERRLA, EOMI, nonicteric, no neck masses, moist mucous membranes, CHEST: No chest wall deformity. Symmetrical expansion. LUNGS: Crackles bilaterally mostly at the bases. CVS: Regular rate and rhythm, normal S1 and S2, no gallops, no murmurs, no rubs ABDOMEN: Obese, Soft, nontender. No hepatosplenomegaly, normal bowel sounds, no guarding or rigidity. EXTREMITIES: No clubbing, no cyanosis, 2+ pulses and upper and lower extremities . With venous stasis changes noted in lower extremities. 2+ bipedal edema. SKIN: No rashes, except for chronic venous stasis changes and brawny discoloration of the lower extremities. Her evidence of blistering on the dorsal aspect of the left foot, toes are turning purple, patient remains on nor epinephrine. CENTRAL NERVOUS SYSTEM: Unresponsive to any stimuli, in spite of being off all sedatives and narcotics PSYCHIATRIC: Cannot assess - Labs CBC & Chem 7: 02/22/21 03:20 02/22/21 03:20 Labs: Abnormal Lab Results - Last 24 Hours (Table) 02/21/21 02/21/21 02/21/21 Range/Units 12:00 17:56 23:56 WBC (3.8-10.6) k/uL MCV (80.0-100.0) fL MCHC (31.0-37.0) g/dL Neutrophils # (Manual) (1.3-7.7) k/uL Lymphocytes # (Manual) (1.0-4.8) k/uL ABG pH (7.35-7.45) ABG pCO2 (35-45) mmHg ABG HCO3 (21-25) mmol/L ABG Total CO2 (19-24) mmol/L Sodium (137-145) mmol/L Chloride (98-107) mmol/L BUN (9-20) mg/dL Glucose (74-99) mg/dL POC Glucose (mg/dL) 266 H 250 H 256 H (75-99) mg/dL Total Bilirubin (0.2-1.3) mg/dL AST (17-59) U/L ALT (4-49) U/L Alkaline Phosphatase (38-126) U/L Total Protein (6.3-8.2) g/dL Albumin (3.5-5.0) g/dL 02/22/21 02/22/21 02/22/21 Range/Units 03:20 03:20 05:20 WBC 15.5 H (3.8-10.6) k/uL MCV 105.1 H (80.0-100.0) fL MCHC 30.9 L (31.0-37.0) g/dL Neutrophils # (Manual) 14.50 H (1.3-7.7) k/uL Lymphocytes # (Manual) 0.31 L (1.0-4.8) k/uL ABG pH (7.35-7.45) ABG pCO2 (35-45) mmHg ABG HCO3 (21-25) mmol/L ABG Total CO2 (19-24) mmol/L Sodium 151 H (137-145) mmol/L Chloride 114 H (98-107) mmol/L BUN 100 H (9-20) mg/dL Glucose 272 H (74-99) mg/dL POC Glucose (mg/dL) 229 H (75-99) mg/dL Total Bilirubin 1.8 H (0.2-1.3) mg/dL AST 80 H (17-59) U/L ALT 123 H (4-49) U/L Alkaline Phosphatase 127 H (38-126) U/L Total Protein 6.0 L (6.3-8.2) g/dL Albumin 2.5 L (3.5-5.0) g/dL 02/22/21 Range/Units 05:49 WBC (3.8-10.6) k/uL MCV (80.0-100.0) fL MCHC (31.0-37.0) g/dL Neutrophils # (Manual) (1.3-7.7) k/uL Lymphocytes # (Manual) (1.0-4.8) k/uL ABG pH 7.34 L (7.35-7.45) ABG pCO2 54 H (35-45) mmHg ABG HCO3 29 H (21-25) mmol/L ABG Total CO2 31 H (19-24) mmol/L Sodium (137-145) mmol/L Chloride (98-107) mmol/L BUN (9-20) mg/dL Glucose (74-99) mg/dL POC Glucose (mg/dL) (75-99) mg/dL Total Bilirubin (0.2-1.3) mg/dL AST (17-59) U/L ALT (4-49) U/L Alkaline Phosphatase (38-126) U/L Total Protein (6.3-8.2) g/dL Albumin (3.5-5.0) g/dL Microbiology - Last 24 Hours (Table) 02/18/21 13:44 Gram Stain - Preliminary Trachea Wound Culture - Preliminary Proteus penneri Strep agalactiae - (group b) Assessment and Plan Assessment: #1. Acute COVID-19, patient presented with worsening shortness of breath of 5 days duration, and she was not a candidate for Remdesivir related to severity of his hypoxia. Baricitinib was started on 02/02/2021 which will be discontinued today on 02/03/2021 related to possibility of underlying urinary tract infection. Patient was initially DO NOT RESUSCITATE CODE STATUS, however the changes CODE STATUS after she was updated on his condition when he was on the medical floor. And she reversed his CODE STATUS to full code, hence patient was transferred to the ICU on 01/06/2021, intubated and mechanically ventilated. Patient was intubated on 02/05 tracheostomy on 02/14 PEG tube could not be inserted. Patient developed a right-sided pneumothorax requiring chest tube placement continues to have a small right sided pneumothorax. And chest tube is in place. Still requiring norepinephrine intermittently. Patient continues to have no neurological responses in spite of being off sedation for the last 24 hours #2. Acute hypoxic respiratory failure , requiring intubation and mechanical ventilation on 01/06, patient failed BiPAP, changes CODE STATUS from DO NOT RESUSCITATE to full code. #3. Acute kidney injury related to intravascular volume depletion and dehydration being followed by nephrology. #4. Acute electrolytes imbalance, resolved. #5. Previous history of DVT on Coumadin, was on heparin which was discontinued placed him on Lovenox 80 mg subcu twice a day. 6. Obesity with BMI of 46.7 kg/m #7. Chronic back pain #8. History of COPD/asthma #9. Previous history of pancreatitis #10. Hypertension #11. Acute right-sided pneumothorax, as a complication from COVID-19 pneumonia, expected status post right sided chest tube placement by Dr. Rosa. #12 new onset atrial fibrillation with RVR on 02/22, patient placed on amiodarone drip, and I'm placing him back on Lovenox at 80 mg subcu twice a day. Recommendations Continue ventilatory support. Continue same ventilator settings at present he is on assist control rate of 30 tidal volume 450 FiO2 50% PEEP of 12. No changes in vent settings made today.. Continue Lovenox and monitor for any signs of bleeding continue amiodarone and cardiology see on consultation. Continue nutritional support/enteral feeding Continue enteral feeding. Continue COVID-19 cocktail. Continue Decadron. Keep patient off sedatives all day today if possible. Hopefully we will be able to assess mental status. Continue to monitor x-rays on a daily basis as well as inflammatory markers. Continue GI and DVT prophylaxis. Prognosis is extremely poor and guarded. Continue cefepime empirically Continue gabapentin CODE STATUS is now DO NOT RESUSCITATE as per his 's wishes. Critical care time is over 30 minutes Time with Patient: Greater than 30
--- NOTE | 2021-02-22 10:57 | P.CRDCN ---
History of Present Illness Consult date: 02/22/21 History of present illness: This is a 60-year-old gentleman who was admitted with COVID pneumonia and has been in the hospital for many days. Initial EKG showed sinus rhythm and sinus tachycardia. It appears that patient was admitted on january to this hospital. Patient is currently intubated and mechanically ventilated. Patient is off sedation and has been on enteral feeding. White count is 15,000. Sodium is 151, potassium 4.4. Creatinine is 1.18. Patient is on norepinephrine drip for blood pressure support. Currently is on amiodarone drip. His heart rate is still not well controlled. His course is complicated by right-sided pneumothorax requiring chest tube. Patient also has kidney failure. Patient has had problem with bleeding and was taken off anticoagulation. Currently she walks 80 mg subcu twice daily. I will continue amiodarone drip and start him on by mouth amiodarone 400 mg by mouth twice a day. Overall his prognosis is poor. We'll may get an echocardiogram to assess his LV function. 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, chronic low back pain/spinal stenosis/scoliosis, p ancreatitis, gout History of Any Multi-Drug Resistant Organisms: None Reported Past Surgical History: Appendectomy, Cholecystectomy, Orthopedic Surgery Additional Past Surgical History / Comment(s): meniscus repair rt knee, lt wrist surgery fracture/pins Past Anesthesia/Blood Transfusion Reactions: No Reported Reaction Smoking Status: Never smoker - Past Family History Mother Family Medical History: Cancer, Deep Vein Thrombosis (DVT) Additional Family Medical History / Comment(s): Mother of lung cancer Father Family Medical History: No Reported History Medications and Allergies Home Medications Medication Instructions Recorded Confirmed Type Meloxicam [Mobic] 7.5 mg PO DAILY 09/11/16 02/02/21 History oxyCODONE-APAP 10-325MG [Percocet 1 tab PO Q6H PRN 09/11/16 02/02/21 History 10-325 mg] Albuterol Inhaler [Ventolin Hfa 2 puff INHALATION RT-Q4H PRN 02/02/21 02/02/21 History Inhaler] Allopurinol [Zyloprim] 300 mg PO BID 02/02/21 02/02/21 History Ammonium Lactate Cream [Lac-Hydrin 1 applic TOPICAL DAILY PRN 02/02/21 02/02/21 History 12% Cream] Cephalexin [Keflex] 500 mg PO Q12HR 02/02/21 02/02/21 History Cyclobenzaprine [Flexeril] 10 mg PO TID PRN 02/02/21 02/02/21 History Diclofenac Sodium Gel [Voltaren 1 gm TOPICAL DAILY PRN 02/02/21 02/02/21 History Gel] Famotidine [Pepcid] 40 mg PO HS 02/02/21 02/02/21 History Gabapentin 1,600 mg PO BID 02/02/21 02/02/21 History Lisinopril-Hctz 10-12.5 mg 1 tab PO BID 02/02/21 02/02/21 History [Zestoretic 10-12.5] Warfarin [Coumadin] 5 mg PO DIRECTED 02/02/21 02/02/21 History Warfarin [Coumadin] 7.5 mg PO DIRECTED 02/02/21 02/02/21 History predniSONE See Taper PO DAILY 02/02/21 02/02/21 History Allergies Allergy/AdvReac Type Severity Reaction Status Date / Time doxycycline Allergy Unknown Verified 02/02/21 16:48 Physical Exam Vitals: Vital Signs Temp Pulse Pulse Resp BP Pulse Ox 02/22/21 06:00 163 H 30 H 95 02/22/21 05:45 146 H 30 H 95 02/22/21 05:30 135 H 30 H 95 02/22/21 05:15 140 H 30 H 95 02/22/21 05:00 147 H 30 H 95 02/22/21 04:45 137 H 30 H 95 02/22/21 04:30 147 H 30 H 94 L 02/22/21 04:15 138 H 30 H 95 02/22/21 04:00 97.9 F 149 H 30 H 95 02/22/21 03:45 152 H 30 H 95 02/22/21 03:30 156 H 30 H 95 02/22/21 03:15 144 H 30 H 95 02/22/21 03:00 147 H 30 H 95 02/22/21 02:45 138 H 30 H 95 02/22/21 02:30 133 H 30 H 95 02/22/21 02:15 131 H 15 123/72 95 02/22/21 02:00 123 H 19 123/72 96 02/22/21 01:45 129 H 30 H 96 02/22/21 01:30 131 H 30 H 96 02/22/21 01:15 126 H 30 H 96 02/22/21 01:00 133 H 30 H 96 02/22/21 00:45 129 H 30 H 96 02/22/21 00:30 140 H 30 H 96 02/22/21 00:15 154 H 30 H 97 02/22/21 00:00 97.8 F 130 H 30 H 96 02/21/21 23:45 135 H 30 H 97 02/21/21 23:30 141 H 30 H 96 02/21/21 23:15 129 H 30 H 97 02/21/21 23:00 129 H 30 H 96 02/21/21 22:47 135 H 02/21/21 22:45 138 H 30 H 97 02/21/21 22:32 154 H 02/21/21 22:30 154 H 31 H 123/72 96 02/21/21 22:15 149 H 21 123/72 97 02/21/21 22:00 146 H 30 H 97 02/21/21 21:30 149 H 30 H 97 02/21/21 21:00 112 H 30 H 96 02/21/21 20:30 112 H 30 H 95 02/21/21 20:00 97.5 F L 111 H 30 H 96 02/21/21 19:30 102 H 30 H 95 02/21/21 19:00 103 H 20 96 02/21/21 18:30 113 H 24 94 L 02/21/21 18:00 121 H 24 94 L 02/21/21 17:30 108 H 23 96 02/21/21 17:00 101 H 22 95 02/21/21 16:30 117 H 26 H 94 L 02/21/21 16:00 100.3 F H 107 H 35 H 95 02/21/21 15:30 113 H 31 H 95 02/21/21 15:00 109 H 30 H 95 02/21/21 14:30 116 H 25 H 94 L 02/21/21 14:00 98 31 H 95 02/21/21 13:30 104 H 25 H 95 02/21/21 13:00 111 H 27 H 95 02/21/21 12:30 115 H 32 H 94 L 02/21/21 12:00 102.0 F H 120 H 32 H 94 L 02/21/21 11:30 116 H 29 H 94 L 02/21/21 11:00 121 H 30 H 123/72 94 L Intake and Output 02/21/21 02/22/21 02/22/21 22:59 06:59 14:59 Intake Total 5148.834 7379.138 254 Output Total 1050 885 Balance 692.576 7048.138 254 Intake: IV 424 424 Dextrose 5% in Water 1, 400 400 000 ml @ 50 mls/hr IV . Q20H [facility] Rx#:[id number] presssure bag 24 24 Intake, IV Titration 212.251 469.138 254 Amount Cefepime 2 gm In Sodium 100 Chloride 0.9% 100 ml @ 25 mls/hr IVPB Q8HR [facility] Rx# :[id number] Norepinephrine 4 mg In 112.251 469.138 254 Sodium Chloride 0.9% 250 ml @ 0.05 MCG/KG/MIN 31. 453 mls/hr IV .Q8H5M [facility] Rx#:[id number] Tube Feeding 531 472 Other 600 Output: Urine 1050 885 Other: Voiding Method Indwelling Catheter Indwelling Catheter # Bowel Movements 1 Weight 153.1 kg ABP, PAP, CO, CI - Last 8 Hours Arterial Blood Pressure 120/70 Arterial Blood Pressure 101/64 Arterial Blood Pressure 107/68 Arterial Blood Pressure 120/70 Arterial Blood Pressure 101/64 Arterial Blood Pressure 138/80 Arterial Blood Pressure 114/70 Arterial Blood Pressure 112/69 Arterial Blood Pressure 116/71 Arterial Blood Pressure 127/75 Arterial Blood Pressure 127/75 Arterial Blood Pressure 121/72 Arterial Blood Pressure 119/73 This patient is not personally examined. Information is gathered from the nurses and also reviewing the chart Results 02/22/21 03:20 02/22/21 03:20 Cardiac Enzymes 02/22/21 Range/Units 03:20 AST 80 H (17-59) U/L CBC 02/22/21 Range/Units 03:20 WBC 15.5 H (3.8-10.6) k/uL RBC 4.32 (4.30-5.90) m/uL Hgb 14.0 (13.0-17.5) gm/dL Hct 45.4 (39.0-53.0) % Plt Count 160 (150-450) k/uL Comprehensive Metabolic Panel 02/22/21 Range/Units 03:20 Sodium 151 H (137-145) mmol/L Potassium 4.4 (3.5-5.1) mmol/L Chloride 114 H (98-107) mmol/L Carbon Dioxide 27 (22-30) mmol/L BUN 100 H (9-20) mg/dL Creatinine 1.18 (0.66-1.25) mg/dL Glucose 272 H (74-99) mg/dL Calcium 8.6 (8.4-10.2) mg/dL AST 80 H (17-59) U/L ALT 123 H (4-49) U/L Alkaline Phosphatase 127 H (38-126) U/L Total Protein 6.0 L (6.3-8.2) g/dL Albumin 2.5 L (3.5-5.0) g/dL Current Medications Generic Name Dose Route Start Last Admin Trade Name Freq PRN Reason Stop Dose Admin Acetaminophen 650 mg 02/02/21 16:30 02/21/21 10:22 Acetaminophen Tab 325 Mg Tab PO 650 mg Q6HR PRN Administration Mild Pain or Fever > 100.5 Albuterol Sulfate 2 puff 02/02/21 17:20 02/22/21 09:27 Albuterol Hfa Inhaler INHALATION 2 puff RT-Q4H PRN Administration Shortness Of Breath Allopurinol 300 mg 02/02/21 21:00 02/22/21 09:47 Allopurinol 300 Mg Tab PO 300 mg BID [facility] Administration Ascorbic Acid 1,000 mg 02/03/21 09:00 02/22/21 09:47 Ascorbic Acid 500 Mg Tab PO 1,000 mg DAILY [facility] Administration Cholecalciferol 25 mcg 02/03/21 09:00 02/22/21 09:47 Cholecalciferol 25 Mcg (1000 Iu) Tablet PO 25 mcg DAILY [facility] Administration Dexamethasone Sodium Phosphate 6 mg 02/03/21 09:00 02/22/21 09:57 Dexamethasone Sod Phosphate 10 Mg/Ml 1 Ml Vial IVP 6 mg DAILY [facility] Administration Enoxaparin Sodium 80 mg 02/22/21 09:00 Enoxaparin 80 Mg/0.8 Ml Syringe SQ Q12HR [facility] Gabapentin 1,600 mg 02/02/21 21:00 02/22/21 09:48 Gabapentin 400 Mg Cap PO 1,600 mg BID [facility] Administration Propofol 1,000 mg/ IV Solution 100 mls @ 0 mls/hr 02/05/21 20:45 02/20/21 20:49 IV 15 mcg/kg/min .Q0M [facility] 14.22 mls/hr Administration Protocol Titrate Norepinephrine Bitartrate 4 mg 254 mls @ 31.453 mls/hr 02/05/21 22:00 02/22/21 10:21 / Sodium Chloride IV 0.15 mcg/kg/min .Q8H5M [facility] 94.359 mls/hr Administration Protocol 0.05 MCG/KG/MIN Dextrose/Water 1,000 mls @ 75 mls/hr 02/14/21 10:45 02/22/21 01:42 Dextrose 5%-Water Iv Soln IV 50 mls/hr .[id number] [facility] Administration Cefepime HCl 2 gm/ Sodium 100 mls @ 25 mls/hr 02/20/21 16:00 02/22/21 09:57 Chloride IVPB 25 mls/hr Q8HR [facility] Administration Amiodarone HCl 450 mg/ 250 mls @ 16.667 mls/hr 02/22/21 05:00 02/22/21 05:16 Dextrose/Water IV 02/22/21 22:59 0.5 mg/min .Q15H [facility] 16.667 mls/hr Administration Protocol 0.5 MG/MIN Insulin Aspart 0 unit 02/07/21 00:15 02/22/21 05:24 Insulin Aspart (Novolog) 100 Unit/Ml Vial SQ 7 unit Q6H [facility] Administration Protocol Insulin Detemir 38 unit 02/22/21 21:00 Insulin Detemir (Levemir) 100 Unit/Ml Syr SQ HS [facility] Midodrine 10 mg 02/11/21 12:30 02/22/21 06:03 Midodrine 5 Mg Tab PO 10 mg AC-TID [facility] Administration Naloxone HCl 0.2 mg 02/02/21 16:30 Naloxone 0.4 Mg/Ml 1 Ml Vial IV Q2M PRN Opioid Reversal Pantoprazole Sodium 40 mg 02/05/21 21:00 02/22/21 09:47 Pantoprazole 40 Mg/10 Ml Vial IVP 40 mg DAILY [facility] Administration Zinc Sulfate 220 mg 02/03/21 09:00 02/22/21 09:48 Zinc Sulfate 220 Mg Cap PO 220 mg DAILY [facility] Administration Intake and Output 02/21/21 02/22/21 02/22/21 22:59 06:59 14:59 Intake Total 2244.752 5892.138 254 Output Total 1050 885 Balance 733.293 4474.138 254 Intake: IV 424 424 Dextrose 5% in Water 1, 400 400 000 ml @ 50 mls/hr IV . Q20H [facility] Rx#:[id number] presssure bag 24 24 Intake, IV Titration 212.251 469.138 254 Amount Cefepime 2 gm In Sodium 100 Chloride 0.9% 100 ml @ 25 mls/hr IVPB Q8HR [facility] Rx# :[id number] Norepinephrine 4 mg In 112.251 469.138 254 Sodium Chloride 0.9% 250 ml @ 0.05 MCG/KG/MIN 31. 453 mls/hr IV .Q8H5M [facility] Rx#:[id number] Tube Feeding 531 472 Other 600 Output: Urine 1050 885 Other: Voiding Method Indwelling Catheter Indwelling Catheter # Bowel Movements 1 Weight 153.1 kg 02/22/21 03:20 02/22/21 03:20 EKG Interpretations (text) Atrial fibrillation with RVR Assessment and Plan (1) Atrial fibrillation with RVR Current Visit: Yes Status: Acute Code(s): I48.91 - UNSPECIFIED ATRIAL FIBRILLATION SNOMED Code(s): 308667563294579 (2) Acute respiratory failure with hypoxia Current Visit: Yes Status: Acute Code(s): J96.01 - ACUTE RESPIRATORY FAILURE WITH HYPOXIA SNOMED Code(s): 50023542 (3) COVID-19 Current Visit: Yes Status: Acute Code(s): U07.1 - COVID-19 SNOMED Code(s): 415806843 (4) Morbid obesity due to excess calories Current Visit: Yes Status: Acute Code(s): E66.01 - MORBID (SEVERE) OBESITY DUE TO EXCESS CALORIES SNOMED Code(s): 464591133 Plan: Continue with IV amiodarone and switch to by mouth amiodarone. May use small dose of beta lisa as tolerated. Get an echocardiogram to assess LV function. Prognosis poor
[2021-02-22 11:56] LABS: Glucose,Whole Blood 221 mg/dL (75-99)
[2021-02-22] MEDS: ENOXAPARIN 80 MG/0.8 ML SYRINGE SQ SCH ×2 (12:16→20:54)
[2021-02-22] MEDS: NOREPINEPHRINE 32 MG in SODIUM CHLORIDE 0.9% 218 ML IV SCH (13:16)
--- NOTE | 2021-02-22 13:24 | PN ---
PROGRESS NOTE Patient is seen for followup for acute kidney injury and hypernatremia. The patient developed atrial fibrillation with RVR last night, is currently maintained on amiodarone. Blood pressure is 101-120 mmHg systolic. Urine output is maintained at 50- 100 cc an hour. Patient remains on the vent. He is not examined. Case is discussed with nursing staff. Vital signs are reviewed. Blood pressure 101/64, heart rate 146 per minute. He is afebrile. The patient's FiO2 is at 50%. He is maintained on amiodarone drip. The patient is also receiving D5W which was increased to 75 mL an hour. He is on a small dose of Levophed at 0.15 mcg/kg per minute and propofol. LABS: Reviewed sodium 151, potassium 4.4, chloride 114, BUN 100, serum creatinine 1.18, hemoglobin 14.0 g/dL. ASSESSMENT: 1. Acute kidney injury, currently improved. 2. Volume overload maintained on IV Lasix which we will continue. 3. Hypernatremia associated with free water deficit maintained on D5W and receiving free water down the feeding tube. I will increase this to 300 q.4 hours and continue with the D5W at 75 mL an hour. 4. Acute hypoxic respiratory failure. 5. COVID pneumonia. PLAN: Increase free water down the feeding tube to 300 cc q4 hours. Repeat labs in a.m. Continue with the Lasix. JALYN / KELLI: [id number] /
[2021-02-22] MEDS ORDERED: DIGOXIN 250 MCG/ML 2 ML AMP IVP ONE (15:46)
[2021-02-22 17:06] LABS: Glucose,Whole Blood 287 mg/dL (75-99)
[2021-02-22] MEDS ORDERED: CHLORHEXIDINE GLUCONATE 15 ML CUP MUCOUS MEM ONE (20:52)
[2021-02-22] MEDS: AMIODARONE 200 MG TAB PO SCH (20:54)
[2021-02-22] MEDS ORDERED: INSULIN DETEMIR (LEVEMIR) 100 UNIT/ML SYR SQ SCH (21:00)
[2021-02-22 23:33] LABS: Glucose,Whole Blood 292 mg/dL (75-99)
[2021-02-23] MEDS ORDERED: DEXTROSE 5% IN WATER 100 ML with AMIODARONE 150 MG IV ONE ×2
[2021-02-23] MEDS: ACETAMINOPHEN TAB 325 MG TAB PO PRN ×2 (00:20→14:24)
[2021-02-23] MEDS: INSULIN ASPART (NovoLOG) 100 UNIT/ML VIAL SQ SCH ×4 (00:20→18:09)
[2021-02-23] MEDS: AMIODARONE 450 MG in DEXTROSE 5% IN WATER 250 ML IV SCH ×4 (00:34→06:08)
[2021-02-23] MEDS: NOREPINEPHRINE 32 MG in SODIUM CHLORIDE 0.9% 218 ML IV SCH ×5 (02:10→19:58)
[2021-02-23 04:18] LABS: Albumin 2.4 g/dL (3.5-5.0); Calcium 8.1 mg/dL (8.4-10.2); Potassium 5.3 mmol/L (3.5-5.1); Total Protein 5.5 g/dL (6.3-8.2)
[2021-02-23 04:32] LABS: Basophils # (A) 0.1 k/uL (0-0.2); Basophils % (A) 1 %; Eosinophils % (A) 0 %; HCT 44.6 % (39.0-53.0); HGB 13.4 gm/dL (13.0-17.5); Hypochromasia Marked; Lymphocytes # (A) 0.9 k/uL (1.0-4.8); Lymphocytes % (A) 6 %; MCH 32.3 pg (25.0-35.0); MCHC 30.1 g/dL (31.0-37.0); MCV 107.5 fL (80.0-100.0); Macrocytosis Moderate; Mean Platelet Volume 11.4; Monocytes # (A) 0.5 k/uL (0-1.0); Monocytes % (A) 3 %; Neutrophils # (A) 13.3 k/uL (1.3-7.7); Neutrophils % (A) 89 %; Platelet Count 139 k/uL (150-450); RBC 4.15 m/uL (4.30-5.90); RDW 14.4 % (11.5-15.5)
[2021-02-23 05:28] LABS: ABG Base Excess -1.9 mmol/L; ABG HCO3 25 mmol/L (21-25); ABG Oxygen Saturation 94.6 % (94-97); ABG PCO2 57 mmHg (35-45); ABG PH 7.25 (7.35-7.45); ABG PO2 76 mmHg (83-108); ABG TCO2 27 mmol/L (19-24)
[2021-02-23 05:30] LABS: Glucose,Whole Blood 316 mg/dL (75-99)
[2021-02-23 05:32] LABS: Allen Test Performed? no
[2021-02-23] MEDS: MIDODRINE 5 MG TAB PO SCH ×3 (05:47→17:12)
--- NOTE | 2021-02-23 08:33 | P.PN ---
Subjective Progress Note Date: 02/23/21 This is a 60-year-old gentleman with codeine pneumonia. Was seen for treatment of atrial fibrillation. Patient has multiorgan dysfunction and also mechanical ventilator. Patient is on amiodarone drip. Patient was given additional bolus of amiodarone yesterday and increase the drip to 1 mg. However, his heart rate is in the 140s. His blood pressures were low, running in the range of 9200 systolic. His lab values showed white count of 15,000. Hemoglobin is 13.4. ABG shows acidosis with pH of 7.25 AO to the 76 on FiO2 of 50. He also received one dose of Lanoxin. We'll make consider adding IV Cardizem as tolerated. Overall patient prognosis is poor. 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 [id number] [facility] Rx#:[id number] presssure bag 39 33 3 Intake, IV Titration 538.419 665.304 Amount Amiodarone 450 mg In 250 Dextrose 5% in Water 250 ml @ 0.5 MG/MIN 16.667 mls/hr IV .Q15H [facility] Rx#: [id number] Amiodarone 450 mg In 185.554 Dextrose 5% in Water 250 ml @ 1 MG/MIN 33.333 mls/ hr IV .Q7H30M [facility] Rx#: [id number] Cefepime 2 gm In Sodium 100 Chloride 0.9% 100 ml @ 25 mls/hr IVPB Q8HR [facility] Rx# :[id number] Norepinephrine 32 mg In 229.750 Sodium Chloride 0.9% 218 ml @ 0.19 MCG/KG/MIN 13. 635 mls/hr IV .[id number] [facility] Rx#:[id number] Norepinephrine 4 mg In 438.419 Sodium Chloride 0.9% 250 ml @ 0.05 MCG/KG/MIN 31. 453 mls/hr IV .Q8H5M [facility] Rx#:[id number] Tube Feeding 177 649 59 Other 1200 Output: Urine 1236 375 Other: Voiding Method Indwelling Catheter Indwelling Catheter ABP, PAP, CO, CI - Last Documented Arterial Blood Pressure 83/53 - Exam This patient is not personally examined. Information is gathered from the chart and from nurses. Patient is still intubated. Neurologically unresponsive. Vital signs as described above - Labs CBC & Chem 7: 02/23/21 03:45 02/23/21 03:45 Labs: Abnormal Lab Results - Last 24 Hours (Table) 02/22/21 02/22/21 02/22/21 Range/Units 11:54 17:06 23:31 WBC (3.8-10.6) k/uL RBC (4.30-5.90) m/uL MCV (80.0-100.0) fL MCHC (31.0-37.0) g/dL Plt Count (150-450) k/uL Neutrophils # (1.3-7.7) k/uL Lymphocytes # (1.0-4.8) k/uL ABG pH (7.35-7.45) ABG pCO2 (35-45) mmHg ABG pO2 (83-108) mmHg ABG Total CO2 (19-24) mmol/L Potassium (3.5-5.1) mmol/L Chloride (98-107) mmol/L BUN (9-20) mg/dL Creatinine (0.66-1.25) mg/dL Glucose (74-99) mg/dL POC Glucose (mg/dL) 221 H 287 H 292 H (75-99) mg/dL Calcium (8.4-10.2) mg/dL Total Bilirubin (0.2-1.3) mg/dL AST (17-59) U/L ALT (4-49) U/L Alkaline Phosphatase (38-126) U/L Total Protein (6.3-8.2) g/dL Albumin (3.5-5.0) g/dL 02/23/21 02/23/21 02/23/21 Range/Units 03:45 03:45 05:25 WBC 15.0 H (3.8-10.6) k/uL RBC 4.15 L (4.30-5.90) m/uL MCV 107.5 H (80.0-100.0) fL MCHC 30.1 L (31.0-37.0) g/dL Plt Count 139 L (150-450) k/uL Neutrophils # 13.3 H (1.3-7.7) k/uL Lymphocytes # 0.9 L (1.0-4.8) k/uL ABG pH 7.25 L (7.35-7.45) ABG pCO2 57 H (35-45) mmHg ABG pO2 76 L (83-108) mmHg ABG Total CO2 27 H (19-24) mmol/L Potassium 5.3 H (3.5-5.1) mmol/L Chloride 109 H (98-107) mmol/L BUN 125 H* (9-20) mg/dL Creatinine 1.98 H (0.66-1.25) mg/dL Glucose 289 H (74-99) mg/dL POC Glucose (mg/dL) (75-99) mg/dL Calcium 8.1 L (8.4-10.2) mg/dL Total Bilirubin 5.0 H (0.2-1.3) mg/dL AST 2981 H (17-59) U/L ALT 943 H (4-49) U/L Alkaline Phosphatase 177 H (38-126) U/L Total Protein 5.5 L (6.3-8.2) g/dL Albumin 2.4 L (3.5-5.0) g/dL 02/23/21 Range/Units 05:29 WBC (3.8-10.6) k/uL RBC (4.30-5.90) m/uL MCV (80.0-100.0) fL MCHC (31.0-37.0) g/dL Plt Count (150-450) k/uL Neutrophils # (1.3-7.7) k/uL Lymphocytes # (1.0-4.8) k/uL ABG pH (7.35-7.45) ABG pCO2 (35-45) mmHg ABG pO2 (83-108) mmHg ABG Total CO2 (19-24) mmol/L Potassium (3.5-5.1) mmol/L Chloride (98-107) mmol/L BUN (9-20) mg/dL Creatinine (0.66-1.25) mg/dL Glucose (74-99) mg/dL POC Glucose (mg/dL) 316 H (75-99) mg/dL Calcium (8.4-10.2) mg/dL Total Bilirubin (0.2-1.3) mg/dL AST (17-59) U/L ALT (4-49) U/L Alkaline Phosphatase (38-126) U/L Total Protein (6.3-8.2) g/dL Albumin (3.5-5.0) g/dL Microbiology - Last 24 Hours (Table) 02/18/21 13:44 Gram Stain - Final Trachea Wound Culture - Final Proteus penneri Strep agalactiae - (group b) Assessment and Plan (1) Atrial fibrillation with RVR Current Visit: Yes Status: Acute Code(s): I48.91 - UNSPECIFIED ATRIAL F IBRILLATION SNOMED Code(s): 781549139049818 (2) Acute respiratory failure with hypoxia Current Visit: Yes Status: Acute Code(s): J96.01 - ACUTE RESPIRATORY FAILURE WITH HYPOXIA SNOMED Code(s): 23935201 (3) COVID-19 Current Visit: Yes Status: Acute Code(s): U07.1 - COVID-19 SNOMED Code(s): 369059011 (4) Morbid obesity due to excess calories Current Visit: Yes Status: Acute Code(s): E66.01 - MORBID (SEVERE) OBESITY DUE TO EXCESS CALORIES SNOMED Code(s): 958243225 Plan: Continue current medical therapy. May consider small dose of IV Cardizem. Prognosis is poor
--- NOTE | 2021-02-23 09:06 | P.PN ---
Subjective Progress Note Date: 02/23/21 Principal diagnosis: Respiratory failure Patient remains on the ventilator. Since he was seen previously the patient has decompensated further. He is on high-dose vasopressors currently. White blood cell count remains elevated. LFTs significantly elevated today to shock liver. Tolerating tube feeds through nasogastric tube however. Still with some malodorous output from around the tracheostomy. Objective - Vital Signs Vital signs: Vital Signs Temp 100.5 F H 02/23/21 04:00 Pulse 144 H 02/23/21 07:00 Resp 29 H 02/23/21 07:00 BP 103/59 02/22/21 21:00 Pulse Ox 96 02/23/21 07:00 Intake & Output 02/22/21 02/23/21 02/23/21 18:59 06:59 18:59 Intake Total 2650.250 6418.304 137 Output Total 1236 375 Balance 534.776 0819.304 137 Intake: IV 989 858 78 Dextrose 5% in Water 1, 950 825 75 000 ml @ 75 mls/hr IV . [id number] [facility] Rx#:[id number] presssure bag 39 33 3 Intake, IV Titration 538.419 665.304 Amount Amiodarone 450 mg In 250 Dextrose 5% in Water 250 ml @ 0.5 MG/MIN 16.667 mls/hr IV .Q15H [facility] Rx#: [id number] Amiodarone 450 mg In 185.554 Dextrose 5% in Water 250 ml @ 1 MG/MIN 33.333 mls/ hr IV .Q7H30M [facility] Rx#: [id number] Cefepime 2 gm In Sodium 100 Chloride 0.9% 100 ml @ 25 mls/hr IVPB Q8HR [facility] Rx# :[id number] Norepinephrine 32 mg In 229.750 Sodium Chloride 0.9% 218 ml @ 0.19 MCG/KG/MIN 13. 635 mls/hr IV .[id number] [facility] Rx#:[id number] Norepinephrine 4 mg In 438.419 Sodium Chloride 0.9% 250 ml @ 0.05 MCG/KG/MIN 31. 453 mls/hr IV .Q8H5M [facility] Rx#:[id number] Tube Feeding 177 649 59 Other 1200 Output: Urine 1236 375 Other: Voiding Method Indwelling Catheter Indwelling Catheter ABP, PAP, CO, CI - Last Documented Arterial Blood Pressure 83/53 - Exam Neck: Tracheostomy tube in place, some foul-smelling seropurulent fluid seen coming around the skin wound, no erythema or crepitus Abdomen: Soft, nontender, mildly distended - Labs CBC & Chem 7: 02/23/21 03:45 02/23/21 03:45 Labs: Abnormal Lab Results - Last 24 Hours (Table) 02/22/21 02/22/21 02/22/21 Range/Units 11:54 17:06 23:31 WBC (3.8-10.6) k/uL RBC (4.30-5.90) m/uL MCV (80.0-100.0) fL MCHC (31.0-37.0) g/dL Plt Count (150-450) k/uL Neutrophils # (1.3-7.7) k/uL Lymphocytes # (1.0-4.8) k/uL ABG pH (7.35-7.45) ABG pCO2 (35-45) mmHg ABG pO2 (83-108) mmHg ABG Total CO2 (19-24) mmol/L Potassium (3.5-5.1) mmol/L Chloride (98-107) mmol/L BUN (9-20) mg/dL Creatinine (0.66-1.25) mg/dL Glucose (74-99) mg/dL POC Glucose (mg/dL) 221 H 287 H 292 H (75-99) mg/dL Calcium (8.4-10.2) mg/dL Total Bilirubin (0.2-1.3) mg/dL AST (17-59) U/L ALT (4-49) U/L Alkaline Phosphatase (38-126) U/L Total Protein (6.3-8.2) g/dL Albumin (3.5-5.0) g/dL 02/23/21 02/23/21 02/23/21 Range/Units 03:45 03:45 05:25 WBC 15.0 H (3.8-10.6) k/uL RBC 4.15 L (4.30-5.90) m/uL MCV 107.5 H (80.0-100.0) fL MCHC 30.1 L (31.0-37.0) g/dL Plt Count 139 L (150-450) k/uL Neutrophils # 13.3 H (1.3-7.7) k/uL Lymphocytes # 0.9 L (1.0-4.8) k/uL ABG pH 7.25 L (7.35-7.45) ABG pCO2 57 H (35-45) mmHg ABG pO2 76 L (83-108) mmHg ABG Total CO2 27 H (19-24) mmol/L Potassium 5.3 H (3.5-5.1) mmol/L Chloride 109 H (98-107) mmol/L BUN 125 H* (9-20) mg/dL Creatinine 1.98 H (0.66-1.25) mg/dL Glucose 289 H (74-99) mg/dL POC Glucose (mg/dL) (75-99) mg/dL Calcium 8.1 L (8.4-10.2) mg/dL Total Bilirubin 5.0 H (0.2-1.3) mg/dL AST 2981 H (17-59) U/L ALT 943 H (4-49) U/L Alkaline Phosphatase 177 H (38-126) U/L Total Protein 5.5 L (6.3-8.2) g/dL Albumin 2.4 L (3.5-5.0) g/dL 02/23/21 Range/Units 05:29 WBC (3.8-10.6) k/uL RBC (4.30-5.90) m/uL MCV (80.0-100.0) fL MCHC (31.0-37.0) g/dL Plt Count (150-450) k/uL Neutrophils # (1.3-7.7) k/uL Lymphocytes # (1.0-4.8) k/uL ABG pH (7.35-7.45) ABG pCO2 (35-45) mmHg ABG pO2 (83-108) mmHg ABG Total CO2 (19-24) mmol/L Potassium (3.5-5.1) mmol/L Chloride (98-107) mmol/L BUN (9-20) mg/dL Creatinine (0.66-1.25) mg/dL Glucose (74-99) mg/dL POC Glucose (mg/dL) 316 H (75-99) mg/dL Calcium (8.4-10.2) mg/dL Total Bilirubin (0.2-1.3) mg/dL AST (17-59) U/L ALT (4-49) U/L Alkaline Phosphatase (38-126) U/L Total Protein (6.3-8.2) g/dL Albumin (3.5-5.0) g/dL Microbiology - Last 24 Hours (Table) 02/18/21 13:44 Gram Stain - Final Trachea Wound Culture - Final Proteus penneri Strep agalactiae - (group b) Assessment and Plan (1) COVID-19 Narrative/Plan: Patient with decline in condition over the last 24-48 hours. Family is apparently considering comfort measures. Continue antibiotics per infectious disease. Continue tube feeds through nasogastric tube. Will follow. Current Visit: Yes Status: Acute Code(s): U07.1 - COVID-19 SNOMED Code(s): 918106689
[2021-02-23] MEDS: ENOXAPARIN 80 MG/0.8 ML SYRINGE SQ SCH ×2 (09:19→20:16)
[2021-02-23] MEDS: PANTOPRAZOLE 40 MG/10 ML VIAL IVP SCH (09:19)
[2021-02-23] MEDS: DEXAMETHASONE SOD PHOSPHATE 10 MG/ML 1 ML VIAL IVP SCH (09:19)
[2021-02-23] MEDS: ASCORBIC ACID 500 MG TAB PO SCH (09:20)
[2021-02-23] MEDS: CEFEPIME 2 GM in SODIUM CHLORIDE 0.9% 100 ML IVPB SCH (09:20)
[2021-02-23] MEDS: CHOLECALCIFEROL 25 MCG (1000 IU) TABLET PO SCH (09:20)
[2021-02-23] MEDS: AMIODARONE 200 MG TAB PO SCH ×2 (09:20→20:16)
[2021-02-23] MEDS: allopurinoL 300 MG TAB PO SCH ×2 (09:20→20:16)
[2021-02-23] MEDS: ZINC SULFATE 220 MG CAP PO SCH (09:20)
[2021-02-23] MEDS: GABAPENTIN 400 MG CAP PO SCH ×2 (09:20→20:16)
[2021-02-23] MEDS ORDERED: SODIUM CHLORIDE 0.9% 1,000 ML IV ONE ×2 (09:42→18:44)
--- NOTE | 2021-02-23 09:46 | P.PN ---
Subjective Progress Note Date: 02/23/21 Principal diagnosis: Acute hypoxic respiratory failure secondary to COVID-19 pneumonia requiring intubation and mechanical ventilation on 01/06/2021 61-year-old male patient, presented to the emergency department because of worsening shortness of breath and fatigue and weakness. He has several family members in his household tested positive for COVID 19. The patient himself is not vaccinated. His symptoms started approximately 5 or 6 days ago. He progressively became more short of breath and the patient presented to the emergency department very short of breath, hypoxic, initial pulse ox was 67% on room air oxygen. He was afebrile and he was tachycardic. His EKG showed normal sinus rhythm, sinus tachycardia, white cell count was at 7.6 with a hemoglobin of 15.9, he sodium level was 126, he had an acute kidney injury with a BUN of 65 with a creatinine of 1.8, the patient immediately checked positive for COVID 19. Lactic acid level was at 1.9. The patient was initially placed on 100% nonrebreather facemask. It improved his oxygen saturation. We are the process of switching this patient to a combination of Airvo and 100% on a beta facemasks pH chest x-ray shows some elevation of the right hemidiaphragm. The patient is morbidly obese with a BMI of 46.7. The chest x-ray also showed diffuse bilateral pulmonary infiltrates consistent with COVID 19 related pneumonia. The patient is started on steroids. inflammatory markers are still pending for now. Comorbid conditions include COPD/asthma, previous history of DVT, previous history of pancreatitis, hypertension. On 02/03/2021 patient seen in follow-up in the emergency department, he remains on BiPAP support with pressures of 16 and 6 and FiO2 of 100%, remains dyspneic, tachypneic, easily desaturates when the mask is removed to receive sips of water and oral medications. He is awake and alert, oriented 3. Answers questions appropriately. Afebrile, no completes of chest discomfort, occasional cough. Symptoms have been reviewed, CBC was unremarkable, lymphocyte count is stable at 0.44. Patient is on Coumadin, his INR today is 2.0, his d-dimer yesterday was 1.16, today sodium is improving and is up to 120, potassium is 4.3, chloride is 91, BUN is 60, creatinine is 1.8., His inflammatory markers are improving, his LDH is down to 893, CRP is still pending, his pro-calcitonin level is elevated at 0.69 suggesting possibility of underlying gastrointestinal infection, urinalysis is suggestive of acute urinary tract infection, urine culture has been sent and pending at this time. Rocephin has been added for empiric antibiotic coverage, patient is on Decadron 6 mg daily, he is on Coumadin as mentioned above, and he is receiving IV fluids with 0.9 normal saline at a rate of 75 per hour, he is on vitamin C, D and zinc. His chest x-ray from yesterday shows diffuse residual coarsening of moderate patchy airspace opacities bilaterally. On 02/05/2021 patient seen in follow-up on selective care unit, patient is currently on BiPAP with FiO2 100%, he is very restless, he frequently removes the tubing, becomes more short of breath, he desaturates, he has required lorazepam 1 mg every 4 hours for anxiety. He is currently on Decadron 6 more gram daily, he is on empiric antibiotics in the form of ceftriaxone, he is on Coumadin, and his INR today is 4.8, the rest of his lab work is still pending for today. His urinalysis showed possibility of urinary tract infection, urine culture not show any growth. No fever or chills. His last chest x-ray was done 2 days ago showing diffuse residual coarsening and moderate patchy airspace opacities bilaterally. There is chronic elevation of the right hemidiaphragm. His last set of inflammatory markers was on 02/03/2021, but noted improvements in his inflammatory markers. Reevaluated today on 02/06/2021, patient was transferred to the ICU yesterday, mostly because his pulmonary status continued to deteriorate, patient remained hypoxic, continued to remove his BiPAP mask, transferred into the ICU, placed on Precedex initially, and kept him on BiPAP, however patient continued to saturate, and I was notified about the nurses that his clinical status is getting worse, recommended immediate intubation and mechanical ventilation. Patient is now intubated, mechanically ventilated. He is on assist control rate of 30 tidal volume 450 FiO2 60% and PEEP of 14. ABG showed a pO2 of 86 pCO2 of 52 pH of 7.36, patient remains on multiple drips including propofol at 40 mcg/kg/m, fentanyl 1 mcg/kg/h Nimbex 1.5 mcg/kg/m. Patient is also requiring norepinephrine at 0.1 mcg/kg/m. LDH today is extremely high over 3000. WBC count is elevated at 20.7 hemoglobin 15.7 his electrolytes are normal however his renal profile showed a BUN of 77 creatinine 1.47 chest x-ray showed patchy bilateral infiltrates, slight improvement compared to chest x-ray prior to intubation. His INR today is 5.8, hence I plan to reverse his INR are at least give him fresh frozen plasma and vitamin K in order to safely place a central line and arterial line in this patient. Reevaluated today on 02/07/2021, patient remains in the ICU, intubated and mechanically ventilated. He is on assist control rate of 30 tidal volume 450 FiO2 50% and PEEP of 14. ABG showed a pO2 of 75 pCO2 48 pH of 7.40. Chest x- ray continues to show bilateral infiltrates with a right lower lobe consolidation. No changes were made in his ventilator settings today. Agent remains on multiple drips including propofol at 40 mcg/kg/m, fentanyl at 20 mcg/kg/h Nimbex at 2 mcg/minute, norepinephrine at 0.03 mcg/kg/m, IV fluid saline at 75 mL/h he is also on enteral feedings. LDH is improving down to 1966 CRP is 9 about the same. Electrolytes are about the same but BUN is 74 creatinine is 1.35. Again chest x-ray showed no major change since admission. Education list was reviewed, patient is on allopurinol, ascorbic acid, Rocephin, vitamin D, Decadron 6 mg IV push daily, Neurontin 1600 mg twice a day, lisinopril, insulin, lorazepam, patient is on Protonix 40 mg IV push daily, Coumadin 2 mg daily. And the patient is on zinc Reevaluated today on 02/08/2021, remains in the ICU, intubated and mechanically ventilated. Patient is on assist control rate of 30 tidal volume 450 FiO2 50% PEEP is 14. ABG showed a pO2 of 73 pCO2 46 pH of 7.40 hence no changes were made in his present ventilator settings. Chest x-ray continues to show not much of a significant change, bilateral infiltrates persist. Patient is on fentanyl at 1 mcg/kg/h, propofol at 40 mcg/kg/minute, Nimbex at 2 mcg/kg/m, norepinephrine at 0.02 mcg/kg/m. Patient is on vital AF rate 45 per hour. WBC count today 16.6 hemoglobin 14 INR 1.5 patient is on Coumadin for history of DVT. Sodium 145 potassium 4.4 chloride 111 bicarb 28 BUN is 74 creatinine is 1.22. Remains on vitamin C, Rocephin, vitamin D, Decadron 6 mg IV push daily, Neurontin, lisinopril, Protonix, Coumadin 2 mg daily and is also on zinc. Reevaluated today on 02/09/2021, patient remains in the ICU intubated and mechanically ventilated. He is on assist control rate of 30 tidal volume 450 FiO2 50% PEEP is 14. His ABG showed a pO2 of 96 pCO2 48 pH of 7.37, hence I recommended decreasing the PEEP down to 12. Patient is on multiple drips including fentanyl at 1 mcg/kg/h propofol at 40 mcg/kg/m Nimbex at 1.5 mcg/kg/m norepinephrine at 0.01 mcg/kg/m is also on enteral feeding in the form of vital AF 3 5 mL per hour. His labs showed relatively normal electrolytes except for slightly elevated sodium hence his IV fluid was changed to D545 at 50 mL per hour. Patient had relatively normal electrolytes otherwise except for the sodium being 146. His BUN is 76 creatinine is 1.24 slightly higher hence we'll increase his IV fluid today. Chest x-ray continues to show bilateral infiltrates, chest x-ray is not much different from his baseline. There may be a slight improvement in his right lower lobe consolidation. Endotracheal tube had to be advanced about to see and distally. Medications list was reviewed, patient is on allopurinol, albuterol, vitamin C, Rocephin, Peridex, vitamin D, Flexeril, Decadron 6 mg IV push daily, gabapentin, insulin as per scale, lisinopril with hydrochlorothiazide, Reglan when necessary, Protonix 40 mg IV push daily, and zinc. On today's evaluation of 02/18/2021, seeing the patient for a follow-up. Note that the patient is a subsequent with associated pneumonia Combigan by right- sided pneumothorax and currently the patient is a right-sided chest tube in place. This morning, the patient remains sedated without any paralysis. He is currently on propofol running at 50 mcg/kg per minute and fentanyl is running at 1 mcg/kg/h. He seems to be quite comfortable and I would suggest further sedation weaning on this patient. He remains on a mechanical ventilator. He is on assist control mode at a tidal volume of 450, FiO2 of 65%, PEEP was at 12 and the rate of 30. Blood gases from this morning showed a pH of 7.35 with a pCO2 57 and pO2 131. Chest x-ray shows evidence of emphysema on the right. No evidence of any pneumothorax. Right-sided chest tube is in a good location. No evidence of any air leak and the Pleur-evac and output from the chest tube has been minimal at this point in time. The chest x-ray however shows increased opacity in the right lung base and some elevation right hemidiaphragm probably some right basilar atelectasis along with diffuse bilateral pulmonary infiltrates as seen earlier. Tracheostomy tube is in a good location. Of sig nificance also was some bleeding around the tracheostomy tube stoma and IV heparin was discontinued. I will suggest restarting IV heparin knowing that the patient has bilateral lower extremity DVT. Sputum samples are to be the collected. In terms of his COVID 19 related pneumonia, his inflammatory markers were elevated still. Last inflammatory markers were obtained on 02/17/2021 and dose needs to be repeated. Most recent pro-calcitonin level from yesterday was at 0.6. Meanwhile, the patient is still pressor dependent and norepinephrine infusion is running at 0.1 Christiano respiratory per minute. Urine output is adequate. Overall fluid balance has been in the order of -3 L 4 02/18/2021 and -1.3 L or yesterday. The patient is currently on diuretics with Lasix 40 mg IV every 12 hours. He continues to have extensive edema in all 4 extremity is along with some areas of skin blistering in the lower extremities. On a separate note, the patient is currently off TPN. We are able to insert a NG tube in this patient. Currently is receiving vital high protein at the rate of 10 mL an hour and will make adjustments on the rate 60 Reevaluated today on 02/20/21, patient remains in the ICU, intubated and mechanically ventilated. He is status post tracheostomy. He is on assist contr ol rate of 30 tidal volume 450 FiO2 50% and PEEP of 12. Patient remains on propofol at 10 fentanyl at 1 mcg/kg/m. Mental status is poor, today I recommended that we discontinue all sedatives and determine whether the patient is going to have any neurological improvement in his mental status. He is on feeding using vital AF at 50 mL per hour. He could not get a PEG tube placed, continues to have enteral feeding via orogastric tube. Remains on cefepime empirically. Patient is also on norepinephrine at 0.06. ABG today showed a pO2 of 80 pCO2 48 pH of 7.40. Early discitis 15.0 hemoglobin 12.8. Basic metabolic profile is normal however BUN is up to 90 creatinine 1.14. Medications were r eviewed, patient is on albuterol, allopurinol, ascorbic acid, cefepime, chlorhexidine, Decadron 6 mg IV push daily, Lasix 40 mg IV push every 12 hours, gabapentin 1600 mg twice a day, heparin , and he is also on zinc. Patient is receiving midodrine 10 mg 3 times a day. And on insulin as per protocol Accu- Cheks asked x-ray continues to show right-sided pneumothorax about 25% although the chest tube is in place, and there is also some consolidation noted at the bases bilaterally. Reevaluated today on 02/21/2021, patient remains in the ICU, intubated and mechanically ventilated. Remains on assist control rate of 30 tidal volume 450 FiO2 50% and PEEP of 12. ABG today showed a pO2 of 84 pCO2 51 pH of 7.37. Chest x-ray continues to show bilateral infiltrates. Chest x-ray continues to show a stable right-sided pneumothorax. With chest tube in place. Patient remains on norepinephrine at 0.08 mcg/kg/m, he is also on fentanyl 1 mcg/kg/h. Remains on vital AF at 50 mL per hour/goal. His IV fluid today was increased in the form of D5 W-2 50 mL per hour. Sodium was noted to be 147 today. Renal profile showed a pO2 of 95 creatinine 1.28. WBC count is 14.5 hemoglobin is 13.6. Mental status basically remains about the same. I am still recommending every day to go on sedation holiday, and continue to assess mental status, we will discontinue fentanyl this morning and hopefully get some adequate mental assessment. Remains on the COVID-19 cocktail. Remains on cefepime, Decadron 6 mg IV push daily, Lasix is 40 mg IV push every 12 hours, gabapentin, heparin, patient is also on Protonix and zinc. Reevaluated today on 02/22/21, he remains in the ICU, intubated and mechanically ventilated. Patient is off all sedation, he is still receiving enteral feeding, he is on assist control rate of 30 tidal volume 450 FiO2 50% PEEP is 12. ABG showed a pO2 of 84 pCO2 54 pH of 7.34 WBC count is 15.5 hemoglobin is 14.0, sodium is 151 potassium 4.4 chloride 114 BUN is 100 creatinine 1.18. Patient is requiring norepinephrine to maintain adequate blood pressure, his also on amiodarone at 0.5 mg/m for his atrial fibrillation which she developed yesterday, and he was placed on amiodarone as per protocol. Cardiology is evaluating the patient today for his atrial fibrillation with RVR, presently his rate remains poorly controlled. Considering his renal profile, went ahead and discontinued his Lasix. Patient is receiving free water to correct his hypernatremia. Asked x-ray today continues to show evidence of right-sided pneumothorax, stable right thoracostomy tube in proper position, small right pleural effusion is noted. Otherwise no major change Reevaluated today on 02/23/21, patient remains in the ICU, intubated and mechanically ventilated. Patient is off sedation, however his mental status remains poor and the patient remains unresponsive to any stimuli. He is requiring more hemodynamic support with higher dose of norepinephrine and a may start the patient on vasopressin today. He is on assist control rate of 30 volume 450 FiO2 50% PEEP to 12. He is on norepinephrine and is also on amiodarone drip at 1 mg/m. Remains off sedation. Chest x-ray today continues to show bilateral infiltrates, but improved compared to baseline. Chest tube was noted to be almost out of the pleural space, and this was advanced. Follow- up chest x-ray showed adequate positioning of the chest tube. Patient is not showing any significant neurological improvement. The MUGA scan today is 15.0 hemoglobin 15.4 ABG showed a pO2 of 76 pCO2 57 pH of 7.5. Electrolytes are no rmal BUN is 125 creatinine is 1.98, and Lasix is presently on hold. Patient will be given a fluid bolus today for hypertension. He remains empirically on antibiotics in the form of cefepime. He is on the COVID-19 cocktail. Lovenox 80 mg subcu twice a day for his atrial fibrillation and history of DVT. Presently off sedatives and paralytics Objective - Vital Signs Vital signs: Vital Signs Temp 100.5 F H 02/23/21 04:00 Pulse 144 H 02/23/21 07:00 Resp 29 H 02/23/21 07:00 BP 103/59 02/22/21 21:00 Pulse Ox 96 02/23/21 07:00 Intake & Output 02/22/21 02/23/21 02/23/21 18:59 06:59 18:59 Intake Total 5547.262 4769.304 236.994 Output Total 1236 375 Balance 422.500 3296.304 236.994 Intake: IV 989 858 78 Dextrose 5% in Water 1, 950 825 75 000 ml @ 75 mls/hr IV . [id number] [facility] Rx#:[id number] presssure bag 39 33 3 Intake, IV Titration 538.419 665.304 99.994 Amount Amiodarone 450 mg In 250 Dextrose 5% in Water 250 ml @ 0.5 MG/MIN 16.667 mls/hr IV .Q15H [facility] Rx#: [id number] Amiodarone 450 mg In 185.554 Dextrose 5% in Water 250 ml @ 1 MG/MIN 33.333 mls/ hr IV .Q7H30M [facility] Rx#: [id number] Cefepime 2 gm In Sodium 100 Chloride 0.9% 100 ml @ 25 mls/hr IVPB Q8HR [facility] Rx# :[id number] Norepinephrine 32 mg In 229.750 99.994 Sodium Chloride 0.9% 218 ml @ 0.19 MCG/KG/MIN 13. 635 mls/hr IV .[id number] [facility] Rx#:[id number] Norepinephrine 4 mg In 438.419 Sodium Chloride 0.9% 250 ml @ 0.05 MCG/KG/MIN 31. 453 mls/hr IV .Q8H5M [facility] Rx#:[id number] Tube Feeding 177 649 59 Other 1200 Output: Urine 1236 375 Other: Voiding Method Indwelling Catheter Indwelling Catheter ABP, PAP, CO, CI - Last Documented Arterial Blood Pressure 83/53 - Exam GENERAL EXAM: Revealed a 60-year-old white male morbidly obese intubated and mechanically ventilated., Patient has tracheostomy , seems intact. HEAD: Normocephalic/atraumatic. Neck estimated intact. HEENT: PERRLA, EOMI, nonicteric, no neck masses, moist mucous membranes, CHEST: No chest wall deformity. Symmetrical expansion. LUNGS: Crackles bilaterally mostly at the bases. Right-sided chest tube is noted. CVS: Regular rate and rhythm, normal S1 and S2, no gallops, no murmurs, no rubs ABDOMEN: Obese, Soft, nontender. No hepatosplenomegaly, normal bowel sounds, no guarding or rigidity. EXTREMITIES: No clubbing, no cyanosis, 2+ pulses and upper and lower extremities. With venous stasis changes noted in lower extremities. 2+ bipedal edema. SKIN: No rashes, except for chronic venous stasis changes and brawny discoloration of the lower extremities. Her evidence of blistering on the dorsal aspect of the left foot, toes are turning purple, patient remains on norepinephrine. CENTRAL NERVOUS SYSTEM: Unresponsive to any stimuli, in spite of being off all sedatives and narcotics for the last 2 days. - Labs CBC & Chem 7: 02/23/21 03:45 02/23/21 03:45 Labs: Abnormal Lab Results - Last 24 Hours (Table) 02/22/21 02/22/21 02/22/21 Range/Units 11:54 17:06 23:31 WBC (3.8-10.6) k/uL RBC (4.30-5.90) m/uL MCV (80.0-100.0) fL MCHC (31.0-37.0) g/dL Plt Count (150-450) k/uL Neutrophils # (1.3-7.7) k/uL Lymphocytes # (1.0-4.8) k/uL ABG pH (7.35-7.45) ABG pCO2 (35-45) mmHg ABG pO2 (83-108) mmHg ABG Total CO2 (19-24) mmol/L Potassium (3.5-5.1) mmol/L Chloride (98-107) mmol/L BUN (9-20) mg/dL Creatinine (0.66-1.25) mg/dL Glucose (74-99) mg/dL POC Glucose (mg/dL) 221 H 287 H 292 H (75-99) mg/dL Calcium (8.4-10.2) mg/dL Total Bilirubin (0.2-1.3) mg/dL AST (17-59) U/L ALT (4-49) U/L Alkaline Phosphatase (38-126) U/L Total Protein (6.3-8.2) g/dL Albumin (3.5-5.0) g/dL 02/23/21 02/23/21 02/23/21 Range/Units 03:45 03:45 05:25 WBC 15.0 H (3.8-10.6) k/uL RBC 4.15 L (4.30-5.90) m/uL MCV 107.5 H (80.0-100.0) fL MCHC 30.1 L (31.0-37.0) g/dL Plt Count 139 L (150-450) k/uL Neutrophils # 13.3 H (1.3-7.7) k/uL Lymphocytes # 0.9 L (1.0-4.8) k/uL ABG pH 7.25 L (7.35-7.45) ABG pCO2 57 H (35-45) mmHg ABG pO2 76 L (83-108) mmHg ABG Total CO2 27 H (19-24) mmol/L Potassium 5.3 H (3.5-5.1) mmol/L Chloride 109 H (98-107) mmol/L BUN 125 H* (9-20) mg/dL Creatinine 1.98 H (0.66-1.25) mg/dL Glucose 289 H (74-99) mg/dL POC Glucose (mg/dL) (75-99) mg/dL Calcium 8.1 L (8.4-10.2) mg/dL Total Bilirubin 5.0 H (0.2-1.3) mg/dL AST 2981 H (17-59) U/L ALT 943 H (4-49) U/L Alkaline Phosphatase 177 H (38-126) U/L Total Protein 5.5 L (6.3-8.2) g/dL Albumin 2.4 L (3.5-5.0) g/dL 02/23/21 Range/Units 05:29 WBC (3.8-10.6) k/uL RBC (4.30-5.90) m/uL MCV (80.0-100.0) fL MCHC (31.0-37.0) g/dL Plt Count (150-450) k/uL Neutrophils # (1.3-7.7) k/uL Lymphocytes # (1.0-4.8) k/uL ABG pH (7.35-7.45) ABG pCO2 (35-45) mmHg ABG pO2 (83-108) mmHg ABG Total CO2 (19-24) mmol/L Potassium (3.5-5.1) mmol/L Chloride (98-107) mmol/L BUN (9-20) mg/dL Creatinine (0.66-1.25) mg/dL Glucose (74-99) mg/dL POC Glucose (mg/dL) 316 H (75-99) mg/dL Calcium (8.4-10.2) mg/dL Total Bilirubin (0.2-1.3) mg/dL AST (17-59) U/L ALT (4-49) U/L Alkaline Phosphatase (38-126) U/L Total Protein (6.3-8.2) g/dL Albumin (3.5-5.0) g/dL Microbiology - Last 24 Hours (Table) 02/18/21 13:44 Gram Stain - Final Trachea Wound Culture - Final Proteus penneri Strep agalactiae - (group b) Assessment and Plan Assessment: #1. Acute COVID-19, patient presented with worsening shortness of breath of 5 days duration, and she was not a candidate for Remdesivir related to severity of his hypoxia. Baricitinib was started on 02/02/2021 which will be discontinued today on 02/03/2021 related to possibility of underlying urinary tract infection. Patient was initially DO NOT RESUSCITATE CODE STATUS, however the changes CODE STATUS after she was updated on his condition when he was on the medical floor. And she reversed his CODE STATUS to full code, hence patient was transferred to the ICU on 01/06/2021, intubated and mechanically ventilated. Patient was intubated on 02/05 tracheostomy on 02/14 PEG tube could not be inserted. Patient developed a right-sided pneumothorax requiring chest tube placement continues to have a small right sided pneumothorax. And chest tube is in place. Still requiring norepinephrine intermittently. Patient continues to have no neurological responses in spite of being off sedation the last 2 days #2. Acute hypoxic respiratory failure , requiring intubation and mechanical ventilation on 01/06, patient failed BiPAP, changes CODE STATUS from DO NOT RESUSCITATE to full code. #3. Acute kidney injury related to intravascular volume depletion and dehy dration being followed by nephrology. Today I believe the patient will need more fluids and he'll be given fluid boluses. #4. Acute electrolytes imbalance, resolved. #5. Previous history of DVT on Coumadin, was on heparin which was discontinued placed him on Lovenox 80 mg subcu twice a day. 6. Obesity with BMI of 46.7 kg/m #7. Chronic back pain #8. History of COPD/asthma #9. Previous history of pancreatitis #10. Hypertension #11. Acute right-sided pneumothorax, as a complication from COVID-19 pneumonia, expected status post right sided chest tube placement by Dr. Rosa. #12 new onset atrial fibrillation with RVR on 02/22, patient placed on amiodarone drip, remains on amiodarone drip at 1 mg/m today. Recommendations Continue ventilatory support. Continue same ventilator settings at present he is on assist control rate of 30 tidal volume 450 FiO2 50% PEEP of 12. No changes in vent settings made today.. Continue Lovenox and monitor for any signs of bleeding continue amiodarone and cardiology see on consultation. Continue nutritional support/enteral feeding Continue enteral feeding. Continue COVID-19 cocktail. Continue Decadron. Keep patient off sedatives , consider CT of the brain since the patient is not recovering neurologically in spite of holding sedation for the last 2 days. Continue to monitor x-rays on a daily basis as well as inflammatory markers. Continue GI and DVT prophylaxis. Prognosis is extremely poor and guarded. Continue cefepime empirically Continue gabapentin CODE STATUS is now DO NOT RESUSCITATE Critical care time is over 30 Time with Patient: Greater than 30
[2021-02-23] MEDS: SODIUM CHLORIDE 0.9% 50 ML with VASOPRESSIN 20 UNIT IVPB SCH ×2 (10:42)
[2021-02-23] MEDS: DEXTROSE 5% IN WATER 1,000 ML IV SCH ×2 (10:43→10:44)
--- NOTE | 2021-02-23 11:04 | XR ---
EXAMINATION TYPE: XR chest 1V portable DATE OF EXAM: 02/23/2021 COMPARISON: February 22, 2021 HISTORY: 60 years Male. STUDY INDICATION GIVEN: follow up pneumo . TECHNIQUE: AP chest radiograph IMPRESSION: Stable bilateral left greater than right airspace and interstitial opacities. No pneumothorax or large effusion. Cardiomediastinal silhouette within normal limit. Tracheostomy and enteric tube stable in positioning. The tip of the right jugular central venous cat heter projects at the superior cavoatrial junction.
--- NOTE | 2021-02-23 11:13 | XR ---
EXAMINATION TYPE: XR chest 1V portable DATE OF EXAM: 02/23/2021 COMPARISON: 01/24/2021 HISTORY: 60 years Male. STUDY INDICATION GIVEN: post advancement of right chest tube . TECHNIQUE: AP chest reviewed IMPRESSION: Tip of the right thoracostomy tube now lies in the medial aspect of the upper right pleural space. Remaining lines and tubes are stable in position. The right-sided pneumothorax is moderate in size and decreased in the interval. Airspace and interstitial opacities are not significantly changed in appearance considering the diffe rence in technique. Small right pleural effusion is now more apparent compared to the prior. No left effusion. Stable cardiomediastinal silhouette.
--- NOTE | 2021-02-23 11:19 | PN ---
PROGRESS NOTE Patient is seen for followup for acute kidney injury. Overnight patient's general condition has deteriorated. He is on much higher dose of Levophed and will be starting vasopressin. His urine output is decreased. It was at about 100 to 75 mL/hour. Patient has been off of sedation but has not been waking up. There is plan for a CT scan of the head today. Levophed is at about 0.75 mcg/kg per minute and vasopressin is at 4.59 mL/hour. On examination today, blood pressure noted to be 83/53, heart rate 140 per minute. Patient's temperature is 100.5 degrees Fahrenheit. Case is discussed with nursing staff. Patient remains on the vent. FiO2 is at 50%. He is significantly edematous. Case is discussed with nursing staff. Labs show sodium 144, potassium 5.3, chloride 109, BUN 125, creatinine 1.98, hemoglobin 13.4 g/dL. ASSESSMENT: 1. Acute kidney injury. Renal function is worse today secondary to hypotension. Patient is not an ideal candidate for dialysis, given the significant hypotension and max dose of pressors needed. Current blood pressure 80s systolic. 2. Mild hyperkalemia associated with acute kidney injury and hyperglycemia, currently nonoliguric. 3. Acute hypoxic respiratory failure, currently on the vent. 4. COVID pneumonia. 5. Encephalopathy. Patient has been off of sedation with no improvement in mentation. PLAN: Not a candidate for renal replacement therapy, given the significant hypotension and hemodynamic instability. Continue with the free water for now. Overall prognosis is guarded. MMODL / IJN: [id number] /
[2021-02-23 11:46] LABS: Glucose,Whole Blood 204 mg/dL (75-99)
--- NOTE | 2021-02-23 15:01 | P.PN ---
Subjective Patient is 60-year-old male with a known history of asthma/COPD, history of DVT, chronic low back pain, osteoarthritis and morbid obesity with BMI 46.7 presents to ER with complaints of generalized weakness and fatigue and worsening shortness of breath and exertional dyspnea. Patient states that he has been having symptoms for the past 5-6 days and his and other family members were also tested positive for covid 19 infection. Patient has been having generalized weakness and fatigue. No complaints of chest pain. Does have cough without any sputum production. No nausea vomiting or abdominal pain or diarrhea. Chest x-ray showed diffuse residual coarsening and moderate patchy airspace opacities bilaterally. Findings may represent Covid 19 pneumonia. EKG showed normal sinus rhythm Laboratory data showed WBC 7.6 hemoglobin 10.9 and platelets 167 lymphocytes 0.4 INR 1.9 and d-dimer is 1.16 Sodium 126 potassium 4.8 chloride 89 BUN 6 T5 and creatinine 1.85 calcium 7.9 AST 219 ALT 55 alk phos 63 ALT is 2347 and CRP 24.0 Procalcitonin 0.69, Covid 19 PCR detected. Patient is not vaccinated. 02/03/2021 Patient is currently in the emergency room awaiting for self care unit transfer. Patient is currently on BiPAP 16 x 6 with 100% FiO2. Patient is still having shortness of breath and he appears to be in mild distress and unable to tolerate BiPAP. Otherwise patient has been afebrile. Currently being continued on dexamethasone, warfarin dosing and multivitamins. Patient was started on ceftriaxone for possible urinary tract infection. Laboratory data showed sodium 128 potassium 4.3 chloride 91 BUN 60 and creatinine 1.8 LDH 893 and CRP 21.9 No complaints of chest pain. Patient is awake alert and oriented 3. Pulmonary is on board. 02/04/2021 Patient remains in the emergency department. Currently on BiPAP with 100% FiO2. Patient is saturating mid 80s. Sitting up in the bed. Still tachypneic and anxious. Awake alert and oriented. Laboratory showed WBC 11.2 hemoglobin 15.7 and platelets 202 lymphocytes 0.4 Sodium 131 potassium 4.3 chloride 94 bicarb is 28 BUN 75 creatinine 1.42. Urine culture is pending. Patient is being current on ceftriaxone. Patient is being continued on dexamethasone, Coumadin and multivitamins. Pulmonary is following. 02/05/2021 Patient is on BiPAP with FiO2 100%. Patient is restless and tachypneic. Pulling out tubes. Oxygen saturations around 82% to 90% while on BiPAP. Patient has been afebrile. Currently being continued on dexamethasone and Coumadin dosing. INR is 4.8 toda y. Laboratory data showed WBC 16.1 hemoglobin 16.1 platelets 170 BUN 77 creatinine 1.16 and troponin 0 0.042. Patient is also being current ceftriaxone for acute urinary tract infection. Urine culture showed no growth. Pulmonary is following. Patient does not want to get intubated. 02/06/2021 Patient was transferred to MICU. Intubated and on mechanical ventilator. Patient is sedated and multiple drips including propofol, fentanyl and Nimbex. Patient is also requiring norepinephrine. Laboratory showed WBC 20.7 hemoglobin 15.7 platelets 173 INR 5.8 Sodium 138 potassium 4.6 BUN 77 creatinine 1.43 LDH 3075 and CRP 15.1 AST 262 ALT 93 alk phos 94 and blood sugar is 188. Patient is being continued ceftriaxone, dexamethasone IV and Coumadin on hold. Patient is also on IV hydration with normal saline at 75 cc/h. Chest x-ray showed patchy infiltrates throughout both lung griffiths no change. Correlate clinically and follow-up and resolution is recommended. 02/07/2021 Patient is seen and evaluated and follow-up continues to be closely monitored in the ICU with pulmonary first mate following closely. Patient remains on sedation with propofol and fentanyl and is also continued on Nimbex and currently attempting to wean norepinephrine. Patient also continues on IV ceftriaxone for the possibility of a UTI although urine culture show no growth for 18 hours and will repeat pro calcitonin and consider discontinuing IV antibiotics. Patient also continues on vitamin and zinc along with Lovenox and IV dexamethasone and will continue. Pulmonary first mate following and patient continues to be on mechanical vent and FiO2 is at 50% with a PEEP of 14 and per nursing staff no attempts at weaning today. Chest x-ray was done and pending. Inflammatory markers continue to be elevated although trending down. 02/08/2021 This is a pleasant 60 years old male with multiple medical problems was admitted for respiratory distress secondary to bilateral Covid pneumonia and acute hypoxic respiratory failure and on the top of that bacterial superinfection is suspected with his procalcitonin elevated at 0.6 and 0.43 and patient was placed on ceftriaxone currently. Cystoscopy the ICU monitor closely and followed by pulmonary/critical care team. Labs showing leukocytosis of 16.6 while his steroids. D-dimer 1.5, LDH elevated 1965, CRP 9.0. Mildly elevated liver enzymes. He is also on warfarin with INR is subtherapeutic at 1.5. Creatinine is trending down to 1.4 down to 1.2 however patient looks like he has chronic kidney disease stage III. Currently covered with vitamin C, vitamin D, zinc, dexamethasone, ceftriaxone, normal saline 75 mL/h, warfarin and Protonix 02/09/2021 The patient remains in the ICU sedated and intubated on mechanical ventilation with pulmonary/critical care team following him closely. Patient remains clinically the same is still tachypneic he still on critical condition. WBC slightly better 13.6, liver enzymes mildly elevated, INR is 1.6 and today he will receive 3 mg of iodine. Sodium slightly elevated 146 and his IV fluid was changed to D5 half-normal saline. He remains on ceftriaxone, dexamethasone, multiple vitamins and warfarin 02/10/2021 Patient remains in critical condition needing intubation and sedation with pulmonary/critical care team following him closely and help with vent management. Distal significantly tachypneic. jesus stable, WBC is normal today 9.6. Creatinine 1.1. INR was 1.6 yesterday and 1.5 today and her receiving 3 mg today. Still on steroids, vitamins, also he received 1 time dose of Lasix while his ceftriaxone and D5 half-normal saline at 75Milliliters per hour both are discontinued 02/11/2021 Patient is in the ICU status post intubation. He is on mechanical ventilation with pulmonary/critical care team on the case. He still tachypneic with FiO2 of 70%. Labs showing leukocytosis 16 K, INR actually is trending down 1.4 and received 6 mg of warfarin today. Creatinine within baseline of 1.26. Sodium is stable at 145. His hydrochlorothiazide/lisinopril was discontinued for borderline blood pres sure on midodrine started. Remains on dexamethasone, vitamin C, D and zinc. 02/12/2021 patient remains in the ICU intubated and sedated with no much progress in his clinical condition despite optical medical treatment and prolonged hospitalization with pulmonary/critical care team following him closely. Today surgery team were consulted for PEG tube and tracheostomy placement on 02/14 Also he has bilateral DVT while his on warfarin, patient was started on heparin drip. He remains on dexamethasone, multiple vitamins. 02/13/2021 Patient is in the ICU status post intubation and mechanical ventilation with pulmonary/critical care team followed closely. Patient does not make much progress and pulmonary team recommendation PEG tube and tracheostomy placement on the consulted surgery with planned to do the procedure tomorrow. I called the spouse Mrs. Mervat morgan At [phone] and I discussed the case with her including the plan for tracheostomy and PEG tube placement by surgery team tomorrow and all her questions were answered to her satisfaction. Please there is no consent obtained by medical team for this procedure and this has been deferred to surgery team Abdomen the patient is tachypneic hypoxic, leukocytosis of 13 K which is slightly improving Also patient is on heparin drip for newly diagnosed bilateral DVT He is also on dexamethasone, vitamin C, D and zinc. 02/14/2021 Patient with no significant improvement she underwent tracheostomy and PEG tube placement by surgery team Other than that she remains on mechanical ventilation 02/15/2021 Patient remains in the ICU intubated and sedated with pulmonary/critical care team following him closely. He is status post tracheostomy and PEG tube placement. Labs look same as well as his hemodynamics is still on 50% FiO2 and tachypneic and 30. Renee stable at 13,000, liver enzymes still mildly elevated, creatinine 1.0. Sodium slightly improved down to 147 while he is on D5W at 75 mL/h. He still on dexamethasone, vitamin C D and zinc. Also he is on heparin drip for his bilateral DVT diagnosed on 02/1202/16/2021 patient remains intubated and sedated in the ICU with pulmonary/critical care team helped with mechanical ventilation. No much change today. Her FiO2 requirement increased to 70%. Labs looks stable or slightly improved with WBC down to 11.1, creatinine to 0.9, liver enzymes slightly better and sodium slightly bigger at 146. She remains on the same treatment of steroids, vitamins, heparin drip. Patient was taken off Nimbex today and kept on fentanyl and propofol 02/17/2021 Patient remains in the ICU sedated and intubated. With pulmonary/critical care team helping with the vent management. Patient hospital course today has been complicated by right lung collapse secondary to pneumothorax apparent on his chest x-ray from today. He status post chest tube placement. Labs reviewed, it looks stable, liver enzymes slightly trending up. Today IV Lasix 20 mg added. Communication Assistant. Continue with dexamethasone, multiple vitamins, heparin drip. 02/18/2021 Patient still intubated and sedated in the ICU with pulmonary/critical care team following closely. Patient status right-sided chest tube placement for right pneumothorax. Test Brookecalcitonin slightly increased 0.4 up to 0.6. However he finished his antibiotic dose. He still on dexamethasone and multiple vitamins and heparin drip. He is on IV Lasix 40 mg twice daily. He is getting TPN as well 02/19/2021 Patient's remains in critical condition while intubated and sedated in the ICU with pulmonary/critical care team following him closely. FiO2 lower to 50% today. He is running a fever of 102.5. And the WBC is 19,000. D-dimer elevated 4.3 but patient is on heparin drip for bilateral DVT. Inflammatory markers slightly better LDH 1286 but increased CRP 43.5. His tracheostomy wound culture growing gram-negative bacilli while chest x-ray showing diffuse bilateral infiltrates. Cefepime was added today while insulin increased slightly to 26 at bedtime. Discussed case with pulmonary/critical care team condition remains with guarded prognosis 02/20/2021 Patient remains critically ill in the ICU. Pulmonary/critical care team following the patient and help with vent management. He remains with FiO2 of 50%. At least a running fever of 102. Patient is tachypneic at 30. Labs show leukocytosis improvement slightly down to 15 K. Sodium 144 BMP is unremarkable. Chest x-ray showing 25% right pneumothorax and bilateral infiltrates. Patient remains on cefepime, dexamethasone, vitamins and heparin drip. D5W has been held at 20 mL per hour 02/21/2021 Patient's still sedated and intubated, however he's undergoing sedation holidays to assess his mental status with pulmonary/critical care team followed closely. This vent setting is reviewed. His FiO2 of 50%, his breathing is less tachypneic today. MOC slightly better 14 gait. Creatinine up to 1.2 sodium up to 147 and her menstrual D5W and Lasix per Communication Assistant. Cystoscopy dexamethasone and vitamins is covered with cefepime with sputum culture growing Proteus and Streptococcus agalactae. He is on heparin drip, Lasix IV and his insulin dose increased today to 33 units at night 02/22/2021 Patient in the ICU for bilateral pneumonia needing intubation and mechanical ventilation. With pulmonary/critical care team following closely. Patient had fever at 102 yesterday, he is febrile and tachypneic and tachycardic. FiO2 to 50%. His heart rate actually went up to 140-160 secondary to A. fib and RVR and patient was started on amiodarone drip And patient because this was started on Lovenox because heparin drip was held to days ago. Currently he is on therapeutic dose of Lovenox 80 mg twice a day. Local still slightly elevated and Levemir increased to 38 units. Chest x-ray showing slightly decreased right pneumothorax and slightly decreased bilateral infiltrates by radiologist. Sputum cultures growing Proteus and Streptococcus agalactiae and patient is on cefepime for suspected bacterial pneumonia superinfection on the top of his Coumadin infection. Also he is on dexamethasone, multiple vitamins, IV Lasix. 02/23/2021 Patient in a critical conditions in the ICU. He is on mechanical ventilation. Several consultants on the case with the fuel tank sealer and tester and critical care team. He is having called dusky feet and toes, there is faint pulsation. Today he is spiking a fever of 103. He is obviously tachypneic and tachycardic from severe sepsis and septic shock. His FiO2 remains 50%. Leukocytosis at 15,000. Creatinine trending up to 1.9. He is becoming and uric/oliguric. Communication Assistant team already on the case. Also fuel tank sealer and tester seen the patient for A. fib and RVR, he is been treated with amiodarone drip. Blood culture sent and wound cultures ordered. Patient kept on cefepime for now. Also remains on dexamethasone, multiple vitamins. He is on Lovenox 80 mg twice daily. Also today he is on vasopressin. Levemir increased to 38 units at bedtime Objective - Vital Signs Vital signs: Vital Signs Temp 97.8 F 02/23/21 08:00 Pulse 147 H 02/23/21 11:00 Resp 31 H 02/23/21 11:00 BP 103/59 02/22/21 21:00 Pulse Ox 96 02/23/21 11:00 Intake & Output 02/22/21 02/23/21 02/23/21 18:59 06:59 18:59 Intake Total 9921.084 2369.304 366.025 Output Total 1236 375 Balance 415.051 9524.304 366.025 Intake: IV 989 858 78 Dextrose 5% in Water 1, 950 825 75 000 ml @ 75 mls/hr IV . [id number] [facility] Rx#:[id number] presssure bag 39 33 3 Intake, IV Titration 538.419 665.304 170.025 Amount Amiodarone 450 mg In 250 Dextrose 5% in Water 250 ml @ 0.5 MG/MIN 16.667 mls/hr IV .Q15H [facility] Rx#: [id number] Amiodarone 450 mg In 185.554 Dextrose 5% in Water 250 ml @ 1 MG/MIN 33.333 mls/ hr IV .Q7H30M [facility] Rx#: [id number] Cefepime 2 gm In Sodium 100 Chloride 0.9% 100 ml @ 25 mls/hr IVPB Q8HR [facility] Rx# :[id number] Norepinephrine 32 mg In 229.750 170.025 Sodium Chloride 0.9% 218 ml @ 0.19 MCG/KG/MIN 13. 635 mls/hr IV .[id number] [facility] Rx#:[id number] Norepinephrine 4 mg In 438.419 Sodium Chloride 0.9% 250 ml @ 0.05 MCG/KG/MIN 31. 453 mls/hr IV .Q8H5M [facility] Rx#:[id number] Tube Feeding 177 649 118 Other 1200 Output: Urine 1236 375 Other: Voiding Method Indwelling Catheter Indwelling Catheter Indwelling Catheter ABP, PAP, CO, CI - Last Documented Arterial Blood Pressure 99/62 - Exam -GENERAL: The patient is intubated and sedated HEENT: Pupils are round and equally reacting to light. EOMI. No scleral icterus. No conjunctival pallor. Normocephalic, atraumatic. No pharyngeal erythema. No thyromegaly. CARDIOVASCULAR: S1 and S2 present. No murmurs, rubs, or gallops. -PULMONARY: Chest is clear to auscultation, no wheezing . bilateral crepitation. Right-sided chest tube Abdomen: soft, nontender, nondistended, normoactive bowel sounds. No palpable organomegaly. MUSCULOSKELETAL: No joint swelling or deformity. EXTREMITIES: No cyanosis, clubbing, or pedal edema. NEUROLOGICAL: Gross neurological examination did not reveal any focal deficits. SKIN: No rashes. no petechiae. - Labs CBC & Chem 7: 02/23/21 03:45 02/23/21 03:45 Labs: Abnormal Lab Results - Last 24 Hours (Table) 02/22/21 02/22/21 02/23/21 Range/Units 17:06 23:31 03:45 WBC 15.0 H (3.8-10.6) k/uL RBC 4.15 L (4.30-5.90) m/uL MCV 107.5 H (80.0-100.0) fL MCHC 30.1 L (31.0-37.0) g/dL Plt Count 139 L (150-450) k/uL Neutrophils # 13.3 H (1.3-7.7) k/uL Lymphocytes # 0.9 L (1.0-4.8) k/uL ABG pH (7.35-7.45) ABG pCO2 (35-45) mmHg ABG pO2 (83-108) mmHg ABG Total CO2 (19-24) mmol/L Potassium (3.5-5.1) mmol/L Chloride (98-107) mmol/L BUN (9-20) mg/dL Creatinine (0.66-1.25) mg/dL Glucose (74-99) mg/dL POC Glucose (mg/dL) 287 H 292 H (75-99) mg/dL Calcium (8.4-10.2) mg/dL Total Bilirubin (0.2-1.3) mg/dL AST (17-59) U/L ALT (4-49) U/L Alkaline Phosphatase (38-126) U/L Total Protein (6.3-8.2) g/dL Albumin (3.5-5.0) g/dL 02/23/21 02/23/21 02/23/21 Range/Units 03:45 05:25 05:29 WBC (3.8-10.6) k/uL RBC (4.30-5.90) m/uL MCV (80.0-100.0) fL MCHC (31.0-37.0) g/dL Plt Count (150-450) k/uL Neutrophils # (1.3-7.7) k/uL Lymphocytes # (1.0-4.8) k/uL ABG pH 7.25 L (7.35-7.45) ABG pCO2 57 H (35-45) mmHg ABG pO2 76 L (83-108) mmHg ABG Total CO2 27 H (19-24) mmol/L Potassium 5.3 H (3.5-5.1) mmol/L Chloride 109 H (98-107) mmol/L BUN 125 H* (9-20) mg/dL Creatinine 1.98 H (0.66-1.25) mg/dL Glucose 289 H (74-99) mg/dL POC Glucose (mg/dL) 316 H (75-99) mg/dL Calcium 8.1 L (8.4-10.2) mg/dL Total Bilirubin 5.0 H (0.2-1.3) mg/dL AST 2981 H (17-59) U/L ALT 943 H (4-49) U/L Alkaline Phosphatase 177 H (38-126) U/L Total Protein 5.5 L (6.3-8.2) g/dL Albumin 2.4 L (3.5-5.0) g/dL 02/23/21 Range/Units 11:30 WBC (3.8-10.6) k/uL RBC (4.30-5.90) m/uL MCV (80.0-100.0) fL MCHC (31.0-37.0) g/dL Plt Count (150-450) k/uL Neutrophils # (1.3-7.7) k/uL Lymphocytes # (1.0-4.8) k/uL ABG pH (7.35-7.45) ABG pCO2 (35-45) mmHg ABG pO2 (83-108) mmHg ABG Total CO2 (19-24) mmol/L Potassium (3.5-5.1) mmol/L Chloride (98-107) mmol/L BUN (9-20) mg/dL Creatinine (0.66-1.25) mg/dL Glucose (74-99) mg/dL POC Glucose (mg/dL) 204 H (75-99) mg/dL Calcium (8.4-10.2) mg/dL Total Bilirubin (0.2-1.3) mg/dL AST (17-59) U/L ALT (4-49) U/L Alkaline Phosphatase (38-126) U/L Total Protein (6.3-8.2) g/dL Albumin (3.5-5.0) g/dL Microbiology - Last 24 Hours (Table) 02/23/21 08:49 Anaerobic Culture - Preliminary Other - Other 02/23/21 08:49 Wound Culture - Preliminary Other - Other 02/18/21 13:44 Gram Stain - Final Trachea Wound Culture - Final Proteus penneri Strep agalactiae - (group b) Assessment and Plan Assessment: Bilateral Covid pneumonia, with superimposed bacterial infection Acute hypoxic respiratory failure, requiring mechanical ventilation, status post tracheostomy and PEG tube placement on 02/14 Increased inflammatory markers Acute kidney injury with oliguria Atrial fibrillation's with RVR. Right pneumothorax status post chest tube placement on 02/17 Chronic kidney disease, stage III history of DVT currently on anticoagulation with Coumadin. Morbid obesity with BMI 46.7 Chronic low back pain COPD/asthma Osteoarthritis Plan: This is a pleasant 60 years old male who presents with Bilateral Covid pneumonia and hypoxia Continue with vitamin C, vitamin D, and zinc. Continue with dexamethasone Pulmonary/ team consult Continue with mechanical ventilation for critical care team. Status post tracheostomy and PEG tube placement on 02/14 Lovenox therapeutic dose for DVT Right-sided chest tube add cefepime, follow-up once culture results from tracheostomy Continue with amiodarone drip. Cardiology team on the case Nephrology consult for oliguria already on the case Labs and medication were reviewed.. Continue same treatment. Continue with s ymptomatic treatment. Resume home medication. Monitor lytes and vitals. DVT and GI prophylaxis. Further recommendations as per clinical course of the patient DVT prophylaxis: warfarin/Lovenox GI Prophylaxis: Ppi Prognosis is guarded and
[2021-02-23] MEDS: ALBUTEROL HFA INHALER INHALATION PRN (15:36)
[2021-02-23 17:19] LABS: Glucose,Whole Blood 245 mg/dL (75-99)
[2021-02-23] MEDS ORDERED: CEFEPIME 2 GM in SODIUM CHLORIDE 0.9% 100 ML IVPB SCH (21:00)
[2021-02-23] MEDS ORDERED: INSULIN DETEMIR (LEVEMIR) 100 UNIT/ML SYR SQ SCH (21:00)
[2021-02-23 22:05] VITALS: RESP 30
[2021-02-24 00:14] LABS: Glucose,Whole Blood 289 mg/dL (75-99)
[2021-02-24] MEDS: INSULIN ASPART (NovoLOG) 100 UNIT/ML VIAL SQ SCH (00:15)
[2021-02-24] MEDS: NOREPINEPHRINE 32 MG in SODIUM CHLORIDE 0.9% 218 ML IV SCH ×2 (01:01→04:51)
[2021-02-24] MEDS: SODIUM CHLORIDE 0.9% 50 ML with VASOPRESSIN 20 UNIT IVPB SCH ×2 (02:41)
[2021-02-24] MEDS: DEXTROSE 5% IN WATER 1,000 ML IV SCH (03:19)
[2021-02-24 05:00] VITALS: TEMP 98.8
[2021-02-24 05:05] VITALS: BP 150/22; PULSE 83
--- NOTE | 2021-02-24 07:20 | P.DS ---
Providers Date of admission: 02/02/21 16:30 Attending physician: Heri Edouard Consults: 02/02/21 16:30 Consult Physician Routine Consulting Provider: Juanito Rosa Consult Reason/Comments: COVID Do you want consulting provider notified?: Yes 02/11/21 08:05 Consult Physician Routine Consulting Provider: Sav Jensen Consult Reason/Comments: covid, increasing CR Do you want consulting provider notified?: Yes 02/12/21 08:38 Consult Physician Routine Consulting Provider: Jacoby Funes Consult Reason/Comments: trach and peg, covid Do you want consulting provider notified?: Yes 02/17/21 07:55 Consult Physician Routine Consulting Provider: Erlinda Sarabia Consult Reason/Comments: insert NG via scope Do you want consulting provider notified?: Yes 02/22/21 08:36 Consult Physician Routine Consulting Provider: Adilene Kang Consult Reason/Comments: a fib rvr new onset Do you want consulting provider notified?: Yes Primary care physician: [facility] Course: Diagnoses: Bilateral Covid pneumonia, with superimposed bacterial infection Acute hypoxic respiratory failure, requiring mechanical ventilation, status post tracheostomy and PEG tube placement on 02/14 Increased inflammatory markers Acute kidney injury with oliguria Atrial fibrillation's with RVR. Right pneumothorax status post chest tube placement on 02/17 Chronic kidney disease, stage III history of DVT currently on anticoagulation with Coumadin. Morbid obesity with BMI 46.7 Chronic low back pain COPD/asthma Osteoarthritis Hospital course: Patient is 60-year-old male with a known history of asthma/COPD, history of DVT, chronic low back pain, osteoarthritis and morbid obesity with BMI 46.7 presents to ER with complaints of generalized weakness and fatigue and worsening shortness of breath and exertional dyspnea. Patient states that he has been having symptoms for the past 5-6 days and his and other family members were also tested positive for covid 19 infection. Patient has been having generalized weakness and fatigue. No complaints of chest pain. He has a prolonged course in the ICU followed by pulmonary/critical care team closely and he needed intubation and placed on mechanical ventilation. With bacterial superinfection is suspected he was treated with cefepime, steroids, vitamins, anticoagulation with heparin drip and later switched to Lovenox 80 mg twice daily for his bilateral DVT diagnosed on 02/12. Glucose were monitored and received insulin per protocol. His course was complicated by right pneumothorax chest tube placed and resolution and improvement. And yesterday he started developing oliguria renal failure. His prognosis was extremely poor and despite all treatment and Consultants he continued to decline gradually. 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 , please refer to note for more details Patient Condition at Discharge: Serious Plan - Discharge Summary Discharge Rx Participant: No New Discharge Prescriptions: No Action Meloxicam [Mobic] 7.5 mg PO DAILY oxyCODONE-APAP 10-325MG [Percocet 10-325 mg] 1 tab PO Q6H PRN PRN Reason: Pain Ammonium Lactate Cream [Lac-Hydrin 12% Cream] 1 applic TOPICAL DAILY PRN PRN Reason: Dry Skin Cephalexin [Keflex] 500 mg PO Q12HR Famotidine [Pepcid] 40 mg PO HS Lisinopril-Hctz 10-12.5 mg [Zestoretic 10-12.5] 1 tab PO BID predniSONE See Taper PO DAILY Albuterol Inhaler [Ventolin Hfa Inhaler] 2 puff INHALATION RT-Q4H PRN PRN Reason: Shortness Of Breath Allopurinol [Zyloprim] 300 mg PO BID Cyclobenzaprine [Flexeril] 10 mg PO TID PRN PRN Reason: Muscle Spasm Diclofenac Sodium Gel [Voltaren Gel] 1 gm TOPICAL DAILY PRN PRN Reason: Pain Gabapentin 1,600 mg PO BID Warfarin [Coumadin] 7.5 mg PO DIRECTED Warfarin [Coumadin] 5 mg PO DIRECTED Discharge Medication List Meloxicam [Mobic] 7.5 mg PO DAILY 09/11/16 [History] oxyCODONE-APAP 10-325MG [Percocet 10-325 mg] 1 tab PO Q6H PRN 09/11/16 [History] Albuterol Inhaler [Ventolin Hfa Inhaler] 2 puff INHALATION RT-Q4H PRN 02/02/21 [History] Allopurinol [Zyloprim] 300 mg PO BID 02/02/21 [History] Ammonium Lactate Cream [Lac-Hydrin 12% Cream] 1 applic TOPICAL DAILY PRN 02/02/21 [History] Cephalexin [Keflex] 500 mg PO Q12HR 02/02/21 [History] Cyclobenzaprine [Flexeril] 10 mg PO TID PRN 02/02/21 [History] Diclofenac Sodium Gel [Voltaren Gel] 1 gm TOPICAL DAILY PRN 02/02/21 [History] Famotidine [Pepcid] 40 mg PO HS 02/02/21 [History] Gabapentin 1,600 mg PO BID 02/02/21 [History] Lisinopril-Hctz 10-12.5 mg [Zestoretic 10-12.5] 1 tab PO BID 02/02/21 [History] Warfarin [Coumadin] 5 mg PO DIRECTED 02/02/21 [History] Warfarin [Coumadin] 7.5 mg PO DIRECTED 02/02/21 [History] predniSONE See Taper PO DAILY 02/02/21 [History] Follow up Appointment(s)/Referral(s): Ran Valero MD [Primary Care Provider] - 1-2 days
== END 2021-02-24 08:45 | disposition expired | DRG 4 ==
LOC: EC 14:49 → 4SSUR 16:30 → 3SCARD 02-03 20:30 → 2SICU 02-05 20:51
PROVIDERS: ADMIT Internal Medicine; ATTEND Internal Medicine
PROC: XW0DXM6 Introduction of Baricitinib into Mouth and Pharynx, External Approach, New Technology Group 6 (ICD-10-PCS; 2021-02-02)
PROC: 3E0F7SF Introduction of Other Gas into Respiratory Tract, Via Natural or Artificial Opening (ICD-10-PCS; 2021-02-02)
PROC: 5A1955Z Respiratory Ventilation, Greater than 96 Consecutive Hours (ICD-10-PCS; 2021-02-05)
PROC: 0BH17EZ Insertion of Endotracheal Airway into Trachea, Via Natural or Artificial Opening (ICD-10-PCS; 2021-02-05)
PROC: 0BH17EZ Insertion of Endotracheal Airway into Trachea, Via Natural or Artificial Opening (ICD-10-PCS; 2021-02-05)
PROC: 3E0336Z Introduction of Nutritional Substance into Peripheral Vein, Percutaneous Approach (ICD-10-PCS; 2021-02-06)
PROC: 05HM33Z Insertion of Infusion Device into Right Internal Jugular Vein, Percutaneous Approach (ICD-10-PCS; 2021-02-06)
PROC: 0DH63UZ Insertion of Feeding Device into Stomach, Percutaneous Approach (ICD-10-PCS; 2021-02-14)
PROC: 3E033XZ Introduction of Vasopressor into Peripheral Vein, Percutaneous Approach (ICD-10-PCS; 2021-02-14)
PROC: 0D9770Z Drainage of Stomach, Pylorus with Drainage Device, Via Natural or Artificial Opening (ICD-10-PCS; 2021-02-14)
PROC: 0B110F4 Bypass Trachea to Cutaneous with Tracheostomy Device, Open Approach (ICD-10-PCS; principal; 2021-02-14 09:40)
PROC: 0W9930Z Drainage of Right Pleural Cavity with Drainage Device, Percutaneous Approach (ICD-10-PCS; 2021-02-17)
PROC: 4A133J1 Monitoring of Arterial Pulse, Peripheral, Percutaneous Approach (ICD-10-PCS; 2021-02-20)
PROC: 4A133B1 Monitoring of Arterial Pressure, Peripheral, Percutaneous Approach (ICD-10-PCS; 2021-02-20)
DX: U07.1 COVID-19 (principal); E43 Unspecified severe protein-calorie malnutrition; J12.82 Pneumonia due to coronavirus disease 2019; N17.0 Acute kidney failure with tubular necrosis; A41.89 Other specified sepsis; R65.21 Severe sepsis with septic shock; J80 Acute respiratory distress syndrome; Z66 Do not resuscitate; K72.00 Acute and subacute hepatic failure without coma; G93.40 Encephalopathy, unspecified; I82.433 Acute embolism and thrombosis of popliteal vein, bilateral; I82.413 Acute embolism and thrombosis of femoral vein, bilateral; E87.0 Hyperosmolality and hypernatremia; E87.1 Hypo-osmolality and hyponatremia; E87.2 Acidosis; J93.9 Pneumothorax, unspecified; Z68.44 Body mass index [BMI] 60.0-69.9, adult; K86.1 Other chronic pancreatitis; N39.0 Urinary tract infection, site not specified; T79.7XXA Traumatic subcutaneous emphysema, initial encounter; J98.11 Atelectasis; Z68.42 Body mass index [BMI] 45.0-49.9, adult; Z99.11 Dependence on respirator [ventilator] status; M17.11 Unilateral primary osteoarthritis, right knee; N18.30 Chronic kidney disease, stage 3 unspecified; T50.2X5A Adverse effect of carbonic-anhydrase inhibitors, benzothiadiazides and other diuretics, initial encounter; J43.9 Emphysema, unspecified; I12.9 Hypertensive chronic kidney disease with stage 1 through stage 4 chronic kidney disease, or unspecified chronic kidney disease; E66.01 Morbid (severe) obesity due to excess calories; M19.90 Unspecified osteoarthritis, unspecified site; M54.50 Low back pain, unspecified; S80.822A Blister (nonthermal), left lower leg, initial encounter; S80.821A Blister (nonthermal), right lower leg, initial encounter; R53.1 Weakness; R74.01 Elevation of levels of liver transaminase levels; R53.83 Other fatigue; I45.10 Unspecified right bundle-branch block; J98.6 Disorders of diaphragm; R00.0 Tachycardia, unspecified; E86.0 Dehydration; E86.1 Hypovolemia; L89.320 Pressure ulcer of left buttock, unstageable; R45.1 Restlessness and agitation; E87.5 Hyperkalemia; X58.XXXA Exposure to other specified factors, initial encounter; I87.8 Other specified disorders of veins; E87.70 Fluid overload, unspecified; E87.8 Other disorders of electrolyte and fluid balance, not elsewhere classified; F41.9 Anxiety disorder, unspecified; G89.29 Other chronic pain; I48.91 Unspecified atrial fibrillation; I49.3 Ventricular premature depolarization; Z88.1 Allergy status to other antibiotic agents; Z86.718 Personal history of other venous thrombosis and embolism; Z79.01 Long term (current) use of anticoagulants; Z90.49 Acquired absence of other specified parts of digestive tract; Z79.1 Long term (current) use of non-steroidal anti-inflammatories (NSAID); Z79.899 Other long term (current) drug therapy; Z87.440 Personal history of urinary (tract) infections
CPT/HCPCS: 36415; 43246; 71045; 74018; 80048; 80053; 81001; 82272; 82805; 83036; 83605; 83615; 83735; 84100; 84132; 84145; 84295; 84484; 85025; 85027; 85379; 85610; 85730; 86140; 86850; 86900; 86901; 87040; 87070; 87075; 87077; 87086; 87186; 87205; 87635; 93005; 93970; 94002; 94003; 94640; 94660; 94760; 96374; 96375; 99291